=== PATIENT | male | born 1955 | race Caucasian/White ===

== ENCOUNTER 2019-09-03 18:35 | Emergency (ER) | payer MEDICARE, MEDICAID ==
[~2019-09-03] VITALS: Ht 178 cm; Wt 102.0 kg
[2019-09-03 18:35] VITALS: BP 107/61
--- NOTE | 2019-09-03 18:40 | ED General ---
General Stated Complaint: CONFUSION Source of Information: EMS, Longterm Records Exam Limitations: No Limitations History of Present Illness Date Seen by Provider: September 03, 2019 Time Seen by Provider: 18:37 Initial Comments To ER per EMS from [facility] Alzheimer's unit with reports of agitation, scratched one of the nurses. He is now calm. Timing/Duration: 1/2 Hour Severity: Mild Associated Systoms: Denies Symptoms Allergies and Home Medications Allergies Coded Allergies: No Known Drug Allergies (Unverified , 09/03/19) Patient Home Medication List Home Medication List Reviewed: Yes Review of Systems Review of Systems Constitutional: see HPI (Unable to obtain due to dementia) Physical Exam Vital Signs Vital Signs - First Documented 09/03/19 18:35 Temp 36.2 Pulse 84 Resp 18 B/P (MAP) 107/61 (76) Pulse Ox 98 Capillary Refill : Height, Weight, BMI Height: '" Weight: lbs. oz. kg; BMI Method: General Appearance: No Apparent Distress, WD/WN Eyes: Bilateral Eye Normal Inspection, Bilateral Eye PERRL, Bilateral Eye EOMI Neck: Full Range of Motion, Normal Inspection Respiratory: No Accessory Muscle Use, No Respiratory Distress Cardiovascular: Regular Rate, Rhythm, Normal Peripheral Pulses Gastrointestinal: Non Tender, Soft Extremity: Normal Capillary Refill, Normal Inspection Neurologic/Psychiatric: Alert Skin: Normal Color, Warm/Dry Progress/Results/Core Measures Suspected Sepsis SIRS Temperature: Pulse: Respiratory Rate: Laboratory Tests 09/03/19 18:40: White Blood Count 6.3 Blood Pressure / Mean: Laboratory Tests 09/03/19 18:40: Creatinine 1.28, Platelet Count 299 Results/Orders Lab Results Laboratory Tests Test 09/03/19 18:40 09/03/19 18:55 Range/Units White Blood Count 6.3 4.3-11.0 10^3/uL Red Blood Count 4.01 L 4.35-5.85 10^6/uL Hemoglobin 12.9 L 13.3-17.7 G/DL Hematocrit 38 L 40-54 % Mean Corpuscular Volume 95 80-99 FL Mean Corpuscular Hemoglobin 32 25-34 PG Mean Corpuscular Hemoglobin Concent 34 32-36 G/DL Red Cell Distribution Width 14.3 10.0-14.5 % Platelet Count 299 130-400 10^3/uL Mean Platelet Volume 9.4 7.4-10.4 FL Neutrophils (%) (Auto) 75 42-75 % Lymphocytes (%) (Auto) 19 12-44 % Monocytes (%) (Auto) 4 0-12 % Eosinophils (%) (Auto) 1 0-10 % Basophils (%) (Auto) 0 0-10 % Neutrophils # (Auto) 4.7 1.8-7.8 X 10^3 Lymphocytes # (Auto) 1.2 1.0-4.0 X 10^3 Monocytes # (Auto) 0.3 0.0-1.0 X 10^3 Eosinophils # (Auto) 0.1 0.0-0.3 10^3/uL Basophils # (Auto) 0.0 0.0-0.1 10^3/uL Sodium Level 135 135-145 MMOL/L Potassium Level 3.7 3.6-5.0 MMOL/L Chloride Level 104 98-107 MMOL/L Carbon Dioxide Level 17 L 21-32 MMOL/L Anion Gap 14 5-14 MMOL/L Blood Urea Nitrogen 19 H 7-18 MG/DL Creatinine 1.28 0.60-1.30 MG/DL Estimat Glomerular Filtration Rate 56 BUN/Creatinine Ratio 15 Glucose Level 174 H 70-105 MG/DL Calcium Level 9.2 8.5-10.1 MG/DL Urine Color YELLOW Urine Clarity CLEAR Urine pH 5.5 5-9 Urine Specific Dixon 1.020 1.016-1.022 Urine Protein NEGATIVE NEGATIVE Urine Glucose (UA) NEGATIVE NEGATIVE Urine Ketones NEGATIVE NEGATIVE Urine Nitrite NEGATIVE NEGATIVE Urine Bilirubin NEGATIVE NEGATIVE Urine Urobilinogen 0.2 < = 1.0 MG/DL Urine Leukocyte Esterase NEGATIVE NEGATIVE Urine RBC (Auto) NEGATIVE NEGATIVE Urine RBC NONE /HPF Urine WBC NONE /HPF Urine Squamous Epithelial Cells 0-2 /HPF Urine Crystals PRESENT H /LPF Urine Amorphous Sediment RARE GIOVANNI URATES H /LPF Urine Bacteria NEGATIVE /HPF Urine Casts NONE /LPF Urine Mucus NEGATIVE /LPF Urine Culture Indicated NO My Orders Orders - ZEN GARCIA APRN Cbc With Automated Diff (09/03/19 18:36) Basic Metabolic Panel (09/03/19 18:36) Ua Culture If Indicated (09/03/19 18:36) Lidocaine 2% (Urojet) (Xylocaine Urojet) (09/03/19 19:00) Temazepam Capsule (Restoril Capsule) (09/03/19 19:15) Medications Given in ED Current Medications Medications Dose Ordered Sig/Alanna Route Start Time Stop Time Status Last Admin Dose Admin Temazepam 7.5 mg ONCE ONCE PO 09/03/19 19:15 09/03/19 19:16 DC 09/03/19 19:23 7.5 MG Vital Signs/I&O 09/03/19 18:35 Temp 36.2 Pulse 84 Resp 18 B/P (MAP) 107/61 (76) Pulse Ox 98 Capillary Refill : Departure Communication (Admissions) 1925- he's been cooperative during his whole ER stay, I'll order a Restoril to help him relax this evening Impression Primary Impression: Alzheimer's dementia with behavioral disturbance Qualified Codes: G30.9 - Alzheimer's disease, unspecified; F02.81 - Dementia in other diseases classified elsewhere with behavioral disturbance Disposition: 01 HOME, SELF-CARE Condition: Stable Departure-Patient Inst. Decision time for Depature: 19:25 Patient Instructions: Dementia (DC) ZEN GARCIA APRN September 03, 2019 18:40
--- OUTSIDE RECORDS SUMMARY | 2019-09-03 18:43 | XMS REPORT | Continuity of Care Document ---
Author Author [facility] Address [address] [place] [address] Phone Care Team Providers Care Composer Teaching Artist Name Role Phone Homar Clifton PP [phone] Katlin Berger Unavailable Abdullahi PERRY, Tuyet Unavailable Unavailable Ashley Kelsey Unavailable Cathryn LAUGHLINN, Eden Hardwick Unavailable Unavailable David Malcolm Unavailable Unavailable Leela LAUGHLINN, Rubia Unavailable Ofelia MATUTE, Nneka Unavailable Unavailable Unavailable Problems Name Dates Details ACUTE MAXILLARY SINUSITIS (461.0, J01.00 ) Status: Active Acute sinusitis (461.8, J01.90) Status: Active Allergy to Flomax *GENITOURINARY AGENTS - MISCELLANEOUS* (Renamed from Flomax *GENITOURINARY AGENTS - MISCELLANEOUS*) Status: Active Asthma (493.90, J45.909) Status: Active ATRIAL FIBRILLATION (427.31, I48.91) Status: Active B12 DEFICIENCY (266.2, E53.8) Status: Active BENIGN NEOPLASM OF SKIN OF BREAST (216.5 , D23.5) Status: Active Benign prostatic hypertrophy with urinar y retention (600.01, N40.0) Status: Active BENIGN PROSTATIC HYPERTROPHY WITHOUT LOW ER URINARY TRACT SYMPTOMS (LUTS) (600.00, N40.0) Status: Active BILATERAL EDEMA OF LOWER EXTREMITY (782. 3, R60.0) Status: Active CA of prostate (185, C61) Onset:2005 Status: Active Cellulitis and abscess of leg (682.6, L0 2.419) Status: Active Chronic atrial fibrillation (Renamed fro m Atrial fibrillation, chronic) (427.31, I48.2) Status: Active Chronic kidney disease, stage III (moder ate) (585.3, N18.3) Status: Active COMMON COLD VIRUS (460, J00) Status: Active CONJUNCTIVITIS (372.30, H10.9) Status: Active CONSTIPATION, CHRONIC (564.00, K59.09) Status: Active CONTACT DERMATITIS OR ECZEMA (692.9, L25 .9) Status: Active Delusional disorder (297.1, F22) Status: Active DEPRESSION (311, F32.9) Status: Active DTAP/IPV/HBV VACCINATION (V06.8, Z23) Status: Active DYSTHYMIC DISORDER (300.4, F34.1) Status: Active Encounter for long-term (current) use of other medications (V58.69, Z79.899) Status: Active ENCOUNTER FOR SCREENING COLONOSCOPY (V76 .51, Z12.11) Status: Active FLU VACCINE - HIGH DOSE (Renamed from NE ED FOR IMMUNIZATION AGAINST INFLUENZA) (V04.81, Z23) Status: Active FLU VACCINE - HIGH DOSE (Renamed from NE ED FOR IMMUNIZATION AGAINST INFLUENZA) (V04.81, Z23) Status: Active FLU VACCINE - HIGH DOSE (Renamed from NE ED FOR IMMUNIZATION AGAINST INFLUENZA) (V04.81, Z23) Status: Active FLU VACCINE - QUADRAVALENT (Renamed from NEED FOR IMMUNIZATION AGAINST INFLUENZA) (V04.81, Z23) Status: Active GERD (GASTROESOPHAGEAL REFLUX DISEASE) ( 530.81, K21.9) Status: Active Heart failure, right (428.0) Status: Active Hematuria (599.70, R31.9) Status: Active Hypercholesterolemia (272.0, E78.00) Status: Active HYPERLIPIDEMIA (272.4, E78.5) Status: Active HYPERTENSION (401.9, I10) Status: Active Hypokalemia (276.8, E87.6) Status: Active Iron deficiency anemia (280.9, D50.9) Status: Active Magnesium deficiency (275.2, E61.2) Status: Active Malaise and fatigue (780.79, R53.81) Status: Active NEED FOR PNEUMOCOCCAL VACCINE (V03.82, Z 23) Status: Active NEOPLASM OF UNCERTAIN BEHAVIOR OF SKIN O F BREAST (238.2, D48.5) Status: Active Obesity (278.00, E66.9) Status: Active OBESITY, MORBID (278.01, E66.01) Status: Active OBSTRUCTIVE SLEEP APNEA (327.23, G47.33) Status: Active Osteomalacia (268.2, M83.9) Status: Active OTHER LYMPHEDEMA (457.1, I89.0) Status: Active PREVNAR 13 (Renamed from NEED FOR VACCIN ATION WITH 13-POLYVALENT PNEUMOCOCCAL CONJUGATE VACCINE) (V03.82, Z23) Status: Active Primary pulmonary hypertension (416.0, I 27.0) Status: Active Renal failure (ARF), acute on chronic (5 84.9) Status: Active Renal insufficiency (Renamed from Renal function impairment) (593.9, N28.9) Status: Active Right bundle branch block and incomplete left bundle branch block (426.53, I45.2) Status: Active SCHIZOPHRENIA (295.90, F20.9) Status: Active SHINGLES (053.9, B02.9) Onset:1981 Status: Active Shortness of breath (786.05, R06.02) Status: Active Stasis dermatitis (454.1, I83.10) Status: Active TYPE II DIABETES MELLITUS (250.00, E11.9 ) Status: Active Unspecified Diagnosis Status: Active Unspecified Diagnosis Status: Active Urinary incontinence (788.30, R32) Status: Active Urinary incontinence (788.30, R32) Status: Active VITAMIN B12 DEFICIENCY (266.2, E53.8) Status: Active Vitamin D deficiency (268.9, E55.9) Status: Active WEIGHT LOSS (783.21, R63.4) Status: Active Medications Name Dates Details ABILIFY, 15MG (Oral Tablet) 1 Tablet daily for 30 days Quantity: 30 {Tablet} Ordered:25-Apr-2013 Hemanth Meza MD* Start 25-Apr-2013 Active Comments: for delusional disorder AMOXICILLIN, 500MG (Oral Capsule) 1 Capsule three times daily for 10 days * Quantity: 30 {Capsule} Refills: 0 Ordered:11-Aug-2013 Rubia Swenson LPN* Start 08-May-2011 Active ATORVASTATIN CALCIUM, 40MG (Oral Tablet) 1 Tablet at bedtime for 30 days * Quantity: 30 {Tablet} Refills: 12 Ordered:21-Jun-2013 Hemanth Meza MD* Start 21-Jun-2013 Active Comments: for hypercholesterolemia CYANOCOBALAMIN, 1000MCG/ML (Injection Solution) 1 Solution use as directed every day for 7 days for 30 days * Refills: 12 Ordered: Hemanht Meza MD* Start 22-Jun-2012 Active DETROL LA, 4MG (Oral Capsule Extended Release 24 Hour) one Capsule ER 24HR daily for 30 days * Quantity: 30 {Capsule_ER_24HR} Refills: 4 Ordered:11-Aug-2013 Katlin Montero* Start 16-Jan-2010 Active Comments: for urinary incontinence (OK to use generic) Digoxin 250mcg daily Active DILTIAZEM HCL CD, 360MG (Oral Capsule Extended Release 24 Hour) 1 (one) Capsule ER 24HR Capsule ER 24HR daily for 30 days * Quantity: 30 {Capsule} Refills: 5 Ordered:01-Feb-2014 Hemanth Meza MD* Start 24-Aug-2013 Active Comments: 08/09/13 Called to Jay at [facility] Eliquis 5 MG Oral Tablet 1 (one) Tablet two times daily for 30 days * Quantity: 60 {Tablet} Refills: 0 Ordered:09-Feb-2017 Homar Clifton Kali * Start 09-Feb-2017 Active ESCITALOPRAM OXALATE, 20MG (Oral Tablet) 1 Tablet daily for 30 days * Quantity: 30 {Tablet} Refills: 2 Ordered:16-Nov-2013 Homar Clifton Kali * Start 16-Nov-2013 Active Comments: for depression FAMOTIDINE, 20MG (Oral Tablet) 1 Tablet two times daily for 30 days * Quantity: 60 {Tablet} Refills: 5 Ordered:01-Aug-2013 Hemanth Meza MD* Start 01-Aug-2013 Active Comments: for acid FUROSEMIDE, 20MG (Oral Tablet) 1 (one) Tablet two times daily for 30 days * Quantity: 60 {Tablet} Refills: 0 Ordered:01-Feb-2014 Homar Clifton Kali * Start 01-Feb-2014 Active Comments: for edema*40 mg at 7 am20 mg at 1 pm LEXAPRO, 20MG (Oral Tablet) (20 MG) Active METOPROLOL SUCCINATE ER, 25MG (Oral Tablet Extended Release 24 Hour) 1 Tablet ER 24HR two times daily for 30 days * Quantity: 60 {Tablet} Refills: 4 Ordered: Hemanth Meza MD* Start Active Comments: for hypertension MIRTAZAPINE, 15MG (Oral Tablet) 1 Tablet daily for 30 days * Quantity: 30 {Tablet} Refills: 6 Ordered:18-Jul-2013 Hemanth Meza MD* Start 18-Jul-2013 Active NYSTATIN, 075514HMHD/GM (External Powder) 1 (one) application application two times daily until clear for 0 days * Quantity: 1 {Applicator} Refills: 0 Ordered: Homar Clifton Kali * Start 15-Jan-2015 Active Comments: Called to Avinash myers [facility]--she will order from [facility].--01/15/15 Khushi OXYBUTYNIN CHLORIDE, 5MG (Oral Tablet) 1 Tablet three times daily for 30 days * Quantity: 90 {Tablet} Refills: 3 Ordered: Hemanth Meza MD* Start Active POTASSIUM CHLORIDE MICHELLE ER, 20MEQ (Oral Tablet Extended Release) 1 Tablet ER daily for 30 days * Quantity: 30 {Tablet_ER} Refills: 12 Ordered:14-Apr-2012 Radha Handy MA* Start 14-Apr-2012 Active Comments: for hypokalemia Rivaroxaban 20mg daily Active TRIAMCINOLONE ACETONIDE, 0.5% (External Cream) 1 Cream apply sparingly to rash on feet and legs for 30 days * Quantity: 45 {Gram(s)} Refills: 6 Ordered:16-Aug-2013 Rubia Swenson LPN* Start 05-Nov-2011 Active Comments: for stasis dermatitis Acetylcysteine 500mg daily Inactive ASPIRIN EC, 81MG (Oral Tablet Delayed Release) [address] daily for 30 days * Quantity: 30 {Tablet_DR} Refills: 0 Ordered:28-Jun-2011 Hemanth Meza MD* Start 28-May-2011 End 27-Jun-2011 Inactive ASPIRIN, 81MG (Oral Tablet) one daily (81 MG) * Start 20-Dec-2008 Inactive Comments: to prevent strokes and heart attacks Augmentin 875-125 MG Oral Tablet 1 (one) Tablet two times daily for 14 days * Quantity: 28 {Tablet} Refills: 0 Ordered: Homar Clifton Kali * Start 19-May-2016 End 02-Jun-2016 Inactive BUMETANIDE, 2MG (Oral Tablet) 2 (two) Tablet two times daily for 30 days * Quantity: 120 {Tablet} Refills: 0 Ordered:28-Jun-2011 Hemanth Meza MD* Start 28-May-2011 End 27-Jun-2011 Inactive CPAP 15 cm of pressure for sleep Inactive Comments: for obstructive sleep apnea CUBICIN, 500MG (Intravenous Solution Reconstituted) 1 For Solution daily for 5 days * Quantity: 5 {For_Solution} Refills: 0 Ordered:21-Dec-2012 Rubia Swenson LPN* Start 21-Dec-2012 End 26-Dec-2012 Inactive Comments: for cellulitis of the right leg DIGOXIN, 0.125MG (Oral Tablet) 1/2 Tablet every other day for 30 days * Quantity: 15 {Tablet} Refills: 12 Ordered:27-Dec-2012 Rubia Swenson LPN* Start 07-Jun-2012 End 27-Dec-2012 Inactive DILTIAZEM HCL ER, 180MG (Oral Capsule Extended Release 24 Hour) 1 Capsule ER 24HR 380mg daily for 30 days * Quantity: 30 {Capsule} Refills: 6 Ordered:24-Aug-2013 Sara Jennings LPN* Start 09-Aug-2013 End 24-Aug-2013 Inactive Comments: 08/09/13 [facility] ER [facility] DILTIAZEM HCL, 90MG (Oral Tablet) 1 Tablet every eight hours for 30 days * Quantity: 30 {Tablet} Refills: 4 Ordered:01-Aug-2013 Ethel Pierre CMA* Start 15-Jul-2013 End 01-Aug-2013 Inactive Comments: for atrial fib prevention DOXYCYCLINE HYCLATE, 100MG (Oral Capsule) 1 (one) Capsule two times daily on an empty stomach for 14 days * Quantity: 28 {Capsule} Refills: 0 Ordered:05-Nov-2011 Mahnaz Pratt * Start 05-Nov-2011 End 19-Nov-2011 Inactive Comments: for skin infection DUONEB, 0.5-2.5 (3)MG/3ML (Inhalation Solution) 1 Solution every six hours for 30 days * Refills: 0 Ordered:03-Sep-2011 Hemanth Meza MD* Start 22-Jul-2011 End 21-Aug-2011 Inactive Flonase 50 MCG/ACT Nasal Suspension 2 (two) Orange daily for 10 days * Quantity: 1 {Bottle} Refills: 0 Ordered: Ashley Larry* Start End Inactive Flonase Allergy Relief 50 MCG/ACT Nasal Suspension 2 (two) Orange daily for 30 days * Quantity: 1 {Bottle} Refills: 0 Ordered: Homar Clifton Kali * Start 19-May-2016 End 18-Jun-2016 Inactive GUAIFENESIN, 1200MG (Oral Tablet Extended Release 12 Hour) 1 two times daily (1200 MG) Inactive KEFLEX, 500MG (Oral Capsule) 1 (one) Capsule three times daily for 7 days * Quantity: 21 {Capsule} Refills: 0 Ordered:25-Jan-2016 Homar Clifton Kali * Start 25-Jan-2016 End 01-Feb-2016 Inactive LABETALOL HCL, 100MG (Oral Tablet) one Tablet two times daily for 30 days * Quantity: 60 {Tablet} Refills: 2 Ordered:19-Jan-2009 Adenike Gutierrez LPN* Start 19-Jan-2009 End 16-Jan-2010 Inactive Comments: for hypertension LISINOPRIL, 20MG (Oral Tablet) one Tablet daily for 30 days * Quantity: 30 {Tablet} Refills: 2 Ordered:15-Dec-2008 Adenike Gutierrez LPN* Start 15-Dec-2008 End 16-Jan-2010 Inactive Comments: for hypertension METOPROLOL TARTRATE, 50MG (Oral Tablet) 1 Tablet every eight hours for 30 days * Refills: 0 Ordered:28-Jun-2011 Hemanth Meza MD* Start 28-May-2011 End 27-Jun-2011 Inactive MIRALAX (Oral Packet) as needed Inactive Comments: Medication taken as needed. Mucinex 600 MG Oral Tablet Extended Release 12 Hour 2 (two) Tablet two times daily for 14 days * Quantity: 56 {Tablet} Refills: 0 Ordered: Homar Clifton Kali * Start 19-May-2016 End 02-Jun-2016 Inactive POTASSIUM CHLORIDE, 20MEQ (Oral Packet) 2 (two) Tablet(s) every eight hours for 30 days * Refills: 0 Ordered:28-Jun-2011 Hemanth Meza MD* Start 28-May-2011 End 27-Jun-2011 Inactive POTASSIUM CHLORIDE, 40 MEQ/15ML(20%) (Oral Liquid) 1 Liquid two times daily for 30 days * Refills: 0 Ordered: Hemanth Meza MD* Start End Inactive Robitussin Cough+Chest Maicol DM 20-400 MG/20ML Oral Liquid 5 milliliter every six hours prn for 5 days * Quantity: 120 {Milliliter} Refills: 0 Ordered: Ashley Larry* Start End Inactive Comments: to give for 5 days SUDAFED PE MAXIMUM STRENGTH, 10MG (Oral Tablet) 1 every four hours, as needed (10 MG) Inactive Comments: Medication taken as needed. TOBRAMYCIN SULFATE, 0.3% (Ophthalmic Solution) 2 drops in the left eye Solution four times daily, as needed for 5 days * Quantity: 1 {Solution} Refills: 0 Ordered:05-Nov-2011 Hemanth Meza MD* Start 05-Nov-2011 End 10-Nov-2011 Inactive Comments: Medication taken as needed. for infection and mattering VITAMIN D, 50,000unit (Oral Capsule) (Free Text) 1 Capsule weekly for 8 weeks for 60 days * Quantity: 8 {Capsule} Refills: 0 Ordered:31-May-2012 Radha Handy MA* Start 31-May-2012 End 30-Jul-2012 Inactive XARELTO, 20MG (Oral Tablet) one daily (20 MG) Inactive Comments: to prevent strokes with atrial fibrillation Lisinopril 5 MG Oral Tablet 1 Tablet daily for 0 days * Quantity: 30 {Tablet} Refills: 6 Ordered:09-Feb-2017 Rubjohnalevane Horton, Homar Johan Cliftoni * Start 09-Feb-2017 End 09-Feb-2017 Discontinued Xarelto 20 MG Oral Tablet 1 Tablet daily for 30 days * Quantity: 30 {Tablet} Refills: 12 Ordered:09-Feb-2017 Rubjohnalevane Horton, Homar Josh Horton Homar * Start 09-Feb-2017 End 09-Feb-2017 Discontinued Comments: to prevent strokes Allergies and Adverse Reactions Name Dates Details NKDA (Renamed from Aspirin *ANALGESICS - NonNarcotic*) (Vasile rgy) Status: Active No Known Drug Allergies (Allergy) Onset: Status : Active Past Medical History Name Dates Details Edema (782.3, R60.9) Status: Inactive HYPERTENSION, BENIGN ESSENTIAL, AGE 0-18 (401.1, I10) Status: Inactive URINARY FREQUENCY (788.41, R35.0) Status: Inactive Procedures Procedure Dates Details Flu (Influenza) *: flu shot Ordered:09-Jan-2017 IMMUNIZ ADMNIN, 1 VAC, SNGL/COMBO (29912) Completed:09-Jan-2017 INTRAMUSCULAR ADMINISTRATION OF HIGH DOS E SPLIT VIRUS PRESERVATIVE FREE INFLUENZA VACCINE ([id number]) Completed:09-Jan-2017 Follow up if no improvement or if symptoms worsen Ordered:September-2016 MRI BRAIN W/O CONTRAST ([id number]) Ordered:05-Feb-2016 IMMUNIZ ADMN, EA AD VAC SNGL/COMBO ([id number]) Ordered:31-Jan-20 16 PREVNAR 13 (94393) Completed: 6 Flu (Influenza) *: flu shot Ordered:31-Jan-2016 IMMUNIZ ADMNIN, 1 VAC, SNGL/COMBO ([id number]) Completed:31-Jan-2016 INTRAMUSCULAR ADMINISTRATION OF HIGH DOS E SPLIT VIRUS PRESERVATIVE FREE INFLUENZA VACCINE ([id number]) Completed:31-Jan-2016 MRI BRAIN W/O CONTRAST ([id number]) Ordered:10-Jan-2016 Flu (Influenza) *: flu shot Ordered:16-Jan-2015 IMMUNIZ ADMNIN, 1 VAC, SNGL/COMBO ([id number]) Completed:16-Jan-2015 INTRAMUSCULAR ADMINISTRATION OF HIGH DOS E SPLIT VIRUS PRESERVATIVE FREE INFLUENZA VACCINE ([id number]) Completed:16-Jan-2015 Follow up in 2 months Ordered:01-Feb-2014 IMMUNIZATION ADMIN ([id number]) Completed:Jan-2014 PNEUMOCOCCAL VACCINE ([id number]) Completed:2 11-Jan-2014 Flu (Influenza) *: flu shot Ordered:31-Jan-2014 IMMUNIZATION ADMIN ([id number]) Completed:Jan-2014 FLU VACCINE NO PRSV QUADRAVALENT 3 YRS+ ([id number]) Completed:31-Jan-2014 FOLLOW UP BY PCP Ordered:08-May-2011 IMMUNIZ ADMNIN, 1 VAC, SNGL/COMBO ([id number]) Ordered: 9 TDAP VACCINE IM, >7 YEARS ([id number]) Ordered:20-Dec-2008 Gallbladder Surgery - Laparoscopic Surgeries Comments: all 4 wis dom teeth removed in 1983 in [facility]; lap cholecystectomy 197; vasectomy in 1988; open prostatectomy attempt by [facility] in 2005 but due to fear of cutting nerves, they backed off on removing the prostate. Vasectomy Immunization Name Dates Details Influenza (3 years and up) Lot #: [id number] Administered on:13-Jan-2012 Comments: Site: Deltoid ( Left); Given at [facility] by Sherri PERRY Influenza (3 years and up) Lot #: [id number] Administered on:28-Dec-2012 Comments: Site: Deltoid (Right) Influenza, preserv. free, enhanced immun ogncty, IM Lot #: [id number] Administered on:16-Jan-2015 Comments: Site: Deltoid (Right) Influenza, preserv. free, enhanced immun ogncty, IM Lot #: [id number] Administered on:31-Jan-2016 Comments: Site: Deltoid (Left) Influenza, preserv. free, enhanced immun ogncty, IM Lot #: [id number] Administered on:09-Jan-2017 Comments: Site: Deltoid ( Left) Pneumococcal (2 years and up) Lot #: [id number] Administered on:19-Jan-2014 Comments: Site: Deltoid (Right); Admin by Antoinette Sheets RN Pneumococcal conjugate vaccine, 13 floresita t, IM Lot #: [id number] Administered on:31-Jan-2016 Comments: Site: Deltoid (Right) Quadrivalent Influenza Vaccine for 3 yrs & up. Lot #: [id number] Administered on:19-Jan-2014 Comments: Site: Deltoid (Left); Admin by Antoinette Sheets RN Tdap (7 years and up) Lot #: [id number] Administered on:20-Dec-2008 Comments: Site: Deltoid (Left) Family History Name Dates Details Brother 1 Comments: doesn't know Status: Active Daughter 1 Comments: doesn't know her Status: Active Daughter 2 Comments: In good health Status: Active Father Comments: , acute m yocardial condition Status: Active Maternal Grandfather Comments: Status: Active Maternal Grandmother Comments: Status: Active Mother Comments: , pneumon ia (ALS) Status: Active Paternal Grandfather Comments: Status: Active Paternal Grandmother Comments: Status: Active Sister 1 Comments: , ALS? 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 Comments: [facility] Status: Active Vital Signs Date Test Result Details 12:27 Temperature 99 f Comments: Method: T ympanic Pulse 87 /min Comments: Pattern: Regular Respiration Rate 18 /min Comments: Pattern: Unlabored O2 SAT 96 % Comments: Room air BP Systolic 132 mm[Hg] Comments: Patient P osition: Sitting; Cuff Location: Left Arm; Cuff Size: Standard BP Diastolic 80 mm[Hg] Comments: Patient P osition: Sitting; Cuff Location: Left Arm; Cuff Size: Standard Weight 319 lb Height 69 in Body Mass Index Calculated 47.11 kg/m2 Body Surface Area Calculated 2.52 m2 19-May-2016 11:12 Temperature 97.4 f Comments: Method: T ympanic Pulse 90 /min Comments: Pattern: Regular Respiration Rate 18 /min Comments: Pattern: Unlabored O2 SAT 95 % Comments: Room air BP Systolic 118 mm[Hg] Comments: Patient P osition: Sitting; Cuff Location: Left Arm; Cuff Size: Standard BP Diastolic 70 mm[Hg] Comments: Patient P osition: Sitting; Cuff Location: Left Arm; Cuff Size: Standard Weight 274.5 lb Height 69 in Body Mass Index Calculated 40.54 kg/m2 Body Surface Area Calculated 2.36 m2 05-Feb-2016 15:35 Temperature 98.2 f Comments: Method: T ympanic Pulse 94 /min Comments: Pattern: Regular Respiration Rate 20 /min Comments: Pattern: Unlabored O2 SAT 98 % Comments: Room air BP Systolic 108 mm[Hg] Comments: Patient P osition: Sitting; Cuff Location: Right Arm; Cuff Size: Standard BP Diastolic 72 mm[Hg] Comments: Patient P osition: Sitting; Cuff Location: Right Arm; Cuff Size: Standard Weight 344.25 lb Height 69 in Body Mass Index Calculated 50.84 kg/m2 Body Surface Area Calculated 2.6 m2 25-Jan-2016 11:31 Temperature 98.9 f Comments: Method: T ympanic Pulse 102 /min Comments: Pattern: Regular Respiration Rate 18 /min Comments: Pattern: Unlabored O2 SAT 99 % Comments: Room air BP Systolic 116 mm[Hg] Comments: Patient P osition: Sitting; Cuff Location: Left Arm; Cuff Size: Standard BP Diastolic 78 mm[Hg] Comments: Patient P osition: Sitting; Cuff Location: Left Arm; Cuff Size: Standard Weight 342 lb Height 69 in Body Mass Index Calculated 50.5 kg/m2 Body Surface Area Calculated 2.59 m2 17-Jul-2015 17:17 Temperature 98.3 f Pulse 84 /min Comments: Pattern: Regular Respiration Rate 20 /min Comments: Pattern: Unlabored O2 SAT 91 % Comments: Room air BP Systolic 125 mm[Hg] Comments: Patient P osition: Sitting; Cuff Location: Left Arm; Cuff Size: Standard BP Diastolic 75 mm[Hg] Comments: Patient P osition: Sitting; Cuff Location: Left Arm; Cuff Size: Standard Weight 356 lb 01-Feb-2014 10:25 Temperature 97.1 f Comments: Method: T ympanic Pulse 77 /min Comments: Pattern: Regular Respiration Rate 16 /min Comments: Pattern: Unlabored O2 SAT 98 % Comments: Room air BP Systolic 118 mm[Hg] Comments: Patient P osition: Sitting; Cuff Location: Left Arm; Cuff Size: Standard BP Diastolic 70 mm[Hg] Comments: Patient P osition: Sitting; Cuff Location: Left Arm; Cuff Size: Standard Weight 335.5 lb Height 69 in Body Mass Index Calculated 49.54 kg/m2 Body Surface Area Calculated 2.57 m2 11-Aug-2013 12:57 Temperature 98.6 f Comments: Method: T ympanic Pulse 82 /min Comments: Pattern: Regular Respiration Rate 16 /min Comments: Pattern: Unlabored O2 SAT 97 % Comments: Room air BP Systolic 110 mm[Hg] Comments: Patient P osition: Sitting; Cuff Location: Left Arm; Cuff Size: Standard BP Diastolic 70 mm[Hg] Comments: Patient P osition: Sitting; Cuff Location: Left Arm; Cuff Size: Standard Weight 336.5 lb Height 69 in Body Mass Index Calculated 49.69 kg/m2 Body Surface Area Calculated 2.58 m2 22-Feb-2013 15:30 Temperature 96.8 f Comments: Method: T ympanic Pulse 68 /min Comments: Pattern: Regular Respiration Rate 18 /min Comments: Pattern: Unlabored O2 SAT 96 % Comments: Room air BP Systolic 108 mm[Hg] Comments: Patient P osition: Sitting; Cuff Location: Left Arm; Cuff Size: Standard BP Diastolic 60 mm[Hg] Comments: Patient P osition: Sitting; Cuff Location: Left Arm; Cuff Size: Standard Weight 322 lb 25-Jan-2013 15:26 Temperature 96.6 f Comments: Method: T ympanic Pulse 80 /min Comments: Pattern: Regular Respiration Rate 18 /min Comments: Pattern: Unlabored O2 SAT 96 % Comments: Room air BP Systolic 116 mm[Hg] Comments: Patient P osition: Sitting; Cuff Location: Left Arm; Cuff Size: Standard BP Diastolic 68 mm[Hg] Comments: Patient P osition: Sitting; Cuff Location: Left Arm; Cuff Size: Standard Weight 314 lb 12-Jan-2013 15:26 Temperature 96 f Comments: Method: T ympanic Pulse 56 /min Comments: Pattern: Regular Respiration Rate 18 /min Comments: Pattern: Unlabored O2 SAT 96 % Comments: Room air BP Systolic 100 mm[Hg] Comments: Patient P osition: Sitting; Cuff Location: Left Arm; Cuff Size: Standard BP Diastolic 68 mm[Hg] Comments: Patient P osition: Sitting; Cuff Location: Left Arm; Cuff Size: Standard Weight 306 lb 29-Dec-2012 15:31 Temperature 96.6 f Comments: Method: T ympanic Pulse 85 /min Comments: Pattern: Regular Respiration Rate 18 /min Comments: Pattern: Unlabored O2 SAT 94 % Comments: Room air BP Systolic 110 mm[Hg] Comments: Patient P osition: Sitting; Cuff Location: Left Arm; Cuff Size: Standard BP Diastolic 68 mm[Hg] Comments: Patient P osition: Sitting; Cuff Location: Left Arm; Cuff Size: Standard Weight 306 lb 24-Dec-2012 15:45 Temperature 97 f Comments: Method: T ympanic Pulse 70 /min Comments: Pattern: Regular Respiration Rate 18 /min Comments: Pattern: Unlabored O2 SAT 97 % Comments: Room air BP Systolic 108 mm[Hg] Comments: Patient P osition: Sitting; Cuff Location: Left Arm; Cuff Size: Standard BP Diastolic 60 mm[Hg] Comments: Patient P osition: Sitting; Cuff Location: Left Arm; Cuff Size: Standard Weight 310.75 lb 21-Dec-2012 15:40 Temperature 96.7 f Comments: Method: T ympanic Pulse 50 /min Comments: Pattern: Regular Respiration Rate 18 /min Comments: Pattern: Unlabored O2 SAT 91 % Comments: Room air BP Systolic 116 mm[Hg] Comments: Patient P osition: Sitting; Cuff Location: Left Arm; Cuff Size: Standard BP Diastolic 68 mm[Hg] Comments: Patient P osition: Sitting; Cuff Location: Left Arm; Cuff Size: Standard Weight 313 lb 12:19 Temperature 97.6 f Comments: Method: T ympanic Pulse 76 /min Comments: Pattern: Regular O2 SAT 98 % Comments: Room air BP Systolic 102 mm[Hg] Comments: Patient P osition: Sitting; Cuff Location: Left Arm; Cuff Size: Standard BP Diastolic 64 mm[Hg] Comments: Patient P osition: Sitting; Cuff Location: Left Arm; Cuff Size: Standard Weight 322.5 lb 12:38 Temperature 96.4 f Comments: Method: T ympanic Pulse 66 /min Comments: Pattern: Regular Respiration Rate 20 /min Comments: Pattern: Unlabored BP Systolic 92 mm[Hg] Comments: Patient P osition: Sitting; Cuff Location: Right Arm; Cuff Size: Standard BP Diastolic 62 mm[Hg] Comments: Patient P osition: Sitting; Cuff Location: Right Arm; Cuff Size: Standard Weight 329.75 lb Height 69 in Body Mass Index Calculated 48.7 kg/m2 Body Surface Area Calculated 2.55 m2 18-Nov-2011 11:36 Temperature 98.4 f Comments: Method: T ympanic Pulse 54 /min Comments: Pattern: Regular O2 SAT 95 % Comments: Room air BP Systolic 122 mm[Hg] Comments: Patient P osition: Sitting; Cuff Location: Right Arm; Cuff Size: Standard BP Diastolic 60 mm[Hg] Comments: Patient P osition: Sitting; Cuff Location: Right Arm; Cuff Size: Standard Weight 403.25 lb 05-Nov-2011 11:41 Temperature 98.4 f Pulse 54 /min Comments: Pattern: Regular O2 SAT 95 % Comments: Room air BP Systolic 120 mm[Hg] Comments: Patient P osition: Sitting; Cuff Location: Left Arm; Cuff Size: Standard BP Diastolic 78 mm[Hg] Comments: Patient P osition: Sitting; Cuff Location: Left Arm; Cuff Size: Standard Weight 418.25 lb 12:35 Temperature 97.2 f Comments: Method: T ympanic Pulse 60 /min Comments: Pattern: Regular O2 SAT 94 % Comments: Room air BP Systolic 120 mm[Hg] Comments: Patient P osition: Sitting; Cuff Location: Right Arm; Cuff Size: Standard BP Diastolic 62 mm[Hg] Comments: Patient P osition: Sitting; Cuff Location: Right Arm; Cuff Size: Standard Weight 416 lb 12:19 Temperature 97.7 f Comments: Method: T emporal Pulse 84 /min Comments: Pattern: Regular Respiration Rate 20 /min Comments: Pattern: Unlabored BP Systolic 128 mm[Hg] Comments: Patient P osition: Sitting; Cuff Location: Left Arm; Cuff Size: Standard BP Diastolic 84 mm[Hg] Comments: Patient P osition: Sitting; Cuff Location: Left Arm; Cuff Size: Standard Weight 415.25 lb 11:52 Temperature 97.8 f Comments: Method: T ympanic Pulse 81 /min Comments: Pattern: Regular BP Systolic 118 mm[Hg] Comments: Patient P osition: Sitting; Cuff Location: Right Arm; Cuff Size: Standard BP Diastolic 64 mm[Hg] Comments: Patient P osition: Sitting; Cuff Location: Right Arm; Cuff Size: Standard Weight 421.25 lb 12:34 Temperature 98.8 f Comments: Method: T ympanic Pulse 90 /min Comments: Pattern: Regular Respiration Rate 20 /min Comments: Pattern: Unlabored O2 SAT 93 % Comments: Room air BP Systolic 128 mm[Hg] Comments: Patient P osition: Sitting; Cuff Location: Left Arm; Cuff Size: Standard BP Diastolic 72 mm[Hg] Comments: Patient P osition: Sitting; Cuff Location: Left Arm; Cuff Size: Standard Weight 431.75 lb 28-May-2011 13:04 Temperature 98.8 f Comments: Method: T ympanic Pulse 128 /min Comments: Pattern: Regular Respiration Rate 24 /min Comments: Pattern: Unlabored BP Systolic 138 mm[Hg] Comments: Patient P osition: Sitting; Cuff Location: Right Arm; Cuff Size: Standard BP Diastolic 88 mm[Hg] Comments: Patient P osition: Sitting; Cuff Location: Right Arm; Cuff Size: Standard Weight 512.5 lb 16-May-2011 12:42 Temperature 97.5 f Comments: Method: T ympanic Pulse 104 /min Comments: Pattern: Regular O2 SAT 93 % Comments: Room air BP Systolic 146 mm[Hg] Comments: Patient P osition: Sitting; Cuff Location: Right Arm; Cuff Size: Standard BP Diastolic 98 mm[Hg] Comments: Patient P osition: Sitting; Cuff Location: Right Arm; Cuff Size: Standard Weight 547.25 lb 08-May-2011 10:38 Temperature 97.3 f Comments: Method: T ympanic Pulse 124 /min Comments: Pattern: Regular Respiration Rate 20 /min Comments: Pattern: Unlabored O2 SAT 97 % Comments: Room air BP Systolic 142 mm[Hg] Comments: Patient P osition: Sitting; Cuff Location: Left Arm; Cuff Size: Standard BP Diastolic 74 mm[Hg] Comments: Patient P osition: Sitting; Cuff Location: Left Arm; Cuff Size: Standard Weight 539.25 lb 16-Jan-2010 16:29 Temperature 98.7 f Comments: Method: T ympanic Pulse 104 /min Comments: Pattern: Regular Respiration Rate 24 /min Comments: Pattern: Unlabored BP Systolic 180 mm[Hg] Comments: Patient P osition: Sitting; Cuff Location: Right Arm; Cuff Size: Large BP Diastolic 70 mm[Hg] Comments: Patient P osition: Sitting; Cuff Location: Right Arm; Cuff Size: Large Weight 507.5 lb 19-Jan-2009 11:56 Temperature 98.3 f Comments: Method: T ympanic Pulse 116 /min Comments: Pattern: Regular Respiration Rate 24 /min Comments: Pattern: Unlabored BP Systolic 182 mm[Hg] Comments: Patient P osition: Sitting; Cuff Location: Left Arm; Cuff Size: Standard BP Diastolic 92 mm[Hg] Comments: Patient P osition: Sitting; Cuff Location: Left Arm; Cuff Size: Standard Weight 522.25 lb 20-Dec-2008 15:48 Temperature 99 f Comments: Method: T ympanic Pulse 104 /min Comments: Pattern: Regular Respiration Rate 28 /min Comments: Pattern: Unlabored BP Systolic 144 mm[Hg] Comments: Patient P osition: Sitting; Cuff Location: Left Arm; Cuff Size: Standard BP Diastolic 66 mm[Hg] Comments: Patient P osition: Sitting; Cuff Location: Left Arm; Cuff Size: Standard Weight 525.75 lb 15-Dec-2008 12:50 Temperature 98.9 f Comments: Method: T ympanic Pulse 104 /min Comments: Pattern: Regular Respiration Rate 16 /min Comments: Pattern: Unlabored BP Systolic 154 mm[Hg] Comments: Patient P osition: Sitting; Cuff Location: Left Arm; Cuff Size: Standard BP Diastolic 96 mm[Hg] Comments: Patient P osition: Sitting; Cuff Location: Left Arm; Cuff Size: Standard Weight 532.75 lb Results Date Description Value Details 16-May-2011 14:19 CULTURE, BLOOD Comments: ANT IBIOTIC RX: YES AMOXACILLIN PRELIM MICROBIOLOGY RESULTS (Normal) Comments: SITERT ARMDAY 1 RESULT[2011 08:45 BS] NO GROWTH @ DAY 1 14:18 CULTURE, BLOOD Comments: ANTIB IOTIC RX: YES PRELIM MICROBIOLOGY RESULTS (Normal) Comments: SITERT ARMDAY 1 RESULT[2011 08:44 BS] NO GROWTH @ DAY 1 Treatment Plan * BASIC METABOLIC PANEL (99407); Ordered: 07/17/2015 * PSA (Medicare) (G0103); Ordered: 07/17/2015 * THEODORE CULTURE-URINE (31190); Ordered: 07/04/2013 * Chem 8 BMP (95258); Ordered: 12/24/2012; Note: STANDING ORDER * CBC (31853); Ordered: 12/21/2012 * Chem 8 BMP (81325); Ordered: 12/21/2012 * VITAMIN D 25 (CALCIFEROL)(73829); Ordered: 05/31/2012 * CBC (84617); Ordered: 01/09/2012 * URINALYSIS, (52950); Ordered: 01/09/2012 * THEODORE CULTURE-URINE (67656); Ordered: 01/09/2012 * BASIC METABOLIC PANEL,BMP (59201); Ordered: 10/31/2011; Note: STANDING ORDER * PHOSPHORUS (01905); Ordered: 10/31/2011 * MAGNESIUM (10677); Ordered: 10/31/2011 * VANCOMYCIN, TROUGH (21989); Ordered: 10/27/2011; Note: STANDING ORDER-Do as directed by the pharmacist. * Chem 8 BMP (60134); Ordered: 10/27/2011; Note: STANDING ORDER * Chem 8 BMP (29267); Ordered: 09/23/2011 * IRON PROFILE*; Ordered: 05/29/2011 * HGB A1C (87740); Ordered: 05/29/2011 * LIPID PANEL (51493); Ordered: 05/28/2011 * PSA (PROSTATE SPECIFIC ANTIGEN) (97221); Ordered: 05/28/2011 * METABOLIC PANEL, BASIC (89871); Ordered: 05/28/2011 * LIVER FUNCTION PANEL* (95364); Ordered: 05/28/2011 * VITAMIN B-12 (CYANOCOBALAMIN) (79886); Ordered: 05/28/2011 * TSH (THYROID STIMULATING HORMONE) (90232); Ordered: 05/28/2011 * VITAMIN D 25 (CALCIFEROL)(51938); Ordered: 05/28/2011 * MAGNESIUM (35855); Ordered: 05/28/2011 * EKG (53507); Ordered: 05/28/2011 * CBC & PLATELETS (AUTO) (86213); Ordered: 05/28/2011 * LIVER FUNCTION PANEL* (89867); Ordered: 01/16/2010 * CBC (44587); Ordered: 01/16/2010 * LIPID PANEL (89772); Ordered: 01/16/2010 * BASIC METABOLIC PANEL,BMP (76159); Ordered: 01/16/2010 * BASIC METABOLIC PANEL,BMP (45493); Ordered: 01/19/2009 * BASIC METABOLIC PANEL,BMP (75558); Ordered: 12/20/2008 * TSH (THYROID STIMULATING HORMONE) (39902); Ordered: 12/15/2008 * VITAMIN D, 25 (CALCIFEROL) (05760); Ordered: 12/15/2008 * CBC (62154); Ordered: 12/15/2008 * BASIC METABOLIC PANEL,BMP (81257); Ordered: 12/15/2008 * LIVER FUNCTION PANEL* (67130); Ordered: 12/15/2008 * LIPID PANEL (81988); Ordered: 12/15/2008 Advance Directives * Consent of Care Agreement - Effective on 01/25/2016. Expiration date unspecified. Scanned Document is available upon request. Effective: 25-Jan-2016 Encounters Medication Note - Chronic atrial fibrill ation (Renamed from Atrial fibrillation, chronic) (427.31 | I48.2) [facility] On 09-Feb-2017 16:52 to 16:56 Nurse visit (Non-Billable) - FLU VACCINE - HIGH DOSE (Renamed from NEED FOR IMMUNIZATION AGAINST INFLUENZA) (V04.81 | Z23) [facility] On 09-Jan-2017 17:53 to 17:54 Office Visit - COMMON COLD VIRUS (460 | J00) Encounter Reason: Sinusitis - Symptoms include nasal congestion, postnasal drainage, forehead pressure and cough. Onset was sudden 1 day(s) ago. The symptoms occur constantly. The patient describes this as moderate in severity and worsening. Associated symptoms include chills and sore throat.[facility] to Office Visit - ACUTE MAXILLARY SINUSITIS (461.0 | J01.00) Encounter Reason: Sinus Congestion - Symptoms include clear rhinorrhea, cheek pain, cheek pressure and cough, while symptoms do not include ear pain or headache. Onset was 4 day(s) ago. Note for "Sinusitis": pt having sinus pain and c/o eye pressure. [facility]May[facility]2016 Office Visit - BENIGN NEOPLASM OF SKIN O F BREAST (216.5 | D23.5), WEIGHT LOSS (783.21 | R63.4), BILATERAL EDEMA OF LOWER EXTREMITY (782.3 | R60.0), SCHIZOPHRENIA (295.90 | F20.9) Encounter Reason: General Exam, Follow Up - Last seen less than 1 month ago. General health: feels well with minor complaints and is sleeping well. The patient's appetite is normal. Nutrition: normal/adequate. Normal bowel and bladder habits. There are no current medical problems. There are no current emotional problems. Note for "Follow up general exam": Patient reports that he is here for routine follow up on wound on left breast. He denies any drainage or pain. 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 pt has had since last Thursday. states it is getting better. bloody today. has had bandage over it. no sore. pt does say that is is half the size it was last Thursday. there was scab on it. after taking bath, scab fell off. [facility] On 25-Jan-2016 11:30 to 13:42 Annotation/Addendum - SCHIZOPHRENIA (295 .90 | F20.9) [facility] On 10-Jan-2016 15:30 to 15:38 Office Visit - TYPE II DIABETES MELLITUS (250.00 | E11.9), CA of prostate (185) (185 | C61), BILATERAL EDEMA OF LOWER EXTREMITY (782.3 | R60.0), DYSTHYMIC DISORDER (300.4 | F34.1), ATRIAL FIBRILLATION (427.31 | I48.91), OBSTRUCTIVE SLEEP APNEA (327.23 | G47.33), OBESITY, MORBID (278.01 | E66.01), GERD (GASTROESOPHAGEAL REFLUX DISEASE) (530.81 | K21.9), HYPERLIPIDEMIA (272.4 | E78.5), B12 DEFICIENCY (266.2 | E53.8), CONSTIPATION, CHRONIC (564.00 | K59.09), Hypokalemia (276.8) (276.8 | E87.6) [facility] 17-Jul-2015 to 01-Aug-2015 Nurse Visit - FLU VACCINE - HIGH DOSE (R enamed from NEED FOR IMMUNIZATION AGAINST INFLUENZA) (V04.81 | Z23) [facility] On 16-Jan-2015 17:35 to 17:37 Medication Note - OBESITY, MORBID (278.0 1 | E66.01) [facility] On 15-Jan-2015 14:58 to 16:31 Office Visit - Edema (782.3) (782.3 | R6 0.9), URINARY FREQUENCY (788.41 | R35.0) Encounter Reason: General Exam, Follow Up - Note for "Follow up general exam": Pt here from [facility] for 60 day check up. no concerns.[facility] 01-Feb-2014 to 03-Feb-2014 Nurse visit (Non-Billable) - Pneumococca l vaccination (V03.82) 5 years + [facility] On 31-Jan-2014 17:21 to 17:23 Nurse visit (Non-Billable) - FLU VACCINE - QUADRAVALENT (Renamed from NEED FOR IMMUNIZATION AGAINST INFLUENZA) (V04.81 | Z23) [facility] On 31-Jan-2014 16:06 to 16:27 Medication Note - HYPERTENSION (401.9 | I10) [facility] On 24-Aug-2013 12:17 to 15:01 Office Visit - Chronic atrial fibrillati on (Renamed from Atrial fibrillation, chronic) (427.31 | I48.2), HYPERTENSION (401.9 | I10), HYPERLIPIDEMIA (272.4 | E78.5), OBESITY, MORBID (278.01 | E66.01), DEPRESSION (311 | F32.9), ENCOUNTER FOR SCREENING COLONOSCOPY (V76.51 | Z12.11) Encounter Reason: General - Male - The patient feels well with no complaints. Nutrition: balanced diet. Patient does not exercise. Patient sleeps 8 hours per night. Note for "General - Male": Pt lives at [facility]. No chest pain or shortness of air. Pt has hx of prostate cancer. Is currently in treatment. Never had screening colonoscopy. No family history of colon cancer. No blood in stools.[facility] 11-Aug-2013 to 18-Aug-2013 Annotation/Addendum - Unspecified Diagno sis [facility] On 04-Jul-2013 11:55 to 11:58 Office Visit - Obstructive sleep apnea ( 327.23), Chronic atrial fibrillation (Renamed from Atrial fibrillation, chronic) (427.31 | I48.2), Hypertension, benign (401.1), Edema (782.3) (782.3 | R60.9) Encounter Reason: [facility] On 22-Feb-2013 15:29 to 15:54 Office Visit - Edema (782.3), Obstructiv e sleep apnea (327.23), Hypertension, benign (401.1), Chronic atrial fibrillation (427.31) Encounter Reason[facility] 25-Jan-2013 to 03-Feb-2013 Office Visit - Edema (782.3), Obstructiv e sleep apnea (327.23), Hypertension, benign (401.1), Renal insufficiency (593.9) Encounter Reason: [facility] 12-Jan-2013 to 18-Jan-2013 Office Visit - Edema (782.3), Heart fail ure, right (428.0), Obstructive sleep apnea (327.23) Encounter Reason: [facility] 29-Dec-2012 to 04-Jan-2013 Office Visit - Cellulitis and abscess of leg (682.6), Heart failure, right (428.0), Edema (782.3) Encounter Reason: [facility] On 24-Dec-2012 15:42 to 16:19 Office Visit - Cellulitis and abscess of leg (682.6), Heart failure, right (428.0), Edema (782.3) Encounter Reason: Cellulitis - The last clinic visit was 1 week(s) ago. Symptoms include swelling, tenderness and drainage. Symptoms are located on the right leg. The symptoms occur constantly. The patient describes this as worsening. [facility] 21-Dec-2012 to 22-Dec-2012 Medication Note - ANXIETY AND DEPRESSION (300.4) [facility] On 07-Dec-2012 13:57 to 14:02 Medication Note - Delusional disorder (2 97.1) [facility] On 25-Nov-2012 15:07 to 16:36 Office Visit - Chronic atrial fibrillati on (427.31), Obstructive sleep apnea (327.23), Delusional disorder (297.1) [facility] to Office Visit - Hypertension, benign (401 .1), Chronic atrial fibrillation (427.31), Obstructive sleep apnea (327.23), Delusional disorder (297.1) Encounter Reason: Medication Review/Refill - Note for "Medication Review/Refill": [facility] - Hypertension, benign ( 401.1) [facility] On 29-Jun-2012 15:53 to 15:54 Annotation/Addendum - Vitamin B 12 defic iency (266.2) [facility] 22-Jun-2012 to 23-Jun-2012 Annotation/Addendum - Heart failure, rig ht (428.0) [facility] On 07-Jun-2012 13:12 to 22:44 Annotation/Addendum - Vitamin D deficien cy (268.9) [facility] 31-May-2012 to 01-Jun-2012 Annotation/Addendum - Hypokalemia (276.8 ) [facility] On 16-Mar-2012 10:49 to 10:50 Medication Note - Chronic atrial fibrill ation (427.31) [facility] On 30-Jan-2012 11:29 to 11:31 Annotation/Addendum [facility] On 19-Jan-2012 12:00 to 12:03 Annotation/Addendum - Hematuria (599.70) [facility] On 09-Jan-2012 15:02 to 15:42 Annotation/Addendum - Edema (782.3) [facility] On 25-Nov-2011 12:08 to 12:09 Office Visit - Fibrillation, atrial (427 .31), Edema (782.3), Obstructive sleep apnea (327.23), Hypertension, benign (401.1), Type II diabetes mellitus (250.00) [facility] 18-Nov-2011 to 19-Nov-2011 Office Visit - Edema (782.3), Cellulitis and abscess of leg (682.6), Obstructive sleep apnea (327.23), Fibrillation, atrial (427.31), Stasis dermatitis (454.1), Conjunctivitis NOS (372.30) [facility] 05-Nov-2011 to 06-Nov-2011 Office Visit - Cellulitis and abscess of leg (682.6), Chronic kidney disease, stage III (moderate) (585.3), Edema (782.3), Obstructive sleep apnea (327.23), Hypertension, benign (401.1), Fibrillation, atrial (427.31), Encounter for long- term (current) use of other medications (V58.69) [facility] to Office Visit - Edema (782.3), Cellulitis and abscess of leg (682.6), Stasis dermatitis (454.1), Chronic kidney disease, stage III (moderate) (585.3), Encounter for long-term (current) use of other medications (V58.69), 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) Encounter Reason: Ankle Swelling - Patient has had swelling in bilateral feet and ankles with rednessand abdomen has some redness to it [facility] to Annotation/Addendum - Chronic kidney dis ease, stage III (moderate) (585.3) [facility] On 11:38 to 11:41 Annotation/Addendum - Renal failure (ARF ), acute on chronic (584.9) [facility] On 12:57 to 12:58 Office Visit - Fibrillation, atrial (427 .31), Type II diabetes mellitus (250.00), Obstructive sleep apnea (327.23), Hypertension, benign (401.1) [facility] to Annotation/Addendum [facility] On 12:43 to 12:54 Office Visit - Type II diabetes mellitus (250.00), Fibrillation, atrial (427.31), Hypertension, benign (401.1), Obstructive sleep apnea (327.23) [facility] to Medication Note - Unspecified Diagnosis [facility] On 22-Jul-2011 10:19 to 10:27 Annotation/Addendum - Type II diabetes m ellitus (250.00), Iron deficiency anemia (280.9) [facility] On 29-May-2011 13:55 to 13:58 Office Visit - Fibrillation, atrial (427 .31) [facility] On 28-May-2011 13:17 to 13:41 Office Visit - Hypertension, benign (401 .1), Primary pulmonary hypertension (416.0), Obstructive sleep apnea (327.23), Edema (782.3), Fibrillation, atrial (427.31), Encounter for long-term (current) use of other medications (V58.69), Magnesium deficiency (275.2), Osteomalacia (268.2), Malaise and fatigue (780.79), Benign prostatic hypertrophy with urinary retention (600.01), CA of prostate (185), Hypercholesterolemia (272.0) [facility] 28-May-2011 to 29-May-2011 Annotation/Addendum [facility] On 20-May-2011 11:13 to 11:14 Office Visit-Pre Admission - Edema (782. 3), Hypertension, benign (401.1), Shortness of breath (786.05), Primary pulmonary hypertension (416.0), Obstructive sleep apnea (327.23), Heart failure, right (428.0) Encounter Reason: Shortness of Breath - Symptoms include exercise intolerance, fatigue and cough (in the am some times). Onset was sudden 3 week(s) ago. The patient describes this as mild. Associated symptoms include leg pain and edema. [facility] On 16-May-2011 12:42 to 13:20 Office Visit - Acute sinusitis (461.8), Obesity, morbid (278.01), Contact dermatitis and eczema, due to cause (692.9), Urinary incontinence (788.30) Encounter Reason: Shortness of Breath - Symptoms include fatigue (not as bad as he was 3 weeks ago.), palpitations, weakness and cough. Onset was gradual (started before paul as sinuses, get up and coughing in the mornings when getting up. Started sleeping in the chair and did help a little.) 2 month(s) ago. The symptoms occur constantly. The patient describes this as moderate in severity and worsening. Symptoms are exacerbated by walking, climbing stairs, exercise, lying down, coughing and talking. Symptoms are relieved by sitting up.[facility] 08-May-2011 to 09-May-2011 Office Visit - Hypertension, benign (401 .1), Hypercholesterolemia (272.0), Encounter for long-term (current) use of other medications (V58.69), Urinary incontinence (788.30), Obstructive sleep apnea (327.23), Primary pulmonary hypertension (416.0) Encounter Reason: Urinary incontinence - The onset of the urinary incontinence has been sudden and has been occurring in an intermittent pattern for 4 days. The course has been constant. The urinary incontinence occurs both day and night. The symptoms coughing ,sneezing ,straining and lifting heavy objects. The urge to urinate is present but patient cannot control the flow of urine. [facility] On 16-Jan-2010 16:29 to 16:44 Office Visit - Edema (782.3), Hypertensi on, benign (401.1), Obstructive sleep apnea (327.23), Primary pulmonary hypertension (416.0), Asthma (493.90) [facility] On 19-Jan-2009 11:37 to 12:11 Office Visit - Need for prophylactic vac cination and inoculation against combinations of disease (V06.8), Edema (782.3), Hypertension, benign (401.1), Obstructive sleep apnea (327.23), Primary pulmonary hypertension (416.0), Asthma (493.90) [facility] On 20-Dec-2008 15:48 to 16:19 Office Visit - Obstructive sleep apnea ( 327.23), Primary pulmonary hypertension (416.0), Edema (782.3), Malaise and fatigue (780.79), Hypertension, benign (401.1), Hypercholesterolemia (272.0), Encounter for long-term (current) use of other medications (V58.69), Urinary incontinence (788.30) [facility] On 15-Dec-2008 12:50 to 13:16 Insurance * Valente Trujillo ; a guarantor * MedicareA115 * [employer] [facility] [place] * MedicareB146 * [employer] Pt B * [facility] * [employer]erred [employer] * [facility] [employer]erred [employer] * [address] * [facility] * [address] [place] [address] * NORAH MED-D PDP ANAIS
--- OUTSIDE RECORDS SUMMARY | 2019-09-03 18:44 | XMS REPORT | Continuity of Care Document ---
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 Name Role Phone Homar Clifton PP Leela LAUGHLINN, Rubia Unavailable Mau Pereira Unavailable Unavailable Winston RMAKatlin Unavailable Errol AERIAL PHOTOGRAMMETRIST, Nneka Unavailable Unavailable Unavailable Problems Name Dates Details Acute sinusitis (461.8, J01.90) Status: Active Allergy to Flomax *GENITOURINARY AGENTS - MISCELLANEOUS* (Renamed from Flomax *GENITOURINARY AGENTS - MISCELLANEOUS*) Status: Active Asthma (493.90, J45.909) Status: Active ATRIAL FIBRILLATION (427.31, I48.91) Status: Active B12 DEFICIENCY (266.2, E53.8) Status: Active Benign prostatic hypertrophy with urinar [...] III (moder ate) (585.3, N18.3) Status: Active CONJUNCTIVITIS (372.30, H10.9) Status: Active [...] Hematuria (599.70, R31.9) Status: Active Hypercholesterolemia (272.0, E78.0) Status: Active HYPERLIPIDEMIA (272.4, E78.5) Status: Active HYPERTENSION (401.9, I10) Status: Active Hypokalemia (276.8, E87.6) Status: Active Iron deficiency anemia (280.9, D50.9) Status: Active Magnesium deficiency (275.2, E61.2) Status: Active Malaise and fatigue (780.79, R53.81) Status: Active NEED FOR PNEUMOCOCCAL VACCINE (V03.82, Z 23) Status: Active Obesity (278.00, E66.9) Status: Active OBESITY, MORBID (278.01, E66.01) Status: Active OBSTRUCTIVE SLEEP APNEA (327.23, G47.33) Status: Active Osteomalacia (268.2, M83.9) Status: Active OTHER LYMPHEDEMA (457.1, I89.0) Status: Active Primary pulmonary hypertension (416.0, I 27.0) Status: Active Renal failure (ARF), acute on chronic (5 84.9) Status: Active Renal insufficiency (Renamed from Renal function impairment) (593.9, N28.9) Status: Active Right bundle branch block and incomplete left bundle branch block (426.53, I45.2) Status: Active SHINGLES (053.9, B02.9) Onset:1981 Status: Active Shortness of breath (786.05, R06.02) Status: Active Stasis dermatitis (454.1, I83.10) Status: Active Surgeries Comments: all 4 wisdom teet h removed in 1983 in [facility]; lap cholecystectomy 197; vasectomy in 1988; open prostatectomy attempt by [facility] in 2005 but due to fear of cutting nerves, they backed off on removing the prostate. Status: Active TYPE II DIABETES MELLITUS (250.00, E11.9 ) Status: Active Unspecified Diagnosis Status: Active Unspecified Diagnosis Status: Active Urinary incontinence (788.30, R32) Status: Active Urinary incontinence (788.30, R32) Status: Active VITAMIN B12 DEFICIENCY (266.2, E53.8) Status: Active Vitamin D deficiency (268.9, E55.9) Status: Active Medications Name Dates Details ABILIFY, 15MG (Oral Tablet) 1 Tablet daily for 30 days Quantity: 30 Ordered :25-Apr-2013 Hemanth Meza MD* Started 25-Apr-2013 Active Comments: for delusional disorder AMOXICILLIN, 500MG (Oral Capsule) 1 Capsule three times daily for 10 days * Quantity: 30 Refills: 0 Ordered :11-Aug-2013 Rubia Swenson LPN* Started 08-May-2011 ActiveATORVASTATIN CALCIUM, 40MG (Oral Tablet) 1 Tablet at bedtime for 30 days * Quantity: 30 Refills: 12 Ordered :21-Jun-2013 Hemanth Meza MD* Started 21-Jun-2013 Active Comments: for hypercholesterolemia CYANOCOBALAMIN, 1000MCG/ML (Injection Solution) 1 Solution use as directed every day for 7 days for 30 days * Quantity: 0 Refills: 12 Ordered : Hemanth Meza MD* Started 22-Jun-2012 ActiveDETROL LA, 4MG (Oral Capsule Extended Release 24 Hour) one Capsule ER 24HR daily for 30 days * Quantity: 30 Refills: 4 Ordered :11-Aug-2013 Rubia Swenson LPN* Started 16-Jan-2010 Active Comments: for urinary incontinence (OK to use generic) Digoxin - Historical Medication 250mcg daily ActiveDILTIAZEM HCL CD, 360MG (Oral Capsule Extended Release 24 Hour) 1 (one) Capsule ER 24HR Capsule ER 24HR daily for 30 days * Quantity: 30 Refills: 5 Ordered :01-Feb-2014 Hemanth Meza MD* Started 24-Aug-2013 Active Comments: 08/09/13 Called to Jay at [facility] ESCITALOPRAM OXALATE, 20MG (Oral Tablet) 1 Tablet daily for 30 days * Quantity: 30 Refills: 2 Ordered :16-Nov-2013 Homar Clifton Kali * Started 16-Nov-2013 Active Comments: for depression FAMOTIDINE, 20MG (Oral Tablet) 1 Tablet two times daily for 30 days * Quantity: 60 Refills: 5 Ordered :01-Aug-2013 Hemanth Meza MD* Started 01-Aug-2013 Active Comments: for acid FUROSEMIDE, 20MG (Oral Tablet) 1 (one) Tablet two times daily for 30 days * Quantity: 60 Refills: 0 Ordered :01-Feb-2014 Homar Clifton Kali * Started 01-Feb-2014 Active Comments: for edema*40 mg at 7 am20 mg at 1 pm LEXAPRO, 20MG (Oral Tablet) - Historical Medication (20 MG) ActiveLISINOPRIL, 5MG (Oral Tablet) 1 Tablet daily for 0 days * Quantity: 30 Refills: 6 Ordered :20-Jul-2013 Hemanth Meza MD* Started 20-Jul-2013 ActiveMETOPROLOL SUCCINATE ER, 25MG (Oral Tablet Extended Release 24 Hour) 1 Tablet ER 24HR two times daily for 30 days * Quantity: 60 Refills: 4 Ordered : Hemanth Meza MD* Started Active Comments: for hypertension MIRTAZAPINE, 15MG (Oral Tablet) 1 Tablet daily for 30 days * Quantity: 30 Refills: 6 Ordered :18-Jul-2013 Hemanth Meza MD* Started 18-Jul-2013 ActiveNYSTATIN, 989679TYIH/GM (External Powder) 1 (one) application two times daily until clear for 0 days * Quantity: 1 Refills: 0 Ordered :15-Jan-2015 Homar Clifton Kali * Started 15-Jan-2015 Active Comments: Called to Avinash Holloway Adilson--[facility]01/15/15 Khushi OXYBUTYNIN CHLORIDE, 5MG (Oral Tablet) 1 Tablet three times daily for 30 days * Quantity: 90 Refills: 3 Ordered : Hemanth Meza MD* Started ActivePOTASSIUM CHLORIDE MICHELLE ER, 20MEQ (Oral Tablet Extended Release) 1 Tablet ER daily for 30 days * Quantity: 30 Refills: 12 Ordered :14-Apr-2012 Radha Handy MA* Started 14-Apr-2012 Active Comments: for hypokalemia Rivaroxaban - Historical Medication 20mg daily ActiveTRIAMCINOLONE ACETONIDE, 0.5% (External Cream) 1 Cream apply sparingly to rash on feet and legs for 30 days * Quantity: 45 Refills: 6 Ordered :16-Aug-2013 Rubia Swenson LPN* Started 05-Nov-2011 Active Comments: for stasis dermatitis XARELTO, 20MG (Oral Tablet) 1 Tablet daily for 30 days * Quantity: 30 Refills: 12 Ordered :01-Aug-2013 Hemanth Meza MD* Started 01-Aug-2013 Active Comments: to prevent strokes Acetylcysteine - Historical Medication 500mg daily InactiveASPIRIN EC, 81MG (Oral Tablet Delayed Release) [address] daily for 30 days * Quantity: 30 Refills: 0 Ordered :28-Jun-2011 Hemanth Meza MD* Started 28-May-2011 Ended 27-Jun-2011 InactiveASPIRIN, 81MG (Oral Tablet) - Historical Medication one daily (81 MG) * Started 20-Dec-2008 Inactive Comments: to prevent strokes and heart attacks BUMETANIDE, 2MG (Oral Tablet) 2 (two) Tablet two times daily for 30 days * Quantity: 120 Refills: 0 Ordered :28-Jun-2011 Hemanth Meza MD* Started 28-May-2011 Ended 27-Jun-2011 InactiveCPAP - Historical Medication 15 cm of pressure for sleep Inactive Comments: for obstructive sleep apnea CUBICIN, 500MG (Intravenous Solution Reconstituted) 1 For Solution daily for 5 days * Quantity: 5 Refills: 0 Ordered :21-Dec-2012 Rubia Swenson LPN* Started 21-Dec-2012 Ended 26-Dec-2012 Inactive Comments: for cellulitis of the right leg DIGOXIN, 0.125MG (Oral Tablet) 1/2 Tablet every other day for 30 days * Quantity: 15 Refills: 12 Ordered :27-Dec-2012 Rubia Swenson LPN* Started 07-Jun-2012 Ended 27-Dec-2012 InactiveDILTIAZEM HCL ER, 180MG (Oral Capsule Extended Release 24 Hour) 1 Capsule ER 24HR 380mg daily for 30 days * Quantity: 30 Refills: 6 Ordered :24-Aug-2013 Sara Jennings LPN* Started 09-Aug-2013 Ended 24-Aug-2013 Inactive Comments: 08/09/13 [facility] 360mg ER daily[facility] DILTIAZEM HCL, 90MG (Oral Tablet) 1 Tablet every eight hours for 30 days * Quantity: 30 Refills: 4 Ordered :01-Aug-2013 Ethel Pierre CMA* Started 15-Jul-2013 Ended 01-Aug-2013 Inactive Comments: for atrial fib prevention DOXYCYCLINE HYCLATE, 100MG (Oral Capsule) 1 (one) Capsule two times daily on an empty stomach for 14 days * Quantity: 28 Refills: 0 Ordered :05-Nov-2011 Mahnaz Pratt * Started 05-Nov-2011 Ended 19-Nov-2011 Inactive Comments: for skin infection DUONEB, 0.5-2.5 (3)MG/3ML (Inhalation Solution) 1 Solution every six hours for 30 days * Quantity: 0 Refills: 0 Ordered :03-Sep-2011 Hemanth Meza MD* Started 22-Jul-2011 Ended 21-Aug-2011 InactiveGUAIFENESIN, 1200MG (Oral Tablet Extended Release 12 Hour) - Historical Medication 1 two times daily (1200 MG) InactiveLABETALOL HCL, 100MG (Oral Tablet) one Tablet two times daily for 30 days * Quantity: 60 Refills: 2 Ordered :19-Jan-2009 Adenike Gutierrez LPN* Started 19-Jan-2009 Ended 16-Jan-2010 Inactive Comments: for hypertension LISINOPRIL, 20MG (Oral Tablet) one Tablet daily for 30 days * Quantity: 30 Refills: 2 Ordered :15-Dec-2008 Adenike Gutierrez LPN* Started 15-Dec-2008 Ended 16-Jan-2010 Inactive Comments: for hypertension METOPROLOL TARTRATE, 50MG (Oral Tablet) 1 Tablet every eight hours for 30 days * Quantity: 0 Refills: 0 Ordered :28-Jun-2011 Hemanth Meza MD* Started 28-May-2011 Ended 27-Jun-2011 InactiveMIRALAX (Oral Packet) - Historical Medication as needed Inactive Comments: Medication taken as needed. POTASSIUM CHLORIDE, 20MEQ (Oral Packet) 2 (two) Tablet(s) every eight hours for 30 days * Quantity: 0 Refills: 0 Ordered :28-Jun-2011 Hemanth Meza MD* Started 28-May-2011 Ended 27-Jun-2011 InactivePOTASSIUM CHLORIDE, 40 MEQ/15ML(20%) (Oral Liquid) 1 Liquid two times daily for 30 days * Quantity: 0 Refills: 0 Ordered : Hemanth Meza MD* Started Ended InactiveSUDAFED PE MAXIMUM STRENGTH, 10MG (Oral Tablet) - Historical Medication 1 every four hours, as needed (10 MG) Inactive Comments: Medication taken as needed. TOBRAMYCIN SULFATE, 0.3% (Ophthalmic Solution) 2 drops in the left eye Solution four times daily, as needed for 5 days * Quantity: 1 Refills: 0 Ordered :05-Nov-2011 Hemanth Meza MD* Started 05-Nov-2011 Ended 10-Nov-2011 Inactive Comments: Medication taken as needed. for infection and mattering VITAMIN D, 50,000unit (Oral Capsule) (Free Text) 1 Capsule weekly for 8 weeks for 60 days * Quantity: 8 Refills: 0 Ordered :31-May-2012 Radha Handy MA* Started 31-May-2012 Ended 30-Jul-2012 InactiveXARELTO, 20MG (Oral Tablet) - Historical Medication one daily (20 MG) Inactive Comments: to prevent strokes with atrial fibrillation Allergies and Adverse Reactions Name Dates Details NKDA (Renamed from Aspirin *ANALGESICS - NonNarcotic*) Status: Active Past Medical History Name Dates Details Edema (782.3, R60.9) Status: Inactive HYPERTENSION, BENIGN ESSENTIAL, AGE 0-18 (401.1, I10) Status: Inactive URINARY FREQUENCY (788.41, R35.0) Status: Inactive Procedures Procedure Dates Details Flu (Influenza) *: flu shot Ordered:16-Jan-2015 IMMUNIZ ADMNIN, 1 VAC, SNGL/COMBO (80796) Completed:16-Jan-2015 INTRAMUSCULAR ADMINISTRATION OF HIGH DOS E SPLIT VIRUS PRESERVATIVE FREE INFLUENZA VACCINE (25637) Completed:16-Jan-2015 Follow up in 2 months Ordered:01-Feb-2014 IMMUNIZATION ADMIN ([id number]) Completed:Jan-2014 PNEUMOCOCCAL VACCINE (77022) Completed:2 11-Jan-2014 Flu (Influenza) *: flu shot Ordered:31-Jan-2014 IMMUNIZATION ADMIN ([id number]) Completed:Jan-2014 FLU VACCINE NO PRSV QUADRAVALENT 3 YRS+ (38263) Completed:31-Jan-2014 FOLLOW UP BY PCP Ordered:08-May-2011 IMMUNIZ ADMNIN, 1 VAC, SNGL/COMBO (78201) Ordered: 9 TDAP VACCINE IM, >7 YEARS (70188) Ordered:20-Dec-2008 Gallbladder Surgery - Laparoscopic Vasectomy Immunization Name Dates Details Influenza (3 years and up) Lot #: [id number] Administered on:13-Jan-2012 Comments: Site: Deltoid (L eft); Given at [facility] by Sherri PERRY Influenza (3 years and up) Lot #: [id number] Administered on:28-Dec-2012 Comments: Site: Deltoid ( Right) Influenza, preserv. free, enhanced immun ogncty, IM Lot #: [id number] Administered on:16-Jan-2015 Comments: Site: Deltoid ( Right) Pneumococcal (2 years and up) Lot #: [id number] Administered on:19-Jan-2014 Comments: Site: Deltoid ( Right); Admin by Antoinette Sheets RN Quadrivalent Influenza Vaccine for 3 yrs & up. 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 @ [employer] No Drug Use Non Smoker/No Tobacco Use Vital Signs Date Test Result Details 17-Jul-2015 15:17 Temperature 98.3 f Pulse 84 /min Comments: Pattern: Regular Respiration Rate 20 /min Comments: Pattern: Unlabored O2 SAT 91 % Comments: Room air BP Systolic 125 mm[Hg] Comments: Patient P osition: Sitting; Cuff Location: Left Arm; Cuff Size: Standard BP Diastolic 75 mm[Hg] Comments: Patient P osition: Sitting; Cuff Location: Left Arm; Cuff Size: Standard Weight 356 lb 01-Feb-2014 08:25 Temperature 97.1 f Comments: Method: T ympanic [...] Body Surface Area Calculated 2.57 m2 11-Aug-2013 10:57 Temperature 98.6 f Comments: Method: T ympanic [...] Body Surface Area Calculated 2.58 m2 22-Feb-2013 13:30 Temperature 96.8 f Comments: Method: T ympanic Pulse 68 /min Comments: Pattern: Regular Respiration Rate 18 /min Comments: Pattern: Unlabored O2 SAT 96 % Comments: Room air BP Systolic 108 mm[Hg] Comments: Patient P osition: Sitting; Cuff Location: Left Arm; Cuff Size: Standard BP Diastolic 60 mm[Hg] Comments: Patient P osition: Sitting; Cuff Location: Left Arm; Cuff Size: Standard Weight 322 lb 25-Jan-2013 13:26 Temperature 96.6 f Comments: Method: T ympanic Pulse 80 /min Comments: Pattern: Regular Respiration Rate 18 /min Comments: Pattern: Unlabored O2 SAT 96 % Comments: Room air BP Systolic 116 mm[Hg] Comments: Patient P osition: Sitting; Cuff Location: Left Arm; Cuff Size: Standard BP Diastolic 68 mm[Hg] Comments: Patient P osition: Sitting; Cuff Location: Left Arm; Cuff Size: Standard Weight 314 lb 12-Jan-2013 13:26 Temperature 96 f Comments: Method: T ympanic Pulse 56 /min Comments: Pattern: Regular Respiration Rate 18 /min Comments: Pattern: Unlabored O2 SAT 96 % Comments: Room air BP Systolic 100 mm[Hg] Comments: Patient P osition: Sitting; Cuff Location: Left Arm; Cuff Size: Standard BP Diastolic 68 mm[Hg] Comments: Patient P osition: Sitting; Cuff Location: Left Arm; Cuff Size: Standard Weight 306 lb 29-Dec-2012 13:31 Temperature 96.6 f Comments: Method: T ympanic Pulse 85 /min Comments: Pattern: Regular Respiration Rate 18 /min Comments: Pattern: Unlabored O2 SAT 94 % Comments: Room air BP Systolic 110 mm[Hg] Comments: Patient P osition: Sitting; Cuff Location: Left Arm; Cuff Size: Standard BP Diastolic 68 mm[Hg] Comments: Patient P osition: Sitting; Cuff Location: Left Arm; Cuff Size: Standard Weight 306 lb 24-Dec-2012 13:45 Temperature 97 f Comments: Method: T ympanic Pulse 70 /min Comments: Pattern: Regular Respiration Rate 18 /min Comments: Pattern: Unlabored O2 SAT 97 % Comments: Room air BP Systolic 108 mm[Hg] Comments: Patient P osition: Sitting; Cuff Location: Left Arm; Cuff Size: Standard BP Diastolic 60 mm[Hg] Comments: Patient P osition: Sitting; Cuff Location: Left Arm; Cuff Size: Standard Weight 310.75 lb 21-Dec-2012 13:40 Temperature 96.7 f Comments: Method: T ympanic Pulse 50 /min Comments: Pattern: Regular Respiration Rate 18 /min Comments: Pattern: Unlabored O2 SAT 91 % Comments: Room air BP Systolic 116 mm[Hg] Comments: Patient P osition: Sitting; Cuff Location: Left Arm; Cuff Size: Standard BP Diastolic 68 mm[Hg] Comments: Patient P osition: Sitting; Cuff Location: Left Arm; Cuff Size: Standard Weight 313 lb 10:19 Temperature 97.6 f Comments: Method: T ympanic Pulse 76 /min Comments: Pattern: Regular O2 SAT 98 % Comments: Room air BP Systolic 102 mm[Hg] Comments: Patient P osition: Sitting; Cuff Location: Left Arm; Cuff Size: Standard BP Diastolic 64 mm[Hg] Comments: Patient P osition: Sitting; Cuff Location: Left Arm; Cuff Size: Standard Weight 322.5 lb 10:38 Temperature 96.4 f Comments: Method: T ympanic [...] Body Surface Area Calculated 2.55 m2 18-Nov-2011 09:36 Temperature 98.4 f Comments: Method: T ympanic Pulse 54 /min Comments: Pattern: Regular O2 SAT 95 % Comments: Room air BP Systolic 122 mm[Hg] Comments: Patient P osition: Sitting; Cuff Location: Right Arm; Cuff Size: Standard BP Diastolic 60 mm[Hg] Comments: Patient P osition: Sitting; Cuff Location: Right Arm; Cuff Size: Standard Weight 403.25 lb 05-Nov-2011 09:41 Temperature 98.4 f Pulse 54 /min Comments: Pattern: Regular O2 SAT 95 % Comments: Room air BP Systolic 120 mm[Hg] Comments: Patient P osition: Sitting; Cuff Location: Left Arm; Cuff Size: Standard BP Diastolic 78 mm[Hg] Comments: Patient P osition: Sitting; Cuff Location: Left Arm; Cuff Size: Standard Weight 418.25 lb 10:35 Temperature 97.2 f Comments: Method: T ympanic Pulse 60 /min Comments: Pattern: Regular O2 SAT 94 % Comments: Room air BP Systolic 120 mm[Hg] Comments: Patient P osition: Sitting; Cuff Location: Right Arm; Cuff Size: Standard BP Diastolic 62 mm[Hg] Comments: Patient P osition: Sitting; Cuff Location: Right Arm; Cuff Size: Standard Weight 416 lb 10:19 Temperature 97.7 f Comments: Method: T emporal Pulse 84 /min Comments: Pattern: Regular Respiration Rate 20 /min Comments: Pattern: Unlabored BP Systolic 128 mm[Hg] Comments: Patient P osition: Sitting; Cuff Location: Left Arm; Cuff Size: Standard BP Diastolic 84 mm[Hg] Comments: Patient P osition: Sitting; Cuff Location: Left Arm; Cuff Size: Standard Weight 415.25 lb 09:52 Temperature 97.8 f Comments: Method: T ympanic Pulse 81 /min Comments: Pattern: Regular BP Systolic 118 mm[Hg] Comments: Patient P osition: Sitting; Cuff Location: Right Arm; Cuff Size: Standard BP Diastolic 64 mm[Hg] Comments: Patient P osition: Sitting; Cuff Location: Right Arm; Cuff Size: Standard Weight 421.25 lb 10:34 Temperature 98.8 f Comments: Method: T ympanic Pulse 90 /min Comments: Pattern: Regular Respiration Rate 20 /min Comments: Pattern: Unlabored O2 SAT 93 % Comments: Room air BP Systolic 128 mm[Hg] Comments: Patient P osition: Sitting; Cuff Location: Left Arm; Cuff Size: Standard BP Diastolic 72 mm[Hg] Comments: Patient P osition: Sitting; Cuff Location: Left Arm; Cuff Size: Standard Weight 431.75 lb 28-May-2011 11:04 Temperature 98.8 f Comments: Method: T ympanic Pulse 128 /min Comments: Pattern: Regular Respiration Rate 24 /min Comments: Pattern: Unlabored BP Systolic 138 mm[Hg] Comments: Patient P osition: Sitting; Cuff Location: Right Arm; Cuff Size: Standard BP Diastolic 88 mm[Hg] Comments: Patient P osition: Sitting; Cuff Location: Right Arm; Cuff Size: Standard Weight 512.5 lb 16-May-2011 10:42 Temperature 97.5 f Comments: Method: T ympanic Pulse 104 /min Comments: Pattern: Regular O2 SAT 93 % Comments: Room air BP Systolic 146 mm[Hg] Comments: Patient P osition: Sitting; Cuff Location: Right Arm; Cuff Size: Standard BP Diastolic 98 mm[Hg] Comments: Patient P osition: Sitting; Cuff Location: Right Arm; Cuff Size: Standard Weight 547.25 lb 08-May-2011 08:38 Temperature 97.3 f Comments: Method: T ympanic Pulse 124 /min Comments: Pattern: Regular Respiration Rate 20 /min Comments: Pattern: Unlabored O2 SAT 97 % Comments: Room air BP Systolic 142 mm[Hg] Comments: Patient P osition: Sitting; Cuff Location: Left Arm; Cuff Size: Standard BP Diastolic 74 mm[Hg] Comments: Patient P osition: Sitting; Cuff Location: Left Arm; Cuff Size: Standard Weight 539.25 lb 16-Jan-2010 14:29 Temperature 98.7 f Comments: Method: T ympanic Pulse 104 /min Comments: Pattern: Regular Respiration Rate 24 /min Comments: Pattern: Unlabored BP Systolic 180 mm[Hg] Comments: Patient P osition: Sitting; Cuff Location: Right Arm; Cuff Size: Large BP Diastolic 70 mm[Hg] Comments: Patient P osition: Sitting; Cuff Location: Right Arm; Cuff Size: Large Weight 507.5 lb 19-Jan-2009 09:56 Temperature 98.3 f Comments: Method: T ympanic Pulse 116 /min Comments: Pattern: Regular Respiration Rate 24 /min Comments: Pattern: Unlabored BP Systolic 182 mm[Hg] Comments: Patient P osition: Sitting; Cuff Location: Left Arm; Cuff Size: Standard BP Diastolic 92 mm[Hg] Comments: Patient P osition: Sitting; Cuff Location: Left Arm; Cuff Size: Standard Weight 522.25 lb 20-Dec-2008 13:48 Temperature 99 f Comments: Method: T ympanic Pulse 104 /min Comments: Pattern: Regular Respiration Rate 28 /min Comments: Pattern: Unlabored BP Systolic 144 mm[Hg] Comments: Patient P osition: Sitting; Cuff Location: Left Arm; Cuff Size: Standard BP Diastolic 66 mm[Hg] Comments: Patient P osition: Sitting; Cuff Location: Left Arm; Cuff Size: Standard Weight 525.75 lb 15-Dec-2008 10:50 Temperature 98.9 f Comments: Method: T ympanic Pulse 104 /min Comments: Pattern: Regular Respiration Rate 16 /min Comments: Pattern: Unlabored BP Systolic 154 mm[Hg] Comments: Patient P osition: Sitting; Cuff Location: Left Arm; Cuff Size: Standard BP Diastolic 96 mm[Hg] Comments: Patient P osition: Sitting; Cuff Location: Left Arm; Cuff Size: Standard Weight 532.75 lb Results Date Description Value Details 16-May-2011 12:19 CULTURE, BLOOD Comments: ANT IBIOTIC RX: YES AMOXACILLIN PRELIM MICROBIOLOGY RESULTS (Normal) Comments: SITERT ARMDAY 1 RESULT[2011 08:45 BS] NO GROWTH @ DAY 1 12:18 CULTURE, BLOOD Comments: ANTIB IOTIC RX: YES PRELIM MICROBIOLOGY RESULTS (Normal) Comments: SITERT ARMDAY 1 RESULT[2011 08:44 BS] NO GROWTH @ DAY 1 Treatment Plan * BASIC METABOLIC PANEL (18850); Ordered: 07/17/2015 * PSA (Medicare) (G0103); Ordered: 07/17/2015 * THEODORE CULTURE-URINE (87654); Ordered: 07/04/2013 * Chem 8 BMP (09171); Ordered: 12/24/2012; Note: STANDING ORDER * CBC (68063); Ordered: 12/21/2012 * Chem 8 BMP (78805); Ordered: 12/21/2012 * VITAMIN D 25 (CALCIFEROL)(18471); Ordered: 05/31/2012 * CBC (20822); Ordered: 01/09/2012 * URINALYSIS, (37638); Ordered: 01/09/2012 * THEODORE CULTURE-URINE (79042); Ordered: 01/09/2012 * BASIC METABOLIC PANEL,BMP (00777); Ordered: 10/31/2011; Note: STANDING ORDER * PHOSPHORUS (27806); Ordered: 10/31/2011 * MAGNESIUM (85881); Ordered: 10/31/2011 * VANCOMYCIN, TROUGH (72977); Ordered: 10/27/2011; Note: STANDING ORDER-Do as directed by the pharmacist. * Chem 8 BMP (03316); Ordered: 10/27/2011; Note: STANDING ORDER * Chem 8 BMP (36831); Ordered: 09/23/2011 * IRON PROFILE*; Ordered: 05/29/2011 * HGB A1C (55303); Ordered: 05/29/2011 * LIPID PANEL (54568); Ordered: 05/28/2011 * PSA (PROSTATE SPECIFIC ANTIGEN) (42226); Ordered: 05/28/2011 * METABOLIC PANEL, BASIC (54238); Ordered: 05/28/2011 * LIVER FUNCTION PANEL* (09922); Ordered: 05/28/2011 * VITAMIN B-12 (CYANOCOBALAMIN) (10460); Ordered: 05/28/2011 * TSH (THYROID STIMULATING HORMONE) (72991); Ordered: 05/28/2011 * VITAMIN D 25 (CALCIFEROL)(35170); Ordered: 05/28/2011 * MAGNESIUM (85072); Ordered: 05/28/2011 * EKG (75249); Ordered: 05/28/2011 * CBC & PLATELETS (AUTO) (84143); Ordered: 05/28/2011 * LIVER FUNCTION PANEL* (68537); Ordered: 01/16/2010 * CBC (40408); Ordered: 01/16/2010 * LIPID PANEL (71196); Ordered: 01/16/2010 * BASIC METABOLIC PANEL,BMP (80143); Ordered: 01/16/2010 * BASIC METABOLIC PANEL,BMP (87745); Ordered: 01/19/2009 * BASIC METABOLIC PANEL,BMP (01737); Ordered: 12/20/2008 * TSH (THYROID STIMULATING HORMONE) (37259); Ordered: 12/15/2008 * VITAMIN D, 25 (CALCIFEROL) (70359); Ordered: 12/15/2008 * CBC (18138); Ordered: 12/15/2008 * BASIC METABOLIC PANEL,BMP (14603); Ordered: 12/15/2008 * LIVER FUNCTION PANEL* (07282); Ordered: 12/15/2008 * LIPID PANEL (13102); Ordered: 12/15/2008 Advance Directives No Advance Directives available. Encounters Review - TYPE II DIABETES MELLITUS (250. 00 | E11.9), CA of prostate (185) (185 [...] | K59.09), Hypokalemia (276.8) (276.8 | E87.6) [facility] On 17-Jul-2015 15:17 Nurse Visit - FLU VACCINE - HIGH DOSE (R enamed from NEED FOR IMMUNIZATION AGAINST INFLUENZA) (V04.81 | Z23) [facility] On 16-Jan-2015 15:35 Medication Note - OBESITY, MORBID (278.0 1 | E66.01) [facility] On 15-Jan-2015 12:58 Office Visit - Edema (782.3) (782.3 | R6 0.9), URINARY FREQUENCY (788.41 | R35.0) Encounter Reason: General Exam, Follow Up - Note for "Follow up general exam": Pt here from [facility] for 60 day check up. no concerns.[facility] On 01-Feb-2014 08:24 Nurse visit (Non-Billable) - Pneumococca l vaccination (V03.82) 5 years + [facility] On 31-Jan-2014 15:21 Nurse visit (Non-Billable) - FLU VACCINE - QUADRAVALENT (Renamed from NEED FOR IMMUNIZATION AGAINST INFLUENZA) (V04.81 | Z23) [facility] On 31-Jan-2014 14:06 Medication Note - HYPERTENSION (401.9 | I10) [facility] On 24-Aug-2013 10:17 Office Visit - Chronic atrial fibrillati on [...] "General - Male": Pt lives at [facility]. No chest pain or shortness of air. Pt has hx of prostate cancer. Is currently in treatment. Never had screening colonoscopy. No family history of colon cancer. No blood in stools.[facility] On 11-Aug-2013 10:54 Annotation/Addendum - Unspecified Diagno sis [facility] On 04-Jul-2013 09:55 Office Visit - Obstructive sleep apnea ( 327.23), Chronic atrial fibrillation (Renamed from Atrial fibrillation, chronic) (427.31 | I48.2), Hypertension, benign (401.1), Edema (782.3) (782.3 | R60.9) Encounter Reason[facility] 22-Feb-2013 13:29 Office Visit - Edema (782.3), Obstructiv e sleep apnea (327.23), Hypertension, benign (401.1), Chronic atrial fibrillation (427.31) Encounter Reason: Review [facility] results[facility] On 25-Jan-2013 13:25 Office Visit - Edema (782.3), Obstructiv e sleep apnea (327.23), Hypertension, benign (401.1), Renal insufficiency (593.9) Encounter Reason: [facility]itis[facility] On 12-Jan-2013 13:24 Office Visit - Edema (782.3), Heart fail ure, right (428.0), Obstructive sleep apnea (327.23) Encounter Reason: [facility]itis[facility] On 29-Dec-2012 13:26 Office Visit - Cellulitis and abscess of leg (682.6), Heart failure, right (428.0), Edema (782.3) Encounter Reason: [facility]itis[facility] On 24-Dec-2012 13:42 Office Visit - Cellulitis and abscess of leg (682.6), Heart failure, right (428.0), Edema (782.3) Encounter Reason: Cellulitis - The last clinic visit was 1 week(s) ago. Symptoms include swelling, tenderness and drainage. Symptoms are located on the right leg. The symptoms occur constantly. The patient describes this as worsening. [facility] On 21-Dec-2012 13:38 Medication Note - ANXIETY AND DEPRESSION (300.4) [facility] On 07-Dec-2012 11:57 Medication Note - Delusional disorder (2 97.1) [facility] On 25-Nov-2012 13:07 Office Visit - Chronic atrial fibrillati on (427.31), Obstructive sleep apnea (327.23), Delusional disorder (297.1) [facility] On 10:19 Office Visit - Hypertension, benign (401 .1), Chronic atrial fibrillation (427.31), Obstructive sleep apnea (327.23), Delusional disorder (297.1) Encounter Reason: Medication Review/Refill - Note for "Medication Review/Refill": [facility] dose [facility] On 10:37 Medication Note - Hypertension, benign ( 401.1) [facility] On 29-Jun-2012 13:53 Annotation/Addendum - Vitamin B 12 defic iency (266.2) [facility] On 22-Jun-2012 17:11 Annotation/Addendum - Heart failure, rig ht (428.0) [facility] On 07-Jun-2012 11:12 Annotation/Addendum - Vitamin D deficien cy (268.9) [facility] On 31-May-2012 16:31 Annotation/Addendum - Hypokalemia (276.8 ) [facility] On 16-Mar-2012 08:49 Medication Note - Chronic atrial fibrill ation (427.31) [facility] On 30-Jan-2012 09:29 Annotation/Addendum [facility] On 19-Jan-2012 10:00 Annotation/Addendum - Hematuria (599.70) [facility] On 09-Jan-2012 13:02 Annotation/Addendum - Edema (782.3) [facility] On 25-Nov-2011 10:08 Office Visit - Fibrillation, atrial (427 .31), Edema (782.3), Obstructive sleep apnea (327.23), Hypertension, benign (401.1), Type II diabetes mellitus (250.00) [facility] On 18-Nov-2011 09:35 Office Visit - Edema (782.3), Cellulitis and abscess of leg (682.6), Obstructive sleep apnea (327.23), Fibrillation, atrial (427.31), Stasis dermatitis (454.1), Conjunctivitis NOS (372.30) [facility] On 05-Nov-2011 09:41 Office Visit - Cellulitis and abscess of leg (682.6), Chronic kidney disease, stage III (moderate) (585.3), Edema (782.3), Obstructive sleep apnea (327.23), Hypertension, benign (401.1), Fibrillation, atrial (427.31), Encounter for long- term (current) use of other medications (V58.69) [facility] On 10:35 Office Visit - Edema (782.3), Cellulitis and abscess of leg (682.6), Stasis dermatitis (454.1), Chronic kidney disease, stage III (moderate) (585.3), Encounter for long-term (current) use of other medications (V58.69), 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) Encounter Reason: Ankle Swelling - Patient has had swelling in bilateral feet and ankles with rednessand abdomen has some redness to it also[facility] 10:18 Annotation/Addendum - Chronic kidney dis ease, stage III (moderate) (585.3) [facility] On 09:38 Annotation/Addendum - Renal failure (ARF ), acute on chronic (584.9) [facility] On 10:57 Office Visit - Fibrillation, atrial (427 .31), Type II diabetes mellitus (250.00), Obstructive sleep apnea (327.23), Hypertension, benign (401.1) [facility] On 09:52 Annotation/Addendum [facility] On 10:43 Office Visit - Type II diabetes mellitus (250.00), Fibrillation, atrial (427.31), Hypertension, benign (401.1), Obstructive sleep apnea (327.23) [facility] On 10:34 Medication Note - Unspecified Diagnosis [facility] On 22-Jul-2011 08:19 Annotation/Addendum - Type II diabetes m rahulitus (250.00), Iron deficiency anemia (280.9) [facility] On 29-May-2011 11:55 Office Visit - Fibrillation, atrial (427 .31) [facility] On 28-May-2011 11:17 Office Visit - Hypertension, benign (401 .1), Primary pulmonary hypertension (416.0), Obstructive sleep apnea (327.23), Edema (782.3), Fibrillation, atrial (427.31), Encounter for long-term (current) use of other medications (V58.69), Magnesium deficiency (275.2), Osteomalacia (268.2), Malaise and fatigue (780.79), Benign prostatic hypertrophy with urinary retention (600.01), CA of prostate (185), Hypercholesterolemia (272.0) [facility] On 28-May-2011 11:01 Annotation/Addendum [facility] On 20-May-2011 09:13 Office Visit-Pre Admission - Edema (782. 3), Hypertension, benign (401.1), Shortness of breath (786.05), Primary pulmonary hypertension (416.0), Obstructive sleep apnea (327.23), Heart failure, right (428.0) Encounter Reason: Shortness of Breath - Symptoms include exercise intolerance, fatigue and cough (in the am some times). Onset was sudden 3 week(s) ago. The patient describes this as mild. Associated symptoms include leg pain and edema. [facility] On 16-May-2011 10:42 Office Visit - Acute sinusitis (461.8), Obesity, [...] and talking. Symptoms are relieved by sitting up.[facility] On 08-May-2011 08:38 Office Visit - Hypertension, benign (401 .1), [...] patient cannot control the flow of urine. [facility] On 16-Jan-2010 14:29 Office Visit - Edema (782.3), Hypertensi on, benign (401.1), Obstructive sleep apnea (327.23), Primary pulmonary hypertension (416.0), Asthma (493.90) [facility] On 19-Jan-2009 09:37 Office Visit - Need for prophylactic vac cination and inoculation against combinations of disease (V06.8), Edema (782.3), Hypertension, benign (401.1), Obstructive sleep apnea (327.23), Primary pulmonary hypertension (416.0), Asthma (493.90) [facility] On 20-Dec-2008 13:48 Office Visit - Obstructive sleep apnea ( 327.23), Primary pulmonary hypertension (416.0), Edema (782.3), Malaise and fatigue (780.79), Hypertension, benign (401.1), Hypercholesterolemia (272.0), Encounter for long-term (current) use of other medications (V58.69), Urinary incontinence (788.30) [facility] On 15-Dec-2008 10:50 Insurance * Valente Trujillo ; a guarantor * MedicareA115 * [employer] * MedicareB146 * [employer] Pt [employer] * [employer] * [employer] Primary Preferred Three Tier * [employer] Primary Preferred Three Tier * [facility] * [facility] * 2014 [place] * [place] MED-D PDP LOW
--- OUTSIDE RECORDS SUMMARY | 2019-09-03 18:44 | XMS REPORT | Continuity of Care Document ---
Author Author [facility] Address [address] [place] [address] Phone Care Team Providers Care Manager Decision Support Name Role Phone Younger Hemanth SEGOVIA PP Rubia Swenson LPN Unavailable Unavailable Ethel Orozco CMA Unavailable Unavailable Unavailable History of Present Illness No History Of Present Illness Information Available Problems Name Dates Details Acute sinusitis (461.8, J01.90) Status: Active ANXIETY AND DEPRESSION (300.4) Status: Active Asthma (493.90, J45.909) Status: Active Chronic atrial fibrillation (Renamed fro m Atrial fibrillation, chronic) (427.31, I48.2) Status: Active Benign prostatic hypertrophy with urinar y retention (600.01, N40.0) Status: Active Benign prostatic hypertrophy without low er urinary tract symptoms (600.00) (600.00) Status: Active CA of prostate (185) Onset:2005 Status: Active Cellulitis and abscess of leg (682.6, L0 3.119) Status: Active Chronic kidney disease, stage III (585. 3) (585.3, N18.3) Status: Active Conjunctivitis NOS (372.30) Status: Active Contact dermatitis and eczema, due to ca use (692.9) Status: Active Delusional disorder (297.1, F22) Status: Active Edema (782.3, R60.9) Status: Active Encounter for long-term use of other me dications (V58.69) (V58.69, Z79.899) Status: Active Fibrillation, atrial (427.31) Status: Active Allergy to Flomax *GENITOURINARY AGENTS - MISCELLANEOUS* (Renamed from Flomax *GENITOURINARY AGENTS - MISCELLANEOUS*) Status: Active Heart failure, right (428.0) Status: Active Hematuria (599.70, R31.9) Status: Active Hypercholesterolemia (272.0, E78.0) Status: Active Hypertension, benign (401.1) Status: Active Hypokalemia (276.8, E87.6) Status: Active Iron deficiency anemia (280.9, D50.9) Status: Active Magnesium deficiency (275.2, E61.2) Status: Active Malaise and fatigue (780.79, R53.81) Status: Active Need for prophylactic vaccination and in oculation against combinations of disease (V06.8) Status: Active 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 Obesity (278.00, E66.9) Status: Active Obesity, morbid (278.01) Status: Active Obstructive sleep apnea (327.23) Status: Active Osteomalacia (268.2, M83.9) Status: Active Primary pulmonary hypertension (416.0, I 27.0) Status: Active Renal failure , acute on chronic (584.9) (584.9) Status: Active Renal insufficiency (Renamed from Renal function impairment) (593.9, N28.9) Status: Active Right bundle branch block and incomplete left bundle branch block (426.53, I45.2) Status: Active Shingles (053.9) Onset:1981 Status: Active Shortness of breath (786.05, R06.02) Status: Active Stasis dermatitis (454.1, I83.10) Status: Active Type II diabetes mellitus (250.00) Status: Active Unspecified Diagnosis Status: Active Unspecified Diagnosis Status: Active Urinary incontinence (788.30, R32) Status: Active Urinary incontinence (788.30, R32) Status: Active Vitamin B 12 deficiency (266.2) Status: Active Vitamin D deficiency (268.9, E55.9) Status: Active Medications Name Dates Details ABILIFY, 15MG (Oral Tablet) 1 Tablet daily for 30 days Quantity: 30 Ordered :25-Apr-2013 Hemanth Murray MD, David MD* Started 25-Apr-2013 Active Comments: for delusional disorder Acetylcysteine - Historical Medication 500mg daily ActiveAMOXICILLIN, 500MG (Oral Capsule) 1 Capsule three times daily for 10 days * Quantity: 30 Refills: 0 Ordered :08-May-2011 Rubia Swenson LPN* Started 08-May-2011 ActiveASPIRIN, 81MG (Oral Tablet) - Historical Medication one daily * Started 20-Dec-2008 Active Comments: to prevent strokes and heart attacks ATORVASTATIN CALCIUM, 40MG (Oral Tablet) 1 Tablet at bedtime for 30 days * Quantity: 30 Refills: 12 Ordered :21-Jun-2013 Hemanth Murray MD, David MD* Started 21-Jun-2013 Active Comments: for hypercholesterolemia CPAP - Historical Medication 15 cm of pressure for sleep Active Comments: for obstructive sleep apnea CYANOCOBALAMIN, 1000MCG/ML (Injection Solution) 1 Solution use as directed every day for 7 days for 30 days * Quantity: 0 Refills: 12 Ordered : Hemanth Murray MD, David MD* Started 22-Jun-2012 ActiveDETROL LA, 4MG (Oral Capsule Extended Release 24 Hour) one Capsule ER 24HR daily for 30 days * Quantity: 30 Refills: 4 Ordered :16-Jan-2010 Rubia Swenson LPN* Started 16-Jan-2010 Active Comments: for urinary incontinence (OK to use generic) Digoxin - Historical Medication 250mcg daily ActiveDILTIAZEM HCL CR, 180MG (Oral Capsule Extended Release 24 Hour) 1 Capsule ER 24HR two times daily for 30 days * Quantity: 0 Refills: 12 Ordered :23-Jun-2012 Hemanth Murray MD, David MD* Started 23-Jun-2012 ActiveDILTIAZEM HCL, 90MG (Oral Tablet) 1 Tablet every eight hours for 30 days * Quantity: 30 Refills: 4 Ordered :15-Jul-2013 Hemanth Murray MD, David MD* Started 15-Jul-2013 Ended 27-Jun-2011 Active Comments: for atrial fib prevention ESCITALOPRAM OXALATE, 20MG (Oral Tablet) 1 Tablet daily for 30 days * Quantity: 30 Refills: 5 Ordered :15-Jul-2013 Hemanth Murray MD, David MD* Started 15-Jul-2013 Active Comments: for depression FAMOTIDINE, 20MG (Oral Tablet) 1 Tablet two times daily for 30 days * Quantity: 60 Refills: 5 Ordered :01-Aug-2013 Hemanth Murray MD, David MD* Started 01-Aug-2013 Active Comments: for acid FUROSEMIDE, 80MG (Oral Tablet) one Tablet two times daily for 30 days * Quantity: 60 Refills: 12 Ordered :09-Feb-2013 Hemanth Murray MD, David MD* Started 09-Feb-2013 Active Comments: for edema LISINOPRIL, 5MG (Oral Tablet) 1 Tablet daily for 0 days * Quantity: 30 Refills: 6 Ordered :20-Jul-2013 Hemanth Murray MD, David MD* Started 20-Jul-2013 ActiveMETOPROLOL SUCCINATE ER, 25MG (Oral Tablet Extended Release 24 Hour) 1 Tablet ER 24HR two times daily for 30 days * Quantity: 0 Refills: 12 Ordered :24-Dec-2012 Hemanth Murray MD, David MD* Started 24-Dec-2012 ActiveMIRALAX (Oral Packet) - Historical Medication as needed Active Comments: Medication taken as needed. MIRTAZAPINE, 15MG (Oral Tablet) 1 Tablet daily for 30 days * Quantity: 30 Refills: 6 Ordered :18-Jul-2013 Hemanth Murray MD, Hemanth SEGOVIA* Started 18-Jul-2013 ActiveOXYBUTYNIN CHLORIDE, 5MG (Oral Tablet) 1 Tablet two times daily for 30 days * Quantity: 60 Refills: 5 Ordered :18-Feb-2013 Hemanth Murray MD, David MD* Started 18-Feb-2013 ActivePOTASSIUM CHLORIDE MICHELLE ER, 20MEQ (Oral Tablet Extended Release) 1 Tablet ER daily for 30 days * Quantity: 30 Refills: 12 Ordered :14-Apr-2012 Radha Handy MA* Started 14-Apr-2012 Active Comments: for hypokalemia Rivaroxaban - Historical Medication 20mg daily ActiveSUDAFED PE MAXIMUM STRENGTH, 10MG (Oral Tablet) - Historical Medication 1 every four hours, as needed Active Comments: Medication taken as needed. TRIAMCINOLONE ACETONIDE, 0.5% (External Cream) 1 Cream apply sparingly to rash on feet and legs for 30 days * Quantity: 45 Refills: 6 Ordered :05-Nov-2011 Rubia Swenson LPN* Started 05-Nov-2011 Active Comments: for stasis dermatitis XARELTO, 20MG (Oral Tablet) 1 Tablet daily for 30 days * Quantity: 30 Refills: 12 Ordered :01-Aug-2013 Hemanth Murray MD, Hemanth SEGOVIA* Started 01-Aug-2013 Active Comments: to prevent strokes XARELTO, 20MG (Oral Tablet) - Historical Medication one daily Active Comments: to prevent strokes with atrial fibrillation ASPIRIN EC, 81MG (Oral Tablet Delayed Release) [address] daily for 30 days * Quantity: 30 Refills: 0 Ordered :28-Jun-2011 Hemanth Murray MD, David MD* Started 28-May-2011 Ended 27-Jun-2011 InactiveBUMETANIDE, 2MG (Oral Tablet) 2 (two) Tablet two times daily for 30 days * Quantity: 120 Refills: 0 Ordered :28-Jun-2011 Hemanth Murray MD, David MD* Started 28-May-2011 Ended 27-Jun-2011 InactiveCUBICIN, 500MG (Intravenous Solution Reconstituted) 1 For Solution daily for 5 days * Quantity: 5 Refills: 0 Ordered :21-Dec-2012 Rubia Swenson LPN* Started 21-Dec-2012 Ended 26-Dec-2012 Inactive Comments: for cellulitis of the right leg DIGOXIN, 0.125MG (Oral Tablet) 1/2 Tablet every other day for 30 days * Quantity: 15 Refills: 12 Ordered :27-Dec-2012 Rubia Swenson LPN* Started 07-Jun-2012 Ended 27-Dec-2012 InactiveDOXYCYCLINE HYCLATE, 100MG (Oral Capsule) 1 (one) Capsule two times daily on an empty stomach for 14 days * Quantity: 28 Refills: 0 Ordered :05-Nov-2011 Mahnaz Pratt * Started 05-Nov-2011 Ended 19-Nov-2011 Inactive Comments: for skin infection DUONEB, 0.5-2.5 (3)MG/3ML (Inhalation Solution) 1 Solution every six hours for 30 days * Quantity: 0 Refills: 0 Ordered :03-Sep-2011 Hemanth Murray MD, David MD* Started 22-Jul-2011 Ended 21-Aug-2011 InactiveGUAIFENESIN, 1200MG (Oral Tablet Extended Release 12 Hour) - Historical Medication 1 two times daily InactiveLABETALOL HCL, 100MG (Oral Tablet) one Tablet two times daily for 30 days * Quantity: 60 Refills: 2 Ordered :19-Jan-2009 Adenike Gutierrez LPN* Started 19-Jan-2009 Ended 16-Jan-2010 Inactive Comments: for hypertension LISINOPRIL, 20MG (Oral Tablet) one Tablet daily for 30 days * Quantity: 30 Refills: 2 Ordered :15-Dec-2008 MattAdenike carpenter MANDA* Started 15-Dec-2008 Ended 16-Jan-2010 Inactive Comments: for hypertension METOPROLOL TARTRATE, 50MG (Oral Tablet) 1 Tablet every eight hours for 30 days * Quantity: 0 Refills: 0 Ordered :28-Jun-2011 Hemanth Murray MD, David MD* Started 28-May-2011 Ended 27-Jun-2011 InactivePOTASSIUM CHLORIDE, 20MEQ (Oral Packet) 2 (two) Tablet(s) every eight hours for 30 days * Quantity: 0 Refills: 0 Ordered :28-Jun-2011 Hemanth Murray MD, David MD* Started 28-May-2011 Ended 27-Jun-2011 InactivePOTASSIUM CHLORIDE, 40 MEQ/15ML(20%) (Oral Liquid) 1 Liquid two times daily for 30 days * Quantity: 0 Refills: 0 Ordered : Hemanth Murray MD, David MD* Started Ended InactiveTOBRAMYCIN SULFATE, 0.3% (Ophthalmic Solution) 2 drops in the left eye Solution four times daily, as needed for 5 days * Quantity: 1 Refills: 0 Ordered :05-Nov-2011 Hemanth Murray MD, David MD* Started 05-Nov-2011 Ended 10-Nov-2011 Inactive Comments: Medication taken as needed. for infection and mattering VITAMIN D, 50,000unit (Oral Capsule) (Free Text) 1 Capsule weekly for 8 weeks for 60 days * Quantity: 8 Refills: 0 Ordered :31-May-2012 Radha Handy MA* Started 31-May-2012 Ended 30-Jul-2012 Inactive Allergies and Adverse Reactions Name Dates Details NKDA (Renamed from Aspirin *ANALGESICS - NonNarcotic*) Status: Active Past Medical History Name Dates Details Surgeries Comments: all 4 wisdom teet h removed in 1983 in [facility]; lap cholecystectomy 197; vasectomy in 1988; open prostatectomy attempt by [facility] in 2005 but due to fear of cutting nerves, they backed off on removing the prostate. Status: Active Procedures Procedure Dates Details FOLLOW UP BY PCP Ordered:08-May-2011 IMMUNIZ ADMNIN, 1 VAC, SNGL/COMBO (87991) Ordered: 9 TDAP VACCINE IM, >7 YEARS ([id number]) Ordered:20-Dec-2008 Immunization Name Dates Details Influenza (3 years and up) Lot #: [id number] Administered on:13-Jan-2012 Comments: Site: Deltoid (L eft); Given at [facility] by Sherri PERRY Influenza (3 years and up) Lot #: [id number] Administered on:28-Dec-2012 Comments: Site: Deltoid ( Right) Tdap (7 years and up) Lot #: [id number] Administered on:20-Dec-2008 Comments: Site: Deltoid ( Left) [...] status Comments: 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 @ [employer] No Drug Use Non Smoker/No Tobacco Use Vital Signs Date Test Result Details 22-Feb-2013 13:30 Temperature 96.8 f Comments: Method: [...] 48.7 kg/m2 Body Surface Area Calculated 2.55 18-Nov-2011 09:36 Temperature 98.4 f Comments: Method: [...] IBIOTIC RX: YES AMOXACILLIN PRELIM MICROBIOLOGY RESULTS Normal Comments: SITERT ARMDAY 1 RESULT[2011 08:45 BS] NO GROWTH @ DAY 1 PRELIM MICROBIOLOGY RESULTS Normal Comments: SITERT ARMDAY 1 RESULT[2011 08:45 BS] NO GROWTH @ DAY 1 PRELIM MICROBIOLOGY RESULTS Normal Comments: SITERT ARMDAY 1 RESULT[2011 08:45 BS] NO GROWTH @ DAY 1 PRELIM MICROBIOLOGY RESULTS Normal Comments: SITERT ARMDAY 1 RESULT[2011 08:45 BS] NO GROWTH @ DAY 1 PRELIM MICROBIOLOGY RESULTS Normal Comments: SITERT ARMDAY 1 RESULT[2011 08:45 BS] NO GROWTH @ DAY 1 PRELIM MICROBIOLOGY RESULTS Normal Comments: SITERT ARMDAY 1 RESULT[2011 08:45 BS] NO GROWTH @ DAY 1 PRELIM MICROBIOLOGY RESULTS Normal Comments: SITERT ARMDAY 1 RESULT[2011 08:45 BS] NO GROWTH @ DAY 1 PRELIM MICROBIOLOGY RESULTS Normal Comments: SITERT ARMDAY 1 RESULT[2011 08:45 BS] NO GROWTH @ DAY 1 PRELIM MICROBIOLOGY RESULTS Normal Comments: SITERT ARMDAY 1 RESULT[2011 08:45 BS] NO GROWTH @ DAY 1 PRELIM MICROBIOLOGY RESULTS Normal Comments: SITERT ARMDAY 1 RESULT[2011 08:45 BS] NO GROWTH @ DAY 1 PRELIM MICROBIOLOGY RESULTS Normal Comments: SITERT ARMDAY 1 RESULT[2011 08:45 BS] NO GROWTH @ DAY 1 PRELIM MICROBIOLOGY RESULTS Normal Comments: SITERT ARMDAY 1 RESULT[2011 08:45 BS] NO GROWTH @ DAY 1 PRELIM MICROBIOLOGY RESULTS Normal Comments: SITERT ARMDAY 1 RESULT[2011 08:45 BS] NO GROWTH @ DAY 1 12:18 CULTURE, BLOOD Comments: ANTIB IOTIC RX: YES PRELIM MICROBIOLOGY RESULTS Normal Comments: SITERT ARMDAY 1 RESULT[2011 08:44 BS] NO GROWTH @ DAY 1 PRELIM MICROBIOLOGY RESULTS Normal Comments: SITERT ARMDAY 1 RESULT[2011 08:44 BS] NO GROWTH @ DAY 1 PRELIM MICROBIOLOGY RESULTS Normal Comments: SITERT ARMDAY 1 RESULT[2011 08:44 BS] NO GROWTH @ DAY 1 PRELIM MICROBIOLOGY RESULTS Normal Comments: SITERT ARMDAY 1 RESULT[2011 08:44 BS] NO GROWTH @ DAY 1 PRELIM MICROBIOLOGY RESULTS Normal Comments: SITERT ARMDAY 1 RESULT[2011 08:44 BS] NO GROWTH @ DAY 1 PRELIM MICROBIOLOGY RESULTS Normal Comments: SITERT ARMDAY 1 RESULT[2011 08:44 BS] NO GROWTH @ DAY 1 PRELIM MICROBIOLOGY RESULTS Normal Comments: SITERT ARMDAY 1 RESULT[2011 08:44 BS] NO GROWTH @ DAY 1 PRELIM MICROBIOLOGY RESULTS Normal Comments: SITERT ARMDAY 1 RESULT[2011 08:44 BS] NO GROWTH @ DAY 1 PRELIM MICROBIOLOGY RESULTS Normal Comments: SITERT ARMDAY 1 RESULT[2011 08:44 BS] NO GROWTH @ DAY 1 PRELIM MICROBIOLOGY RESULTS Normal Comments: SITERT ARMDAY 1 RESULT[2011 08:44 BS] NO GROWTH @ DAY 1 PRELIM MICROBIOLOGY RESULTS Normal Comments: SITERT ARMDAY 1 RESULT[2011 08:44 BS] NO GROWTH @ DAY 1 PRELIM MICROBIOLOGY RESULTS Normal Comments: SITERT ARMDAY 1 RESULT[2011 08:44 BS] NO GROWTH @ DAY 1 PRELIM MICROBIOLOGY RESULTS Normal Comments: SITERT ARMDAY 1 RESULT[2011 08:44 BS] NO GROWTH @ DAY 1 Treatment Plan * THEODORE CULTURE-URINE (66565); Ordered: 07/04/2013 * Chem 8 BMP (35112); Ordered: 12/24/2012; Note: STANDING ORDER * CBC (83491); Ordered: 12/21/2012 * Chem 8 BMP (44410); Ordered: 12/21/2012 * VITAMIN D 25 (CALCIFEROL)(97319); Ordered: 05/31/2012 * CBC (50498); Ordered: 01/09/2012 * URINALYSIS, (36429); Ordered: 01/09/2012 * THEODORE CULTURE-URINE (04729); Ordered: 01/09/2012 * BASIC METABOLIC PANEL,BMP (01776); Ordered: 10/31/2011; Note: STANDING ORDER * PHOSPHORUS (67023); Ordered: 10/31/2011 * MAGNESIUM (20794); Ordered: 10/31/2011 * VANCOMYCIN, TROUGH (78001); Ordered: 10/27/2011; Note: STANDING ORDER-Do as directed by the pharmacist. * Chem 8 BMP (47561); Ordered: 10/27/2011; Note: STANDING ORDER * Chem 8 BMP (29597); Ordered: 09/23/2011 * IRON PROFILE*; Ordered: 05/29/2011 * HGB A1C (01056); Ordered: 05/29/2011 * LIPID PANEL (15504); Ordered: 05/28/2011 * PSA (PROSTATE SPECIFIC ANTIGEN) (60574); Ordered: 05/28/2011 * METABOLIC PANEL, BASIC (71303); Ordered: 05/28/2011 * LIVER FUNCTION PANEL* (05128); Ordered: 05/28/2011 * VITAMIN B-12 (CYANOCOBALAMIN) (10238); Ordered: 05/28/2011 * TSH (THYROID STIMULATING HORMONE) (24302); Ordered: 05/28/2011 * VITAMIN D 25 (CALCIFEROL)(97487); Ordered: 05/28/2011 * MAGNESIUM (12812); Ordered: 05/28/2011 * EKG (57536); Ordered: 05/28/2011 * CBC & PLATELETS (AUTO) (03195); Ordered: 05/28/2011 * LIVER FUNCTION PANEL* (24022); Ordered: 01/16/2010 * CBC (67414); Ordered: 01/16/2010 * LIPID PANEL (05327); Ordered: 01/16/2010 * BASIC METABOLIC PANEL,BMP (95235); Ordered: 01/16/2010 * BASIC METABOLIC PANEL,BMP (02812); Ordered: 01/19/2009 * BASIC METABOLIC PANEL,BMP (25898); Ordered: 12/20/2008 * TSH (THYROID STIMULATING HORMONE) (76343); Ordered: 12/15/2008 * VITAMIN D, 25 (CALCIFEROL) (13726); Ordered: 12/15/2008 * CBC (29692); Ordered: 12/15/2008 * BASIC METABOLIC PANEL,BMP (76414); Ordered: 12/15/2008 * LIVER FUNCTION PANEL* (54266); Ordered: 12/15/2008 * LIPID PANEL (06746); Ordered: 12/15/2008 Advance Directives No Advance Directives available. Encounters Annotation/Addendum - Unspecified Diagno [facility] On 04-Jul-2013 09:55 Office Visit - Obstructive sleep apnea, Chronic atrial fibrillation (Renamed from Atrial fibrillation, chronic) (427.31 | I48.2), Hypertension, benign, Edema (782.3 | R60.9) Encounter Reason: [facility] On 22-Feb-2013 13:29 Office Visit - Edema, Obstructive sleep apnea, Hypertension, benign, Chronic atrial fibrillation [facility]25 Office Visit - Edema, Obstructive sleep apnea, Hypertension, benign, Renal insufficiency [facility] 12[facility] 13:24 Office Visit - Edema, Heart failure, rig ht, Obstructive sleep apnea [facility] 29-Dec-2012 13:26 Office Visit - Cellulitis and abscess of leg, Heart failure, right, Edema [facility] 24[facility]2012 13:42 Office Visit - Cellulitis and abscess of leg, Heart failure, right, Edema Encounter Reason: Cellulitis - The last clinic visit was 1 week(s) ago. Symptoms include swelling, tenderness and drainage. Symptoms are located on the right leg. The symptoms occur constantly. The patient describes this as worsening. [facility] On 21-Dec-2012 13:38 Medication Note - ANXIETY AND DEPRESSION [facility] On 07-Dec-2012 11:57 Medication Note - Delusional disorder [facility] On 25-Nov-2012 13:07 Office Visit - Chronic atrial fibrillati on, Obstructive sleep apnea, Delusional disorder [facility] On 10:19 Office Visit - Hypertension, benign, Chr onic atrial fibrillation, Obstructive sleep apnea, Delusional disorder Encounter Reason: Medication Review/Refill - Note for "Medication Review/Refill": [facility] 10:37 Medication Note - Hypertension, benign [facility] On 29-Jun-2012 13:53 Annotation/Addendum - Vitamin B 12 defic iency [facility] On 22-Jun-2012 17:11 Annotation/Addendum - Heart failure, rig ht [facility] On 07-Jun-2012 11:12 Annotation/Addendum - Vitamin D deficien cy [facility] On 31-May-2012 16:31 Annotation/Addendum - Hypokalemia [facility] On 16-Mar-2012 08:49 Medication Note - Chronic atrial fibrill ation [facility] On 30-Jan-2012 09:29 Annotation/Addendum [facility] On 19-Jan-2012 10:00 Annotation/Addendum - Hematuria [facility] On 09-Jan-2012 13:02 Annotation/Addendum - Edema [facility] On 25-Nov-2011 10:08 Office Visit - Fibrillation, atrial, Troy ma, Obstructive sleep apnea, Hypertension, benign, Type II diabetes mellitus [facility] On 18-Nov-2011 09:35 Office Visit - Edema, Cellulitis and abs cess of leg, Obstructive sleep apnea, Fibrillation, atrial, Stasis dermatitis, Conjunctivitis NOS [facility] On 05-Nov-2011 09:41 Office Visit - Cellulitis and abscess of leg, Chronic kidney disease, stage III (585.3), Edema, Obstructive sleep apnea, Hypertension, benign, Fibrillation, atrial, Encounter for long-term use of other medications (V58.69) [facility] On 10:35 Office Visit - Edema, Cellulitis and abs cess of leg, Stasis dermatitis, Chronic kidney disease, stage III (585.3), Encounter for long-term use of other medications (V58.69), Noninfectious lymphedema Encounter Reason: Ankle Swelling - Patient has had swelling in bilateral feet and ankles with rednessand abdomen has some [facility] 10[facility]18 Annotation/Addendum - Chronic kidney dis ease, stage III (585.3) [facility] On 09:38 Annotation/Addendum - Renal failure , ac cheesh-na on chronic (584.9) [facility] On 10:57 Office Visit - Fibrillation, atrial, Typ e II diabetes mellitus, Obstructive sleep apnea, Hypertension, benign [facility] On 09:52 Annotation/Addendum [facility] On 10:43 Office Visit - Type II diabetes mellitus , Fibrillation, atrial, Hypertension, benign, Obstructive sleep apnea [facility] On 10:34 Medication Note - Unspecified Diagnosis [facility] On 22-Jul-2011 08:19 Annotation/Addendum - Type II diabetes m janell, Iron deficiency anemia [facility] On 29-May-2011 11:55 Office Visit - Fibrillation, atrial [facility] On 28-May-2011 11:17 Office Visit - Hypertension, benign, Danelle maliha pulmonary hypertension, Obstructive sleep apnea, Edema, Fibrillation, atrial, Encounter for long-term use of other medications (V58.69), Magnesium deficiency, Osteomalacia, Malaise and fatigue, Benign prostatic hypertrophy with urinary retention, CA of prostate, Hypercholesterolemia [facility] On 28-May-2011 11:01 Annotation/Addendum [facility] On 20-May-2011 09:13 Office Visit-Pre Admission - Edema, Hype rtension, benign, Shortness of breath, Primary pulmonary hypertension, Obstructive sleep apnea, Heart failure, right Encounter Reason: Shortness of Breath - Symptoms include exercise intolerance, fatigue and cough (in the am some times). Onset was sudden 3 week(s) ago. The patient describes this as mild. Associated symptoms include leg pain and edema. [facility] On 16-May-2011 10:42 Office Visit - Acute sinusitis, Obesity, morbid, Contact dermatitis and eczema, due to cause, Urinary incontinence Encounter Reason: Shortness of Breath - Symptoms [...] and talking. Symptoms are relieved by [facility] 08-May-2011 08:38 Office Visit - Hypertension, benign, Hyp ercholesterolemia, Encounter for long- term use of other medications (V58.69), Urinary incontinence, Obstructive sleep apnea, Primary pulmonary hypertension Encounter Reason: Urinary incontinence - The onset of the urinary incontinence has been sudden and has been occurring in an intermittent pattern for 4 days. The course has been constant. The urinary incontinence occurs both day and night. The symptoms coughing ,sneezing ,straining and lifting heavy objects. The urge to urinate is present but patient cannot control the flow of urine. [facility] On 16-Jan-2010 14:29 Office Visit - Edema, Hypertension, sandoval gn, Obstructive sleep apnea, Primary pulmonary hypertension, Asthma [facility] On 19-Jan-2009 09:37 Office Visit - Need for prophylactic vac cination and inoculation against combinations of disease, Edema, Hypertension, benign, Obstructive sleep apnea, Primary pulmonary hypertension, Asthma [facility] On 20-Dec-2008 13:48 Office Visit - Obstructive sleep apnea, Primary pulmonary hypertension, Edema, Malaise and fatigue, Hypertension, benign, Hypercholesterolemia, Encounter for long-term use of other medications (V58.69), Urinary incontinence [facility] On 15-Dec-2008 10:50
--- OUTSIDE RECORDS SUMMARY | 2019-09-03 18:44 | XMS REPORT | Continuity of Care Document ---
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 Name Role Phone Younger Hemanth SEGOVIA PP [...] Refills: 12 Ordered :21-Jun-2013 Hemanth Murray MD, Hemanth SEGOVIA* Started 21-Jun-2013 Active Comments: for hypercholesterolemia CPAP [...] - Historical Medication 250mcg daily ActiveDILTIAZEM HCL ER, 180MG (Oral Capsule Extended Release 24 Hour) 1 Capsule ER 24HR 380mg daily for 30 days * Quantity: 30 Refills: 6 Ordered :09-Aug-2013 Hemanth Murray MD, Hemanth SEGOVIA* Started 09-Aug-2013 Active Comments: 08/09/13 Change to 360mg ER daily-[facility] ESCITALOPRAM OXALATE, 20MG (Oral Tablet) 1 Tablet [...] Refills: 12 Ordered :09-Feb-2013 Hemanth Murray MD, Hemanth SEGOVIA* Started 09-Feb-2013 Active Comments: for edema LISINOPRIL, 5MG (Oral Tablet) 1 Tablet daily for 0 days * Quantity: 30 Refills: 6 Ordered :20-Jul-2013 Hemanth Murray MD, David MD* Started 20-Jul-2013 ActiveMETOPROLOL SUCCINATE ER, 25MG (Oral Tablet Extended Release 24 Hour) 1 Tablet ER 24HR two times daily for 30 days * Quantity: 0 Refills: 12 Ordered :24-Dec-2012 Hemanth Murary MD, David MD* Started 24-Dec-2012 ActiveMIRALAX (Oral Packet) - Historical Medication as needed Active Comments: Medication taken as needed. MIRTAZAPINE, 15MG (Oral Tablet) 1 Tablet daily for 30 days * Quantity: 30 Refills: 6 Ordered :18-Jul-2013 Hemanth Murray MD, David MD* Started 18-Jul-2013 ActiveOXYBUTYNIN CHLORIDE, 5MG (Oral Tablet) [...] Refills: 12 Ordered :01-Aug-2013 Hemanth Murray MD, David MD* Started 01-Aug-2013 Active Comments: to prevent [...] Swenson LPN* Started 07-Jun-2012 Ended 27-Dec-2012 InactiveDILTIAZEM HCL, 90MG (Oral Tablet) 1 Tablet every eight hours for 30 days * Quantity: 30 Refills: 4 Ordered :01-Aug-2013 Ethel Orozco CMA* Started 15-Jul-2013 Ended 01-Aug-2013 Inactive Comments: [...] wisdom teet h removed in 1983 in [facility]; lap cholecystectomy 197; vasectomy in 1988; open prostatectomy attempt by [facility] in 2005 but due to fear of cutting nerves, they backed off on removing the prostate. 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 @ [employer] No Drug Use Non Smoker/No Tobacco [...] DAY 1 PRELIM MICROBIOLOGY RESULTS Normal Comments: SITE 1 RESULT[2011 08:45 BS] NO GROWTH @ DAY 1 PRELIM MICROBIOLOGY RESULTS Normal Comments: ARM 1 RESULT[2011 08:45 BS] NO GROWTH @ DAY 1 PRELIM MICROBIOLOGY RESULTS Normal Comments: 1 RESULT[2011 08:45 BS] NO GROWTH @ DAY 1 PRELIM MICROBIOLOGY RESULTS Normal Comments: SITE ARMDAY 1 RESULT[2011 08:45 BS] NO GROWTH @ DAY 1 PRELIM MICROBIOLOGY RESULTS Normal Comments: SITE ARMDAY 1 RESULT[2011 08:45 BS] NO GROWTH @ DAY 1 PRELIM MICROBIOLOGY RESULTS Normal Comments: SITE ARM 1 RESULT[2011 08:45 BS] NO GROWTH @ DAY 1 PRELIM MICROBIOLOGY RESULTS Normal Comments: SITE ARMDAY 1 RESULT[2011 08:45 BS] NO GROWTH [...] DAY 1 Treatment Plan * THEODORE CULTURE-URINE (28796); Ordered: 07/04/2013 * Chem 8 BMP (06949); Ordered: 12/24/2012; Note: STANDING ORDER * CBC (88934); Ordered: 12/21/2012 * Chem 8 BMP (04569); Ordered: 12/21/2012 * VITAMIN D 25 (CALCIFEROL)(22576); Ordered: 05/31/2012 * CBC (71710); Ordered: 01/09/2012 * URINALYSIS, (60105); Ordered: 01/09/2012 * THEODORE CULTURE-URINE (13509); Ordered: 01/09/2012 * BASIC METABOLIC PANEL,BMP (94198); Ordered: 10/31/2011; Note: STANDING ORDER * PHOSPHORUS (89231); Ordered: 10/31/2011 * MAGNESIUM (10359); Ordered: 10/31/2011 * VANCOMYCIN, TROUGH (42958); Ordered: 10/27/2011; Note: STANDING ORDER-Do as directed by the pharmacist. * Chem 8 BMP (43140); Ordered: 10/27/2011; Note: STANDING ORDER * Chem 8 BMP (62309); Ordered: 09/23/2011 * IRON PROFILE*; Ordered: 05/29/2011 * HGB A1C (39970); Ordered: 05/29/2011 * LIPID PANEL (46972); Ordered: 05/28/2011 * PSA (PROSTATE SPECIFIC ANTIGEN) (71234); Ordered: 05/28/2011 * METABOLIC PANEL, BASIC (22313); Ordered: 05/28/2011 * LIVER FUNCTION PANEL* (27858); Ordered: 05/28/2011 * VITAMIN B-12 (CYANOCOBALAMIN) (61326); Ordered: 05/28/2011 * TSH (THYROID STIMULATING HORMONE) (83069); Ordered: 05/28/2011 * VITAMIN D 25 (CALCIFEROL)(85751); Ordered: 05/28/2011 * MAGNESIUM (14162); Ordered: 05/28/2011 * EKG (28551); Ordered: 05/28/2011 * CBC & PLATELETS (AUTO) (90455); Ordered: 05/28/2011 * LIVER FUNCTION PANEL* (18143); Ordered: 01/16/2010 * CBC (52000); Ordered: 01/16/2010 * LIPID PANEL (11603); Ordered: 01/16/2010 * BASIC METABOLIC PANEL,BMP (09633); Ordered: 01/16/2010 * BASIC METABOLIC PANEL,BMP (84403); Ordered: 01/19/2009 * BASIC METABOLIC PANEL,BMP (52211); Ordered: 12/20/2008 * TSH (THYROID STIMULATING HORMONE) (28921); Ordered: 12/15/2008 * VITAMIN D, 25 (CALCIFEROL) (31364); Ordered: 12/15/2008 * CBC (17225); Ordered: 12/15/2008 * BASIC METABOLIC PANEL,BMP (15925); Ordered: 12/15/2008 * LIVER FUNCTION PANEL* (15856); Ordered: 12/15/2008 * LIPID PANEL (74674); Ordered: 12/15/2008 Advance Directives No Advance Directives available. Encounters Review [facility] On 09-Aug-2013 11:54 Annotation/Addendum - Unspecified Diagno sis [facility] On 04-Jul-2013 09:55 Office Visit - Obstructive sleep apnea, Chronic atrial fibrillation (Renamed from Atrial fibrillation, chronic) (427.31 | I48.2), Hypertension, benign, Edema (782.3 | R60.9) [facility] 22-Feb[facility]2013 13:29 Office Visit - Edema, Obstructive sleep apnea, Hypertension, benign, Chronic atrial fibrillation Encounter Reason: [facility] results[facility] 25-Jan-2013 13:25 Office Visit - Edema, Obstructive sleep apnea, Hypertension, benign, Renal insufficiency Encounter Reason: [facility] 12-Jan-2013 13:24 Office Visit - Edema, Heart failure, rig ht, Obstructive sleep apnea Encounter Reason: [facility] 29-Dec-2012 13:26 Office Visit - Cellulitis and abscess of leg, Heart failure, right, Edema Encounter Reason: [facility] 24-Dec-2012 13:42 Office Visit - Cellulitis and abscess of leg, Heart failure, right, Edema Encounter Reason: Cellulitis - The last clinic visit was 1 week(s) ago. Symptoms include swelling, tenderness and drainage. Symptoms are located on the right leg. The symptoms occur constantly. The patient describes this as worsening. [facility] On 21-Dec-2012 13:38 Medication Note - ANXIETY AND DEPRESSION [facility] On 07-Dec-2012 11:57 Medication Note - Delusional disorder [facility] On 25-Nov-2012 13:07 Office Visit - Chronic atrial fibrillati on, Obstructive sleep apnea, Delusional disorder [facility] On 10:19 Office Visit - Hypertension, benign, Chr onic atrial fibrillation, Obstructive sleep apnea, Delusional disorder Encounter Reason: Medication Review/Refill - Note for "Medication Review/Refill": Suzan dose reductionVidant Pungo [facility] On 10:37 Medication Note - Hypertension, benign [facility] On 29-Jun-2012 13:53 Annotation/Addendum - Vitamin B 12 defic iency [facility] On 22-Jun-2012 17:11 Annotation/Addendum - Heart failure, rig ht [facility] On 07-Jun-2012 11:12 Annotation/Addendum - Vitamin D deficien cy [facility] On 31-May-2012 16:31 Annotation/Addendum - Hypokalemia [facility] On 16-Mar-2012 08:49 Medication Note - Chronic atrial fibrill ation [facility] On 30-Jan-2012 09:29 Annotation/Addendum [facility] On 19-Jan-2012 10:00 Annotation/Addendum - Hematuria [facility] On 09-Jan-2012 13:02 Annotation/Addendum - Edema [facility] On 25-Nov-2011 10:08 Office Visit - Fibrillation, atrial, Troy ma, Obstructive sleep apnea, Hypertension, benign, Type II diabetes mellitus [facility] On 18-Nov-2011 09:35 Office Visit - Edema, Cellulitis and abs cess of leg, Obstructive sleep apnea, Fibrillation, atrial, Stasis dermatitis, Conjunctivitis NOS [facility] On 05-Nov-2011 09:41 Office Visit - Cellulitis and abscess of leg, Chronic kidney disease, stage III (585.3), Edema, Obstructive sleep apnea, Hypertension, benign, Fibrillation, atrial, Encounter for long-term use of other medications (V58.69) [facility] On 10:35 Office Visit - Edema, Cellulitis and abs cess of leg, Stasis dermatitis, Chronic kidney disease, stage III (585.3), Encounter for long-term use of other medications (V58.69), Noninfectious lymphedema Encounter Reason: Ankle Swelling - Patient has had swelling in bilateral feet and ankles with rednessand abdomen has some redness to it [facility]18 Annotation/Addendum - Chronic kidney dis ease, stage III (585.3) [facility] On 09:38 Annotation/Addendum - Renal failure , ac [place] on chronic (584.9) [facility] On 10:57 Office Visit - Fibrillation, atrial, Typ e II diabetes mellitus, Obstructive sleep apnea, Hypertension, benign [facility] On 09:52 Annotation/Addendum [facility] On 10:43 Office Visit - Type II diabetes mellitus , Fibrillation, atrial, Hypertension, benign, Obstructive sleep apnea [facility] On 10:34 Medication Note - Unspecified Diagnosis [facility] On 22-Jul-2011 08:19 Annotation/Addendum - Type II diabetes keri maciel, Iron deficiency anemia [facility] On 29-May-2011 11:55 Office Visit - Fibrillation, atrial [facility] On 28-May-2011 11:17 Office Visit - Hypertension, benign, Danelle maliha pulmonary hypertension, Obstructive sleep apnea, Edema, Fibrillation, atrial, Encounter for long-term use of other medications (V58.69), Magnesium deficiency, Osteomalacia, Malaise and fatigue, Benign prostatic hypertrophy with urinary retention, CA of prostate, Hypercholesterolemia [facility] On 28-May-2011 11:01 Annotation/Addendum [facility] On 20-May-2011 09:13 Office Visit-Pre Admission - Edema, Hype rtension, benign, Shortness of breath, Primary pulmonary hypertension, Obstructive sleep apnea, Heart failure, right Encounter Reason: Shortness of Breath - Symptoms include exercise intolerance, fatigue and cough (in the am some times). Onset was sudden 3 week(s) ago. The patient describes this as mild. Associated symptoms include leg pain and edema. [facility] On 16-May-2011 10:42 Office Visit - [...] and talking. Symptoms are relieved by sitting up.[facility] On 08-May-2011 08:38 Office Visit - [...] patient cannot control the flow of urine. [facility] On 16-Jan-2010 14:29 Office Visit - Edema, Hypertension, sandoval gn, Obstructive sleep apnea, Primary pulmonary hypertension, Asthma [facility] On 19-Jan-2009 09:37 Office Visit - Need for prophylactic vac cination and inoculation against combinations of disease, Edema, Hypertension, benign, Obstructive sleep apnea, Primary pulmonary hypertension, Asthma [facility] On 20-Dec-2008 13:48 Office Visit - Obstructive sleep apnea, Primary pulmonary hypertension, Edema, Malaise and fatigue, Hypertension, benign, Hypercholesterolemia, Encounter for long-term use of other medications (V58.69), Urinary incontinence [facility] On 15-Dec-2008 10:50
--- OUTSIDE RECORDS SUMMARY | 2019-09-03 18:45 | XMS REPORT | Continuity of Care Document ---
Author Author 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 Name Role Phone Younger Hemanth SEGOVIA [...] Hemanth Murray MD, David MD* Started 22-Jun-2012 ActiveDigoxin - Historical Medication 250mcg daily ActiveDILTIAZEM HCL ER, 180MG (Oral Capsule Extended Release 24 Hour) 1 Capsule ER 24HR 380mg daily for 30 days * Quantity: 30 Refills: 6 Ordered :09-Aug-2013 Hemanth Murray MD, Hemanth SEGOVIA* Started 09-Aug-2013 Active Comments: 08/09/13 Change to 360mg ER daily-[facility] ESCITALOPRAM OXALATE, 20MG (Oral Tablet) 1 Tablet [...] MD* Started 09-Feb-2013 Active Comments: for edema LEXAPRO, 20MG (Oral Tablet) - Historical Medication ActiveLISINOPRIL, 5MG (Oral Tablet) 1 Tablet daily [...] Comments: for cellulitis of the right leg DETROL LA, 4MG (Oral Capsule Extended Release 24 Hour) one Capsule ER 24HR daily for 30 days * Quantity: 30 Refills: 4 Ordered :11-Aug-2013 Rubia Swenson LPN* Started 16-Jan-2010 Ended 11-Aug-2013 Inactive Comments: for urinary incontinence (OK to use generic) DIGOXIN, 0.125MG (Oral Tablet) 1/2 Tablet every [...] wisdom teet h removed in 1983 in [facility]; lap cholecystectomy 197; vasectomy in 1988; open prostatectomy attempt by [place] in 2005 but due to fear of cutting nerves, they backed off on removing the prostate. Status: Active Procedures Procedure Dates Details FOLLOW UP BY PCP Ordered:08-May-2011 IMMUNIZ ADMNIN, 1 VAC, SNGL/COMBO (01462) Ordered: 9 TDAP VACCINE IM, >7 YEARS (36315) Ordered:20-Dec-2008 Immunization Name Dates Details Influenza (3 years and up) Lot #: [id number] Administered on:13-Jan-2012 Comments: Site: Deltoid (L eft); Given at [facility] by Sherri PERRY Influenza (3 years and up) Lot #: [id number] Administered on:28-Dec-2012 Comments: Site: Deltoid ( Right) Tdap (7 years and up) Lot #: [id number] Administered on:20-Dec-2008 Comments: Site: Deltoid ( Left) [...] status Comments: 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 @ [employer] No Drug Use Non Smoker/No Tobacco Use Vital Signs Date Test Result Details 11-Aug-2013 10:57 Temperature 98.6 f Comments: Method: [...] 49.69 kg/m2 Body Surface Area Calculated 2.58 22-Feb-2013 13:30 Temperature 96.8 f Comments: Method: [...] DAY 1 Treatment Plan * THEODORE CULTURE-URINE (53324); Ordered: 07/04/2013 * Chem 8 BMP (47512); Ordered: 12/24/2012; Note: STANDING ORDER * CBC (63896); Ordered: 12/21/2012 * Chem 8 BMP (56290); Ordered: 12/21/2012 * VITAMIN D 25 (CALCIFEROL)(51174); Ordered: 05/31/2012 * CBC (50857); Ordered: 01/09/2012 * URINALYSIS, (24519); Ordered: 01/09/2012 * THEODORE CULTURE-URINE (92750); Ordered: 01/09/2012 * BASIC METABOLIC PANEL,BMP (16030); Ordered: 10/31/2011; Note: STANDING ORDER * PHOSPHORUS (60971); Ordered: 10/31/2011 * MAGNESIUM (90337); Ordered: 10/31/2011 * VANCOMYCIN, TROUGH (69066); Ordered: 10/27/2011; Note: STANDING ORDER-Do as directed by the pharmacist. * Chem 8 BMP (69864); Ordered: 10/27/2011; Note: STANDING ORDER * Chem 8 BMP (39359); Ordered: 09/23/2011 * IRON PROFILE*; Ordered: 05/29/2011 * HGB A1C (07462); Ordered: 05/29/2011 * LIPID PANEL (98578); Ordered: 05/28/2011 * PSA (PROSTATE SPECIFIC ANTIGEN) (45920); Ordered: 05/28/2011 * METABOLIC PANEL, BASIC (02313); Ordered: 05/28/2011 * LIVER FUNCTION PANEL* (25024); Ordered: 05/28/2011 * VITAMIN B-12 (CYANOCOBALAMIN) (77830); Ordered: 05/28/2011 * TSH (THYROID STIMULATING HORMONE) (27981); Ordered: 05/28/2011 * VITAMIN D 25 (CALCIFEROL)(16814); Ordered: 05/28/2011 * MAGNESIUM (96281); Ordered: 05/28/2011 * EKG (72224); Ordered: 05/28/2011 * CBC & PLATELETS (AUTO) (81057); Ordered: 05/28/2011 * LIVER FUNCTION PANEL* (29970); Ordered: 01/16/2010 * CBC (26294); Ordered: 01/16/2010 * LIPID PANEL (13524); Ordered: 01/16/2010 * BASIC METABOLIC PANEL,BMP (79444); Ordered: 01/16/2010 * BASIC METABOLIC PANEL,BMP (78981); Ordered: 01/19/2009 * BASIC METABOLIC PANEL,BMP (43737); Ordered: 12/20/2008 * TSH (THYROID STIMULATING HORMONE) (92371); Ordered: 12/15/2008 * VITAMIN D, 25 (CALCIFEROL) (66044); Ordered: 12/15/2008 * CBC (72665); Ordered: 12/15/2008 * BASIC METABOLIC PANEL,BMP (96311); Ordered: 12/15/2008 * LIVER FUNCTION PANEL* (18887); Ordered: 12/15/2008 * LIPID PANEL (85084); Ordered: 12/15/2008 Advance Directives No Advance Directives available. Encounters Review Encounter Reason: General - Male - The patient feels well with no complaints. Nutrition: balanced diet. Patient does not exercise. Patient sleeps 8 hours per night. Note for "General - Male": Pt lives at [facility] On 11-Aug-2013 10:[address] [facility] On 11-Aug-2013 09:20 Annotation/Addendum - Unspecified Diagno sis [facility] On 04-Jul-2013 09:55 Office Visit - Obstructive sleep apnea, Chronic atrial fibrillation (Renamed from Atrial fibrillation, chronic) (427.31 | I48.2), Hypertension, benign, Edema (782.3 | R60.9) [facility] 22-Feb-2013 13:29 Office Visit - Edema, Obstructive sleep apnea, Hypertension, benign, Chronic atrial fibrillation Encounter Reason: [facility] 25-Jan-2013 13:25 Office Visit - Edema, Obstructive sleep apnea, Hypertension, benign, Renal insufficiency Encounter Reason[facility] 12-Jan-2013 13:24 Office Visit - Edema, Heart failure, rig ht, Obstructive sleep apnea Encounter Reason[facility] 29-Dec-2012 13:26 Office Visit - Cellulitis and abscess of leg, Heart failure, right, Edema Encounter Reason[facility] 24-Dec-2012 13:42 Office Visit - Cellulitis and abscess of leg, Heart failure, right, Edema Encounter Reason: Cellulitis - The last clinic visit was 1 week(s) ago. Symptoms include swelling, tenderness and drainage. Symptoms are located on the right leg. The symptoms occur constantly. The patient describes this as worsening. [facility] On 21-Dec-2012 13:38 Medication Note - ANXIETY AND DEPRESSION [facility] On 07-Dec-2012 11:57 Medication Note - Delusional disorder [facility] On 25-Nov-2012 13:07 Office Visit - Chronic atrial fibrillati on, Obstructive sleep apnea, Delusional disorder [facility] On 10:19 Office Visit - Hypertension, benign, Chr onic atrial fibrillation, Obstructive sleep apnea, Delusional disorder Encounter Reason: Medication Review/Refill - Note for "Medication Review/Refill": Suzan dose [facility]Go[facility] 10:37 Medication Note - Hypertension, benign [facility] On 29-Jun-2012 13:53 Annotation/Addendum - Vitamin B [address] [facility] On 22-Jun-2012 17:11 Annotation/Addendum - Heart failure, rig ht [facility] On 07-Jun-2012 11:12 Annotation/Addendum - Vitamin D deficien cy [facility] On 31-May-2012 16:31 Annotation/Addendum - Hypokalemia [facility] On 16-Mar-2012 08:49 Medication Note - Chronic atrial fibrill ation [facility] On 30-Jan-2012 09:29 Annotation/Addendum [facility] On 19-Jan-2012 10:00 Annotation/Addendum - Hematuria [facility] On 09-Jan-2012 13:02 Annotation/Addendum - Edema [facility] On 25-Nov-2011 10:08 Office Visit - Fibrillation, atrial, [place] ma, Obstructive sleep apnea, Hypertension, benign, Type II diabetes mellitus [facility] On 18-Nov-2011 09:35 Office Visit - Edema, Cellulitis and abs cess of leg, Obstructive sleep apnea, Fibrillation, atrial, Stasis dermatitis, Conjunctivitis NOS [facility] On 05-Nov-2011 09:41 Office Visit - Cellulitis and abscess of leg, Chronic kidney disease, stage III (585.3), Edema, Obstructive sleep apnea, Hypertension, benign, Fibrillation, atrial, Encounter for long-term use of other medications (V58.69) [facility] On 10:35 Office Visit - Edema, Cellulitis and abs cess of leg, Stasis dermatitis, Chronic kidney disease, stage III (585.3), Encounter for long-term use of other medications (V58.69), Noninfectious lymphedema Encounter Reason: Ankle Swelling - Patient has had swelling in bilateral feet and ankles with rednessand abdomen has some redness to it [facility]Go[facility] On 10:18 Annotation/Addendum - Chronic kidney dis ease, stage III (585.3) [facility] On 09:38 Annotation/Addendum - Renal failure , ac [place] on chronic (584.9) [facility] On 10:57 Office Visit - Fibrillation, atrial, Typ e II diabetes mellitus, Obstructive sleep apnea, Hypertension, benign [facility] On 09:52 Annotation/Addendum [facility] On 10:43 Office Visit - Type II diabetes mellitus , Fibrillation, atrial, Hypertension, benign, Obstructive sleep apnea [facility] On 10:34 Medication Note - Unspecified Diagnosis [facility] On 22-Jul-2011 08:19 Annotation/Addendum - Type II diabetes m ellitus, Iron deficiency anemia [facility] On 29-May-2011 11:55 Office Visit - Fibrillation, atrial [facility] On 28-May-2011 11:17 Office Visit - Hypertension, benign, Danelle maliha pulmonary hypertension, Obstructive sleep apnea, Edema, Fibrillation, atrial, Encounter for long-term use of other medications (V58.69), Magnesium deficiency, Osteomalacia, Malaise and fatigue, Benign prostatic hypertrophy with urinary retention, CA of prostate, Hypercholesterolemia [facility] On 28-May-2011 11:01 Annotation/Addendum [facility] On 20-May-2011 09:13 Office Visit-Pre Admission - Edema, Hype rtension, benign, Shortness of breath, Primary pulmonary hypertension, Obstructive sleep apnea, Heart failure, right Encounter Reason: Shortness of Breath - Symptoms include exercise intolerance, fatigue and cough (in the am some times). Onset was sudden 3 week(s) ago. The patient describes this as mild. Associated symptoms include leg pain and edema. [facility] On 16-May-2011 10:42 Office Visit - [...] and talking. Symptoms are relieved by sitting up.[facility] On 08-May-2011 08:38 Office Visit - [...] patient cannot control the flow of urine. [facility] On 16-Jan-2010 14:29 Office Visit - Edema, Hypertension, sandoval gn, Obstructive sleep apnea, Primary pulmonary hypertension, Asthma [facility] On 19-Jan-2009 09:37 Office Visit - Need for prophylactic vac cination and inoculation against combinations of disease, Edema, Hypertension, benign, Obstructive sleep apnea, Primary pulmonary hypertension, Asthma [facility] On 20-Dec-2008 13:48 Office Visit - Obstructive sleep apnea, Primary pulmonary hypertension, Edema, Malaise and fatigue, Hypertension, benign, Hypercholesterolemia, Encounter for long-term use of other medications (V58.69), Urinary incontinence [facility] On 15-Dec-2008 10:50
--- OUTSIDE RECORDS SUMMARY | 2019-09-03 18:45 | XMS REPORT | Continuity of Care Document ---
Author Author [facility] Address [address] [place] [address] Phone Care Team Providers [employer] Technical Director Name Role Phone Homar Clifton PP Katlin Berger Unavailable Abdullahi PERRY, Tuyet Unavailable Unavailable Ashley Kelsey Unavailable David Malcolm Unavailable Unavailable Rubia Swenson LPN Unavailable Errol MATUTE, Nneka Unavailable Unavailable Unavailable Problems Name [...] for 30 days * Refills: 12 Ordered: Hemanth Meza MD* Start 22-Jun-2012 Active DETROL LA, [...] Active Comments: 08/09/13 Called to Jay at [facility] ESCITALOPRAM OXALATE, 20MG (Oral Tablet) 1 [...] LEXAPRO, 20MG (Oral Tablet) (20 MG) Active LISINOPRIL, 5MG (Oral Tablet) 1 Tablet daily for 0 days * Quantity: 30 {Tablet} Refills: 6 Ordered:20-Jul-2013 Hemanth Meza MD* Start 20-Jul-2013 Active METOPROLOL SUCCINATE ER, 25MG (Oral Tablet Extended Release 24 Hour) 1 Tablet ER 24HR two times daily for 30 days * Quantity: 60 {Tablet} Refills: 4 Ordered: Hemanth Meza MD* Start Active Comments: for hypertension MIRTAZAPINE, 15MG (Oral Tablet) 1 Tablet daily for 30 days * Quantity: 30 {Tablet} Refills: 6 Ordered:18-Jul-2013 Hemanth Meza MD* Start 18-Jul-2013 Active NYSTATIN, 067680TDQF/GM (External Powder) 1 (one) application application two times daily until clear for 0 days * Quantity: 1 {Applicator} Refills: 0 Ordered: Homar Clifton Kali * Start 15-Jan-2015 Active Comments: Called to Avinash myers [facility]--she will order from [facility].--01/15/15 Khushi OXYBUTYNIN CHLORIDE, 5MG (Oral Tablet) 1 [...] Start 05-Nov-2011 Active Comments: for stasis dermatitis XARELTO, 20MG (Oral Tablet) 1 Tablet daily for 30 days * Quantity: 30 {Tablet} Refills: 12 Ordered:01-Aug-2013 Hemanth Meza MD* Start 01-Aug-2013 Active Comments: to prevent strokes Acetylcysteine 500mg daily Inactive ASPIRIN EC, 81MG [...] Change to 360mg ER daily[facility] DILTIAZEM HCL, 90MG (Oral Tablet) 1 [...] Flonase 50 MCG/ACT Nasal Suspension 2 (two) [place] daily for 10 days * Quantity: 1 {Bottle} Refills: 0 Ordered: Ashley Larry* Start End Inactive Flonase Allergy Relief 50 MCG/ACT Nasal Suspension 2 (two) [place] daily for 30 days * Quantity: 1 [...] R35.0) Status: Inactive Procedures Procedure Dates Details Follow up if no improvement or if symptoms worsen Ordered:September-2016 MRI BRAIN W/O CONTRAST (53318) Ordered:05-Feb-2016 IMMUNIZ ADMN, EA AD VAC SNGL/COMBO (27590) Ordered:31-Jan-20 16 PREVNAR 13 (96049) Completed: 6 Flu (Influenza) *: flu shot Ordered:31-Jan-2016 IMMUNIZ ADMNIN, 1 VAC, SNGL/COMBO (02905) Completed:31-Jan-2016 INTRAMUSCULAR ADMINISTRATION OF HIGH DOS E SPLIT VIRUS PRESERVATIVE FREE INFLUENZA VACCINE (11015) Completed:31-Jan-2016 MRI BRAIN W/O CONTRAST (36651) Ordered:10-Jan-2016 Flu (Influenza) *: flu shot Ordered:16-Jan-2015 IMMUNIZ ADMNIN, 1 VAC, SNGL/COMBO (65452) Completed:16-Jan-2015 INTRAMUSCULAR ADMINISTRATION OF HIGH DOS E SPLIT VIRUS PRESERVATIVE FREE INFLUENZA VACCINE (79306) Completed:16-Jan-2015 Follow up in 2 months Ordered:01-Feb-2014 IMMUNIZATION ADMIN (12086) Completed:Jan-2014 PNEUMOCOCCAL VACCINE (30830) Completed:2 11-Jan-2014 Flu (Influenza) *: flu shot Ordered:31-Jan-2014 IMMUNIZATION ADMIN (30756) Completed:Jan-2014 FLU VACCINE NO PRSV QUADRAVALENT 3 YRS+ (68280) Completed:31-Jan-2014 FOLLOW UP BY PCP Ordered:2-Feb-2012 IMMUNIZ ADMNIN, 1 VAC, SNGL/COMBO (92784) Ordered: 9 TDAP VACCINE IM, >7 YEARS (97775) Ordered:20-Dec-2008 Gallbladder Surgery - Laparoscopic Surgeries Comments: all 4 wis dom teeth removed in 1983 in [facility]; lap cholecystectomy 197; vasectomy in 1988; open prostatectomy attempt by [facility] in 2005 but due to fear of cutting nerves, they backed off on removing the prostate. Vasectomy Immunization Name Dates Details Influenza (3 years and up) Lot #: [id number] Administered on:13-Jan-2012 Comments: Site: Deltoid ( Left); Given at [facility] by Sherri PERRY Influenza (3 years and up) Lot #: [id number] Administered on:28-Dec-2012 Comments: Site: Deltoid (Right) Influenza, preserv. free, enhanced immun ogncty, IM Lot #: [id number] Administered on:16-Jan-2015 Comments: Site: Deltoid (Right) Influenza, preserv. free, enhanced immun ogncty, IM Lot #: [id number] Administered on:31-Jan-2016 Comments: Site: Deltoid (Left) Pneumococcal (2 years and up) Lot #: [id number] Administered on:19-Jan-2014 Comments: Site: Deltoid (Right); Admin by Antoinette Sheets RN Pneumococcal conjugate vaccine, 13 floresita t, IM Lot #: [id number] Administered on:31-Jan-2016 Comments: Site: Deltoid (Right) Quadrivalent Influenza Vaccine for 3 yrs & up. Lot #: [id number] Administered on:19-Jan-2014 Comments: Site: Deltoid (Left); Admin by Antoinette Sheets RN Tdap (7 years and up) Lot #: [id number] Administered on:20-Dec-2008 Comments: Site: Deltoid (Left) Family [...] Comments: Status: Active Most Recent Primary Occupation: [employer]. 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 Comments: [facility] Status: Active Vital Signs Date Test Result [...] 1 Treatment Plan * BASIC METABOLIC PANEL (46845); Ordered: 07/17/2015 * PSA (Medicare) (G0103); Ordered: 07/17/2015 * THEODORE CULTURE-URINE (64321); Ordered: 07/04/2013 * Chem 8 BMP (36026); Ordered: 12/24/2012; Note: STANDING ORDER * CBC (57629); Ordered: 12/21/2012 * Chem 8 BMP (63569); Ordered: 12/21/2012 * VITAMIN D 25 (CALCIFEROL)(60363); Ordered: 05/31/2012 * CBC (58285); Ordered: 01/09/2012 * URINALYSIS, (05166); Ordered: 01/09/2012 * THEODORE CULTURE-URINE (35199); Ordered: 01/09/2012 * BASIC METABOLIC PANEL,BMP (29204); Ordered: 10/31/2011; Note: STANDING ORDER * PHOSPHORUS (88081); Ordered: 10/31/2011 * MAGNESIUM (48120); Ordered: 10/31/2011 * VANCOMYCIN, TROUGH (33245); Ordered: 10/27/2011; Note: STANDING ORDER-Do as directed by the pharmacist. * Chem 8 BMP (67273); Ordered: 10/27/2011; Note: STANDING ORDER * Chem 8 BMP (15591); Ordered: 09/23/2011 * IRON PROFILE*; Ordered: 05/29/2011 * HGB A1C (32672); Ordered: 05/29/2011 * LIPID PANEL (31820); Ordered: 05/28/2011 * PSA (PROSTATE SPECIFIC ANTIGEN) (42048); Ordered: 05/28/2011 * METABOLIC PANEL, BASIC (46469); Ordered: 05/28/2011 * LIVER FUNCTION PANEL* (61376); Ordered: 05/28/2011 * VITAMIN B-12 (CYANOCOBALAMIN) (88113); Ordered: 05/28/2011 * TSH (THYROID STIMULATING HORMONE) (96386); Ordered: 05/28/2011 * VITAMIN D 25 (CALCIFEROL)(92783); Ordered: 05/28/2011 * MAGNESIUM (69253); Ordered: 05/28/2011 * EKG (06026); Ordered: 05/28/2011 * CBC & PLATELETS (AUTO) (21179); Ordered: 05/28/2011 * LIVER FUNCTION PANEL* (85183); Ordered: 01/16/2010 * CBC (25471); Ordered: 01/16/2010 * LIPID PANEL (04614); Ordered: 01/16/2010 * BASIC METABOLIC PANEL,BMP (13435); Ordered: 01/16/2010 * BASIC METABOLIC PANEL,BMP (02200); Ordered: 01/19/2009 * BASIC METABOLIC PANEL,BMP (88015); Ordered: 12/20/2008 * TSH (THYROID STIMULATING HORMONE) (62533); Ordered: 12/15/2008 * VITAMIN D, 25 (CALCIFEROL) (04817); Ordered: 12/15/2008 * CBC (13372); Ordered: 12/15/2008 * BASIC METABOLIC PANEL,BMP (10439); Ordered: 12/15/2008 * LIVER FUNCTION PANEL* (58039); Ordered: 12/15/2008 * LIPID PANEL (76462); Ordered: 12/15/2008 Advance Directives * Consent of Care Agreement - Effective on 01/25/2016. Expiration date unspecified. Scanned Document is available upon request. Effective: 25-Jan-2016 Encounters Office Visit - COMMON COLD VIRUS (460 | J00) Encounter Reason: Sinusitis - Symptoms include nasal congestion, postnasal drainage, forehead pressure and cough. Onset was sudden 1 day(s) ago. The symptoms occur constantly. The patient describes this as moderate in severity and worsening. Associated symptoms include chills and sore throat.[facility] to Office Visit - ACUTE MAXILLARY SINUSITIS (461.0 | J01.00) Encounter Reason: Sinus Congestion - Symptoms include clear rhinorrhea, cheek pain, cheek pressure and cough, while symptoms do not include ear pain or headache. Onset was 4 day(s) ago. Note for "Sinusitis": pt having sinus pain and c/o eye pressure. [facility] to 20-May[facility]2016 Office Visit - BENIGN [...] has had this dressing on for one week.[facility] 05-Feb-2016 to 08-Feb-2016 Nurse Visit - FLU VACCINE - HIGH DOSE (R enamed from NEED FOR IMMUNIZATION AGAINST INFLUENZA) (V04.81 | Z23), PREVNAR 13 (Renamed from NEED FOR VACCINATION WITH 13-POLYVALENT PNEUMOCOCCAL CONJUGATE VACCINE) (V03.82 | Z23) [facility] On 31-Jan-2016 18:14 to 18:16 Office Visit [...] it. after taking bath, scab fell off. [facility] On 25-Jan-2016 11:30 to 13:42 Annotation/Addendum - SCHIZOPHRENIA (295 .90 | F20.9) [facility] On 10-Jan-2016 15:30 to 15:38 Office Visit [...] | K59.09), Hypokalemia (276.8) (276.8 | E87.6) [facility] 17-Jul-2015 to 01-Aug-2015 Nurse Visit - FLU VACCINE - HIGH DOSE (R enamed from NEED FOR IMMUNIZATION AGAINST INFLUENZA) (V04.81 | Z23) [facility] On 16-Jan-2015 17:35 to 17:37 Medication Note - OBESITY, MORBID (278.0 1 | E66.01) [facility] On 15-Jan-2015 14:58 to 16:31 Office Visit - Edema (782.3) (782.3 | R6 0.9), URINARY FREQUENCY (788.41 | R35.0) Encounter Reason: General Exam, Follow Up - Note for "Follow up general exam": Pt here from [facility] for 60 day check up. no concerns.[facility] 01-Feb-2014 to 03-Feb-2014 Nurse visit (Non-Billable) - Pneumococca l vaccination (V03.82) 5 years + [facility] On 31-Jan-2014 17:21 to 17:23 Nurse visit (Non-Billable) - FLU VACCINE - QUADRAVALENT (Renamed from NEED FOR IMMUNIZATION AGAINST INFLUENZA) (V04.81 | Z23) [facility] On 31-Jan-2014 16:06 to 16:27 Medication Note - HYPERTENSION (401.9 | I10) [facility] On 24-Aug-2013 12:17 to 15:01 Office Visit [...] history of colon cancer. No blood in stools.[facility] 11-Aug-2013 to 18-Aug-2013 Annotation/Addendum - Unspecified Diagno sis [facility] On 04-Jul-2013 11:55 to 11:58 Office Visit - Obstructive sleep apnea ( 327.23), Chronic atrial fibrillation (Renamed from Atrial fibrillation, chronic) (427.31 | I48.2), Hypertension, benign (401.1), Edema (782.3) (782.3 | R60.9) Encounter Reason[facility] 22-Feb-2013 15:29 to 15:54 Office Visit - Edema (782.3), Obstructiv e sleep apnea (327.23), Hypertension, benign (401.1), Chronic atrial fibrillation (427.31) Encounter Reason: Review [facility] results[facility] 25-Jan-2013 to 03-Feb-2013 Office Visit - Edema (782.3), Obstructiv e sleep apnea (327.23), Hypertension, benign (401.1), Renal insufficiency (593.9) Encounter Reason: [facility]itis[facility] 12-Jan-2013 to 18-Jan-2013 Office Visit - Edema (782.3), Heart fail ure, right (428.0), Obstructive sleep apnea (327.23) Encounter Reason: [facility]itis[facility] 29-Dec-2012 to 04-Jan-2013 Office Visit - Cellulitis and abscess of leg (682.6), Heart failure, right (428.0), Edema (782.3) Encounter Reason: [facility]itis[facility] On 24-Dec-2012 15:42 to 16:19 Office Visit - Cellulitis and abscess of leg (682.6), Heart failure, right (428.0), Edema (782.3) Encounter Reason: Cellulitis - The last clinic visit was 1 week(s) ago. Symptoms include swelling, tenderness and drainage. Symptoms are located on the right leg. The symptoms occur constantly. The patient describes this as worsening. [facility] 21-Dec-2012 to 22-Dec-2012 Medication Note - ANXIETY AND DEPRESSION (300.4) [facility] On 07-Dec-2012 13:57 to 14:02 Medication Note - Delusional disorder (2 97.1) [facility] On 25-Nov-2012 15:07 to 16:36 Office Visit - Chronic atrial fibrillati on (427.31), Obstructive sleep apnea (327.23), Delusional disorder (297.1) [facility] to Office Visit - Hypertension, benign (401 .1), Chronic atrial fibrillation (427.31), Obstructive sleep apnea (327.23), Delusional disorder (297.1) Encounter Reason: Medication Review/Refill - Note for "Medication Review/Refill": [facility]ar[facility] Medication Note - Hypertension, benign ( 401.1) [facility] On 29-Jun-2012 15:53 to 15:54 Annotation/Addendum - Vitamin B 12 defic iency (266.2) [facility] 22-Jun-2012 to 23-Jun-2012 Annotation/Addendum - Heart failure, rig ht (428.0) [facility] On 07-Jun-2012 13:12 to 22:44 Annotation/Addendum - Vitamin D deficien cy (268.9) [facility] 31-May-2012 to 01-Jun-2012 Annotation/Addendum - Hypokalemia (276.8 ) [facility] On 16-Mar-2012 10:49 to 10:50 Medication Note - Chronic atrial fibrill ation (427.31) [facility] On 30-Jan-2012 11:29 to 11:31 Annotation/Addendum [facility] On 19-Jan-2012 12:00 to 12:03 Annotation/Addendum - Hematuria (599.70) [facility] On 09-Jan-2012 15:02 to 15:42 Annotation/Addendum - Edema (782.3) [facility] On 25-Nov-2011 12:08 to 12:09 Office Visit - Fibrillation, atrial (427 .31), Edema (782.3), Obstructive sleep apnea (327.23), Hypertension, benign (401.1), Type II diabetes mellitus (250.00) [facility] 18-Nov-2011 to 19-Nov-2011 Office Visit - Edema (782.3), Cellulitis and abscess of leg (682.6), Obstructive sleep apnea (327.23), Fibrillation, atrial (427.31), Stasis dermatitis (454.1), Conjunctivitis NOS (372.30) [facility] 05-Nov-2011 to 06-Nov-2011 Office Visit - Cellulitis and abscess of leg (682.6), Chronic kidney disease, stage III (moderate) (585.3), Edema (782.3), Obstructive sleep apnea (327.23), Hypertension, benign (401.1), Fibrillation, atrial (427.31), Encounter for long- term (current) use of other medications (V58.69) [facility] to Office Visit - Edema (782.3), Cellulitis and abscess of leg (682.6), Stasis dermatitis (454.1), Chronic kidney disease, stage III (moderate) (585.3), Encounter for long-term (current) use of other medications (V58.69), 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) Encounter Reason: Ankle Swelling - Patient has had swelling in bilateral feet and ankles with rednessand abdomen has some redness to it [facility] Annotation/Addendum - Chronic kidney dis ease, stage III (moderate) (585.3) [facility] On 11:38 to 11:41 Annotation/Addendum - Renal failure (ARF ), acute on chronic (584.9) [facility] On 12:57 to 12:58 Office Visit - Fibrillation, atrial (427 .31), Type II diabetes mellitus (250.00), Obstructive sleep apnea (327.23), Hypertension, benign (401.1) [facility] to Annotation/Addendum [facility] On 12:43 to 12:54 Office Visit - Type II diabetes mellitus (250.00), Fibrillation, atrial (427.31), Hypertension, benign (401.1), Obstructive sleep apnea (327.23) [facility] to Medication Note - Unspecified Diagnosis [facility] On 22-Jul-2011 10:19 to 10:27 Annotation/Addendum - Type II diabetes m ellitus (250.00), Iron deficiency anemia (280.9) [facility] On 29-May-2011 13:55 to 13:58 Office Visit - Fibrillation, atrial (427 .31) [facility] On 28-May-2011 13:17 to 13:41 Office Visit - Hypertension, benign (401 .1), Primary pulmonary hypertension (416.0), Obstructive sleep apnea (327.23), Edema (782.3), Fibrillation, atrial (427.31), Encounter for long-term (current) use of other medications (V58.69), Magnesium deficiency (275.2), Osteomalacia (268.2), Malaise and fatigue (780.79), Benign prostatic hypertrophy with urinary retention (600.01), CA of prostate (185), Hypercholesterolemia (272.0) [facility] 28-May-2011 to 29-May-2011 Annotation/Addendum [facility] On 20-May-2011 11:13 to 11:14 Office Visit-Pre [...] Associated symptoms include leg pain and edema. [facility] On 16-May-2011 12:42 to 13:20 Office Visit [...] and talking. Symptoms are relieved by sitting up.[facility] 08-May-2011 to 09-May-2011 Office Visit - Hypertension, [...] patient cannot control the flow of urine. [facility] On 16-Jan-2010 16:29 to 16:44 Office Visit - Edema (782.3), Hypertensi on, benign (401.1), Obstructive sleep apnea (327.23), Primary pulmonary hypertension (416.0), Asthma (493.90) [facility] On 19-Jan-2009 11:37 to 12:11 Office Visit - Need for prophylactic vac cination and inoculation against combinations of disease (V06.8), Edema (782.3), Hypertension, benign (401.1), Obstructive sleep apnea (327.23), Primary pulmonary hypertension (416.0), Asthma (493.90) [facility] On 20-Dec-2008 15:48 to 16:19 Office Visit - Obstructive sleep apnea ( 327.23), Primary pulmonary hypertension (416.0), Edema (782.3), Malaise and fatigue (780.79), Hypertension, benign (401.1), Hypercholesterolemia (272.0), Encounter for long-term (current) use of other medications (V58.69), Urinary incontinence (788.30) [facility] On 15-Dec-2008 12:50 to 13:16 Insurance * Valente Trujillo ; a guarantor * MedicareA115 * [employer] * MedicareB146 * Blue Cross Pt [employer] * [employer] * [employer] Primary Preferred Three Tier * [employer] Primary Preferred Three Tier * [facility] * [facility] [facility] * 2014ZE * [employer] MED-D PDP LOW
--- OUTSIDE RECORDS SUMMARY | 2019-09-03 18:46 | XMS REPORT | Continuity of Care Document ---
Author Author [facility] Address [address] [place] [address] Phone Care Team Providers Care Manager Client Support Name Role Phone Homar Clifton PP Errol FACULTY DEAN, Nneka Unavailable Unavailable Katlin Berger Unavailable Leela HAND RIGGER, Rubia Unavailable Unavailable Problems Name Dates Details Acute [...] wisdom teet h removed in [address] [facility]; lap cholecystectomy 197; vasectomy in 1988; open prostatectomy attempt by [facility] in 2005 but due to fear of [...] * Quantity: 30 Refills: 0 Ordered :11-Aug-2013 Homar Clifton Kali * Started 08-May-2011 ActiveATORVASTATIN CALCIUM, 40MG (Oral Tablet) [...] * Quantity: 30 Refills: 4 Ordered :11-Aug-2013 RubHomar Hubbard Kali * Started 16-Jan-2010 Active Comments: for urinary incontinence (OK to use generic) Digoxin - Historical Medication 250mcg daily ActiveDILTIAZEM HCL CD, 360MG (Oral Capsule Extended Release 24 Hour) 1 (one) Capsule ER 24HR Capsule ER 24HR daily for 30 days * Quantity: 30 Refills: 5 Ordered :01-Feb-2014 Hemanth Meza MD* Started 24-Aug-2013 Active Comments: 08/09/13 Called to Jay at [facility] ESCITALOPRAM OXALATE, 20MG (Oral Tablet) 1 Tablet [...] :18-Jul-2013 Hemanth Meza MD* Started 18-Jul-2013 ActiveNYSTATIN, [id number]/GM (External Powder) 1 (one) application application two times daily until clear for 0 days * Quantity: 1 Refills: 0 Ordered :17-Jul-2015 Homar Clifton Kali * Started 15-Jan-2015 Active Comments: Called to Avinash louis [facility]--she will order from [facility].--01/15/15 Khushi OXYBUTYNIN CHLORIDE, 5MG (Oral Tablet) 1 [...] * Quantity: 45 Refills: 6 Ordered :16-Aug-2013 Homar Clifton Kali * Started 05-Nov-2011 Active Comments: for stasis dermatitis [...] Change to 360mg ER daily-[facility] DILTIAZEM HCL, 90MG (Oral Tablet) 1 Tablet [...] R35.0) Status: Inactive Procedures Procedure Dates Details MRI BRAIN W/O CONTRAST (09972) Ordered:10-Jan-2016 Flu (Influenza) *: flu shot Ordered:16-Jan-2015 IMMUNIZ ADMNIN, 1 VAC, SNGL/COMBO (27314) Completed:16-Jan-2015 INTRAMUSCULAR ADMINISTRATION OF HIGH DOS E SPLIT VIRUS PRESERVATIVE FREE INFLUENZA VACCINE (13076) Completed:16-Jan-2015 Follow up in 2 months Ordered:01-Feb-2014 IMMUNIZATION ADMIN (09828) Completed:Jan-2014 PNEUMOCOCCAL VACCINE (59462) Completed:2 11-Jan-2014 Flu (Influenza) *: flu shot Ordered:31-Jan-2014 IMMUNIZATION ADMIN (37899) Completed:Jan-2014 FLU VACCINE NO PRSV QUADRAVALENT 3 YRS+ (38935) Completed:31-Jan-2014 FOLLOW UP BY PCP Ordered:08-May-2011 IMMUNIZ ADMNIN, 1 VAC, SNGL/COMBO (65499) Ordered: 9 TDAP VACCINE IM, >7 YEARS (44574) Ordered:20-Dec-2008 Gallbladder Surgery - Laparoscopic Vasectomy Immunization Name Dates Details Influenza (3 years and up) Lot #: [id number] Administered on:13-Jan-2012 Comments: Site: Deltoid (L eft); Given at [facility] by Sherri PERRY Influenza (3 years and up) Lot #: [id number] Administered on:28-Dec-2012 Comments: Site: Deltoid ( Right) Influenza, preserv. free, enhanced immun ogncty, IM Lot #: [id number] Administered on:16-Jan-2015 Comments: Site: Deltoid ( Right) Pneumococcal (2 years and up) Lot #: [id number] Administered on:19-Jan-2014 Comments: Site: Deltoid ( Right); Admin by Antoinette Sheets RN Quadrivalent Influenza Vaccine for 3 yrs & up. 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 @ [employer] No Drug Use Non Smoker/No Tobacco Use [...] 1 Treatment Plan * BASIC METABOLIC PANEL (51533); Ordered: 07/17/2015 * PSA (Medicare) (G0103); Ordered: 07/17/2015 * THEODORE CULTURE-URINE (86876); Ordered: 07/04/2013 * Chem 8 BMP (92180); Ordered: 12/24/2012; Note: STANDING ORDER * CBC (09119); Ordered: 12/21/2012 * Chem 8 BMP (64407); Ordered: 12/21/2012 * VITAMIN D 25 (CALCIFEROL)(11686); Ordered: 05/31/2012 * CBC (06611); Ordered: 01/09/2012 * URINALYSIS, (72552); Ordered: 01/09/2012 * THEODORE CULTURE-URINE (75823); Ordered: 01/09/2012 * BASIC METABOLIC PANEL,BMP (17419); Ordered: 10/31/2011; Note: STANDING ORDER * PHOSPHORUS (10365); Ordered: 10/31/2011 * MAGNESIUM (58734); Ordered: 10/31/2011 * VANCOMYCIN, TROUGH (02278); Ordered: 10/27/2011; Note: STANDING ORDER-Do as directed by the pharmacist. * Chem 8 BMP (07698); Ordered: 10/27/2011; Note: STANDING ORDER * Chem 8 BMP (38418); Ordered: 09/23/2011 * IRON PROFILE*; Ordered: 05/29/2011 * HGB A1C (53547); Ordered: 05/29/2011 * LIPID PANEL (41830); Ordered: 05/28/2011 * PSA (PROSTATE SPECIFIC ANTIGEN) (18033); Ordered: 05/28/2011 * METABOLIC PANEL, BASIC (27662); Ordered: 05/28/2011 * LIVER FUNCTION PANEL* (85880); Ordered: 05/28/2011 * VITAMIN B-12 (CYANOCOBALAMIN) (86782); Ordered: 05/28/2011 * TSH (THYROID STIMULATING HORMONE) (74888); Ordered: 05/28/2011 * VITAMIN D 25 (CALCIFEROL)(68404); Ordered: 05/28/2011 * MAGNESIUM (03593); Ordered: 05/28/2011 * EKG (87051); Ordered: 05/28/2011 * CBC & PLATELETS (AUTO) (12799); Ordered: 05/28/2011 * LIVER FUNCTION PANEL* (54932); Ordered: 01/16/2010 * CBC (41035); Ordered: 01/16/2010 * LIPID PANEL (61496); Ordered: 01/16/2010 * BASIC METABOLIC PANEL,BMP (83915); Ordered: 01/16/2010 * BASIC METABOLIC PANEL,BMP (74966); Ordered: 01/19/2009 * BASIC METABOLIC PANEL,BMP (61632); Ordered: 12/20/2008 * TSH (THYROID STIMULATING HORMONE) (43023); Ordered: 12/15/2008 * VITAMIN D, 25 (CALCIFEROL) (18763); Ordered: 12/15/2008 * CBC (14598); Ordered: 12/15/2008 * BASIC METABOLIC PANEL,BMP (17990); Ordered: 12/15/2008 * LIVER FUNCTION PANEL* (35700); Ordered: 12/15/2008 * LIPID PANEL (90302); Ordered: 12/15/2008 Advance Directives No Advance Directives available. Encounters Annotation/Addendum - SCHIZOPHRENIA (295 .90 | F20.9) [facility] On 10-Jan-2016 13:30 Office Visit - TYPE II DIABETES MELLITUS [...] | K59.09), Hypokalemia (276.8) (276.8 | E87.6) [facility] On 17-Jul-2015 15:17 Nurse Visit - FLU VACCINE - HIGH DOSE (R enamed from NEED FOR IMMUNIZATION AGAINST INFLUENZA) (V04.81 | Z23) [facility] On 16-Jan-2015 15:35 Medication Note - OBESITY, MORBID (278.0 1 | E66.01) [facility] On 15-Jan-2015 12:58 Office Visit - Edema (782.3) (782.3 | R6 0.9), URINARY FREQUENCY (788.41 | R35.0) Encounter Reason: General Exam, Follow Up - Note for "Follow up general exam": Pt here from [facility] for 60 day check up. no concerns.[facility] On 01-Feb-2014 08:24 Nurse visit (Non-Billable) - Pneumococca l vaccination (V03.82) 5 years + [facility] On 31-Jan-2014 15:21 Nurse visit (Non-Billable) - FLU VACCINE - QUADRAVALENT (Renamed from NEED FOR IMMUNIZATION AGAINST INFLUENZA) (V04.81 | Z23) [facility] On 31-Jan-2014 14:06 Medication Note - HYPERTENSION (401.9 | I10) [facility] On 24-Aug-2013 10:17 Office Visit - Chronic [...] history of colon cancer. No blood in stools.[facility] On 11-Aug-2013 10:54 Annotation/Addendum - Unspecified Diagno sis [facility] On 04-Jul-2013 09:55 Office Visit - Obstructive sleep apnea ( 327.23), Chronic atrial fibrillation (Renamed from Atrial fibrillation, chronic) (427.31 | I48.2), Hypertension, benign (401.1), Edema (782.3) (782.3 | R60.9) [facility] 13[facility]29 Office Visit - Edema (782.3), Obstructiv e sleep apnea (327.23), Hypertension, benign (401.1), Chronic atrial fibrillation (427.31) Encounter Reason: [facility] 25[facility]Jan-2013 13:25 Office Visit - Edema (782.3), Obstructiv e sleep apnea (327.23), Hypertension, benign (401.1), Renal insufficiency (593.9) [facility]: [facility]24 Office Visit - Edema (782.3), Heart fail ure, right (428.0), Obstructive sleep apnea (327.23) [facility]: [facility]26 Office Visit - Cellulitis and abscess of leg (682.6), Heart failure, right (428.0), Edema (782.3) [facility]: [facility]2012 13:42 Office Visit - Cellulitis and abscess of leg (682.6), Heart failure, right (428.0), Edema (782.3) Encounter Reason: Cellulitis - The last clinic visit was 1 week(s) ago. Symptoms include swelling, tenderness and drainage. Symptoms are located on the right leg. The symptoms occur constantly. The patient describes this as worsening. [facility] On 21-Dec-2012 13:38 Medication Note - ANXIETY AND DEPRESSION (300.4) [facility] On 07-Dec-2012 11:57 Medication Note - Delusional disorder (2 97.1) [facility] On 25-Nov-2012 13:07 Office Visit - Chronic atrial fibrillati on (427.31), Obstructive sleep apnea (327.23), Delusional disorder (297.1) [facility] On 10:19 Office Visit - Hypertension, benign (401 .1), Chronic atrial fibrillation (427.31), Obstructive sleep apnea (327.23), Delusional disorder (297.1) Encounter Reason: Medication Review/Refill - Note for "Medication Review/Refill": [facility] 10:37 Medication Note - Hypertension, benign ( 401.1) [facility] On 29-Jun-2012 13:53 Annotation/Addendum - Vitamin B 12 defic iency (266.2) [facility] On 22-Jun-2012 17:11 Annotation/Addendum - Heart failure, rig ht (428.0) [facility] On 07-Jun-2012 11:12 Annotation/Addendum - Vitamin D deficien cy (268.9) [facility] On 31-May-2012 16:31 Annotation/Addendum - Hypokalemia (276.8 ) [facility] On 16-Mar-2012 08:49 Medication Note - Chronic atrial fibrill ation (427.31) [facility] On 30-Jan-2012 09:29 Annotation/Addendum [facility] On 19-Jan-2012 10:00 Annotation/Addendum - Hematuria (599.70) [facility] On 09-Jan-2012 13:02 Annotation/Addendum - Edema (782.3) [facility] On 25-Nov-2011 10:08 Office Visit - Fibrillation, atrial (427 .31), Edema (782.3), Obstructive sleep apnea (327.23), Hypertension, benign (401.1), Type II diabetes mellitus (250.00) [facility] On 18-Nov-2011 09:35 Office Visit - Edema (782.3), Cellulitis and abscess of leg (682.6), Obstructive sleep apnea (327.23), Fibrillation, atrial (427.31), Stasis dermatitis (454.1), Conjunctivitis NOS (372.30) [facility] On 05-Nov-2011 09:41 Office Visit - Cellulitis and abscess of leg (682.6), Chronic kidney disease, stage III (moderate) (585.3), Edema (782.3), Obstructive sleep apnea (327.23), Hypertension, benign (401.1), Fibrillation, atrial (427.31), Encounter for long- term (current) use of other medications (V58.69) [facility] On 10:35 Office Visit - Edema (782.3), Cellulitis and abscess of leg (682.6), Stasis dermatitis (454.1), Chronic kidney disease, stage III (moderate) (585.3), Encounter for long-term (current) use of other medications (V58.69), 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) Encounter Reason: Ankle Swelling - Patient has had swelling in bilateral feet and ankles with rednessand abdomen has some redness to it alsoGoLife[facility] 10:18 Annotation/Addendum - Chronic kidney dis ease, stage III (moderate) (585.3) [facility] On 09:38 Annotation/Addendum - Renal failure (ARF ), acute on chronic (584.9) [facility] On 10:57 Office Visit - Fibrillation, atrial (427 .31), Type II diabetes mellitus (250.00), Obstructive sleep apnea (327.23), Hypertension, benign (401.1) [facility] On 09:52 Annotation/Addendum [facility] On 10:43 Office Visit - Type II diabetes mellitus (250.00), Fibrillation, atrial (427.31), Hypertension, benign (401.1), Obstructive sleep apnea (327.23) [facility] On 10:34 Medication Note - Unspecified Diagnosis [facility] On 22-Jul-2011 08:19 Annotation/Addendum - Type II diabetes m ellitus (250.00), Iron deficiency anemia (280.9) [facility] On 29-May-2011 11:55 Office Visit - Fibrillation, atrial (427 .31) [facility] On 28-May-2011 11:17 Office Visit - Hypertension, benign (401 .1), Primary pulmonary hypertension (416.0), Obstructive sleep apnea (327.23), Edema (782.3), Fibrillation, atrial (427.31), Encounter for long-term (current) use of other medications (V58.69), Magnesium deficiency (275.2), Osteomalacia (268.2), Malaise and fatigue (780.79), Benign prostatic hypertrophy with urinary retention (600.01), CA of prostate (185), Hypercholesterolemia (272.0) [facility] On 28-May-2011 11:01 Annotation/Addendum [facility] On 20-May-2011 09:13 Office Visit-Pre Admission [...] Associated symptoms include leg pain and edema. [facility] On 16-May-2011 10:42 Office Visit - [...] and talking. Symptoms are relieved by sitting up.[facility] On 08-May-2011 08:38 Office Visit - [...] patient cannot control the flow of urine. [facility] On 16-Jan-2010 14:29 Office Visit - Edema (782.3), Hypertensi on, benign (401.1), Obstructive sleep apnea (327.23), Primary pulmonary hypertension (416.0), Asthma (493.90) [facility] On 19-Jan-2009 09:37 Office Visit - Need for prophylactic vac cination and inoculation against combinations of disease (V06.8), Edema (782.3), Hypertension, benign (401.1), Obstructive sleep apnea (327.23), Primary pulmonary hypertension (416.0), Asthma (493.90) [facility] On 20-Dec-2008 13:48 Office Visit - Obstructive sleep apnea ( 327.23), Primary pulmonary hypertension (416.0), Edema (782.3), Malaise and fatigue (780.79), Hypertension, benign (401.1), Hypercholesterolemia (272.0), Encounter for long-term (current) use of other medications (V58.69), Urinary incontinence (788.30) [facility] On 15-Dec-2008 10:50 Insurance * Valente Trujillo ; a guarantor * MedicareA115 * [facility] * MedicareB146 * [employer] * [facility] * [employer] Primary Preferred Three Tier * [employer] Primary Preferred Three Tier * [facility] * [facility] * 2014 [employer] * [employer] MED-D PDP LOW
--- OUTSIDE RECORDS SUMMARY | 2019-09-03 18:46 | XMS REPORT | Continuity of Care Document ---
Author Author [facility] Address [address] [place] [address] Phone Care Team Providers Care Cold Press Loader Name Role Phone Josh Horton Homar Felix PP [phone] Errol ECOMMER[employer] MARKETING SPECIALIST, Nneka Unavailable Unavailable Winston RMA, Katlin Unavailable Lorna POST CLOSING SPECIALIST, Mau Ramos Unavailable Unavailable Leela ASSEMBLER CRIMPER, Rubia Unavailable Unavailable Problems Name Dates Details [...] wisdom teet h removed in 1983 in [facility]; lap cholecystectomy 197; vasectomy in 1988; open prostatectomy attempt by [facility] in 2005 but due to fear [...] * Quantity: 30 Refills: 4 Ordered :11-Aug-2013 Homar Clifton Kali * Started 16-Jan-2010 Active Comments: for urinary incontinence (OK to use generic) Digoxin - Historical Medication 250mcg daily ActiveDILTIAZEM HCL CD, 360MG (Oral Capsule Extended Release 24 Hour) 1 (one) Capsule ER 24HR Capsule ER 24HR daily for 30 days * Quantity: 30 Refills: 5 Ordered :01-Feb-2014 Hemanth Meza MD* Started 24-Aug-2013 Active Comments: 08/09/13 Called to Jay at [facility] ESCITALOPRAM OXALATE, 20MG (Oral Tablet) 1 [...] at 7 am20 mg at 1 pm KEFLEX, 500MG (Oral Capsule) 1 (one) Capsule three times daily for 7 days * Quantity: 21 Refills: 0 Ordered :25-Jan-2016 Homar Clifton Kali * Started 25-Jan-2016 ActiveLEXAPRO, 20MG (Oral Tablet) - Historical Medication (20 [...] :18-Jul-2013 Hemanth Meza MD* Started 18-Jul-2013 ActiveNYSTATIN, 565647PTIU/GM (External Powder) 1 (one) application application two times daily until clear for 0 days * Quantity: 1 Refills: 0 Ordered :17-Jul-2015 Homar Clifton Kali * Started 15-Jan-2015 Active Comments: Called to Avinash myers [facility]--she will order from [facility].--01/15/15 Khushi OXYBUTYNIN CHLORIDE, 5MG (Oral Tablet) 1 [...] Change to 360mg ER daily[facility] DILTIAZEM HCL, 90MG (Oral Tablet) 1 [...] Procedure Dates Details MRI BRAIN W/O CONTRAST (61757) Ordered:10-Jan-2016 Flu (Influenza) *: flu shot Ordered:16-Jan-2015 IMMUNIZ ADMNIN, 1 VAC, SNGL/COMBO (95511) Completed:16-Jan-2015 INTRAMUSCULAR ADMINISTRATION OF HIGH DOS E SPLIT VIRUS PRESERVATIVE FREE INFLUENZA VACCINE (99908) Completed:16-Jan-2015 Follow up in 2 months Ordered:01-Feb-2014 IMMUNIZATION ADMIN (10952) Completed:Jan-2014 PNEUMOCOCCAL VACCINE (25083) Completed:2 11-Jan-2014 Flu (Influenza) *: flu shot Ordered:31-Jan-2014 IMMUNIZATION ADMIN (30312) Completed:Jan-2014 FLU VACCINE NO PRSV QUADRAVALENT 3 YRS+ (02537) Completed:31-Jan-2014 FOLLOW UP BY PCP Ordered:08-May-2011 IMMUNIZ ADMNIN, 1 VAC, SNGL/COMBO (45228) Ordered: 9 TDAP VACCINE IM, >7 YEARS (59248) Ordered:20-Dec-2008 Gallbladder Surgery - Laparoscopic Vasectomy Immunization Name Dates Details Influenza (3 years and up) Lot #: [id number] Administered on:13-Jan-2012 Comments: Site: Deltoid (L eft); Given at [facility] by Sherri PERRY Influenza (3 years and up) Lot #: [id number] Administered on:28-Dec-2012 Comments: Site: Deltoid ( Right) Influenza, preserv. free, enhanced immun ogncty, IM Lot #: [id number] Administered on:16-Jan-2015 Comments: Site: Deltoid ( Right) Pneumococcal (2 years and up) Lot #: [id number] Administered on:19-Jan-2014 Comments: Site: Deltoid ( Right); Admin by Antoinette Sheets RN Quadrivalent Influenza Vaccine for 3 yrs & up. 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 @ [employer] No Drug Use Non Smoker/No Tobacco Use Vital Signs Date Test Result Details 25-Jan-2016 09:31 Temperature 98.9 f Comments: Method: T ympanic [...] Body Surface Area Calculated 2.59 m2 17-Jul-2015 15:17 Temperature 98.3 f Pulse 84 [...] 1 Treatment Plan * BASIC METABOLIC PANEL (12897); Ordered: 07/17/2015 * PSA (Medicare) (G0103); Ordered: 07/17/2015 * THEODORE CULTURE-URINE (82750); Ordered: 07/04/2013 * Chem 8 BMP (61249); Ordered: 12/24/2012; Note: STANDING ORDER * CBC (85863); Ordered: 12/21/2012 * Chem 8 BMP (28412); Ordered: 12/21/2012 * VITAMIN D 25 (CALCIFEROL)(40877); Ordered: 05/31/2012 * CBC (56003); Ordered: 01/09/2012 * URINALYSIS, (68367); Ordered: 01/09/2012 * THEODORE CULTURE-URINE (99199); Ordered: 01/09/2012 * BASIC METABOLIC PANEL,BMP (65370); Ordered: 10/31/2011; Note: STANDING ORDER * PHOSPHORUS (65363); Ordered: 10/31/2011 * MAGNESIUM (46525); Ordered: 10/31/2011 * VANCOMYCIN, TROUGH (48089); Ordered: 10/27/2011; Note: STANDING ORDER-Do as directed by the pharmacist. * Chem 8 BMP (23776); Ordered: 10/27/2011; Note: STANDING ORDER * Chem 8 BMP (28100); Ordered: 09/23/2011 * IRON PROFILE*; Ordered: 05/29/2011 * HGB A1C (15492); Ordered: 05/29/2011 * LIPID PANEL (02645); Ordered: 05/28/2011 * PSA (PROSTATE SPECIFIC ANTIGEN) (16447); Ordered: 05/28/2011 * METABOLIC PANEL, BASIC (47096); Ordered: 05/28/2011 * LIVER FUNCTION PANEL* (30304); Ordered: 05/28/2011 * VITAMIN B-12 (CYANOCOBALAMIN) (21363); Ordered: 05/28/2011 * TSH (THYROID STIMULATING HORMONE) (51620); Ordered: 05/28/2011 * VITAMIN D 25 (CALCIFEROL)(65910); Ordered: 05/28/2011 * MAGNESIUM (37802); Ordered: 05/28/2011 * EKG (68212); Ordered: 05/28/2011 * CBC & PLATELETS (AUTO) (65137); Ordered: 05/28/2011 * LIVER FUNCTION PANEL* (68130); Ordered: 01/16/2010 * CBC (17731); Ordered: 01/16/2010 * LIPID PANEL (95372); Ordered: 01/16/2010 * BASIC METABOLIC PANEL,BMP (28329); Ordered: 01/16/2010 * BASIC METABOLIC PANEL,BMP (14745); Ordered: 01/19/2009 * BASIC METABOLIC PANEL,BMP (07608); Ordered: 12/20/2008 * TSH (THYROID STIMULATING HORMONE) (80487); Ordered: 12/15/2008 * VITAMIN D, 25 (CALCIFEROL) (05440); Ordered: 12/15/2008 * CBC (27031); Ordered: 12/15/2008 * BASIC METABOLIC PANEL,BMP (32775); Ordered: 12/15/2008 * LIVER FUNCTION PANEL* (14576); Ordered: 12/15/2008 * LIPID PANEL (65723); Ordered: 12/15/2008 Advance Directives No Advance Directives available. Encounters Office Visit - NEOPLASM OF UNCERTAIN BEH [...] taking bath, scab fell off. [facility] On 25-Jan-2016 09:30 Annotation/Addendum - SCHIZOPHRENIA (295 .90 | F20.9) [facility] On 10-Jan-2016 13:30 Office Visit - TYPE [...] Hypokalemia (276.8) (276.8 | E87.6) [facility] On 17-Jul-2015 15:17 Nurse Visit - FLU VACCINE - HIGH DOSE (R enamed from NEED FOR IMMUNIZATION AGAINST INFLUENZA) (V04.81 | Z23) [facility] On 16-Jan-2015 15:35 Medication Note - OBESITY, MORBID (278.0 1 | E66.01) [facility] On 15-Jan-2015 12:58 Office Visit - Edema (782.3) (782.3 | R6 0.9), URINARY FREQUENCY (788.41 | R35.0) Encounter Reason: General Exam, Follow Up - Note for "Follow up general exam": Pt here from [facility] for 60 day check up. no concerns.[facility] On 01-Feb-2014 08:24 Nurse visit (Non-Billable) - Pneumococca l vaccination (V03.82) 5 years + [facility] On 31-Jan-2014 15:21 Nurse visit (Non-Billable) - FLU VACCINE - QUADRAVALENT (Renamed from NEED FOR IMMUNIZATION AGAINST INFLUENZA) (V04.81 | Z23) [facility] On 31-Jan-2014 14:06 Medication Note - HYPERTENSION (401.9 | I10) [facility] On 24-Aug-2013 10:17 Office Visit - Chronic [...] for "General - Male": Pt lives at [facility]. No chest pain or shortness of air. Pt has hx of prostate cancer. Is currently in treatment. Never had screening colonoscopy. No family history of colon cancer. No blood in stools.[facility] On 11-Aug-2013 10:54 Annotation/Addendum - Unspecified Diagno sis [facility] On 04-Jul-2013 09:55 Office Visit - Obstructive sleep apnea ( 327.23), Chronic atrial fibrillation (Renamed from Atrial fibrillation, chronic) (427.31 | I48.2), Hypertension, benign (401.1), Edema (782.3) (782.3 | R60.9) [facility] Reason[facility]-Feb-2013 13:29 Office Visit - Edema (782.3), Obstructiv e sleep apnea (327.23), Hypertension, benign (401.1), Chronic atrial fibrillation (427.31) Encounter Reason: Review [facility] results[facility] 25-Jan-2013 13:25 Office Visit - Edema (782.3), Obstructiv e sleep apnea (327.23), Hypertension, benign (401.1), Renal insufficiency (593.9) [facility]24 Office Visit - Edema (782.3), Heart fail ure, right (428.0), Obstructive sleep apnea (327.23) [facility] Reason[facility] 29-Dec-2012 13:26 Office Visit - Cellulitis and abscess of leg (682.6), Heart failure, right (428.0), Edema (782.3) [facility] Reason[facility] 24-Dec-2012 13:42 Office Visit - Cellulitis and abscess of leg (682.6), Heart failure, right (428.0), Edema (782.3) Encounter Reason: Cellulitis - The last clinic visit was 1 week(s) ago. Symptoms include swelling, tenderness and drainage. Symptoms are located on the right leg. The symptoms occur constantly. The patient describes this as worsening. [facility] On 21-Dec-2012 13:38 Medication Note - ANXIETY AND DEPRESSION (300.4) [facility] On 07-Dec-2012 11:57 Medication Note - Delusional disorder (2 97.1) [facility] On 25-Nov-2012 13:07 Office Visit - Chronic atrial fibrillati on (427.31), Obstructive sleep apnea (327.23), Delusional disorder (297.1) [facility] On 10:19 Office Visit - Hypertension, benign (401 .1), Chronic atrial fibrillation (427.31), Obstructive sleep apnea (327.23), Delusional disorder (297.1) Encounter Reason: Medication Review/Refill - Note for "Medication Review/Refill": [facility]an [facility] On 10:37 Medication Note - Hypertension, benign ( 401.1) [facility] On 29-Jun-2012 13:53 Annotation/Addendum - Vitamin B 12 defic iency (266.2) [facility] On 22-Jun-2012 17:11 Annotation/Addendum - Heart failure, rig ht (428.0) [facility] On 07-Jun-2012 11:12 Annotation/Addendum - Vitamin D deficien cy (268.9) [facility] On 31-May-2012 16:31 Annotation/Addendum - Hypokalemia (276.8 ) [facility] On 16-Mar-2012 08:49 Medication Note - Chronic atrial fibrill ation (427.31) [facility] On 30-Jan-2012 09:29 Annotation/Addendum [facility] On 19-Jan-2012 10:00 Annotation/Addendum - Hematuria (599.70) [facility] On 09-Jan-2012 13:02 Annotation/Addendum - Edema (782.3) [facility] On 25-Nov-2011 10:08 Office Visit - Fibrillation, atrial (427 .31), Edema (782.3), Obstructive sleep apnea (327.23), Hypertension, benign (401.1), Type II diabetes mellitus (250.00) [facility] On 18-Nov-2011 09:35 Office Visit - Edema (782.3), Cellulitis and abscess of leg (682.6), Obstructive sleep apnea (327.23), Fibrillation, atrial (427.31), Stasis dermatitis (454.1), Conjunctivitis NOS (372.30) [facility] On 05-Nov-2011 09:41 Office Visit - Cellulitis and abscess of leg (682.6), Chronic kidney disease, stage III (moderate) (585.3), Edema (782.3), Obstructive sleep apnea (327.23), Hypertension, benign (401.1), Fibrillation, atrial (427.31), Encounter for long- term (current) use of other medications (V58.69) [facility] On 10:35 Office Visit - Edema (782.3), Cellulitis and abscess of leg (682.6), Stasis dermatitis (454.1), Chronic kidney disease, stage III (moderate) (585.3), Encounter for long-term (current) use of other medications (V58.69), 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) Encounter Reason: Ankle Swelling - Patient has had swelling in bilateral feet and ankles with rednessand abdomen has some redness to it [facility] On 10:18 Annotation/Addendum - Chronic kidney dis ease, stage III (moderate) (585.3) [facility] On 09:38 Annotation/Addendum - Renal failure (ARF ), acute on chronic (584.9) [facility] On 10:57 Office Visit - Fibrillation, atrial (427 .31), Type II diabetes mellitus (250.00), Obstructive sleep apnea (327.23), Hypertension, benign (401.1) [facility] On 09:52 Annotation/Addendum [facility] On 10:43 Office Visit - Type II diabetes mellitus (250.00), Fibrillation, atrial (427.31), Hypertension, benign (401.1), Obstructive sleep apnea (327.23) [facility] On 10:34 Medication Note - Unspecified Diagnosis [facility] On 22-Jul-2011 08:19 Annotation/Addendum - Type II diabetes m ellitus (250.00), Iron deficiency anemia (280.9) [facility] On 29-May-2011 11:55 Office Visit - Fibrillation, atrial (427 .31) [facility] On 28-May-2011 11:17 Office Visit - Hypertension, benign (401 .1), Primary pulmonary hypertension (416.0), Obstructive sleep apnea (327.23), Edema (782.3), Fibrillation, atrial (427.31), Encounter for long-term (current) use of other medications (V58.69), Magnesium deficiency (275.2), Osteomalacia (268.2), Malaise and fatigue (780.79), Benign prostatic hypertrophy with urinary retention (600.01), CA of prostate (185), Hypercholesterolemia (272.0) [facility] On 28-May-2011 11:01 Annotation/Addendum [facility] On 20-May-2011 09:13 Office Visit-Pre Admission - [...] include leg pain and edema. [facility] On 16-May-2011 10:42 Office Visit - Acute [...] Symptoms are relieved by sitting up.[facility] On 08-May-2011 08:38 Office Visit - Hypertension, [...] control the flow of urine. [facility] On 16-Jan-2010 14:29 Office Visit - Edema (782.3), Hypertensi on, benign (401.1), Obstructive sleep apnea (327.23), Primary pulmonary hypertension (416.0), Asthma (493.90) [facility] On 19-Jan-2009 09:37 Office Visit - Need for prophylactic vac cination and inoculation against combinations of disease (V06.8), Edema (782.3), Hypertension, benign (401.1), Obstructive sleep apnea (327.23), Primary pulmonary hypertension (416.0), Asthma (493.90) [facility] On 20-Dec-2008 13:48 Office Visit - Obstructive sleep apnea ( 327.23), Primary pulmonary hypertension (416.0), Edema (782.3), Malaise and fatigue (780.79), Hypertension, benign (401.1), Hypercholesterolemia (272.0), Encounter for long-term (current) use of other medications (V58.69), Urinary incontinence (788.30) [facility] On 15-Dec-2008 10:50 Insurance * Valente Trujillo ; a guarantor * MedicareA115 * [employer] * MedicareB146 * [employer] Pt [employer] * [employer] * [employer] Primary Preferred Three Tier * [employer] Primary Preferred Three Tier * [facility] * [employer] [place] [employer] * 2014 * [employer] MED-D PDP LOW
--- OUTSIDE RECORDS SUMMARY | 2019-09-03 18:47 | XMS REPORT | Continuity of Care Document ---
Author Author [facility] Address [address] [place] [address] Phone Care Team Providers Care Product Safety Expert Name Role Phone Homar Clifton PP Katlin Berger Unavailable Abdullahi PERRY, Tuyet Unavailable Unavailable Ashley Kelsey Unavailable David Malcolm Unavailable Unavailable Leela LAUGHLINNRubia Unavailable Ofelia MATUTE, Nneka Unavailable Unavailable Unavailable [...] Hemanth Meza MD* Start 18-Jul-2013 Active [place], [id number]/GM (External Powder) 1 (one) application application two times daily until clear for 0 days * Quantity: 1 {Applicator} Refills: 0 Ordered: Homar Clifton Kali * Start 15-Jan-2015 Active Comments: Called to Avinash myers [facility]--she will order from [employer].--01/15/15 Khushi OXYBUTYNIN CHLORIDE, 5MG (Oral Tablet) 1 [...] 08/09/13 Change to 360mg ER daily-[facility] HOLMAN DILTIAZEM HCL, 90MG (Oral [...] Flonase 50 MCG/ACT Nasal Suspension 2 (two) [place] daily for 10 days * Quantity: 1 {Bottle} Refills: 0 Ordered: Ashley Larry* Start End Inactive Flonase Allergy Relief 50 MCG/ACT Nasal Suspension 2 (two) [place] daily for 30 days * Quantity: 1 [...] shot Ordered:09-Jan-2017 IMMUNIZ ADMNIN, 1 VAC, SNGL/COMBO (60045) Completed:09-Jan-2017 INTRAMUSCULAR ADMINISTRATION OF HIGH DOS E SPLIT VIRUS PRESERVATIVE FREE INFLUENZA VACCINE (27242) Completed:09-Jan-2017 Follow up if no improvement or if symptoms worsen Ordered:September-2016 MRI BRAIN W/O CONTRAST (06135) Ordered:05-Feb-2016 IMMUNIZ ADMN, EA AD VAC SNGL/COMBO (36957) Ordered:31-Jan-20 16 PREVNAR 13 (36943) Completed: 6 Flu (Influenza) *: flu shot Ordered:31-Jan-2016 IMMUNIZ ADMNIN, 1 VAC, SNGL/COMBO (17046) Completed:31-Jan-2016 INTRAMUSCULAR ADMINISTRATION OF HIGH DOS E SPLIT VIRUS PRESERVATIVE FREE INFLUENZA VACCINE (30493) Completed:31-Jan-2016 MRI BRAIN W/O CONTRAST (37099) Ordered:10-Jan-2016 Flu (Influenza) *: flu shot Ordered:16-Jan-2015 IMMUNIZ ADMNIN, 1 VAC, SNGL/COMBO (41541) Completed:16-Jan-2015 INTRAMUSCULAR ADMINISTRATION OF HIGH DOS E SPLIT VIRUS PRESERVATIVE FREE INFLUENZA VACCINE (74947) Completed:16-Jan-2015 Follow up in 2 months Ordered:01-Feb-2014 IMMUNIZATION ADMIN (23278) Completed:Jan-2014 PNEUMOCOCCAL VACCINE (08668) Completed:2 11-Jan-2014 Flu (Influenza) *: flu shot Ordered:31-Jan-2014 IMMUNIZATION ADMIN (92893) Completed:Jan-2014 FLU VACCINE NO PRSV QUADRAVALENT 3 YRS+ (14592) Completed:31-Jan-2014 FOLLOW UP BY PCP Ordered:08-May-2011 IMMUNIZ ADMNIN, 1 VAC, SNGL/COMBO (11237) Ordered: 9 TDAP VACCINE IM, >7 YEARS (90914) Ordered:20-Dec-2008 Gallbladder Surgery - Laparoscopic Surgeries Comments: all 4 wis dom teeth removed in 1983 in [facility]; lap cholecystectomy ; vasectomy in 1988; open prostatectomy attempt by [facility] in 2005 but due to fear of cutting nerves, they backed off on removing the prostate. Vasectomy Immunization Name Dates Details Influenza (3 years and up) Lot #: [id number] Administered on:13-Jan-2012 Comments: Site: Deltoid ( Left); Given at [facility] by Sherri PERRY Influenza (3 years and up) Lot #: [id number] Administered on:28-Dec-2012 Comments: Site: Deltoid (Right) Influenza, preserv. free, enhanced immun ogncty, IM Lot #: [id number] Administered on:16-Jan-2015 Comments: Site: Deltoid (Right) Influenza, preserv. free, enhanced immun ogncty, IM Lot #: [id number] Administered on:31-Jan-2016 Comments: Site: Deltoid (Left) Influenza, preserv. free, enhanced immun ogncty, IM Lot #: [id number] Administered on:09-Jan-2017 Comments: Site: Deltoid ( Left) Pneumococcal (2 years and up) Lot #: [id number] Administered on:19-Jan-2014 Comments: Site: Deltoid (Right); Admin by Antoinette Sheets RN Pneumococcal conjugate vaccine, 13 floresita t, IM Lot #: [id number] Administered on:31-Jan-2016 Comments: Site: Deltoid (Right) Quadrivalent Influenza Vaccine for 3 yrs & up. Lot #: [id number] Administered on:19-Jan-2014 Comments: Site: Deltoid (Left); Admin by Antoinette Messer (7 years and up) Lot #: [id number] Administered on:20-Dec-2008 Comments: Site: Deltoid (Left) Family [...] Disabili ty. 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 Comments: [facility] Status: Active Vital Signs Date Test Result [...] 1 Treatment Plan * BASIC METABOLIC PANEL (52495); Ordered: 07/17/2015 * PSA (Medicare) (G0103); Ordered: 07/17/2015 * THEODORE CULTURE-URINE (12638); Ordered: 07/04/2013 * Chem 8 BMP (57770); Ordered: 12/24/2012; Note: STANDING ORDER * CBC (18031); Ordered: 12/21/2012 * Chem 8 BMP (73482); Ordered: 12/21/2012 * VITAMIN D 25 (CALCIFEROL)(66709); Ordered: 05/31/2012 * CBC (86224); Ordered: 01/09/2012 * URINALYSIS, (67182); Ordered: 01/09/2012 * THEODORE CULTURE-URINE (58176); Ordered: 01/09/2012 * BASIC METABOLIC PANEL,BMP (88430); Ordered: 10/31/2011; Note: STANDING ORDER * PHOSPHORUS (68985); Ordered: 10/31/2011 * MAGNESIUM (88243); Ordered: 10/31/2011 * VANCOMYCIN, TROUGH (95280); Ordered: 10/27/2011; Note: STANDING ORDER-Do as directed by the pharmacist. * Chem 8 BMP (57531); Ordered: 10/27/2011; Note: STANDING ORDER * Chem 8 BMP (46661); Ordered: 09/23/2011 * IRON PROFILE*; Ordered: 05/29/2011 * HGB A1C (15041); Ordered: 05/29/2011 * LIPID PANEL (81037); Ordered: 05/28/2011 * PSA (PROSTATE SPECIFIC ANTIGEN) (93870); Ordered: 05/28/2011 * METABOLIC PANEL, BASIC (29422); Ordered: 05/28/2011 * LIVER FUNCTION PANEL* (43259); Ordered: 05/28/2011 * VITAMIN B-12 (CYANOCOBALAMIN) (95108); Ordered: 05/28/2011 * TSH (THYROID STIMULATING HORMONE) (80911); Ordered: 05/28/2011 * VITAMIN D 25 (CALCIFEROL)(68162); Ordered: 05/28/2011 * MAGNESIUM (90681); Ordered: 05/28/2011 * EKG (60793); Ordered: 05/28/2011 * CBC & PLATELETS (AUTO) (56143); Ordered: 05/28/2011 * LIVER FUNCTION PANEL* (12429); Ordered: 01/16/2010 * CBC (11786); Ordered: 01/16/2010 * LIPID PANEL (60825); Ordered: 01/16/2010 * BASIC METABOLIC PANEL,BMP (69718); Ordered: 01/16/2010 * BASIC METABOLIC PANEL,BMP (70033); Ordered: 01/19/2009 * BASIC METABOLIC PANEL,BMP (69448); Ordered: 12/20/2008 * TSH (THYROID STIMULATING HORMONE) (85473); Ordered: 12/15/2008 * VITAMIN D, 25 (CALCIFEROL) (02096); Ordered: 12/15/2008 * CBC (86661); Ordered: 12/15/2008 * BASIC METABOLIC PANEL,BMP (22801); Ordered: 12/15/2008 * LIVER FUNCTION PANEL* (86169); Ordered: 12/15/2008 * LIPID PANEL (58397); Ordered: 12/15/2008 Advance Directives * Consent of Care Agreement - Effective on 01/25/2016. Expiration date unspecified. Scanned Document is available upon request. Effective: 25-Jan-2016 Encounters Nurse visit (Non-Billable) - FLU VACCINE - HIGH DOSE (Renamed from NEED FOR IMMUNIZATION AGAINST INFLUENZA) (V04.81 | Z23) [facility] On 09-Jan-2017 17:53 to 17:54 Office Visit - COMMON COLD VIRUS (460 | J00) Encounter Reason: Sinusitis - Symptoms include nasal congestion, postnasal drainage, forehead pressure and cough. Onset was sudden 1 day(s) ago. The symptoms occur constantly. The patient describes this as moderate in severity and worsening. Associated symptoms include chills and sore throat.[facility] to Office Visit - ACUTE MAXILLARY SINUSITIS (461.0 | J01.00) Encounter Reason: Sinus Congestion - Symptoms include clear rhinorrhea, cheek pain, cheek pressure and cough, while symptoms do not include ear pain or headache. Onset was 4 day(s) ago. Note for "Sinusitis": pt having sinus pain and c/o eye pressure. [facility]-May-2016 to 20-May-2016 Office Visit - BENIGN [...] has had this dressing on for one week.[facility] 05-Feb-2016 to 08-Feb-2016 Nurse Visit - FLU VACCINE - HIGH DOSE (R enamed from NEED FOR IMMUNIZATION AGAINST INFLUENZA) (V04.81 | Z23), PREVNAR 13 (Renamed from NEED FOR VACCINATION WITH 13-POLYVALENT PNEUMOCOCCAL CONJUGATE VACCINE) (V03.82 | Z23) [facility] On 31-Jan-2016 18:14 to 18:16 [...] it. after taking bath, scab fell off. [facility] On 25-Jan-2016 11:30 to 13:42 Annotation/Addendum - SCHIZOPHRENIA (295 .90 | F20.9) [facility] On 10-Jan-2016 15:30 to 15:38 [...] | K59.09), Hypokalemia (276.8) (276.8 | E87.6) [facility] 17-Jul-2015 to 01-Aug-2015 Nurse Visit - FLU VACCINE - HIGH DOSE (R enamed from NEED FOR IMMUNIZATION AGAINST INFLUENZA) (V04.81 | Z23) [facility] On 16-Jan-2015 17:35 to 17:37 Medication Note - OBESITY, MORBID (278.0 1 | E66.01) [facility] On 15-Jan-2015 14:58 to 16:31 Office Visit - Edema (782.3) (782.3 | R6 0.9), URINARY FREQUENCY (788.41 | R35.0) Encounter Reason: General Exam, Follow Up - Note for "Follow up general exam": Pt here from [facility] for 60 day check up. no concerns.[facility] 01-Feb-2014 to 03-Feb-2014 Nurse visit (Non-Billable) - Pneumococca l vaccination (V03.82) 5 years + [facility] On 31-Jan-2014 17:21 to 17:23 Nurse visit (Non-Billable) - FLU VACCINE - QUADRAVALENT (Renamed from NEED FOR IMMUNIZATION AGAINST INFLUENZA) (V04.81 | Z23) [facility] On 31-Jan-2014 16:06 to 16:27 Medication Note - HYPERTENSION (401.9 | I10) [facility] On 24-Aug-2013 12:17 to 15:01 [...] for "General - Male": Pt lives at [facility]. No chest pain or shortness of air. Pt has hx of prostate cancer. Is currently in treatment. Never had screening colonoscopy. No family history of colon cancer. No blood in stools.[facility] 11-Aug-2013 to 18-Aug-2013 Annotation/Addendum - Unspecified Diagno sis [facility] On 04-Jul-2013 11:55 to 11:58 Office Visit - Obstructive sleep apnea ( 327.23), Chronic atrial fibrillation (Renamed from Atrial fibrillation, chronic) (427.31 | I48.2), Hypertension, benign (401.1), Edema (782.3) (782.3 | R60.9) Encounter Reason[facility] 22-Feb-2013 15:29 to 15:54 Office Visit - Edema (782.3), Obstructiv e sleep apnea (327.23), Hypertension, benign (401.1), Chronic atrial fibrillation (427.31) Encounter Reason: [facility] 25-Jan-2013 to 03-Feb-2013 Office Visit - Edema (782.3), Obstructiv e sleep apnea (327.23), Hypertension, benign (401.1), Renal insufficiency (593.9) Encounter Reason: [facility]itis[facility] 12-Jan-2013 to 18-Jan-2013 Office Visit - Edema (782.3), Heart fail ure, right (428.0), Obstructive sleep apnea (327.23) Encounter Reason: [facility] 29-Dec-2012 to 04-Jan-2013 Office Visit - Cellulitis and abscess of leg (682.6), Heart failure, right (428.0), Edema (782.3) Encounter Reason: [facility] 24-Dec-2012 15:42 to 16:19 Office Visit - Cellulitis and abscess of leg (682.6), Heart failure, right (428.0), Edema (782.3) Encounter Reason: Cellulitis - The last clinic visit was 1 week(s) ago. Symptoms include swelling, tenderness and drainage. Symptoms are located on the right leg. The symptoms occur constantly. The patient describes this as worsening. [facility] 21-Dec-2012 to 22-Dec-2012 Medication Note - ANXIETY AND DEPRESSION (300.4) [facility] On 07-Dec-2012 13:57 to 14:02 Medication Note - Delusional disorder (2 97.1) [facility] On 25-Nov-2012 15:07 to 16:36 Office Visit - Chronic atrial fibrillati on (427.31), Obstructive sleep apnea (327.23), Delusional disorder (297.1) [facility] to Office Visit - Hypertension, benign (401 .1), Chronic atrial fibrillation (427.31), Obstructive sleep apnea (327.23), Delusional disorder (297.1) Encounter Reason: Medication Review/Refill - Note for "Medication Review/Refill": [facility] Med[facility] Note - Hypertension, benign ( 401.1) [facility] On 29-Jun-2012 15:53 to 15:54 Annotation/Addendum - Vitamin B 12 defic iency (266.2) [facility] 22-Jun-2012 to 23-Jun-2012 Annotation/Addendum - Heart failure, rig ht (428.0) [facility] On 07-Jun-2012 13:12 to 22:44 Annotation/Addendum - Vitamin D deficien cy (268.9) [facility] 31-May-2012 to 01-Jun-2012 Annotation/Addendum - Hypokalemia (276.8 ) [facility] On 16-Mar-2012 10:49 to 10:50 Medication Note - Chronic atrial fibrill ation (427.31) [facility] On 30-Jan-2012 11:29 to 11:31 Annotation/Addendum [facility] On 19-Jan-2012 12:00 to 12:03 Annotation/Addendum - Hematuria (599.70) [facility] On 09-Jan-2012 15:02 to 15:42 Annotation/Addendum - Edema (782.3) [facility] On 25-Nov-2011 12:08 to 12:09 Office Visit - Fibrillation, atrial (427 .31), Edema (782.3), Obstructive sleep apnea (327.23), Hypertension, benign (401.1), Type II diabetes mellitus (250.00) [facility] 18-Nov-2011 to 19-Nov-2011 Office Visit - Edema (782.3), Cellulitis and abscess of leg (682.6), Obstructive sleep apnea (327.23), Fibrillation, atrial (427.31), Stasis dermatitis (454.1), Conjunctivitis NOS (372.30) [facility] 05-Nov-2011 to 06-Nov-2011 Office Visit - Cellulitis and abscess of leg (682.6), Chronic kidney disease, stage III (moderate) (585.3), Edema (782.3), Obstructive sleep apnea (327.23), Hypertension, benign (401.1), Fibrillation, atrial (427.31), Encounter for long- term (current) use of other medications (V58.69) [facility] to Office Visit - Edema (782.3), Cellulitis and abscess of leg (682.6), Stasis dermatitis (454.1), Chronic kidney disease, stage III (moderate) (585.3), Encounter for long-term (current) use of other medications (V58.69), 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) Encounter Reason: Ankle Swelling - Patient has had swelling in bilateral feet and ankles with rednessand abdomen has some redness to it alsoGoAt[facility] to Annotation/Addendum - Chronic kidney dis ease, stage III (moderate) (585.3) [facility] On 11:38 to 11:41 Annotation/Addendum - Renal failure (ARF ), acute on chronic (584.9) [facility] On 12:57 to 12:58 Office Visit - Fibrillation, atrial (427 .31), Type II diabetes mellitus (250.00), Obstructive sleep apnea (327.23), Hypertension, benign (401.1) [facility] to Annotation/Addendum [facility] On 12:43 to 12:54 Office Visit - Type II diabetes mellitus (250.00), Fibrillation, atrial (427.31), Hypertension, benign (401.1), Obstructive sleep apnea (327.23) [facility] to Medication Note - Unspecified Diagnosis [facility] On 22-Jul-2011 10:19 to 10:27 Annotation/Addendum - Type II diabetes m janell (250.00), Iron deficiency anemia (280.9) [facility] On 29-May-2011 13:55 to 13:58 Office Visit - Fibrillation, atrial (427 .31) [facility] On 28-May-2011 13:17 to 13:41 Office Visit - Hypertension, benign (401 .1), Primary pulmonary hypertension (416.0), Obstructive sleep apnea (327.23), Edema (782.3), Fibrillation, atrial (427.31), Encounter for long-term (current) use of other medications (V58.69), Magnesium deficiency (275.2), Osteomalacia (268.2), Malaise and fatigue (780.79), Benign prostatic hypertrophy with urinary retention (600.01), CA of prostate (185), Hypercholesterolemia (272.0) [facility] 28-May-2011 to 29-May-2011 Annotation/Addendum [facility] On 20-May-2011 11:13 to 11:14 [...] Associated symptoms include leg pain and edema. [facility] On 16-May-2011 12:42 to 13:20 [...] and talking. Symptoms are relieved by sitting up.[facility] 08-May-2011 to 09-May-2011 Office Visit [...] patient cannot control the flow of urine. [facility] On 16-Jan-2010 16:29 to 16:44 Office Visit - Edema (782.3), Hypertensi on, benign (401.1), Obstructive sleep apnea (327.23), Primary pulmonary hypertension (416.0), Asthma (493.90) [facility] On 19-Jan-2009 11:37 to 12:11 Office Visit - Need for prophylactic vac cination and inoculation against combinations of disease (V06.8), Edema (782.3), Hypertension, benign (401.1), Obstructive sleep apnea (327.23), Primary pulmonary hypertension (416.0), Asthma (493.90) [facility] On 20-Dec-2008 15:48 to 16:19 Office Visit - Obstructive sleep apnea ( 327.23), Primary pulmonary hypertension (416.0), Edema (782.3), Malaise and fatigue (780.79), Hypertension, benign (401.1), Hypercholesterolemia (272.0), Encounter for long-term (current) use of other medications (V58.69), Urinary incontinence (788.30) [facility] On 15-Dec-2008 12:50 to 13:16 Insurance * Valente Trujillo ; johanne guarantor * MedicareA115 * [employer] * MedicareB146 * Blue Cross [place] [employer] * [employer] * [employer] Primary Preferred Three Tier * [employer] Primary Preferred Three Tier * [address] * [facility] * 2014 EMANUEL * NORAH MED-D PDP LOW
--- OUTSIDE RECORDS SUMMARY | 2019-09-03 18:48 | XMS REPORT | Continuity of Care Document ---
Author Author [facility] Address [address] [place] [address] Phone Care Team Providers Care Mechanical System Technician Name Role Phone Younger Hemanth SEGOVIA PP Rubia Swenson LPN Unavailable Josh Horton DOHomar Unavailable [phone] Mau Pereira Unavailable Unavailable Ethel Orozco CMA Unavailable Unavailable History of Present Illness No [...] Status: Active DEPRESSION (311, F32.9) Status: Active Edema (782.3, R60.9) Status: Active Encounter for long-term use of other me dications (V58.69) (V58.69, Z79.899) Status: Active ENCOUNTER FOR SCREENING COLONOSCOPY (V76 .51, Z12.11) Status: Active Fibrillation, atrial (427.31) Status: Active Allergy to Flomax *GENITOURINARY AGENTS - MISCELLANEOUS* (Renamed from Flomax *GENITOURINARY AGENTS - MISCELLANEOUS*) Status: Active Heart failure, right (428.0) Status: Active Hematuria (599.70, R31.9) Status: Active Hypercholesterolemia (272.0, E78.0) Status: Active HYPERLIPIDEMIA (272.4, E78.5) Status: Active HYPERTENSION (401.9, I10) Status: Active Hypertension, benign (401.1) Status: Active Hypokalemia (276.8, E87.6) Status: Active Iron deficiency anemia (280.9, D50.9) Status: Active Magnesium deficiency (275.2, E61.2) Status: Active Malaise and fatigue (780.79, R53.81) Status: Active Need for prophylactic vaccination and in oculation against combinations of disease (V06.8) Status: Active 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 Obesity (278.00, E66.9) Status: Active OBESITY, MORBID (278.01, E66.01) Status: Active Obstructive sleep apnea (327.23) Status: [...] Quantity: 30 Ordered :25-Apr-2013 Hemanth Murray MD, Hemanth SEGOVIA* Started 25-Apr-2013 Active Comments: for delusional disorder AMOXICILLIN, 500MG (Oral Capsule) 1 Capsule three times daily for 10 days * Quantity: 30 Refills: 0 Ordered :11-Aug-2013 Rubia Swenson LPN* Started 08-May-2011 ActiveATORVASTATIN CALCIUM, 40MG (Oral Tablet) 1 Tablet at bedtime for 30 days * Quantity: 30 Refills: 12 Ordered :21-Jun-2013 Hemanth Murray MD, Hemanth SEGOVIA* Started 21-Jun-2013 Active Comments: for hypercholesterolemia CYANOCOBALAMIN, 1000MCG/ML (Injection Solution) 1 Solution use as directed every day for 7 days for 30 days * Quantity: 0 Refills: 12 Ordered : Hemanth Murray MD, Hemanth SEGOVIA* Started 22-Jun-2012 ActiveDETROL LA, 4MG (Oral Capsule [...] Change to 360mg ER daily[facility] ESCITALOPRAM OXALATE, 20MG (Oral Tablet) 1 [...] days * Quantity: 60 Refills: 4 Ordered :19-Aug-2013 Hemanth Murray MD, David MD* Started 19-Aug-2013 Active Comments: for hypertension MIRTAZAPINE, 15MG (Oral [...] MD, David MD* Started 28-May-2011 Ended 27-Jun-2011 InactiveASPIRIN, 81MG (Oral Tablet) - Historical Medication one daily * Started 20-Dec-2008 Inactive Comments: to prevent strokes and heart attacks BUMETANIDE, 2MG (Oral Tablet) 2 (two) Tablet two times daily for 30 days * Quantity: 120 Refills: 0 Ordered :28-Jun-2011 Hemanth Murray MD, Hemanth SEGOVIA* Started 28-May-2011 Ended 27-Jun-2011 InactiveCPAP - Historical [...] MD, David MD* Started 28-May-2011 Ended 27-Jun-2011 InactiveMIRALAX (Oral [...] Hemanth Murray MD, David MD* Started Ended InactiveSUDAFED PE MAXIMUM STRENGTH, 10MG (Oral Tablet) - Historical Medication 1 every four hours, as needed Inactive Comments: Medication taken as needed. TOBRAMYCIN [...] (Oral Tablet) - Historical Medication one daily Inactive Comments: to prevent strokes with atrial fibrillation Allergies and Adverse Reactions Name Dates Details NKDA (Renamed from Aspirin *ANALGESICS - NonNarcotic*) Status: Active Past Medical History Name Dates Details Surgeries Comments: all 4 wisdom teet h removed in 1983 in [facility]; lap cholecystectomy 197; vasectomy in 1988; open prostatectomy attempt by [facility] in 2005 but due to fear of cutting nerves, they backed off on removing the prostate. Status: Active Procedures Procedure Dates Details FOLLOW UP BY PCP Ordered:08-May-2011 IMMUNIZ ADMNIN, 1 VAC, SNGL/COMBO (02961) Ordered: 9 TDAP VACCINE IM, >7 YEARS (48867) Ordered:20-Dec-2008 Immunization Name Dates Details Influenza (3 years and up) Lot #: [id number] Administered on:13-Jan-2012 Comments: Site: Deltoid (L eft); Given at [facility] by Sherri PERRY Influenza (3 years and up) Lot #: [id number] Administered on:28-Dec-2012 Comments: Site: Deltoid ( Right) Tdap (7 years and up) Lot #: [id number] Administered on:20-Dec-2008 Comments: Site: Deltoid ( Left) [...] status Comments: Most Recent 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 @ [employer] No Drug Use Non Smoker/No Tobacco [...] DAY 1 Treatment Plan * THEODORE CULTURE-URINE (60135); Ordered: 07/04/2013 * Chem 8 BMP (08608); Ordered: 12/24/2012; Note: STANDING ORDER * CBC (17402); Ordered: 12/21/2012 * Chem 8 BMP (73080); Ordered: 12/21/2012 * VITAMIN D 25 (CALCIFEROL)(23904); Ordered: 05/31/2012 * CBC (35322); Ordered: 01/09/2012 * URINALYSIS, (78509); Ordered: 01/09/2012 * THEODORE CULTURE-URINE (02046); Ordered: 01/09/2012 * BASIC METABOLIC PANEL,BMP (01842); Ordered: 10/31/2011; Note: STANDING ORDER * PHOSPHORUS (09924); Ordered: 10/31/2011 * MAGNESIUM (99284); Ordered: 10/31/2011 * VANCOMYCIN, TROUGH (73268); Ordered: 10/27/2011; Note: STANDING ORDER-Do as directed by the pharmacist. * Chem 8 BMP (83540); Ordered: 10/27/2011; Note: STANDING ORDER * Chem 8 BMP (99477); Ordered: 09/23/2011 * IRON PROFILE*; Ordered: 05/29/2011 * HGB A1C (18673); Ordered: 05/29/2011 * LIPID PANEL (56796); Ordered: 05/28/2011 * PSA (PROSTATE SPECIFIC ANTIGEN) (67436); Ordered: 05/28/2011 * METABOLIC PANEL, BASIC (64065); Ordered: 05/28/2011 * LIVER FUNCTION PANEL* (51353); Ordered: 05/28/2011 * VITAMIN B-12 (CYANOCOBALAMIN) (01230); Ordered: 05/28/2011 * TSH (THYROID STIMULATING HORMONE) (41707); Ordered: 05/28/2011 * VITAMIN D 25 (CALCIFEROL)(62010); Ordered: 05/28/2011 * MAGNESIUM (37156); Ordered: 05/28/2011 * EKG (38502); Ordered: 05/28/2011 * CBC & PLATELETS (AUTO) (05443); Ordered: 05/28/2011 * LIVER FUNCTION PANEL* (33451); Ordered: 01/16/2010 * CBC (48192); Ordered: 01/16/2010 * LIPID PANEL (58626); Ordered: 01/16/2010 * BASIC METABOLIC PANEL,BMP (86440); Ordered: 01/16/2010 * BASIC METABOLIC PANEL,BMP (04252); Ordered: 01/19/2009 * BASIC METABOLIC PANEL,BMP (91973); Ordered: 12/20/2008 * TSH (THYROID STIMULATING HORMONE) (01586); Ordered: 12/15/2008 * VITAMIN D, 25 (CALCIFEROL) (91760); Ordered: 12/15/2008 * CBC (51201); Ordered: 12/15/2008 * BASIC METABOLIC PANEL,BMP (76285); Ordered: 12/15/2008 * LIVER FUNCTION PANEL* (86414); Ordered: 12/15/2008 * LIPID PANEL (05069); Ordered: 12/15/2008 Advance Directives No Advance Directives available. Encounters Office Visit - Chronic atrial fibrillati on [...] history of colon cancer. No blood in stools.[facility] On 11-Aug-2013 10:54 Annotation/Addendum - Unspecified Diagno sis [facility] On 04-Jul-2013 09:55 Office Visit - Obstructive sleep apnea, Chronic atrial fibrillation (Renamed from Atrial fibrillation, chronic) (427.31 | I48.2), Hypertension, benign, Edema (782.3 | R60.9) Encounter Reason[facility] 22-Feb-2013 13:29 Office Visit - Edema, Obstructive sleep apnea, Hypertension, benign, Chronic atrial fibrillation Encounter Reason: Review [facility]Former[facility] 25-Jan-2013 13:25 Office Visit - Edema, Obstructive sleep apnea, Hypertension, benign, Renal insufficiency Encounter Reason: Cellul[facility] 12-Jan-2013 13:24 Office Visit - Edema, Heart failure, rig ht, Obstructive sleep apnea Encounter Reason: [facility] On 29-Dec-2012 13:26 Office Visit - Cellulitis and abscess of leg, Heart failure, right, Edema Encounter Reason: [facility] On 24-Dec-2012 13:42 Office Visit - Cellulitis and abscess of leg, Heart failure, right, Edema Encounter Reason: Cellulitis - The last clinic visit was 1 week(s) ago. Symptoms include swelling, tenderness and drainage. Symptoms are located on the right leg. The symptoms occur constantly. The patient describes this as worsening. [facility] On 21-Dec-2012 13:38 Medication Note - ANXIETY AND DEPRESSION [facility] On 07-Dec-2012 11:57 Medication Note - Delusional disorder [facility] On 25-Nov-2012 13:07 Office Visit - Chronic atrial fibrillati on, Obstructive sleep apnea, Delusional disorder [facility] On 10:19 Office Visit - Hypertension, benign, Chr onic atrial fibrillation, Obstructive sleep apnea, Delusional disorder Encounter Reason: Medication Review/Refill - Note for "Medication Review/Refill": Suzan dose reductionFormerly [facility] On 10:37 Medication Note - Hypertension, benign [facility] On 29-Jun-2012 13:53 Annotation/Addendum - Vitamin B 12 defic iency [facility] On 22-Jun-2012 17:11 Annotation/Addendum - Heart failure, rig ht [facility] On 07-Jun-2012 11:12 Annotation/Addendum - Vitamin D deficien cy [facility] On 31-May-2012 16:31 Annotation/Addendum - Hypokalemia [facility] On 16-Mar-2012 08:49 Medication Note - Chronic atrial fibrill ation [facility] On 30-Jan-2012 09:29 Annotation/Addendum [facility] On 19-Jan-2012 10:00 Annotation/Addendum - Hematuria [facility] On 09-Jan-2012 13:02 Annotation/Addendum - Edema [facility] On 25-Nov-2011 10:08 Office Visit - Fibrillation, atrial, Troy aguilar, Obstructive sleep apnea, Hypertension, benign, Type II diabetes mellitus [facility] On 18-Nov-2011 09:35 Office Visit - Edema, Cellulitis and abs cess of leg, Obstructive sleep apnea, Fibrillation, atrial, Stasis dermatitis, Conjunctivitis NOS [facility] On 05-Nov-2011 09:41 Office Visit - Cellulitis and abscess of leg, Chronic kidney disease, stage III (585.3), Edema, Obstructive sleep apnea, Hypertension, benign, Fibrillation, atrial, Encounter for long-term use of other medications (V58.69) [facility] On 10:35 Office Visit - Edema, Cellulitis and abs cess of leg, Stasis dermatitis, Chronic kidney disease, stage III (585.3), Encounter for long-term use of other medications (V58.69), Noninfectious lymphedema Encounter Reason: Ankle Swelling - Patient has had swelling in bilateral feet and ankles with rednessand abdomen has some [facility] to [facility] 10:18 Annotation/Addendum - Chronic kidney dis ease, stage III (585.3) [facility] On 09:38 Annotation/Addendum - Renal failure , ac arthur on chronic (584.9) [facility] On 10:57 Office Visit - Fibrillation, atrial, Typ e II diabetes mellitus, Obstructive sleep apnea, Hypertension, benign [facility] On 09:52 Annotation/Addendum [facility] On 10:43 Office Visit - Type II diabetes mellitus , Fibrillation, atrial, Hypertension, benign, Obstructive sleep apnea [facility] On 10:34 Medication Note - Unspecified Diagnosis [facility] On 22-Jul-2011 08:19 Annotation/Addendum - Type II diabetes m janell, Iron deficiency anemia [facility] On 29-May-2011 11:55 Office Visit - Fibrillation, atrial [facility] On 28-May-2011 11:17 Office Visit - Hypertension, benign, Danelle maliha pulmonary hypertension, Obstructive sleep apnea, Edema, Fibrillation, atrial, Encounter for long-term use of other medications (V58.69), Magnesium deficiency, Osteomalacia, Malaise and fatigue, Benign prostatic hypertrophy with urinary retention, CA of prostate, Hypercholesterolemia [facility] On 28-May-2011 11:01 Annotation/Addendum [facility] On 20-May-2011 09:13 Office Visit-Pre Admission - Edema, Hype rtension, benign, Shortness of breath, Primary pulmonary hypertension, Obstructive sleep apnea, Heart failure, right Encounter Reason: Shortness of Breath - Symptoms include exercise intolerance, fatigue and cough (in the am some times). Onset was sudden 3 week(s) ago. The patient describes this as mild. Associated symptoms include leg pain and edema. [facility] On 16-May-2011 10:42 Office Visit - Acute [...] and talking. Symptoms are relieved by sitting up.[facility] On 08-May-2011 08:38 Office Visit - Hypertension, [...] patient cannot control the flow of urine. [facility] On 16-Jan-2010 14:29 Office Visit - Edema, Hypertension, sandoval gn, Obstructive sleep apnea, Primary pulmonary hypertension, Asthma [facility] On 19-Jan-2009 09:37 Office Visit - Need for prophylactic vac cination and inoculation against combinations of disease, Edema, Hypertension, benign, Obstructive sleep apnea, Primary pulmonary hypertension, Asthma [facility] On 20-Dec-2008 13:48 Office Visit - Obstructive sleep apnea, Primary pulmonary hypertension, Edema, Malaise and fatigue, Hypertension, benign, Hypercholesterolemia, Encounter for long-term use of other medications (V58.69), Urinary incontinence [facility] On 15-Dec-2008 10:50
--- OUTSIDE RECORDS SUMMARY | 2019-09-03 18:48 | XMS REPORT | Continuity of Care Document ---
Author Author [facility] Address [address] [place] [address] Phone Care Team Providers Care Mottler Machine Feeder Name Role Phone Homar Clifton PP [phone] Katlin Berger Unavailable Abdullahi PERRY, Tuyet Unavailable Unavailable Ashley Kelsey Unavailable Cathryn LAUGHLINNEden Unavailable Unavailable David Malcolm Unavailable Unavailable Rubia Hebert LPN Unavailable Ofelia MATUTE, Nneka Unavailable Unavailable Unavailable [...] SCREENING COLONOSCOPY (V76 .51, Z12.11) Status: Active FEVER (780.60, R50.9) Status: Active FLU VACCINE - HIGH DOSE [...] bundle branch block (426.53, I45.2) Status: Active RIGHT LOWER LOBE PNEUMONIA (486, J18.1) Status: Active SCHIZOPHRENIA (295.90, F20.9) Status: Active SHINGLES (053.9, B02.9) Onset:1981 Status: Active Shortness of breath (786.05, R06.02) Status: Active SINUS PRESSURE (478.19, J34.89) Status: Active Stasis dermatitis (454.1, I83.10) Status: [...] Quantity: 30 {Capsule} Refills: 0 Ordered:11-Aug-2013 Rubia Hebert LPN* Start 08-May-2011 Active ATORVASTATIN CALCIUM, 40MG [...] * Quantity: 30 {Capsule_ER_24HR} Refills: 4 Ordered:11-Aug-2013 Rubia Hebert LPN* Start 16-Jan-2010 Active Comments: for urinary incontinence (OK to use generic) Digoxin 250mcg daily Active DILTIAZEM HCL CD, 360MG (Oral Capsule Extended Release 24 Hour) 1 (one) Capsule ER 24HR Capsule ER 24HR daily for 30 days * Quantity: 30 {Capsule} Refills: 5 Ordered:01-Feb-2014 Hemanth Meza MD* Start 24-Aug-2013 Active Comments: 08/09/13 Called to Jay at [facility] ESCITALOPRAM OXALATE, 20MG (Oral Tablet) 1 [...] Quantity: 60 {Tablet} Refills: 0 Ordered:01-Feb-2014 Homar Cliftonkhardt, Homar * Start 01-Feb-2014 Active Comments: for edema*40 mg at 7 am20 mg at 1 pm Levaquin 750 MG Oral Tablet 1 (one) tablet every other day for 8 days * Quantity: 4 {Tablet} Refills: 0 Ordered:23-Mar-2017 Homar Clifton Kali * Start 23-Mar-2017 Active LEXAPRO, 20MG (Oral Tablet) (20 MG) Active [...] Hemanth Meza MD* Start 18-Jul-2013 Active NYSTATIN, 594029OBER/GM (External Powder) 1 (one) application application two times daily until clear for 0 days * Quantity: 1 {Applicator} Refills: 0 Ordered:23-Mar-2017 Homar Clifton Kali * Start 15-Jan-2015 Active Comments: Called to Avinash myers [facility]--she will order from [facility].--01/15/15 [facility] OXYBUTYNIN CHLORIDE, 5MG (Oral Tablet) 1 Tablet [...] Quantity: 45 {Gram(s)} Refills: 6 Ordered:16-Aug-2013 Rubia Hebert LPN* Start 05-Nov-2011 Active Comments: for stasis [...] Quantity: 5 {For_Solution} Refills: 0 Ordered:21-Dec-2012 Rubia Hebert LPN* Start 21-Dec-2012 End 26-Dec-2012 Inactive Comments: for cellulitis of the right leg DIGOXIN, 0.125MG (Oral Tablet) 1/2 Tablet every other day for 30 days * Quantity: 15 {Tablet} Refills: 12 Ordered:27-Dec-2012 Rubia Hebert LPN* Start 07-Jun-2012 End 27-Dec-2012 Inactive DILTIAZEM HCL ER, 180MG (Oral Capsule Extended Release 24 Hour) 1 Capsule ER 24HR 380mg daily for 30 days * Quantity: 30 {Capsule} Refills: 6 Ordered:24-Aug-2013 Sara Jennings LPN* Start 09-Aug-2013 End 24-Aug-2013 Inactive Comments: 08/09/13 Change to 360mg ER daily-Notified Jay at [facility] DILTIAZEM HCL, 90MG (Oral Tablet) 1 Tablet [...] Meza MD* Start 22-Jul-2011 End 21-Aug-2011 Inactive Eliquis 5 MG Oral Tablet 1 (one) Tablet two times daily for 30 days * Quantity: 60 {Tablet} Refills: 0 Ordered:23-Mar-2017 Homar Clifton Kali * Start 09-Feb-2017 End 11-Mar-2017 Inactive Flonase 50 MCG/ACT Nasal Suspension 2 (two) Wesson daily for 10 days * Quantity: 1 {Bottle} Refills: 0 Ordered: Ashley Larry* Start End Inactive Flonase Allergy Relief 50 MCG/ACT Nasal Suspension 2 (two) Wesson daily for 30 days * Quantity: 1 [...] * Quantity: 8 {Capsule} Refills: 0 Ordered:31-May-2012 Rahda Handy MA* Start 31-May-2012 End 30-Jul-2012 Inactive XARELTO, 20MG (Oral Tablet) one daily (20 MG) Inactive Comments: to prevent strokes with atrial fibrillation Lisinopril 5 MG Oral Tablet 1 Tablet daily for 0 days * Quantity: 30 {Tablet} Refills: 6 Ordered:09-Feb-2017 Homar Clifton Kali * Start 09-Feb-2017 End 09-Feb-2017 Discontinued Xarelto 20 MG Oral Tablet 1 Tablet daily for 30 days * Quantity: 30 {Tablet} Refills: 12 Ordered:09-Feb-2017 Homar Clifton Kali * Start 09-Feb-2017 End 09-Feb-2017 Discontinued Comments: [...] R35.0) Status: Inactive Procedures Procedure Dates Details XR PARANASAL SINUSES, HWANG VIEW (74557) Ordered: 7 CHEST X-RAY, PA AND LATERAL (44673) Ordered:23-Mar-2017 Flu (Influenza) *: flu shot Ordered:09-Jan-2017 IMMUNIZ ADMNIN, 1 VAC, SNGL/COMBO (77328) Completed:09-Jan-2017 INTRAMUSCULAR ADMINISTRATION OF HIGH DOS E SPLIT VIRUS PRESERVATIVE FREE INFLUENZA VACCINE (68419) Completed:09-Jan-2017 Follow up if no improvement or if symptoms worsen Ordered:September-2016 MRI BRAIN W/O CONTRAST (39237) Ordered:05-Feb-2016 IMMUNIZ ADMN, EA AD VAC SNGL/COMBO (87297) Ordered:31-Jan-20 16 PREVNAR 13 (62478) Completed: 6 Flu (Influenza) *: flu shot Ordered:31-Jan-2016 IMMUNIZ ADMNIN, 1 VAC, SNGL/COMBO (26251) Completed:31-Jan-2016 INTRAMUSCULAR ADMINISTRATION OF HIGH DOS E SPLIT VIRUS PRESERVATIVE FREE INFLUENZA VACCINE (13348) Completed:31-Jan-2016 MRI BRAIN W/O CONTRAST (59137) Ordered:10-Jan-2016 Flu (Influenza) *: flu shot Ordered:16-Jan-2015 IMMUNIZ ADMNIN, 1 VAC, SNGL/COMBO (82412) Completed:16-Jan-2015 INTRAMUSCULAR ADMINISTRATION OF HIGH DOS E SPLIT VIRUS PRESERVATIVE FREE INFLUENZA VACCINE (71488) Completed:16-Jan-2015 Follow up in 2 months Ordered:01-Feb-2014 IMMUNIZATION ADMIN (18340) Completed:Jan-2014 PNEUMOCOCCAL VACCINE (60035) Completed:2 11-Jan-2014 Flu (Influenza) *: flu shot Ordered:31-Jan-2014 IMMUNIZATION ADMIN (62528) Completed:Jan-2014 FLU VACCINE NO PRSV QUADRAVALENT 3 YRS+ (64194) Completed:31-Jan-2014 FOLLOW UP BY PCP Ordered:08-May-2011 IMMUNIZ ADMNIN, 1 VAC, SNGL/COMBO (17919) Ordered: 9 TDAP VACCINE IM, >7 YEARS (63467) Ordered:20-Dec-2008 Gallbladder Surgery - Laparoscopic Surgeries Comments: all 4 wis dom teeth removed in 1983 in [facility]; lap cholecystectomy 197; vasectomy in 1988; open prostatectomy attempt by [facility] in 2005 but due to fear of cutting nerves, they backed off on removing the prostate. Vasectomy Immunization Name Dates Details Influenza (3 years and up) Lot #: [id number] Administered on:13-Jan-2012 Comments: Site: Deltoid ( Left); Given at [facility] by Sherri PERRY Influenza (3 years and up) Lot #: [id number] Administered on:28-Dec-2012 Comments: Site: Deltoid (Right) Influenza, preserv. free, enhanced immun ogncty, IM Lot #: [id number] Administered on:16-Jan-2015 Comments: Site: Deltoid (Right) Influenza, preserv. free, enhanced immun ogncty, IM Lot #: [id number] Administered on:31-Jan-2016 Comments: Site: Deltoid (Left) Influenza, preserv. free, enhanced immun ogncty, IM Lot #: [id number] Administered on:09-Jan-2017 Comments: Site: Deltoid ( Left) Pneumococcal (2 years and up) Lot #: [id number] Administered on:19-Jan-2014 Comments: Site: Deltoid (Right); Admin by Antoinette Sheets RN Pneumococcal conjugate vaccine, 13 floresita t, IM Lot #: [id number] Administered on:31-Jan-2016 Comments: Site: Deltoid (Right) Quadrivalent Influenza Vaccine for 3 yrs & up. 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 Comments: [facility] Status: Active Vital Signs Date Test Result Details 23-Mar-2017 16:15 Temperature 100.5 f Comments: Method: T ympanic Pulse 112 /min Comments: Pattern: Regular Respiration Rate 22 /min Comments: Pattern: Unlabored O2 SAT 98 % Comments: Room air BP Systolic 140 mm[Hg] Comments: Patient P osition: Sitting; Cuff Location: Left Arm; Cuff Size: Standard BP Diastolic 84 mm[Hg] Comments: Patient P osition: Sitting; Cuff Location: Left Arm; Cuff Size: Standard Weight 348.75 lb Height 69 in Body Mass Index Calculated 51.5 kg/m2 Body Surface Area Calculated 2.62 m2 12:27 Temperature 99 f Comments: Method: T [...] GROWTH @ DAY 1 Treatment Plan * Influenza A Ag (04663); Ordered: 03/23/2017; Note: A&B * BASIC METABOLIC PANEL (92031); Ordered: 07/17/2015 * PSA (Medicare) (G0103); Ordered: 07/17/2015 * THEODORE CULTURE-URINE (51398); Ordered: 07/04/2013 * Chem 8 BMP (06377); Ordered: 12/24/2012; Note: STANDING ORDER * CBC (66130); Ordered: 12/21/2012 * Chem 8 BMP (72766); Ordered: 12/21/2012 * VITAMIN D 25 (CALCIFEROL)(67406); Ordered: 05/31/2012 * CBC (66120); Ordered: 01/09/2012 * URINALYSIS, (70701); Ordered: 01/09/2012 * THEODORE CULTURE-URINE (15622); Ordered: 01/09/2012 * BASIC METABOLIC PANEL,BMP (51860); Ordered: 10/31/2011; Note: STANDING ORDER * PHOSPHORUS (12511); Ordered: 10/31/2011 * MAGNESIUM (73064); Ordered: 10/31/2011 * VANCOMYCIN, TROUGH (65978); Ordered: 10/27/2011; Note: STANDING ORDER-Do as directed by the pharmacist. * Chem 8 BMP (26816); Ordered: 10/27/2011; Note: STANDING ORDER * Chem 8 BMP (12735); Ordered: 09/23/2011 * IRON PROFILE*; Ordered: 05/29/2011 * HGB A1C (36473); Ordered: 05/29/2011 * LIPID PANEL (84019); Ordered: 05/28/2011 * PSA (PROSTATE SPECIFIC ANTIGEN) (39305); Ordered: 05/28/2011 * METABOLIC PANEL, BASIC (34511); Ordered: 05/28/2011 * LIVER FUNCTION PANEL* (47020); Ordered: 05/28/2011 * VITAMIN B-12 (CYANOCOBALAMIN) (91161); Ordered: 05/28/2011 * TSH (THYROID STIMULATING HORMONE) (69598); Ordered: 05/28/2011 * VITAMIN D 25 (CALCIFEROL)(00337); Ordered: 05/28/2011 * MAGNESIUM (26324); Ordered: 05/28/2011 * EKG (53300); Ordered: 05/28/2011 * CBC & PLATELETS (AUTO) (16937); Ordered: 05/28/2011 * LIVER FUNCTION PANEL* (09599); Ordered: 01/16/2010 * CBC (60170); Ordered: 01/16/2010 * LIPID PANEL (77686); Ordered: 01/16/2010 * BASIC METABOLIC PANEL,BMP (44291); Ordered: 01/16/2010 * BASIC METABOLIC PANEL,BMP (91735); Ordered: 01/19/2009 * BASIC METABOLIC PANEL,BMP (86869); Ordered: 12/20/2008 * TSH (THYROID STIMULATING HORMONE) (10317); Ordered: 12/15/2008 * VITAMIN D, 25 (CALCIFEROL) (13603); Ordered: 12/15/2008 * CBC (76728); Ordered: 12/15/2008 * BASIC METABOLIC PANEL,BMP (44829); Ordered: 12/15/2008 * LIVER FUNCTION PANEL* (15075); Ordered: 12/15/2008 * LIPID PANEL (40121); Ordered: 12/15/2008 Advance Directives * Consent of Care Agreement - Effective on 03/23/2017. Expiration date unspecified. Scanned Document is available upon request. Effective: 23-Mar-2017 Encounters Office Visit - FEVER (780.60 | R50.9), S INUS PRESSURE (478.19 | J34.89), RIGHT LOWER LOBE PNEUMONIA (486 | J18.1) Encounter Reason: Cold Symptoms - Symptoms include nasal congestion, runny nose and productive cough, while symptoms do not include sore throat. Onset was 3 day(s) ago. The patient describes this as mild and worsening. fever present. worse [facility] the last 3 [facility]Go[facility] 23-Mar-2017 to 24-Mar-2017 Medication Note - Chronic atrial fibrill ation [...] c/o eye pressure. [facility] 20[facility] Office Visit - [...] "Follow up general exam": Pt here from [facility] for 60 day check up. no concerns.[place] [...] for "General - Male": Pt lives at [facility]. No chest pain or shortness of air. [...] Edema (782.3) (782.3 | R60.9) Encounter Reason: [facility] On 22-Feb-2013 15:29 to 15:54 Office Visit - Edema (782.3), Obstructiv e sleep apnea (327.23), Hypertension, benign (401.1), Chronic atrial fibrillation (427.31) [facility] 03-Feb[facility]2013 Office Visit - Edema (782.3), Obstructiv e sleep apnea (327.23), Hypertension, benign (401.1), Renal insufficiency (593.9) Encounter Reason: [facility] 12-Jan-2013 to 18-Jan-2013 Office Visit - Edema (782.3), Heart fail ure, right (428.0), Obstructive sleep apnea (327.23) Encounter Reason: [facility] 29-Dec-2012 to 04-Jan-2013 Office Visit - Cellulitis and abscess of leg (682.6), Heart failure, right (428.0), Edema (782.3) Encounter Reason: [facility] On 24-Dec-2012 15:42 to 16:19 Office Visit [...] - Note for "Medication Review/Refill": Suzan dose reductionGoUNC [facility] to Medication Note - Hypertension, benign ( [...] has some redness to it alsoGoUNC Health [facility] to Annotation/Addendum - Chronic kidney dis ease, [...] [place] ; johanne guarantor * MedicareA115 * [facility] * MedicareB146 * [facility] * [facility]
--- OUTSIDE RECORDS SUMMARY | 2019-09-03 18:48 | XMS REPORT | Continuity of Care Document ---
Author Author [facility] Nadanu [facility] Address [address] [place] [address] Phone Care Team Providers Care Kitchenhand Name Role Phone Younger Hemanth SEGOVIA PP [...] disorder Acetylcysteine - Historical Medication 500mg daily ActiveASPIRIN, 81MG (Oral Tablet) - Historical Medication one daily * Started 16-Sep-2009 Active Comments: to prevent strokes and heart [...] Refills: 6 Ordered :09-Aug-2013 Hemanth Murray MD, David MD* Started 09-Aug-2013 Active Comments: 08/09/13 [facility] OXAL[facility], 20MG (Oral Tablet) 1 Tablet daily for 30 days * Quantity: 30 Refills: 5 Ordered :15-Jul-2013 Hemanth Murray MD, David MD* Started 15-Jul-2013 Active Comments: for depression FAMOTIDINE, 20MG (Oral Tablet) 1 Tablet two times daily for 30 days * Quantity: 60 Refills: 5 Ordered :01-Aug-2013 Hemanth Murray MD, Hemanth SEGOVIA* Started 01-Aug-2013 Active Comments: for acid FUROSEMIDE, [...] Refills: 12 Ordered :24-Dec-2012 Hemanth Murray MD, Hemanth SEGOVIA* Started 24-Dec-2012 ActiveMIRALAX (Oral Packet) - Historical [...] Comments: to prevent strokes with atrial fibrillation AMOXICILLIN, 500MG (Oral Capsule) 1 Capsule three times daily for 10 days * Quantity: 30 Refills: 0 Ordered :11-Aug-2013 Homar Clifton * Started 08-May-2011 Ended 11-Aug-2013 InactiveASPIRIN EC, 81MG (Oral Tablet Delayed Release) [address] daily for 30 days * Quantity: 30 Refills: 0 Ordered :28-Jun-2011 Hemanth Murray MD, David MD* Started 28-May-2011 Ended 27-Jun-2011 InactiveBUMETANIDE, 2MG (Oral Tablet) 2 (two) Tablet two times daily for 30 days * Quantity: 120 Refills: 0 Ordered :28-Jun-2011 Hemanth Murray MD, David MD* Started 28-May-2011 Ended 27-Jun-2011 InactiveCPAP - [...] wisdom teet h removed in 1983 in [facility]; lap cholecystectomy 197; vasectomy in 1988; open prostatectomy attempt by [facility] in 2005 but due to fear of cutting nerves, they backed off on removing the prostate. Status: Active Procedures Procedure Dates Details FOLLOW UP BY PCP Ordered:08-May-2011 IMMUNIZ ADMNIN, 1 VAC, SNGL/COMBO (03123) Ordered: 9 TDAP VACCINE IM, >7 YEARS (75303) Ordered:20-Dec-2008 Immunization Name Dates Details Influenza (3 years and up) Lot #: [id number] Administered on:13-Jan-2012 Comments: Site: Deltoid (L eft); Given at [facility] by Sherri PERRY Influenza (3 years and up) Lot #: [id number] Administered on:28-Dec-2012 Comments: Site: Deltoid ( Right) Tdap (7 years and up) Lot #: [id number] Administered on:20-Dec-2008 Comments: Site: Deltoid ( Left) [...] Comments: 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 @ [employer] No Drug Use Non Smoker/No [...] DAY 1 Treatment Plan * THEODORE CULTURE-URINE (68492); Ordered: 07/04/2013 * Chem 8 BMP (93154); Ordered: 12/24/2012; Note: STANDING ORDER * CBC (90659); Ordered: 12/21/2012 * Chem 8 BMP (79326); Ordered: 12/21/2012 * VITAMIN D 25 (CALCIFEROL)(58980); Ordered: 05/31/2012 * CBC (92003); Ordered: 01/09/2012 * URINALYSIS, (86965); Ordered: 01/09/2012 * THEODORE CULTURE-URINE (69240); Ordered: 01/09/2012 * BASIC METABOLIC PANEL,BMP (23238); Ordered: 10/31/2011; Note: STANDING ORDER * PHOSPHORUS (60926); Ordered: 10/31/2011 * MAGNESIUM (43851); Ordered: 10/31/2011 * VANCOMYCIN, TROUGH (65739); Ordered: 10/27/2011; Note: STANDING ORDER-Do as directed by the pharmacist. * Chem 8 BMP (60232); Ordered: 10/27/2011; Note: STANDING ORDER * Chem 8 BMP (21467); Ordered: 09/23/2011 * IRON PROFILE*; Ordered: 05/29/2011 * HGB A1C (67602); Ordered: 05/29/2011 * LIPID PANEL (26165); Ordered: 05/28/2011 * PSA (PROSTATE SPECIFIC ANTIGEN) (15898); Ordered: 05/28/2011 * METABOLIC PANEL, BASIC (79496); Ordered: 05/28/2011 * LIVER FUNCTION PANEL* (88834); Ordered: 05/28/2011 * VITAMIN B-12 (CYANOCOBALAMIN) (99887); Ordered: 05/28/2011 * TSH (THYROID STIMULATING HORMONE) (52178); Ordered: 05/28/2011 * VITAMIN D 25 (CALCIFEROL)(00110); Ordered: 05/28/2011 * MAGNESIUM (08220); Ordered: 05/28/2011 * EKG (73375); Ordered: 05/28/2011 * CBC & PLATELETS (AUTO) (17033); Ordered: 05/28/2011 * LIVER FUNCTION PANEL* (47272); Ordered: 01/16/2010 * CBC (01182); Ordered: 01/16/2010 * LIPID PANEL (57410); Ordered: 01/16/2010 * BASIC METABOLIC PANEL,BMP (49472); Ordered: 01/16/2010 * BASIC METABOLIC PANEL,BMP (35269); Ordered: 01/19/2009 * BASIC METABOLIC PANEL,BMP (42067); Ordered: 12/20/2008 * TSH (THYROID STIMULATING HORMONE) (12345); Ordered: 12/15/2008 * VITAMIN D, 25 (CALCIFEROL) (11440); Ordered: 12/15/2008 * CBC (98633); Ordered: 12/15/2008 * BASIC METABOLIC PANEL,BMP (95618); Ordered: 12/15/2008 * LIVER FUNCTION PANEL* (97886); Ordered: 12/15/2008 * LIPID PANEL (00277); Ordered: 12/15/2008 Advance Directives No Advance Directives available. Encounters Review Encounter Reason: General - Male - The patient feels well with no complaints. Nutrition: balanced diet. Patient does not exercise. Patient sleeps 8 hours per night. Note for "General - Male": Pt lives at [facility] On 11-Aug-2013 10:54 Review [facility] On 11-Aug-2013 09:20 Annotation/Addendum - Unspecified Diagno sis [facility] On 04-Jul-2013 09:55 Office Visit - Obstructive sleep apnea, Chronic atrial fibrillation (Renamed from Atrial fibrillation, chronic) (427.31 | I48.2), Hypertension, benign, Edema (782.3 | R60.9) [facility] 22-[facility]2013 13:29 Office Visit - Edema, Obstructive sleep apnea, Hypertension, benign, Chronic atrial fibrillation Encounter Reason: [facility] resultsC[facility] On 25-Jan-2013 13:25 Office Visit - Edema, Obstructive sleep apnea, Hypertension, benign, Renal insufficiency Encounter Reason: [facility] On 12-Jan-2013 13:24 Office Visit - Edema, Heart failure, rig ht, Obstructive sleep apnea Encounter Reason: [facility] On 29-Dec-2012 13:26 Office Visit - Cellulitis and abscess of leg, Heart failure, right, Edema Encounter Reason: [facility] On 24-Dec-2012 13:42 Office Visit - Cellulitis and abscess of leg, Heart failure, right, Edema Encounter Reason: Cellulitis - The last clinic visit was 1 week(s) ago. Symptoms include swelling, tenderness and drainage. Symptoms are located on the right leg. The symptoms occur constantly. The patient describes this as worsening. [facility] On 21-Dec-2012 13:38 Medication Note - ANXIETY AND DEPRESSION [facility] On 07-Dec-2012 11:57 Medication Note - Delusional disorder [facility] On 25-Nov-2012 13:07 Office Visit - Chronic atrial fibrillati on, Obstructive sleep apnea, Delusional disorder [facility] On 10:19 Office Visit - Hypertension, benign, Chr onic atrial fibrillation, Obstructive sleep apnea, Delusional disorder Encounter Reason: Medication Review/Refill - Note for "Medication Review/Refill": Suzan dose reductionGoNov[facility] On 10:37 Medication Note - Hypertension, benign [facility] On 29-Jun-2012 13:53 Annotation/Addendum - Vitamin B 12 defic iency [facility] On 22-Jun-2012 17:11 Annotation/Addendum - Heart failure, rig ht [facility] On 07-Jun-2012 11:12 Annotation/Addendum - Vitamin D deficien cy [facility] On 31-May-2012 16:31 Annotation/Addendum - Hypokalemia [facility] On 16-Mar-2012 08:49 Medication Note - Chronic atrial fibrill ation [facility] On 30-Jan-2012 09:29 Annotation/Addendum [facility] On 19-Jan-2012 10:00 Annotation/Addendum - Hematuria [facility] On 09-Jan-2012 13:02 Annotation/Addendum - Edema [facility] On 25-Nov-2011 10:08 Office Visit - Fibrillation, atrial, Troy ma, Obstructive sleep apnea, Hypertension, benign, Type II diabetes mellitus [facility] On 18-Nov-2011 09:35 Office Visit - Edema, Cellulitis and abs cess of leg, Obstructive sleep apnea, Fibrillation, atrial, Stasis dermatitis, Conjunctivitis NOS [facility] On 05-Nov-2011 09:41 Office Visit - Cellulitis and abscess of leg, Chronic kidney disease, stage III (585.3), Edema, Obstructive sleep apnea, Hypertension, benign, Fibrillation, atrial, Encounter for long-term use of other medications (V58.69) [facility] On 10:35 Office Visit - Edema, Cellulitis and abs cess of leg, Stasis dermatitis, Chronic kidney disease, stage III (585.3), Encounter for long-term use of other medications (V58.69), Noninfectious lymphedema Encounter Reason: Ankle Swelling - Patient has had swelling in bilateral feet and ankles with rednessand abdomen has some redness to it alsoGoNovant Health [facility] On 10:18 Annotation/Addendum - Chronic kidney dis ease, stage III (585.3) [facility] On 09:38 Annotation/Addendum - Renal failure , ac arthur on chronic (584.9) [facility] On 10:57 Office Visit - Fibrillation, atrial, Typ e II diabetes mellitus, Obstructive sleep apnea, Hypertension, benign [facility] On 09:52 Annotation/Addendum [facility] On 10:43 Office Visit - Type II diabetes mellitus , Fibrillation, atrial, Hypertension, benign, Obstructive sleep apnea [facility] On 10:34 Medication Note - Unspecified Diagnosis [facility] On 22-Jul-2011 08:19 Annotation/Addendum - Type II diabetes m ellitus, Iron deficiency anemia [facility] On 29-May-2011 11:55 Office Visit - Fibrillation, atrial [facility] On 28-May-2011 11:17 Office Visit - Hypertension, benign, Danelle maliha pulmonary hypertension, Obstructive sleep apnea, Edema, Fibrillation, atrial, Encounter for long-term use of other medications (V58.69), Magnesium deficiency, Osteomalacia, Malaise and fatigue, Benign prostatic hypertrophy with urinary retention, CA of prostate, Hypercholesterolemia [facility] On 28-May-2011 11:01 Annotation/Addendum [facility] On 20-May-2011 09:13 Office Visit-Pre Admission - Edema, Hype rtension, benign, Shortness of breath, Primary pulmonary hypertension, Obstructive sleep apnea, Heart failure, right Encounter Reason: Shortness of Breath - Symptoms include exercise intolerance, fatigue and cough (in the am some times). Onset was sudden 3 week(s) ago. The patient describes this as mild. Associated symptoms include leg pain and edema. [facility] On 16-May-2011 10:42 Office Visit - Acute [...] and talking. Symptoms are relieved by sitting up.[facility] On 08-May-2011 08:38 Office Visit - Hypertension, [...] patient cannot control the flow of urine. [facility] On 16-Jan-2010 14:29 Office Visit - Edema, Hypertension, sandoval gn, Obstructive sleep apnea, Primary pulmonary hypertension, Asthma [facility] On 19-Jan-2009 09:37 Office Visit - Need for prophylactic vac cination and inoculation against combinations of disease, Edema, Hypertension, benign, Obstructive sleep apnea, Primary pulmonary hypertension, Asthma [facility] On 20-Dec-2008 13:48 Office Visit - Obstructive sleep apnea, Primary pulmonary hypertension, Edema, Malaise and fatigue, Hypertension, benign, Hypercholesterolemia, Encounter for long-term use of other medications (V58.69), Urinary incontinence [facility] On 15-Dec-2008 10:50
--- OUTSIDE RECORDS SUMMARY | 2019-09-03 18:49 | XMS REPORT | Continuity of Care Document ---
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 Name Role Phone Homar Clifton PP Katlin [...] Active Comments: 08/09/13 Called to Jay at [facility] ESCITALOPRAM OXALATE, 20MG (Oral Tablet) 1 Tablet [...] Hemanth Meza MD* Start 18-Jul-2013 Active [place]STATIN, 306805DPYN/GM (External Powder) 1 (one) application application two times daily until clear for 0 days * Quantity: 1 {Applicator} Refills: 0 Ordered: Homar Clifton Kali * Start 15-Jan-2015 Active Comments: Called to Avinash myers [facility]--she will order from [facility].--01/15/15 Khushi OXYBUTYNIN CHLORIDE, 5MG (Oral Tablet) 1 [...] Quantity: 120 {Tablet} Refills: 0 Ordered:28-Jun-2011 Hemanth Meaz MD* Start 28-May-2011 End 27-Jun-2011 Inactive CPAP [...] Change to 360mg ER daily[facility] HOLMAN DILTIAZEM HCL, 90MG (Oral Tablet) [...] Flonase 50 MCG/ACT Nasal Suspension 2 (two) Hickman daily for 10 days * Quantity: 1 {Bottle} Refills: 0 Ordered: Ashley Larry* Start End Inactive Flonase Allergy Relief 50 MCG/ACT Nasal Suspension 2 (two) Hickman daily for 30 days * Quantity: 1 [...] symptoms worsen Ordered:September-2016 MRI BRAIN W/O CONTRAST (92253) Ordered:05-Feb-2016 IMMUNIZ ADMN, EA AD VAC SNGL/COMBO (29621) Ordered:31-Jan-20 16 PREVNAR 13 (03944) Completed: 6 Flu (Influenza) *: flu shot Ordered:31-Jan-2016 IMMUNIZ ADMNIN, 1 VAC, SNGL/COMBO (93795) Completed:31-Jan-2016 INTRAMUSCULAR ADMINISTRATION OF HIGH DOS E SPLIT VIRUS PRESERVATIVE FREE INFLUENZA VACCINE (74694) Completed:31-Jan-2016 MRI BRAIN W/O CONTRAST (58100) Ordered:10-Jan-2016 Flu (Influenza) *: flu shot Ordered:16-Jan-2015 IMMUNIZ ADMNIN, 1 VAC, SNGL/COMBO (03224) Completed:16-Jan-2015 INTRAMUSCULAR ADMINISTRATION OF HIGH DOS E SPLIT VIRUS PRESERVATIVE FREE INFLUENZA VACCINE (74061) Completed:16-Jan-2015 Follow up in 2 months Ordered:01-Feb-2014 IMMUNIZATION ADMIN (43741) Completed:Jan-2014 PNEUMOCOCCAL VACCINE (38944) Completed:2 11-Jan-2014 Flu (Influenza) *: flu shot Ordered:31-Jan-2014 IMMUNIZATION ADMIN (55931) Completed:Jan-2014 FLU VACCINE NO PRSV QUADRAVALENT 3 YRS+ (91227) Completed:31-Jan-2014 FOLLOW UP BY PCP Ordered:2-Feb-2012 IMMUNIZ ADMNIN, 1 VAC, SNGL/COMBO (65950) Ordered: 9 TDAP VACCINE IM, >7 YEARS (21925) Ordered:20-Dec-2008 Gallbladder Surgery - Laparoscopic Surgeries Comments: all 4 wis dom teeth [facility] [place] [address] [facility]; lap cholecystectomy 197; vasectomy in 1988; open prostatectomy attempt by [facility] in 2005 but due to fear of cutting nerves, they backed off on removing the prostate. Vasectomy Immunization Name Dates Details Influenza (3 years and up) Lot #: [id number] Administered on:13-Jan-2012 Comments: Site: Deltoid ( Left); Given at [facility] by Sherri PERRY Influenza (3 years and up) Lot #: [id number] Administered on:28-Dec-2012 Comments: Site: Deltoid (Right) Influenza, preserv. free, enhanced immun ogncty, IM Lot #: [id number] Administered on:16-Jan-2015 Comments: Site: Deltoid (Right) Influenza, preserv. free, enhanced immun ogncty, IM Lot #: [id number] Administered on:31-Jan-2016 Comments: Site: Deltoid (Left) Pneumococcal (2 years and up) Lot #: [id number] Administered on:19-Jan-2014 Comments: Site: Deltoid (Right); Admin by Antoinette Sheets RN Pneumococcal conjugate vaccine, 13 floresita t, IM Lot #: [id number] Administered on:31-Jan-2016 Comments: Site: Deltoid (Right) Quadrivalent Influenza Vaccine for 3 yrs & up. Lot #: [id number] Administered on:19-Jan-2014 Comments: Site: Deltoid (Left); Admin by Antoinette Sheets RN Tdap (7 years and up) Lot #: [id number] Administered on:20-Dec-2008 Comments: Site: Deltoid (Left) Family [...] Comments: Status: Active Most Recent Primary Occupation: [email or web address]. 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 Comments: [facility] Status: Active Vital Signs Date Test Result [...] 1 Treatment Plan * BASIC METABOLIC PANEL (24878); Ordered: 07/17/2015 * PSA (Medicare) (G0103); Ordered: 07/17/2015 * THEODORE CULTURE-URINE (77042); Ordered: 07/04/2013 * Chem 8 BMP (09367); Ordered: 12/24/2012; Note: STANDING ORDER * CBC (32310); Ordered: 12/21/2012 * Chem 8 BMP (52331); Ordered: 12/21/2012 * VITAMIN D 25 (CALCIFEROL)(15104); Ordered: 05/31/2012 * CBC (26009); Ordered: 01/09/2012 * URINALYSIS, (59672); Ordered: 01/09/2012 * THEODORE CULTURE-URINE (78486); Ordered: 01/09/2012 * BASIC METABOLIC PANEL,BMP (44621); Ordered: 10/31/2011; Note: STANDING ORDER * PHOSPHORUS (97548); Ordered: 10/31/2011 * MAGNESIUM (67750); Ordered: 10/31/2011 * VANCOMYCIN, TROUGH (25017); Ordered: 10/27/2011; Note: STANDING ORDER-Do as directed by the pharmacist. * Chem 8 BMP (47483); Ordered: 10/27/2011; Note: STANDING ORDER * Chem 8 BMP (75773); Ordered: 09/23/2011 * IRON PROFILE*; Ordered: 05/29/2011 * HGB A1C (28900); Ordered: 05/29/2011 * LIPID PANEL (79423); Ordered: 05/28/2011 * PSA (PROSTATE SPECIFIC ANTIGEN) (32310); Ordered: 05/28/2011 * METABOLIC PANEL, BASIC (90613); Ordered: 05/28/2011 * LIVER FUNCTION PANEL* (22639); Ordered: 05/28/2011 * VITAMIN B-12 (CYANOCOBALAMIN) (13815); Ordered: 05/28/2011 * TSH (THYROID STIMULATING HORMONE) (46042); Ordered: 05/28/2011 * VITAMIN D 25 (CALCIFEROL)(42159); Ordered: 05/28/2011 * MAGNESIUM (87410); Ordered: 05/28/2011 * EKG (92215); Ordered: 05/28/2011 * CBC & PLATELETS (AUTO) (58134); Ordered: 05/28/2011 * LIVER FUNCTION PANEL* (21317); Ordered: 01/16/2010 * CBC (76816); Ordered: 01/16/2010 * LIPID PANEL (10055); Ordered: 01/16/2010 * BASIC METABOLIC PANEL,BMP (88478); Ordered: 01/16/2010 * BASIC METABOLIC PANEL,BMP (45934); Ordered: 01/19/2009 * BASIC METABOLIC PANEL,BMP (64266); Ordered: 12/20/2008 * TSH (THYROID STIMULATING HORMONE) (58329); Ordered: 12/15/2008 * VITAMIN D, 25 (CALCIFEROL) (09205); Ordered: 12/15/2008 * CBC (74086); Ordered: 12/15/2008 * BASIC METABOLIC PANEL,BMP (18334); Ordered: 12/15/2008 * LIVER FUNCTION PANEL* (75349); Ordered: 12/15/2008 * LIPID PANEL (03498); Ordered: 12/15/2008 Advance Directives * Consent of [...] worsening. Associated symptoms include chills and sore throat.[facility] to Office Visit - ACUTE MAXILLARY SINUSITIS (461.0 | J01.00) Encounter Reason: Sinus Congestion - Symptoms include clear rhinorrhea, cheek pain, cheek pressure and cough, while symptoms do not include ear pain or headache. Onset was 4 day(s) ago. Note for "Sinusitis": pt having sinus pain and c/o eye pressure. [facility] 20[facility]May[facility]2016 Office Visit - BENIGN [...] has had this dressing on for one week.[facility] 05-Feb-2016 to 08-Feb-2016 Nurse Visit - FLU VACCINE - HIGH DOSE (R enamed from NEED FOR IMMUNIZATION AGAINST INFLUENZA) (V04.81 | Z23), PREVNAR 13 (Renamed from NEED FOR VACCINATION WITH 13-POLYVALENT PNEUMOCOCCAL CONJUGATE VACCINE) (V03.82 | Z23) [facility] On 31-Jan-2016 18:14 to 18:16 Office Visit [...] it. after taking bath, scab fell off. [facility] On 25-Jan-2016 11:30 to 13:42 Annotation/Addendum - SCHIZOPHRENIA (295 .90 | F20.9) [facility] On 10-Jan-2016 15:30 to 15:38 Office Visit [...] | K59.09), Hypokalemia (276.8) (276.8 | E87.6) [facility] 17-Jul-2015 to 01-Aug-2015 Nurse Visit - FLU VACCINE - HIGH DOSE (R enamed from NEED FOR IMMUNIZATION AGAINST INFLUENZA) (V04.81 | Z23) [facility] On 16-Jan-2015 17:35 to 17:37 Medication Note - OBESITY, MORBID (278.0 1 | E66.01) [facility] On 15-Jan-2015 14:58 to 16:31 Office Visit - Edema (782.3) (782.3 | R6 0.9), URINARY FREQUENCY (788.41 | R35.0) Encounter Reason: General Exam, Follow Up - Note for "Follow up general exam": Pt here from [facility] for 60 day check up. no concerns.[facility] 01-Feb-2014 to 03-Feb-2014 Nurse visit (Non-Billable) - Pneumococca l vaccination (V03.82) 5 years + [facility] On 31-Jan-2014 17:21 to 17:23 Nurse visit (Non-Billable) - FLU VACCINE - QUADRAVALENT (Renamed from NEED FOR IMMUNIZATION AGAINST INFLUENZA) (V04.81 | Z23) [facility] On 31-Jan-2014 16:06 to 16:27 Medication Note - HYPERTENSION (401.9 | I10) [facility] On 24-Aug-2013 12:17 to 15:01 Office Visit [...] history of colon cancer. No blood in stools.[facility] 11-Aug-2013 to 18-Aug-2013 Annotation/Addendum - Unspecified Diagno sis [facility] On 04-Jul-2013 11:55 to 11:58 Office Visit - Obstructive sleep apnea ( 327.23), Chronic atrial fibrillation (Renamed from Atrial fibrillation, chronic) (427.31 | I48.2), Hypertension, benign (401.1), Edema (782.3) (782.3 | R60.9) En[facility] 22[facility]Feb[facility] 15:29 to 15:54 Office Visit - Edema (782.3), Obstructiv e sleep apnea (327.23), Hypertension, benign (401.1), Chronic atrial fibrillation (427.31) Encounter Reason: [facility] 25-Jan-2013 to 03-Feb-2013 Office Visit - Edema (782.3), Obstructiv e sleep apnea (327.23), Hypertension, benign (401.1), Renal insufficiency (593.9) Encounter Reason: [facility] 12-Jan-2013 to 18-Jan-2013 Office Visit - Edema (782.3), Heart fail ure, right (428.0), Obstructive sleep apnea (327.23) Encounter Reason: [facility] 29-Dec-2012 to 04-Jan-2013 Office Visit - Cellulitis and abscess of leg (682.6), Heart failure, right (428.0), Edema (782.3) Encounter Reason: [facility]-Dec-2012 15:42 to 16:19 Office Visit - Cellulitis and abscess of leg (682.6), Heart failure, right (428.0), Edema (782.3) Encounter Reason: Cellulitis - The last clinic visit was 1 week(s) ago. Symptoms include swelling, tenderness and drainage. Symptoms are located on the right leg. The symptoms occur constantly. The patient describes this as worsening. [facility] 21-Dec-2012 to 22-Dec-2012 Medication Note - ANXIETY AND DEPRESSION (300.4) [facility] On 07-Dec-2012 13:57 to 14:02 Medication Note - Delusional disorder (2 97.1) [facility] On 25-Nov-2012 15:07 to 16:36 Office Visit - Chronic atrial fibrillati on (427.31), Obstructive sleep apnea (327.23), Delusional disorder (297.1) [facility] to Office Visit - Hypertension, benign (401 .1), Chronic atrial fibrillation (427.31), Obstructive sleep apnea (327.23), Delusional disorder (297.1) Encounter Reason: Medication Review/Refill - Note for "Medication Review/Refill": [facility]uiarSelect [facility] Medication Note - Hypertension, benign ( 401.1) [facility] On 29-Jun-2012 15:53 to 15:54 Annotation/Addendum - Vitamin B 12 defic iency (266.2) [facility] 22-Jun-2012 to 23-Jun-2012 Annotation/Addendum - Heart failure, rig ht (428.0) [facility] On 07-Jun-2012 13:12 to 22:44 Annotation/Addendum - Vitamin D deficien cy (268.9) [facility] 31-May-2012 to 01-Jun-2012 Annotation/Addendum - Hypokalemia (276.8 ) [facility] On 16-Mar-2012 10:49 to 10:50 Medication Note - Chronic atrial fibrill ation (427.31) [facility] On 30-Jan-2012 11:29 to 11:31 Annotation/Addendum [facility] On 19-Jan-2012 12:00 to 12:03 Annotation/Addendum - Hematuria (599.70) [facility] On 09-Jan-2012 15:02 to 15:42 Annotation/Addendum - Edema (782.3) [facility] On 25-Nov-2011 12:08 to 12:09 Office Visit - Fibrillation, atrial (427 .31), Edema (782.3), Obstructive sleep apnea (327.23), Hypertension, benign (401.1), Type II diabetes mellitus (250.00) [facility] 18-Nov-2011 to 19-Nov-2011 Office Visit - Edema (782.3), Cellulitis and abscess of leg (682.6), Obstructive sleep apnea (327.23), Fibrillation, atrial (427.31), Stasis dermatitis (454.1), Conjunctivitis NOS (372.30) [facility] 05-Nov-2011 to 06-Nov-2011 Office Visit - Cellulitis and abscess of leg (682.6), Chronic kidney disease, stage III (moderate) (585.3), Edema (782.3), Obstructive sleep apnea (327.23), Hypertension, benign (401.1), Fibrillation, atrial (427.31), Encounter for long- term (current) use of other medications (V58.69) [facility] to Office Visit - Edema (782.3), Cellulitis and abscess of leg (682.6), Stasis dermatitis (454.1), Chronic kidney disease, stage III (moderate) (585.3), Encounter for long-term (current) use of other medications (V58.69), 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) Encounter Reason: Ankle Swelling - Patient has had swelling in bilateral feet and ankles with rednessand abdomen has some redness to it [facility] Annotation/Addendum - Chronic kidney dis ease, stage III (moderate) (585.3) [facility] On 11:38 to 11:41 Annotation/Addendum - Renal failure (ARF ), acute on chronic (584.9) [facility] On 12:57 to 12:58 Office Visit - Fibrillation, atrial (427 .31), Type II diabetes mellitus (250.00), Obstructive sleep apnea (327.23), Hypertension, benign (401.1) [facility] to Annotation/Addendum [facility] On 12:43 to 12:54 Office Visit - Type II diabetes mellitus (250.00), Fibrillation, atrial (427.31), Hypertension, benign (401.1), Obstructive sleep apnea (327.23) [facility] to Medication Note - Unspecified Diagnosis [facility] On 22-Jul-2011 10:19 to 10:27 Annotation/Addendum - Type II diabetes m ellitus (250.00), Iron deficiency anemia (280.9) [facility] On 29-May-2011 13:55 to 13:58 Office Visit - Fibrillation, atrial (427 .31) [facility] On 28-May-2011 13:17 to 13:41 Office Visit - Hypertension, benign (401 .1), Primary pulmonary hypertension (416.0), Obstructive sleep apnea (327.23), Edema (782.3), Fibrillation, atrial (427.31), Encounter for long-term (current) use of other medications (V58.69), Magnesium deficiency (275.2), Osteomalacia (268.2), Malaise and fatigue (780.79), Benign prostatic hypertrophy with urinary retention (600.01), CA of prostate (185), Hypercholesterolemia (272.0) [facility] 28-May-2011 to 29-May-2011 Annotation/Addendum [facility] On 20-May-2011 11:13 to 11:14 Office Visit-Pre [...] Associated symptoms include leg pain and edema. [facility] On 16-May-2011 12:42 to 13:20 Office Visit [...] and talking. Symptoms are relieved by sitting up.[facility] 08-May-2011 to 09-May-2011 Office Visit - Hypertension, [...] patient cannot control the flow of urine. [facility] On 16-Jan-2010 16:29 to 16:44 Office Visit - Edema (782.3), Hypertensi on, benign (401.1), Obstructive sleep apnea (327.23), Primary pulmonary hypertension (416.0), Asthma (493.90) [facility] On 19-Jan-2009 11:37 to 12:11 Office Visit - Need for prophylactic vac cination and inoculation against combinations of disease (V06.8), Edema (782.3), Hypertension, benign (401.1), Obstructive sleep apnea (327.23), Primary pulmonary hypertension (416.0), Asthma (493.90) [facility] On 20-Dec-2008 15:48 to 16:19 Office Visit - Obstructive sleep apnea ( 327.23), Primary pulmonary hypertension (416.0), Edema (782.3), Malaise and fatigue (780.79), Hypertension, benign (401.1), Hypercholesterolemia (272.0), Encounter for long-term (current) use of other medications (V58.69), Urinary incontinence (788.30) [facility] On 15-Dec-2008 12:50 to 13:16 Insurance * Valente Trujillo ; a guarantor * MedicareA115 * [employer] * MedicareB146 * Blue Cross Pt B * [employer] * [employer] Primary Preferred Three Tier * [employer] Primary Preferred Three Tier * [facility] * [facility] [place] [facility] * [id number] * [employer] MED-D PDP LOW
--- OUTSIDE RECORDS SUMMARY | 2019-09-03 18:50 | XMS REPORT | Continuity of Care Document ---
Author Author [facility] Address [address] [place] [address] Phone Care Team Providers Care Topographical Surveyor Name Role Phone Younger Hemanth SEGOVIA PP Leela LAUGHLINN, Rubia Unavailable Josh Horton DOHomar Unavailable Dick WATCH ADJUSTER, Sara Unavailable Lorna MCDONOUGH, Mau Ramos Unavailable Unavailable Ethel Orozco CMA Unavailable Unavailable [...] 24 Hour) 1 (one) Capsule ER 24HR daily for 30 days * Quantity: 30 Refills: 5 Ordered :24-Aug-2013 Hemanth Murray MD, Hemanth SEGOVIA* Started 24-Aug-2013 Active Comments: 08/09/13 Called to Jay at [facility] ESCITALOPRAM OXALATE, 20MG (Oral Tablet) 1 Tablet daily for 30 days * Quantity: 30 Refills: 5 Ordered :15-Jul-2013 Hemanth Murray MD, Hemanth SEGOVIA* Started 15-Jul-2013 Active Comments: for depression FAMOTIDINE, [...] Quantity: 60 Refills: 4 Ordered : Hemanth Murray MD, David MD* Started Active Comments: for hypertension MIRTAZAPINE, 15MG (Oral Tablet) 1 Tablet daily for 30 days * Quantity: 30 Refills: 6 Ordered :18-Jul-2013 Hemanth Murray MD, David MD* Started 18-Jul-2013 ActiveOXYBUTYNIN CHLORIDE, 5MG (Oral Tablet) 1 Tablet three times daily for 30 days * Quantity: 90 Refills: 3 Ordered : Hemanth Murray MD, David MD* Started ActivePOTASSIUM CHLORIDE MICHELLE ER, 20MEQ [...] Change to 360mg ER daily[facility] DILTIAZEM HCL, 90MG (Oral Tablet) 1 [...] * Quantity: 8 Refills: 0 Ordered :31-May-2012 Ole Radha MA* Started 31-May-2012 Ended 30-Jul-2012 InactiveXARELTO, 20MG (Oral Tablet) - Historical Medication one daily Inactive Comments: to prevent strokes with atrial fibrillation Allergies and Adverse Reactions Name Dates Details NKDA (Renamed from Aspirin *ANALGESICS - NonNarcotic*) Status: Active Past Medical History Name Dates Details Surgeries Comments: all 4 wisdom teet h removed in 1983 in [facility]; lap cholecystectomy 197; vasectomy in 1988; open prostatectomy attempt by [facility] in 2005 but due to fear of cutting nerves, they backed off on removing the prostate. Status: Active Procedures Procedure Dates Details FOLLOW UP BY PCP Ordered:08-May-2011 IMMUNIZ ADMNIN, 1 VAC, SNGL/COMBO (62098) Ordered: 9 TDAP VACCINE IM, >7 YEARS (91132) Ordered:20-Dec-2008 Immunization Name Dates Details Influenza (3 years and up) Lot #: [id number] Administered on:13-Jan-2012 Comments: Site: Deltoid (L eft); Given at [facility] by Sherri PERRY Influenza (3 years and up) Lot #: [id number] Administered on:28-Dec-2012 Comments: Site: Deltoid ( Right) Tdap (7 years and up) Lot #: [id number] Administered on:20-Dec-2008 Comments: Site: Deltoid ( Left) [...] Comments: 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 @ [employer] No Drug Use Non Smoker/No Tobacco [...] DAY 1 Treatment Plan * THEODORE CULTURE-URINE (01384); Ordered: 07/04/2013 * Chem 8 BMP (20804); Ordered: 12/24/2012; Note: STANDING ORDER * CBC (96897); Ordered: 12/21/2012 * Chem 8 BMP (40774); Ordered: 12/21/2012 * VITAMIN D 25 (CALCIFEROL)(44086); Ordered: 05/31/2012 * CBC (12108); Ordered: 01/09/2012 * URINALYSIS, (26966); Ordered: 01/09/2012 * THEODORE CULTURE-URINE (40839); Ordered: 01/09/2012 * BASIC METABOLIC PANEL,BMP (22096); Ordered: 10/31/2011; Note: STANDING ORDER * PHOSPHORUS (50760); Ordered: 10/31/2011 * MAGNESIUM (91642); Ordered: 10/31/2011 * VANCOMYCIN, TROUGH (56138); Ordered: 10/27/2011; Note: STANDING ORDER-Do as directed by the pharmacist. * Chem 8 BMP (04503); Ordered: 10/27/2011; Note: STANDING ORDER * Chem 8 BMP (32983); Ordered: 09/23/2011 * IRON PROFILE*; Ordered: 05/29/2011 * HGB A1C (73675); Ordered: 05/29/2011 * LIPID PANEL (67938); Ordered: 05/28/2011 * PSA (PROSTATE SPECIFIC ANTIGEN) (26810); Ordered: 05/28/2011 * METABOLIC PANEL, BASIC (66439); Ordered: 05/28/2011 * LIVER FUNCTION PANEL* (29870); Ordered: 05/28/2011 * VITAMIN B-12 (CYANOCOBALAMIN) (66743); Ordered: 05/28/2011 * TSH (THYROID STIMULATING HORMONE) (03946); Ordered: 05/28/2011 * VITAMIN D 25 (CALCIFEROL)(66682); Ordered: 05/28/2011 * MAGNESIUM (92353); Ordered: 05/28/2011 * EKG (94980); Ordered: 05/28/2011 * CBC & PLATELETS (AUTO) (34064); Ordered: 05/28/2011 * LIVER FUNCTION PANEL* (19290); Ordered: 01/16/2010 * CBC (39527); Ordered: 01/16/2010 * LIPID PANEL (21859); Ordered: 01/16/2010 * BASIC METABOLIC PANEL,BMP (91974); Ordered: 01/16/2010 * BASIC METABOLIC PANEL,BMP (19904); Ordered: 01/19/2009 * BASIC METABOLIC PANEL,BMP (48702); Ordered: 12/20/2008 * TSH (THYROID STIMULATING HORMONE) (32147); Ordered: 12/15/2008 * VITAMIN D, 25 (CALCIFEROL) (87126); Ordered: 12/15/2008 * CBC (75487); Ordered: 12/15/2008 * BASIC METABOLIC PANEL,BMP (13775); Ordered: 12/15/2008 * LIVER FUNCTION PANEL* (93187); Ordered: 12/15/2008 * LIPID PANEL (68569); Ordered: 12/15/2008 Advance Directives No Advance Directives available. Encounters Medication Note - HYPERTENSION (401.9 | I10) [facility] On 24-Aug-2013 10:17 Office Visit [...] colon cancer. No blood in stools.[facility] On 11-Aug-2013 10:54 Annotation/Addendum - Unspecified Diagno sis [facility] On 04-Jul-2013 09:55 Office Visit - Obstructive sleep apnea, Chronic atrial fibrillation (Renamed from Atrial fibrillation, chronic) (427.31 | I48.2), Hypertension, benign, Edema (782.3 | R60.9) [facility]counter Reason[facility] 22-Feb-2013 13:29 Office Visit - Edema, Obstructive sleep apnea, Hypertension, benign, Chronic atrial fibrillation Encounter Reason: Review lab results[facility] 25-Jan-2013 13:25 Office Visit - Edema, Obstructive sleep apnea, Hypertension, benign, Renal insufficiency Encounter Reason: [facility]ulitis[facility] On 12-Jan-2013 13:24 Office Visit - Edema, Heart failure, rig ht, Obstructive sleep apnea Encounter Reason: [facility]itis[facility] 29-Dec-2012 13:26 Office Visit - Cellulitis and abscess of leg, Heart failure, right, Edema Encounter Reason: [facility]itis[facility] 24-Dec-2012 13:42 Office Visit - Cellulitis and abscess of leg, Heart failure, right, Edema Encounter Reason: Cellulitis - The last clinic visit was 1 week(s) ago. Symptoms include swelling, tenderness and drainage. Symptoms are located on the right leg. The symptoms occur constantly. The patient describes this as worsening. [facility] On 21-Dec-2012 13:38 Medication Note - ANXIETY AND DEPRESSION [facility] On 07-Dec-2012 11:57 Medication Note - Delusional disorder [facility] On 25-Nov-2012 13:07 Office Visit - Chronic atrial fibrillati on, Obstructive sleep apnea, Delusional disorder [facility] On 10:19 Office Visit - Hypertension, benign, Chr onic atrial fibrillation, Obstructive sleep apnea, Delusional disorder Encounter Reason: Medication Review/Refill - Note for "Medication Review/Refill": Suzan dose reductionNov[facility] Health [facility] On 10:37 Medication Note - Hypertension, benign [facility] On 29-Jun-2012 13:53 Annotation/Addendum - Vitamin B 12 defic iency [facility] On 22-Jun-2012 17:11 Annotation/Addendum - Heart failure, rig ht [facility] On 07-Jun-2012 11:12 Annotation/Addendum - Vitamin D deficien cy [facility] On 31-May-2012 16:31 Annotation/Addendum - Hypokalemia [facility] On 16-Mar-2012 08:49 Medication Note - Chronic atrial fibrill ation [facility] On 30-Jan-2012 09:29 Annotation/Addendum [facility] On 19-Jan-2012 10:00 Annotation/Addendum - Hematuria [facility] On 09-Jan-2012 13:02 Annotation/Addendum - Edema [facility] On 25-Nov-2011 10:08 Office Visit - Fibrillation, atrial, Troy ma, Obstructive sleep apnea, Hypertension, benign, Type II diabetes mellitus [facility] On 18-Nov-2011 09:35 Office Visit - Edema, Cellulitis and abs cess of leg, Obstructive sleep apnea, Fibrillation, atrial, Stasis dermatitis, Conjunctivitis NOS [facility] On 05-Nov-2011 09:41 Office Visit - Cellulitis and abscess of leg, Chronic kidney disease, stage III (585.3), Edema, Obstructive sleep apnea, Hypertension, benign, Fibrillation, atrial, Encounter for long-term use of other medications (V58.69) [facility] On 10:35 Office Visit - Edema, Cellulitis and abs cess of leg, Stasis dermatitis, Chronic kidney disease, stage III (585.3), Encounter for long-term use of other medications (V58.69), Noninfectious lymphedema Encounter Reason: Ankle Swelling - Patient has had swelling in bilateral feet and ankles with rednessand abdomen has some [facility]ness to it [facility] 10:18 Annotation/Addendum - Chronic kidney dis ease, stage III (585.3) [facility] On 09:38 Annotation/Addendum - Renal failure , ac arthur on chronic (584.9) [facility] On 10:57 Office Visit - Fibrillation, atrial, Typ e II diabetes mellitus, Obstructive sleep apnea, Hypertension, benign [facility] On 09:52 Annotation/Addendum [facility] On 10:43 Office Visit - Type II diabetes mellitus , Fibrillation, atrial, Hypertension, benign, Obstructive sleep apnea [facility] On 10:34 Medication Note - Unspecified Diagnosis [facility] On 22-Jul-2011 08:19 Annotation/Addendum - Type II diabetes m janell, Iron deficiency anemia [facility] On 29-May-2011 11:55 Office Visit - Fibrillation, atrial [facility] On 28-May-2011 11:17 Office Visit - Hypertension, benign, Danelle maliha pulmonary hypertension, Obstructive sleep apnea, Edema, Fibrillation, atrial, Encounter for long-term use of other medications (V58.69), Magnesium deficiency, Osteomalacia, Malaise and fatigue, Benign prostatic hypertrophy with urinary retention, CA of prostate, Hypercholesterolemia [facility] On 28-May-2011 11:01 Annotation/Addendum [facility] On 20-May-2011 09:13 Office Visit-Pre [...] include leg pain and edema. [facility] On 16-May-2011 10:42 Office Visit [...] Symptoms are relieved by sitting up.[facility] On 08-May-2011 08:38 Office Visit [...] control the flow of urine. [facility] On 16-Jan-2010 14:29 Office Visit - Edema, Hypertension, sandoval gn, Obstructive sleep apnea, Primary pulmonary hypertension, Asthma [facility] On 19-Jan-2009 09:37 Office Visit - Need for prophylactic vac cination and inoculation against combinations of disease, Edema, Hypertension, benign, Obstructive sleep apnea, Primary pulmonary hypertension, Asthma [facility] On 20-Dec-2008 13:48 Office Visit - Obstructive sleep apnea, Primary pulmonary hypertension, Edema, Malaise and fatigue, Hypertension, benign, Hypercholesterolemia, Encounter for long-term use of other medications (V58.69), Urinary incontinence [facility] On 15-Dec-2008 10:50
--- OUTSIDE RECORDS SUMMARY | 2019-09-03 18:50 | XMS REPORT | Continuity of Care Document ---
Author Author [facility] Address [address] [place] [address] Phone Care Team Providers Care Work Over Rig Operator Name Role Phone Homar Clifton PP Errol UTILIZATION SUPERVISOR, Nneka Unavailable Unavailable Katlin Berger Unavailable Leela MEDIC TECHNICIAN, Rubia Unavailable Unavailable Problems Name Dates Details [...] wisdom teet h removed in 1983 in [facility]; lap cholecystectomy 197; vasectomy in 1988; open prostatectomy attempt by [facility] in 2005 but due to fear [...] Comments: 08/09/13 Called to Jay at [facility] ESCITALOPRAM OXALATE, 20MG (Oral Tablet) 1 [...] :18-Jul-2013 Hemanth Meza MD* Started 18-Jul-2013 ActiveNYSTATIN, [id number]/GM (External Powder) 1 (one) application application two times daily until clear for 0 days * Quantity: 1 Refills: 0 Ordered :17-Jul-2015 Homar Clifton Kali * Started 15-Jan-2015 Active Comments: Called to Avinash [facility]--she will order from [facility].--01/15/15 [facility] OXYBUTYNIN CHLORIDE, 5MG (Oral Tablet) 1 Tablet [...] Change to 360mg ER daily-[facility] DILTIAZEM HCL, 90MG (Oral Tablet) 1 [...] shot Ordered:16-Jan-2015 IMMUNIZ ADMNIN, 1 VAC, SNGL/COMBO (57972) Completed:16-Jan-2015 INTRAMUSCULAR ADMINISTRATION OF HIGH DOS E SPLIT VIRUS PRESERVATIVE FREE INFLUENZA VACCINE (80668) Completed:16-Jan-2015 Follow up in 2 months Ordered:01-Feb-2014 IMMUNIZATION ADMIN (57989) Completed:Jan-2014 PNEUMOCOCCAL VACCINE (66966) Completed:2 11-Jan-2014 Flu (Influenza) *: flu shot Ordered:31-Jan-2014 IMMUNIZATION ADMIN (38675) Completed:Jan-2014 FLU VACCINE NO PRSV QUADRAVALENT 3 YRS+ (36088) Completed:31-Jan-2014 FOLLOW UP BY PCP Ordered:08-May-2011 IMMUNIZ ADMNIN, 1 VAC, SNGL/COMBO (93680) Ordered: 9 TDAP VACCINE IM, >7 YEARS (97800) Ordered:20-Dec-2008 Gallbladder Surgery - Laparoscopic Vasectomy Immunization Name Dates Details Influenza (3 years and up) Lot #: [id number] Administered on:13-Jan-2012 Comments: Site: Deltoid (L eft); Given at [facility] by Sherri PERRY Influenza (3 years and up) Lot #: [id number] Administered on:28-Dec-2012 Comments: Site: Deltoid ( Right) Influenza, preserv. free, enhanced immun ogncty, IM Lot #: [id number] Administered on:16-Jan-2015 Comments: Site: Deltoid ( Right) Pneumococcal (2 years and up) Lot #: [id number] Administered on:19-Jan-2014 Comments: Site: Deltoid ( Right); Admin by Antoinette Sheets RN Quadrivalent Influenza Vaccine for 3 yrs & up. 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 @ [employer] No Drug Use Non Smoker/No Tobacco [...] 1 Treatment Plan * BASIC METABOLIC PANEL (27655); Ordered: 07/17/2015 * PSA (Medicare) (G0103); Ordered: 07/17/2015 * THEODORE CULTURE-URINE (22354); Ordered: 07/04/2013 * Chem 8 BMP (98764); Ordered: 12/24/2012; Note: STANDING ORDER * CBC (46781); Ordered: 12/21/2012 * Chem 8 BMP (69702); Ordered: 12/21/2012 * VITAMIN D 25 (CALCIFEROL)(17968); Ordered: 05/31/2012 * CBC (03498); Ordered: 01/09/2012 * URINALYSIS, (08755); Ordered: 01/09/2012 * THEODORE CULTURE-URINE (06516); Ordered: 01/09/2012 * BASIC METABOLIC PANEL,BMP (08319); Ordered: 10/31/2011; Note: STANDING ORDER * PHOSPHORUS (52522); Ordered: 10/31/2011 * MAGNESIUM (84190); Ordered: 10/31/2011 * VANCOMYCIN, TROUGH (34874); Ordered: 10/27/2011; Note: STANDING ORDER-Do as directed by the pharmacist. * Chem 8 BMP (75579); Ordered: 10/27/2011; Note: STANDING ORDER * Chem 8 BMP (44140); Ordered: 09/23/2011 * IRON PROFILE*; Ordered: 05/29/2011 * HGB A1C (87752); Ordered: 05/29/2011 * LIPID PANEL (56182); Ordered: 05/28/2011 * PSA (PROSTATE SPECIFIC ANTIGEN) (82118); Ordered: 05/28/2011 * METABOLIC PANEL, BASIC (83484); Ordered: 05/28/2011 * LIVER FUNCTION PANEL* (89380); Ordered: 05/28/2011 * VITAMIN B-12 (CYANOCOBALAMIN) (49039); Ordered: 05/28/2011 * TSH (THYROID STIMULATING HORMONE) (59536); Ordered: 05/28/2011 * VITAMIN D 25 (CALCIFEROL)(35009); Ordered: 05/28/2011 * MAGNESIUM (99830); Ordered: 05/28/2011 * EKG (63756); Ordered: 05/28/2011 * CBC & PLATELETS (AUTO) (72851); Ordered: 05/28/2011 * LIVER FUNCTION PANEL* (74388); Ordered: 01/16/2010 * CBC (34706); Ordered: 01/16/2010 * LIPID PANEL (83648); Ordered: 01/16/2010 * BASIC METABOLIC PANEL,BMP (54078); Ordered: 01/16/2010 * BASIC METABOLIC PANEL,BMP (96817); Ordered: 01/19/2009 * BASIC METABOLIC PANEL,BMP (82525); Ordered: 12/20/2008 * TSH (THYROID STIMULATING HORMONE) (19616); Ordered: 12/15/2008 * VITAMIN D, 25 (CALCIFEROL) (16552); Ordered: 12/15/2008 * CBC (74975); Ordered: 12/15/2008 * BASIC METABOLIC PANEL,BMP (53528); Ordered: 12/15/2008 * LIVER FUNCTION PANEL* (88021); Ordered: 12/15/2008 * LIPID PANEL (71440); Ordered: 12/15/2008 Advance Directives No Advance Directives available. Encounters Office Visit - TYPE II DIABETES MELLITUS [...] | K59.09), Hypokalemia (276.8) (276.8 | E87.6) [facility] On 17-Jul-2015 15:17 Nurse Visit - FLU VACCINE - HIGH DOSE (R enamed from NEED FOR IMMUNIZATION AGAINST INFLUENZA) (V04.81 | Z23) [facility] On 16-Jan-2015 15:35 Medication Note - OBESITY, MORBID (278.0 1 | E66.01) [facility] On 15-Jan-2015 12:58 Office Visit - Edema (782.3) (782.3 | R6 0.9), URINARY FREQUENCY (788.41 | R35.0) Encounter Reason: General Exam, Follow Up - Note for "Follow up general exam": Pt here from [facility] for 60 day check up. no concerns.[facility] On 01-Feb-2014 08:24 Nurse visit (Non-Billable) - Pneumococca l vaccination (V03.82) 5 years + [facility] On 31-Jan-2014 15:21 Nurse visit (Non-Billable) - FLU VACCINE - QUADRAVALENT (Renamed from NEED FOR IMMUNIZATION AGAINST INFLUENZA) (V04.81 | Z23) [facility] On 31-Jan-2014 14:06 Medication Note - HYPERTENSION (401.9 | I10) [facility] On 24-Aug-2013 10:17 Office Visit - Chronic [...] history of colon cancer. No blood in stools.[facility] On 11-Aug-2013 10:54 Annotation/Addendum - Unspecified Diagno sis [facility] On 04-Jul-2013 09:55 Office Visit - Obstructive sleep apnea ( 327.23), Chronic atrial fibrillation (Renamed from Atrial fibrillation, chronic) (427.31 | I48.2), Hypertension, benign (401.1), Edema (782.3) (782.3 | R60.9) [facility] 13[facility]29 Office Visit - Edema (782.3), Obstructiv e sleep apnea (327.23), Hypertension, benign (401.1), Chronic atrial fibrillation (427.31) Encounter Reason: Review [facility] results[facility] On 25-Jan-2013 13:25 Office Visit - Edema (782.3), Obstructiv e sleep apnea (327.23), Hypertension, benign (401.1), Renal insufficiency (593.9) Encounter Reason: [facility] On 12-Jan-2013 13:24 Office Visit - Edema (782.3), Heart fail ure, right (428.0), Obstructive sleep apnea (327.23) [facility]: [facility] 29-Dec-2012 13:26 Office Visit - Cellulitis and abscess of leg (682.6), Heart failure, right (428.0), Edema (782.3) Encounter Reason: [facility] 24-Dec-2012 13:42 Office Visit - Cellulitis and abscess of leg (682.6), Heart failure, right (428.0), Edema (782.3) Encounter Reason: Cellulitis - The last clinic visit was 1 week(s) ago. Symptoms include swelling, tenderness and drainage. Symptoms are located on the right leg. The symptoms occur constantly. The patient describes this as worsening. [facility] On 21-Dec-2012 13:38 Medication Note - ANXIETY AND DEPRESSION (300.4) [facility] On 07-Dec-2012 11:57 Medication Note - Delusional disorder (2 97.1) [facility] On 25-Nov-2012 13:07 Office Visit - Chronic atrial fibrillati on (427.31), Obstructive sleep apnea (327.23), Delusional disorder (297.1) [facility] On 10:19 Office Visit - Hypertension, benign (401 .1), Chronic atrial fibrillation (427.31), Obstructive sleep apnea (327.23), Delusional disorder (297.1) Encounter Reason: Medication Review/Refill - Note for "Medication Review/Refill": [facility]an dose reductionSc[facility] On 10:37 Medication Note - Hypertension, benign ( 401.1) [facility] On 29-Jun-2012 13:53 Annotation/Addendum - Vitamin B 12 defic iency (266.2) [facility] On 22-Jun-2012 17:11 Annotation/Addendum - Heart failure, rig ht (428.0) [facility] On 07-Jun-2012 11:12 Annotation/Addendum - Vitamin D deficien cy (268.9) [facility] On 31-May-2012 16:31 Annotation/Addendum - Hypokalemia (276.8 ) [facility] On 16-Mar-2012 08:49 Medication Note - Chronic atrial fibrill ation (427.31) [facility] On 30-Jan-2012 09:29 Annotation/Addendum [facility] On 19-Jan-2012 10:00 Annotation/Addendum - Hematuria (599.70) [facility] On 09-Jan-2012 13:02 Annotation/Addendum - Edema (782.3) [facility] On 25-Nov-2011 10:08 Office Visit - Fibrillation, atrial (427 .31), Edema (782.3), Obstructive sleep apnea (327.23), Hypertension, benign (401.1), Type II diabetes mellitus (250.00) [facility] On 18-Nov-2011 09:35 Office Visit - Edema (782.3), Cellulitis and abscess of leg (682.6), Obstructive sleep apnea (327.23), Fibrillation, atrial (427.31), Stasis dermatitis (454.1), Conjunctivitis NOS (372.30) [facility] On 05-Nov-2011 09:41 Office Visit - Cellulitis and abscess of leg (682.6), Chronic kidney disease, stage III (moderate) (585.3), Edema (782.3), Obstructive sleep apnea (327.23), Hypertension, benign (401.1), Fibrillation, atrial (427.31), Encounter for long- term (current) use of other medications (V58.69) [facility] On 10:35 Office Visit - Edema (782.3), Cellulitis and abscess of leg (682.6), Stasis dermatitis (454.1), Chronic kidney disease, stage III (moderate) (585.3), Encounter for long-term (current) use of other medications (V58.69), 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) Encounter Reason: Ankle Swelling - Patient has had swelling in bilateral feet and ankles with rednessand abdomen has some [facility]ness to [facility] 10:18 Annotation/Addendum - Chronic kidney dis ease, stage III (moderate) (585.3) [facility] On 09:38 Annotation/Addendum - Renal failure (ARF ), acute on chronic (584.9) [facility] On 10:57 Office Visit - Fibrillation, atrial (427 .31), Type II diabetes mellitus (250.00), Obstructive sleep apnea (327.23), Hypertension, benign (401.1) [facility] On 09:52 Annotation/Addendum [facility] On 10:43 Office Visit - Type II diabetes mellitus (250.00), Fibrillation, atrial (427.31), Hypertension, benign (401.1), Obstructive sleep apnea (327.23) [facility] On 10:34 Medication Note - Unspecified Diagnosis [facility] On 22-Jul-2011 08:19 Annotation/Addendum - Type II diabetes m ellitus (250.00), Iron deficiency anemia (280.9) [facility] On 29-May-2011 11:55 Office Visit - Fibrillation, atrial (427 .31) [facility] On 28-May-2011 11:17 Office Visit - Hypertension, benign (401 .1), Primary pulmonary hypertension (416.0), Obstructive sleep apnea (327.23), Edema (782.3), Fibrillation, atrial (427.31), Encounter for long-term (current) use of other medications (V58.69), Magnesium deficiency (275.2), Osteomalacia (268.2), Malaise and fatigue (780.79), Benign prostatic hypertrophy with urinary retention (600.01), CA of prostate (185), Hypercholesterolemia (272.0) [facility] On 28-May-2011 11:01 Annotation/Addendum [facility] On 20-May-2011 09:13 Office Visit-Pre Admission - [...] Associated symptoms include leg pain and edema. [facility] On 16-May-2011 10:42 Office Visit - Acute [...] and talking. Symptoms are relieved by sitting up.[facility] On 08-May-2011 08:38 Office Visit - Hypertension, [...] patient cannot control the flow of urine. [facility] On 16-Jan-2010 14:29 Office Visit - Edema (782.3), Hypertensi on, benign (401.1), Obstructive sleep apnea (327.23), Primary pulmonary hypertension (416.0), Asthma (493.90) [facility] On 19-Jan-2009 09:37 Office Visit - Need for prophylactic vac cination and inoculation against combinations of disease (V06.8), Edema (782.3), Hypertension, benign (401.1), Obstructive sleep apnea (327.23), Primary pulmonary hypertension (416.0), Asthma (493.90) [facility] On 20-Dec-2008 13:48 Office Visit - Obstructive sleep apnea ( 327.23), Primary pulmonary hypertension (416.0), Edema (782.3), Malaise and fatigue (780.79), Hypertension, benign (401.1), Hypercholesterolemia (272.0), Encounter for long-term (current) use of other medications (V58.69), Urinary incontinence (788.30) [facility] On 15-Dec-2008 10:50 Insurance * Valente Trujillo ; a guarantor * MedicareA115 * [employer] * MedicareB146 * Blue [employer] Pt [employer] * [facility] * [employer] Primary Preferred Three Tier * [employer] Primary Preferred Three Tier * [address] * [facility] * 2014 [place] * [place] PDP LOW
--- OUTSIDE RECORDS SUMMARY | 2019-09-03 18:51 | XMS REPORT | Continuity of Care Document ---
Author Author [facility] Address [address] [place] [address] Phone Care Team Providers Care Radiochemical Technician Name Role Phone Homar Clifton PP [phone] Katlin Beregr Unavailable Abdullahi PERRY, Tuyet Unavailable Unavailable Arabella Sauceda Unavailable Unavailable Ashley Kelsey Unavailable Cathryn LAUGHLINN, Eden Hardwick Unavailable Unavailable Anup LAUGHLINN, Rubia Unavailable Ofelia MATUTE, Nneka Unavailable Unavailable Unavailable Problems Name Dates Details ACUTE MAXILLARY SINUSITIS (461.0, J01.00 ) Status: Active ACUTE MAXILLARY SINUSITIS (461.0, J01.00 ) Status: [...] OR ECZEMA (692.9, L25 .9) Status: Active COUGH (786.2, R05) Status: Active Delusional disorder (297.1, F22) Status: [...] Active Comments: 08/09/13 Called to Jay at [facility] ESCITALOPRAM OXALATE, 20MG (Oral Tablet) 1 [...] Hemanth Meza MD* Start 18-Jul-2013 Active NYSTATIN, [id number]/GM (External Powder) 1 (one) application application two times daily until clear for 0 days * Quantity: 1 {Applicator} Refills: 0 Ordered:23-Mar-2017 Homar Clifton Kali * Start 15-Jan-2015 Active Comments: Called to Avinash myers [facility]--she will order from [employer].--01/15/15 Khushi OXYBUTYNIN CHLORIDE, 5MG (Oral Tablet) 1 [...] Change to 360mg ER daily-[facility] DILTIAZEM HCL, 90MG (Oral Tablet) [...] Flonase 50 MCG/ACT Nasal Suspension 2 (two) [place] daily for 10 days * Quantity: 1 {Bottle} Refills: 0 Ordered: Ashley Larry* Start End Inactive Flonase Allergy Relief 50 MCG/ACT Nasal Suspension 2 (two) [place] daily for 30 days * Quantity: 1 [...] 19-Jan-2009 End 16-Jan-2010 Inactive Comments: for hypertension Levaquin 750 MG Oral Tablet 1 (one) tablet every other day for 10 days * Quantity: 5 {Tablet} Refills: 0 Ordered:27-Mar-2017 Homar Clifton Kali * Start 27-Mar-2017 End 06-Apr-2017 Inactive LISINOPRIL, 20MG (Oral Tablet) one Tablet daily [...] Ordered: Hemanth Meza MD* Start End Inactive PredniSONE 20 MG Oral Tablet 3 (three) Tablet daily for 5 days * Quantity: 15 {Tablet} Refills: 0 Ordered:01-Apr-2017 Homar Clifton Kali * Start 27-Mar-2017 End 01-Apr-2017 Inactive Robitussin Cough+Chest Maicol DM 20-400 MG/20ML [...] Dates Details XR PARANASAL SINUSES, HWANG VIEW (10773) Ordered: 7 CHEST X-RAY, PA AND LATERAL (35300) Ordered:23-Mar-2017 Flu (Influenza) *: flu shot Ordered:09-Jan-2017 IMMUNIZ ADMNIN, 1 VAC, SNGL/COMBO (53501) Completed:09-Jan-2017 INTRAMUSCULAR ADMINISTRATION OF HIGH DOS E SPLIT VIRUS PRESERVATIVE FREE INFLUENZA VACCINE (36328) Completed:09-Jan-2017 Follow up if no improvement or if symptoms worsen Ordered:September-2016 MRI BRAIN W/O CONTRAST (42962) Ordered:05-Feb-2016 IMMUNIZ ADMN, EA AD VAC SNGL/COMBO (26991) Ordered:31-Jan-20 16 PREVNAR 13 (61566) Completed: 6 Flu (Influenza) *: flu shot Ordered:31-Jan-2016 IMMUNIZ ADMNIN, 1 VAC, SNGL/COMBO (98008) Completed:31-Jan-2016 INTRAMUSCULAR ADMINISTRATION OF HIGH DOS E SPLIT VIRUS PRESERVATIVE FREE INFLUENZA VACCINE (22644) Completed:31-Jan-2016 MRI BRAIN W/O CONTRAST (41946) Ordered:10-Jan-2016 Flu (Influenza) *: flu shot Ordered:16-Jan-2015 IMMUNIZ ADMNIN, 1 VAC, SNGL/COMBO (89604) Completed:16-Jan-2015 INTRAMUSCULAR ADMINISTRATION OF HIGH DOS E SPLIT VIRUS PRESERVATIVE FREE INFLUENZA VACCINE (66649) Completed:16-Jan-2015 Follow up in 2 months Ordered:01-Feb-2014 IMMUNIZATION ADMIN (36649) Completed:Jan-2014 PNEUMOCOCCAL VACCINE (10330) Completed:2 11-Jan-2014 Flu (Influenza) *: flu shot Ordered:31-Jan-2014 IMMUNIZATION ADMIN (97189) Completed:Jan-2014 FLU VACCINE NO PRSV QUADRAVALENT 3 YRS+ (08285) Completed:31-Jan-2014 FOLLOW UP BY PCP Ordered:08-May-2011 IMMUNIZ ADMNIN, 1 VAC, SNGL/COMBO (44624) Ordered: 9 TDAP VACCINE IM, >7 YEARS (63980) Ordered:20-Dec-2008 Gallbladder Surgery - Laparoscopic Surgeries Comments: all 4 wis dom [address] [facility] [place] [address] [facility]; lap cholecystectomy 197; vasectomy in 1988; open prostatectomy attempt by [facility] in 2005 but due to fear of cutting nerves, they backed off on removing the prostate. Vasectomy Immunization Name Dates Details Influenza (3 years and up) Lot #: [id number] Administered on:13-Jan-2012 Comments: Site: Deltoid ( Left); Given at [facility] by Sherri PERRY Influenza (3 years and up) Lot #: [id number] Administered on:28-Dec-2012 Comments: Site: Deltoid (Right) Influenza, preserv. free, enhanced immun ogncty, IM Lot #: [id number] Administered on:16-Jan-2015 Comments: Site: Deltoid (Right) Influenza, preserv. free, enhanced immun ogncty, IM Lot #: [id number] Administered on:31-Jan-2016 Comments: Site: Deltoid (Left) Influenza, preserv. free, enhanced immun ogncty, IM Lot #: [id number] Administered on:09-Jan-2017 Comments: Site: Deltoid ( Left) Pneumococcal (2 years and up) Lot #: [id number] Administered on:19-Jan-2014 Comments: Site: Deltoid (Right); Admin by Antoinette Sheets RN Pneumococcal conjugate vaccine, 13 floresita t, IM Lot #: [id number] Administered on:31-Jan-2016 Comments: Site: Deltoid (Right) Quadrivalent Influenza Vaccine for 3 yrs & up. Lot #: [id number] Administered on:19-Jan-2014 Comments: Site: Deltoid (Left); Admin by Antoinette Sheets RN Tdap (7 years and up) Lot #: [id number] Administered on:20-Dec-2008 Comments: Site: Deltoid (Left) Family [...] Comments: Status: Active Most Recent Primary Occupation: [employer]. 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 Comments: [facility] Status: Active Vital Signs Date Test Result Details 01-Apr-2017 11:19 Temperature 96.9 f Comments: Method: T emporal Pulse 77 /min Comments: Pattern: Regular Respiration Rate 20 /min Comments: Pattern: Unlabored O2 SAT 95 % Comments: Room air BP Systolic 110 mm[Hg] Comments: Patient P osition: Sitting; Cuff Location: Left Arm; Cuff Size: Standard BP Diastolic 84 mm[Hg] Comments: Patient P osition: Sitting; Cuff Location: Left Arm; Cuff Size: Standard Weight 342 lb Height 69 in Body Mass Index Calculated 50.5 kg/m2 Body Surface Area Calculated 2.59 m2 27-Mar-2017 15:29 Temperature 97 f Comments: Method: T ympanic Pulse 110 /min Comments: Pattern: Regular Respiration Rate 20 /min Comments: Pattern: Unlabored O2 SAT 97 % Comments: Room air BP Systolic 132 mm[Hg] Comments: Patient P osition: Sitting; Cuff Location: Left Arm; Cuff Size: Standard BP Diastolic 86 mm[Hg] Comments: Patient P osition: Sitting; Cuff Location: Left Arm; Cuff Size: Standard Weight 351 lb Height 69 in Body Mass Index Calculated 51.83 kg/m2 Body Surface Area Calculated 2.62 m2 23-Mar-2017 16:15 Temperature 100.5 f Comments: Method: [...] 1 Treatment Plan * Influenza A Ag (96357); Ordered: 03/23/2017; Note: A&B * BASIC METABOLIC PANEL (26787); Ordered: 07/17/2015 * PSA (Medicare) (G0103); Ordered: 07/17/2015 * THEODORE CULTURE-URINE (78534); Ordered: 07/04/2013 * Chem 8 BMP (04508); Ordered: 12/24/2012; Note: STANDING ORDER * CBC (63311); Ordered: 12/21/2012 * Chem 8 BMP (40288); Ordered: 12/21/2012 * VITAMIN D 25 (CALCIFEROL)(75740); Ordered: 05/31/2012 * CBC (17189); Ordered: 01/09/2012 * URINALYSIS, (62834); Ordered: 01/09/2012 * THEODORE CULTURE-URINE (85642); Ordered: 01/09/2012 * BASIC METABOLIC PANEL,BMP (84806); Ordered: 10/31/2011; Note: STANDING ORDER * PHOSPHORUS (87331); Ordered: 10/31/2011 * MAGNESIUM (48700); Ordered: 10/31/2011 * VANCOMYCIN, TROUGH (91371); Ordered: 10/27/2011; Note: STANDING ORDER-Do as directed by the pharmacist. * Chem 8 BMP (01830); Ordered: 10/27/2011; Note: STANDING ORDER * Chem 8 BMP (76306); Ordered: 09/23/2011 * IRON PROFILE*; Ordered: 05/29/2011 * HGB A1C (53521); Ordered: 05/29/2011 * LIPID PANEL (51048); Ordered: 05/28/2011 * PSA (PROSTATE SPECIFIC ANTIGEN) (24864); Ordered: 05/28/2011 * METABOLIC PANEL, BASIC (03491); Ordered: 05/28/2011 * LIVER FUNCTION PANEL* (88547); Ordered: 05/28/2011 * VITAMIN B-12 (CYANOCOBALAMIN) (67243); Ordered: 05/28/2011 * TSH (THYROID STIMULATING HORMONE) (93900); Ordered: 05/28/2011 * VITAMIN D 25 (CALCIFEROL)(68910); Ordered: 05/28/2011 * MAGNESIUM (92188); Ordered: 05/28/2011 * EKG (61769); Ordered: 05/28/2011 * CBC & PLATELETS (AUTO) (03698); Ordered: 05/28/2011 * LIVER FUNCTION PANEL* (38490); Ordered: 01/16/2010 * CBC (06912); Ordered: 01/16/2010 * LIPID PANEL (70706); Ordered: 01/16/2010 * BASIC METABOLIC PANEL,BMP (91018); Ordered: 01/16/2010 * BASIC METABOLIC PANEL,BMP (27116); Ordered: 01/19/2009 * BASIC METABOLIC PANEL,BMP (94731); Ordered: 12/20/2008 * TSH (THYROID STIMULATING HORMONE) (11060); Ordered: 12/15/2008 * VITAMIN D, 25 (CALCIFEROL) (48730); Ordered: 12/15/2008 * CBC (63213); Ordered: 12/15/2008 * BASIC METABOLIC PANEL,BMP (65721); Ordered: 12/15/2008 * LIVER FUNCTION PANEL* (66949); Ordered: 12/15/2008 * LIPID PANEL (35498); Ordered: 12/15/2008 Advance Directives * Consent of Care Agreement - Effective on 03/23/2017. Expiration date unspecified. Scanned Document is available upon request. Effective: 23-Mar-2017 Encounters Office Visit - ACUTE MAXILLARY SINUSITIS (461.0 | J01.00), RIGHT LOWER LOBE PNEUMONIA (486 | J18.1), COUGH (786.2 | R05), FEVER (780.60 | R50.9) Encounter Reason: General Adult Exam - Last seen less than 1 month ago. General health: feels well with minor complaints. The patient's appetite is normal. Nutrition: normal/adequate. Exercises 0 days per week. Note for "General adult exam": Kurtis here for routine visit for Jewel Taylor. He reports "I am just not feeling the best"[facility] 01-Apr-2017 to 07-Apr-2017 Office Visit - RIGHT LOWER LOBE PNEUMONI A (486 | J18.1), FEVER (780.60 | R50.9), ACUTE MAXILLARY SINUSITIS (461.0 | J01.00), COUGH (786.2 | R05) Encounter Reason: Pneumonia, Bacterial - Note for "Bacterial pneumonia": pt here for pneumonia f/u. feeling better. still coughing. fever resolved.[facility] On 27-Mar-2017 15:24 to 15:44 Office Visit - FEVER (780.60 | R50.9), S INUS PRESSURE (478.19 | J34.89), RIGHT LOWER LOBE PNEUMONIA (486 | J18.1) Encounter Reason: Cold Symptoms - Symptoms include nasal congestion, runny nose and productive cough, while symptoms do not include sore throat. Onset was 3 day(s) ago. The patient describes this as mild and worsening. fever present. worse [facility] the [facility] 23-Mar-2017 to 24-Mar-2017 Medication Note - Chronic atrial fibrill ation (Renamed from Atrial fibrillation, chronic) (427.31 | I48.2) [facility] On 09-Feb-2017 16:52 to 16:56 Nurse visit (Non-Billable) - FLU VACCINE - HIGH DOSE (Renamed from NEED FOR IMMUNIZATION AGAINST INFLUENZA) (V04.81 | Z23) [facility] On 09-Jan-2017 17:53 to 17:54 Office Visit - COMMON COLD VIRUS (460 | J00) Encounter Reason: Sinusitis - Symptoms include nasal congestion, postnasal drainage, forehead pressure and cough. Onset was sudden 1 day(s) ago. The symptoms occur constantly. The patient describes this as moderate in severity and worsening. Associated symptoms include chills and sore throat.[facility] to Office Visit - ACUTE MAXILLARY SINUSITIS (461.0 | J01.00) Encounter Reason: Sinus Congestion - Symptoms include clear rhinorrhea, cheek pain, cheek pressure and cough, while symptoms do not include ear pain or headache. Onset was 4 day(s) ago. Note for "Sinusitis": pt having sinus pain and c/o eye pressure. [facility] 19-May-2016 to 20-May-2016 Office Visit - [...] has had this dressing on for one week.[facility] 05-Feb-2016 to 08-Feb-2016 Nurse Visit - FLU VACCINE - HIGH DOSE (R enamed from NEED FOR IMMUNIZATION AGAINST INFLUENZA) (V04.81 | Z23), PREVNAR 13 (Renamed from NEED FOR VACCINATION WITH 13-POLYVALENT PNEUMOCOCCAL CONJUGATE VACCINE) (V03.82 | Z23) [facility] On 31-Jan-2016 18:14 to 18:16 Office Visit [...] it. after taking bath, scab fell off. [facility] On 25-Jan-2016 11:30 to 13:42 Annotation/Addendum - SCHIZOPHRENIA (295 .90 | F20.9) [facility] On 10-Jan-2016 15:30 to 15:38 Office Visit [...] | K59.09), Hypokalemia (276.8) (276.8 | E87.6) [facility] 17-Jul-2015 to 01-Aug-2015 Nurse Visit - FLU VACCINE - HIGH DOSE (R enamed from NEED FOR IMMUNIZATION AGAINST INFLUENZA) (V04.81 | Z23) [facility] On 16-Jan-2015 17:35 to 17:37 Medication Note - OBESITY, MORBID (278.0 1 | E66.01) [facility] On 15-Jan-2015 14:58 to 16:31 Office Visit - Edema (782.3) (782.3 | R6 0.9), URINARY FREQUENCY (788.41 | R35.0) Encounter Reason: General Exam, Follow Up - Note for "Follow up general exam": Pt [facility] from [facility] for [facility] day check up. no concerns.[facility] 01-Feb-2014 to 03-Feb-2014 Nurse visit (Non-Billable) - Pneumococca l vaccination (V03.82) 5 years + [facility] On 31-Jan-2014 17:21 to 17:23 Nurse visit (Non-Billable) - FLU VACCINE - QUADRAVALENT (Renamed from NEED FOR IMMUNIZATION AGAINST INFLUENZA) (V04.81 | Z23) [facility] On 31-Jan-2014 16:06 to 16:27 Medication Note - HYPERTENSION (401.9 | I10) [facility] On 24-Aug-2013 12:17 to 15:01 Office Visit [...] history of colon cancer. No blood in stools.[facility] 11-Aug-2013 to 18-Aug-2013 Annotation/Addendum - Unspecified Diagno sis [facility] On 04-Jul-2013 11:55 to 11:58 Office Visit - Obstructive sleep apnea ( 327.23), Chronic atrial fibrillation (Renamed from Atrial fibrillation, chronic) (427.31 | I48.2), Hypertension, benign (401.1), Edema (782.3) (782.3 | R60.9) Encounter Reason: [facility] On 22-Feb-2013 15:29 to 15:54 Office Visit - Edema (782.3), Obstructiv e sleep apnea (327.23), Hypertension, benign (401.1), Chronic atrial fibrillation (427.31) Encounter Reason: [facility] 25-Jan-2013 to 03-Feb-2013 Office Visit - Edema (782.3), Obstructiv e sleep apnea (327.23), Hypertension, benign (401.1), Renal insufficiency (593.9) [facility] Office Visit - Edema (782.3), Heart fail ure, right (428.0), Obstructive sleep apnea (327.23) Encounter Reason: [facility] 29-Dec-2012 to 04-Jan-2013 Office Visit - Cellulitis and abscess of leg (682.6), Heart failure, right (428.0), Edema (782.3) Encounter Reason: [facility] On 24-Dec-2012 15:42 to 16:19 Office Visit - Cellulitis and abscess of leg (682.6), Heart failure, right (428.0), Edema (782.3) Encounter Reason: Cellulitis - The last clinic visit was 1 week(s) ago. Symptoms include swelling, tenderness and drainage. Symptoms are located on the right leg. The symptoms occur constantly. The patient describes this as worsening. [facility] 21-Dec-2012 to 22-Dec-2012 Medication Note - ANXIETY AND DEPRESSION (300.4) [facility] On 07-Dec-2012 13:57 to 14:02 Medication Note - Delusional disorder (2 97.1) [facility] On 25-Nov-2012 15:07 to 16:36 Office Visit - Chronic atrial fibrillati on (427.31), Obstructive sleep apnea (327.23), Delusional disorder (297.1) [facility] to Office Visit - Hypertension, benign (401 .1), Chronic atrial fibrillation (427.31), Obstructive sleep apnea (327.23), Delusional disorder (297.1) Encounter Reason: Medication Review/Refill - Note for "Medication Review/Refill": Suzan dose [facility] hospital to Medication Note - Hypertension, benign ( 401.1) [facility] On 29-Jun-2012 15:53 to 15:54 Annotation/Addendum - Vitamin B 12 defic iency (266.2) [facility] 22-Jun-2012 to 23-Jun-2012 Annotation/Addendum - Heart failure, rig ht (428.0) [facility] On 07-Jun-2012 13:12 to 22:44 Annotation/Addendum - Vitamin D deficien cy (268.9) [facility] 31-May-2012 to 01-Jun-2012 Annotation/Addendum - Hypokalemia (276.8 ) [facility] On 16-Mar-2012 10:49 to 10:50 Medication Note - Chronic atrial fibrill ation (427.31) [facility] On 30-Jan-2012 11:29 to 11:31 Annotation/Addendum [facility] On 19-Jan-2012 12:00 to 12:03 Annotation/Addendum - Hematuria (599.70) [facility] On 09-Jan-2012 15:02 to 15:42 Annotation/Addendum - Edema (782.3) [facility] On 25-Nov-2011 12:08 to 12:09 Office Visit - Fibrillation, atrial (427 .31), Edema (782.3), Obstructive sleep apnea (327.23), Hypertension, benign (401.1), Type II diabetes mellitus (250.00) [facility] 18-Nov-2011 to 19-Nov-2011 Office Visit - Edema (782.3), Cellulitis and abscess of leg (682.6), Obstructive sleep apnea (327.23), Fibrillation, atrial (427.31), Stasis dermatitis (454.1), Conjunctivitis NOS (372.30) [facility] 05-Nov-2011 to 06-Nov-2011 Office Visit - Cellulitis and abscess of leg (682.6), Chronic kidney disease, stage III (moderate) (585.3), Edema (782.3), Obstructive sleep apnea (327.23), Hypertension, benign (401.1), Fibrillation, atrial (427.31), Encounter for long- term (current) use of other medications (V58.69) [facility] to Office Visit - Edema (782.3), Cellulitis and abscess of leg (682.6), Stasis dermatitis (454.1), Chronic kidney disease, stage III (moderate) (585.3), Encounter for long-term (current) use of other medications (V58.69), 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) Encounter Reason: Ankle Swelling - Patient has had swelling in bilateral feet and ankles with rednessand abdomen has some redness to it alsoGoCritical access hospital to Annotation/Addendum - Chronic kidney dis ease, stage III (moderate) (585.3) [facility] On 11:38 to 11:41 Annotation/Addendum - Renal failure (ARF ), acute on chronic (584.9) [facility] On 12:57 to 12:58 Office Visit - Fibrillation, atrial (427 .31), Type II diabetes mellitus (250.00), Obstructive sleep apnea (327.23), Hypertension, benign (401.1) [facility] to Annotation/Addendum [facility] On 12:43 to 12:54 Office Visit - Type II diabetes mellitus (250.00), Fibrillation, atrial (427.31), Hypertension, benign (401.1), Obstructive sleep apnea (327.23) [facility] to Medication Note - Unspecified Diagnosis [facility] On 22-Jul-2011 10:19 to 10:27 Annotation/Addendum - Type II diabetes m ellitus (250.00), Iron deficiency anemia (280.9) [facility] On 29-May-2011 13:55 to 13:58 Office Visit - Fibrillation, atrial (427 .31) [facility] On 28-May-2011 13:17 to 13:41 Office Visit - Hypertension, benign (401 .1), Primary pulmonary hypertension (416.0), Obstructive sleep apnea (327.23), Edema (782.3), Fibrillation, atrial (427.31), Encounter for long-term (current) use of other medications (V58.69), Magnesium deficiency (275.2), Osteomalacia (268.2), Malaise and fatigue (780.79), Benign prostatic hypertrophy with urinary retention (600.01), CA of prostate (185), Hypercholesterolemia (272.0) [facility] 28-May-2011 to 29-May-2011 Annotation/Addendum [facility] On 20-May-2011 11:13 to 11:14 Office Visit-Pre [...] Associated symptoms include leg pain and edema. [facility] On 16-May-2011 12:42 to 13:20 Office Visit [...] and talking. Symptoms are relieved by sitting up.[facility] 08-May-2011 to 09-May-2011 Office Visit - Hypertension, [...] patient cannot control the flow of urine. [facility] On 16-Jan-2010 16:29 to 16:44 Office Visit - Edema (782.3), Hypertensi on, benign (401.1), Obstructive sleep apnea (327.23), Primary pulmonary hypertension (416.0), Asthma (493.90) [facility] On 19-Jan-2009 11:37 to 12:11 Office Visit - Need for prophylactic vac cination and inoculation against combinations of disease (V06.8), Edema (782.3), Hypertension, benign (401.1), Obstructive sleep apnea (327.23), Primary pulmonary hypertension (416.0), Asthma (493.90) [facility] On 20-Dec-2008 15:48 to 16:19 Office Visit - Obstructive sleep apnea ( 327.23), Primary pulmonary hypertension (416.0), Edema (782.3), Malaise and fatigue (780.79), Hypertension, benign (401.1), Hypercholesterolemia (272.0), Encounter for long-term (current) use of other medications (V58.69), Urinary incontinence (788.30) [facility] On 15-Dec-2008 12:50 to 13:16 Insurance * Valente Trujillo ; johanne guarantor * [id number] * [employer] * MedicareB146 * [place] [employer] [facility] * [employer]
--- OUTSIDE RECORDS SUMMARY | 2019-09-03 18:51 | XMS REPORT | Continuity of Care Document ---
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 [employer] Name Role Phone Homar Clifton PP [phone] Katlin Berger Unavailable Abdullahi PERRY, Tuyet Unavailable Unavailable Mau Pereira Unavailable Unavailable Arabella Sauceda Unavailable Unavailable Ashley Kelsey Unavailable Cathryn LAUGHLINN, Eden Hardwick Unavailable Unavailable Anup LAUGHLINN, Rubia Unavailable Ofelia MATUTE, Nneka Unavailable Unavailable Unavailable Problems Name Dates Details ACUTE MAXILLARY SINUSITIS (461.0, J01.00 ) Status: Active ACUTE MAXILLARY SINUSITIS (461.0, J01.00 ) Status: Active Acute sinusitis (461.8, J01.90) Status: Active AGE (ACUTE GASTROENTERITIS) (558.9, K52. 9) Status: Active Allergy to Flomax *GENITOURINARY AGENTS - MISCELLANEOUS* (Renamed from Flomax *GENITOURINARY AGENTS - MISCELLANEOUS*) Status: Active Asthma (493.90, J45.909) Status: Active ATRIAL FIBRILLATION (427.31, I48.91) Status: Active ATRIAL FIBRILLATION WITH RVR (427.31, I4 8.91) Status: Active B12 DEFICIENCY (266.2, E53.8) Status: [...] Atrial fibrillation, chronic) (427.31, I48.2) Status: Active CHRONIC HYPERTENSION (401.9, I10) Status: Active Chronic kidney disease, stage III [...] Status: Active HYPERLIPIDEMIA (272.4, E78.5) Status: Active Hypokalemia (276.8, E87.6) Status: Active [...] (295.90, F20.9) Status: Active SHINGLES (053.9, B02.9) Onset:1982 Status: Active Shortness of breath (786.05, R06.02) [...] for urinary incontinence (OK to use generic) Digox 250 MCG Oral Tablet 1 daily (250 MCG) Active Digoxin 250mcg daily Active Digoxin 250 MCG Oral Tablet 1 (one) Tablet daily for 30 days * Quantity: 30 {Tablet} Refills: 11 Ordered:04-May-2017 Homar Clifton Kali * Start 04-May-2017 Active DILTIAZEM HCL CD, 360MG (Oral Capsule Extended Release 24 Hour) 1 (one) Capsule ER 24HR Capsule ER 24HR daily for 30 days * Quantity: 30 {Capsule} Refills: 5 Ordered:01-Feb-2014 Hemanth Meza MD* Start 24-Aug-2013 Active Comments: 08[facility]09[facility] O[facility]AL[facility], 20MG (Oral Tablet) 1 Tablet daily for 30 days * Quantity: 30 {Tablet} Refills: 2 Ordered:16-Nov-2013 Homra Clifton Kali * Start 16-Nov-2013 Active Comments: [...] Hemanth Meza MD* Start 18-Jul-2013 Active NYSTATIN, 375241XRKL/GM (External Powder) 1 (one) application application two times daily until clear for 0 days * Quantity: 1 {Applicator} Refills: 0 Ordered:04-May-2017 Homar Clifton Kali * Start 15-Jan-2015 Active Comments: Called to Avinash myers [facility]--she will order from [facility].--01/15/15 Khushi OXYBUTYNIN CHLORIDE, 5MG (Oral Tablet) 1 Tablet three times daily for 30 days * Quantity: 90 {Tablet} Refills: 3 Ordered: Hemanth Meza MD* Start Active POTASSIUM CHLORIDE MICHELLE ER, 20MEQ (Oral Tablet Extended Release) 1 Tablet ER daily for 30 days * Quantity: 30 {Tablet_ER} Refills: 12 Ordered:14-Apr-2012 Radha Handy JAEL* Start 14-Apr-2012 Active Comments: for hypokalemia Rivaroxaban [...] Change to 360mg ER daily[facility] DILTIAZEM HCL, 90MG (Oral Tablet) 1 [...] Flonase 50 MCG/ACT Nasal Suspension 2 (two) [place] daily for 10 days * Quantity: 1 {Bottle} Refills: 0 Ordered: Ashley Larry* Start End Inactive Flonase Allergy Relief 50 MCG/ACT Nasal Suspension 2 (two) [place] daily for 30 days * Quantity: 1 [...] Dates Details Edema (782.3, R60.9) Status: Inactive HYPERTENSION (401.9, I10) Status: Inactive HYPERTENSION, BENIGN ESSENTIAL, AGE 0-18 (401.1, I10) Status: Inactive URINARY FREQUENCY (788.41, R35.0) Status: Inactive Procedures Procedure Dates Details XR PARANASAL SINUSES, HWANG VIEW (01889) Ordered: 7 CHEST X-RAY, PA AND LATERAL (92917) Ordered:23-Mar-2017 Flu (Influenza) *: flu shot Ordered:09-Jan-2017 IMMUNIZ ADMNIN, 1 VAC, SNGL/COMBO (67308) Completed:09-Jan-2017 INTRAMUSCULAR ADMINISTRATION OF HIGH DOS E SPLIT VIRUS PRESERVATIVE FREE INFLUENZA VACCINE (42809) Completed:09-Jan-2017 Follow up if no improvement or if symptoms worsen Ordered:September-2016 MRI BRAIN W/O CONTRAST (42703) Ordered:05-Feb-2016 IMMUNIZ ADMN, EA AD VAC SNGL/COMBO (43447) Ordered:31-Jan-20 16 PREVNAR 13 (73124) Completed: 6 Flu (Influenza) *: flu shot Ordered:31-Jan-2016 IMMUNIZ ADMNIN, 1 VAC, SNGL/COMBO (54302) Completed:31-Jan-2016 INTRAMUSCULAR ADMINISTRATION OF HIGH DOS E SPLIT VIRUS PRESERVATIVE FREE INFLUENZA VACCINE (48354) Completed:31-Jan-2016 MRI BRAIN W/O CONTRAST (86314) Ordered:10-Jan-2016 Flu (Influenza) *: flu shot Ordered:16-Jan-2015 IMMUNIZ ADMNIN, 1 VAC, SNGL/COMBO (37964) Completed:16-Jan-2015 INTRAMUSCULAR ADMINISTRATION OF HIGH DOS E SPLIT VIRUS PRESERVATIVE FREE INFLUENZA VACCINE (42101) Completed:16-Jan-2015 Follow up in 2 months Ordered:01-Feb-2014 IMMUNIZATION ADMIN (69903) Completed:Jan-2014 PNEUMOCOCCAL VACCINE (71454) Completed:2 11-Jan-2014 Flu (Influenza) *: flu shot Ordered:31-Jan-2014 IMMUNIZATION ADMIN (84442) Completed:Jan-2014 FLU VACCINE NO PRSV QUADRAVALENT 3 YRS+ (35857) Completed:31-Jan-2014 FOLLOW UP BY PCP Ordered:08-May-2011 IMMUNIZ ADMNIN, 1 VAC, SNGL/COMBO (94839) Ordered: 9 TDAP VACCINE IM, >7 YEARS (85709) Ordered:20-Dec-2008 Gallbladder Surgery - Laparoscopic Surgeries Comments: all 4 wis dom teeth removed in 1983 in [facility]; lap cholecystectomy 197; vasectomy in 1988; open prostatectomy attempt by [facility] in 2005 but due to fear of cutting nerves, they backed off on removing the prostate. Vasectomy Immunization Name Dates Details Influenza (3 years and up) Lot #: [id number] Administered on:13-Jan-2012 Comments: Site: Deltoid ( Left); Given at [facility] by Sherri PERRY Influenza (3 years and up) Lot #: [id number] Administered on:28-Dec-2012 Comments: Site: Deltoid (Right) Influenza, preserv. free, enhanced immun ogncty, IM Lot #: [id number] Administered on:16-Jan-2015 Comments: Site: Deltoid (Right) Influenza, preserv. free, enhanced immun ogncty, IM Lot #: [id number] Administered on:31-Jan-2016 Comments: Site: Deltoid (Left) Influenza, preserv. free, enhanced immun ogncty, IM Lot #: [id number] Administered on:09-Jan-2017 Comments: Site: Deltoid ( Left) Pneumococcal (2 years and up) Lot #: [id number] Administered on:19-Jan-2014 Comments: Site: Deltoid (Right); Admin by Antoinette Sheets RN Pneumococcal conjugate vaccine, 13 floresita t, IM Lot #: [id number] Administered on:31-Jan-2016 Comments: Site: Deltoid (Right) Quadrivalent Influenza Vaccine for 3 yrs & up. Lot #: [id number] Administered on:19-Jan-2014 Comments: Site: Deltoid (Left); Admin by Antoinette Sheets RN Tdap (7 years and up) Lot #: [id number] Administered on:20-Dec-2008 Comments: Site: Deltoid (Left) Family [...] ty. 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 Comments: [facility] Status: Active Vital Signs Date Test Result Details 04-May-2017 12:18 Temperature 98.1 f Comments: Method: T ympanic Pulse 122 /min Comments: Pattern: Regular Respiration Rate 20 /min Comments: Pattern: Unlabored O2 SAT 98 % Comments: Room air BP Systolic 128 mm[Hg] Comments: Patient P osition: Sitting; Cuff Location: Left Arm; Cuff Size: Standard BP Diastolic 82 mm[Hg] Comments: Patient P osition: Sitting; Cuff Location: Left Arm; Cuff Size: Standard Weight 345 lb Height 69 in Body Mass Index Calculated 50.95 kg/m2 Body Surface Area Calculated 2.6 m2 01-Apr-2017 11:19 Temperature 96.9 f Comments: Method: [...] 1 Treatment Plan * Influenza A Ag (19911); Ordered: 03/23/2017; Note: A&B * BASIC METABOLIC PANEL (22867); Ordered: 07/17/2015 * PSA (Medicare) (G0103); Ordered: 07/17/2015 * THEODORE CULTURE-URINE (02314); Ordered: 07/04/2013 * Chem 8 BMP (79090); Ordered: 12/24/2012; Note: STANDING ORDER * CBC (32186); Ordered: 12/21/2012 * Chem 8 BMP (91495); Ordered: 12/21/2012 * VITAMIN D 25 (CALCIFEROL)(28360); Ordered: 05/31/2012 * CBC (55820); Ordered: 01/09/2012 * URINALYSIS, (55502); Ordered: 01/09/2012 * THEODORE CULTURE-URINE (45175); Ordered: 01/09/2012 * BASIC METABOLIC PANEL,BMP (94924); Ordered: 10/31/2011; Note: STANDING ORDER * PHOSPHORUS (63569); Ordered: 10/31/2011 * MAGNESIUM (62005); Ordered: 10/31/2011 * VANCOMYCIN, TROUGH (52878); Ordered: 10/27/2011; Note: STANDING ORDER-Do as directed by the pharmacist. * Chem 8 BMP (08779); Ordered: 10/27/2011; Note: STANDING ORDER * Chem 8 BMP (71447); Ordered: 09/23/2011 * IRON PROFILE*; Ordered: 05/29/2011 * HGB A1C (84481); Ordered: 05/29/2011 * LIPID PANEL (82979); Ordered: 05/28/2011 * PSA (PROSTATE SPECIFIC ANTIGEN) (52310); Ordered: 05/28/2011 * METABOLIC PANEL, BASIC (44763); Ordered: 05/28/2011 * LIVER FUNCTION PANEL* (48948); Ordered: 05/28/2011 * VITAMIN B-12 (CYANOCOBALAMIN) (64001); Ordered: 05/28/2011 * TSH (THYROID STIMULATING HORMONE) (64049); Ordered: 05/28/2011 * VITAMIN D 25 (CALCIFEROL)(32430); Ordered: 05/28/2011 * MAGNESIUM (31710); Ordered: 05/28/2011 * EKG (88569); Ordered: 05/28/2011 * CBC & PLATELETS (AUTO) (35568); Ordered: 05/28/2011 * LIVER FUNCTION PANEL* (52538); Ordered: 01/16/2010 * CBC (26315); Ordered: 01/16/2010 * LIPID PANEL (95365); Ordered: 01/16/2010 * BASIC METABOLIC PANEL,BMP (61235); Ordered: 01/16/2010 * BASIC METABOLIC PANEL,BMP (43907); Ordered: 01/19/2009 * BASIC METABOLIC PANEL,BMP (96481); Ordered: 12/20/2008 * TSH (THYROID STIMULATING HORMONE) (99086); Ordered: 12/15/2008 * VITAMIN D, 25 (CALCIFEROL) (24116); Ordered: 12/15/2008 * CBC (56150); Ordered: 12/15/2008 * BASIC METABOLIC PANEL,BMP (64029); Ordered: 12/15/2008 * LIVER FUNCTION PANEL* (72603); Ordered: 12/15/2008 * LIPID PANEL (03255); Ordered: 12/15/2008 Advance Directives * Consent of Care Agreement - Effective on 03/23/2017. Expiration date unspecified. Scanned Document is available upon request. Effective: 23-Mar-2017 Encounters Transition of Care - ATRIAL FIBRILLATION WITH RVR (427.31 | I48.91), AGE (ACUTE GASTROENTERITIS) (558.9 | K52.9), CHRONIC HYPERTENSION (401.9 | I10), SCHIZOPHRENIA (295.90 | F20.9), BILATERAL EDEMA OF LOWER EXTREMITY (782.3 | R60.0) Encounter Reason: Transition into [facility] 04-May-2017 to 08-May-2017 Office Visit - ACUTE MAXILLARY SINUSITIS (461.0 | J01.00), RIGHT LOWER LOBE PNEUMONIA (486 | J18.1), COUGH (786.2 | R05), FEVER (780.60 | R50.9) Encounter Reason: General Adult Exam - Last seen less than 1 month ago. General health: feels well with minor complaints. The patient's appetite is normal. Nutrition: normal/adequate. Exercises 0 days per week. Note for "General adult exam": Paient here for routine visit for [facility]. He reports "I am just not feeling the best"[facility] 01-Apr-2017 to 07-Apr-2017 Office Visit - RIGHT LOWER LOBE PNEUMONI A (486 | J18.1), FEVER (780.60 | R50.9), ACUTE MAXILLARY SINUSITIS (461.0 | J01.00), COUGH (786.2 | R05) Encounter Reason: Pneumonia, Bacterial - Note for "Bacterial pneumonia": pt here for pneumonia f/u. feeling better. still coughing. fever resolved.[facility] On 27-Mar-2017 15:24 to 15:44 Office Visit [...] fever present. [facility]-2017 to 24-Mar-2017 Medication Note - Chronic atrial fibrill ation (Renamed from Atrial fibrillation, chronic) (427.31 | I48.2) [facility] On 09-Feb-2017 16:52 to 16:56 Nurse visit (Non-Billable) - FLU VACCINE - HIGH DOSE (Renamed from NEED FOR IMMUNIZATION AGAINST INFLUENZA) (V04.81 | Z23) [facility] On 09-Jan-2017 17:53 to 17:54 Office Visit - COMMON COLD VIRUS (460 | J00) Encounter Reason: Sinusitis - Symptoms include nasal congestion, postnasal drainage, forehead pressure and cough. Onset was sudden 1 day(s) ago. The symptoms occur constantly. The patient describes this as moderate in severity and worsening. Associated symptoms include chills and sore throat.[facility] to Office Visit - ACUTE MAXILLARY SINUSITIS (461.0 | J01.00) Encounter Reason: Sinus Congestion - Symptoms include clear rhinorrhea, cheek pain, cheek pressure and cough, while symptoms do not include ear pain or headache. Onset was 4 day(s) ago. Note for "Sinusitis": pt having sinus pain and c/o eye pressure. [facility] 20-May[facility]2016 Office Visit - BENIGN [...] has had this dressing on for one week.[facility] 05-Feb-2016 to 08-Feb-2016 Nurse Visit - FLU VACCINE - HIGH DOSE (R enamed from NEED FOR IMMUNIZATION AGAINST INFLUENZA) (V04.81 | Z23), PREVNAR 13 (Renamed from NEED FOR VACCINATION WITH 13-POLYVALENT PNEUMOCOCCAL CONJUGATE VACCINE) (V03.82 | Z23) [facility] On 31-Jan-2016 18:14 to 18:16 Office Visit [...] it. after taking bath, scab fell off. [facility] On 25-Jan-2016 11:30 to 13:42 Annotation/Addendum - SCHIZOPHRENIA (295 .90 | F20.9) [facility] On 10-Jan-2016 15:30 to 15:38 Office Visit [...] | K59.09), Hypokalemia (276.8) (276.8 | E87.6) [facility] 17-Jul-2015 to 01-Aug-2015 Nurse Visit - FLU VACCINE - HIGH DOSE (R enamed from NEED FOR IMMUNIZATION AGAINST INFLUENZA) (V04.81 | Z23) [facility] On 16-Jan-2015 17:35 to 17:37 Medication Note - OBESITY, MORBID (278.0 1 | E66.01) [facility] On 15-Jan-2015 14:58 to 16:31 Office Visit - Edema (782.3) (782.3 | R6 0.9), URINARY FREQUENCY (788.41 | R35.0) Encounter Reason: General Exam, Follow Up - Note for "Follow up general exam": Pt here from [facility] [place] for 60 day check up. no concerns.[facility] 01-Feb-2014 to 03-Feb-2014 Nurse visit (Non-Billable) - Pneumococca l vaccination (V03.82) 5 years + [facility] On 31-Jan-2014 17:21 to 17:23 Nurse visit (Non-Billable) - FLU VACCINE - QUADRAVALENT (Renamed from NEED FOR IMMUNIZATION AGAINST INFLUENZA) (V04.81 | Z23) [facility] On 31-Jan-2014 16:06 to 16:27 Medication Note - HYPERTENSION (401.9 | I10) [facility] On 24-Aug-2013 12:17 to 15:01 Office Visit [...] for "General - Male": Pt lives at [facility]. No chest pain or shortness of air. Pt has hx of prostate cancer. Is currently in treatment. Never had screening colonoscopy. No family history of colon cancer. No blood in stools.[facility] 11-Aug-2013 to 18-Aug-2013 Annotation/Addendum - Unspecified Diagno sis [facility] On 04-Jul-2013 11:55 to 11:58 Office Visit - Obstructive sleep apnea ( 327.23), Chronic atrial fibrillation (Renamed from Atrial fibrillation, chronic) (427.31 | I48.2), Hypertension, benign (401.1), Edema (782.3) (782.3 | R60.9) [facility] 15:29 to 15:54 Office Visit - Edema (782.3), Obstructiv e sleep apnea (327.23), Hypertension, benign (401.1), Chronic atrial fibrillation (427.31) Encounter Reason: [facility]-Jan-2013 to 03-Feb-2013 Office Visit - Edema (782.3), Obstructiv e sleep apnea (327.23), Hypertension, benign (401.1), Renal insufficiency (593.9) Encounter Reason: [facility]itis[facility] 12-Jan-2013 to 18-Jan-2013 Office Visit - Edema (782.3), Heart fail ure, right (428.0), Obstructive sleep apnea (327.23) Encounter Reason: [facility] 29-Dec-2012 to 04-Jan-2013 Office Visit - Cellulitis and abscess of leg (682.6), Heart failure, right (428.0), Edema (782.3) Encounter Reason: [facility] 24-Dec-2012 15:42 to 16:19 Office Visit - Cellulitis and abscess of leg (682.6), Heart failure, right (428.0), Edema (782.3) Encounter Reason: Cellulitis - The last clinic visit was 1 week(s) ago. Symptoms include swelling, tenderness and drainage. Symptoms are located on the right leg. The symptoms occur constantly. The patient describes this as worsening. [facility] 21-Dec-2012 to 22-Dec-2012 Medication Note - ANXIETY AND DEPRESSION (300.4) [facility] On 07-Dec-2012 13:57 to 14:02 Medication Note - Delusional disorder (2 97.1) [facility] On 25-Nov-2012 15:07 to 16:36 Office Visit - Chronic atrial fibrillati on (427.31), Obstructive sleep apnea (327.23), Delusional disorder (297.1) [facility] to Office Visit - Hypertension, benign (401 .1), Chronic atrial fibrillation (427.31), Obstructive sleep apnea (327.23), Delusional disorder (297.1) Encounter Reason: Medication Review/Refill - Note for "Medication Review/Refill": [facility] Medication Note - Hypertension, benign ( 401.1) [facility] On 29-Jun-2012 15:53 to 15:54 Annotation/Addendum - Vitamin B 12 defic iency (266.2) [facility] 22-Jun-2012 to 23-Jun-2012 Annotation/Addendum - Heart failure, rig ht (428.0) [facility] On 07-Jun-2012 13:12 to 22:44 Annotation/Addendum - Vitamin D deficien cy (268.9) [facility] 31-May-2012 to 01-Jun-2012 Annotation/Addendum - Hypokalemia (276.8 ) [facility] On 16-Mar-2012 10:49 to 10:50 Medication Note - Chronic atrial fibrill ation (427.31) [facility] On 30-Jan-2012 11:29 to 11:31 Annotation/Addendum [facility] On 19-Jan-2012 12:00 to 12:03 Annotation/Addendum - Hematuria (599.70) [facility] On 09-Jan-2012 15:02 to 15:42 Annotation/Addendum - Edema (782.3) [facility] On 25-Nov-2011 12:08 to 12:09 Office Visit - Fibrillation, atrial (427 .31), Edema (782.3), Obstructive sleep apnea (327.23), Hypertension, benign (401.1), Type II diabetes mellitus (250.00) [facility] 18-Nov-2011 to 19-Nov-2011 Office Visit - Edema (782.3), Cellulitis and abscess of leg (682.6), Obstructive sleep apnea (327.23), Fibrillation, atrial (427.31), Stasis dermatitis (454.1), Conjunctivitis NOS (372.30) [facility] 05-Nov-2011 to 06-Nov-2011 Office Visit - Cellulitis and abscess of leg (682.6), Chronic kidney disease, stage III (moderate) (585.3), Edema (782.3), Obstructive sleep apnea (327.23), Hypertension, benign (401.1), Fibrillation, atrial (427.31), Encounter for long- term (current) use of other medications (V58.69) [facility] to Office Visit - Edema (782.3), Cellulitis and abscess of leg (682.6), Stasis dermatitis (454.1), Chronic kidney disease, stage III (moderate) (585.3), Encounter for long-term (current) use of other medications (V58.69), 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) Encounter Reason: Ankle Swelling - Patient has had swelling in bilateral feet and ankles with rednessand abdomen has some redness to it [facility] to Annotation/Addendum - Chronic kidney dis ease, stage III (moderate) (585.3) [facility] On 11:38 to 11:41 Annotation/Addendum - Renal failure (ARF ), acute on chronic (584.9) [facility] On 12:57 to 12:58 Office Visit - Fibrillation, atrial (427 .31), Type II diabetes mellitus (250.00), Obstructive sleep apnea (327.23), Hypertension, benign (401.1) [facility] to Annotation/Addendum [facility] On 12:43 to 12:54 Office Visit - Type II diabetes mellitus (250.00), Fibrillation, atrial (427.31), Hypertension, benign (401.1), Obstructive sleep apnea (327.23) [facility] to Medication Note - Unspecified Diagnosis [facility] On 22-Jul-2011 10:19 to 10:27 Annotation/Addendum - Type II diabetes m rahulitus (250.00), Iron deficiency anemia (280.9) [facility] On 29-May-2011 13:55 to 13:58 Office Visit - Fibrillation, atrial (427 .31) [facility] On 28-May-2011 13:17 to 13:41 Office Visit - Hypertension, benign (401 .1), Primary pulmonary hypertension (416.0), Obstructive sleep apnea (327.23), Edema (782.3), Fibrillation, atrial (427.31), Encounter for long-term (current) use of other medications (V58.69), Magnesium deficiency (275.2), Osteomalacia (268.2), Malaise and fatigue (780.79), Benign prostatic hypertrophy with urinary retention (600.01), CA of prostate (185), Hypercholesterolemia (272.0) [facility] 28-May-2011 to 29-May-2011 Annotation/Addendum [facility] On 20-May-2011 11:13 to 11:14 Office Visit-Pre [...] Associated symptoms include leg pain and edema. [facility] On 16-May-2011 12:42 to 13:20 Office Visit [...] and talking. Symptoms are relieved by sitting up.[facility] 08-May-2011 to 09-May-2011 Office Visit - Hypertension, [...] patient cannot control the flow of urine. [facility] On 16-Jan-2010 16:29 to 16:44 Office Visit - Edema (782.3), Hypertensi on, benign (401.1), Obstructive sleep apnea (327.23), Primary pulmonary hypertension (416.0), Asthma (493.90) [facility] On 19-Jan-2009 11:37 to 12:11 Office Visit - Need for prophylactic vac cination and inoculation against combinations of disease (V06.8), Edema (782.3), Hypertension, benign (401.1), Obstructive sleep apnea (327.23), Primary pulmonary hypertension (416.0), Asthma (493.90) [facility] On 20-Dec-2008 15:48 to 16:19 Office Visit - Obstructive sleep apnea ( 327.23), Primary pulmonary hypertension (416.0), Edema (782.3), Malaise and fatigue (780.79), Hypertension, benign (401.1), Hypercholesterolemia (272.0), Encounter for long-term (current) use of other medications (V58.69), Urinary incontinence (788.30) [facility] On 15-Dec-2008 12:50 to 13:16 Insurance * Valente Trujillo ; johanne guarantor * [id number] * [employer] * MedicareB146 * [employer] Pt B * [facility]
--- OUTSIDE RECORDS SUMMARY | 2019-09-03 18:52 | XMS REPORT | Continuity of Care Document ---
Author Author [facility] Address [address] [place] [address] Phone Care Team Providers Care Licensed Insurance Sales Agent Name Role Phone Homar Clifton PP [phone] Katlin Berger Unavailable Abdullahi PERRY, Tuyet Unavailable [...] Hemanth Meza MD* Start 18-Jul-2013 Active [employer], [id number] (External Powder) 1 (one) application application two times daily until clear for 0 days * Quantity: 1 {Applicator} Refills: 0 Ordered: Homar Clifton Kali * Start 15-Jan-2015 Active Comments: Called to Avinash myers [facility]--she will order from [employer]--01/15/15 Khushi OXYBUTYNIN CHLORIDE, 5MG (Oral Tablet) 1 [...] * Quantity: 30 {Capsule} Refills: 6 Ordered:24-Aug-2013 aSra Jennings LPN* Start 09-Aug-2013 End 24-Aug-2013 Inactive Comments: 08/09/13 Change to 360mg ER daily[facility]MAN DILTIAZEM HCL, 90MG (Oral [...] Flonase 50 MCG/ACT Nasal Suspension 2 (two) [employer] daily for 10 days * Quantity: 1 {Bottle} Refills: 0 Ordered: Ashley Larry* Start End Inactive Flonase Allergy Relief 50 MCG/ACT Nasal Suspension 2 (two) [employer] daily for 30 days * Quantity: 1 [...] symptoms worsen Ordered:September-2016 MRI BRAIN W/O CONTRAST (37764) Ordered:05-Feb-2016 IMMUNIZ ADMN, EA AD VAC SNGL/COMBO (35727) Ordered:31-Jan-20 16 PREVNAR 13 (25996) Completed: 6 Flu (Influenza) *: flu shot Ordered:31-Jan-2016 IMMUNIZ ADMNIN, 1 VAC, SNGL/COMBO (12985) Completed:31-Jan-2016 INTRAMUSCULAR ADMINISTRATION OF HIGH DOS E SPLIT VIRUS PRESERVATIVE FREE INFLUENZA VACCINE (49302) Completed:31-Jan-2016 MRI BRAIN W/O CONTRAST (67043) Ordered:10-Jan-2016 Flu (Influenza) *: flu shot Ordered:16-Jan-2015 IMMUNIZ ADMNIN, 1 VAC, SNGL/COMBO (46925) Completed:16-Jan-2015 INTRAMUSCULAR ADMINISTRATION OF HIGH DOS E SPLIT VIRUS PRESERVATIVE FREE INFLUENZA VACCINE (33458) Completed:16-Jan-2015 Follow up in 2 months Ordered:01-Feb-2014 IMMUNIZATION ADMIN (58440) Completed:Jan-2014 PNEUMOCOCCAL VACCINE (29307) Completed:2 11-Jan-2014 Flu (Influenza) *: flu shot Ordered:31-Jan-2014 IMMUNIZATION ADMIN (06998) Completed:Jan-2014 FLU VACCINE NO PRSV QUADRAVALENT 3 YRS+ (60854) Completed:31-Jan-2014 FOLLOW UP BY PCP Ordered:2-Feb-2012 IMMUNIZ ADMNIN, 1 VAC, SNGL/COMBO (47706) Ordered: 9 TDAP VACCINE IM, >7 YEARS (82372) Ordered:20-Dec-2008 Gallbladder Surgery - Laparoscopic Surgeries Comments: all 4 wis dom teeth removed in 1983 in [facility]; lap cholecystectomy 197; vasectomy in 1988; open prostatectomy attempt by [facility] in 2005 but due to fear of cutting nerves, they backed off on removing the prostate. Vasectomy Immunization Name Dates Details Influenza (3 years and up) Lot #: [id number] Administered on:13-Jan-2012 Comments: Site: Deltoid ( Left); Given at [facility] by Sherri PERRY Influenza (3 years and up) Lot #: [id number] Administered on:28-Dec-2012 Comments: Site: Deltoid (Right) Influenza, preserv. free, enhanced immun ogncty, IM Lot #: [id number] Administered on:16-Jan-2015 Comments: Site: Deltoid (Right) Influenza, preserv. free, enhanced immun ogncty, IM Lot #: [id number] Administered on:31-Jan-2016 Comments: Site: Deltoid (Left) Pneumococcal (2 years and up) Lot #: [id number] Administered on:19-Jan-2014 Comments: Site: Deltoid (Right); Admin by Antoinette Sheets RN Pneumococcal conjugate vaccine, 13 floresita t, IM Lot #: [id number] Administered on:31-Jan-2016 Comments: Site: Deltoid (Right) Quadrivalent Influenza Vaccine for 3 yrs & up. Lot #: [id number] Administered on:19-Jan-2014 Comments: Site: Deltoid (Left); Admin by Antoinette Sheets RN Tdap (7 years and up) Lot #: [id number] Administered on:20-Dec-2008 Comments: Site: Deltoid (Left) Family [...] Comments: Status: Active Most Recent Primary Occupation: [employer]. 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 Comments: [facility] Status: Active Vital Signs Date Test Result [...] 1 Treatment Plan * BASIC METABOLIC PANEL (82859); Ordered: 07/17/2015 * PSA (Medicare) (G0103); Ordered: 07/17/2015 * THEODORE CULTURE-URINE (38439); Ordered: 07/04/2013 * Chem 8 BMP (36833); Ordered: 12/24/2012; Note: STANDING ORDER * CBC (78436); Ordered: 12/21/2012 * Chem 8 BMP (17071); Ordered: 12/21/2012 * VITAMIN D 25 (CALCIFEROL)(49127); Ordered: 05/31/2012 * CBC (61502); Ordered: 01/09/2012 * URINALYSIS, (55798); Ordered: 01/09/2012 * THEODORE CULTURE-URINE (29036); Ordered: 01/09/2012 * BASIC METABOLIC PANEL,BMP (64061); Ordered: 10/31/2011; Note: STANDING ORDER * PHOSPHORUS (38154); Ordered: 10/31/2011 * MAGNESIUM (27738); Ordered: 10/31/2011 * VANCOMYCIN, TROUGH (13034); Ordered: 10/27/2011; Note: STANDING ORDER-Do as directed by the pharmacist. * Chem 8 BMP (18963); Ordered: 10/27/2011; Note: STANDING ORDER * Chem 8 BMP (62659); Ordered: 09/23/2011 * IRON PROFILE*; Ordered: 05/29/2011 * HGB A1C (12782); Ordered: 05/29/2011 * LIPID PANEL (84559); Ordered: 05/28/2011 * PSA (PROSTATE SPECIFIC ANTIGEN) (97844); Ordered: 05/28/2011 * METABOLIC PANEL, BASIC (14016); Ordered: 05/28/2011 * LIVER FUNCTION PANEL* (46005); Ordered: 05/28/2011 * VITAMIN B-12 (CYANOCOBALAMIN) (31528); Ordered: 05/28/2011 * TSH (THYROID STIMULATING HORMONE) (07660); Ordered: 05/28/2011 * VITAMIN D 25 (CALCIFEROL)(35510); Ordered: 05/28/2011 * MAGNESIUM (85121); Ordered: 05/28/2011 * EKG (07915); Ordered: 05/28/2011 * CBC & PLATELETS (AUTO) (22740); Ordered: 05/28/2011 * LIVER FUNCTION PANEL* (19979); Ordered: 01/16/2010 * CBC (48458); Ordered: 01/16/2010 * LIPID PANEL (49156); Ordered: 01/16/2010 * BASIC METABOLIC PANEL,BMP (32402); Ordered: 01/16/2010 * BASIC METABOLIC PANEL,BMP (97050); Ordered: 01/19/2009 * BASIC METABOLIC PANEL,BMP (16469); Ordered: 12/20/2008 * TSH (THYROID STIMULATING HORMONE) (27231); Ordered: 12/15/2008 * VITAMIN D, 25 (CALCIFEROL) (03417); Ordered: 12/15/2008 * CBC (05322); Ordered: 12/15/2008 * BASIC METABOLIC PANEL,BMP (39479); Ordered: 12/15/2008 * LIVER FUNCTION PANEL* (02916); Ordered: 12/15/2008 * LIPID PANEL (55994); Ordered: 12/15/2008 Advance Directives * Consent of [...] worsening. Associated symptoms include chills and sore throat.[facility] to Office Visit - ACUTE MAXILLARY SINUSITIS (461.0 | J01.00) Encounter Reason: Sinus Congestion - Symptoms include clear rhinorrhea, cheek pain, cheek pressure and cough, while symptoms do not include ear pain or headache. Onset was 4 day(s) ago. Note for "Sinusitis": pt having sinus pain and c/o eye pressure. [facility] 20-May-2016 Office Visit [...] has had this dressing on for one week.[facility] 05-Feb-2016 to 08-Feb-2016 Nurse Visit - FLU VACCINE - HIGH DOSE (R enamed from NEED FOR IMMUNIZATION AGAINST INFLUENZA) (V04.81 | Z23), PREVNAR 13 (Renamed from NEED FOR VACCINATION WITH 13-POLYVALENT PNEUMOCOCCAL CONJUGATE VACCINE) (V03.82 | Z23) [facility] On 31-Jan-2016 18:14 to 18:16 [...] it. after taking bath, scab fell off. [facility] On 25-Jan-2016 11:30 to 13:42 Annotation/Addendum - SCHIZOPHRENIA (295 .90 | F20.9) [facility] On 10-Jan-2016 15:30 to 15:38 [...] Hypokalemia (276.8) (276.8 | E87.6) [facility] 17-Jul-2015 to 01-Aug-2015 Nurse Visit - FLU VACCINE - HIGH DOSE (R enamed from NEED FOR IMMUNIZATION AGAINST INFLUENZA) (V04.81 | Z23) [facility] On 16-Jan-2015 17:35 to 17:37 Medication Note - OBESITY, MORBID (278.0 1 | E66.01) [facility] On 15-Jan-2015 14:58 to 16:31 Office Visit - Edema (782.3) (782.3 | R6 0.9), URINARY FREQUENCY (788.41 | R35.0) Encounter Reason: General Exam, Follow Up - Note for "Follow up general exam": Pt here [facility] for 60 day check up. no concerns.[facility] 01-Feb-2014 to 03-Feb-2014 Nurse visit (Non-Billable) - Pneumococca l vaccination (V03.82) 5 years + [facility] On 31-Jan-2014 17:21 to 17:23 Nurse visit (Non-Billable) - FLU VACCINE - QUADRAVALENT (Renamed from NEED FOR IMMUNIZATION AGAINST INFLUENZA) (V04.81 | Z23) [facility] On 31-Jan-2014 16:06 to 16:27 Medication Note - HYPERTENSION (401.9 | I10) [facility] On 24-Aug-2013 12:17 to 15:01 [...] colon cancer. No blood in stools.[facility] 11-Aug-2013 to 18-Aug-2013 Annotation/Addendum - Unspecified Diagno sis [facility] On 04-Jul-2013 11:55 to 11:58 Office Visit - Obstructive sleep apnea ( 327.23), Chronic atrial fibrillation (Renamed from Atrial fibrillation, chronic) (427.31 | I48.2), Hypertension, benign (401.1), Edema (782.3) (782.3 | R60.9) Encounter Reason[facility] On 22-Feb-2013 15:29 to 15:54 Office Visit - Edema (782.3), Obstructiv e sleep apnea (327.23), Hypertension, benign (401.1), Chronic atrial fibrillation (427.31) Encounter Reason: Review [facility] resultsNov[facility] 25-Jan-2013 to 03-Feb-2013 Office Visit - Edema (782.3), Obstructiv e sleep apnea (327.23), Hypertension, benign (401.1), Renal insufficiency (593.9) Encounter Reason: Cell[facility]itisNov[facility] 12-Jan-2013 to 18-Jan-2013 Office Visit - Edema (782.3), Heart fail ure, right (428.0), Obstructive sleep apnea (327.23) Encounter Reason: [facility]itisNov[facility] 29-Dec-2012 to 04-Jan-2013 Office Visit - Cellulitis and abscess of leg (682.6), Heart failure, right (428.0), Edema (782.3) Encounter Reason: [facility]itisNov[facility] On 24-Dec-2012 15:42 to 16:19 Office Visit - Cellulitis and abscess of leg (682.6), Heart failure, right (428.0), Edema (782.3) Encounter Reason: Cellulitis - The last clinic visit was 1 week(s) ago. Symptoms include swelling, tenderness and drainage. Symptoms are located on the right leg. The symptoms occur constantly. The patient describes this as worsening. [facility] 21-Dec-2012 to 22-Dec-2012 Medication Note - ANXIETY AND DEPRESSION (300.4) [facility] On 07-Dec-2012 13:57 to 14:02 Medication Note - Delusional disorder (2 97.1) [facility] On 25-Nov-2012 15:07 to 16:36 Office Visit - Chronic atrial fibrillati on (427.31), Obstructive sleep apnea (327.23), Delusional disorder (297.1) [facility] to Office Visit - Hypertension, benign (401 .1), Chronic atrial fibrillation (427.31), Obstructive sleep apnea (327.23), Delusional disorder (297.1) Encounter Reason: Medication Review/Refill - Note for "Medication Review/Refill": [facility]uiarNov[facility] to Medication Note - Hypertension, benign ( 401.1) [facility] On 29-Jun-2012 15:53 to 15:54 Annotation/Addendum - Vitamin B 12 defic iency (266.2) [facility] 22-Jun-2012 to 23-Jun-2012 Annotation/Addendum - Heart failure, rig ht (428.0) [facility] On 07-Jun-2012 13:12 to 22:44 Annotation/Addendum - Vitamin D deficien cy (268.9) [facility] 31-May-2012 to 01-Jun-2012 Annotation/Addendum - Hypokalemia (276.8 ) [facility] On 16-Mar-2012 10:49 to 10:50 Medication Note - Chronic atrial fibrill ation (427.31) [facility] On 30-Jan-2012 11:29 to 11:31 Annotation/Addendum [facility] On 19-Jan-2012 12:00 to 12:03 Annotation/Addendum - Hematuria (599.70) [facility] On 09-Jan-2012 15:02 to 15:42 Annotation/Addendum - Edema (782.3) [facility] On 25-Nov-2011 12:08 to 12:09 Office Visit - Fibrillation, atrial (427 .31), Edema (782.3), Obstructive sleep apnea (327.23), Hypertension, benign (401.1), Type II diabetes mellitus (250.00) [facility] 18-Nov-2011 to 19-Nov-2011 Office Visit - Edema (782.3), Cellulitis and abscess of leg (682.6), Obstructive sleep apnea (327.23), Fibrillation, atrial (427.31), Stasis dermatitis (454.1), Conjunctivitis NOS (372.30) [facility] 05-Nov-2011 to 06-Nov-2011 Office Visit - Cellulitis and abscess of leg (682.6), Chronic kidney disease, stage III (moderate) (585.3), Edema (782.3), Obstructive sleep apnea (327.23), Hypertension, benign (401.1), Fibrillation, atrial (427.31), Encounter for long- term (current) use of other medications (V58.69) [facility] to Office Visit - Edema (782.3), Cellulitis and abscess of leg (682.6), Stasis dermatitis (454.1), Chronic kidney disease, stage III (moderate) (585.3), Encounter for long-term (current) use of other medications (V58.69), 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) Encounter Reason: Ankle Swelling - Patient has had swelling in bilateral feet and ankles with rednessand abdomen has some redness to it [facility] Annotation/Addendum - Chronic kidney dis ease, stage III (moderate) (585.3) [facility] On 11:38 to 11:41 Annotation/Addendum - Renal failure (ARF ), acute on chronic (584.9) [facility] On 12:57 to 12:58 Office Visit - Fibrillation, atrial (427 .31), Type II diabetes mellitus (250.00), Obstructive sleep apnea (327.23), Hypertension, benign (401.1) [facility] to Annotation/Addendum [facility] On 12:43 to 12:54 Office Visit - Type II diabetes mellitus (250.00), Fibrillation, atrial (427.31), Hypertension, benign (401.1), Obstructive sleep apnea (327.23) [facility] to Medication Note - Unspecified Diagnosis [facility] On 22-Jul-2011 10:19 to 10:27 Annotation/Addendum - Type II diabetes m ellitus (250.00), Iron deficiency anemia (280.9) [facility] On 29-May-2011 13:55 to 13:58 Office Visit - Fibrillation, atrial (427 .31) [facility] On 28-May-2011 13:17 to 13:41 Office Visit - Hypertension, benign (401 .1), Primary pulmonary hypertension (416.0), Obstructive sleep apnea (327.23), Edema (782.3), Fibrillation, atrial (427.31), Encounter for long-term (current) use of other medications (V58.69), Magnesium deficiency (275.2), Osteomalacia (268.2), Malaise and fatigue (780.79), Benign prostatic hypertrophy with urinary retention (600.01), CA of prostate (185), Hypercholesterolemia (272.0) [facility] 28-May-2011 to 29-May-2011 Annotation/Addendum [facility] On 20-May-2011 11:13 to 11:14 [...] include leg pain and edema. [facility] On 16-May-2011 12:42 to 13:20 [...] Symptoms are relieved by sitting up.[facility] 08-May-2011 to 09-May-2011 Office Visit [...] control the flow of urine. [facility] On 16-Jan-2010 16:29 to 16:44 Office Visit - Edema (782.3), Hypertensi on, benign (401.1), Obstructive sleep apnea (327.23), Primary pulmonary hypertension (416.0), Asthma (493.90) [facility] On 19-Jan-2009 11:37 to 12:11 Office Visit - Need for prophylactic vac cination and inoculation against combinations of disease (V06.8), Edema (782.3), Hypertension, benign (401.1), Obstructive sleep apnea (327.23), Primary pulmonary hypertension (416.0), Asthma (493.90) [facility] On 20-Dec-2008 15:48 to 16:19 Office Visit - Obstructive sleep apnea ( 327.23), Primary pulmonary hypertension (416.0), Edema (782.3), Malaise and fatigue (780.79), Hypertension, benign (401.1), Hypercholesterolemia (272.0), Encounter for long-term (current) use of other medications (V58.69), Urinary incontinence (788.30) [facility] On 15-Dec-2008 12:50 to 13:16 Insurance * Valente Trujillo ; a guarantor * MedicareA115 * [employer] * MedicareB146 * Blue Cross Pt [employer] * [employer] * [employer] Primary Preferred Three Tier * [employer] Primary Preferred Three Tier * [facility] * [facility] [place] [facility] * 2014ZE * [employer] MED-D PDP LOW
--- OUTSIDE RECORDS SUMMARY | 2019-09-03 18:53 | XMS REPORT | Continuity of Care Document ---
Author Organization Unknown Address [address] [place] [id number] Phone Unavailable Care Team Providers Care Maint Mechanic Name Role Phone MARSHA SRIDHAR PCP Insurance Providers Guarantor Valente Limon Jr Address [address] [place] [id number] Payer Medicare Policy Number [id number] Subscriber's Name Valente Limon Jr Relationship Self / Same As Patient Effective Date 13 Payer [facility] Policy Number [id number] Subscriber's Name Valente Limon Jr Relationship Self / Same As Patient Advance Directives Directive Response Recorded Date/Time Resuscitation Status Full Code 09/07/17 9:13am Problems Medical Problem Onset Date Status Acute renal failure Unknown Anemia Unknown Atrial fibrillation 01/17/2012 Acute Atrial fibrillation with RVR Unknown Acute Bradycardia 01/17/2012 Acute Contusion of leg, right Unknown Acute Dyslipidemia Unknown GERD (gastroesophageal reflux disease) Unknown Gastroenteritis Unknown Acute Hypertension Unknown Hypokalemia Unknown Acute Hyponatremia Unknown Hypotension due to drugs Unknown Knee contusion Unknown Acute Schizophrenia Unknown 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 Medications Current Home Medications Medication Dose Units Route Directions Days Qty Instructio ns Start Date Aripiprazole (Abilify) 10 Mg Tablet 10 Mg Oral Aspirin 81 Mg Tablet 81 Mg Oral Daily Atorvastatin Calcium 40 Mg Tablet 40 Mg Oral Bedtime Digoxin 250 Mcg Tablet 250 Mcg Oral Daily Diltiazem Hcl (Diltiazem 24HR Cd) 180 Mg Cap.er.24h 180 Mg Oral Twice Daily Docusate Sodium (Colace) 100 Mg Capsule 100 Mg Oral Daily Famotidine (Pepcid Ac) 20 Mg Tab.chew 20 Mg Oral Daily Furosemide (Lasix) 80 Mg Tablet 80 Mg Oral Twice Daily Ipratropium/Albuterol Sulfate (Duoneb 0.5 Mg-3 Mg/3 Ml Soln) 3 Ml Ampul.neb 3 Ml Inhalation Bid Metoprolol Tartrate 50 Mg Tablet 50 Mg Oral Bid Oxybutynin Chloride 5 Mg Tablet 5 Mg Oral Three Times Irene y Rivaroxaban (Xarelto) 20 Mg Tablet 20 Mg Oral Daily Social History Social History Problem Response Recorded Date/Time Onset Date Status Hx Psychiatric Problems Y - behavior issues; depress ion; schizoaffective disorder 09/06/2017 2:00pm Not Applicable Not Applicable Hx Eating Disorder No 09/06/2017 2:00pm Not Applicable No t Applicable Hx Substance Use Disorder No 09/06/2017 2:00pm Not Applic able Not Applicable Hx Bipolar Disorder No 09/06/2017 2:00pm Not Applicable N ot Applicable Hx Depression Yes 09/06/2017 2:00pm Not Applicable Not Efrain licable Hx Anxiety Yes 09/06/2017 2:00pm Not Applicable Not Appl icable Hx Behavior Problems Yes 09/06/2017 2:00pm Not Applicable Not Applicable Hx Psychiatric Treatment No 09/06/2017 2:00pm Not Applica ble Not Applicable Hx Substance Use Treatment No 09/06/2017 2:00pm Not Appli cable Not Applicable Hx Community Resource Use Y - lives at [facility] 06/2017 2:00pm Not Applicable Not Applicable Hx Alcohol Use No 09/06/2017 2:00pm Not Applicable Not Ap plicable Hx Substance Use No 09/06/2017 2:00pm Not Applicable Not Applicable Hx Physical Abuse No 09/06/2017 2:00pm Not Applicable Not Applicable Hx Suicide Attempt No 09/06/2017 2:00pm Not Applicable No t Applicable Hx Sleep Difficulties No 09/06/2017 2:00pm Not Applicable Not Applicable Hospital Discharge Instructions No hospital discharge instruction information available. Plan of Care Discharge Date 01/04/18 11:59pm Prescriptions See Medication Section Functional Status No functional status information available. Allergies, Adverse Reactions, Alerts No known allergies. Immunizations Query Response on File Recorded Date/Time Hx Influenza Vaccination Y - fall 2017 09/06/17 2:00pm Hx Pneumococcal Vaccination Y - x2 09/06/17 2:0 0pm Hx Tetanus, Diphtheria Vaccination No 09/06 2:00pm Hx Diphtheria, Pertussis, Tetanus Vaccination Up To Date 09/06/17 2:00pm Hx Measles, Mumps, Rubella Vaccination Up To Date 0 09/06/17 2:00pm Hx Varicella Vaccination Up To Date 09/06/17 2:00pm Hx Hepatitis A Vaccination No 09/06/17 2:00 pm Hx Hepatitis B Vaccination Up To Date 09/06/17 2:00 pm Hx Meningococcal Vaccination No 09/06/17 2: 00pm Hx Rabies Vaccination No 09/06/17 2:00pm Vital Signs No vital sign information available. Results Laboratory Results Test Name Result Units Flags Reference Collection Date/Time Result Date/Time Comments Urine Protein Confirmation 3+ NEGATIVE 09/08/2017 7 :34pm 09/08/2017 9:35pm Urine RBC >100 /HPF A 0-3 09/08/2017 7:34pm 09/08/2017 9 :47pm Urine WBC 0-3 /HPF 0-3 09/08/2017 7:34pm 09/08/2017 9 :47pm Urine Epithelial Cells NONE SEEN /LPF NEGATIVE 018 7:34pm 09/08/2017 9:47pm Urine Amorphous Sediment NONE 09/08/2017 7:34 pm 09/08/2017 9:47pm Urine Bacteria RARE /HPF A NEGATIVE 09/08/2017 7:34pm 2017 9:47pm Urine Mucus NONE /HPF NEGATIVE 09/08/2017 7:34pm 8 9:47pm Urine Yeast NONE NEGATIVE 09/08/2017 7:34pm 8 9:47pm Phosphorus Level 2.80 mg/dL 2.5-4.9 09/06/2017 6:06pm 09/06 6:36pm Estimated Creatinine Clearance Calc 98.96 09/10/2017 6:27am 09/10/2017 7:45am Cholesterol Level 99 mg/dL <200 09/07/2017 5:58am 07/2017 6:56am Triglycerides Level 105 mg/dL <150 09/07/2017 5:58am 6:56am HDL Cholesterol 49 mg/dL 40-60 09/07/2017 5:58am 2017 6:56am LDL Cholesterol, Calculated 29.0 mg/dL 0-130 5:58am 09/07/2017 6:56am VLDL Cholesterol 21.0 mg/dL 0-40 09/07/2017 5:58am 09/07 6:56am Cholesterol/HDL Ratio 2.0 RATIO 09/07/2017 5:58am 09/07/2017 6:56am Cholesterol Ratio (LDL/HDL) 0.59 RATIO A 0.70-3.55 5:58am 09/07/2017 6:56am Clostridium Difficile Toxin A & B NEGATIVE NEGATI VE 09/09/2017 8:19am 09/09/2017 9:17am Stool Culture (LAB) CNCTY RESULT RECEIVE 09/09/2017 8:19am 09/12/2017 12:11pm PLEASE REFER TO HARD COPY FOR RESULTS. Specimen sent for testing to: [address] [address] Ova and Parasites (LAB) KDHE RESULT RECEIVED 09/09/2017 8:19am 09/17/2017 9:29am PLEASE REFER TO HARD COPY FOR RESULTS. Specimen sent for testing to: [facility] [id number] [place] [address] Urine Color YELLOW YELLOW 10/02/2017 UNK 10/02/2017 2: 26pm Urine Appearance Clear CLEAR 10/02/2017 UNK 10/03/19 18 2:26pm Urine Specific [place] 1.015 1.005-1.025 10/02/2017 UN K 10/02/2017 2:26pm Urine pH 7.0 5.0-7.0 10/02/2017 UNK 10/02/2017 2:26p m Urine Glucose Negative NEGATIVE 10/02/2017 UNK 8 2:26pm Urine Bilirubin Negative NEGATIVE 10/02/2017 UNK 018 2:26pm Urine Ketones Negative NEGATIVE 10/02/2017 UNK 8 2:26pm Urine Protein Negative mg/dL NEGATIVE 10/02/2017 K 8 2:26pm Urine RBC (Auto) Negative NEGATIVE 10/02/2017 UNK 2017 2:26pm Urine Urobilinogen 0.2 mg/dL 0.2-1.0 10/02/2017 UNK 2017 2:26pm Urine Nitrate Negative NEGATIVE 10/02/2017 UNK 8 2:26pm Urine Leukocyte Esterase Negative NEGATIVE 10/02/2017 UN K 10/02/2017 2:26pm Prostate Specific Antigen 0.7 ng/mL 0.0-4.0 09/05 1:31pm 10/02/2017 2:26pm Magnesium Level 2.1 mg/dL 1.8-2.4 10/21/2017 1:17pm 2017 1:46pm Digoxin Level < 0.2 ng/mL A 0.90-2.0 10/21/2017 1:17pm 018 2:57pm White Blood Count 9.4 x10^3/uL 4.5-13.5 12/21/2017 11:22am 0 12/21/2017 11:42am Red Blood Count 4.29 x10^6/uL A 4.60-6.20 12/21/2017 11: 11:42am Hemoglobin 14.1 g/dl 13.5-18.0 12/21/2017 11:12/22/19 11:42am Hematocrit 42.4 % 40.0-50.0 12/21/2017 11:12/22/19 18 11:42am Mean Corpuscular Volume 99 fL A 82-96 12/21/2017 11:22 am 12/21/2017 11:42am Mean Corpuscular Hemoglobin 32.9 pg 28.0-33.0 11:12/21/2017 11:42am Mean Corpuscular Hemoglobin Concent 33.3 g/dL 32.0 -36.0 12/21/2017 11:12/21/2017 11:42am RDW Coefficient of Variation 14.9 % A 11.5-14.5 0 12/21/2017 11:12/21/2017 11:42am RDW Standard Deviation 52.1 fL A 35.1-43.9 018 11:12/21/2017 11:42am Platelet Count 288 x10^3/uL 150-400 12/21/2017 11:12/21 11:42am Mean Platelet Volume 9.1 fL 7.0-11.0 12/21/2017 11:12/21/2017 11:42am Neutrophils (%) (Auto) 77.8 % 40.0-79.0 12/21/2017 11:2 2am 12/21/2017 11:42am Lymphocytes (%) (Auto) 15.7 % 10.0-50.0 12/21/2017 11:2 2am 12/21/2017 11:42am Monocytes (%) (Auto) 5.1 % 3.0-13.0 12/21/2017 11:am 12/21/2017 11:42am Eosinophils (%) (Auto) 1.1 % 1.0-3.0 12/21/2017 11:22a m 12/21/2017 11:42am Basophils (%) (Auto) 0.3 % 0.0-2.0 12/21/2017 11:12/21/2017 11:42am Neutrophils # (Auto) 7.3 x10^3 A 1.5-6.6 12/21/2017 11:am 12/21/2017 11:42am Lymphocytes # (Auto) 1.5 x10/uL 1.5-3.5 12/21/2017 11:am 12/21/2017 11:42am Monocytes # (Auto) 0.5 x10^3/uL 0.0-1.0 12/21/2017 11:22am 0 12/21/2017 11:42am Eosinophils # (Auto) 0.1 x10^3/uL 0.0-0.7 8 11:am 12/21/2017 11:42am Basophils # (Auto) 0.0 x10^3/uL 0.0-0.1 12/21/2017 11:22am 0 12/21/2017 11:42am Albumin 3.7 g/dL 3.4-5.0 12/21/2017 11:12/21/2017 12 :11pm Total Protein 7.4 g/dL 6.4-8.2 12/21/2017 11: 018 12:11pm Globulin 3.7 g/dL 2.0-5.0 12/21/2017 11:12/21/2017 1 2:11pm Albumin/Globulin Ratio 1.0 A 1.1-2.5 12/21/2017 11:22a m 12/21/2017 12:11pm Total Bilirubin 0.6 mg/dL 0.2-1.0 12/21/2017 11:12/21 12:11pm Direct Bilirubin 0.2 mg/dL 0.0-0.2 12/21/2017 11:12/05 12:11pm Alkaline Phosphatase 116 U/L 46-116 12/21/2017 11:12/21/2017 12:11pm Alanine Aminotransferase (ALT/SGPT) 30 U/L 12-7 8 12/21/2017 11:12/21/2017 12:11pm Aspartate Amino Transf (AST/SGOT) 41 U/L A 15-37 12/21/2017 11:12/21/2017 12:11pm Total Creatine Kinase 609 U/L A 39-308 12/21/2017 11:12/21/2017 12:11pm Creatine Kinase MB 1.1 ng/mL 0-3.6 12/21/2017 11: 12:11pm Troponin I < 0.02 ng/mL 0.00-0.06 12/21/2017 11:12/22/19 18 12:11pm Glucose Level 99 mg/dL 74-106 01/04/2018 3:19pm 01/05/20 18 3:54pm Blood Urea Nitrogen 19 mg/dL A 7-18 01/04/2018 3:19pm 3:54pm Creatinine 1.3 mg/dL 0.6-1.3 01/04/2018 3:19pm 01/04/2018 3:54pm BUN/Creatinine Ratio 14.3 RATIO 01/04/2018 3:19pm 1 3:54pm Calcium Level 9.0 mg/dL 8.5-10.1 01/04/2018 3:19pm 018 3:54pm Sodium Level 142 mmol/l 136-145 01/04/2018 3:19pm 8 3:54pm Potassium Level 3.9 mmol/L 3.5-5.1 01/04/2018 3:19pm 2017 3:54pm Chloride Level 104 mmol/L 98-107 01/04/2018 3:19pm 018 3:54pm Carbon Dioxide Level 27.9 mmol/L 21.0-32.0 8 3:19pm 01/04/2018 3:54pm Glomerular Filtration Rate Calc 59.07 mL/min >60 01/04/2018 3:19pm 01/04/2018 3:54pm Procedures No procedure information available. Encounters Encounter Location Arrival/Admit Date Discharge/Depart Date Attending Provider Departed [facility]. CTR. 01/04/18 3:00pm 8 11:59pm SRIDHAR LARSON DO Departed Emergency Room [facility]. 12/29/17 1:5 5pm 12/29/17 3:27pm ELO SALMERON APRN Departed Clinic [facility]. 12/24/17 10:58am 11:59pm EVA RADER MD Departed [facility]. CTR. 12/21/17 11:17am 11:59pm ALEXEY FUENTES APRN Departed [facility]. 12/10/17 2:53pm 8 11:59pm RUBYAJAIRA DELGADOI DO Departed Clinic [facility]. 12/01/17 1:37pm 8 11:59pm RUBYAJAIRA DELGADOI DO Departed Clinic [facility]. 11/12/17 2:59pm 8 11:59pm RUBYAJAIRA DELGADOI DO Departed Clinic [facility]. 10/30/17 10:11am 11:59pm RUBYAJAIRA DELGADOI DO Departed [facility]. CTR. 10/23/17 11:03am 11:59pm RUBENTHALER, SRIDHAR DO Departed [facility]. 10/22/17 1:06pm 8 11:59pm RUBENTHALER, SRIDHAR DO Departed [facility]. 10/21/17 1:09pm 8 11:59pm RUBENTHALER, SRIDHAR DO Departed [facility]. 10/06/17 11:03am 11:59pm SADAF DARLING MD Departed [facility]. 10/02/17 1:09pm 8 11:59pm RUBENTHALER, SRIDHAR DO Departed [facility]. 09/28/17 12:44pm 11:59pm RUBENTHALER, SRIDHAR DO Departed [facility]. 09/21/17 1:20pm 8 11:59pm RUBENTHALER, SRIDHAR DO Departed [facility]. 09/18/17 2:21pm 8 11:59pm RUBENTHALER, SRIDHAR DO Departed [facility]. 09/17/17 11:05am 11:59pm RUBENTHALER, SRIDHAR DO Discharged Inpatient [facility]. 09/06/17 1:10pm 09/10/17 5:40pm RUBENTHALER, SRIDHAR DO
--- OUTSIDE RECORDS SUMMARY | 2019-09-03 18:53 | XMS REPORT | Continuity of Care Document ---
Author Author Indian Nanny, Valente Jarvis Organization Unknown Address Unknown Phone Unavailable Care Team Providers Care Power Press Supervisor Name Role Phone Bello Serrato MD PP Bello Serrato MD Unavailable Kalyani Rush CP Problems Name Dates Details No Problem Information Available Status: Medications Name Dates Details No Medication Information Available Allergies and Adverse Reactions Name Dates Details No Known Allergies (Allergy) Onset: 24-Feb-2019 Status: Act braydon Past Medical History No Significant Medical History. Procedures Procedure Dates Details Cholecystectomy Completed Echocardiogram Completed 9 EKG Completed 9 Vasectomy Completed Family History Name Dates Details Father Comments: Acute [place] Status: Active Mother Comments: ALS Status: Active Social History Name Dates Details Marital status: . Status: Active Results No Known Results Advance Directives * No Advance Directive Information Available Encounters Historical Summary [facility] On: 28-Feb-2019 11:34 End: 28-Feb-2019 11:39 Historical Summary [facility] On: 24-Feb-2019 14:50 End: 24-Feb-2019 14:56 Insurance * Valente Trujillo ; johanne guarantor * Medicare WPS * [facility] Medical Assistance Prog
--- OUTSIDE RECORDS SUMMARY | 2019-09-03 18:53 | XMS REPORT | Continuity of Care Document ---
Author Author Patient Relations Director, Valente Jarvis Organization Unknown Address Unknown Phone Unavailable Care Team Providers Care Stretcher And Drier Name Role Phone Bello Serrato MD PP Bello Serrato MD Unavailable Kalyani Rush CP Problems Name Dates Details No Problem Information Available Status: Medications Name Dates Details No Medication Information Available Allergies and Adverse Reactions Name Dates Details No Known Allergies (Allergy) Onset: 24-Feb-2019 Status: Act braydon Past Medical History No Significant Medical History. Procedures Procedure Dates Details Cholecystectomy Completed EKG Completed 9 Vasectomy Completed Family History Name Dates Details Father Comments: Acute [place] Status: Active Mother Comments: ALS Status: Active Results No Known Results Advance Directives * No Advance Directive Information Available Encounters Historical Summary [facility] On: 24-Feb-2019 14:50 End: 24-Feb-2019 14:56 Insurance * Valente Trujillo ; johanne guarantor * Medicare WPS * [facility] Medical Assistance Prog
--- OUTSIDE RECORDS SUMMARY | 2019-09-03 18:53 | XMS REPORT | Continuity of Care Document ---
Author Author Assistant Men'S Soccer Coach, Valente Jarvis Organization Unknown Address Unknown Phone Unavailable Care Team Providers Care Journeyman Machinist Name Role Phone Bello Serrato MD PP [...] Cholecystectomy Completed Echocardiogram Completed 9 EKG Completed 0 Flu Vaccine Completed 09-Feb-2019 Pneumovax Completed 6 Vasectomy Completed Family History Name Dates Details Father Comments: Acute [place] Status: Active Mother Comments: ALS Status: Active Social History Name Dates Details Marital status: . Status: Active Results No Known Results Advance Directives * No Advance Directive Information Available Encounters Historical Summary [facility] On: 15-Jun-2019 15:19 End: 15-Jun-2019 15:25 Historical Summary [facility] On: 28-Feb-2019 11:34 End: 28-Feb-2019 11:39 Historical Summary [facility] On: 24-Feb-2019 14:50 End: 24-Feb-2019 14:56 Insurance * Valente Trujillo ; johanne guarantor * Medicare WPS * [facility] Medical Assistance Prog
--- OUTSIDE RECORDS SUMMARY | 2019-09-03 18:53 | XMS REPORT | Continuity of Care Document ---
Author Author Bog Worker, Valente Jarvis Organization Unknown Address Unknown Phone Unavailable Care Team Providers Care Health Concierge Name Role Phone Bello Serrato MD PP [...] Completed Echocardiogram Completed 9 EKG Completed 0 Vasectomy Completed Family History Name Dates Details Father Comments: Acute [place] Status: Active Mother Comments: ALS Status: Active Social History Name Dates Details Marital status: . Status: Active Results No Known Results Advance Directives * No Advance Directive Information Available Encounters Historical Summary [facility] On: 28-Feb-2019 11:34 End: 28-Feb-2019 11:39 Historical Summary [facility] On: 24-Feb-2019 14:50 End: 24-Feb-2019 14:56 Insurance * Valente Trujillo ; johanne guarantor * Medicare WPS * [facility] Medical Assistance Prog
--- OUTSIDE RECORDS SUMMARY | 2019-09-03 18:53 | XMS REPORT | Continuity of Care Document ---
Author Author Fbi Investigator, Valente Jarvis Organization Unknown Address Unknown Phone Unavailable Care Team Providers Care Wire Bound Box Machine Helper Name Role Phone Bello Serrato MD PP [...] History Name Dates Details Father Comments: Acute [place] Status: Active Mother Comments: ALS Status: Active Results No Known Results Advance Directives * No Advance Directive Information Available Encounters Historical Summary [facility] On: 24-Feb-2019 14:50 End: 24-Feb-2019 14:56 Insurance * Valente Trujillo ; johanne guarantor * Medicare WPS * [facility] Medical Assistance Prog
--- OUTSIDE RECORDS SUMMARY | 2019-09-03 18:53 | XMS REPORT | Continuity of Care Document ---
Author Organization Unknown Address [address] [place] [address] Phone Unavailable Care Team Providers Care Merchandise Planner Name Role Phone SRIDHAR LARSON DO PCP Insurance Providers Guarantor Valente Limon Jr Address [address] [place] [id number] Payer Medicare Policy Number [id number] Subscriber's Name Valente Limon Jr Relationship Self / Same As Patient Effective Date 13 Payer [employer] [facility] Policy Number [id number] Subscriber's Name Valente Limon Jr Relationship Self / Same As Patient Advance Directives Directive Response Recorded Date/Time Resuscitation Status Full Code 09/07/17 9:13am Chief Complaint and Reason for Visit Chief Complaint Lower Extremity Injury/Probl em Reason for Visit Knee contusion [id number] Problems Medical Problem Onset Date Status Acute [...] Community Resource Use Y - lives at [facility] 06/2017 2:00pm Not Applicable Not Applicable Hx Alcohol Use No 09/06/2017 2:00pm Not Applicable Not Ap plicable Hx Substance Use No 09/06/2017 2:00pm Not Applicable Not Applicable Hx Physical Abuse No 09/06/2017 2:00pm Not Applicable Not Applicable Hx Suicide Attempt No 09/06/2017 2:00pm Not Applicable No t Applicable Hx Sleep Difficulties No 09/06/2017 2:00pm Not Applicable Not Applicable Smoking Status Never smoker 12/29/2017 2:30pm Not Applicable Not Ap plicable Smoking Status Start Date Stop Date Never smoker Hospital Discharge Instructions No hospital discharge instruction information available. Plan of Care Discharge Date 12/29/17 3:27pm Disposition 01 HOME, SELF-CARE Condition at Discharge Improved Instructions/Education Provided Contusion in Adults (E D) Forms Provided Patient Portal Information Prescriptions See Medication Section Referrals SRIDHAR LRASON DO Address: [address] [place] [phone] Additional Instructions/Education X-ray reviewed with pt. Rest affected area. Stay off as much as possible. Ibuprofen or Tylenol as needed for pain and inflammation. Keep affected area elevated above level of heart. Apply ice several times throughout the day. On for 30 minutes and off for 30 minutes. Do range of motion to affected area several times throughout day as tolerated. If symptoms worsen or persist, f/u with PCP for further evaluation. Functional Status No functional status information available. [...] Rabies Vaccination No 09/06/17 2:00pm Vital Signs Acute Vital Signs Vital Response Date/Time Height 5 ft 11 in 12/29/2017 2:26pm Weight 311 lb 12/29/2017 2:26pm Body Mass Index 43.4 kg/m^2 12/29/2017 2:26pm Results Laboratory Results Test Name Result Units Flags Reference Collection Date/Time Result Date/Time Comments Urine Random Sodium 83 mmol/L 40-220 09/06/2017 6:28pm 6:36pm Urine Creatinine 22.41 mg/dL 09/06/2017 6:28pm 09/06 6:36pm Urine Protein Confirmation 3+ NEGATIVE 09/08/2017 7 [...] Cholesterol Level 99 mg/dL <200 09/07/2017 5:58am 06/0 07/2017 6:56am Triglycerides Level 105 mg/dL <150 [...] FOR RESULTS. Specimen sent for testing to: [address] [address] [facility] (LAB) KDHE RESULT RECEIVED 09/09/2017 8:19am 09/17/2017 9:29am PLEASE REFER TO HARD COPY FOR RESULTS. Specimen sent for testing to: [facility] [address] [place] [address] Urine Color YELLOW YELLOW 10/02/2017 UNK 10/02/2017 2: 26pm Urine Appearance Clear CLEAR 10/02/2017 UNK 10/03/19 18 2:26pm Urine Specific [place] 1.015 1.005-1.025 10/02/2017 UN K 10/02/2017 2:26pm Urine pH 7.0 5.0-7.0 10/02/2017 UNK 10/02/2017 2:26p m Urine Glucose Negative NEGATIVE 10/02/2017 UNK 8 2:26pm Urine Bilirubin Negative NEGATIVE 10/02/2017 UNK 018 2:26pm Urine Ketones Negative NEGATIVE 10/02/2017 UNK 8 2:26pm Urine Protein Negative mg/dL NEGATIVE 10/02/2017 UNK 8 2:26pm Urine RBC (Auto) Negative NEGATIVE [...] 11:42am Hematocrit 42.4 % 40.0-50.0 12/21/2017 11:12/22/19 11:42am Mean Corpuscular Volume 99 fL A [...] Monocytes (%) (Auto) 5.1 % 3.0-13.0 12/21/2017 11:12/21/2017 11:42am Eosinophils (%) (Auto) 1.1 % 1.0-3.0 12/21/2017 11:22a m 12/21/2017 11:42am Basophils (%) (Auto) 0.3 % 0.0-2.0 12/21/2017 11:12/21/2017 11:42am Neutrophils # (Auto) 7.3 x10^3 A 1.5-6.6 12/21/2017 11:12/21/2017 11:42am Lymphocytes # (Auto) 1.5 x10/uL 1.5-3.5 12/21/2017 11:12/21/2017 11:42am Monocytes # (Auto) 0.5 x10^3/uL 0.0-1.0 12/21/2017 11:22am 0 12/21/2017 11:42am Eosinophils # (Auto) 0.1 x10^3/uL 0.0-0.7 8 11:12/21/2017 11:42am Basophils # (Auto) 0.0 x10^3/uL 0.0-0.1 12/21/2017 11:22am 0 12/21/2017 11:42am Albumin 3.7 g/dL 3.4-5.0 12/21/2017 11:12/21/2017 12 :11pm Total Protein 7.4 g/dL 6.4-8.2 12/21/2017 11: 018 12:11pm Globulin 3.7 g/dL 2.0-5.0 12/21/2017 11:12/21/2017 1 2:11pm Albumin/Globulin Ratio 1.0 A 1.1-2.5 12/21/2017 11:a m 12/21/2017 12:11pm Total Bilirubin 0.6 mg/dL 0.2-1.0 12/21/2017 11:12/21 12:11pm Direct Bilirubin 0.2 mg/dL 0.0-0.2 12/21/2017 11:12/05 12:11pm Alkaline Phosphatase 116 U/L 46-116 12/21/2017 11:22am 12/21/2017 12:11pm Alanine Aminotransferase (ALT/SGPT) 30 U/L 12-7 8 12/21/2017 11:22am 12/21/2017 12:11pm Aspartate Amino Transf (AST/SGOT) 41 U/L A 15-37 12/21/2017 11:22am 12/21/2017 12:11pm Total Creatine Kinase 609 U/L A 39-308 12/21/2017 11:12/21/2017 12:11pm Creatine Kinase MB 1.1 ng/mL 0-3.6 12/21/2017 11: 12:11pm Troponin I < 0.02 ng/mL 0.00-0.06 12/21/2017 11:22am 12/22/19 18 12:11pm Glucose Level 80 mg/dL 74-106 12/24/2017 9:00am 12/25/19 18 11:20am Blood Urea Nitrogen 15 mg/dL 7-18 12/24/2017 9:00am 11:20am Creatinine 1.2 mg/dL 0.6-1.3 12/24/2017 9:00am 12/24/2017 11:20am BUN/Creatinine Ratio 12.7 RATIO 12/24/2017 9:00am 0 12/24/2017 11:20am Calcium Level 9.3 mg/dL 8.5-10.1 12/24/2017 9:00am 018 11:20am Sodium Level 143 mmol/l 136-145 12/24/2017 9:00am 8 11:20am Potassium Level 4.0 mmol/L 3.5-5.1 12/24/2017 9:00am 2017 11:20am Chloride Level 102 mmol/L 98-107 12/24/2017 9:00am 018 11:20am Carbon Dioxide Level 27.7 mmol/L 21.0-32.0 8 9:00am 12/24/2017 11:20am Glomerular Filtration Rate Calc >60 mL/min >60 12/24/2017 9:00am 12/24/2017 11:20am Procedures No procedure information available. Encounters Encounter Location Arrival/Admit Date Discharge/Depart Date Attending Provider Departed Emergency Room [facility] 12/29/17 1:5 5pm 12/29/17 3:27pm ELO SALMERON APRN Departed [facility] 12/24/17 10:58am 11:59pm EVA RADER MD Departed [facility] 12/21/17 11:17am 11:59pm ALEXEY FUENTES APRN Departed [facility] 12/10/17 2:53pm 8 11:59pm RUBENTHALER, SRIDHAR DO Departed [facility] 12/01/17 1:37pm 8 11:59pm RUBENTHALER, SRIDHAR DO Departed [facility] 11/12/17 2:59pm 8 11:59pm RUBENTHALER, SRIDHAR DO Departed [facility] 10/30/17 10:11am 11:59pm RUBENTHALER, SRIDHAR DO Departed [facility] 10/23/17 11:03am 11:59pm RUBENTHALER, SRIDHAR DO Departed [facility] 10/22/17 1:06pm 8 11:59pm RUBENTHALER, SRIDHAR DO Departed [facility] 10/21/17 1:09pm 8 11:59pm RUBENTHALER, SRIDHAR DO Departed [facility] 10/06/17 11:03am 11:59pm SADAF DARLING MD Departed [facility] 10/02/17 1:09pm 8 11:59pm RUBENTHALER, SRIDHAR DO Departed [facility] 09/28/17 12:44pm 11:59pm RUBENTHALER, SRIDHAR DO Departed [facility] 09/21/17 1:20pm 06/18/1 8 11:59pm SRIDHAR LARSON DO Departed Clinic [facility] 09/18/17 2:21pm 8 11:59pm SRIDHAR LARSON DO Departed Clinic [facility] 09/17/17 11:05am 11:59pm SRIDHAR LARSON DO Discharged Inpatient [facility] 09/06/17 1:10pm 09/10/17 5:40pm SRIDHAR LARSON DO Departed Emergency Room [facility] 09/06/17 10: 25am 09/06/17 1:10pm GARCIA MARKHAM MD Recent Diagnosis
--- OUTSIDE RECORDS SUMMARY | 2019-09-03 18:53 | XMS REPORT | Continuity of Care Document ---
Author Author Hand Stripper, Valente Jarvis Organization Unknown Address Unknown Phone Unavailable Care Team Providers Care Retail Sales Advisor Name Role Phone Bello Serrato MD PP [...] History Name Dates Details Father Comments: Acute [place] Status: Active Mother Comments: ALS Status: Active Social History Name Dates Details Marital status: . Status: Active Results No Known Results Advance Directives * No Advance Directive Information Available Encounters Historical Summary [facility] On: 28-Feb-2019 11:34 End: 28-Feb-2019 11:39 Historical Summary [facility] On: 24-Feb-2019 14:50 End: 24-Feb-2019 14:56 Insurance * Valente Trujillo ; johanne guarantor * Medicare WPS * [facility] Medical Assistance Prog
--- OUTSIDE RECORDS SUMMARY | 2019-09-03 18:53 | XMS REPORT | Continuity of Care Document ---
Author Author Publication Director, Valente Jarvis Organization Unknown Address Unknown Phone Unavailable Care Team Providers Care Barrel Brander Name Role Phone Bello Serrato MD PP [...] History Name Dates Details Father Comments: Acute [place] Status: Active Mother Comments: ALS Status: Active Social History Name Dates Details Marital status: . Status: Active Results No Known Results Advance Directives * No Advance Directive Information Available Encounters Historical Summary [facility] On: 28-Feb-2019 11:34 End: 28-Feb-2019 11:39 Historical Summary [facility] On: 24-Feb-2019 14:50 End: 24-Feb-2019 14:56 Insurance * Valente Trujillo ; johanne guarantor * Medicare WPS * [facility] Medical Assistance Prog
--- OUTSIDE RECORDS SUMMARY | 2019-09-03 18:53 | XMS REPORT | Continuity of Care Document ---
Author Author Linter Operator, Valente Jarvis Organization Unknown Address Unknown Phone Unavailable Care Team Providers Care Taker Down Name Role Phone Bello Serrato MD PP Bello Serrato MD Unavailable Kalyani Rush CP Problems Name Dates Details No Problem Information Available Status: Medications Name Dates Details No Medication Information Available Allergies and Adverse Reactions Name Dates Details No Allergy Information Available Status: Past Medical History No Significant Medical History. Results No Known Results Advance Directives * No Advance Directive Information Available Insurance * Valente Trujillo ; johanne guarantor * Medicare WPS * [facility] Medical Assistance Prog
--- OUTSIDE RECORDS SUMMARY | 2019-09-03 18:53 | XMS REPORT | Continuity of Care Document ---
Author Author Adult Care Manager, Valente Jarvis Organization Unknown Address Unknown Phone Unavailable Care Team Providers Care Die Trouble Shooter Name Role Phone Bello Serrato MD PP [...] History Name Dates Details Father Comments: Acute [place] Status: Active Mother Comments: ALS Status: Active Social History Name Dates Details Marital status: . Status: Active Results No Known Results Advance Directives * No Advance Directive Information Available Encounters Historical Summary [facility] On: 28-Feb-2019 11:34 End: 28-Feb-2019 11:39 Historical Summary [facility] On: 24-Feb-2019 14:50 End: 24-Feb-2019 14:56 Insurance * Valente Trujillo ; johanne guarantor * Medicare WPS * [facility] Medical Assistance Prog
--- OUTSIDE RECORDS SUMMARY | 2019-09-03 18:53 | XMS REPORT | Continuity of Care Document ---
Author Author Auto Transmission Technician, Valente Jarvis Organization Unknown Address Unknown Phone Unavailable Care Team Providers Care Internist Name Role Phone Bello Serrato MD PP [...] History Name Dates Details Father Comments: Acute [place] Status: Active Mother Comments: ALS Status: Active Social History Name Dates Details Marital status: . Status: Active Results No Known Results Advance Directives * No Advance Directive Information Available Encounters Historical Summary [facility] On: 15-Jun-2019 15:19 End: 15-Jun-2019 15:25 Historical Summary [facility] On: 28-Feb-2019 11:34 End: 28-Feb-2019 11:39 Historical Summary [facility] On: 24-Feb-2019 14:50 End: 24-Feb-2019 14:56 Insurance * Valente Trujillo ; johanne guarantor * Medicare WPS * [facility] Medical Assistance Prog
--- OUTSIDE RECORDS SUMMARY | 2019-09-03 18:53 | XMS REPORT | Continuity of Care Document ---
Author Author [facility] Address [address] [place] [address] Phone Care Team Providers Care Chyron Operator Name Role Phone Homar Clifton PP [phone] Winston PARRA, Katlin Unavailable Lorna MCDONOUGH, Mau Ramos Unavailable Unavailable Abdullahi RN, Tuyet Unavailable Unavailable Ashley Kelsey Unavailable Cathryn LAUGHLINN, Eden Hardwick Unavailable Unavailable David Malcolm Unavailable Unavailable Anup LAUGHLINN, Rubia Unavailable Ofelia [...] Status: Active CA of prostate (185, C61) Onset:2006 Status: Active Cellulitis and abscess of leg [...] Active Comments: 08/09/13 Called to Jay at [facility] ESCITALOPRAM OXALATE, 20MG (Oral Tablet) 1 [...] * Quantity: 60 {Tablet} Refills: 0 Ordered:01-Feb-2014 ElizabethHomar ChujohnHomar Chu * Start 01-Feb-2014 Active Comments: for edema*40 mg at 7 am20 mg at 1 pm Levaquin 750 MG Oral Tablet 1 (one) tablet every other day for 10 days * Quantity: 5 {Tablet} Refills: 0 Ordered:27-Mar-2017 Homar Clifton Kali * Start 27-Mar-2017 Active LEXAPRO, 20MG (Oral Tablet) (20 MG) [...] Hemanth Meza MD* Start 18-Jul-2013 Active NYSTATIN, [id number]/GM (External Powder) 1 (one) application application two times daily until clear for 0 days * Quantity: 1 {Applicator} Refills: 0 Ordered:23-Mar-2017 Homar Clifton Kali * Start 15-Jan-2015 Active Comments: Called to Avinash myers [facility]--she will order from [facility].--01/15/15 Khushi OXYBUTYNIN CHLORIDE, 5MG (Oral Tablet) 1 Tablet three times daily for 30 days * Quantity: 90 {Tablet} Refills: 3 Ordered: Hemanth Meza MD* Start Active POTASSIUM CHLORIDE MICHELLE ER, 20MEQ (Oral Tablet Extended Release) 1 Tablet ER daily for 30 days * Quantity: 30 {Tablet_ER} Refills: 12 Ordered:14-Apr-2012 Radha Handy MA* Start 14-Apr-2012 Active Comments: for hypokalemia PredniSONE 20 MG Oral Tablet 3 (three) Tablet daily for 5 days * Quantity: 15 {Tablet} Refills: 0 Ordered:27-Mar-2017 Homar Clifton Kali * Start 27-Mar-2017 Active Rivaroxaban 20mg daily Active TRIAMCINOLONE ACETONIDE, 0.5% [...] * Quantity: 30 {Capsule} Refills: 6 Ordered:24-Aug-2013 Dick Sara [employer] REPAIR* Start 09-Aug-2013 End 24-Aug-2013 Inactive Comments: 08/09/13 Change to 360mg ER daily[facility] DILTIAZEM HCL, 90MG (Oral Tablet) 1 Tablet [...] Flonase 50 MCG/ACT Nasal Suspension 2 (two) [place] daily for 10 days * Quantity: 1 {Bottle} Refills: 0 Ordered: Ashley Larry* Start End Inactive Flonase Allergy Relief 50 MCG/ACT Nasal Suspension 2 (two) [place] daily for 30 days * Quantity: 1 [...] Dates Details XR PARANASAL SINUSES, HWANG VIEW (76327) Ordered: 7 CHEST X-RAY, PA AND LATERAL ([id number]) Ordered:23-Mar-2017 Flu (Influenza) *: flu shot Ordered:09-Jan-2017 IMMUNIZ ADMNIN, 1 VAC, SNGL/COMBO ([id number]) Completed:09-Jan-2017 INTRAMUSCULAR ADMINISTRATION OF HIGH DOS E SPLIT VIRUS PRESERVATIVE FREE INFLUENZA VACCINE (32151) Completed:09-Jan-2017 Follow up if no improvement or if symptoms worsen Ordered:September-2016 MRI BRAIN W/O CONTRAST (38596) Ordered:05-Feb-2016 IMMUNIZ ADMN, EA AD VAC SNGL/COMBO (71459) Ordered:31-Jan-20 16 PREVNAR 13 (52109) Completed: 6 Flu (Influenza) *: flu shot Ordered:31-Jan-2016 IMMUNIZ ADMNIN, 1 VAC, SNGL/COMBO (39048) Completed:31-Jan-2016 INTRAMUSCULAR ADMINISTRATION OF HIGH DOS E SPLIT VIRUS PRESERVATIVE FREE INFLUENZA VACCINE (03160) Completed:31-Jan-2016 MRI BRAIN W/O CONTRAST (53964) Ordered:10-Jan-2016 Flu (Influenza) *: flu shot Ordered:16-Jan-2015 IMMUNIZ ADMNIN, 1 VAC, SNGL/COMBO (95920) Completed:16-Jan-2015 INTRAMUSCULAR ADMINISTRATION OF HIGH DOS E SPLIT VIRUS PRESERVATIVE FREE INFLUENZA VACCINE (21759) Completed:16-Jan-2015 Follow up in 2 months Ordered:01-Feb-2014 IMMUNIZATION ADMIN (24917) Completed:Jan-2014 PNEUMOCOCCAL VACCINE (58929) Completed:2 11-Jan-2014 Flu (Influenza) *: flu shot Ordered:31-Jan-2014 IMMUNIZATION ADMIN (14959) Completed:Jan-2014 FLU VACCINE NO PRSV QUADRAVALENT 3 YRS+ (75125) Completed:31-Jan-2014 FOLLOW UP BY PCP Ordered:08-May-2011 IMMUNIZ ADMNIN, 1 VAC, SNGL/COMBO (26186) Ordered:16-Sep-200 9 TDAP VACCINE IM, >7 YEARS (69252) Ordered:20-Dec-2008 Gallbladder Surgery - Laparoscopic Surgeries Comments: all 4 wis dom teeth removed in 1983 in [facility]; lap cholecystectomy 197; vasectomy in 1988; open prostatectomy attempt by [facility] in 2005 but due to fear of cutting nerves, they backed off on removing the prostate. Vasectomy Immunization Name Dates Details Influenza (3 years and up) Lot #: [id number] Administered on:13-Jan-2012 Comments: Site: Deltoid ( Left); Given at [facility] by Sherri PERRY Influenza (3 years and up) Lot #: [id number] Administered on:28-Dec-2012 Comments: Site: Deltoid (Right) Influenza, preserv. free, enhanced immun ogncty, IM Lot #: [id number] Administered on:16-Jan-2015 Comments: Site: Deltoid (Right) Influenza, preserv. free, enhanced immun ogncty, IM Lot #: [id number] Administered on:31-Jan-2016 Comments: Site: Deltoid (Left) Influenza, preserv. free, enhanced immun ogncty, IM Lot #: [id number] Administered on:09-Jan-2017 Comments: Site: Deltoid ( Left) Pneumococcal (2 years and up) Lot #: [id number] Administered on:19-Jan-2014 Comments: Site: Deltoid (Right); Admin by Antoinette Sheets RN Pneumococcal conjugate vaccine, 13 floresita t, IM Lot #: [id number] Administered on:31-Jan-2016 Comments: Site: Deltoid (Right) Quadrivalent Influenza Vaccine for 3 yrs & up. 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 Comments: [employer] Status: Active Vital Signs Date Test Result Details 27-Mar-2017 15:29 Temperature 97 f Comments: Method: [...] 1 Treatment Plan * Influenza A Ag (37965); Ordered: 03/23/2017; Note: A&B * BASIC METABOLIC PANEL (86989); Ordered: 07/17/2015 * PSA (Medicare) (G0103); Ordered: 07/17/2015 * THEODORE CULTURE-URINE (09974); Ordered: 07/04/2013 * Chem 8 BMP (83794); Ordered: 12/24/2012; Note: STANDING ORDER * CBC (02143); Ordered: 12/21/2012 * Chem 8 BMP (94238); Ordered: 12/21/2012 * VITAMIN D 25 (CALCIFEROL)(46173); Ordered: 05/31/2012 * CBC (82909); Ordered: 01/09/2012 * URINALYSIS, (70736); Ordered: 01/09/2012 * THEODORE CULTURE-URINE (30334); Ordered: 01/09/2012 * BASIC METABOLIC PANEL,BMP (09738); Ordered: 10/31/2011; Note: STANDING ORDER * PHOSPHORUS (20937); Ordered: 10/31/2011 * MAGNESIUM (12289); Ordered: 10/31/2011 * VANCOMYCIN, TROUGH (32209); Ordered: 10/27/2011; Note: STANDING ORDER-Do as directed by the pharmacist. * Chem 8 BMP (62267); Ordered: 10/27/2011; Note: STANDING ORDER * Chem 8 BMP (17750); Ordered: 09/23/2011 * IRON PROFILE*; Ordered: 05/29/2011 * HGB A1C (06354); Ordered: 05/29/2011 * LIPID PANEL (35092); Ordered: 05/28/2011 * PSA (PROSTATE SPECIFIC ANTIGEN) (75540); Ordered: 05/28/2011 * METABOLIC PANEL, BASIC (86045); Ordered: 05/28/2011 * LIVER FUNCTION PANEL* (33152); Ordered: 05/28/2011 * VITAMIN B-12 (CYANOCOBALAMIN) (14247); Ordered: 05/28/2011 * TSH (THYROID STIMULATING HORMONE) (44822); Ordered: 05/28/2011 * VITAMIN D 25 (CALCIFEROL)(39634); Ordered: 05/28/2011 * MAGNESIUM (83862); Ordered: 05/28/2011 * EKG (62041); Ordered: 05/28/2011 * CBC & PLATELETS (AUTO) (19815); Ordered: 05/28/2011 * LIVER FUNCTION PANEL* (35361); Ordered: 01/16/2010 * CBC (48770); Ordered: 01/16/2010 * LIPID PANEL (44990); Ordered: 01/16/2010 * BASIC METABOLIC PANEL,BMP (36887); Ordered: 01/16/2010 * BASIC METABOLIC PANEL,BMP (84961); Ordered: 01/19/2009 * BASIC METABOLIC PANEL,BMP (45286); Ordered: 12/20/2008 * TSH (THYROID STIMULATING HORMONE) (33126); Ordered: 12/15/2008 * VITAMIN D, 25 (CALCIFEROL) (28793); Ordered: 12/15/2008 * CBC (59139); Ordered: 12/15/2008 * BASIC METABOLIC PANEL,BMP (24610); Ordered: 12/15/2008 * LIVER FUNCTION PANEL* (73490); Ordered: 12/15/2008 * LIPID PANEL (28097); Ordered: 12/15/2008 Advance Directives * Consent of Care Agreement - Effective on 03/23/2017. Expiration date unspecified. Scanned Document is available upon request. Effective: 23-Mar-2017 Encounters Office Visit - RIGHT LOWER LOBE PNEUMONI A (486 | J18.1), FEVER (780.60 | R50.9), ACUTE MAXILLARY SINUSITIS (461.0 | J01.00), COUGH (786.2 | R05) Encounter Reason: Pneumonia, Bacterial - Note for "Bacterial pneumonia": pt here for pneumonia f/u. feeling better. still coughing. fever resolved.[facility] On 27-Mar-2017 15:24 to 15:44 Office Visit [...] fever present. [facility]-2017 to 24-Mar-2017 Medication Note - Chronic atrial fibrill ation (Renamed from Atrial fibrillation, chronic) (427.31 | I48.2) [facility] On 09-Feb-2017 16:52 to 16:56 Nurse visit (Non-Billable) - FLU VACCINE - HIGH DOSE (Renamed from NEED FOR IMMUNIZATION AGAINST INFLUENZA) (V04.81 | Z23) [facility] On 09-Jan-2017 17:53 to 17:54 Office Visit - COMMON COLD VIRUS (460 | J00) Encounter Reason: Sinusitis - Symptoms include nasal congestion, postnasal drainage, forehead pressure and cough. Onset was sudden 1 day(s) ago. The symptoms occur constantly. The patient describes this as moderate in severity and worsening. Associated symptoms include chills and sore throat.[facility] to Office Visit - ACUTE MAXILLARY SINUSITIS (461.0 | J01.00) Encounter Reason: Sinus Congestion - Symptoms include clear rhinorrhea, cheek pain, cheek pressure and cough, while symptoms do not include ear pain or headache. Onset was 4 day(s) ago. Note for "Sinusitis": pt having sinus pain and c/o eye pressure. [facility] 19-May-2016 to 20-May-2016 Office Visit - BENIGN [...] has had this dressing on for one week.[facility] 05-Feb-2016 to 08-Feb-2016 Nurse Visit - FLU VACCINE - HIGH DOSE (R enamed from NEED FOR IMMUNIZATION AGAINST INFLUENZA) (V04.81 | Z23), PREVNAR 13 (Renamed from NEED FOR VACCINATION WITH 13-POLYVALENT PNEUMOCOCCAL CONJUGATE VACCINE) (V03.82 | Z23) [facility] On 31-Jan-2016 18:14 to 18:16 Office Visit [...] it. after taking bath, scab fell off. [facility] On 25-Jan-2016 11:30 to 13:42 Annotation/Addendum - SCHIZOPHRENIA (295 .90 | F20.9) [facility] On 10-Jan-2016 15:30 to 15:38 Office Visit [...] | K59.09), Hypokalemia (276.8) (276.8 | E87.6) [facility] 17-Jul-2015 to 01-Aug-2015 Nurse Visit - FLU VACCINE - HIGH DOSE (R enamed from NEED FOR IMMUNIZATION AGAINST INFLUENZA) (V04.81 | Z23) [facility] On 16-Jan-2015 17:35 to 17:37 Medication Note - OBESITY, MORBID (278.0 1 | E66.01) [facility] On 15-Jan-2015 14:58 to 16:31 Office Visit - Edema (782.3) (782.3 | R6 0.9), URINARY FREQUENCY (788.41 | R35.0) Encounter Reason: General Exam, Follow Up - Note for "Follow up general exam": Pt here from [facility] for 60 day check up. no concerns.[facility] 01-Feb-2014 to 03-Feb-2014 Nurse visit (Non-Billable) - Pneumococca l vaccination (V03.82) 5 years + [facility] On 31-Jan-2014 17:21 to 17:23 Nurse visit (Non-Billable) - FLU VACCINE - QUADRAVALENT (Renamed from NEED FOR IMMUNIZATION AGAINST INFLUENZA) (V04.81 | Z23) [facility] On 31-Jan-2014 16:06 to 16:27 Medication Note - HYPERTENSION (401.9 | I10) [facility] On 24-Aug-2013 12:17 to 15:01 Office Visit [...] - Male": Pt lives at [facility]. No chest pain or shortness of air. Pt has hx of prostate cancer. Is currently in treatment. Never had screening colonoscopy. No family history of colon cancer. No blood in stools.[facility] 11-Aug-2013 to 18-Aug-2013 Annotation/Addendum - Unspecified Diagno sis [facility] On 04-Jul-2013 11:55 to 11:58 Office Visit - Obstructive sleep apnea ( 327.23), Chronic atrial fibrillation (Renamed from Atrial fibrillation, chronic) (427.31 | I48.2), Hypertension, benign (401.1), Edema (782.3) (782.3 | R60.9) En[facility] 22-Feb-2013 15:29 to 15:54 Office Visit - Edema (782.3), Obstructiv e sleep apnea (327.23), Hypertension, benign (401.1), Chronic atrial fibrillation (427.31) Encounter Reason: Review lab resultsFormerly [facility] 25-Jan-2013 to 03-Feb-2013 Office Visit - Edema (782.3), Obstructiv e sleep apnea (327.23), Hypertension, benign (401.1), Renal insufficiency (593.9) Encounter Reason: CellulitisFormerly [facility] 12-Jan-2013 to 18-Jan-2013 Office Visit - Edema (782.3), Heart fail ure, right (428.0), Obstructive sleep apnea (327.23) Encounter Reason: CellulitisFormerly [facility] 29-Dec-2012 to 04-Jan-2013 Office Visit - Cellulitis and abscess of leg (682.6), Heart failure, right (428.0), Edema (782.3) Encounter Reason: CellulitisFormerly [facility] On 24-Dec-2012 15:42 to 16:19 Office Visit - Cellulitis and abscess of leg (682.6), Heart failure, right (428.0), Edema (782.3) Encounter Reason: Cellulitis - The last clinic visit was 1 week(s) ago. Symptoms include swelling, tenderness and drainage. Symptoms are located on the right leg. The symptoms occur constantly. The patient describes this as worsening. [facility] 21-Dec-2012 to 22-Dec-2012 Medication Note - ANXIETY AND DEPRESSION (300.4) [facility] On 07-Dec-2012 13:57 to 14:02 Medication Note - Delusional disorder (2 97.1) [facility] On 25-Nov-2012 15:07 to 16:36 Office Visit - Chronic atrial fibrillati on (427.31), Obstructive sleep apnea (327.23), Delusional disorder (297.1) [facility] to Office Visit - Hypertension, benign (401 .1), Chronic atrial fibrillation (427.31), Obstructive sleep apnea (327.23), Delusional disorder (297.1) Encounter Reason: Medication Review/Refill - Note for "Medication Review/Refill": [facility] to Medication Note - Hypertension, benign ( 401.1) [facility] On 29-Jun-2012 15:53 to 15:54 Annotation/Addendum - Vitamin B 12 defic iency (266.2) [facility] 22-Jun-2012 to 23-Jun-2012 Annotation/Addendum - Heart failure, rig ht (428.0) [facility] On 07-Jun-2012 13:12 to 22:44 Annotation/Addendum - Vitamin D deficien cy (268.9) [facility] 31-May-2012 to 01-Jun-2012 Annotation/Addendum - Hypokalemia (276.8 ) [facility] On 16-Mar-2012 10:49 to 10:50 Medication Note - Chronic atrial fibrill ation (427.31) [facility] On 30-Jan-2012 11:29 to 11:31 Annotation/Addendum [facility] On 19-Jan-2012 12:00 to 12:03 Annotation/Addendum - Hematuria (599.70) [facility] On 09-Jan-2012 15:02 to 15:42 Annotation/Addendum - Edema (782.3) [facility] On 25-Nov-2011 12:08 to 12:09 Office Visit - Fibrillation, atrial (427 .31), Edema (782.3), Obstructive sleep apnea (327.23), Hypertension, benign (401.1), Type II diabetes mellitus (250.00) [facility] 18-Nov-2011 to 19-Nov-2011 Office Visit - Edema (782.3), Cellulitis and abscess of leg (682.6), Obstructive sleep apnea (327.23), Fibrillation, atrial (427.31), Stasis dermatitis (454.1), Conjunctivitis NOS (372.30) [facility] 05-Nov-2011 to 06-Nov-2011 Office Visit - Cellulitis and abscess of leg (682.6), Chronic kidney disease, stage III (moderate) (585.3), Edema (782.3), Obstructive sleep apnea (327.23), Hypertension, benign (401.1), Fibrillation, atrial (427.31), Encounter for long- term (current) use of other medications (V58.69) [facility] to Office Visit - Edema (782.3), Cellulitis and abscess of leg (682.6), Stasis dermatitis (454.1), Chronic kidney disease, stage III (moderate) (585.3), Encounter for long-term (current) use of other medications (V58.69), 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) Encounter Reason: Ankle Swelling - Patient has had swelling in bilateral feet and ankles with rednessand abdomen has some redness to it [facility] to Annotation/Addendum - Chronic kidney dis ease, stage III (moderate) (585.3) [facility] On 11:38 to 11:41 Annotation/Addendum - Renal failure (ARF ), acute on chronic (584.9) [facility] On 12:57 to 12:58 Office Visit - Fibrillation, atrial (427 .31), Type II diabetes mellitus (250.00), Obstructive sleep apnea (327.23), Hypertension, benign (401.1) [facility] to Annotation/Addendum [facility] On 12:43 to 12:54 Office Visit - Type II diabetes mellitus (250.00), Fibrillation, atrial (427.31), Hypertension, benign (401.1), Obstructive sleep apnea (327.23) [facility] to Medication Note - Unspecified Diagnosis [facility] On 22-Jul-2011 10:19 to 10:27 Annotation/Addendum - Type II diabetes m ellitus (250.00), Iron deficiency anemia (280.9) [facility] On 29-May-2011 13:55 to 13:58 Office Visit - Fibrillation, atrial (427 .31) [facility] On 28-May-2011 13:17 to 13:41 Office Visit - Hypertension, benign (401 .1), Primary pulmonary hypertension (416.0), Obstructive sleep apnea (327.23), Edema (782.3), Fibrillation, atrial (427.31), Encounter for long-term (current) use of other medications (V58.69), Magnesium deficiency (275.2), Osteomalacia (268.2), Malaise and fatigue (780.79), Benign prostatic hypertrophy with urinary retention (600.01), CA of prostate (185), Hypercholesterolemia (272.0) [facility] 28-May-2011 to 29-May-2011 Annotation/Addendum [facility] On 20-May-2011 11:13 to 11:14 Office Visit-Pre [...] symptoms include leg pain and edema. [facility] On 16-May-2011 12:42 to 13:20 Office Visit [...] talking. Symptoms are relieved by sitting up.[facility] 08-May-2011 to 09-May-2011 Office Visit - Hypertension, [...] cannot control the flow of urine. [facility] On 16-Jan-2010 16:29 to 16:44 Office Visit - Edema (782.3), Hypertensi on, benign (401.1), Obstructive sleep apnea (327.23), Primary pulmonary hypertension (416.0), Asthma (493.90) [facility] On 19-Jan-2009 11:37 to 12:11 Office Visit - Need for prophylactic vac cination and inoculation against combinations of disease (V06.8), Edema (782.3), Hypertension, benign (401.1), Obstructive sleep apnea (327.23), Primary pulmonary hypertension (416.0), Asthma (493.90) [facility] On 20-Dec-2008 15:48 to 16:19 Office Visit - Obstructive sleep apnea ( 327.23), Primary pulmonary hypertension (416.0), Edema (782.3), Malaise and fatigue (780.79), Hypertension, benign (401.1), Hypercholesterolemia (272.0), Encounter for long-term (current) use of other medications (V58.69), Urinary incontinence (788.30) [facility] On 15-Dec-2008 12:50 to 13:16 Insurance * Valente Trujillo ; johanne guarantor * MedicareA115 * [facility] * MedicareB146 * [place] * [facility]
--- OUTSIDE RECORDS SUMMARY | 2019-09-03 18:53 | XMS REPORT | Continuity of Care Document ---
Author Organization Unknown Address [address] [place] [id number] Phone Unavailable Care Team Providers Care Wind Operations Supervisor Name Role Phone MARSHA SRIDHAR PCP Insurance Providers Guarantor Valente Limon Jr Address [address] [place] [phone] Payer Medicare Policy Number [id number] Subscriber's Name Valente Limon Jr Relationship Self / Same As Patient Effective Date 13 [facility] Policy Number [id number] Subscriber's Name Valente Limon Jr Relationship Self [...] Community Resource Use Y - lives at [facility] 06/2017 2:00pm Not Applicable Not Applicable [...] information available. Plan of Care Discharge Date 01/28/18 11:59pm Prescriptions See Medication Section Functional Status [...] Reference Collection Date/Time Result Date/Time Comments Urine Color YELLOW YELLOW 10/02/2017 K 10/02/2017 2: 26pm Urine Appearance Clear CLEAR 10/02/2017 K 10/03/19 18 2:26pm Urine Specific [place] 1.015 1.005-1.025 10/02/2017 K 10/02/2017 2:26pm Urine pH 7.0 5.0-7.0 10/02/2017 K 10/02/2017 2:26p m Urine Glucose Negative NEGATIVE 10/02/2017 K 8 2:26pm Urine Bilirubin Negative NEGATIVE 10/02/2017 K 018 2:26pm Urine Ketones Negative NEGATIVE 10/02/2017 K 8 2:26pm Urine Protein Negative mg/dL NEGATIVE 10/02/2017 K 8 2:26pm Urine RBC (Auto) Negative NEGATIVE 10/02/2017 K 2017 2:26pm Urine Urobilinogen 0.2 mg/dL 0.2-1.0 10/02/2017 K 2017 2:26pm Urine Nitrate Negative NEGATIVE 10/02/2017 K 8 2:26pm Urine Leukocyte Esterase Negative NEGATIVE 10/02/2017 UN K 10/02/2017 2:26pm Prostate Specific Antigen 0.7 ng/mL 0.0-4.0 09/05 1:31pm 10/02/2017 2:26pm Magnesium Level 2.1 mg/dL 1.8-2.4 10/21/2017 1:17pm 2017 1:46pm Digoxin Level < 0.2 ng/mL A 0.90-2.0 10/21/2017 1:pm 018 2:57pm White Blood Count 9.4 x10^3/uL [...] Monocytes (%) (Auto) 5.1 % 3.0-13.0 12/21/2017 11:22am 12/21/2017 11:42am Eosinophils (%) (Auto) 1.1 % 1.0-3.0 12/21/2017 11:22a m 12/21/2017 11:42am Basophils (%) (Auto) 0.3 % 0.0-2.0 12/21/2017 11:12/21/2017 11:42am Neutrophils # (Auto) 7.3 x10^3 A 1.5-6.6 12/21/2017 11:22am 12/21/2017 11:42am Lymphocytes # (Auto) 1.5 x10/uL 1.5-3.5 12/21/2017 11:22am 12/21/2017 11:42am Monocytes # (Auto) 0.5 x10^3/uL 0.0-1.0 12/21/2017 11:22am 0 12/21/2017 11:42am Eosinophils # (Auto) 0.1 x10^3/uL 0.0-0.7 8 11:22am 12/21/2017 11:42am Basophils # (Auto) 0.0 x10^3/uL 0.0-0.1 12/21/2017 11:22am 0 12/21/2017 11:42am Albumin 3.7 g/dL 3.4-5.0 12/21/2017 11:12/21/2017 12 :11pm Total Protein 7.4 g/dL 6.4-8.2 12/21/2017 11:am 018 12:11pm Globulin 3.7 g/dL 2.0-5.0 12/21/2017 11:22am 12/21/2017 1 2:11pm Albumin/Globulin Ratio 1.0 A 1.1-2.5 [...] 0.00-0.06 12/21/2017 11:12/22/19 18 12:11pm Glucose Level 106 mg/dL 74-106 01/28/2018 1:26pm 01/29/20 18 1:48pm Blood Urea Nitrogen 23 mg/dL A 7-18 01/28/2018 1:26pm 1:48pm Creatinine 1.4 mg/dL A 0.6-1.3 01/28/2018 1:26pm 01/28/2018 1:48pm BUN/Creatinine Ratio 16.4 RATIO 01/28/2018 1:26pm 1 1:48pm Calcium Level 9.4 mg/dL 8.5-10.1 01/28/2018 1:pm 018 1:48pm Sodium Level 144 mmol/l 136-145 01/28/2018 1:pm 8 1:48pm Potassium Level 4.1 mmol/L 3.5-5.1 01/28/2018 1:26pm 2017 1:48pm Chloride Level 105 mmol/L 98-107 01/28/2018 1:pm 018 1:48pm Carbon Dioxide Level 26.1 mmol/L 21.0-32.0 8 1:26pm 01/28/2018 1:48pm Glomerular Filtration Rate Calc 54.23 mL/min >60 01/28/2018 1:26pm 01/28/2018 1:48pm Procedures No procedure information available. Encounters Encounter Location Arrival/Admit Date Discharge/Depart Date Attending Provider Departed [facility]. 01/28/18 1:21pm 8 11:59pm RUBENTHALERYAJAIRAI DO Departed [facility]. CTR. 01/04/18 3:00pm 8 11:59pm RUBENTHALERYAJAIRAI DO Departed Emergency Room [facility]. 12/29/17 1:5 5pm 12/29/17 3:27pm [facility] 12/24/17 10:58am 11:59pm EVA RADER MD Departed [facility] CTR. 12/21/17 11:17am 11:59pm [facility]ES [facility] 12/10/17 2:53pm 8 11:59pm RUBENTHALERYAJAIRAI DO Departed [facility]. CTR. 12/01/17 1:37pm 8 11:59pm RUBENTHALER, SRIDHAR DO Departed [facility]. CTR. 11/12/17 2:59pm 8 11:59pm RUBENTHALER, SRIDHAR DO Departed [facility]. CTR. 10/30/17 10:11am 11:59pm RUBENTHALER, SRIDHAR DO Departed [facility]. CTR. 10/23/17 11:03am 11:59pm RUBENTHALER, SRIDHAR DO Departed [facility]. CTR. 10/22/17 1:06pm 8 11:59pm RUBENTHALER, SRIDHAR DO Departed [facility]. CTR. 10/21/17 1:09pm 8 11:59pm SRIDHAR LARSON DO Departed [facility]. CTR. 10/06/17 11:03am 11:59pm SADAF DARLING MD Departed [facility]. CTR. 10/02/17 1:09pm 8 11:59pm SRIDHAR LARSON DO
--- OUTSIDE RECORDS SUMMARY | 2019-09-03 18:53 | XMS REPORT | Continuity of Care Document ---
Author Author Ebd Teacher, Valente Jarvis Organization Unknown Address Unknown Phone Unavailable Care Team Providers Care Collections Curator Name Role Phone Bello Serrato MD PP [...] History Name Dates Details Father Comments: Acute [place] Status: Active Mother Comments: ALS Status: Active Social History Name Dates Details Marital status: . Status: Active Results No Known Results Advance Directives * No Advance Directive Information Available Encounters Historical Summary [facility] On: 28-Feb-2019 11:34 End: 28-Feb-2019 11:39 Historical Summary [facility] On: 24-Feb-2019 14:50 End: 24-Feb-2019 14:56 Insurance * Valente Trujillo ; johanne guarantor * Medicare WPS * [facility] Medical Assistance Prog
--- OUTSIDE RECORDS SUMMARY | 2019-09-03 18:53 | XMS REPORT | Continuity of Care Document ---
Author Author Stencil Maker, Valente Jarvis Organization Unknown Address Unknown Phone Unavailable Care Team Providers Care Wood Coater Name Role Phone Bello Serrato MD PP [...] History Name Dates Details Father Comments: Acute [place] Status: Active Mother Comments: ALS Status: Active Social History Name Dates Details Marital status: . Status: Active Results No Known Results Advance Directives * No Advance Directive Information Available Encounters Historical Summary [facility] On: 28-Feb-2019 11:34 End: 28-Feb-2019 11:39 Historical Summary [facility] On: 24-Feb-2019 14:50 End: 24-Feb-2019 14:56 Insurance * Valente Trujillo ; johanne guarantor * Medicare WPS * [facility] Medical Assistance Prog
--- OUTSIDE RECORDS SUMMARY | 2019-09-03 18:54 | XMS REPORT | Continuity of Care Document ---
Author Organization Unknown Address [address] [place] [address] Phone Unavailable Care Team Providers Care Maintenance Shop Clerk Name Role Phone MARSHA SRIDHAR PCP Insurance Providers Guarantor Valente Limon Jr Address [address] [place] [phone] Payer Medicare Policy Number [id number] Subscriber's Name Valente Limon Jr Relationship Self / Same As Patient [facility] Policy Number [id number] Subscriber's Name Valente Limon Jr Relationship Self / Same As Patient Advance Directives Directive Response Recorded Date/Time Resuscitation Status Full Code 09/07/17 9:13am Problems Medical Problem Onset Date Status Acute renal failure Unknown Anemia Unknown Atrial fibrillation 01/17/2012 Acute Atrial fibrillation with RVR Unknown Acute Bradycardia 01/17/2012 Acute Dyslipidemia Unknown GERD (gastroesophageal reflux disease) Unknown Gastroenteritis Unknown Acute Hypertension Unknown Hypokalemia Unknown Acute Hyponatremia Unknown Hypotension due to drugs Unknown Schizophrenia Unknown 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 06/2017 2:00pm Not Applicable Not Applicable [...] information available. Plan of Care Discharge Date 10/23/17 11:59pm Prescriptions See Medication Section Functional Status [...] Flags Reference Collection Date/Time Result Date/Time Comments Vitamin D 25-Hydroxy 36.0 ng/mL 30.0-59.9 08/20/2017 9:00am 08/21/2017 4:42pm Urine Random Sodium 83 mmol/L 40-220 09/06/2017 [...] FOR RESULTS. Specimen sent for testing to: [address] [address] Ova and Parasites (LAB) KDHE RESULT RECEIVED 09/09/2017 8:19am 09/17/2017 9:29am PLEASE REFER TO HARD COPY FOR RESULTS. Specimen sent for testing to: [facility] Field Building [address] [place] [address] Urine Color YELLOW YELLOW 10/02/2017 UNK 10/02/2017 2: 26pm Urine Appearance Clear CLEAR 10/02/2017 UNK 10/03/19 18 2:26pm Urine Specific [place] 1.015 1.005-1.025 10/02/2017 UN K 10/02/2017 2:26pm Urine pH 7.0 5.0-7.0 10/02/2017 UNK 10/02/2017 2:26p m Urine Glucose Negative NEGATIVE 10/02/2017 [facility] 8 2:26pm Urine Bilirubin Negative NEGATIVE 10/02/2017 [facility] 018 2:26pm Urine Ketones Negative NEGATIVE 10/02/2017 K 8 2:26pm Urine Protein Negative mg/dL NEGATIVE 10/02/2017 K 8 2:26pm Urine RBC (Auto) Negative NEGATIVE 10/02/2017 K 2017 2:26pm Urine Urobilinogen 0.2 mg/dL 0.2-1.0 10/02/2017 [facility] 2017 2:26pm Urine Nitrate Negative NEGATIVE 10/02/2017 [facility] 8 2:26pm Urine Leukocyte Esterase Negative NEGATIVE 10/02/2017 [facility] 10/02/2017 2:26pm Prostate Specific Antigen 0.7 ng/mL 0.0-4.0 09/05 1:31pm 10/02/2017 2:26pm White Blood Count 13.2 x10^3/uL 4.5-13.5 10/21/2017 1: 1:32pm Red Blood Count 4.31 x10^6/uL A 4.60-6.20 10/21/2017 1: 1:32pm Hemoglobin 13.9 g/dl 13.5-18.0 10/21/2017 1: 8 1:32pm Hematocrit 41.0 % 40.0-50.0 10/21/2017 1: 8 1:32pm Mean Corpuscular Volume 95 fL 82-96 10/21/2017 1:17p m 10/21/2017 1:32pm Mean Corpuscular Hemoglobin 32.3 pg 28.0-33.0 1:10/21/2017 1:32pm Mean Corpuscular Hemoglobin Concent 33.9 g/dL 32.0 -36.0 10/21/2017 1:10/21/2017 1:32pm RDW Coefficient of Variation 15.4 % A 11.5-14.5 0 10/21/2017 1:10/21/2017 1:32pm RDW Standard Deviation 51.7 fL A 35.1-43.9 10/21/2017 1:17 pm 10/21/2017 1:32pm Platelet Count 381 x10^3/uL 150-400 10/21/2017 1:2017 1:32pm Mean Platelet Volume 8.9 fL 7.0-11.0 10/21/2017 1:10/21/2017 1:32pm Neutrophils (%) (Auto) 80.6 % A 40.0-79.0 10/21/2017 1:17 pm 10/21/2017 1:32pm Lymphocytes (%) (Auto) 13.7 % 10.0-50.0 10/21/2017 1:17 pm 10/21/2017 1:32pm Monocytes (%) (Auto) 4.7 % 3.0-13.0 10/21/2017 1:10/21/2017 1:32pm Eosinophils (%) (Auto) 0.8 % A 1.0-3.0 10/21/2017 1:10/21/2017 1:32pm Basophils (%) (Auto) 0.2 % 0.0-2.0 10/21/2017 1:17pm 0 10/21/2017 1:32pm Neutrophils # (Auto) 10.7 x10^3 A 1.5-6.6 10/21/2017 1:17pm 0 10/21/2017 1:32pm Lymphocytes # (Auto) 1.8 x10/uL 1.5-3.5 10/21/2017 1:17pm 0 10/21/2017 1:32pm Monocytes # (Auto) 0.6 x10^3/uL 0.0-1.0 10/21/2017 1: 1:32pm Eosinophils # (Auto) 0.1 x10^3/uL 0.0-0.7 10/21/2017 1:10/21/2017 1:32pm Basophils # (Auto) 0.0 x10^3/uL 0.0-0.1 10/21/2017 1:17pm 1:32pm Albumin 3.5 g/dL 3.4-5.0 10/21/2017 1:1710/21/2017 1:4 6pm Total Protein 8.0 g/dL 6.4-8.2 10/21/2017 1:17pm 10/22/19 18 1:46pm Globulin 4.5 g/dL 2.0-5.0 10/21/2017 1:1710/21/2017 1: 46pm Albumin/Globulin Ratio 0.8 A 1.1-2.5 10/21/2017 1:1710/21/2017 1:46pm Total Bilirubin 0.4 mg/dL 0.2-1.0 10/21/2017 1:172017 1:46pm Direct Bilirubin 0.1 mg/dL 0.0-0.2 10/21/2017 1:17pm 10/21 1:46pm Alkaline Phosphatase 130 U/L A 46-116 10/21/2017 1:17pm 0 10/21/2017 1:46pm Alanine Aminotransferase (ALT/SGPT) 21 U/L 12-7 8 10/21/2017 1:17pm 10/21/2017 1:46pm Aspartate Amino Transf (AST/SGOT) 18 U/L 15-37 10/21/2017 1:17pm 10/21/2017 1:46pm Magnesium Level 2.1 mg/dL 1.8-2.4 10/21/2017 1:pm 2017 1:46pm Troponin I < 0.02 ng/mL 0.00-0.06 10/21/2017 1: 8 1:46pm Digoxin Level < 0.2 ng/mL A 0.90-2.0 10/21/2017 1:17 018 2:57pm Glucose Level 117 mg/dL A 74-106 10/23/2017 11:08am 018 11:29am Blood Urea Nitrogen 32 mg/dL A 7-18 10/23/2017 11:08am 0 10/23/2017 11:29am Creatinine 1.6 mg/dL A 0.6-1.3 10/23/2017 11:08am 10/23/2017 11:29am BUN/Creatinine Ratio 20.0 RATIO 10/23/2017 11:08am 10/23/2017 11:29am Calcium Level 9.8 mg/dL 8.5-10.1 10/23/2017 11:08am 2017 11:29am Sodium Level 134 mmol/l A 136-145 10/23/2017 11:08am 10/24/19 18 11:29am Potassium Level 3.2 mmol/L A 3.5-5.1 10/23/2017 11:08am 10/23 11:29am Chloride Level 94 mmol/L A 98-107 10/23/2017 11:08am 2017 11:29am Carbon Dioxide Level 30.5 mmol/L 21.0-32.0 8 11:08am 10/23/2017 11:29am Glomerular Filtration Rate Calc 46.48 mL/min >60 10/23/2017 11:08am 10/23/2017 11:29am Procedures No procedure information available. Encounters Encounter Location Arrival/Admit Date [facility] 11:03am 11:59pm RUBENTHALER, SRIDHAR DO Departed [facility]. CTR. 10/22/17 1:06pm 8 11:59pm [facility] 10/21/17 1:09pm 8 11:59pm RUBENTHALER, SRIDHAR DO Departed [facility]. CTR. 10/06/17 11:03am 11:59pm [facility] 10/02/17 1:09pm 8 11:59pm [facility]HALER[facility] 09/28/17 12:44pm 11:59pm [facility]ENTHALER[facility] 09/21/17 1:20pm 8 11:59pm RUBENTHALER, SRIDHAR DO Departed [facility]. CTR. 09/18/17 2:21pm 8 11:59pm RUBENTHALER, SRIDHAR DO Departed Clinic [facility]. CTR. 09/17/17 11:05am 11:59pm RUBENTHALER SRIDHAR DO Discharged Inpatient [facility]. [facility]. 09/06/17 1:10pm 09/10/17 5:40pm RUBENTHALERYAJAIRAI DO Departed Emergency Room [facility]. 09/06/17 10: 25am 09/06/17 1:10pm GARCIA MARKHAM MD Departed Clinic [facility]. 08/28/17 3:04pm 8 11:59pm RUBENTHALERYAJAIRAI DO Departed [facility]. CTR. 08/20/17 8:22am 8 11:59pm RUBENTHALER, SRIDHAR DO Departed [facility]. CTR. 08/03/17 2:18pm 8 11:59pm RUBENTHALERYAJAIRAI DO Departed [facility]. CTR. 07/30/17 2:47pm 8 11:59pm RUBENTHALERYAJAIRAI DO Departed [facility]. CTR. 07/23/17 8:21am 8 11:59pm MARVEL BROWN MD
--- OUTSIDE RECORDS SUMMARY | 2019-09-03 18:54 | XMS REPORT | Continuity of Care Document ---
Author Organization Unknown Address [address] [place] [address] Phone Unavailable Care Team Providers Care Denture Finisher Name Role Phone MARIIADiamante SRIDHAR PCP Insurance Providers Guarantor Valente Limon Jr Address [address] [place] [phone] Payer Medicare Policy Number [id number] Subscriber's Name Valente Limon Jr Relationship Self / Same As Patient [facility] Number [id number] Subscriber's Name Valente Limon Jr Relationship Self [...] Community Resource Use Y - lives at [facility] 06/2017 2:00pm Not Applicable Not Applicable [...] information available. Plan of Care Discharge Date 12/01/17 11:59pm Prescriptions See Medication Section Functional Status [...] FOR RESULTS. Specimen sent for testing to: [address] [address] Ova and Parasites (LAB) KDHE RESULT RECEIVED 09/09/2017 8:19am 09/17/2017 9:29am PLEASE REFER TO HARD COPY FOR RESULTS. Specimen sent for testing to: [facility] Field Building [address] [place] [address] Urine Color YELLOW YELLOW 10/02/2017 UNK 10/02/2017 2: 26pm Urine Appearance Clear CLEAR 10/02/2017 UNK 10/03/19 18 2:26pm Urine Specific [place] 1.015 1.005-1.025 10/02/2017 UN K 10/02/2017 2:26pm [...] 2017 2:26pm Urine Nitrate Negative NEGATIVE 10/02/2017 [facility] 8 2:26pm Urine Leukocyte Esterase Negative NEGATIVE 10/02/2017 [facility] 10/02/2017 2:26pm Prostate Specific Antigen 0.7 ng/mL 0.0-4.0 09/05 1:31pm 10/02/2017 2:26pm White Blood Count 13.2 x10^3/uL 4.5-13.5 10/21/2017 1:17 1:32pm Red Blood Count 4.31 x10^6/uL A 4.60-6.20 10/21/2017 1:pm 1:32pm Hemoglobin 13.9 g/dl 13.5-18.0 10/21/2017 1: [...] Lymphocytes (%) (Auto) 13.7 % 10.0-50.0 10/21/2017 1: pm 10/21/2017 1:32pm Monocytes (%) (Auto) 4.7 [...] Basophils # (Auto) 0.0 x10^3/uL 0.0-0.1 10/21/2017 1: 1:32pm Albumin 3.5 g/dL 3.4-5.0 10/21/2017 1:1710/21/2017 1:4 6pm Total Protein 8.0 g/dL 6.4-8.2 10/21/2017 1:10/22/19 1:46pm Globulin 4.5 g/dL 2.0-5.0 10/21/2017 1:17pm 10/21/2017 1: 46pm Albumin/Globulin Ratio 0.8 A 1.1-2.5 [...] ng/mL A 0.90-2.0 10/21/2017 1:17pm 018 2:57pm Glucose Level 106 mg/dL 74-106 12/01/2017 1:41pm 12/02/19 1:58pm Blood Urea Nitrogen 27 mg/dL A 7-18 12/01/2017 1:41pm 1:58pm Creatinine 1.4 mg/dL A 0.6-1.3 12/01/2017 1:41pm 12/01/2017 1:58pm BUN/Creatinine Ratio 19.4 RATIO 12/01/2017 1:41pm 0 12/01/2017 1:58pm Calcium Level 9.7 mg/dL 8.5-10.1 12/01/2017 1:41pm 018 1:58pm Sodium Level 138 mmol/l 136-145 12/01/2017 1:41pm 8 1:58pm Potassium Level 3.2 mmol/L A 3.5-5.1 12/01/2017 1:41pm 2017 1:58pm Chloride Level 99 mmol/L 98-107 12/01/2017 1:41pm 018 1:58pm Carbon Dioxide Level 29.1 mmol/L 21.0-32.0 8 1:41pm 12/01/2017 1:58pm Glomerular Filtration Rate Calc 54.23 mL/min >60 12/01/2017 1:41pm 12/01/2017 1:58pm Procedures No procedure information available. Encounters Encounter Location Arrival/Admit Date Discharge/Depart Date Attending Provider Departed [facility] CTR. 12/01/17 1:37pm 8 11:59pm RUBENTHALER, SRIDHAR DO Departed [facility]. CTR. 11/12/17 2:59pm 8 11:59pm [facility] 10/30/17 10:11am 11:59pm RUBENTHALER, SRIDHAR DO Departed [facility]. CTR. 10/23/17 11:03am 11:59pm RUBENTHALER, SRIDHAR DO Departed [facility]. CTR. 10/22/17 1:06pm 8 11:59pm RUBENTHALER, SRIDHAR DO Departed [facility]. CTR. 10/21/17 1:09pm 8 11:59pm RUBENTHALER, SRIDHAR DO Departed [facility] CTR. 10/06/17 11:03am 11:59pm [facility] 1:09pm 8 11:59pm RUBENTHALER, SRIDHAR DO Departed Clinic [facility]. 09/28/17 12:44pm 11:59pm RUBENTHALER, SRIDHAR DO Departed Clinic [facility] CTR. 09/21/17 1:20pm 8 11:59pm RUBENTHALER SRIDHAR DO Departed Clinic [facility] CTR. 09/18/17 2:21pm 8 11:59pm RUBENTHALERYAJAIRAI DO Departed Clinic [facility] CTR. 09/17/17 11:05am 11:59pm RUBENTHALERYAJAIRAI DO Discharged Inpatient [facility]. 09/06/17 1:10pm 09/10/17 5:40pm RUBSRIDHAR DELGADO DO Departed Emergency Room [facility] CTR. 09/06/17 10: 25am 09/06/17 1:10pm GARCIA MARKHAM MD Departed [facility]. CTR. 08/28/17 3:04pm 8 11:59pm RUBSRIDHAR DELGADO DO Departed Clinic [facility] CTR. 08/20/17 8:22am 8 11:59pm RUBENTHALERSRIDHAR DO
--- OUTSIDE RECORDS SUMMARY | 2019-09-03 18:54 | XMS REPORT | Continuity of Care Document ---
Author Organization Unknown Address [address] [place] [address] Phone Unavailable Care Team Providers Care Rivet Tapping Machine Operator Name Role Phone EVA RADER MD PCP Insurance Providers Guarantor Valente Limon Jr Address [address] [place] [phone] Payer Medicare Policy Number [id number] Subscriber's Name Valente Limon Jr Relationship Self / Same As Patient Effective Date 13 [facility] Policy Number [id number] Subscriber's Name Valente Limon Jr Relationship Self [...] Community Resource Use Y - lives at [facility] 06/2017 2:00pm Not Applicable Not Applicable [...] information available. Plan of Care Discharge Date 12/24/17 11:59pm Prescriptions See Medication Section Functional Status [...] FOR RESULTS. Specimen sent for testing to: [address] [address] Ova and Parasites (LAB) KDHE RESULT RECEIVED 09/09/2017 8:19am 09/17/2017 9:29am PLEASE REFER TO HARD COPY FOR RESULTS. Specimen sent for testing to: [facility] Field Building [address] [place] [address] Urine Color YELLOW YELLOW 10/02/2017 UNK 10/02/2017 2: 26pm Urine Appearance Clear CLEAR 10/02/2017 UNK 10/03/19 18 2:26pm Urine Specific [place] 1.015 1.005-1.025 10/02/2017 UN K 10/02/2017 2:26pm Urine pH 7.0 5.0-7.0 10/02/2017 UNK 10/02/2017 2:26p m Urine Glucose Negative NEGATIVE 10/02/2017 UNK 8 2:26pm Urine Bilirubin Negative NEGATIVE 10/02/2017 [facility] 018 2:26pm Urine Ketones Negative NEGATIVE 10/02/2017 [facility] 8 2:26pm Urine Protein Negative mg/dL NEGATIVE 10/02/2017 [facility] 8 2:26pm Urine RBC (Auto) Negative NEGATIVE 10/02/2017 [facility] 2017 2:26pm Urine Urobilinogen 0.2 mg/dL 0.2-1.0 10/02/2017 [facility] 2017 2:26pm Urine Nitrate Negative NEGATIVE 10/02/2017 [facility] 8 2:26pm Urine Leukocyte Esterase Negative NEGATIVE 10/02/2017 [facility] 10/02/2017 2:26pm Prostate Specific Antigen 0.7 ng/mL 0.0-4.0 09/05 1:31pm 10/02/2017 2:26pm Magnesium Level 2.1 mg/dL 1.8-2.4 10/21/2017 1:17pm 2017 1:46pm Digoxin Level < 0.2 ng/mL A 0.90-2.0 10/21/2017 1:17pm 018 2:57pm White Blood Count 9.4 x10^3/uL 4.5-13.5 12/21/2017 11:22am 0 12/21/2017 11:42am Red Blood Count 4.29 x10^6/uL A 4.60-6.20 12/21/2017 11:22am 11:42am Hemoglobin 14.1 g/dl 13.5-18.0 12/21/2017 11:22am 12/22/19 11:42am Hematocrit 42.4 % 40.0-50.0 12/21/2017 11:22am 12/22/19 11:42am Mean Corpuscular Volume 99 fL A 82-96 12/21/2017 11:22 am 12/21/2017 11:42am Mean Corpuscular Hemoglobin 32.9 pg 28.0-33.0 11:22am 12/21/2017 11:42am Mean Corpuscular Hemoglobin Concent 33.3 g/dL [...] 0.00-0.06 12/21/2017 11:12/22/19 18 12:11pm Glucose Level 80 mg/dL 74-106 12/24/2017 9:00am 12/25/19 18 11:20am Blood Urea Nitrogen 15 mg/dL 7-18 12/24/2017 9:00 11:20am Creatinine 1.2 mg/dL 0.6-1.3 12/24/2017 9:00am [...] Location Arrival/Admit Date [facility]charge[facility] 10:58am 11:59pm [facility] 12/21/17 11:17am 11:59pm [facility]/10/17 2:53pm 8 11:59pm RUBENTHALER, SRIDHAR DO Departed [facility]. 12/01/17 1:37pm 8 11:59pm RUBENTHALER, SRIDHAR [facility] 11/12/17 2:59pm 8 11:59pm [facility]/30/17 10:11am 11:59pm [facility]HAL[facility] 10/23/17 11:03am 11:59pm RUBENTHALER, SRIDHAR DO Departed [facility]. 10/22/17 1:06pm 8 11:59pm RUBENTHALER, SRIDHAR DO Departed Clinic [facility]. 10/21/17 1:09pm 8 11:59pm RUBENTHALER, SRIDHAR DO Departed [facility]. 10/06/17 11:03am 11:59pm SADAF DARLING MD Departed [facility]. 10/02/17 1:09pm 8 11:59pm RUBENTHALER, SRIDHAR DO Departed [facility]. 09/28/17 12:44pm 11:59pm RUBENTHALER, SRIDHAR DO Departed [facility]. 09/21/17 1:20pm 8 11:59pm RUBENTHALER, SRIDHAR DO Departed [facility]. 09/18/17 2:21pm 8 11:59pm RUBENTHALER, SRIDHAR DO Departed Clinic [facility]. 09/17/17 11:05am 11:59pm RUBENTHALER, SRIDHAR DO Discharged Inpatient [facility]. 09/06/17 1:10pm 09/10/17 5:40pm RUBENTHALER, SRIDHAR DO Departed Emergency Room [facility]. 09/06/17 10: 25am 09/06/17 1:10pm GARCIA MARKHAM MD Departed [facility]. 08/28/17 3:04pm 8 11:59pm RUBENTHALER, SRIDHAR DO
--- OUTSIDE RECORDS SUMMARY | 2019-09-03 18:54 | XMS REPORT | Continuity of Care Document ---
Author Organization Unknown Address [address] [place] [address] Phone Unavailable Care Team Providers Care Folder Inspector Name Role Phone MARIIADiamante SRIDHAR PCP Insurance Providers Guarantor Valente Limon Jr Address [address] [place] [phone] Payer Medicare Policy Number [id number] Subscriber's Name Valente Limon Jr Relationship Self / Same As Patient [facility] Number [id number] Subscriber's Name Valente Limon Jr Relationship Self [...] Use Y - lives at [facility] 06/2017 2:00pm Not Applicable Not Applicable [...] information available. Plan of Care Discharge Date 12/10/17 11:59pm Prescriptions See Medication Section Functional Status [...] FOR RESULTS. Specimen sent for testing to: [address] [address] Ova and Parasites (LAB) KDHE RESULT RECEIVED 09/09/2017 8:19am 09/17/2017 9:29am PLEASE REFER TO HARD COPY FOR RESULTS. Specimen sent for testing to: [facility] Field Building [address] [place] [address] Urine Color YELLOW YELLOW 10/02/2017 UNK 10/02/2017 2: 26pm Urine Appearance Clear CLEAR 10/02/2017 UNK 10/03/19 18 2:26pm Urine Specific [place] 1.015 1.005-1.025 10/02/2017 UN K 10/02/2017 2:26pm [...] 2017 2:26pm Urine Nitrate Negative NEGATIVE 10/02/2017 [facility] 8 2:26pm Urine Leukocyte Esterase Negative NEGATIVE 10/02/2017 [facility] 10/02/2017 2:26pm Prostate Specific Antigen 0.7 [...] 1: 1:32pm Albumin 3.5 g/dL 3.4-5.0 10/21/2017 1:17pm 10/21/2017 1:4 6pm Total Protein 8.0 g/dL 6.4-8.2 10/21/2017 1:pm 10/22/19 1:46pm Globulin 4.5 g/dL 2.0-5.0 10/21/2017 1:17pm 10/21/2017 1: 46pm Albumin/Globulin Ratio 0.8 A 1.1-2.5 10/21/2017 1:1710/21/2017 1:46pm Total Bilirubin 0.4 mg/dL 0.2-1.0 10/21/2017 1:17pm 2017 1:46pm Direct Bilirubin 0.1 mg/dL 0.0-0.2 10/21/2017 [...] 0.90-2.0 10/21/2017 1:17pm 018 2:57pm Glucose Level 111 mg/dL A 74-106 12/10/2017 3:00pm 12/11/19 3:16pm Blood Urea Nitrogen 27 mg/dL A 7-18 12/10/2017 3:00pm 3:16pm Creatinine 1.6 mg/dL A 0.6-1.3 12/10/2017 3:00pm 12/10/2017 3:16pm BUN/Creatinine Ratio 16.5 RATIO 12/10/2017 3:00pm 0 12/10/2017 3:16pm Calcium Level 10.2 mg/dL A 8.5-10.1 12/10/2017 3:00pm 018 3:16pm Sodium Level 139 mmol/l 136-145 12/10/2017 3:00pm 8 3:16pm Potassium Level 3.6 mmol/L 3.5-5.1 12/10/2017 3:00pm 2017 3:16pm Chloride Level 100 mmol/L 98-107 12/10/2017 3:00pm 018 3:16pm Carbon Dioxide Level 25.5 mmol/L 21.0-32.0 8 3:00pm 12/10/2017 3:16pm Glomerular Filtration Rate Calc 46.48 mL/min >60 12/10/2017 3:00pm 12/10/2017 3:16pm Procedures No procedure information available. Encounters Encounter Location Arrival/Admit Date Discharge/Depart Date Attending Provider Departed [facility]. 12/10/17 2:53pm 8 11:59pm RUBENTHALER, SRIDHAR DO Departed [facility]. 12/01/17 1:37pm 8 11:59pm [facility]/12/17 2:59pm 8 11:59pm RUBENTHALER, SRIDHAR DO Departed [facility]. 10/30/17 10:11am 11:59pm RUBENTHALER, SRIDHAR DO Departed [facility]. 10/23/17 11:03am 11:59pm RUBENTHALER, SRIDHAR DO Departed [facility]. 10/22/17 1:06pm 8 11:59pm RUBENTHALER, SRIDHAR DO Departed [facility]. 10/21/17 1:09pm 8 11:59pm RUBENTHALER, SRIDHAR DO Departed [facility]. CTR. 10/06/17 11:03am 11:59pm SADAF DARLING MD Departed [facility]. 10/02/17 1:09pm 8 11:59pm RUBENTHALERSRIDHAR DO Departed Clinic [facility]. 09/28/17 12:44pm 11:59pm RUBENTHALERYAJAIRAI DO Departed [facility]. 09/21/17 1:20pm 8 11:59pm RUBENTHALERYAJAIRAI DO Departed Clinic [facility]. 09/18/17 2:21pm 8 11:59pm RUBENTHALERYAJAIRAI DO Departed Clinic [facility]. 09/17/17 11:05am 11:59pm RUBLOWELLALERSRIDHAR DO Discharged Inpatient [facility]. 09/06/17 1:10pm 09/10/17 5:40pm RUBSRIDHAR DELGADO DO Departed Emergency Room [facility]. 09/06/17 10: 25am 09/06/17 1:10pm GARCIA MARKHAM MD Departed [facility]. 08/28/17 3:04pm 8 11:59pm RUBENTHSRIDHAR PEREZ DO Departed [facility]. 08/20/17 8:22am 8 11:59pm RUBENTHALERSRIDHAR DO
--- OUTSIDE RECORDS SUMMARY | 2019-09-03 18:54 | XMS REPORT | Continuity of Care Document ---
Author Organization Unknown Address [address] [place] [address] Phone Unavailable Care Team Providers Care Copyright Clerk Name Role Phone MARIIADiamante SRIDHAR PCP Insurance Providers Guarantor Valente Limon Jr Address [address] [place] [phone] Payer Medicare Policy Number [id number] Subscriber's Name Valente Limon Jr Relationship Self / Same As Patient [facility] Number [id number] Subscriber's Name Valente Limon Jr Relationship Self [...] Community Resource Use Y - lives at [facility] 06/2017 2:00pm Not Applicable Not Applicable [...] information available. Plan of Care Discharge Date 10/30/17 11:59pm Prescriptions See Medication Section Functional Status [...] FOR RESULTS. Specimen sent for testing to: [address] [address] Ova and Parasites (LAB) KDHE RESULT RECEIVED 09/09/2017 8:19am 09/17/2017 9:29am PLEASE REFER TO HARD COPY FOR RESULTS. Specimen sent for testing to: [facility] Field Building [address] [place] [address] Urine Color YELLOW YELLOW 10/02/2017 UNK 10/02/2017 2: 26pm Urine Appearance Clear CLEAR 10/02/2017 UNK 10/03/19 18 2:26pm Urine Specific [place] 1.015 1.005-1.025 10/02/2017 UN K 10/02/2017 2:26pm [...] 2017 2:26pm Urine Nitrate Negative NEGATIVE 10/02/2017 [facility] 8 2:26pm Urine Leukocyte Esterase Negative NEGATIVE 10/02/2017 [facility] 10/02/2017 2:26pm Prostate Specific Antigen 0.7 ng/mL [...] 18 1:46pm Globulin 4.5 g/dL 2.0-5.0 10/21/2017 1:17pm [...] 0.90-2.0 10/21/2017 1:17pm 018 2:57pm Glucose Level 94 mg/dL 74-106 10/30/2017 10:16am 018 10:37am Blood Urea Nitrogen 16 mg/dL 7-18 10/30/2017 10:16am 0 10/30/2017 10:37am Creatinine 1.4 mg/dL A 0.6-1.3 10/30/2017 10:16am 10/30/2017 10:37am BUN/Creatinine Ratio 11.5 RATIO 10/30/2017 10:16am 10/30/2017 10:37am Calcium Level 9.3 mg/dL 8.5-10.1 10/30/2017 10:16am 2017 10:37am Sodium Level 139 mmol/l 136-145 10/30/2017 10:16am 10/31/19 10:37am Potassium Level 4.6 mmol/L 3.5-5.1 10/30/2017 10:16am 10/30 10:37am Chloride Level 105 mmol/L 98-107 10/30/2017 10:16am 2017 10:37am Carbon Dioxide Level 26.5 mmol/L 21.0-32.0 8 10:16am 10/30/2017 10:37am Glomerular Filtration Rate Calc 54.23 mL/min >60 10/30/2017 10:16am 10/30/2017 10:37am Procedures No procedure information available. Encounters Encounter Location Arrival/Admit Date Discharge[facility]art Date [facility] 10:11am 11:59pm RUBENTHALER, SRIDHAR DO Departed [facility]. 10/23/17 11:03am 11:59pm [facility]ENTHALER, [facility] 10/22/17 1:06pm 8 11:59pm [facility]ENTHALER, [facility]HAR [facility] 10/21/17 1:09pm 8 11:59pm RUBENTHALER, SRIDHAR DO Departed [facility]. 10/06/17 11:03am 11:59pm [facility] 10/02/17 1:09pm 8 11:59pm RUBENTHALER, SRIDHAR DO [facility]. CTR. 09/28/17 12:44pm 11:59pm RUBENTHALER, SRIDHAR DO Departed [facility]. CTR. 09/21/17 1:20pm 8 11:59pm RUBENTHALER, SRIDHAR DO [facility]. CTR. 09/18/17 2:21pm 8 11:59pm RUBENTHALER, SRIDHAR DO Departed Clinic [facility]. 09/17/17 11:05am 11:59pm RUBENTHALER, SRIDHAR DO Discharged Inpatient [facility]. 09/06/17 1:10pm 09/10/17 5:40pm RUBENTHALERYAJAIRAI DO Departed Emergency Room [facility]. 09/06/17 10: 25am 09/06/17 1:10pm GARCIA MARKHAM MD Departed [facility]. 08/28/17 3:04pm 8 11:59pm RUBENTHALER SRIDHAR DO Departed [facility]. 08/20/17 8:22am 8 11:59pm RUBENTHALER SRIDHAR DO Departed [facility]. 08/03/17 2:18pm 8 11:59pm RUBENTHALER, SRIDHAR DO Departed Clinic [facility]. 07/30/17 2:47pm 8 11:59pm RUBENTHALER, SRIDHRA DO Departed [facility]. 07/23/17 8:21am 8 11:59pm MARVEL BROWN MD
--- OUTSIDE RECORDS SUMMARY | 2019-09-03 18:54 | XMS REPORT | Continuity of Care Document ---
Author Organization Unknown Address [address] [place] [address] Phone Unavailable Care Team Providers Care Brick Tosser Name Role Phone MARIIADiamante SRIDHAR PCP Insurance Providers Guarantor Valente Limon Jr Address [address] [place] [phone] Payer Medicare Policy Number [id number] Subscriber's Name Valente Limon Jr Relationship Self / Same As Patient [facility] Policy Number [id number] Subscriber's Name Valente Limon Jr Relationship Self [...] Community Resource Use Y - lives at [facility] 06/2017 2:00pm Not Applicable Not Applicable [...] information available. Plan of Care Discharge Date 11/12/17 11:59pm Prescriptions See Medication Section Functional Status [...] FOR RESULTS. Specimen sent for testing to: [address] [address] Ova and Parasites (LAB) KDHE RESULT RECEIVED 09/09/2017 8:19am 09/17/2017 9:29am PLEASE REFER TO HARD COPY FOR RESULTS. Specimen sent for testing to: [facility] Field Building [address] [place] [address] Urine Color YELLOW YELLOW 10/02/2017 UNK 10/02/2017 2: 26pm Urine Appearance Clear CLEAR 10/02/2017 UNK 10/03/19 18 2:26pm Urine Specific [place] 1.015 1.005-1.025 10/02/2017 UN K 10/02/2017 2:26pm [...] 2017 2:26pm Urine Nitrate Negative NEGATIVE 10/02/2017 [facility] 8 2:26pm Urine Leukocyte Esterase Negative NEGATIVE 10/02/2017 [facility] 10/02/2017 2:26pm Prostate Specific Antigen 0.7 ng/mL [...] 0.90-2.0 10/21/2017 1:17pm 018 2:57pm Glucose Level 98 mg/dL 74-106 11/12/2017 3:07pm 11/13/19 3:30pm Blood Urea Nitrogen 22 mg/dL A 7-18 11/12/2017 3:07pm 3:30pm Creatinine 1.5 mg/dL A 0.6-1.3 11/12/2017 3:07pm 11/12/2017 3:30pm BUN/Creatinine Ratio 14.4 RATIO 11/12/2017 3:07pm 0 11/12/2017 3:30pm Calcium Level 10.3 mg/dL A 8.5-10.1 11/12/2017 3:07pm 018 3:30pm Sodium Level 138 mmol/l 136-145 11/12/2017 3:07pm 8 3:30pm Potassium Level 3.2 mmol/L A 3.5-5.1 11/12/2017 3:07pm 2017 3:30pm Chloride Level 99 mmol/L 98-107 11/12/2017 3:07pm 018 3:30pm Carbon Dioxide Level 31.8 mmol/L 21.0-32.0 8 3:07pm 11/12/2017 3:30pm Glomerular Filtration Rate Calc 50.08 mL/min >60 11/12/2017 3:07pm 11/12/2017 3:30pm Procedures No procedure information available. Encounters Encounter Location Arrival/Admit Date Discharge[facility] 2:59pm 8 11:59pm RUBENTHALER[facility] 10/30/17 10:11am 11:59pm RUBENTHALER, [facility] 10/23/17 11:03am 11:59pm [facility]ENTHALER, [facility] 10/22/17 1:06pm 8 11:59pm RUBENTHALER, SRIDHAR DO Departed [facility]. CTR. 10/21/17 1:09pm 8 11:59pm RUBENTHALER, SRIDHAR DO Departed [facility]. CTR. 10/06/17 11:03am 11:59pm [facility] 10/02/17 1:09pm 8 11:59pm RUBENTHALER, SRIDHAR DO [facility]. CTR. 09/28/17 12:44pm 11:59pm RUBENTHALER, SRIDHAR DO Departed Clinic [facility]. 09/21/17 1:20pm 8 11:59pm RUBENTHALER, SRIDHAR DO Departed Clinic [facility]. 09/18/17 2:21pm 8 11:59pm RUBENTHALER, SRIDHAR DO Departed Clinic [facility]. 09/17/17 11:05am 11:59pm RUBENTHALER, SRIDHAR DO Discharged Inpatient [facility]. 09/06/17 1:10pm 09/10/17 5:40pm RUBENTHALER, SRIDHAR DO Departed Emergency Room [facility]. 09/06/17 10: 25am 09/06/17 1:10pm GARCIA MARKHAM MD Departed [facility]. 08/28/17 3:04pm 8 11:59pm RUBENTHALER, SRIDHAR DO Departed [facility]. 08/20/17 8:22am 8 11:59pm RUBENTHALER, SRIDHAR DO Departed [facility]. 08/03/17 2:18pm 8 11:59pm RUBENTHALER, SRIDHAR DO Departed Clinic [facility]. 07/30/17 2:47pm 8 11:59pm RUBENTHALER, SRIDHAR DO Departed [facility]. 07/23/17 8:21am 8 11:59pm MARVEL BROWN MD
--- OUTSIDE RECORDS SUMMARY | 2019-09-03 18:54 | XMS REPORT | Continuity of Care Document ---
Author Organization Unknown Address [address] [place] [address] Phone Unavailable Care Team Providers Care Emg Technician Name Role Phone MARIIADiamante SRIDHAR PCP Insurance Providers Guarantor Valente Limon Jr Address [address] [place] [phone] Payer Medicare Policy Number [id number] Subscriber's Name Valente Limon Jr Relationship Self / Same As Patient [facility] Policy Number [id number] Subscriber's Name Valente Limon Jr Relationship Self [...] Community Resource Use Y - lives at [facility] 06/2017 2:00pm Not Applicable Not Applicable [...] information available. Plan of Care Discharge Date 12/21/17 11:59pm Prescriptions See Medication Section Functional Status [...] FOR RESULTS. Specimen sent for testing to: [address] [address] Ova and Parasites (LAB) KDHE RESULT RECEIVED 09/09/2017 8:19am 09/17/2017 9:29am PLEASE REFER TO HARD COPY FOR RESULTS. Specimen sent for testing to: [facility] Field Building [address] [place] [address] Urine Color YELLOW YELLOW 10/02/2017 UNK 10/02/2017 2: 26pm Urine Appearance Clear CLEAR 10/02/2017 UNK 10/03/19 18 2:26pm Urine Specific [place] 1.015 1.005-1.025 10/02/2017 UN K 10/02/2017 2:26pm Urine pH 7.0 5.0-7.0 10/02/2017 UNK 10/02/2017 2:26p m Urine Glucose Negative NEGATIVE 10/02/2017 UNK 8 2:26pm Urine Bilirubin Negative NEGATIVE 10/02/2017 [facility] 018 2:26pm Urine Ketones Negative NEGATIVE 10/02/2017 [facility] 8 2:26pm Urine Protein Negative mg/dL NEGATIVE 10/02/2017 [facility] 8 2:26pm Urine RBC (Auto) Negative NEGATIVE 10/02/2017 [facility] 2017 2:26pm Urine Urobilinogen 0.2 mg/dL 0.2-1.0 10/02/2017 K 2017 2:26pm Urine Nitrate Negative NEGATIVE 10/02/2017 [facility] 8 2:26pm Urine Leukocyte Esterase Negative NEGATIVE 10/02/2017 K 10/02/2017 2:26pm Prostate Specific Antigen 0.7 [...] 12/22/19 11:42am Hematocrit 42.4 % 40.0-50.0 12/21/2017 11:2212/22/19 11:42am Mean Corpuscular Volume 99 fL A [...] x10^3/uL 0.0-0.1 12/21/2017 11:22am 0 12/21/2017 11:42am Glucose Level 97 mg/dL 74-106 12/21/2017 11: 018 12:11pm Blood Urea Nitrogen 19 mg/dL A 7-18 12/21/2017 11:22am 0 12/21/2017 12:11pm Creatinine 1.2 mg/dL 0.6-1.3 12/21/2017 11:12/21/2017 12:11pm BUN/Creatinine Ratio 15.7 RATIO 12/21/2017 11:12/21/2017 12:11pm Calcium Level 9.2 mg/dL 8.5-10.1 12/21/2017 11:2017 12:11pm Sodium Level 141 mmol/l 136-145 12/21/2017 11:12/22/19 18 12:11pm Potassium Level 3.1 mmol/L A 3.5-5.1 12/21/2017 11:12/21 12:11pm Chloride Level 103 mmol/L 98-107 12/21/2017 11:2017 12:11pm Carbon Dioxide Level 29.1 mmol/L 21.0-32.0 8 11:12/21/2017 12:11pm Albumin 3.7 g/dL 3.4-5.0 12/21/2017 11:12/21/2017 12 [...] U/L A 15-37 12/21/2017 11:22am 12/21/2017 12:11pm Glomerular Filtration Rate Calc >60 mL/min >60 12/21/2017 11:22am 12/21/2017 12:11pm Total Creatine Kinase 609 U/L A 39-308 12/21/2017 11:22am 12/21/2017 12:11pm Creatine Kinase MB 1.1 ng/mL 0-3.6 12/21/2017 11:22am 12:11pm Troponin I < 0.02 ng/mL 0.00-0.06 12/21/2017 11:22am 12/22/19 18 12:11pm Procedures No procedure information available. Encounters Encounter Location Arrival/Admit Date Discharge/Depart Date Attending Provider Departed [facility]. 12/21/17 11:17am 11:59pm ALEXEY FUENTES APRN Departed [facility]. 12/10/17 2:53pm 8 11:59pm RUBSRIDHAR DELGADO DO Departed [facility]. 12/01/17 1:37pm 8 11:59pm RUBENTHALERYAJAIRAI DO Departed [facility]. 11/12/17 2:59pm 8 11:59pm RUBENTHALER SRIDHAR DO Departed [facility]. 10/30/17 10:11am 11:59pm RUBENTHALER, SRIDHAR DO Departed [facility]. 10/23/17 11:03am 11:59pm RUBENTHALERYAJAIRAI DO Departed [facility]. 10/22/17 1:06pm 8 11:59pm RUBENTHALER, SRIDHAR DO Departed [facility]. 10/21/17 1:09pm 8 11:59pm RUBENTHALERYAJAIRAI DO Departed [facility]. 10/06/17 11:03am 11:59pm SADAF DARLING MD Departed [facility]. 10/02/17 1:09pm 8 11:59pm RUBENTHALERYAJAIRAI DO Departed Clinic [facility]. 09/28/17 12:44pm 11:59pm RUBENTHALER SRIDHAR DO Departed [facility]. 09/21/17 1:20pm 8 11:59pm RUBENTHALERYAJAIRAI DO Departed [facility]. 09/18/17 2:21pm 8 11:59pm RUBENTHALERYAJAIRAI DO Departed Clinic [facility]. 09/17/17 11:05am 11:59pm RUBENTHALERYAJAIRAI DO Discharged Inpatient [facility]. 09/06/17 1:10pm 09/10/17 5:40pm RUBLOWELLALESRIDHAR Bobby DO Departed Emergency Room [facility]. 09/06/17 10: 25am 09/06/17 1:10pm GARCIA MARKHAM MD Departed [facility]. 08/28/17 3:04pm 8 11:59pm RUBENTHALERSRIDHAR DO
[2019-09-03 18:55] LABS: BASOPHILS % (AUTO) 0 % (0-10); EOSINOPHILS # (AUTO) 0.1 10^3/uL (0.0-0.3); EOSINOPHILS % (AUTO) 1 % (0-10); HEMATOCRIT 38 % (40-54); HEMOGLOBIN 12.9 G/DL (13.3-17.7); LYMPHOCYTES # (AUTO) 1.2 X 10^3 (1.0-4.0); LYMPHOCYTES % (AUTO) 19 % (12-44); MEAN CORPUSCULAR HEMOGLOBIN 32 PG (25-34); MEAN CORPUSCULAR HGB CONC 34 G/DL (32-36); MEAN CORPUSCULAR VOLUME 95 FL (80-99); MEAN PLATELET VOLUME 9.4 FL (7.4-10.4); MONOCYTES # (AUTO) 0.3 X 10^3 (0.0-1.0); MONOCYTES % (AUTO) 4 % (0-12); NEUTROPHILS # (AUTO) 4.7 X 10^3 (1.8-7.8); NEUTROPHILS % (AUTO) 75 % (42-75); PLATELET COUNT 299 10^3/uL (130-400); RED CELL DISTRIBUTION WIDTH 14.3 % (10.0-14.5); WHITE BLOOD COUNT 6.3 10^3/uL (4.3-11.0)
--- OUTSIDE RECORDS SUMMARY | 2019-09-03 18:55 | XMS REPORT | Continuity of Care Document ---
Author Organization Unknown Address [address] [place] [address] Phone Unavailable Care Team Providers Care Dealer Accounts Investigator Name Role Phone MARSHA SRIDHAR PCP Insurance Providers Guarantor Valente Limon Jr Address [address] [place] [phone] Payer Medicare Policy Number [id number] Subscriber's Name Valente Limon Jr Relationship Self / Same As Patient [facility]ayer [facility] Policy Number [id number] Subscriber's Name Valente Limon Jr Relationship Self [...] Community Resource Use Y - lives at [facility] 06/2017 2:00pm Not Applicable Not Applicable [...] information available. Plan of Care Discharge Date 10/21/17 11:59pm Prescriptions See Medication Section Functional Status [...] FOR RESULTS. Specimen sent for testing to: [address] [address] Ova and Parasites (LAB) KDHE RESULT RECEIVED 09/09/2017 8:19am 09/17/2017 9:29am PLEASE REFER TO HARD COPY FOR RESULTS. Specimen sent for testing to: [facility] Field Building [address] [place] [address] Urine Color YELLOW YELLOW 10/02/2017 UNK 10/02/2017 2: 26pm Urine Appearance Clear CLEAR 10/02/2017 UNK 10/03/19 18 2:26pm Urine Specific [place] 1.015 1.005-1.025 10/02/2017 UN K 10/02/2017 2:26pm Urine pH 7.0 5.0-7.0 10/02/2017 UNK 10/02/2017 2:26p m Urine Glucose Negative NEGATIVE 10/02/2017 [facility] 8 2:26pm Urine Bilirubin Negative NEGATIVE 10/02/2017 [facility] 018 2:26pm Urine Ketones Negative NEGATIVE 10/02/2017 K 8 2:26pm Urine Protein Negative mg/dL NEGATIVE 10/02/2017 K 8 2:26pm Urine RBC (Auto) Negative NEGATIVE 10/02/2017 K 2017 2:26pm Urine Urobilinogen 0.2 mg/dL 0.2-1.0 10/02/2017 [facility] 2017 2:26pm Urine Nitrate Negative NEGATIVE 10/02/2017 [facility] 8 2:26pm Urine Leukocyte Esterase Negative NEGATIVE 10/02/2017 [facility] 10/02/2017 2:26pm Prostate Specific Antigen [...] Basophils # (Auto) 0.0 x10^3/uL 0.0-0.1 10/21/2017 1:17 1:32pm Glucose Level 126 mg/dL A 74-106 10/21/2017 1:10/22/19 18 1:46pm Blood Urea Nitrogen 40 mg/dL A 7-18 10/21/2017 1:pm 1:46pm Creatinine 1.7 mg/dL A 0.6-1.3 10/21/2017 1:10/21/2017 1:46pm BUN/Creatinine Ratio 24.2 RATIO 10/21/2017 1:17pm 0 10/21/2017 1:46pm Calcium Level 9.4 mg/dL 8.5-10.1 10/21/2017 1: 018 1:46pm Sodium Level 136 mmol/l 136-145 10/21/2017 1: 8 1:46pm Potassium Level 2.7 mmol/L CL 3.5-5.1 10/21/2017 1:2017 1:46pm CRITICAL RESULT VERIFIED BY REPEAT ANALYSIS AND/OR DILUTION CALLED TO AND REPEATED BACK BY: MANDA MURPHY LOCATION: [facility], 10/21/17, 1345, ANIACA Chloride Level 92 mmol/L A 98-107 10/21/2017 1:pm 018 1:46pm Carbon Dioxide Level 30.4 mmol/L 21.0-32.0 8 1:10/21/2017 1:46pm Albumin 3.5 g/dL 3.4-5.0 10/21/2017 1:10/21/2017 1:4 6pm Total Protein 8.0 g/dL 6.4-8.2 10/21/2017 1:10/22/19 18 1:46pm Globulin 4.5 g/dL 2.0-5.0 10/21/2017 1:10/21/2017 1: 46pm Albumin/Globulin Ratio 0.8 A 1.1-2.5 10/21/2017 1:10/21/2017 1:46pm Total Bilirubin 0.4 mg/dL 0.2-1.0 10/21/2017 1:2017 1:46pm Direct Bilirubin 0.1 mg/dL 0.0-0.2 10/21/2017 1:10/21 1:46pm Alkaline Phosphatase 130 U/L A 46-116 10/21/2017 1:17pm 0 10/21/2017 1:46pm Alanine Aminotransferase (ALT/SGPT) 21 U/L 12-7 8 10/21/2017 1:17pm 10/21/2017 1:46pm Aspartate Amino Transf (AST/SGOT) 18 U/L 15-37 10/21/2017 1:17pm 10/21/2017 1:46pm Glomerular Filtration Rate Calc 43.34 mL/min >60 10/21/2017 1:17pm 10/21/2017 1:46pm Magnesium Level 2.1 mg/dL 1.8-2.4 10/21/2017 1:17pm 2017 1:46pm Troponin I < 0.02 ng/mL 0.00-0.06 10/21/2017 1:17pm 8 1:46pm Digoxin Level < 0.2 ng/mL A 0.90-2.0 10/21/2017 1:17pm 018 2:57pm Procedures No procedure information available. Encounters Encounter Location Arrival/Admit Date Discharge/Depart Date Attending Provider Departed [facility] CTR. 10/21/17 1:09pm 8 11:59pm [facility] 11:03am 11:59pm [facility] 10/02/17 1:09pm 8 11:59pm RUBSRIDHAR DELGADO DO Departed [facility] CTR. 09/28/17 12:44pm 11:59pm RUBSRIDHAR DELGADO DO Departed [facility] CTR. 09/21/17 1:20pm 8 11:59pm RUBSRIDHAR DELGADO DO Departed [facility]. CTR. 09/18/17 2:21pm 8 11:59pm RUBSRIDHAR DELGADO DO Departed [facility]. CTR. 09/17/17 11:05am 11:59pm SRIDHAR LARSON DO Discharged Inpatient [facility]. CTR. 09/06/17 1:10pm 09/10/17 5:40pm SRIDHAR LARSON DO Departed Emergency Room [facility] CTR. 09/06/17 10: 25am 09/06/17 1:10pm GARCIA MARKHAM MD Departed Clinic [facility] CTR. 08/28/17 3:04pm 8 11:59pm RUBSRIDHAR DELGADO DO Departed Clinic [facility] CTR. 08/20/17 8:22am 8 11:59pm RUBSRIDHAR DELGADO DO Departed Clinic [facility] CTR. 08/03/17 2:18pm 8 11:59pm RUBSRIDHAR DELGADO DO Departed Clinic [facility] CTR. 07/30/17 2:47pm 8 11:59pm RUBSRIDHAR DELGADO DO Departed Clinic [facility] CTR. 07/23/17 8:21am 8 11:59pm MARVEL BROWN MD
--- OUTSIDE RECORDS SUMMARY | 2019-09-03 18:55 | XMS REPORT | Continuity of Care Document ---
Author Organization Unknown Address [address] [place] [id number] Phone Unavailable Care Team Providers Care Polls Or Surveys Interviewer Name Role Phone MARIIADiamante SRIDHAR PCP Insurance Providers Guarantor Valente Limon Jr Address [address] [place] [phone] Payer Medicare Policy Number [id number] Subscriber's Name Valente Limon Jr [facility] Policy Number [id number] Subscriber's Name Valente Limon Jr Relationship Self [...] Community Resource Use Y - lives at [facility] 06/2017 2:00pm Not Applicable Not [...] information available. Plan of Care Discharge Date 10/22/17 11:59pm Prescriptions See Medication Section Functional Status [...] FOR RESULTS. Specimen sent for testing to: [address] [address] [facility] (LAB) KDHE RESULT RECEIVED 09/09/2017 8:19am 09/17/2017 9:29am PLEASE REFER TO HARD COPY FOR RESULTS. Specimen sent for testing to: [facility] Field Building [address] [place] [address] Urine Color YELLOW YELLOW 10/02/2017 UNK 10/02/2017 2: 26pm Urine Appearance Clear CLEAR 10/02/2017 UNK 10/03/19 18 2:26pm Urine Specific [place] 1.015 1.005-1.025 10/02/2017 UN K 10/02/2017 2:26pm Urine pH 7.0 5.0-7.0 10/02/2017 UNK 10/02/2017 2:26p m Urine Glucose Negative NEGATIVE 10/02/2017 K 8 2:26pm Urine Bilirubin Negative NEGATIVE 10/02/2017 [facility] 018 2:26pm Urine Ketones Negative NEGATIVE 10/02/2017 [facility] 8 2:26pm Urine Protein Negative mg/dL NEGATIVE 10/02/2017 K 8 2:26pm Urine RBC (Auto) Negative NEGATIVE 10/02/2017 K 2017 2:26pm Urine Urobilinogen 0.2 mg/dL 0.2-1.0 10/02/2017 K 2017 2:26pm Urine Nitrate Negative NEGATIVE 10/02/2017 [facility] 8 2:26pm Urine Leukocyte Esterase Negative [...] (Auto) 0.0 x10^3/uL 0.0-0.1 10/21/2017 1: 1:32pm Glucose Level 126 mg/dL A 74-106 10/21/2017 1:17pm 07/18/20 18 1:46pm Blood Urea Nitrogen 40 mg/dL A 7-18 10/21/2017 1: 1:46pm Creatinine 1.7 mg/dL A 0.6-1.3 10/21/2017 1:10/21/2017 1:46pm BUN/Creatinine Ratio 24.2 RATIO 10/21/2017 1:17pm 0 10/21/2017 1:46pm Calcium Level 9.4 mg/dL 8.5-10.1 10/21/2017 1: 018 1:46pm Sodium Level 136 mmol/l 136-145 10/21/2017 1: 8 1:46pm Potassium Level 2.7 mmol/L CL 3.5-5.1 10/21/2017 1:2017 1:46pm CRITICAL RESULT VERIFIED BY REPEAT ANALYSIS AND/OR DILUTION CALLED TO AND REPEATED BACK BY: MANDA MURPHY LOCATION: [facility], 10/21/17, [facility], [facility] Chloride Level 92 mmol/L A 98-107 10/21/2017 1: 018 1:46pm Carbon Dioxide Level 30.4 mmol/L [...] Arrival/Admit Date Discharge/Depart Date Attending Provider Departed [facility]. CTR. 10/22/17 1:06pm 8 11:59pm RUBENTHALERYAJAIRAI DO Departed [facility]. CTR. 10/21/17 1:09pm 8 11:59pm RUBENTHALERYAJAIRAI DO Departed [facility]. CTR. 10/06/17 11:03am 11:59pm [facility] 1:09pm 8 11:59pm RUBENTHALERYAJAIRAI DO Departed [facility]. CTR. 09/28/17 12:44pm 11:59pm RUBENTHALERYAJAIRAI DO Departed [facility]. CTR. 09/21/17 1:20pm 8 11:59pm RUBENTHALER SRIDHAR DO Departed [facility]. CTR. 09/18/17 2:21pm 8 11:59pm RUBENTHALER, SRIDHAR DO Departed Clinic [facility]. 09/17/17 11:05am 11:59pm RUBENTHALER SRIDHAR DO Discharged Inpatient [facility]. 09/06/17 1:10pm 09/10/17 5:40pm RUBENTHALERYAJAIRAI DO Departed Emergency Room [facility] CTR. 09/06/17 10: 25am 09/06/17 1:10pm GARCIA MARKHAM MD Departed Clinic [facility] CTR. 08/28/17 3:04pm 8 11:59pm RUBENTHALERYAJAIRAI DO Departed [facility]. CTR. 08/20/17 8:22am 8 11:59pm RUBENTHALER, SRIDHAR DO Departed [facility] CTR. 08/03/17 2:18pm 8 11:59pm RUBENTHALERYAJAIRAI DO Departed [facility] CTR. 07/30/17 2:47pm 8 11:59pm RUBENTHALERYAJAIRAI DO Departed [facility] CTR. 07/23/17 8:21am 8 11:59pm MARVEL BROWN MD
--- OUTSIDE RECORDS SUMMARY | 2019-09-03 18:55 | XMS REPORT | Continuity of Care Document ---
Author Organization Unknown Address [address] [place] [address] Phone Unavailable Care Team Providers Care Airplane Electrician Name Role Phone SRIDHAR LARSON DO PCP Insurance Providers Guarantor Valente Limon Jr Address [address] [place] [phone] Payer [facility] Policy Number [id number] Subscriber's Name Valente Limon Jr Relationship Self / Same As Patient Effective Date 16 Payer Medicare Policy Number [id number] Subscriber's Name Valente Limon Jr Relationship Self / Same As Patient Effective Date 16 Advance Directives No advance directive information available. 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 Hospital Discharge Instructions No hospital discharge instruction information available. Plan of Care Discharge Date 10/15/16 11:59pm Prescriptions See Medication Section Functional Status No functional status information available. Allergies, Adverse Reactions, Alerts No known allergies. Immunizations No immunization information available. Vital Signs No vital sign information available. Results Laboratory Results Test Name Result Units Flags Reference Collection Date/Time Result Date/Time Comments White Blood Count 7.7 x10^3/uL 4.5-13.5 09/18/2016 9: 10:46am Red Blood Count 4.01 x10^6/uL A 4.60-6.20 09/18/2016 9: 10:46am Hemoglobin 13.0 g/dl A 13.5-18.0 09/18/2016 9: 7 10:46am Hematocrit 39.8 % A 40.0-50.0 09/18/2016 9: 7 10:46am Mean Corpuscular Volume 99 fL A 82-96 09/18/2016 9:13a m 09/18/2016 10:46am Mean Corpuscular Hemoglobin 32.4 pg 28.0-33.0 9:09/18/2016 10:46am Mean Corpuscular Hemoglobin Concent 32.7 g/dL 32.0 -36.0 09/18/2016 9:09/18/2016 10:46am RDW Coefficient of Variation 13.7 % 11.5-14.5 0 09/18/2016 9:09/18/2016 10:46am RDW Standard Deviation 48.3 fL A 35.1-43.9 09/18/2016 9:13 am 09/18/2016 10:46am Platelet Count 244 x10^3/uL 150-400 09/18/2016 9:2016 10:46am Mean Platelet Volume 9.7 fL 7.0-11.0 09/18/2016 9:09/18/2016 10:46am Neutrophils (%) (Auto) 70.8 % 40.0-79.0 09/18/2016 9:09/18/2016 10:46am Lymphocytes (%) (Auto) 20.3 % 10.0-50.0 09/18/2016 9: am 09/18/2016 10:46am Monocytes (%) (Auto) 7.2 % 3.0-13.0 09/18/2016 9:09/18/2016 10:46am Eosinophils (%) (Auto) 1.6 % 1.0-3.0 09/18/2016 9:09/18/2016 10:46am Basophils (%) (Auto) 0.1 % 0.0-2.0 09/18/2016 9:13am 0 09/18/2016 10:46am Neutrophils # (Auto) 5.5 x10^3 1.5-6.6 09/18/2016 9:13am 0 09/18/2016 10:46am Lymphocytes # (Auto) 1.6 x10/uL 1.5-3.5 09/18/2016 9:13am 0 09/18/2016 10:46am Monocytes # (Auto) 0.6 x10^3/uL 0.0-1.0 09/18/2016 9: 10:46am Eosinophils # (Auto) 0.1 x10^3/uL 0.0-0.7 7 9:09/18/2016 10:46am Basophils # (Auto) 0.0 x10^3/uL 0.0-0.1 09/18/2016 9: 10:46am Glucose Level 75 mg/dL 74-106 09/18/2016 9:09/19/19 17 11:33am Blood Urea Nitrogen 18 mg/dL 7-18 09/18/2016 9: 11:33am Creatinine 1.1 mg/dL 0.6-1.3 09/18/2016 9:09/18/2016 11:33am BUN/Creatinine Ratio 17.0 RATIO 09/18/2016 9: 0 09/18/2016 11:33am Calcium Level 9.1 mg/dL 8.5-10.1 09/18/2016 9: 017 11:33am Sodium Level 143 mmol/l 136-145 09/18/2016 9: 7 11:33am Potassium Level 3.8 mmol/L 3.5-5.1 09/18/2016 9:2016 11:33am Chloride Level 106 mmol/L 98-107 09/18/2016 9: 017 11:33am Carbon Dioxide Level 28.0 mmol/L 21.0-32.0 7 9:09/18/2016 11:33am Albumin 3.7 g/dL 3.4-5.0 09/18/2016 9:09/18/2016 11: 33am Total Protein 7.1 g/dL 6.4-8.2 09/18/2016 9:09/19/19 17 11:33am Globulin 3.4 g/dL 2.0-5.0 09/18/2016 9:09/18/2016 11 :33am Albumin/Globulin Ratio 1.1 1.1-2.5 09/18/2016 9:09/18/2016 11:33am Total Bilirubin 0.4 mg/dL 0.2-1.0 09/18/2016 9:2016 11:33am Direct Bilirubin 0.1 mg/dL 0.0-0.2 09/18/2016 9:09/18 11:33am Alkaline Phosphatase 128 U/L A 46-116 09/18/2016 9:13 0 09/18/2016 11:33am Alanine Aminotransferase (ALT/SGPT) 31 U/L 12-7 8 09/18/2016 9:09/18/2016 11:33am Aspartate Amino Transf (AST/SGOT) 20 U/L 15-37 09/18/2016 9:09/18/2016 11:33am Glomerular Filtration Rate Calc >60 mL/min >60 09/18/2016 9:1309/18/2016 11:33am Urine Color YELLOW YELLOW 10/13/2016 9:10/13/2016 9:50am Urine Appearance Clear CLEAR 10/13/2016 9:10/13 9:50am Urine Specific [place] 1.020 1.005-1.025 10/13 9:10/13/2016 9:50am Urine pH 6.0 5.0-7.0 10/13/2016 9:10/13/2016 9: 50am Urine Glucose Negative NEGATIVE 10/13/2016 9:2016 9:50am Urine Bilirubin Negative NEGATIVE 10/13/2016 9:10/04 9:50am Urine Ketones Negative NEGATIVE 10/13/2016 9:2016 9:50am Urine Protein Negative mg/dL NEGATIVE 10/13/2016 9:2016 9:50am Urine RBC (Auto) Negative NEGATIVE 10/13/2016 9:01/2017 9:50am Urine Urobilinogen 0.2 mg/dL 0.2-1.0 10/13/2016 9:01/2017 9:50am Urine Nitrate Negative NEGATIVE 10/13/2016 9:2016 9:50am Urine Leukocyte Esterase Negative NEGATIVE 10/13 9:10/13/2016 9:50am Prostate Specific Antigen 0.8 ng/mL 0.0-4.0 10/04 9:2710/14/2016 3:53pm Procedures No procedure information available. Encounters Encounter Location Arrival/Admit Date Discharge/Depart Date Attending Provider Departed [facility]. [facility]. 10/15/16 7:42am 7 11:59pm [facility] 10/[facility] 9:20am 7 11:59pm SADAF DARLING MD [facility]. [facility]. 09/18/16 9:04am 7 11:59SRIDHAR Luna DO Departed [facility]. CTR. 08/05/16 7:26am 7 11:59pm SADAF DARLING MD Departed [facility]. CTR. 07/31/16 9:14am 7 11:59pm SADAF DARLING MD Departed [facility]. CTR. 07/15/16 10:21am 11:59pm YADI MORRISON MD
--- OUTSIDE RECORDS SUMMARY | 2019-09-03 18:55 | XMS REPORT | Continuity of Care Document ---
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 Medications Current Home Medications Medication Dose Units Route Directions Days/Qty Instructions Star t Date Ipratropium/Albuterol Sulfate 3 Ml 3 Ml Inhalation Bid 12/13/11 Digoxin 250 Mcg 250 Mcg Oral Daily 12/13/11 Aspirin 81 Mg 81 Mg Oral Daily 12/13/11 Metoprolol Tartrate 50 Mg 50 Mg Oral Bid 12/13/11 Rivaroxaban 20 Mg 20 Mg Oral Daily Docusate Sodium 100 Mg 100 Mg Oral Daily 0 12/13/11 Famotidine 20 Mg 20 Mg Oral Daily 2 Oxybutynin Chloride 5 Mg 5 Mg Oral Three Times Daily 12/13/11 Atorvastatin Calcium 40 Mg 40 Mg Oral Bedtime 12/13/11 Furosemide 80 Mg 80 Mg Oral Twice Daily 11/15 Aripiprazole 10 Mg 10 Mg Oral 01/16 Diltiazem Hcl 180 Mg 180 Mg Oral Twice Daily 01/17/12 Social History No social history. Hospital Discharge Instructions No hospital discharge instructions. Plan of Care Discharge Date 09/11/15 11:59pm Prescriptions See Medication Section Functional Status No functional status results. Allergies, Adverse Reactions, Alerts No known allergies. Immunizations No immunization records. Vital Signs No known vital signs results. Results Laboratory Results Test Name Result Units Flags Reference Collection Date/Time Result Date/Time Comments Glucose Level 103 mg/dL 74-106 07/17/2015 3:49pm 07/17/19 16 4:19pm Blood Urea Nitrogen 17 mg/dL 7-18 07/17/2015 3:49pm 4:19pm Creatinine 1.4 mg/dL A 0.7-1.3 07/17/2015 3:49pm 07/17/2015 4:19pm BUN/Creatinine Ratio 12.5 RATIO 07/17/2015 3:49pm 0 07/17/2015 4:19pm Calcium Level 9.2 mg/dL 8.5-10.1 07/17/2015 3:49pm 016 4:19pm Sodium Level 141 mmol/l 136-145 07/17/2015 3:49pm 6 4:19pm Potassium Level 4.0 mmol/L 3.5-5.1 07/17/2015 3:49pm 2015 4:19pm Chloride Level 101 mmol/L 98-107 07/17/2015 3:49pm 016 4:19pm Carbon Dioxide Level 28.6 mmol/L 21.0-32.0 6 3:49pm 07/17/2015 4:19pm Glomerular Filtration Rate Calc 54.58 mL/min >60 07/17/2015 3:49pm 07/17/2015 4:19pm Prostate Specific Antigen 4.6 ng/mL A 0.0-4.0 07/05 3:49pm 07/17/2015 4:38pm Urine Color YELLOW YELLOW 08/02/2015 9:12am 08/02/2015 10:09am Urine Appearance Clear CLEAR 08/02/2015 9:1208/01 10:09am Urine Specific [place] 1.020 1.005-1.025 08/01 9:1208/02/2015 10:09am Urine pH 5.5 5.0-7.0 08/02/2015 9:1208/02/2015 10 :09am Urine Glucose Negative NEGATIVE 08/02/2015 9:12am 2015 10:09am Urine Bilirubin Negative NEGATIVE 08/02/2015 9:12am 07/06 10:09am Urine Ketones Negative NEGATIVE 08/02/2015 9:12am 2015 10:09am Urine Protein Negative mg/dL NEGATIVE 08/02/2015 9:12am 2015 10:09am Urine RBC (Auto) Negative NEGATIVE 08/02/2015 9:12 10:09am Urine Urobilinogen 0.2 mg/dL 0.2-1.0 08/02/2015 9:12am 10:09am Urine Nitrate Negative NEGATIVE 08/02/2015 9:122015 10:09am Urine Leukocyte Esterase Negative NEGATIVE 08/01 9:1208/02/2015 10:09am Glucose Level 98 mg/dL 74-106 08/23/2015 9:43am 08/23/19 16 11:23am Blood Urea Nitrogen 16 mg/dL 7-18 08/23/2015 9:43am 11:23am Creatinine 1.2 mg/dL 0.7-1.3 08/23/2015 9:43am 08/23/2015 11:23am BUN/Creatinine Ratio 13.9 RATIO 08/23/2015 9:43am 0 08/23/2015 11:23am Calcium Level 9.3 mg/dL 8.5-10.1 08/23/2015 9:43am 016 11:23am Sodium Level 140 mmol/l 136-145 08/23/2015 9:43am 6 11:23am Potassium Level 4.0 mmol/L 3.5-5.1 08/23/2015 9:43am 2015 11:23am Chloride Level 104 mmol/L 98-107 08/23/2015 9:43am 016 11:23am Carbon Dioxide Level 24.3 mmol/L 21.0-32.0 6 9:43am 08/23/2015 11:23am Glomerular Filtration Rate Calc >60 mL/min >60 08/23/2015 9:43am 08/23/2015 11:23am Prostate Specific Antigen 3.6 ng/mL 0.0-4.0 10/2015 8:35am 09/11/2015 9:20am Procedures No known history of procedures. Encounters Encounter Location Arrival/Admit Date [facility]charge[facility] 8:26am 6 11:59pm [facility] 08/23/15 9:34am 6 11:59pm [facility] 08/15/15 10:48am 11:59pm [facility] 08/02/15 9:04am 6 11:59pm SRIDHAR LARSON DO [facility]. CTR. 07/17/15 3:46pm 6 11:59pm SRIDHAR LARSON DO
--- OUTSIDE RECORDS SUMMARY | 2019-09-03 18:55 | XMS REPORT | Continuity of Care Document ---
Author Organization Unknown Address [address] [place] [address] Phone Unavailable Care Team Providers Care Electrodynamicist Name Role Phone SRIDHAR LARSON DO PCP Insurance Providers Payer Name Policy Number Subscriber Name Relationship Medicare [id number] Valente Limon Jr Self / Same A s Patient [facility] [id number] Valente Limon Jr Self / Same A [...] discharge instructions. Plan of Care Discharge Date 08/23/15 11:59pm Prescriptions See Medication Section Functional Status [...] Clear CLEAR 08/02/2015 9:1208/01 10:09am Urine Specific [place] 1.020 1.005-1.025 08/01 9:1208/02/2015 10:09am Urine pH 5.5 5.0-7.0 08/02/2015 9:1208/02/2015 10 :09am Urine Glucose Negative NEGATIVE 08/02/2015 9:12am 2015 10:09am Urine Bilirubin Negative NEGATIVE 08/02/2015 9:12am 07/06 10:09am Urine Ketones Negative NEGATIVE 08/02/2015 9:12am 2015 10:09am Urine Protein Negative mg/dL NEGATIVE 08/02/2015 9:12am 2015 10:09am Urine RBC (Auto) Negative NEGATIVE 08/02/2015 9:12am 10:09am Urine Urobilinogen 0.2 mg/dL 0.2-1.0 08/02/2015 9:12am 10:09am Urine Nitrate Negative NEGATIVE 08/02/2015 9:12am 2015 10:09am Urine Leukocyte Esterase Negative NEGATIVE 08/01 9:12am 08/02/2015 10:09am Glucose Level 98 mg/dL 74-106 08/23/2015 [...] >60 mL/min >60 08/23/2015 9:43am 08/23/2015 11:23am Procedures No known history of procedures. Encounters Encounter Location Arrival/Admit Date Discharge/Depart Date Attending Provider Departed [facility]. CTR. 08/23/15 9:34am 6 11:59pm [facility]/15 10:48am 11:59pm [facility] 08/02/15 9:04am 6 11:59pm [facility] 07/17/15 3:46pm 6 11:59pm SRIDHAR LARSON DO
--- OUTSIDE RECORDS SUMMARY | 2019-09-03 18:55 | XMS REPORT | Continuity of Care Document ---
Author Organization Unknown Address [address] [place] [address] Phone Unavailable Care Team Providers Care Pay Clerk Name Role Phone GARCIA MARKHAM MD PCP Insurance Providers Guarantor Valente Limon Jr Address [address] [place] [phone] Payer Medicare Policy Number [id number] Subscriber's Name Valente Limon Jr Relationship Self / Same As [facility] [id number] Subscriber's Name Valente Limon Jr Relationship Self / Same As Patient Advance Directives Directive Response Recorded Date/Time Advance Directives No 09/07/17 9:13am Advance Directive on File No 09/07/17 9:13a m Living Will No 09/07/17 9:13am Health Care Proxy No 09/07/17 9:13am Organ Donor No 09/07/17 9:13am Power of Design Verification Engineer No 09/07/17 9:13am Resuscitation Status Full Code 09/07/17 9:13am Problems [...] Applicable Not Applicable Smoking Status Never smoker 09/06/2017 2:00pm Not Applicable Not Ap plicable Smoking Status Start Date Stop Date Never smoker Hospital Discharge Instructions No hospital discharge instruction information available. Plan of Care Discharge Date 09/10/17 5:40pm Disposition 01 HOME, SELF-CARE Instructions/Education Provided Renal Failure Diet (DC ) Hypokalemia (GEN) Prescriptions See Medication Section Functional Status No [...] Signs Vital Response Date/Time Height 5 ft 10 in 09/06/2017 1:30pm Weight 327 lb 09/10/2017 4:21am Body Mass Index 46.9 kg/m^2 09/10/2017 4:21am Results Laboratory Results Test Name Result Units Flags Reference Collection Date/Time Result Date/Time Comments Thyroid Stimulating Hormone (TSH) 1.54 uIU/mL 0.358- 3.74 05/21/2017 7:46am 05/21/2017 4:35pm Prostate Specific Antigen 0.8 ng/mL 0.0-4.0 07/05 9:00am 07/23/2017 4:44pm Vitamin D 25-Hydroxy 36.0 ng/mL 30.0-59.9 08/20/2017 9:00am 08/21/2017 4:42pm Urine Protein Negative mg/dL NEGATIVE 09/06/2017 6:2017 6:39pm Urine Random Sodium 83 mmol/L 40-220 09/06/2017 6:pm 6:36pm Urine Creatinine 22.41 mg/dL 09/06/2017 6:09/06 6:36pm White Blood Count 8.3 x10^3/uL 4.5-13.5 09/10/2017 6: 7:44am Red Blood Count 4.05 x10^6/uL A 4.60-6.20 09/10/2017 6:10/2017 7:44am Hemoglobin 13.0 g/dl A 13.5-18.0 09/10/2017 6: 8 7:44am Hematocrit 38.1 % A 40.0-50.0 09/10/2017 6: 8 7:44am Mean Corpuscular Volume 94 fL 82-96 09/10/2017 6:27a m 09/10/2017 7:44am Mean Corpuscular Hemoglobin 32.1 pg 28.0-33.0 6:09/10/2017 7:44am Mean Corpuscular Hemoglobin Concent 34.1 g/dL 32.0 -36.0 09/10/2017 6:09/10/2017 7:44am RDW Coefficient of Variation 14.9 % A 11.5-14.5 0 09/10/2017 6:09/10/2017 7:44am RDW Standard Deviation 48.3 fL A 35.1-43.9 09/10/2017 6: am 09/10/2017 7:44am Platelet Count 255 x10^3/uL 150-400 09/10/2017 6:2017 7:44am Mean Platelet Volume 8.2 fL 7.0-11.0 09/10/2017 6:09/10/2017 7:44am Neutrophils (%) (Auto) 69.2 % 40.0-79.0 09/10/2017 6:27 am 09/10/2017 7:44am Lymphocytes (%) (Auto) 21.7 % 10.0-50.0 09/10/2017 6:27 am 09/10/2017 7:44am Monocytes (%) (Auto) 6.6 % 3.0-13.0 09/10/2017 6:27am 09/10/2017 7:44am Eosinophils (%) (Auto) 2.3 % 1.0-3.0 09/10/2017 6:27am 09/10/2017 7:44am Basophils (%) (Auto) 0.2 % 0.0-2.0 09/10/2017 6:27am 0 09/10/2017 7:44am Neutrophils # (Auto) 5.7 x10^3 1.5-6.6 09/10/2017 6:27am 0 09/10/2017 7:44am Lymphocytes # (Auto) 1.8 x10/uL 1.5-3.5 09/10/2017 6:27am 0 09/10/2017 7:44am Monocytes # (Auto) 0.6 x10^3/uL 0.0-1.0 09/10/2017 6:27am 7:44am Eosinophils # (Auto) 0.2 x10^3/uL 0.0-0.7 09/10/2017 6:27am 09/10/2017 7:44am Basophils # (Auto) 0.0 x10^3/uL 0.0-0.1 09/10/2017 6:27am 7:44am Urine Color RED YELLOW 09/08/2017 7:34pm 09/08/2017 9:35pm Urine Appearance Turbid CLEAR 09/08/2017 7:34pm 09/08 9:35pm Urine Specific [place] 1.015 1.005-1.025 09/08 7:34pm 09/08/2017 9:35pm Urine pH 6.5 5.0-7.0 09/08/2017 7:34pm 09/08/2017 9: 35pm Urine Glucose Negative NEGATIVE 09/08/2017 7:34pm 2017 9:35pm Urine Bilirubin Moderate NEGATIVE 09/08/2017 7:34pm 0608/2017 9:35pm Urine Ketones 15 A NEGATIVE 09/08/2017 7:34pm 018 9:35pm Urine Protein Confirmation 3+ NEGATIVE 09/08/2017 7 :34pm 09/08/2017 9:35pm Urine RBC (Auto) Large A NEGATIVE 09/08/2017 7:34pm 06/0 08/2017 9:35pm Urine Urobilinogen 1.0 mg/dL 0.2-1.0 09/08/2017 7:34pm 08/2017 9:35pm Urine Nitrate Positive A NEGATIVE 09/08/2017 7:34pm 2017 9:35pm Urine Leukocyte Esterase Negative NEGATIVE 09/08 7:34pm 09/08/2017 9:35pm Urine RBC >100 /HPF A [...] Yeast NONE NEGATIVE 09/08/2017 7:34pm 8 9:47pm Glucose Level 106 mg/dL 74-106 09/10/2017 6:27am 09/11/19 18 7:45am Blood Urea Nitrogen 16 mg/dL 7-18 09/10/2017 6:27am 7:45am Creatinine 1.1 mg/dL 0.6-1.3 09/10/2017 6:27am 09/10/2017 7:45am BUN/Creatinine Ratio 14.0 RATIO 09/10/2017 6:27am 0 09/10/2017 7:45am Calcium Level 9.6 mg/dL 8.5-10.1 09/10/2017 6:27am 018 7:45am Sodium Level 138 mmol/l 136-145 09/10/2017 6:27am 8 7:45am Potassium Level 3.9 mmol/L 3.5-5.1 09/10/2017 6:272017 7:45am Chloride Level 101 mmol/L 98-107 09/10/2017 6:27 018 7:45am Carbon Dioxide Level 28.5 mmol/L 21.0-32.0 8 6:09/10/2017 7:45am Albumin 3.1 g/dL A 3.4-5.0 09/10/2017 6:09/10/2017 8:0 6am Phosphorus Level 2.80 mg/dL 2.5-4.9 09/06/2017 6:06pm 09/06 6:36pm Total Protein 6.8 g/dL 6.4-8.2 09/10/2017 6:09/11/19 18 8:06am Globulin 3.7 g/dL 2.0-5.0 09/10/2017 6:09/10/2017 8: 06am Albumin/Globulin Ratio 0.8 A 1.1-2.5 09/10/2017 6:09/10/2017 8:06am Total Bilirubin 0.4 mg/dL 0.2-1.0 09/10/2017 6:2017 8:06am Direct Bilirubin 0.2 mg/dL 0.0-0.2 09/10/2017 6:09/10 8:06am Alkaline Phosphatase 117 U/L A 46-116 09/10/2017 6:27am 0 09/10/2017 8:06am Alanine Aminotransferase (ALT/SGPT) 55 U/L 12-7 8 09/10/2017 6:09/10/2017 8:06am Aspartate Amino Transf (AST/SGOT) 52 U/L A 15-37 09/10/2017 6:09/10/2017 8:06am Glomerular Filtration Rate Calc >60 mL/min >60 09/10/2017 6:09/10/2017 7:45am Estimated Creatinine Clearance Calc 98.96 09/10/2017 6:2709/10/2017 7:45am Cholesterol Level 99 mg/dL <200 09/07/2017 5:58am 0607/2017 6:56am Triglycerides Level 105 mg/dL <150 09/07/2017 5:58am 6:56am HDL Cholesterol 49 mg/dL 40-60 09/07/2017 5:58am 2017 6:56am LDL Cholesterol, Calculated 29.0 mg/dL 0-130 5:58am 09/07/2017 6:56am VLDL Cholesterol 21.0 mg/dL 0-40 09/07/2017 5:58am 09/07 6:56am Cholesterol/HDL Ratio 2.0 RATIO 09/07/2017 5:58am 09/07/2017 6:56am Cholesterol Ratio (LDL/HDL) 0.59 RATIO A 0.70-3.55 5:58am 09/07/2017 6:56am Magnesium Level 1.6 mg/dL A 1.8-2.4 09/10/2017 6:27am 2017 8:06am Troponin I 0.07 ng/mL CH 0.00-0.06 09/07/2017 5:58am 8 6:56am CRITICAL RESULT VERIFIED BY REPEAT ANALYSIS AND/OR DILUTION CALLED TO AND REPEATED BACK BY:RENATO DRAKE RN [], LOCATION:[facility] [], 09/07/17, 0652, [facility] Clostridium Difficile Toxin A & B NEGATIVE NEGATI VE 09/09/2017 8:19am 09/09/2017 9:17am Digoxin Level 1.8 ng/mL 0.90-2.0 09/10/2017 6:28am 018 7:56am Procedures No procedure information available. Encounters Encounter Location Arrival/Admit Date Discharge/Depart Date Attending Provider Discharged Inpatient [facility] 09/06/17 1:10pm 09/10/17 5:40pm SRIDHAR LARSON DO Departed Emergency Room [facility] 09/06/17 10: 25am 09/06/17 1:10pm GARCIA MARKHAM MD Departed Clinic [facility]. 08/28/17 3:04pm 8 11:59pm SRIDHAR LARSON DO Departed [facility] 08/20/17 8:22am 8 11:59pm SRIDHAR LARSON DO Departed [facility]. 08/03/17 2:18pm 8 11:59pm SRIDHAR LARSON DO Departed [facility] 07/30/17 2:47pm 8 11:59pm SRIDHAR LARSON DO Departed [facility]. 07/23/17 8:21am 8 11:59pm MARVEL BROWN MD Departed [facility]. 05/21/17 7:41am 8 11:59pm SRIDHAR LARSON DO
--- OUTSIDE RECORDS SUMMARY | 2019-09-03 18:55 | XMS REPORT | Continuity of Care Document ---
Author Organization Unknown Address [address] [place] [address] Phone Unavailable Care Team Providers Care Citrus Fruit Packer Name Role Phone MARSHA SRIDHAR PCP Insurance Providers Guarantor Valente Limon Jr Address [address] [place] [phone] Payer Self Pay Subscriber's Name Valente Limon Jr Advance Directives Directive Response Recorded Date/Time Resuscitation Status Full Code 04/24/17 2:10pm Problems Medical Problem Onset Date Status Atrial fibrillation 01/17/2012 Acute Atrial fibrillation with RVR Unknown Acute Bradycardia 01/17/2012 Acute Gastroenteritis Unknown Acute Hypokalemia Unknown 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 Medications Current Home [...] - behavior issues; depress ion; schizoaffective disorder 04/24/2017 3:16pm Not Applicable Not Applicable Hx Eating Disorder No 04/24/2017 3:16pm Not Applicable No t Applicable Hx Substance Use Disorder No 04/24/2017 3:16pm Not Applic able Not Applicable Hx Bipolar Disorder No 04/24/2017 3:16pm Not Applicable N ot Applicable Hx Depression Yes 04/24/2017 3:16pm Not Applicable Not Efrain licable Hx Anxiety Yes 04/24/2017 3:16pm Not Applicable Not Appl icable Hx Behavior Problems Yes 04/24/2017 3:16pm Not Applicable Not Applicable Hx Psychiatric Treatment No 04/24/2017 3:16pm Not Applica ble Not Applicable Hx Substance Use Treatment No 04/24/2017 3:16pm Not Appli cable Not Applicable Hx Community Resource Use Y - lives at [facility] 3:16pm Not Applicable Not Applicable Hx Alcohol Use No 04/24/2017 3:16pm Not Applicable Not Ap plicable Hx Substance Use No 04/24/2017 3:16pm Not Applicable Not Applicable Hx Physical Abuse No 04/24/2017 3:16pm Not Applicable Not Applicable Hx Suicide Attempt No 04/24/2017 3:16pm Not Applicable No t Applicable Hx Sleep Difficulties No 04/24/2017 3:16pm Not Applicable Not Applicable Hospital Discharge Instructions No hospital discharge instruction information available. Plan of Care Discharge Date 05/21/17 11:59pm Prescriptions See Medication Section Functional Status No functional status information available. Allergies, Adverse Reactions, Alerts No known allergies. Immunizations Query Response on File Recorded Date/Time Hx Influenza Vaccination Y - fall 2017 04/24/17 3:16pm Hx Pneumococcal Vaccination Y - x2 04/24/17 3:1 6pm Hx Tetanus, Diphtheria Vaccination No 04/24 3:16pm Hx Diphtheria, Pertussis, Tetanus Vaccination Up To Date 04/24/17 3:16pm Hx Measles, Mumps, Rubella Vaccination Up To Date 0 04/24/17 3:16pm Hx Varicella Vaccination Up To Date 04/24/17 3:16pm Hx Hepatitis A Vaccination No 04/24/17 3:16 pm Hx Hepatitis B Vaccination Up To Date 04/24/17 3:16 pm Hx Meningococcal Vaccination No 04/24/17 3: 16pm Hx Rabies Vaccination No 04/24/17 3:16pm Vital Signs No vital sign information available. Results Laboratory Results Test Name Result Units Flags Reference Collection Date/Time Result Date/Time Comments Parathyroid Hormone (Intact) 169.00 pg/mL A 15.00-65.00 02/09/2017 7:46am 02/09/2017 4:09pm Influenza Type A Antigen NEGATIVE NEGATIVE 03/23 2:43pm 03/23/2017 3:05pm Influenza Type B Antigen NEGATIVE NEGATIVE 03/23 2:43pm 03/23/2017 3:05pm Magnesium Level 2.1 mg/dL 1.8-2.4 04/24/2017 8:30am 2017 9:01am Lipase 77 U/L 73-393 04/24/2017 8:30am 04/24/2017 9:0 1am Troponin I < 0.02 ng/mL 0.00-0.06 04/24/2017 8:30am 8 9:01am Lactic Acid Level 2.5 mmol/L A 0.4-2.0 04/24/2017 8:31am 04/06 9:01am White Blood Count 7.2 x10^3/uL 4.5-13.5 04/27/2017 6:42am 7:29am Red Blood Count 3.88 x10^6/uL A 4.60-6.20 04/27/2017 6:42am 7:29am Hemoglobin 12.5 g/dl A 13.5-18.0 04/27/2017 6:42am 8 7:29am Hematocrit 38.6 % A 40.0-50.0 04/27/2017 6:42am 8 7:29am Mean Corpuscular Volume 100 fL A 82-96 04/27/2017 6:42a m 04/27/2017 7:29am Mean Corpuscular Hemoglobin 32.2 pg 28.0-33.0 6:42am 04/27/2017 7:29am Mean Corpuscular Hemoglobin Concent 32.4 g/dL 32.0 -36.0 04/27/2017 6:42am 04/27/2017 7:29am RDW Coefficient of Variation 13.7 % 11.5-14.5 0 04/27/2017 6:42am 04/27/2017 7:29am RDW Standard Deviation 48.6 fL A 35.1-43.9 04/27/2017 6:42 am 04/27/2017 7:29am Platelet Count 189 x10^3/uL 150-400 04/27/2017 6:42am 2017 7:29am Mean Platelet Volume 9.0 fL 7.0-11.0 04/27/2017 6:42am 04/27/2017 7:29am Neutrophils (%) (Auto) 69.3 % 40.0-79.0 04/27/2017 6:42 am 04/27/2017 7:29am Lymphocytes (%) (Auto) 18.2 % 10.0-50.0 04/27/2017 6:42 am 04/27/2017 7:29am Monocytes (%) (Auto) 9.4 % 3.0-13.0 04/27/2017 6:42am 04/27/2017 7:29am Eosinophils (%) (Auto) 2.8 % 1.0-3.0 04/27/2017 6:42am 04/27/2017 7:29am Basophils (%) (Auto) 0.3 % 0.0-2.0 04/27/2017 6:42am 0 04/27/2017 7:29am Neutrophils # (Auto) 5.0 x10^3 1.5-6.6 04/27/2017 6:42am 0 04/27/2017 7:29am Lymphocytes # (Auto) 1.3 x10/uL A 1.5-3.5 04/27/2017 6:42am 0 04/27/2017 7:29am Monocytes # (Auto) 0.7 x10^3/uL 0.0-1.0 04/27/2017 6:42am 7:29am Eosinophils # (Auto) 0.2 x10^3/uL 0.0-0.7 04/27/2017 6:42am 04/27/2017 7:29am Basophils # (Auto) 0.0 x10^3/uL 0.0-0.1 04/27/2017 6:42am 7:29am Urine Color YELLOW YELLOW 04/24/2017 11:04am 8 11:11am Urine Appearance Slightly CLEAR 04/24/2017 11:04am 11:11am Urine Specific [place] >= 1.030 A 1.005-1.025 04/24 11:04am 04/24/2017 11:11am Urine pH 5.5 5.0-7.0 04/24/2017 11:04am 04/24/2017 1 1:11am Urine Glucose Negative NEGATIVE 04/24/2017 11:04am 04/24 11:11am Urine Bilirubin Moderate NEGATIVE 04/24/2017 11:04am 11:11am Urine Ketones Trace NEGATIVE 04/24/2017 11:04am 2017 11:11am Urine Protein Confirmation 1+ NEGATIVE 11:04am 04/24/2017 11:11am Urine RBC (Auto) Trace-intact A NEGATIVE 04/24/2017 11:04am 04/24/2017 11:11am Urine Urobilinogen 2.0 mg/dL A 0.2-1.0 04/24/2017 11:04am 11:11am Urine Nitrate Negative NEGATIVE 04/24/2017 11:04am 04/24 11:11am Urine Leukocyte Esterase Negative NEGATIVE 04/24 11:04am 04/24/2017 11:11am Urine RBC 4-5 /HPF A 0-3 04/24/2017 11:04am 04/24/2017 11:40am Urine WBC 4-5 /HPF 0-3 04/24/2017 11:04am 04/24/2017 11:40am Urine Epithelial Cells NONE SEEN /LPF NEGATIVE 018 11:04am 04/24/2017 11:40am Urine Amorphous Sediment 2+ 04/24/2017 11:0 4am 04/24/2017 11:40am Urine Bacteria 2+ /HPF A NEGATIVE 04/24/2017 11:04am 04/24 11:40am Urine Hyaline Casts 0-3 NEGATIVE 04/24/2017 11:04am 04/24/2017 11:40am Urine Mucus MODERATE /HPF A NEGATIVE 04/24/2017 11:04am 018 11:40am Urine Yeast NONE NEGATIVE 04/24/2017 11:04am 04/24/19 18 11:40am Glucose Level 100 mg/dL 74-106 04/27/2017 6:43am 04/27/19 7:36am Blood Urea Nitrogen 11 mg/dL 7-18 04/27/2017 6:43am 7:36am Creatinine 0.9 mg/dL 0.6-1.3 04/27/2017 6:43am 04/27/2017 7:36am BUN/Creatinine Ratio 11.7 RATIO 04/27/2017 6:43am 0 04/27/2017 7:36am Calcium Level 8.3 mg/dL A 8.5-10.1 04/27/2017 6:43am 018 7:36am Sodium Level 142 mmol/l 136-145 04/27/2017 6:43am 8 7:36am Potassium Level 3.9 mmol/L 3.5-5.1 04/27/2017 6:43am 2017 7:36am Chloride Level 104 mmol/L 98-107 04/27/2017 6:43am 018 7:36am Carbon Dioxide Level 28.5 mmol/L 21.0-32.0 8 6:43am 04/27/2017 7:36am Albumin 2.8 g/dL A 3.4-5.0 04/27/2017 6:43am 04/27/2017 7:3 6am Phosphorus Level 3.30 mg/dL 2.5-4.9 04/24/2017 8:30am 04/24 11:24am Total Protein 6.3 g/dL A 6.4-8.2 04/27/2017 6:43am 04/27/19 18 7:36am Globulin 3.5 g/dL 2.0-5.0 04/27/2017 6:43am 04/27/2017 7: 36am Albumin/Globulin Ratio 0.8 A 1.1-2.5 04/27/2017 6:43am 04/27/2017 7:36am Total Bilirubin 0.5 mg/dL 0.2-1.0 04/27/2017 6:43am 2017 7:36am Direct Bilirubin 0.2 mg/dL 0.0-0.2 04/27/2017 6:43am 04/27 7:36am Alkaline Phosphatase 115 U/L 46-116 04/27/2017 6:43am 0 04/27/2017 7:36am Alanine Aminotransferase (ALT/SGPT) 15 U/L 12-7 8 04/27/2017 6:43am 04/27/2017 7:36am Aspartate Amino Transf (AST/SGOT) 16 U/L 15-37 04/27/2017 6:43am 04/27/2017 7:36am Glomerular Filtration Rate Calc >60 mL/min >60 04/27/2017 6:43am 04/27/2017 7:36am Estimated Creatinine Clearance Calc 123.23 04/27/2017 6:43am 04/27/2017 7:36am Hemoglobin A1c 5.9 % 4.5-6.2 04/24/2017 8:30am 018 11:33am Estimated Average Glucose (eAG) 122.63 mg/dL 04/24/2017 8:30am 04/24/2017 11:33am THE eAG IS CALCULATED AND PROVIDED RE COMMENDED BY THE [employer] USING THE FORMULA 28.7 X A1c - 46.7= eAG HD-Ebk-G-Type Natriuretic Peptide 1428 pg/mL A 0-125 04/24/2017 8:30am 04/24/2017 6:36pm Ionized Calcium 1.16 mmol/L A 1.18-1.30 04/24/2017 8:30am 04/07 3:22pm Testing performed at [facility], [id number] [place] [address]. Cholesterol Level 116 mg/dL <200 05/21/2017 7:46am 05/07 9:11am Triglycerides Level 72 mg/dL <150 05/21/2017 7:46am 9:11am HDL Cholesterol 71 mg/dL A 40-60 05/21/2017 7:46am 2017 9:11am LDL Cholesterol, Calculated 30.6 mg/dL 0-130 7:46am 05/21/2017 9:11am VLDL Cholesterol 14.4 mg/dL 0-40 05/21/2017 7:46am 05/21 9:11am Cholesterol/HDL Ratio 1.6 RATIO 05/21/2017 7:46am 05/21/2017 9:11am Cholesterol Ratio (LDL/HDL) 0.43 RATIO A 0.70-3.55 7:46am 05/21/2017 9:11am Thyroid Stimulating Hormone (TSH) 1.54 uIU/mL 0.358- 3.74 05/21/2017 7:46am 05/21/2017 4:35pm Vitamin D 25-Hydroxy 16.8 ng/mL A 30.0-59.9 05/21/2017 7:46am 05/21/2017 6:36pm Procedures No procedure information available. Encounters Encounter Location Arrival/Admit Date Discharge/Depart Date Attending Provider Departed Clinic [facility] 05/21/17 7:41am 8 11:59pm SRIDHAR LARSON DO Discharged Inpatient [facility] 04/24/17 10:35a m 04/27/17 1:40pm SRIDHAR LARSON DO Departed Emergency Room [facility] 04/24/17 7:4 0am 04/24/17 10:30am JOHNNY GANNON Departed Clinic [facility] 03/26/17 8:58am 7 11:59pm SRIDHAR LARSON DO Departed Clinic [facility] 03/23/17 2:29pm 7 11:59pm SRIDHAR LARSON DO Departed Clinic [facility] 02/09/17 7:41am 7 11:59pm SRIDHAR LARSON DO Departed Clinic [facility] 02/03/17 8:11am 7 11:59pm WADE TOVAR MD
--- OUTSIDE RECORDS SUMMARY | 2019-09-03 18:56 | XMS REPORT | Continuity of Care Document ---
Author Organization Unknown Address [address] [place] [address] Phone Unavailable Care Team Providers Care Professor Of Theatre Name Role Phone MARSHA SRIDHAR PCP Insurance Providers Guarantor Valente Limon Jr Address [address] [place] [phone] Payer Medicare Policy Number [id number] Subscriber's Name Valente Limon Jr Relationship Self / Same As Patient [facility]ayer [facility] Policy Number [id number] Subscriber's Name Valente Limon Jr Relationship Self [...] Community Resource Use Y - lives at [facility] 3:16pm Not Applicable Not Applicable Hx Alcohol [...] information available. Plan of Care Discharge Date 08/28/17 11:59pm Prescriptions See Medication Section Functional Status [...] Flags Reference Collection Date/Time Result Date/Time Comments Cholesterol Level 116 mg/dL <200 05/21/2017 7:46am [...] uIU/mL 0.358- 3.74 05/21/2017 7:46am 05/21/2017 4:35pm Glucose Level 85 mg/dL 74-106 07/23/2017 9:00am 07/24/19 18 11:11am Blood Urea Nitrogen 15 mg/dL 7-18 07/23/2017 9:00am 11:11am BUN/Creatinine Ratio 12.9 RATIO 07/23/2017 9:00am 0 07/23/2017 11:11am Calcium Level 9.4 mg/dL 8.5-10.1 07/23/2017 9:00am 018 11:11am Sodium Level 142 mmol/l 136-145 07/23/2017 9:00am 8 11:11am Potassium Level 3.9 mmol/L 3.5-5.1 07/23/2017 9:00am 2017 11:11am Chloride Level 103 mmol/L 98-107 07/23/2017 9:00am 018 11:11am Carbon Dioxide Level 28.6 mmol/L 21.0-32.0 8 9:00am 07/23/2017 11:11am Glomerular Filtration Rate Calc >60 mL/min >60 07/23/2017 9:00am 07/23/2017 11:11am Prostate Specific Antigen 0.8 ng/mL 0.0-4.0 07/05 9:00am 07/23/2017 4:44pm Digoxin Level 1.4 ng/mL 0.90-2.0 07/30/2017 3:00pm 018 3:34pm Creatinine 1.4 mg/dL A 0.6-1.3 08/03/2017 3:17pm 08/03/2017 3:50pm Vitamin D 25-Hydroxy 36.0 ng/mL 30.0-59.9 08/20/2017 9:00am 08/21/2017 4:42pm Urine Color YELLOW YELLOW 08/28/2017 3:42pm 08/28/2017 3:58pm Urine Appearance Clear CLEAR 08/28/2017 3:42pm 08/28 3:58pm Urine Specific [place] 1.015 1.005-1.025 08/28 3:42pm 08/28/2017 3:58pm Urine pH 6.5 5.0-7.0 08/28/2017 3:42pm 08/28/2017 3: 58pm Urine Glucose Negative NEGATIVE 08/28/2017 3:42pm 2017 3:58pm Urine Bilirubin Negative NEGATIVE 08/28/2017 3:42pm 08/05 3:58pm Urine Ketones Negative NEGATIVE 08/28/2017 3:42pm 2017 3:58pm Urine Protein Negative mg/dL NEGATIVE 08/28/2017 3:42pm 2017 3:58pm Urine RBC (Auto) Negative NEGATIVE 08/28/2017 3:42pm 3:58pm Urine Urobilinogen 0.2 mg/dL 0.2-1.0 08/28/2017 3:42pm 3:58pm Urine Nitrate Negative NEGATIVE 08/28/2017 3:42pm 2017 3:58pm Urine Leukocyte Esterase Negative NEGATIVE 08/28 3:42pm 08/28/2017 3:58pm Procedures No procedure information available. Encounters Encounter Location Arrival/Admit Date Discharge/Depart Date Attending Provider Departed [facility] 08/28/17 3:04pm 8 11:59pm [facility] 8:22[facility] 8 11:59[facility] 2:18pm 8 11:59pm SRIDHAR LARSON DO Departed [facility] 07/30/17 2:47pm 8 11:59pm SRIDHAR LARSON DO [facility] 07/23/17 8:21am 8 11:59pm MARVEL BROWN MD [facility] 05/21/17 7:41am 8 11:59pm SRIDHAR LARSON DO
--- OUTSIDE RECORDS SUMMARY | 2019-09-03 18:56 | XMS REPORT | Continuity of Care Document ---
Author Organization Unknown Address [address] [place] [id number] Phone Unavailable Care Team Providers Care Cement Car Dumper Name Role Phone MARSHA SRIDHAR PCP Insurance Providers Guarantor Valente Limon Jr Address [address] [place] [id number] Payer [employer] [facility] Policy Number [id number] Subscriber's Name Valente Limon Jr Relationship Self / Same As Patient Effective Date 16 Payer Medicare Policy Number [id number] Subscriber's Name Valente Limon Jr Relationship Self [...] information available. Plan of Care Discharge Date 03/23/17 11:59pm Prescriptions See Medication Section Functional Status No functional status information available. Allergies, Adverse Reactions, Alerts No known allergies. Immunizations No immunization information available. Vital Signs No vital sign information available. Results Laboratory Results Test Name Result Units Flags Reference Collection Date/Time Result Date/Time Comments Glucose Level 107 mg/dL A 74-106 02/03/2017 8:20am 02/04/20 17 8:42am Blood Urea Nitrogen 19 mg/dL A 7-18 02/03/2017 8:20am 8:42am Creatinine 1.5 mg/dL A 0.6-1.3 02/03/2017 8:20am 02/03/2017 8:42am BUN/Creatinine Ratio 13.1 RATIO 02/03/2017 8:20am 1 8:42am Calcium Level 9.5 mg/dL 8.5-10.1 02/03/2017 8:20am 017 8:42am Sodium Level 144 mmol/l 136-145 02/03/2017 8:20am 7 8:42am Potassium Level 3.6 mmol/L 3.5-5.1 02/03/2017 8:20am 2016 8:42am Chloride Level 104 mmol/L 98-107 02/03/2017 8:20am 017 8:42am Carbon Dioxide Level 28.4 mmol/L 21.0-32.0 7 8:20am 02/03/2017 8:42am Phosphorus Level 3.50 mg/dL 2.5-4.9 02/03/2017 8:20am 02/03 8:42am Glomerular Filtration Rate Calc 50.24 mL/min >60 02/03/2017 8:20am 02/03/2017 8:42am Magnesium Level 2.1 mg/dL 1.8-2.4 02/03/2017 8:20am 2016 8:42am Vitamin D 25-Hydroxy 15.0 ng/mL A 30.0-59.9 02/03/2017 8:20am 02/03/2017 6:14pm Parathyroid Hormone (Intact) 169.00 pg/mL A 15.00-65.00 02/09/2017 7:46am 02/09/2017 4:09pm Influenza Type A Antigen NEGATIVE NEGATIVE 03/23 2:43pm 03/23/2017 3:05pm Influenza Type B Antigen NEGATIVE NEGATIVE 03/23 2:43pm 03/23/2017 3:05pm Procedures No procedure information available. Encounters Encounter Location Arrival/Admit Date Discharge/Depart Date Attending Provider Departed [facility]. CTR. 03/23/17 2:29pm 7 11:59pm SRIDHAR LARSON DO Departed [facility]. 02/09/17 7:41am 7 11:59pm SRIDHAR LARSON DO Departed [facility]. CTR. 02/03/17 8:11am 7 11:59pm WADE TOVAR MD
--- OUTSIDE RECORDS SUMMARY | 2019-09-03 18:56 | XMS REPORT | Continuity of Care Document ---
Author Organization Unknown Address [address] [place] [address] Phone Unavailable Care Team Providers Care Business Analytics Faculty Member Name Role Phone MARSHA SRIDHAR PCP Insurance Providers Guarantor Valente Limon Jr Address [address] [place] [phone] Payer Medicare Policy Number [id number] Subscriber's Name Valente Limon Jr Relationship Self / Same As Patient [facility] Number [id number] Subscriber's Name Valente Limon Jr Relationship Self [...] Community Resource Use Y - lives at [facility] 3:16pm Not Applicable Not Applicable [...] information available. Plan of Care Discharge Date 07/30/17 11:59pm Prescriptions See Medication Section Functional Status [...] Flags Reference Collection Date/Time Result Date/Time Comments Magnesium Level 2.1 mg/dL 1.8-2.4 04/24/2017 8:30am [...] Slightly CLEAR 04/24/2017 11:04am 11:11am Urine Specific [place] >= 1.030 A 1.005-1.025 04/24 11:04am 04/24/2017 [...] NONE NEGATIVE 04/24/2017 11:04am 04/24/19 18 11:40am Albumin 2.8 g/dL A 3.4-5.0 04/27/2017 6:43am 04/27/2017 7:3 6am Phosphorus Level 3.30 mg/dL 2.5-4.9 04/24/2017 8:30am 04/24 11:24am Total Protein 6.3 g/dL A 6.4-8.2 04/27/2017 6:43am 04/27/19 7:36am Globulin 3.5 g/dL 2.0-5.0 04/27/2017 6:43am [...] 16 U/L 15-37 04/27/2017 6:43am 04/27/2017 7:36am Estimated Creatinine Clearance Calc 123.23 04/27/2017 6:43am 04/27/2017 7:36am Hemoglobin A1c 5.9 % 4.5-6.2 04/24/2017 8:30am 018 11:33am Estimated Average Glucose (eAG) 122.63 mg/dL 04/24/2017 8:30am 04/24/2017 11:33am THE eAG IS CALCULATED AND PROVIDED RE COMMENDED BY THE [employer] USING THE FORMULA 28.7 X A1c - 46.7= eAG AL-Hod-S-Type Natriuretic Peptide 1428 pg/mL A 0-125 04/24/2017 8:30am 04/24/2017 6:36pm Ionized Calcium 1.16 mmol/L A 1.18-1.30 04/24/2017 8:30am 04/07 3:22pm Testing performed at [facility], [id number] [facility], [place] [address]. Cholesterol Level 116 mg/dL <200 05/21/2017 7:46am [...] ng/mL A 30.0-59.9 05/21/2017 7:46am 05/21/2017 6:36pm Glucose Level 85 mg/dL 74-106 07/23/2017 9:00am 07/24/19 18 11:11am Blood Urea Nitrogen 15 mg/dL 7-18 07/23/2017 9:00am 11:11am Creatinine 1.2 mg/dL 0.6-1.3 07/23/2017 9:00am 07/23/2017 11:11am BUN/Creatinine Ratio 12.9 RATIO 07/23/2017 9:00am [...] 1.4 ng/mL 0.90-2.0 07/30/2017 3:00pm 018 3:34pm Procedures No procedure information available. Encounters Encounter Location Arrival/Admit Date Discharge/Depart Date Attending Provider Departed Clinic [facility] 07/30/17 2:47pm 8 11:59pm SRIDHAR LARSON DO Departed Clinic [facility] 07/23/17 8:21am 8 11:59pm MARVEL BROWN MD Departed Clinic [facility]. 05/21/17 7:41am 8 11:59pm SRIDHAR LARSON DO Discharged Inpatient [facility]. 04/24/17 10:35a m 04/27/17 1:40pm SRIDHAR LARSON DO Departed Emergency Room [facility]. 04/24/17 7:4 0am 04/24/17 10:30am JOHNNY GANNON
--- OUTSIDE RECORDS SUMMARY | 2019-09-03 18:56 | XMS REPORT | Continuity of Care Document ---
Author Organization Unknown Address [address] [place] [address] Phone Unavailable Care Team Providers Care Property Controller Name Role Phone MARSHA SRIDHAR PCP Insurance Providers Guarantor Valente Limon Jr Address [address] [place] [phone] Payer Medicare Policy Number [id number] Subscriber's Name Valente Limon Jr Relationship Self / Same As Patient [facility]ayer [facility] Policy Number [id number] Subscriber's Name Valente Limon Jr Relationship Self [...] Community Resource Use Y - lives at [facility] 06/2017 2:00pm Not Applicable Not [...] information available. Plan of Care Discharge Date 09/21/17 11:59pm Prescriptions See Medication Section Functional Status [...] Flags Reference Collection Date/Time Result Date/Time Comments Prostate Specific Antigen 0.8 ng/mL 0.0-4.0 07/05 9:00am 07/23/2017 4:44pm Vitamin D 25-Hydroxy 36.0 ng/mL 30.0-59.9 08/20/2017 9:00am 08/21/2017 4:42pm Urine Protein Negative mg/dL NEGATIVE 09/06/2017 6:27pm 2017 6:39pm Urine Random Sodium 83 mmol/L 40-220 09/06/2017 6:28pm 6:36pm Urine Creatinine 22.41 mg/dL 09/06/2017 6:28pm 09/06 6:36pm Urine Color RED YELLOW 09/08/2017 7:34pm 09/08/2017 9:35pm Urine Appearance Turbid CLEAR 09/08/2017 7:34pm 09/08 9:35pm Urine Specific [place] 1.015 1.005-1.025 09/08 7:34pm 09/08/2017 9:35pm Urine pH 6.5 5.0-7.0 09/08/2017 7:34pm 09/08/2017 9: 35pm Urine Glucose Negative NEGATIVE 09/08/2017 7:34pm 2017 9:35pm Urine Bilirubin Moderate NEGATIVE 09/08/2017 7:34pm 08/2017 9:35pm Urine Ketones 15 A NEGATIVE 09/08/2017 7:34pm 018 9:35pm Urine Protein Confirmation 3+ NEGATIVE 09/08/2017 7 :34pm 09/08/2017 9:35pm Urine RBC (Auto) Large A NEGATIVE 09/08/2017 7:34pm 0608/2017 9:35pm Urine Urobilinogen 1.0 mg/dL 0.2-1.0 09/08/2017 [...] 0.59 RATIO A 0.70-3.55 5:58am 09/07/2017 6:56am Troponin I 0.07 ng/mL CH 0.00-0.06 09/07/2017 5:58am 8 6:56am CRITICAL RESULT VERIFIED BY REPEAT ANALYSIS AND/OR DILUTION CALLED TO AND REPEATED BACK BY:RENATO DRAKE RN [], LOCATION:[facility] [], 09/07/17, 06, [facility] Clostridium Difficile Toxin A & B NEGATIVE NEGATI VE 09/09/2017 8:19am 09/09/2017 9:17am Digoxin Level 1.8 ng/mL 0.90-2.0 09/10/2017 6:28am 018 7:56am Stool Culture (LAB) CNCTY RESULT RECEIVE 09/09/2017 8:19am 09/12/2017 12:11pm PLEASE REFER TO HARD COPY FOR RESULTS. Specimen sent for testing to: [address] [address] Ova and Parasites (LAB) KDHE RESULT RECEIVED 09/09/2017 8:19am 09/17/2017 9:29am PLEASE REFER TO HARD COPY FOR RESULTS. Specimen sent for testing to: [facility] Field [address] [place] [address] Magnesium Level 2.0 mg/dL 1.8-2.4 09/18/2017 2:22pm 2017 2:47pm White Blood Count 9.4 x10^3/uL 4.5-13.5 09/21/2017 2:44pm 2:52pm Red Blood Count 4.34 x10^6/uL A 4.60-6.20 09/21/2017 2:44pm 2:52pm Hemoglobin 13.9 g/dl 13.5-18.0 09/21/2017 2:44pm 8 2:52pm Hematocrit 41.4 % 40.0-50.0 09/21/2017 2:44pm 8 2:52pm Mean Corpuscular Volume 95 fL 82-96 09/21/2017 2:44p m 09/21/2017 2:52pm Mean Corpuscular Hemoglobin 32.0 pg 28.0-33.0 2:44pm 09/21/2017 2:52pm Mean Corpuscular Hemoglobin Concent 33.6 g/dL 32.0 -36.0 09/21/2017 2:44pm 09/21/2017 2:52pm RDW Coefficient of Variation 15.1 % A 11.5-14.5 0 09/21/2017 2:44pm 09/21/2017 2:52pm RDW Standard Deviation 50.8 fL A 35.1-43.9 09/21/2017 2:44 pm 09/21/2017 2:52pm Platelet Count 357 x10^3/uL 150-400 09/21/2017 2:44pm 2017 2:52pm Mean Platelet Volume 8.3 fL 7.0-11.0 09/21/2017 2:44pm 09/21/2017 2:52pm Neutrophils (%) (Auto) 73.1 % 40.0-79.0 09/21/2017 2:44 pm 09/21/2017 2:52pm Lymphocytes (%) (Auto) 19.2 % 10.0-50.0 09/21/2017 2:44 pm 09/21/2017 2:52pm Monocytes (%) (Auto) 5.7 % 3.0-13.0 09/21/2017 2:44pm 09/21/2017 2:52pm Eosinophils (%) (Auto) 1.8 % 1.0-3.0 09/21/2017 2:44pm 09/21/2017 2:52pm Basophils (%) (Auto) 0.2 % 0.0-2.0 09/21/2017 2:44pm 0 09/21/2017 2:52pm Neutrophils # (Auto) 6.9 x10^3 A 1.5-6.6 09/21/2017 2:44pm 0 09/21/2017 2:52pm Lymphocytes # (Auto) 1.8 x10/uL 1.5-3.5 09/21/2017 2:44pm 0 09/21/2017 2:52pm Monocytes # (Auto) 0.5 x10^3/uL 0.0-1.0 09/21/2017 2:44pm 2:52pm Eosinophils # (Auto) 0.2 x10^3/uL 0.0-0.7 09/21/2017 2:44pm 09/21/2017 2:52pm Basophils # (Auto) 0.0 x10^3/uL 0.0-0.1 09/21/2017 2:44pm 2:52pm Glucose Level 129 mg/dL A 74-106 09/21/2017 2:44pm 09/22/19 3:17pm Blood Urea Nitrogen 28 mg/dL A 7-18 09/21/2017 2:44pm 3:17pm Creatinine 1.6 mg/dL A 0.6-1.3 09/21/2017 2:44pm 09/21/2017 3:17pm BUN/Creatinine Ratio 17.1 RATIO 09/21/2017 2:44pm 0 09/21/2017 3:17pm Calcium Level 9.6 mg/dL 8.5-10.1 09/21/2017 2:44pm 018 3:17pm Sodium Level 137 mmol/l 136-145 09/21/2017 2:44pm 8 3:17pm Potassium Level 3.5 mmol/L 3.5-5.1 09/21/2017 2:44pm 2017 3:17pm Chloride Level 95 mmol/L A 98-107 09/21/2017 2:44pm 018 3:17pm Carbon Dioxide Level 32.4 mmol/L A 21.0-32.0 8 2:44pm 09/21/2017 3:17pm Albumin 3.6 g/dL 3.4-5.0 09/21/2017 2:44pm 09/21/2017 3:1 7pm Total Protein 8.0 g/dL 6.4-8.2 09/21/2017 2:44pm 09/22/19 3:17pm Globulin 4.4 g/dL 2.0-5.0 09/21/2017 2:44pm 09/21/2017 3: 17pm Albumin/Globulin Ratio 0.8 A 1.1-2.5 09/21/2017 2:44pm 09/21/2017 3:17pm Total Bilirubin 0.4 mg/dL 0.2-1.0 09/21/2017 2:44pm 2017 3:17pm Direct Bilirubin 0.1 mg/dL 0.0-0.2 09/21/2017 2:44pm 09/21 3:17pm Alkaline Phosphatase 163 U/L A 46-116 09/21/2017 2:44pm 0 09/21/2017 3:17pm Alanine Aminotransferase (ALT/SGPT) 27 U/L 12-7 8 09/21/2017 2:44pm 09/21/2017 3:17pm Aspartate Amino Transf (AST/SGOT) 29 U/L 15-37 09/21/2017 2:44pm 09/21/2017 3:17pm Glomerular Filtration Rate Calc 46.48 mL/min >60 09/21/2017 2:44pm 09/21/2017 3:17pm Procedures No procedure information available. Encounters Encounter Location Arrival/Admit Date Discharge/Depart Date Attending Provider Departed Clinic [facility] 09/21/17 1:20pm 8 11:59pm SRIDHAR LARSON DO Departed Clinic [facility] 09/18/17 2:21pm 8 11:59pm SRIDHAR LARSON DO Departed Clinic [facility]. 09/17/17 11:05am 11:59pm SRIDHAR LARSON DO Discharged Inpatient [facility]. 09/06/17 1:10pm 09/10/17 5:40pm SRIDHAR LARSON DO Departed Emergency Room [facility] 09/06/17 10: 25am 09/06/17 1:10pm GARCIA MARKHAM MD Departed Clinic [facility]. 08/28/17 3:04pm 8 11:59pm SRIDHAR LARSON DO Departed Clinic [facility]. 08/20/17 8:22am 8 11:59pm RUBSRIDHAR DELGADO DO Departed [facility]. 08/03/17 2:18pm 8 11:59pm RUBSRIDHAR DELGADO DO Departed [facility]. 07/30/17 2:47pm 8 11:59pm RUBSRIDHAR DELGADO DO Departed [facility]. 07/23/17 8:21am 8 11:59pm MARVEL BROWN MD
--- OUTSIDE RECORDS SUMMARY | 2019-09-03 18:56 | XMS REPORT | Continuity of Care Document ---
Author Organization Unknown Address [address] [place] [address] Phone Unavailable Care Team Providers Care Teachers Aide Name Role Phone MARSHA SRIDHAR DO PCP Insurance Providers Guarantor Valente Limon Jr Address [address] [place] [phone] Payer [facility] Policy Number [id number] Subscriber's Name Valente Limon Jr Relationship Self / Same As Patient Effective Date 16 Payer Medicare Policy Number [id number] Subscriber's Name Valente Limon Jr Relationship Self [...] information available. Plan of Care Discharge Date 09/18/16 11:59pm Prescriptions See Medication Section Functional Status No functional status information available. Allergies, Adverse Reactions, Alerts No known allergies. Immunizations No immunization information available. Vital Signs No vital sign information available. Results Laboratory Results Test Name Result Units Flags Reference Collection Date/Time Result Date/Time Comments Cholesterol Level 111 mg/dL <200 05/22/2016 7:14am 05/07 7:48am Triglycerides Level 62 mg/dL <150 05/22/2016 7:14 7:48am HDL Cholesterol 68 mg/dL A 40-60 05/22/2016 7:14am 2016 7:48am LDL Cholesterol, Calculated 30.6 mg/dL 0-130 7:1405/22/2016 7:48am VLDL Cholesterol 12.4 mg/dL 0-40 05/22/2016 7:14am 05/22 7:48am Cholesterol/HDL Ratio 1.6 RATIO 05/22/2016 7:1405/22/2016 7:48am Cholesterol Ratio (LDL/HDL) 0.45 RATIO A 0.70-3.55 7:1405/22/2016 7:48am Prostate Specific Antigen 0.7 ng/mL 0.0-4.0 07/05 10:48am 07/15/2016 3:38pm Urine Color YELLOW YELLOW 07/31/2016 UNK 07/31/2016 10 :31am Urine Appearance Clear CLEAR 07/31/2016 UNK 08/01/19 17 10:31am Urine Specific [place] 1.020 1.005-1.025 07/31/2016 UN K 07/31/2016 10:31am Urine pH 5.5 5.0-7.0 07/31/2016 [facility] 07/31/2016 10:31 am Urine Glucose Negative NEGATIVE 07/31/2016 [facility] 7 10:31am Urine Bilirubin Negative NEGATIVE 07/31/2016 [facility] 017 10:31am Urine Ketones Negative NEGATIVE 07/31/2016 [facility] 7 10:31am Urine Protein Negative mg/dL NEGATIVE 07/31/2016 [facility] 7 10:31am Urine RBC (Auto) Negative NEGATIVE 07/31/2016 [facility] 2016 10:31am Urine Urobilinogen 0.2 mg/dL 0.2-1.0 07/31/2016 [facility] 2016 10:31am Urine Nitrate Negative NEGATIVE 07/31/2016 [facility] 7 10:31am Urine Leukocyte Esterase Negative NEGATIVE 07/31 [facility] 07/31/2016 10:31am White Blood Count 7.7 x10^3/uL 4.5-13.5 09/18/2016 [...] Neutrophils (%) (Auto) 70.8 % 40.0-79.0 09/18/2016 9: am 09/18/2016 10:46am Lymphocytes (%) (Auto) 20.3 % 10.0-50.0 09/18/2016 9:09/18/2016 10:46am Monocytes (%) (Auto) 7.2 % 3.0-13.0 [...] 9:09/18/2016 11:33am BUN/Creatinine Ratio 17.0 RATIO 09/18/2016 9:13 0 09/18/2016 11:33am Calcium Level 9.1 mg/dL [...] Alkaline Phosphatase 128 U/L A 46-116 09/18/2016 9:13am 0 09/18/2016 11:33am Alanine Aminotransferase (ALT/SGPT) 31 U/L 12-7 8 09/18/2016 9:09/18/2016 11:33am Aspartate Amino Transf (AST/SGOT) 20 U/L 15-37 09/18/2016 9:13am 09/18/2016 11:33am Glomerular Filtration Rate Calc >60 mL/min >60 09/18/2016 9:13am 09/18/2016 11:33am Procedures No procedure information available. Encounters Encounter Location Arrival/Admit Date Discharge/Depart Date Attending Provider Departed [facility]. 09/18/16 9:04am 7 11:59pm SRIDHAR LARSON DO Departed [facility]. 08/05/16 7:26am 7 11:59pm SADAF DARLING MD Departed [facility]. 07/31/16 9:14am 7 11:59pm SADAF DARLING MD Departed [facility]. 07/15/16 10:21am 11:59pm YADI MORRISON MD Departed [facility]. 05/22/16 7:10am 7 11:59pm SRIDHAR LARSON DO
--- OUTSIDE RECORDS SUMMARY | 2019-09-03 18:56 | XMS REPORT | Continuity of Care Document ---
Author Organization Unknown Address [address] [place] [address] Phone Unavailable Care Team Providers Care Marriage And Family Social Worker Name Role Phone SRIDHAR LARSON DO PCP Insurance Providers Payer Name Policy Number Subscriber Name Relationship Medicare [id number] Valente Limon Jr Self / Same A s Patient [facility] [id number] Valente Limon Jr Self / Same A [...] discharge instructions. Plan of Care Discharge Date 08/15/15 11:59pm Prescriptions See Medication Section Functional Status [...] 08/02/2015 10:09am Urine Appearance Clear CLEAR 08/02/2015 9:12am 08/01 10:09am Urine Specific [place] 1.020 1.005-1.025 08/01 9:12am 08/02/2015 10:09am Urine pH 5.5 5.0-7.0 08/02/2015 9:12am 08/02/2015 10 :09am Urine Glucose Negative NEGATIVE 08/02/2015 [...] Esterase Negative NEGATIVE 08/01 9:12am 08/02/2015 10:09am Procedures No known history of procedures. Encounters Encounter Location Arrival/Admit Date [facility] 10:48am 11:59pm SADAF DARLING MD [facility]. 08/02/15 9:04am 6 11:59pm [facility] 07/17/15 3:46pm 6 11:59pm SRIDHAR LARSON DO
--- OUTSIDE RECORDS SUMMARY | 2019-09-03 18:56 | XMS REPORT | Continuity of Care Document ---
Author Organization Unknown Address [address] [place] [address] Phone Unavailable Care Team Providers Care Freight Loading Supervisor Name Role Phone SRIDHAR LARSON DO PCP Insurance Providers Payer Name Policy Number Subscriber Name Relationship Medicare [id number] Valente Limon Jr Self / Same A s Patient [employer] [facility] [id number] Valente Limon Jr Self / Same A [...] discharge instructions. Plan of Care Discharge Date 01/11/16 11:59pm Prescriptions See Medication Section Functional Status No functional status results. Allergies, Adverse Reactions, Alerts No known allergies. Immunizations No immunization records. Vital Signs No known vital signs results. Results Laboratory Results Test Name Result Units Flags Reference Collection Date/Time Result Date/Time Comments Prostate Specific Antigen 3.3 ng/mL 0.0-4.0 10/2015 8:59am 10/11/2015 5:00pm Prostate Specific Antigen 2.2 ng/mL 0.0-4.0 09/2015 11:16am 12/11/2015 12:11pm Procedures No known history of procedures. Encounters Encounter Location Arrival/Admit Date Discharge/Depart Date Attending Provider Departed [facility]. [facility]. 01/11/16 2:34pm 6 11:59pm SRIDHAR LARSON DO Departed [facility]. [facility]. 12/11/15 10:55am 11:59pm YADI MORRISON MD Departed [facility]. 10/11/15 8:51am 6 11:59pm SRIDHAR LARSON DO
--- OUTSIDE RECORDS SUMMARY | 2019-09-03 18:56 | XMS REPORT | Continuity of Care Document ---
Author Organization Unknown Address [address] [place] [address] Phone Unavailable Care Team Providers Care Director Of Veterans Affairs Name Role Phone SRIDHAR LARSON DO PCP Insurance Providers Guarantor Valente Limon Jr Address [address] [place] [phone] Payer [facility] Policy Number [id number] Subscriber's Name Valente Limon Jr Relationship Self / Same As Patient Effective Date 16 Payer Medicare Policy Number [id number] Subscriber's Name Valente Limon Jr Relationship Self [...] information available. Plan of Care Discharge Date 10/13/16 11:59pm Prescriptions See Medication Section Functional Status No functional status information available. Allergies, Adverse Reactions, Alerts No known allergies. Immunizations No immunization information available. Vital Signs No vital sign information available. Results Laboratory Results Test Name Result Units Flags Reference Collection Date/Time Result Date/Time Comments Prostate Specific Antigen 0.7 ng/mL 0.0-4.0 07/05 10:48am 07/15/2016 3:38pm White Blood Count 7.7 x10^3/uL 4.5-13.5 09/18/2016 [...] Standard Deviation 48.3 fL A 35.1-43.9 09/18/2016 9:09/18/2016 10:46am Platelet Count 244 x10^3/uL 150-400 09/18/2016 [...] Filtration Rate Calc >60 mL/min >60 09/18/2016 9:09/18/2016 11:33am Urine Color YELLOW YELLOW 10/13/2016 9:10/13/2016 9:50am Urine Appearance Clear CLEAR 10/13/2016 9:10/13 9:50am Urine Specific [place] 1.020 1.005-1.025 10/13 9:10/13/2016 9:50am Urine pH [...] Leukocyte Esterase Negative NEGATIVE 10/13 9:10/13/2016 9:50am Procedures No procedure information available. Encounters Encounter Location Arrival/Admit Date [facility] 9:20am 7 11:59pm SADAF DARLING MD [facility]. [facility]. 09/18/16 9:04am 7 11:59pm [facility] 08/[facility]/16 7:26am 7 11:59pm SADAF DARLING MD Departed [facility]. [facility]. 07/31/16 9:14am 7 11:59pm SADAF DARLING MD Departed [facility]. [facility]. 07/15/16 10:21am 11:59pm YADI MORRISON MD
--- OUTSIDE RECORDS SUMMARY | 2019-09-03 18:56 | XMS REPORT | Continuity of Care Document ---
Author Organization Unknown Address [address] [place] [address] Phone Unavailable Care Team Providers Care Technical Marketing Consultant Name Role Phone SRIDHAR LARSON DO PCP Insurance Providers Payer Name Policy Number Subscriber Name Relationship Medicare [id number] Valente Limon Jr Self / Same A s Patient [employer] [facility] [id number] Valente Limon Jr Self / Same A [...] discharge instructions. Plan of Care Discharge Date 07/17/15 11:59pm Prescriptions See Medication Section Functional Status [...] ng/mL A 0.0-4.0 07/05 3:49pm 07/17/2015 4:38pm Procedures No known history of procedures. Encounters Encounter Location Arrival/Admit Date Discharge/Depart Date Attending Provider Departed Clinic [facility]. 07/17/15 3:46pm 6 11:59pm SRIDHAR LARSON DO
--- OUTSIDE RECORDS SUMMARY | 2019-09-03 18:56 | XMS REPORT | Continuity of Care Document ---
Author Organization Unknown Address [address] [place] [address] Phone Unavailable Care Team Providers Care Repairer Kiln Car Name Role Phone SRIDHAR LARSON DO PCP Insurance Providers Payer Name Policy Number Subscriber Name Relationship Medicare [id number] Valente Limon Jr Self / Same A s Patient [employer] [facility] [id number] Valente Limon Jr Self / Same A [...] discharge instructions. Plan of Care Discharge Date 03/08/15 11:59pm Prescriptions See Medication Section Functional Status No functional status results. Allergies, Adverse Reactions, Alerts No known allergies. Immunizations No immunization records. Vital Signs No known vital signs results. Results Laboratory Results Test Name Result Units Flags Reference Collection Date/Time Result Date/Time Comments Urine Color YELLOW YELLOW 11/30/2014 11: 5 11:48am Urine Appearance Turbid CLEAR 11/30/2014 11:2111/05 11:48am Urine Specific [place] >= 1.030 A 1.005-1.025 11/30 11:21am 11/30/2014 11:48am Urine pH 6.0 5.0-7.0 11/30/2014 11:21am 11/30/2014 1 1:48am Urine Glucose Negative NEGATIVE 11/30/2014 11:21am 11/30 11:48am Urine Bilirubin Negative NEGATIVE 11/30/2014 11:21am 11:48am Urine Ketones Negative NEGATIVE 11/30/2014 11:21am 11/30 11:48am Urine Protein Negative mg/dL NEGATIVE 11/30/2014 11:21am 11/30 11:48am Urine RBC (Auto) Negative NEGATIVE 11/30/2014 11:21am 11:48am Urine Urobilinogen 0.2 mg/dL 0.2-1.0 11/30/2014 11:21am 11:48am Urine Nitrate Negative NEGATIVE 11/30/2014 11:21am 11/30 11:48am Urine Leukocyte Esterase Negative NEGATIVE 11/30 11:21am 11/30/2014 11:48am Prostate Specific Antigen 7.9 ng/mL A 0.0-4.0 11/05 11:21am 11/30/2014 5:09pm Prostate Specific Antigen 8.2 ng/mL A 0.0-4.0 02/04 11:55am 02/14/2015 12:38pm Procedures No known history of procedures. Encounters Encounter Location Arrival/Admit Date [facility] 1:07pm 5 11:59pm [facility] 02/14/15 11:34am 11:59pm [facility] 11/30/14 11:17am 11:59pm SRIDHAR LARSON DO
--- OUTSIDE RECORDS SUMMARY | 2019-09-03 18:56 | XMS REPORT | Continuity of Care Document ---
Author Organization Unknown Address [address] [place] [id number] Phone Unavailable Care Team Providers Care Shactor Name Role Phone SRIDHAR LARSON DO PCP Insurance Providers Guarantor Valente Limon Jr Address [address] [place] [phone] Payer [facility] Policy Number [id number] Subscriber's Name Valente Limon Jr Relationship Self / Same As Patient Effective Date 16 Payer Medicare Policy Number [id number] Subscriber's Name Valente Limon Jr Relationship Self [...] information available. Plan of Care Discharge Date 02/03/17 11:59pm Prescriptions See Medication Section Functional Status No functional status information available. Allergies, Adverse Reactions, Alerts No known allergies. Immunizations No immunization information available. Vital Signs No vital sign information available. Results Laboratory Results Test Name Result Units Flags Reference Collection Date/Time Result Date/Time Comments Urine Color YELLOW YELLOW 10/13/2016 9:10/13/2016 9:50am Urine Appearance Clear CLEAR 10/13/2016 9:10/13 9:50am Urine Specific [place] 1.020 1.005-1.025 10/13 9:10/13/2016 9:50am Urine pH [...] Prostate Specific Antigen 0.8 ng/mL 0.0-4.0 10/04 9:27am 10/14/2016 3:53pm Glucose Level 107 mg/dL A 74-106 02/03/2017 [...] ng/mL A 30.0-59.9 02/03/2017 8:20am 02/03/2017 6:14pm Procedures No procedure information available. Encounters Encounter Location Arrival/Admit Date Discharge/Depart Date Attending Provider Registered Clinic [facility]. 02/03/17 8:11am WADE TOVAR MD Departed Clinic [facility]. CTR. 10/15/16 7:42am 7 11:59pm [facility] 10/13/16 9:20am 7 11:59pm SADAF DARLING MD
--- OUTSIDE RECORDS SUMMARY | 2019-09-03 18:57 | XMS REPORT | Continuity of Care Document ---
Author Organization Unknown Address [address] [place] [address] Phone Unavailable Care Team Providers Care Biostatistics Director Name Role Phone SRIDHAR LARSON DO PCP Insurance Providers Guarantor Valente Limon Jr Address [address] [place] [phone] Payer [facility] Policy Number [id number] Subscriber's Name Valente Limon Jr Relationship Self / Same As Patient Effective Date 16 Payer Medicare Policy Number [id number] Subscriber's Name Valente Limon Jr Relationship Self [...] social history information available. Hospital Discharge Instructions Current inpatient/outpatient. Discharge instructions are currently unavailable. Plan of Care Current inpatient/outpatient. The plan of care is currently unavailable. Functional Status No functional status information available. Allergies, Adverse Reactions, Alerts No known allergies. Immunizations No immunization information available. Vital Signs No vital sign information available. Results Laboratory Results Test Name Result Units Flags Reference Collection Date/Time Result Date/Time Comments Vitamin D 25-Hydroxy 15.0 ng/mL A 30.0-59.9 02/03/2017 8:20am 02/03/2017 6:14pm Parathyroid Hormone (Intact) 169.00 pg/mL A 15.00-65.00 02/09/2017 7:46am 02/09/2017 4:09pm Influenza Type A Antigen NEGATIVE NEGATIVE 03/23 2:43pm 03/23/2017 3:05pm Influenza Type B Antigen NEGATIVE NEGATIVE 03/23 2:43pm 03/23/2017 3:05pm White Blood Count 11.4 x10^3/uL 4.5-13.5 04/24/2017 8:30am 8:43am Red Blood Count 4.45 x10^6/uL A 4.60-6.20 04/24/2017 8:30am 8:43am Hemoglobin 14.3 g/dl 13.5-18.0 04/24/2017 8:30am 8 8:43am Hematocrit 44.5 % 40.0-50.0 04/24/2017 8:30am 8 8:43am Mean Corpuscular Volume 100 fL A 82-96 04/24/2017 8:30a m 04/24/2017 8:43am Mean Corpuscular Hemoglobin 32.1 pg 28.0-33.0 8:30am 04/24/2017 8:43am Mean Corpuscular Hemoglobin Concent 32.1 g/dL 32.0 -36.0 04/24/2017 8:30am 04/24/2017 8:43am RDW Coefficient of Variation 14.2 % 11.5-14.5 0 04/24/2017 8:30am 04/24/2017 8:43am RDW Standard Deviation 51.1 fL A 35.1-43.9 04/24/2017 8:30 am 04/24/2017 8:43am Platelet Count 229 x10^3/uL 150-400 04/24/2017 8:30am 2017 8:43am Mean Platelet Volume 9.7 fL 7.0-11.0 04/24/2017 8:30am 04/24/2017 8:43am Neutrophils (%) (Auto) 86.2 % A 40.0-79.0 04/24/2017 8:30 am 04/24/2017 8:43am Lymphocytes (%) (Auto) 7.0 % A 10.0-50.0 04/24/2017 8:30 am 04/24/2017 8:43am Monocytes (%) (Auto) 6.6 % 3.0-13.0 04/24/2017 8:30am 04/24/2017 8:43am Eosinophils (%) (Auto) 0.1 % A 1.0-3.0 04/24/2017 8:30am 04/24/2017 8:43am Basophils (%) (Auto) 0.1 % 0.0-2.0 04/24/2017 8:30am 0 04/24/2017 8:43am Neutrophils # (Auto) 9.9 x10^3 A 1.5-6.6 04/24/2017 8:30am 0 04/24/2017 8:43am Lymphocytes # (Auto) 0.8 x10/uL A 1.5-3.5 04/24/2017 8:30am 0 04/24/2017 8:43am Monocytes # (Auto) 0.8 x10^3/uL 0.0-1.0 04/24/2017 8:30am 8:43am Eosinophils # (Auto) 0.0 x10^3/uL 0.0-0.7 04/24/2017 8:30am 04/24/2017 8:43am Basophils # (Auto) 0.0 x10^3/uL 0.0-0.1 04/24/2017 8:30am 8:43am Glucose Level 124 mg/dL A 74-106 04/24/2017 8:30am 04/24/19 9:01am Blood Urea Nitrogen 19 mg/dL A 7-18 04/24/2017 8:30am 9:01am Creatinine 1.6 mg/dL A 0.6-1.3 04/24/2017 8:30am 04/24/2017 9:01am BUN/Creatinine Ratio 11.6 RATIO 04/24/2017 8:30am 0 04/24/2017 9:01am Calcium Level 9.3 mg/dL 8.5-10.1 04/24/2017 8:30am 018 9:01am Sodium Level 144 mmol/l 136-145 04/24/2017 8:30am 8 9:01am Potassium Level 2.6 mmol/L CL 3.5-5.1 04/24/2017 8:30am 2017 9:01am CRITICAL RESULT VERIFIED BY REPEAT ANALYSIS AND/OR DILUTION CALLED TO AND REPEATED BACK BY: RUTH, LOCATION: , 04/24/17, 0900, DJENSEN Chloride Level 102 mmol/L 98-107 04/24/2017 8:30am 018 9:01am Carbon Dioxide Level 32.9 mmol/L A 21.0-32.0 8 8:30am 04/24/2017 9:01am Albumin 3.8 g/dL 3.4-5.0 04/24/2017 8:30am 04/24/2017 9:0 1am Total Protein 7.9 g/dL 6.4-8.2 04/24/2017 8:30am 04/24/19 18 9:01am Globulin 4.1 g/dL 2.0-5.0 04/24/2017 8:30am 04/24/2017 9: 01am Albumin/Globulin Ratio 0.9 A 1.1-2.5 04/24/2017 8:30am 04/24/2017 9:01am Total Bilirubin 0.9 mg/dL 0.2-1.0 04/24/2017 8:30am 2017 9:01am Direct Bilirubin 0.3 mg/dL A 0.0-0.2 04/24/2017 8:30am 04/24 9:01am Alkaline Phosphatase 148 U/L A 46-116 04/24/2017 8:30am 0 04/24/2017 9:01am Alanine Aminotransferase (ALT/SGPT) 20 U/L 12-7 8 04/24/2017 8:30am 04/24/2017 9:01am Aspartate Amino Transf (AST/SGOT) 15 U/L 15-37 04/24/2017 8:30am 04/24/2017 9:01am Glomerular Filtration Rate Calc 46.63 mL/min >60 04/24/2017 8:30am 04/24/2017 9:01am Estimated Creatinine Clearance Calc 69.49 04/24/2017 8:30am 04/24/2017 9:01am Adjusted body weight used for calculatio n. Magnesium Level 2.1 mg/dL 1.8-2.4 04/24/2017 8:30am 2017 9:01am Lipase 77 U/L 73-393 04/24/2017 8:30am 04/24/2017 9:0 1am Troponin I < 0.02 ng/mL 0.00-0.06 04/24/2017 8:30am 8 9:01am Lactic Acid Level 2.5 mmol/L A 0.4-2.0 04/24/2017 8:31am 04/06 9:01am Urine Color YELLOW YELLOW 04/24/2017 11:04 8 11:11am Urine Appearance Slightly CLEAR 04/24/2017 11:04am 11:11am Urine Specific [place] >= 1.030 A 1.005-1.025 04/24 11:04am 04/24/2017 [...] Esterase Negative NEGATIVE 04/24 11:04am 04/24/2017 11:11am Phosphorus Level 3.30 mg/dL 2.5-4.9 04/24/2017 8:30am 04/24 11:24am Procedures No procedure information available. Encounters Encounter Location Arrival/Admit Date Discharge/Depart Date Attending Provider Admitted Inpatient [facility] 04/24/17 10:35am SRIDHAR LARSON DO Departed Emergency Room [facility] 04/24/17 7:4 0am 04/24/17 10:30am JOHNNY GANNON Departed Clinic [facility] 03/26/17 8:58am 7 11:59pm SRIDHAR LARSON DO Departed Clinic [facility] 03/23/17 2:29pm 7 11:59pm SRIDHAR LARSON DO Departed Clinic [facility] 02/09/17 7:41am 7 11:59pm SRIDHAR LARSON DO Departed Clinic [facility] 02/03/17 8:11am 7 11:59pm WADE TOVAR MD
--- OUTSIDE RECORDS SUMMARY | 2019-09-03 18:57 | XMS REPORT | Continuity of Care Document ---
Author Organization Unknown Address [address] [place] [address] Phone Unavailable Care Team Providers Care Gameplay Programmer Name Role Phone MARSHA SRIDHAR PCP Insurance Providers Guarantor Marilyn Limon Jr Address [address] [place] [phone] Payer Self Pay Subscriber's Name Marilyn Limon Jr Advance Directives Directive Response Recorded [...] information available. Plan of Care Discharge Date 09/28/17 11:59pm Prescriptions See Medication Section Functional Status [...] CLEAR 09/08/2017 7:34pm 09/08 9:35pm Urine Specific [place] 1.015 1.005-1.025 09/08 7:34pm 09/08/2017 9:35pm Urine [...] Cholesterol Level 99 mg/dL <200 09/07/2017 5:58am 060 07/2017 6:56am Triglycerides Level 105 mg/dL <150 [...] AND REPEATED BACK BY:RENATO DRAKE RN [], LOCATION:[facility] [], 09/07/17, 0652, MMARRS Clostridium Difficile Toxin A & B NEGATIVE NEGATI VE 09/09/2017 8:19am 09/09/2017 9:17am Digoxin Level 1.8 ng/mL 0.90-2.0 09/10/2017 6:28am 018 7:56am Stool Culture (LAB) CNCTY RESULT RECEIVE 09/09/2017 8:19am 09/12/2017 12:11pm PLEASE REFER TO HARD COPY FOR RESULTS. Specimen sent for testing to: [address] [address] Ova and Parasites (LAB) KDHE RESULT RECEIVED 09/09/2017 8:19am 09/17/2017 9:29am PLEASE REFER TO HARD COPY FOR RESULTS. Specimen sent for testing to: [facility] [address] [place] [address] Magnesium Level 2.0 mg/dL 1.8-2.4 09/18/2017 2:22pm [...] (Auto) 0.0 x10^3/uL 0.0-0.1 09/21/2017 2:44pm 2:52pm Albumin 3.6 g/dL 3.4-5.0 09/21/2017 2:44pm 09/21/2017 [...] 29 U/L 15-37 09/21/2017 2:44pm 09/21/2017 3:17pm Glucose Level 101 mg/dL 74-106 09/28/2017 3:07pm 09/29/19 18 3:38pm Blood Urea Nitrogen 21 mg/dL A 7-18 09/28/2017 3:07pm 3:38pm Creatinine 1.4 mg/dL A 0.6-1.3 09/28/2017 3:07pm 09/28/2017 3:38pm BUN/Creatinine Ratio 15.3 RATIO 09/28/2017 3:07pm 0 09/28/2017 3:38pm Calcium Level 9.3 mg/dL 8.5-10.1 09/28/2017 3:07pm 018 3:38pm Sodium Level 139 mmol/l 136-145 09/28/2017 3:07pm 8 3:38pm Potassium Level 3.6 mmol/L 3.5-5.1 09/28/2017 3:07pm 2017 3:38pm Chloride Level 97 mmol/L A 98-107 09/28/2017 3:07pm 018 3:38pm Carbon Dioxide Level 33.3 mmol/L A 21.0-32.0 8 3:07pm 09/28/2017 3:38pm Glomerular Filtration Rate Calc 54.23 mL/min >60 09/28/2017 3:07pm 09/28/2017 3:38pm Procedures No procedure information available. Encounters Encounter Location Arrival/Admit Date Discharge/Depart Date Attending Provider Departed [facility] 09/28/17 12:44pm 11:59pm RUBSRIDHAR DELGADO DO Departed [facility] 09/21/17 1:20pm 8 11:59pm RUBSRIDHAR DELGADO DO Departed [facility]. 09/18/17 2:21pm 8 11:59pm SRIDHAR LARSON DO Departed Clinic [facility] 09/17/17 11:05am 11:59pm RUBSRIDHAR DELGADO DO Discharged Inpatient [facility] 09/06/17 1:10pm 09/10/17 5:40pm SRIDHAR LARSON DO Departed Emergency Room [facility]. 09/06/17 10: 25am 09/06/17 1:10pm GARCIA MARKHAM MD Departed [facility]. 08/28/17 3:04pm 8 11:59pm SRIDHAR LARSON DO Departed [facility] 08/20/17 8:22am 8 11:59pm SRIDHAR LARSON DO Departed [facility]. 08/03/17 2:18pm 8 11:59pm SRIDHAR LARSON DO Departed [facility]. 07/30/17 2:47pm 8 11:59pm SRIDHAR LARSON DO Departed [facility] 07/23/17 8:21am 8 11:59pm MARVEL BROWN MD
--- OUTSIDE RECORDS SUMMARY | 2019-09-03 18:57 | XMS REPORT | Continuity of Care Document ---
Author Organization Unknown Address [address] [place] [phone] Phone Unavailable Care Team Providers Care Human Intelligence Name Role Phone MARSHA SRIDHAR PCP Insurance Providers Guarantor Valente Limon Jr Address [address] [place] [phone] Payer Medicare Policy Number [id number] Subscriber's Name Valente Limon Jr Relationship Self / Same As Patient [facility]ayer [facility] Policy Number [id number] Subscriber's Name Valente Limon Jr Relationship Self [...] Y - lives at [facility] 3:16pm Not Applicable Not Applicable Hx [...] information available. Plan of Care Discharge Date 08/03/17 11:59pm Prescriptions See Medication Section Functional Status [...] Slightly CLEAR 04/24/2017 11:04am 11:11am Urine Specific [place] >= 1.030 A 1.005-1.025 04/24 11:04am 04/24/2017 [...] CALCULATED AND PROVIDED RE COMMENDED BY THE [employer] USING THE FORMULA 28.7 X A1c - 46.7= eAG QQ-Ahq-K-Type Natriuretic Peptide 1428 pg/mL A 0-125 04/24/2017 8:30am 04/24/2017 6:36pm Ionized Calcium 1.16 mmol/L A 1.18-1.30 04/24/2017 8:3004/07 3:22pm Testing performed at [facility], [address] [facility] [place] [address]. Cholesterol Level 116 mg/dL <200 05/21/2017 7:4605/07 9:11am Triglycerides Level 72 mg/dL <150 05/21/2017 [...] D 25-Hydroxy 16.8 ng/mL A 30.0-59.9 05/21/2017 7:4605/21/2017 6:36pm Glucose Level 85 mg/dL 74-106 07/23/2017 [...] mg/dL A 0.6-1.3 08/03/2017 3:17pm 08/03/2017 3:50pm Procedures No procedure information available. Encounters Encounter Location Arrival/Admit Date Discharge/Depart Date Attending Provider Departed Clinic [facility] 08/03/17 2:18pm 8 11:59pm SRIDHAR LARSON DO Departed Clinic [facility] 07/30/17 2:47pm 8 11:59pm SRIDHAR LARSON DO Departed Clinic [facility] 07/23/17 8:21am 8 11:59pm MARVEL BROWN MD Departed Clinic [facility] 05/21/17 7:41am 8 11:59pm SRIDHAR LARSON DO Discharged Inpatient [facility] 04/24/17 10:35a m 04/27/17 1:40pm SRIDHAR LARSON DO Departed Emergency Room [facility] 04/24/17 7:4 0am 04/24/17 10:30am JOHNNY GANNON
--- OUTSIDE RECORDS SUMMARY | 2019-09-03 18:57 | XMS REPORT | Continuity of Care Document ---
Author Organization Unknown Address [address] [place] [address] Phone Unavailable Care Team Providers Care Budget And Policy Analyst Name Role Phone MARSHA SRIDHAR PCP Insurance Providers Guarantor Valente Limon Jr Address [address] [place] [phone] Payer Medicare Policy Number [id number] Subscriber's Name Valente Limon Jr Relationship Self / Same As Patient Payer [facility] Policy Number [id number] Subscriber's Name Valente Limon Jr Relationship Self [...] Community Resource Use Y - lives at [facility] 06/2017 2:00pm Not Applicable Not Applicable [...] information available. Plan of Care Discharge Date 09/17/17 11:59pm Prescriptions See Medication Section Functional Status [...] Response Date/Time Height 5 ft 10 in 09/17/2017 6:20pm Weight 327 lb 09/17/2017 6:20pm Body Mass Index 46.9 kg/m^2 09/17/2017 6:20pm Results Laboratory Results Test Name Result Units [...] Creatinine 22.41 mg/dL 09/06/2017 6:28pm 09/06 6:36pm White Blood Count 8.3 x10^3/uL 4.5-13.5 09/10/2017 6:27am 7:44am Red Blood Count 4.05 x10^6/uL A [...] Neutrophils (%) (Auto) 69.2 % 40.0-79.0 09/10/2017 6: am 09/10/2017 7:44am Lymphocytes (%) (Auto) 21.7 % 10.0-50.0 09/10/2017 6: am 09/10/2017 7:44am Monocytes (%) (Auto) 6.6 % 3.0-13.0 09/10/2017 6:09/10/2017 7:44am Eosinophils (%) (Auto) 2.3 % 1.0-3.0 09/10/2017 6:09/10/2017 7:44am Basophils (%) (Auto) 0.2 % 0.0-2.0 [...] CLEAR 09/08/2017 7:34pm 09/08 9:35pm Urine Specific [place] 1.015 1.005-1.025 09/08 7:34pm 09/08/2017 9:35pm Urine pH 6.5 5.0-7.0 09/08/2017 7:34pm 09/08/2017 9: 35pm Urine Glucose Negative NEGATIVE 09/08/2017 7:34pm 2017 9:35pm Urine Bilirubin Moderate NEGATIVE 09/08/2017 7:34pm 08/2017 9:35pm Urine Ketones 15 A NEGATIVE 09/08/2017 7:34pm 018 9:35pm Urine Protein Confirmation 3+ NEGATIVE 09/08/2017 7 :34pm 09/08/2017 9:35pm Urine RBC (Auto) Large A NEGATIVE 09/08/2017 7:34pm 0 08/2017 9:35pm Urine Urobilinogen 1.0 mg/dL 0.2-1.0 [...] AND REPEATED BACK BY:RENATO DRAKE RN [], LOCATION:[facility] [], 09/07/17, 0652, MMARRS Clostridium Difficile Toxin A & B NEGATIVE NEGATI VE 09/09/2017 8:19am 09/09/2017 9:17am Digoxin Level 1.8 ng/mL 0.90-2.0 09/10/2017 6:28am 018 7:56am Stool Culture (LAB) CNCTY RESULT RECEIVE 09/09/2017 8:19am 09/12/2017 12:11pm PLEASE REFER TO HARD COPY FOR RESULTS. Specimen sent for testing to: [address] [address] Ova and Parasites (LAB) KDHE RESULT RECEIVED 09/09/2017 8:19am 09/17/2017 9:29am PLEASE REFER TO HARD COPY FOR RESULTS. Specimen sent for testing to: [facility] [address] [place] [address] Glucose Level 104 mg/dL 74-106 09/17/2017 11:15am 018 11:40am Blood Urea Nitrogen 22 mg/dL A 7-18 09/17/2017 11:15am 0 09/17/2017 11:40am Creatinine 1.6 mg/dL A 0.6-1.3 09/17/2017 11:15am 09/17/2017 11:40am BUN/Creatinine Ratio 13.9 RATIO 09/17/2017 11:15am 09/17/2017 11:40am Calcium Level 9.1 mg/dL 8.5-10.1 09/17/2017 11:15am 2017 11:40am Sodium Level 134 mmol/l A 136-145 09/17/2017 11:15am 09/18/19 18 11:40am Potassium Level 2.8 mmol/L A 3.5-5.1 09/17/2017 11:15am 09/17 11:40am CRITICAL RESULT VERIFIED BY REPEAT ANALYSIS AND/OR DILUTION CALLED TO AND REPEATED BACK BY: [], LOCATION: [], 09/17/17, 1139, DJENSEN Chloride Level 95 mmol/L A 98-107 09/17/2017 11:15am 2017 11:40am Carbon Dioxide Level 30.4 mmol/L 21.0-32.0 8 11:15am 09/17/2017 11:40am Albumin 3.6 g/dL 3.4-5.0 09/17/2017 11:15am 09/17/2017 11 :40am Total Protein 7.9 g/dL 6.4-8.2 09/17/2017 11:15am 018 11:40am Globulin 4.3 g/dL 2.0-5.0 09/17/2017 11:15am 09/17/2017 1 1:40am Albumin/Globulin Ratio 0.8 A 1.1-2.5 09/17/2017 11:15a m 09/17/2017 11:40am Total Bilirubin 0.5 mg/dL 0.2-1.0 09/17/2017 11:15am 09/17 11:40am Direct Bilirubin 0.2 mg/dL 0.0-0.2 09/17/2017 11:15am 09/04 11:40am Alkaline Phosphatase 153 U/L A 46-116 09/17/2017 11:15am 09/17/2017 11:40am Alanine Aminotransferase (ALT/SGPT) 27 U/L 12-7 8 09/17/2017 11:15am 09/17/2017 11:40am Aspartate Amino Transf (AST/SGOT) 21 U/L 15-37 09/17/2017 11:15am 09/17/2017 11:40am Glomerular Filtration Rate Calc 46.48 mL/min >60 09/17/2017 11:15am 09/17/2017 11:40am Magnesium Level 1.5 mg/dL A 1.8-2.4 09/17/2017 11:15am 09/17 11:40am Procedures No procedure information available. Encounters Encounter Location Arrival/Admit Date Discharge/Depart Date Attending Provider Departed Clinic [facility] 09/17/17 11:05am 11:59pm SRIDHAR LARSON DO Discharged Inpatient [facility] 09/06/17 1:10pm 09/10/17 5:40pm SRIDHAR LARSON DO Departed Emergency Room [facility]. 09/06/17 10: 25am 09/06/17 1:10pm GARCIA MARKHAM MD Departed [facility] 08/28/17 3:04pm 8 11:59pm RUBSRIDHAR DELGADO DO Departed [facility]. 08/20/17 8:22am 8 11:59pm RUBSRIDHAR DELGADO DO Departed [facility]. 08/03/17 2:18pm 8 11:59pm SRIDHAR LARSON DO Departed [facility]. 07/30/17 2:47pm 8 11:59pm RUBSRIDHAR DELGADO DO Departed [facility]. 07/23/17 8:21am 8 11:59pm MARVEL BROWN MD Departed [facility]. 05/21/17 7:41am 8 11:59pm SRIDHAR LARSON DO
--- OUTSIDE RECORDS SUMMARY | 2019-09-03 18:57 | XMS REPORT | Continuity of Care Document ---
Author Organization Unknown Address [address] [place] [address] Phone Unavailable Care Team Providers Care Instructor Decorating Name Role Phone SRIDHAR LARSON DO PCP Insurance Providers Payer Name Policy Number Subscriber Name Relationship Medicare [id number] Valente Limon Jr Self / Same A s Patient [facility] [id number] Valente Limon Jr Self / Same A [...] discharge instructions. Plan of Care Discharge Date 05/22/16 11:59pm Prescriptions See Medication Section Functional Status No functional status results. Allergies, Adverse Reactions, Alerts No known allergies. Immunizations No immunization records. Vital Signs No known vital signs results. Results Laboratory Results Test Name Result Units Flags Reference Collection Date/Time Result Date/Time Comments Urine Color YELLOW YELLOW 01/30/2016 2:50am 01/30/2016 10:12am Urine Appearance Slightly CLEAR 01/30/2016 2:50am 01/05 10:12am Urine Specific [place] >= 1.030 A 1.005-1.025 01/29 2:50am 01/30/2016 10:12am Urine pH 5.5 5.0-7.0 01/30/2016 2:50am 01/30/2016 10 :12am Urine Glucose Negative NEGATIVE 01/30/2016 2:50am 2015 10:12am Urine Bilirubin Negative NEGATIVE 01/30/2016 2:50am 01/05 10:12am Urine Ketones Negative NEGATIVE 01/30/2016 2:50am 2015 10:12am Urine Protein Negative mg/dL NEGATIVE 01/30/2016 2:50am 2015 10:12am Urine RBC (Auto) Negative NEGATIVE 01/30/2016 2:50am 10:12am Urine Urobilinogen 0.2 mg/dL 0.2-1.0 01/30/2016 2:50am 10:12am Urine Nitrate Negative NEGATIVE 01/30/2016 2:50am 2015 10:12am Urine Leukocyte Esterase Negative NEGATIVE 01/29 2:50am 01/30/2016 10:12am Prostate Specific Antigen 2.0 ng/mL 0.0-4.0 01/05 9:49am 01/30/2016 10:39am White Blood Count 6.9 x10^3/uL 4.5-13.5 03/19/2016 10:00am 1 05/20/2015 12:02pm Red Blood Count 4.34 x10^6/uL A 4.60-6.20 03/19/2016 10:00am 12:02pm Hemoglobin 14.4 g/dl 13.5-18.0 03/19/2016 10:00am 03/19/20 16 12:02pm Hematocrit 43.1 % 40.0-50.0 03/19/2016 10:00am 03/19/20 16 12:02pm Mean Corpuscular Volume 99 fL A 82-96 03/19/2016 10:00 am 03/19/2016 12:02pm Mean Corpuscular Hemoglobin 33.2 pg A 28.0-33.0 10:00am 03/19/2016 12:02pm Mean Corpuscular Hemoglobin Concent 33.4 g/dL 32.0 -36.0 03/19/2016 10:00am 03/19/2016 12:02pm RDW Coefficient of Variation 13.4 % 11.5-14.5 1 05/20/2015 10:00am 03/19/2016 12:02pm RDW Standard Deviation 47.7 fL A 35.1-43.9 016 10:00am 03/19/2016 12:02pm Platelet Count 216 x10^3/uL 150-400 03/19/2016 10:00am 03/19 12:02pm Mean Platelet Volume 9.9 fL 7.0-11.0 03/19/2016 10:00am 03/19/2016 12:02pm Neutrophils (%) (Auto) 70.9 % 40.0-79.0 03/19/2016 10:0 0am 03/19/2016 12:02pm Lymphocytes (%) (Auto) 19.8 % 10.0-50.0 03/19/2016 10:0 0am 03/19/2016 12:02pm Monocytes (%) (Auto) 7.8 % 3.0-13.0 03/19/2016 10:00am 03/19/2016 12:02pm Eosinophils (%) (Auto) 1.4 % 1.0-3.0 03/19/2016 10:00a m 03/19/2016 12:02pm Basophils (%) (Auto) 0.1 % 0.0-2.0 03/19/2016 10:00am 03/19/2016 12:02pm Neutrophils # (Auto) 4.9 x10^3 1.5-6.6 03/19/2016 10:00am 03/19/2016 12:02pm Lymphocytes # (Auto) 1.4 x10/uL A 1.5-3.5 03/19/2016 10:00am 03/19/2016 12:02pm Monocytes # (Auto) 0.5 x10^3/uL 0.0-1.0 03/19/2016 10:00am 1 05/20/2015 12:02pm Eosinophils # (Auto) 0.1 x10^3/uL 0.0-0.7 6 10:00am 03/19/2016 12:02pm Basophils # (Auto) 0.0 x10^3/uL 0.0-0.1 03/19/2016 10:00am 1 05/20/2015 12:02pm Glucose Level 79 mg/dL 74-106 03/19/2016 10:00am 016 12:09pm Blood Urea Nitrogen 23 mg/dL A 7-18 03/19/2016 10:00am 1 05/20/2015 12:09pm Creatinine 1.3 mg/dL 0.7-1.3 03/19/2016 10:00am 03/19/2016 12:09pm BUN/Creatinine Ratio 18.3 RATIO 03/19/2016 10:00am 03/19/2016 12:09pm Calcium Level 9.2 mg/dL 8.5-10.1 03/19/2016 10:00am 2015 12:09pm Sodium Level 143 mmol/l 136-145 03/19/2016 10:00am 03/19/20 16 12:09pm Potassium Level 4.2 mmol/L 3.5-5.1 03/19/2016 10:00am 03/19 12:09pm Chloride Level 103 mmol/L 98-107 03/19/2016 10:00am 2015 12:09pm Carbon Dioxide Level 30.9 mmol/L 21.0-32.0 6 10:00am 03/19/2016 12:09pm Albumin 4.0 g/dL 3.4-5.0 03/19/2016 10:00am 03/19/2016 12 :09pm Total Protein 7.3 g/dL 6.4-8.2 03/19/2016 10:00am 016 12:09pm Globulin 3.3 g/dL 2.0-5.0 03/19/2016 10:00am 03/19/2016 1 2:09pm Albumin/Globulin Ratio 1.2 1.1-2.5 03/19/2016 10:00a m 03/19/2016 12:09pm Total Bilirubin 0.5 mg/dL 0.2-1.0 03/19/2016 10:00am 03/19 12:09pm Direct Bilirubin 0.2 mg/dL 0.0-0.2 03/19/2016 10:00am 03/06 12:09pm Alkaline Phosphatase 139 U/L A 46-116 03/19/2016 10:00am 03/19/2016 12:09pm Alanine Aminotransferase (ALT/SGPT) 21 U/L 12-7 8 03/19/2016 10:00am 03/19/2016 12:09pm Aspartate Amino Transf (AST/SGOT) 13 U/L A 15-37 03/19/2016 10:00am 03/19/2016 12:09pm Glomerular Filtration Rate Calc 59.45 mL/min >60 03/19/2016 10:00am 03/19/2016 12:09pm Cholesterol Level 111 mg/dL <200 05/22/2016 7:14am 05/07 7:48am Triglycerides Level 62 mg/dL <150 05/22/2016 7:14am 7:48am HDL Cholesterol 68 mg/dL A 40-60 05/22/2016 7:14am 2016 7:48am LDL Cholesterol, Calculated 30.6 mg/dL 0-130 7:14am 05/22/2016 7:48am VLDL Cholesterol 12.4 mg/dL 0-40 05/22/2016 7:14am 05/22 7:48am Cholesterol/HDL Ratio 1.6 RATIO 05/22/2016 7:14am 05/22/2016 7:48am Cholesterol Ratio (LDL/HDL) 0.45 RATIO A 0.70-3.55 7:14am 05/22/2016 7:48am Procedures No known history of procedures. Encounters Encounter Location Arrival/Admit Date Discharge/Depart Date Attending Provider Registered Clinic [facility] 05/22/16 7:10am SRIDHAR LARSON DO Departed Clinic [facility]. 03/19/16 10:59am 11:59pm SRIDHAR LARSON DO Departed [facility]. 02/05/16 6:55am 6 11:59pm SADAF DARLING MD Departed [facility]. 01/30/16 9:36am 6 11:59pm SADAF DARLING MD
--- OUTSIDE RECORDS SUMMARY | 2019-09-03 18:57 | XMS REPORT | Continuity of Care Document ---
Author Organization Unknown Address [address] [place] [address] Phone Unavailable Care Team Providers Care Awning Assembler Name Role Phone SRIDHAR LARSON DO PCP Insurance Providers Guarantor Valente Limon Jr Address [address] [place] [phone] Payer Medicare Policy Number [id number] Subscriber's Name Valente Limon Jr Relationship Self / Same As [facility] [id number] Subscriber's Name Valente Limon Jr Relationship Self [...] Community Resource Use Y - lives at [facility] 3:16pm Not Applicable Not Applicable Hx [...] information available. Plan of Care Discharge Date 07/23/17 11:59pm Prescriptions See Medication Section Functional Status [...] Slightly CLEAR 04/24/2017 11:04am 11:11am Urine Specific [place] >= 1.030 A 1.005-1.025 04/24 11:04am 04/24/2017 [...] Epithelial Cells NONE SEEN /LPF NEGATIVE 018 11:0404/24/2017 11:40am Urine Amorphous Sediment 2+ 04/24/2017 11:0 4am 04/24/2017 11:40am Urine Bacteria 2+ /HPF A NEGATIVE 04/24/2017 11:0404/24 11:40am Urine Hyaline Casts 0-3 NEGATIVE 04/24/2017 [...] CALCULATED AND PROVIDED RE COMMENDED BY THE [employer] USING THE FORMULA 28.7 X A1c - 46.7= eAG QZ-Its-N-Type Natriuretic Peptide 1428 pg/mL A 0-125 04/24/2017 8:30am 04/24/2017 6:36pm Ionized Calcium 1.16 mmol/L A 1.18-1.30 04/24/2017 8:30am 04/07 3:22pm Testing performed at [facility], [id number] [facility], [place] [address]. Cholesterol Level 116 mg/dL <200 05/21/2017 7:4605/07 [...] 0.8 ng/mL 0.0-4.0 07/05 9:00am 07/23/2017 4:44pm Procedures No procedure information available. Encounters Encounter Location Arrival/Admit Date Discharge/Depart Date Attending Provider Departed Clinic [facility]. 07/23/17 8:21am 8 11:59pm MARVEL BROWN MD Departed Clinic [facility]. 05/21/17 7:41am 8 11:59pm SRIDHAR LARSON DO Discharged Inpatient [facility]. 04/24/17 10:35a m 04/27/17 1:40pm SRIDHAR LARSON DO Departed Emergency Room [facility]. 04/24/17 7:4 0am 04/24/17 10:30am JOHNNY GANNON Departed Clinic [facility]. 03/26/17 8:58am 7 11:59pm SRIDHAR LARSON DO
--- OUTSIDE RECORDS SUMMARY | 2019-09-03 18:57 | XMS REPORT | Continuity of Care Document ---
Author Organization Unknown Address [address] [place] [address] Phone Unavailable Care Team Providers Care Delivery Director Name Role Phone SRIDHAR LARSON DO PCP Insurance Providers Payer Name Policy Number Subscriber Name Relationship Medicare [id number] Valente Limon Jr Self / Same A s Patient [facility] [id number] Valente Limon Jr Self / Same A [...] discharge instructions. Plan of Care Discharge Date 03/19/16 11:59pm Prescriptions See Medication Section Functional Status No functional status results. Allergies, Adverse Reactions, Alerts No known allergies. Immunizations No immunization records. Vital Signs No known vital signs results. Results Laboratory Results Test Name Result Units Flags Reference Collection Date/Time Result Date/Time Comments Prostate Specific Antigen 2.2 ng/mL 0.0-4.0 09/2015 11:16am 12/11/2015 12:11pm Urine Color YELLOW YELLOW 01/30/2016 2:50am 01/30/2016 10:12am Urine Appearance Slightly CLEAR 01/30/2016 2:50am 01/05 10:12am Urine Specific [place] >= 1.030 A 1.005-1.025 01/29 2:50am 01/30/2016 [...] 59.45 mL/min >60 03/19/2016 10:00am 03/19/2016 12:09pm Procedures No known history of procedures. Encounters Encounter Location Arrival/Admit Date [facility] 10[facility]59[facility] 11:59pm [facility] 6:55am 6 11:59pm [facility] 01/30/16 9:36am 6 11:59pm [facility] 12/11/15 10:55am 11:59pm YADI MORRISON MD
--- OUTSIDE RECORDS SUMMARY | 2019-09-03 18:58 | XMS REPORT | Continuity of Care Document ---
Author Organization Unknown Address [address] [place] [address] Phone Unavailable Care Team Providers Care Accounts Payable Representative Name Role Phone SRIDHAR LARSON DO PCP Insurance Providers Payer Name Policy Number Subscriber Name Relationship Medicare [id number] Valente Limon Jr Self / Same A s Patient [facility] [id number] Valente Limon Jr Self / Same A [...] discharge instructions. Plan of Care Discharge Date 07/31/16 11:59pm Prescriptions See Medication Section Functional Status [...] HDL Cholesterol 68 mg/dL A 40-60 05/22/2016 7:142016 7:48am LDL Cholesterol, Calculated 30.6 mg/dL 0-130 7:1405/22/2016 7:48am VLDL Cholesterol 12.4 mg/dL 0-40 05/22/2016 7:1405/22 7:48am Cholesterol/HDL Ratio 1.6 RATIO 05/22/2016 7:1405/22/2016 7:48am Cholesterol Ratio (LDL/HDL) 0.45 RATIO A 0.70-3.55 7:14am 05/22/2016 7:48am Prostate Specific Antigen 0.7 ng/mL 0.0-4.0 07/05 10:48am 07/15/2016 3:38pm Urine Color YELLOW YELLOW 07/31/2016 K 07/31/2016 10 :31am Urine Appearance Clear CLEAR 07/31/2016 K 08/01/19 17 10:31am Urine Specific [place] 1.020 1.005-1.025 07/31/2016 UN K 07/31/2016 10:31am Urine pH 5.5 5.0-7.0 07/31/2016 K 07/31/2016 10:31 am Urine Glucose Negative NEGATIVE 07/31/2016 K 7 10:31am Urine Bilirubin Negative NEGATIVE 07/31/2016 K 017 10:31am Urine Ketones Negative NEGATIVE 07/31/2016 K 7 10:31am Urine Protein Negative mg/dL NEGATIVE 07/31/2016 K 7 10:31am Urine RBC (Auto) Negative NEGATIVE 07/31/2016 K 2016 10:31am Urine Urobilinogen 0.2 mg/dL 0.2-1.0 07/31/2016 K 2016 10:31am Urine Nitrate Negative NEGATIVE 07/31/2016 K 7 10:31am Urine Leukocyte Esterase Negative NEGATIVE 07/31 K 07/31/2016 10:31am Procedures No known history of procedures. Encounters Encounter Location Arrival/Admit Date Discharge/Depart Date Attending Provider Departed [facility]. [facility]. 07/31/16 9:14am 7 11:59pm SADAF DARLING MD Departed [facility]. [facility]. 07/15/16 10:21am 11:59pm YADI MORRISON MD Departed [facility]. CTR. 05/22/16 7:10am 7 11:59pm SRIDHAR LARSON DO
--- OUTSIDE RECORDS SUMMARY | 2019-09-03 18:58 | XMS REPORT | Continuity of Care Document ---
Author Organization Unknown Address [address] [place] [address] Phone Unavailable Care Team Providers Care Dish Room Worker Name Role Phone SRIDHAR LARSON DO PCP Insurance Providers Payer Name Policy Number Subscriber Name Relationship Medicare [id number] Valente Limon Jr Self / Same A s Patient [facility] [id number] Valente Limon Jr Self / Same A [...] discharge instructions. Plan of Care Discharge Date 02/05/16 11:59pm Prescriptions See Medication Section Functional Status [...] CLEAR 01/30/2016 2:50am 01/05 10:12am Urine Specific [place] >= 1.030 A 1.005-1.025 01/29 2:50am 01/30/2016 [...] 2.0 ng/mL 0.0-4.0 01/05 9:49am 01/30/2016 10:39am Procedures No known history of procedures. Encounters Encounter Location Arrival/Admit Date Discharge/Depart Date Attending Provider Departed [facility]. [facility]. 02/05/16 6:55am 6 11:59pm SADAF DARLING MD Departed [facility]. [facility]. 01/30/16 9:36am 6 11:59pm SADAF DARLING MD Departed [facility]. 12/11/15 10:55am 11:59pm YADI MORRISON MD Departed [facility]. [facility]. 10/11/15 8:51am 6 11:59pm SRIDHAR LARSON DO
--- OUTSIDE RECORDS SUMMARY | 2019-09-03 18:58 | XMS REPORT | Continuity of Care Document ---
Author Organization Unknown Address [address] [place] [address] Phone Unavailable Care Team Providers Care Emt Name Role Phone SRIDHAR LARSON DO PCP Insurance Providers Payer Name Policy Number Subscriber Name Relationship Medicare [id number] Valente Limon Jr Self / Same A s Patient [facility] [id number] Valente Limon Jr Self / Same A [...] discharge instructions. Plan of Care Discharge Date 08/02/15 11:59pm Prescriptions See Medication Section Functional Status [...] Clear CLEAR 08/02/2015 9:1208/01 10:09am Urine Specific [place] 1.020 1.005-1.025 08/01 9:1208/02/2015 10:09am Urine pH 5.5 5.0-7.0 08/02/2015 9:1208/02/2015 10 :09am Urine Glucose Negative NEGATIVE 08/02/2015 9:12am 2015 10:09am Urine Bilirubin Negative NEGATIVE 08/02/2015 9:12am /11/2015 10:09am Urine Ketones Negative NEGATIVE 08/02/2015 9:12am [...] Date Discharge/Depart Date Attending Provider Departed Clinic [facility] 08/02/15 9:04am 6 11:59pm [facility] 07/17/15 3:46pm 6 11:59pm SRIDHAR LARSON DO
--- OUTSIDE RECORDS SUMMARY | 2019-09-03 18:58 | XMS REPORT | Continuity of Care Document ---
Author Organization Unknown Address [address] [place] [address] Phone Unavailable Care Team Providers Care Primer Inserting Machine Operator Name Role Phone SRIDHAR LARSON DO PCP Insurance Providers Payer Name Policy Number Subscriber Name Relationship Medicare [id number] Valente Limon Jr Self / Same A s Patient [facility] [id number] Valente Limon Jr Self / Same A [...] discharge instructions. Plan of Care Discharge Date 01/30/16 11:59pm Prescriptions See Medication Section Functional Status [...] CLEAR 01/30/2016 2:50am 01/05 10:12am Urine Specific [place] >= 1.030 A 1.005-1.025 01/29 2:50am 01/30/2016 [...] Discharge/Depart Date Attending Provider Departed [facility]. 01/30/16 9:36am 6 11:59pm SADAF DARLING MD Departed [facility]. [facility]. 12/11/15 10:55am 11:59pm YADI MORRISON MD Departed [facility]. [facility]. 10/11/15 8:51am 6 11:59pm SRIDHAR LARSON DO
--- OUTSIDE RECORDS SUMMARY | 2019-09-03 18:58 | XMS REPORT | Continuity of Care Document ---
Author Organization Unknown Address [address] [place] [address] Phone Unavailable Care Team Providers Care Flotation Tender Name Role Phone MARSHA SRIDHAR DO PCP Insurance Providers Guarantor Valente Limon Jr Address [address] [place] [phone] [facility]ayer [facility] Policy Number [id number] Subscriber's Name Valente Limon Jr Relationship Self / Same As Patient Effective Date 16 Payer Medicare Policy Number [id number] Subscriber's Name Valente Limon Jr Relationship Self [...] information available. Plan of Care Discharge Date 02/09/17 11:59pm Prescriptions See Medication Section Functional Status No functional status information available. Allergies, Adverse Reactions, Alerts No known allergies. Immunizations No immunization information available. Vital Signs No vital sign information available. Results Laboratory Results Test Name Result Units Flags Reference Collection Date/Time Result Date/Time Comments Urine Color YELLOW YELLOW 10/13/2016 9:10/13/2016 9:50am Urine Appearance Clear CLEAR 10/13/2016 9:10/13 9:50am Urine Specific [place] 1.020 1.005-1.025 10/13 9:10/13/2016 9:50am Urine pH [...] pg/mL A 15.00-65.00 02/09/2017 7:46am 02/09/2017 4:09pm Procedures No procedure information available. Encounters Encounter Location Arrival/Admit Date Discharge/Depart Date Attending Provider Departed Clinic [facility]. 02/09/17 7:41am 7 11:59pm SRIDHAR LARSON DO Departed [facility]. [facility]. 02/03/17 8:11am 7 11:59pm WADE TOVAR MD Departed [facility]. 10/15/16 7:42am 7 11:59pm SADAF DARLING MD Departed [facility]. 10/13/16 9:20am 7 11:59pm SADAF DARLING MD
--- OUTSIDE RECORDS SUMMARY | 2019-09-03 18:58 | XMS REPORT | Continuity of Care Document ---
Author Organization Unknown Address [address] [place] [address] Phone Unavailable Care Team Providers Care Dental Assistant Teacher Name Role Phone SRIDHAR LARSON DO PCP Insurance Providers Payer Name Policy Number Subscriber Name Relationship Medicare [id number] Valente Limon Jr Self / Same A s Patient [facility] [id number] Valente Limon Jr Self / Same A [...] discharge instructions. Plan of Care Discharge Date 12/11/15 11:59pm Prescriptions See Medication Section Functional Status No functional status results. Allergies, Adverse Reactions, Alerts No known allergies. Immunizations No immunization records. Vital Signs No known vital signs results. Results Laboratory Results Test Name Result Units Flags Reference Collection Date/Time Result Date/Time Comments Glucose Level 98 mg/dL 74-106 08/23/2015 9:43am [...] 3.6 ng/mL 0.0-4.0 10/2015 8:35am 09/11/2015 9:20am Prostate Specific Antigen 3.3 ng/mL 0.0-4.0 10/2015 8:59am 10/11/2015 5:00pm Prostate Specific Antigen 2.2 ng/mL 0.0-4.0 09/2015 11:16am 12/11/2015 12:11pm Procedures No known history of procedures. Encounters Encounter Location Arrival/Admit Date Discharge/Depart Date Attending Provider Departed [facility]. [facility]. 12/11/15 10:55am 11:59pm [facility] 10/11/15 8:51am 6 11:59pm [facility] 09/11/15 8:26am 6 11:59pm [facility] 08/23/15 9:34am 6 11:59pm [facility] 08/15/15 10:48am 11:59pm SADAF DARLING MD
--- OUTSIDE RECORDS SUMMARY | 2019-09-03 18:58 | XMS REPORT | Continuity of Care Document ---
Author Organization Unknown Address [address] [place] [address] Phone Unavailable Care Team Providers Care Qa Automation Architect Name Role Phone GARCIA MARKHAM MD PCP Insurance Providers Guarantor Valente Limon Jr Address [address] [place] [phone] Payer Medicare Policy Number [id number] Subscriber's Name Valente Limon Jr Relationship Self / Same As Patient [facility] [id number] Subscriber's Name Valente Limon Jr Relationship Self / Same As Patient Advance Directives Directive Response Recorded Date/Time Resuscitation Status Full Code 04/24/17 2:10pm Problems Medical Problem Onset Date Status Acute [...] discharge instruction information available. Plan of Care Instructions/Education Provided Renal Failure Diet (DC ) [...] 5 ft 10 in 09/06/2017 1:30pm Weight 324 lb 09/07/2017 4:05am Body Mass Index 46.5 kg/m^2 09/07/2017 4:05am Results Laboratory Results Test Name Result Units Flags Reference Collection Date/Time Result Date/Time Comments Thyroid Stimulating Hormone (TSH) 1.54 uIU/mL 0.358- 3.74 05/21/2017 7:46am 05/21/2017 4:35pm Prostate Specific Antigen 0.8 ng/mL 0.0-4.0 07/05 9:00am 07/23/2017 4:44pm Vitamin D 25-Hydroxy 36.0 ng/mL 30.0-59.9 08/20/2017 9:00am 08/21/2017 4:42pm Urine Color YELLOW YELLOW 09/06/2017 6:27pm 09/06/2017 6:39pm Urine Appearance Clear CLEAR 09/06/2017 6:27pm 09/06 6:39pm Urine Specific [place] 1.010 1.005-1.025 09/06 6:27pm 09/06/2017 6:39pm Urine pH 7.0 5.0-7.0 09/06/2017 6:27pm 09/06/2017 6: 39pm Urine Glucose Negative NEGATIVE 09/06/2017 6:27pm 2017 6:39pm Urine Bilirubin Negative NEGATIVE 09/06/2017 6:27pm 06/0 06/2017 6:39pm Urine Ketones Negative NEGATIVE 09/06/2017 6:27pm 2017 6:39pm Urine Protein Negative mg/dL NEGATIVE 09/06/2017 6:27pm 2017 6:39pm Urine RBC (Auto) Negative NEGATIVE 09/06/2017 6:27pm 06/2017 6:39pm Urine Urobilinogen 0.2 mg/dL 0.2-1.0 09/06/2017 6:27pm 06/2017 6:39pm Urine Nitrate Negative NEGATIVE 09/06/2017 6:27pm 2017 6:39pm Urine Leukocyte Esterase Negative NEGATIVE 09/06 6:27pm 09/06/2017 6:39pm Urine Random Sodium 83 mmol/L 40-220 09/06/2017 6:28pm 6:36pm Urine Creatinine 22.41 mg/dL 09/06/2017 6:28pm 09/06 6:36pm Total Protein 7.1 g/dL 6.4-8.2 09/06/2017 11:31am 018 12:09pm Globulin 4.0 g/dL 2.0-5.0 09/06/2017 11:31am 09/06/2017 1 2:09pm Albumin/Globulin Ratio 0.8 A 1.1-2.5 09/06/2017 11:31a m 09/06/2017 12:09pm Total Bilirubin 0.6 mg/dL 0.2-1.0 09/06/2017 11:3109/06 12:09pm Direct Bilirubin 0.2 mg/dL 0.0-0.2 09/06/2017 11:31am 06/0 06/2017 12:09pm Alkaline Phosphatase 125 U/L A 46-116 09/06/2017 11:31am 09/06/2017 12:09pm Alanine Aminotransferase (ALT/SGPT) 44 U/L 12-7 8 09/06/2017 11:31am 09/06/2017 12:09pm Aspartate Amino Transf (AST/SGOT) 46 U/L A 15-37 09/06/2017 11:31am 09/06/2017 12:09pm White Blood Count 7.9 x10^3/uL 4.5-13.5 09/07/2017 5:58am 6:15am Red Blood Count 3.72 x10^6/uL A 4.60-6.20 09/07/2017 5:58am 07/2017 6:15am Hemoglobin 11.8 g/dl A 13.5-18.0 09/07/2017 5:58am 8 6:15am Hematocrit 33.7 % A 40.0-50.0 09/07/2017 5:58am 8 6:15am Mean Corpuscular Volume 91 fL 82-96 09/07/2017 5:58a m 09/07/2017 6:15am Mean Corpuscular Hemoglobin 31.7 pg 28.0-33.0 5:58am 09/07/2017 6:15am Mean Corpuscular Hemoglobin Concent 35.0 g/dL 32.0 -36.0 09/07/2017 5:58am 09/07/2017 6:15am RDW Coefficient of Variation 13.4 % 11.5-14.5 0 09/07/2017 5:58am 09/07/2017 6:15am RDW Standard Deviation 43.0 fL 35.1-43.9 09/07/2017 5:58 am 09/07/2017 6:15am Platelet Count 276 x10^3/uL 150-400 09/07/2017 5:58am 2017 6:15am Mean Platelet Volume 8.2 fL 7.0-11.0 09/07/2017 5:58am 09/07/2017 6:15am Neutrophils (%) (Auto) 70.2 % 40.0-79.0 09/07/2017 5:58 am 09/07/2017 6:15am Lymphocytes (%) (Auto) 17.5 % 10.0-50.0 09/07/2017 5:58 am 09/07/2017 6:15am Monocytes (%) (Auto) 9.9 % 3.0-13.0 09/07/2017 5:58am 09/07/2017 6:15am Eosinophils (%) (Auto) 2.1 % 1.0-3.0 09/07/2017 5:58am 09/07/2017 6:15am Basophils (%) (Auto) 0.3 % 0.0-2.0 09/07/2017 5:58am 0 09/07/2017 6:15am Neutrophils # (Auto) 5.6 x10^3 1.5-6.6 09/07/2017 5:58am 0 09/07/2017 6:15am Lymphocytes # (Auto) 1.4 x10/uL A 1.5-3.5 09/07/2017 5:58am 0 09/07/2017 6:15am Monocytes # (Auto) 0.8 x10^3/uL 0.0-1.0 09/07/2017 5:58am 6:15am Eosinophils # (Auto) 0.2 x10^3/uL 0.0-0.7 09/07/2017 5:58am 09/07/2017 6:15am Basophils # (Auto) 0.0 x10^3/uL 0.0-0.1 09/07/2017 5:58am 6:15am Glucose Level 99 mg/dL 74-106 09/07/2017 5:58am 09/08/19 18 6:56am Blood Urea Nitrogen 33 mg/dL A 7-18 09/07/2017 5:58am 6:56am Creatinine 1.7 mg/dL A 0.6-1.3 09/07/2017 5:58am 09/07/2017 6:56am BUN/Creatinine Ratio 19.8 RATIO 09/07/2017 5:58am 0 09/07/2017 6:56am Calcium Level 7.8 mg/dL A 8.5-10.1 09/07/2017 5:58am 018 6:56am Sodium Level 134 mmol/l A 136-145 09/07/2017 5:58am 8 6:56am Potassium Level 2.3 mmol/L CL 3.5-5.1 09/07/2017 5:5 8am 09/07/2017 6:56am CRITICAL RESULT VERIFIED BY REPEAT ANALYSIS AND/OR DILUTION CALLED TO AND REPEATED BACK BY: RENATO DRAKE RN, LOCATION:[facility] , 09/07/17, 0653, MMARRS Chloride Level 94 mmol/L A 98-107 09/07/2017 5:58am 018 6:56am Carbon Dioxide Level 35.9 mmol/L A 21.0-32.0 8 5:58am 09/07/2017 6:56am Albumin 2.9 g/dL A 3.4-5.0 09/06/2017 6:06pm 09/06/2017 6:3 6pm Phosphorus Level 2.80 mg/dL 2.5-4.9 09/06/2017 6:06pm 09/06 6:36pm Glomerular Filtration Rate Calc 43.34 mL/min >60 09/07/2017 5:58am 09/07/2017 6:56am Estimated Creatinine Clearance Calc 63.70 09/07/2017 5:58am 09/07/2017 6:56am Adjusted body weight used for calculatio n. Cholesterol Level 99 mg/dL <200 09/07/2017 5:58am [...] A 0.70-3.55 5:58am 09/07/2017 6:56am Magnesium Level 1.8 mg/dL 1.8-2.4 09/06/2017 11:17am 09/06 5:23pm Troponin I 0.07 ng/mL CH 0.00-0.06 09/07/2017 5:58am 8 6:56am CRITICAL RESULT VERIFIED BY REPEAT ANALYSIS AND/OR DILUTION CALLED TO AND REPEATED BACK BY:RENATO DRAKE RN [], LOCATION:[facility] [], 09/07/17, 0652, MMARRS Digoxin Level 2.7 ng/mL CH 0.90-2.0 09/07/2017 5:58am 018 6:58am CRITICAL RESULT VERIFIED BY REPEAT ANALYSIS AND/OR DILUTION CALLED TO AND REPEATED BACK BY: RENATO DRAKE RN, LOCATION:[facility], 09/07/17, 0657, MMARRS Procedures No procedure information available. Encounters Encounter Location Arrival/Admit Date Discharge/Depart Date Attending Provider Admitted Inpatient [facility]. [facility]. 09/06/17 1:10pm RUBLOWELLALERYAJAIRAI Departed Emergency Room [facility]. CTR. 09/06/17 10: 25am 09/06/17 1:10pm GARCIA MARKHAM MD Departed [facility]. CTR. 08/28/17 3:04pm 8 11:59pm RUBENTHALERYAJAIRAI DO Departed [facility]. 08/20/17 8:22am 8 11:59pm RUBENTHALERYAJAIRAI DO Departed [facility]. CTR. 08/03/17 2:18pm 8 11:59pm RUBENTHALERYAJAIRAI DO Departed Clinic [facility]. 07/30/17 2:47pm 8 11:59pm RUBENTHALERYAJAIRAI DO Departed [facility]. CTR. 07/23/17 8:21am 8 11:59pm MARVEL BROWN MD Departed [facility]. CTR. 05/21/17 7:41am 8 11:59pm RUBLOWELLALESRIDHAR Bobby DO
--- OUTSIDE RECORDS SUMMARY | 2019-09-03 18:58 | XMS REPORT | Continuity of Care Document ---
Author Organization Unknown Address [address] [place] [address] Phone Unavailable Care Team Providers Care Chemical Sprayer Name Role Phone SRIDHAR LARSON DO PCP Insurance Providers Payer Name Policy Number Subscriber Name Relationship Medicare [id number] Valente Limon Jr Self / Same A s Patient [facility] [facility] [id number] Valente Limon Jr Self / Same A [...] discharge instructions. Plan of Care Discharge Date 07/15/16 11:59pm Prescriptions See Medication Section Functional Status No functional status results. Allergies, Adverse Reactions, Alerts No known allergies. Immunizations No immunization records. Vital Signs No known vital signs results. Results Laboratory Results Test Name Result Units Flags Reference Collection Date/Time Result Date/Time Comments White Blood Count 6.9 x10^3/uL 4.5-13.5 03/19/2016 [...] 0.7 ng/mL 0.0-4.0 07/05 10:48am 07/15/2016 3:38pm Procedures No known history of procedures. Encounters Encounter Location Arrival/Admit Date Discharge/Depart Date Attending Provider Departed [facility]. CTR. 07/15/16 10:21am 11:59pm YADI MORRISON MD Departed [facility]. CTR. 05/22/16 7:10am 7 11:59pm SRIDHAR LAROSN DO Departed [facility]. CTR. 03/19/16 10:59am 11:59pm SRIDHAR LARSON DO
--- OUTSIDE RECORDS SUMMARY | 2019-09-03 18:58 | XMS REPORT | Continuity of Care Document ---
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 Bradycardia 01/17/2012 Active Atrial fibrillation 01/17/2012 Active Medications Medication Dose Route Sig Days/Qty Instructions Order Date Disc ontinued Date Status Ipratropium/Albuterol Sulfate 3 Ml IH bid Active Digoxin 250 Mcg PO daily 12/13/11 Active Aspirin 81 Mg PO daily 12/13/11 Active Metoprolol Tartrate 50 Mg PO bid 12/13/11 Active Rivaroxaban 20 Mg PO daily 12/13/11 Act braydon Docusate Sodium 100 Mg PO daily 12/13/11 Active Famotidine 20 Mg PO daily 12/13/11 Acti ve Oxybutynin Chloride 5 Mg PO THREE TIMES DAILY Active Atorvastatin Calcium 40 Mg PO BEDTIME 12/13/11 Active Furosemide 80 Mg PO TWICE DAILY 12/13/11 Active Aripiprazole 10 Mg PO 01/17/12 Ac tive Diltiazem Hcl 180 Mg PO TWICE DAILY 01/17/12 Active Social History No social history. Hospital Discharge Instructions No hospital discharge instructions. Plan of Care No plan of care. Functional Status No functional status results. Allergies, Adverse Reactions, Alerts Allergen Type Severity Reaction Status Last Updated No Known Allergies ([id number]) Acti ve 08/07/11 Immunizations No immunization records. Vital Signs No known vital signs results. Results Test Source Date Result Interp. Ref. Range Comments Activated Partial Thromboplast Time September 18, 2011 11:15am 40.1 SECONDS H 26.8-28.2 Alanine Aminotransferase (ALT/SGPT) February 24, 2013 10:00a m 29 U/L N 12-78 Albumin February 24, 2013 10:00am 4.0 g/dL N 3.4- 5.0 Albumin/Globulin Ratio February 24, 2013 10:00am 1.0 L 1.1-2.5 Alkaline Phosphatase February 24, 2013 10:00am 128 U/L N 50-136 Aspartate Amino Transf (AST/SGOT) February 24, 2013 10:00am 17 U/L N 15-37 B-Type Natriuretic Peptide August 07, 2011 8:00am 58 pg/mL N 0-100 BUN/Creatinine Ratio September 22, 2013 10:00am 15.5 RATIO Basophils # (Auto) September 22, 2013 10:00am 0.1 K/uL N 0.0-0.1 Basophils (%) (Auto) September 22, 2013 10:00am 1 % N 0-2 Blood Urea Nitrogen September 22, 2013 10:00am 16.0 mg/dL N 7-18 Calcium Level September 22, 2013 10:00am 9.9 mg/dL N 8.5- 10.1 Carbon Dioxide Level September 22, 2013 10:00am 28.6 mmol/L N 21.0-32.0 Chloride Level September 22, 2013 10:00am 103 mmol/L N 98 -107 Cholesterol Level May 25, 2013 10:06am 110 mg/dL N <200 Cholesterol Ratio (LDL/HDL) May 25, 2013 10:06am 1.00 R ATIO N 0.70-3.55 Cholesterol/HDL Ratio May 25, 2013 10:06am 2.0 RATIO Clostridium Difficile Toxin A & B July 29, 2014 2:23pm NEGA TIVE NEGATIVE Creatine Kinase MB September 20, 2012 9:32pm < 0.5 ng/mL 0-3.6 Creatinine September 22, 2013 10:00am 1.0 mg/dL N 0.8-1.3 D-Dimer July 07, 2011 9:49am 1600 ng/mL H 0-600 Digoxin Level November 18, 2012 12:58pm 0.4 ng/mL L 0. 90-2.0 Direct Bilirubin February 24, 2013 10:00am 0.2 mg/dL N 0.0-0.2 Eosinophils # (Auto) September 22, 2013 10:00am 0.1 K/uL N 0-0.7 Eosinophils (%) (Auto) September 22, 2013 10:00am 1.5 % N 1.0-3.0 Estimat Glomerular Filtration Rate July 07, 2011 9:49am > 6 0 mL/min >60 Estimated Average Glucose (eAG) August 18, 2013 9:00am 108.28 m g/dL THE eAG IS CALCULATED AND PROVIDED RECOMMENDED BY [employer] ASSOCIATION USING THE FORMULA 28.7 X A1c - 46.7= eAG Ferritin May 28, 2011 1:57pm Reference test PLEASE REFER TO HARD COPY FOR RESULTS.Specimen sent for testing to: [facility] [address] [place] [address], [address] [place] [address] Globulin February 24, 2013 10:00am 3.9 g/dL N 2.0- 5.0 Glomerular Filtration Rate Calc September 22, 2013 10:00am >60 mL /min >60 Glucose Level September 22, 2013 10:00am 73 mg/dL L 74-1 06 HDL Cholesterol May 25, 2013 10:06am 56 mg/dL N 40-60 Hematocrit September 22, 2013 10:00am 45.0 % N 37.0-47 .0 Hemoglobin September 22, 2013 10:00am 15.3 g/dL N 13.5-18 .0 Hemoglobin A1c August 18, 2013 9:00am 5.4 % N 4.5-6 .2 Iron Level May 28, 2011 1:57pm Reference test Iron Saturation May 28, 2011 1:57pm Reference test LDL Cholesterol, Calculated May 25, 2013 10:06am 43.8 m g/dL N 0-130 Lymphocytes # (Auto) September 22, 2013 10:00am 3.1 K/uL N 1.5-3.5 Lymphocytes (%) (Auto) September 22, 2013 10:00am 32.0 % N 10.0-50.0 Magnesium Level July 02, 2012 12:42pm 2.0 mg/dL N 1 .8-2.4 Mean Corpuscular Hemoglobin September 22, 2013 10:00am 32.2 pg N 25.9-34.2 Mean Corpuscular Hemoglobin Concent September 22, 2013 10:00am 34.0 g/dL N 32.6-35.7 Mean Corpuscular Volume September 22, 2013 10:00am 95 fL N 78-97 Mean Platelet Volume September 22, 2013 10:00am 8.4 fL N 7.0-11.0 Monocytes # (Auto) September 22, 2013 10:00am 0.7 K/uL N 0.0-1.0 Monocytes (%) (Auto) September 22, 2013 10:00am 7 % N 3-13 RG-Chm-L-Type Natriuretic Peptide September 27, 2012 12:35pm 885 pg/mL H 0-125 Neutrophils # (Auto) September 22, 2013 10:00am 5.6 K/uL N 1.5-6.6 Neutrophils (%) (Auto) September 22, 2013 10:00am 58.6 % N 40.0-79.0 Phosphorus Level July 02, 2012 12:42pm 4.10 mg/dL N 2.5-4.5 Platelet Count September 22, 2013 10:00am 279 K/uL N 150 -450 Potassium Level September 22, 2013 10:00am 4.3 mmol/L N 3 .5-5.1 Prostate Specific Antigen February 14, 2015 11:55am 8.2 ng/m L H 0.0-4.0 Reason for Test? BPH Prothromb Time International Ratio September 18, 2011 11:15am 1.4 3 H 0.89-1.13 2.0- 3.0 For prophylaxsis of venous thrombstatis or pulmonary embolism and prevention of systemic embolism from artial fibrilation and/or myocardial infarction. 2.5-3.5 For prophylaxsis or treatment o f arterial thromboembolism,including mechanical heart valves and recurring sustemic embolism. Prothrombin Time September 18, 2011 11:15am 15.6 SECONDS H 10.0-12.6 Red Blood Count September 22, 2013 10:00am 4.75 M/uL N 4. 10-5.90 Red Cell Distribution Width September 22, 2013 10:00am 13.0 % N 11.5-15.5 Sodium Level September 22, 2013 10:00am 141 mmol/l N 136- 145 Thyroid Stimulating Hormone (TSH) May 27, 2012 10:59a m 0.94 uIU/mL N 0.49-4.67 Total Bilirubin February 24, 2013 10:00am 0.5 mg/dL N 0.2-1.0 Total Creatine Kinase September 20, 2012 9:32pm 51 U/L N 39-308 Total Iron Binding Capacity May 28, 2011 1:57pm Referen ce test Total Protein February 24, 2013 10:00am 7.9 g/dL N 6.4-8.2 Triglycerides Level May 25, 2013 10:06am 51 mg/dL N <150 Troponin I September 20, 2012 9:32pm < 0.02 ng/mL 0.00- 0.06 Unsaturated Iron Binding Capacity May 28, 2011 1:57pm R eference test Urine Amorphous Sediment June 30, 2013 12:00am Rare Urine Appearance November 30, 2014 11:21am Turbid CLEAR Urine Bacteria June 30, 2013 12:00am 1+ /HPF H NE GATIVE Urine Bilirubin November 30, 2014 11:21am Negative NEGATIVE Urine Color November 30, 2014 11:21am YELLOW YELL OW Urine Epithelial Cells June 30, 2013 12:00am 4-7 /LPF NEGATIVE Urine Glucose November 30, 2014 11:21am Negative NE GATIVE Urine Hyaline Casts July 07, 2011 10:39am 0-3 NEGATIVE Urine Ictotest July 07, 2011 10:39am Positive NE GATIVE Urine Ketones November 30, 2014 11:21am Negative NE GATIVE Urine Leukocyte Esterase November 30, 2014 11:21am Negative NEGATIVE Urine Mucus June 30, 2013 12:00am Marked /HPF H NEG ATIVE Urine Nitrate November 30, 2014 11:21am Negative NE GATIVE Urine Prot Sulfosalicylic Acid July 07, 2011 10:39am Trace NEGATIVE Urine Protein November 30, 2014 11:21am Negative mg/dL NEGATIVE Urine RBC June 30, 2013 12:00am 0-3 /HPF 0-3 Urine RBC (Auto) November 30, 2014 11:21am Negative NEGATIVE Urine Specific [place] November 30, 2014 11:21am >= 1.030 H 1.005-1.025 Urine Urobilinogen November 30, 2014 11:21am 0.2 mg/dL N 0.2-1.0 Urine WBC June 30, 2013 12:00am 0-3 /HPF 0-3 Urine Yeast June 30, 2013 12:00am None NEGAT BRAYDON Urine pH November 30, 2014 11:21am 6.0 N 5.0-7. 0 VLDL Cholesterol May 25, 2013 10:06am 10.2 mg/dL N 0-40 Vancomycin Level Trough November 04, 2011 8:03am 18.24 H 10.0-15.0 Vitamin B12 Level April 28, 2013 10:20am 990 pg/mL 230-1050 DX: VIT.B12 DEFICIENCY, EDEMATesting Performed at [facility], , [address] [place] [id number]. Vitamin D 25-Hydroxy May 27, 2012 10:59am 11.3 ng/mL L 30.0-100.0 Vitamin D deficiency has been defined by the [place] of[employer] and an Endocrine Society practice guideline as a level of serum 25-OH vitamin D less than 20 ng/mL (1,2). The Endocrine Society went on to further define vitamin D insufficiency as a level between 21 and 29 ng/mL (2). 1. IOM ([place] of Medicine). 2010. Di etary reference intakes for calcium and D. [place]: The National Academies Press. 2. Maricruz MF, aDryn NC, Tobias guevara REYNAGA, et al. Evaluation, treatment, and prevention of vitamin D deficiency: an Endocrine Society clinical practice guideline. JCEM. 2010; 96(7):1911-30. White Blood Count September 22, 2013 10:00am 9.6 K/uL N 4.5-11.5 Urine Culture Void November 30, 2014 11:21am Procedures No known history of procedures. Encounters Encounter Location Date/Time Registered Clinic [facility]. CTR. 02/14/15 11: 34am Registered Clinic [facility]. CTR. 11/30/14 11: 17am
--- OUTSIDE RECORDS SUMMARY | 2019-09-03 18:58 | XMS REPORT | Continuity of Care Document ---
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 [...] sent for testing to: [facility] [address] [place] [address], [address] [place] [address] Globulin February 24, 2013 10:00am 3.9 g/dL [...] 22, 2013 10:00am 7 % N 3-13 UI-Gyq-L-Type Natriuretic Peptide September 27, 2012 12:35pm 885 [...] mmol/L N 3 .5-5.1 Prostate Specific Antigen November 30, 2014 11:21am 7.9 ng/mL H 0.0-4.0 Prothromb Time International Ratio September 18, 2011 [...] 30, 2014 11:21am Negative NEGATIVE Urine Specific [place] November 30, 2014 11:21am >= 1.030 H [...] DEFICIENCY, EDEMATesting Performed at [facility], , [address] [place] [address] [address], [place] [address]. Vitamin D 25-Hydroxy May 27, 2012 10:59am 11.3 ng/mL L 30.0-100.0 Vitamin D deficiency has been defined by the [place] of[employer] and an Endocrine Society practice guideline as a level of serum 25-OH vitamin D less than 20 ng/mL (1,2). The Endocrine Society went on to further define vitamin D insufficiency as a level between 21 and 29 ng/mL (2). 1. IOM ([place] of Medicine). 2010. Di etary reference intakes for calcium and D. [place]: The National Academies Press. 2. Maricruz MF, Daryn SANDOVAL, Tobias guevara REYNAGA, et al. Evaluation, treatment, and prevention of vitamin D deficiency: an Endocrine Society clinical practice guideline. JCEM. 2010; 96(7):1911-30. White Blood Count September 22, 2013 10:00am 9.6 K/uL N 4.5-11.5 Urine Culture Void May 08, 2012 11:28am Procedures No known history of procedures. Encounters Encounter Location Date/Time Registered Clinic [facility]. CTR. 11/30/14 11: 17am
--- OUTSIDE RECORDS SUMMARY | 2019-09-03 18:58 | XMS REPORT | Continuity of Care Document ---
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 Plan of Care Discharge Date 03/26/17 11:59pm Prescriptions See Medication Section Functional Status No functional status information available. Allergies, Adverse Reactions, Alerts No known allergies. Immunizations No immunization information available. Vital Signs No vital sign information available. Results Laboratory Results Test Name Result Units Flags Reference Collection Date/Time Result Date/Time Comments Phosphorus Level 3.50 mg/dL 2.5-4.9 02/03/2017 8:20am 02/03 8:42am Magnesium Level 2.1 mg/dL 1.8-2.4 02/03/2017 8:20am 2016 8:42am Vitamin D 25-Hydroxy 15.0 ng/mL A 30.0-59.9 02/03/2017 8:20am 02/03/2017 6:14pm Parathyroid Hormone (Intact) 169.00 pg/mL A 15.00-65.00 02/09/2017 7:46am 02/09/2017 4:09pm Influenza Type A Antigen NEGATIVE NEGATIVE 03/23 2:43pm 03/23/2017 3:05pm Influenza Type B Antigen NEGATIVE NEGATIVE 03/23 2:43pm 03/23/2017 3:05pm White Blood Count 8.7 x10^3/uL 4.5-13.5 03/26/2017 9:00am 11:19am Red Blood Count 4.03 x10^6/uL A 4.60-6.20 03/26/2017 9:00am 11:19am Hemoglobin 13.1 g/dl A 13.5-18.0 03/26/2017 9:00am 7 11:19am Hematocrit 40.6 % 40.0-50.0 03/26/2017 9:00am 7 11:19am Mean Corpuscular Volume 101 fL A 82-96 03/26/2017 9:00a m 03/26/2017 11:19am Mean Corpuscular Hemoglobin 32.5 pg 28.0-33.0 9:00am 03/26/2017 11:19am Mean Corpuscular Hemoglobin Concent 32.3 g/dL 32.0 -36.0 03/26/2017 9:00am 03/26/2017 11:19am RDW Coefficient of Variation 13.6 % 11.5-14.5 1 05/27/2016 9:00am 03/26/2017 11:19am RDW Standard Deviation 49.4 fL A 35.1-43.9 03/26/2017 9:00 am 03/26/2017 11:19am Platelet Count 303 x10^3/uL 150-400 03/26/2017 9:00am 2016 11:19am Mean Platelet Volume 9.3 fL 7.0-11.0 03/26/2017 9:00am 03/26/2017 11:19am Neutrophils (%) (Auto) 72.1 % 40.0-79.0 03/26/2017 9:00 am 03/26/2017 11:19am Lymphocytes (%) (Auto) 17.7 % 10.0-50.0 03/26/2017 9:00 am 03/26/2017 11:19am Monocytes (%) (Auto) 7.9 % 3.0-13.0 03/26/2017 9:00am 03/26/2017 11:19am Eosinophils (%) (Auto) 2.2 % 1.0-3.0 03/26/2017 9:00am 03/26/2017 11:19am Basophils (%) (Auto) 0.1 % 0.0-2.0 03/26/2017 9:00am 1 05/27/2016 11:19am Neutrophils # (Auto) 6.3 x10^3 1.5-6.6 03/26/2017 9:00am 1 05/27/2016 11:19am Lymphocytes # (Auto) 1.5 x10/uL 1.5-3.5 03/26/2017 9:00am 1 05/27/2016 11:19am Monocytes # (Auto) 0.7 x10^3/uL 0.0-1.0 03/26/2017 9:00am 11:19am Eosinophils # (Auto) 0.2 x10^3/uL 0.0-0.7 7 9:00am 03/26/2017 11:19am Basophils # (Auto) 0.0 x10^3/uL 0.0-0.1 03/26/2017 9:00am 11:19am Glucose Level 81 mg/dL 74-106 03/26/2017 9:00am 03/26/20 17 11:43am Blood Urea Nitrogen 14 mg/dL 7-18 03/26/2017 9:00am 11:43am Creatinine 1.1 mg/dL 0.6-1.3 03/26/2017 9:00am 03/26/2017 11:43am BUN/Creatinine Ratio 12.7 RATIO 03/26/2017 9:00am 1 05/27/2016 11:43am Calcium Level 9.6 mg/dL 8.5-10.1 03/26/2017 9:00am 017 11:43am Sodium Level 142 mmol/l 136-145 03/26/2017 9:00am 7 11:43am Potassium Level 4.0 mmol/L 3.5-5.1 03/26/2017 9:00am 2016 11:43am Chloride Level 104 mmol/L 98-107 03/26/2017 9:00am 017 11:43am Carbon Dioxide Level 29.3 mmol/L 21.0-32.0 7 9:00am 03/26/2017 11:43am Albumin 3.1 g/dL A 3.4-5.0 03/26/2017 9:00am 03/26/2017 11: 43am Total Protein 7.0 g/dL 6.4-8.2 03/26/2017 9:00am 03/26/20 17 11:43am Globulin 3.9 g/dL 2.0-5.0 03/26/2017 9:00am 03/26/2017 11 :43am Albumin/Globulin Ratio 0.8 A 1.1-2.5 03/26/2017 9:00am 03/26/2017 11:43am Total Bilirubin 0.4 mg/dL 0.2-1.0 03/26/2017 9:00am 2016 11:43am Direct Bilirubin 0.2 mg/dL 0.0-0.2 03/26/2017 9:00am 03/26 11:43am Alkaline Phosphatase 124 U/L A 46-116 03/26/2017 9:00am 1 05/27/2016 11:43am Alanine Aminotransferase (ALT/SGPT) 29 U/L 12-7 8 03/26/2017 9:00am 03/26/2017 11:43am Aspartate Amino Transf (AST/SGOT) 21 U/L 15-37 03/26/2017 9:00am 03/26/2017 11:43am Glomerular Filtration Rate Calc >60 mL/min >60 03/26/2017 9:00am 03/26/2017 11:43am Procedures No procedure information available. Encounters Encounter Location Arrival/Admit Date Discharge/Depart Date Attending Provider Departed [facility]. 03/26/17 8:58am 7 11:[facility] 2:29pm 7 11:59pm SRIDHAR LARSON DO Departed [facility]. 02/09/17 7:41am 7 11:59pm SRIDHAR LARSON DO Departed [facility]. [facility]. 02/03/17 8:11am 7 11:59pm WADE TOVAR MD
--- OUTSIDE RECORDS SUMMARY | 2019-09-03 18:59 | XMS REPORT | Continuity of Care Document ---
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 Role Phone SRIDHAR LARSON DO PCP Insurance Providers Guarantor Valente Limon Jr Address [address] [place] [phone] [facility]ayer [facility] Policy Number [id number] Subscriber's Name Valente Limon Jr Relationship Self / Same As Patient Effective Date 16 Payer Medicare Policy Number [id number] Subscriber's Name Valente Limon Jr Relationship Self / Same As Patient Effective Date 16 Advance Directives Directive Response Recorded Date/Time Advance Directives No 04/24/17 2:10pm Resuscitation Status Full Code 04/24/17 2:10pm Problems [...] Community Resource Use Y - lives at [facility] 3:16pm Not Applicable Not Applicable Hx Alcohol Use No 04/24/2017 3:16pm Not Applicable Not Ap plicable Hx Substance Use No 04/24/2017 3:16pm Not Applicable Not Applicable Hx Physical Abuse No 04/24/2017 3:16pm Not Applicable Not Applicable Hx Suicide Attempt No 04/24/2017 3:16pm Not Applicable No t Applicable Hx Sleep Difficulties No 04/24/2017 3:16pm Not Applicable Not Applicable Smoking Status Never smoker 04/24/2017 3:16pm Not Applicable Not Ap plicable Hx Chewing Tobacco Use No 04/24/2017 3:16pm Not Applicabl e Not Applicable Smoking Status Start Date Stop Date Never smoker Hospital Discharge Instructions No hospital discharge instruction information available. Plan of Care Discharge Date 04/27/17 1:40pm Disposition 03 XFER SNF Prescriptions See Medication Section Functional Status No functional status information available. Allergies, Adverse Reactions, Alerts No known allergies. Immunizations Query Response on File Recorded Date/Time Hx Influenza Vaccination Y - fall 201604/24/17 3:16pm Hx Pneumococcal Vaccination Y - x2 [...] Rabies Vaccination No 04/24/17 3:16pm Vital Signs Acute Vital Signs Vital Response Date/Time Height 5 ft 8 in 04/24/2017 12:04pm Weight 345.38 lb 04/27/2017 5:28am Body Mass Index 52.5 kg/m^2 04/27/2017 5:28am Results Laboratory Results Test Name Result Units [...] Slightly CLEAR 04/24/2017 11:04am 11:11am Urine Specific [place] >= 1.030 A 1.005-1.025 04/24 11:0404/24/2017 11:11am Urine pH 5.5 5.0-7.0 04/24/2017 11:04am 04/24/2017 1 1:11am Urine Glucose Negative NEGATIVE 04/24/2017 11:0404/24 11:11am Urine Bilirubin Moderate NEGATIVE 04/24/2017 11:04am [...] CALCULATED AND PROVIDED RE COMMENDED BY THE [employer] USING THE FORMULA 28.7 X A1c - 46.7= eAG IQ-Fcq-M-Type Natriuretic Peptide 1428 pg/mL A 0-125 04/24/2017 8:30am 04/24/2017 6:36pm Thyroid Stimulating Hormone (TSH) 1.71 uIU/mL 0.358- 3.74 04/24/2017 8:30am 04/24/2017 11:33am Ionized Calcium 1.16 mmol/L A 1.18-1.30 04/24/2017 8:30am 04/07 3:22pm Testing performed at [facility], [id number] [place] [address]. Procedures No procedure information available. Encounters Encounter Location Arrival/Admit Date Discharge/Depart Date Attending Provider Discharged Inpatient [facility] 04/24/17 10:35a m 04/27/17 1:40pm SRIDHAR LARSON DO Departed Emergency Room [facility]. 04/24/17 7:4 0am 04/24/17 10:30am JOHNNY GANNON Departed Clinic [facility]. 03/26/17 8:58am 7 11:59pm SRIDHAR LARSON DO Departed Clinic [facility]. 03/23/17 2:29pm 7 11:59pm SRIDHAR LARSON DO Departed Clinic [facility]. 02/09/17 7:41am 7 11:59pm SRIDHAR LARSON DO Departed Clinic [facility]. 02/03/17 8:11am 7 11:59pm WADE TOVAR MD
--- OUTSIDE RECORDS SUMMARY | 2019-09-03 18:59 | XMS REPORT | Continuity of Care Document ---
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 Medications Active Medications Medication Dose Units Route Sig Qty Start Date Status In structions Simethicone [Phazyme] 250 MG PO twice a day 2018 Active Menthol [Cough Drops] 5 MG Mucous Membrane .PRN Fe bru2018 Active Fluticasone Propionate Nasal 1 SPRAY Intranasal twice a day May 13, 2018 Active Ondansetron Hcl [Zofran] 4 MG PO Q6H PRN October 06, 2017 Active Promethazine Hcl 25 MG PO Q6H PRN October 09, 2017 Ac tive Metoclopramide Hcl [Reglan] 10 MG PO Q6H October 09, 2017 Active Diltiazem Hcl [Tiazac] 240 MG PO daily June 08, 2018 Active Guaifenesin [Tussin Mucus-Chest Congestion] 200 MG PO Q4H PRN June 08, 2018 Active Tolnaftate 1 APPLIC Topical three times a day June 08 19 Active Hypromellose/Pf [Retaine Hpmc 0.3% Eye Drops] 1 DRP o phthalmic (eye) daily PRN August 18, 2018 Active Montelukast Sodium [Singulair] 10 MG PO every evening August 18, 2018 Active Magnesium Citrate 240 ML PO daily PRN August 18, 2018 Active Cyanocobalamin (Vitamin B-12) [B-12 Compliance] 1000 MCG IM every month June 08, 2018 Active Tamsulosin Hcl [Flomax] 0.4 MG PO daily June 08, 2018 Active Atorvastatin Calcium [Lipitor] 40 MG PO every day at bedt christian 30 October 17, 2011 Active Aripiprazole [Abilify] 30 MG PO daily 0 June 23, 2012 Active Acetaminophen [Tylenol] 1 - 2 TAB PO every 4-6 hours as needed 0 December 20, 2012 Active Magnesium Hydroxide [Milk Of Magnesia] 30 ML PO d aily as needed 0 December 20, 2012 Active Polyethylene Glycol 3350 17 GM PO daily 0 2014 Active Ranitidine Hcl [Zantac] 150 MG PO twice a day 30 August 15, 2015 Active Mirtazapine [Remeron] 15 MG PO daily 0 December 09, 2016 Active Apixaban [Eliquis] 5 MG PO twice a day 60 March 20, 2017 Active Docusate Sodium [Colace] 100 MG PO twice a day PRN For CONSTIPATION 0 October 09, 2017 Active Escitalopram Oxalate [Lexapro] 20 MG PO daily 30 2018 Active Quetiapine Fumarate 200 MG PO once at bedtime 0 2018 Active Sennosides [Senna] 8.6 MG PO .prn PRN 0 June 08 9 Active Discontinued Medications Medication Dose Units Route Sig Qty Start Date Discontinued Valdez e Status Instructions Metolazone 2.5 MG PO daily August 18, 2017 May 13 19 Discontinued Metolazone 7.5 MG PO daily May 13, 2018 June 08 019 Discontinued Hypromellose/Pf [Retaine Hpmc 0.3% Eye Drops] 1 DRP o phthalmic (eye) daily PRN May 13, 2018 June 08, 2018 Discontinued Tolnaftate 1 APPLIC Topical one time only October 06, 2017 [facility] 2018 Discontinued Diltiazem Hcl [Tiazac] 240 MG PO daily October 09, 018 June 08, 2018 Discontinued Guaifenesin [Tussin Mucus-Chest Congestion] 200 MG PO Q4H PRN October 09, 2017 June 08, 2018 Discontinued Oseltamivir Phosphate [Tamiflu] 75 MG PO daily June 08, 2018 August 18, 2018 Discontinued Magnesium Oxide [Magnesium] 400 MG PO twice a day June 08, 2018 August 18, 2018 Discontinued Peg 400/Hypromellose/Glycerin [Sm Dry Eye Relief Eye Drops] 1 DRP ophthalmic (eye) three times a day PRN June 08, 2018 August 18, 2018 Discontin ued Aspirin (Aspirin 81 Mg) 81 MG PO daily 0 October 17, 2011 June 23, 2012 Discontinued Digoxin 0.125 MCG PO daily 0 October 17, 2011 July 11, 2013 Di scontinued Diltiazem Hcl 180 MG PO twice a day 0 October 17, 2011 March 17, 2013 Discontinued Docusate Sodium [Colace] 100 MG PO twice a day 0 OctDecember 20, 2012 Discontinued Famotidine [Pepcid] 20 MG PO daily 0 October 17, 2011 October 16, 2014 Discontinued Metoprolol Tartrate [Lopressor] 25 MG PO twice a day 0 October 17, 2011 December 12, 2015 Discontinued Rivaroxaban [Xarelto] 20 MG PO daily 0 October 16 012 March 20, 2017 Discontinued Oxybutynin Chloride 5 MG PO three times a day 0 Ju ly 2011October 15, 2016 Discontinued Furosemide [Lasix] 40 MG PO daily 30 December 25, 2011 February 16, 2015 Discontinued Ipratropium/Albuterol Sulfate (Duoneb 0.5 mg-3 mg/3 ml Soln) 3 ML IH twice a day 0 December 25, 2011 June 23, 2012 Discontinued Triamcinolone Acetonide 1 APPL TP three times a day 1 December 25, 2011 June 23, 2012 Discontinued Cyanocobalamin (Vitamin B-12) [Vitamin B-12] 2000 MCG PO daily 30 June 23, 2012 June 08, 2018 Discontinued Potassium Chloride 30 MEQ PO daily 30 June 23, 2012 August 18, 2017 Discontinued Diltiazem Hcl [Diltiazem 24hr Er] 240 MG PO daily 0 December 20, 2012 October 09, 2017 Discontinued Escitalopram Oxalate [Lexapro] 20 MG PO daily 30 S epte2012June 08, 2018 Discontinued Hypromellose (Artificial Tears) 15 ML OP four times daily 0 December 20, 2012 February 16, 2015 Discontinued Lisinopril 5 MG PO every day at bedtime 30 r 2012October 16, 2014 Discontinued Mirtazapine [Remeron] 15 MG PO every day at bedtime 30 December 20, 2012 October 15, 2016 Discontinued Polyethylene Glycol 3350 [Miralax] 17 GM PO twice daily as needed 0 December 20, 2012 February 16, 2015 Discontinued Psyllium Husk/Aspartame [Metamucil Fiber Singles Packet] 3.4 GM PO daily 0 December 20, 2012 August 15, 2015 Discontinued Sennosides [Senna] 8.6 MG PO twice a day 0 December 20, 2012 June 08, 2018 Discontinued Ergocalciferol (Vitamin D2) [Vitamin D2] 83232 UNIT PO DIRECTED July 18, 2013 October 16, 2014 Discontinued One capsule weekly f or four weeks, then One capsule monthly for 8 months Lisinopril 2.5 MG PO daily 90 October 16, 2014 October 15, 2016 Discontinued Docusate Sodium [Colace] 100 MG PO daily PRN For CONSTIPAT ION 0 October 16, 2014 October 09, 2017 Discontinued Quetiapine Fumarate [Seroquel] 25 MG PO daily 0 2014February 16, 2015 Discontinued Famotidine 20 MG PO daily 1 February 14, 2015 August 14, 016 Discontinued Oxybutynin Chloride 5 MG PO three times a day 60 No vember 2014June 11, 2015 Discontinued Tamsulosin Hcl [Flomax] 0.4 MG PO daily 30 February 14, 2015 May 01, 2017 Discontinued Nystatin 1 APPL TP twice a day 1 February 14, 2015August Discontinued Tolnaftate [Tinactin] 1 SPRAY TP twice a day [facility] 2014August 05, 2016 Discontinued Hypromellose (Artificial Tears) 15 ML OP as needed 0 February 16, 2015 May 13, 2018 Discontinued Quetiapine Fumarate 300 MG PO daily 0 February 16, 2015 June 08, 2018 Discontinued Furosemide 80 MG PO daily 0 February 16, 2015 October 09, 2 018 Discontinued Cyanocobalamin (Cyanocobalamin 1000MCG\Ml*) 1000 MCG IJ unsure of dose 0 August 15, 2015 December 12, 2015 Discontinued Loperamide Hcl/Simethicone [Imodium Multi-Symptom Rel Cplt] 1 EACH PO DIRECTED 0 August 15, 2015 October 06, 2017 Discontinued Metoprolol Tartrate 12.5 MG PO twice a day 30 Septemb r 2015October 15, 2016 Discontinued Nystatin 1 APPL TP DIRECTED August 05, 2016 May 13, 2018 Discontinued Promethazine Hcl 25 MG PO DIRECTED 0 August 05, 2016 March 20, 2017 Discontinued Dextromethorphan Hbr [Wal-Tussin] 15 MG PO unsure of dose 0 October 15, 2016 March 20, 2017 Discontinued Fluticasone Propionate (Flonase OTC Allergy Relief (120SPRY)) 1 SPRAY NA twice a day 15.8 October 15, 2016 May 13, 2018 Discontinued Montelukast Sodium [Singulair] 10 MG PO daily 30 S eptember 2016May 13, 2018 Discontinued Ergocalciferol (Vitamin D2) [Vitamin D2] 66899 UNIT PO DIRECTED February 04, 2017 October 06, 2017 Discontinued One capsule weekly f or four weeks, then One capsule monthly for 5 months, for a total of six months of therapy Digoxin 250 MCG PO daily May 01, 2017 October 06, 2017 Discontinued Potassium Chloride 30 MEQ PO daily August 18, 2017October Discontinued Furosemide 40 MG PO twice a day 0 October 09, 2017 June 08, 2018 Discontinued Potassium Chloride 40 MEQ PO twice a day October 09June 08, 2018 Discontinued Furosemide 20 MG PO daily 0 June 08, 2018 August 18, 2018 Discontinued Potassium Chloride 30 MEQ PO three times a day Jun 2018August 18, 2018 Discontinued Problem List Active Problems Medical Problem Onset Date Status Acute renal failure syndrome October 17, 2011 Active CKD (chronic kidney disease) stage 3, GFR 30-59 ml/min Active Permanent atrial fibrillation Active HTN, goal below 140/90 Active S/P cholecystectomy Active Hx of vasectomy Active Hypertension Active Cardiomyopathy Active Ankle edema, bilateral Active Hyperkalemia October 17, 2011 Active Inactive/Resolved Problems Medical Problem Onset Date Status History of acute renal failure Resolved Prostate cancer Inactive Anxiety Inactive A-fib Inactive Schizophrenia Inactive Constipation Inactive Procedures No known history of procedures. Reason for Referral Referral information is unavailable. Relevant Diagnostic Tests and/or Laboratory Data No known relevant diagnostic tests, laboratory data, and/or discharge summary. Chief Complaint and Reason for Visit Encounter Admit Date Chief Complaint Reason for Visit Departed Physician/Provider Office Visit December 07, 2018 9 :39am 6 mo f/u no prior testing Hospital Discharge Instructions No known hospital discharge instructions. Hospital Discharge Medications Medication Dose Units Route Sig Qty Days Order Date Status In structions Metolazone 2.5 MG PO daily August 18, 2017 Discont inued Metolazone 7.5 MG PO daily May 13, 2018 Dis continued Simethicone 250 MG PO twice a day May 13 Active Menthol 5 MG Mucous Membrane .PRN May 13 19 Active Fluticasone Propionate Nasal 1 SPRAY Intranasal twice a day May 13, 2018 Active Hypromellose/Pf 1 DRP ophthalmic (eye) daily PRN May 13, 2018 Discontinued Ondansetron Hcl 4 MG PO Q6H PRN October 06, 2017 A ctive Tolnaftate 1 APPLIC Topical one time only October 06, 2017 Discontinued Diltiazem Hcl 240 MG PO daily October 09, 2017 Disc ontinued Guaifenesin 200 MG PO Q4H PRN October 09, 2017 Disco ntinued Promethazine Hcl 25 MG PO Q6H PRN October 09, 2017 Active Metoclopramide Hcl 10 MG PO Q6H October 09, 2017 Active Diltiazem Hcl 240 MG PO daily June 08, 2018 Act braydon Guaifenesin 200 MG PO Q4H PRN June 08, 2018 Acti ve Tolnaftate 1 APPLIC Topical three times a day June 08, 2018 Active Hypromellose/Pf 1 DRP ophthalmic (eye) daily PRN 2018 Active Montelukast Sodium 10 MG PO every evening August 042018 Active Magnesium Citrate 240 ML PO daily PRN August 18 19 Active Cyanocobalamin (Vitamin B-12) 1000 MCG IM every month June 08, 2018 Active Tamsulosin Hcl 0.4 MG PO daily June 08, 2018 Ac tive Oseltamivir Phosphate 75 MG PO daily June 08, 2018 Discontinued Magnesium Oxide 400 MG PO twice a day June 08 019 Discontinued Peg 400/Hypromellose/Glycerin 1 DRP ophthalmic (eye) three anibal es a day PRN June 08, 2018 Discontinued Aspirin (Aspirin 81 Mg) 81 MG PO daily 0 October Discontinued Digoxin 0.125 MCG PO daily October 17, 2011 Discontin ued Diltiazem Hcl 180 MG PO twice a day October 16 2 Discontinued Docusate Sodium 100 MG PO twice a day 0 October 16 012 Discontinued Famotidine 20 MG PO daily 0 October 17, 2011 Discon tinued Metoprolol Tartrate 25 MG PO twice a day October 042011 Discontinued Rivaroxaban 20 MG PO daily 0 October 17, 2011 Disco ntinued Atorvastatin Calcium 40 MG PO every day at bedtime October 17, 2011 Active Oxybutynin Chloride 5 MG PO three times a day 0 October 17, 2011 Discontinued Furosemide 40 MG PO daily December 25, 2011 D iscontinued Ipratropium/Albuterol Sulfate (Duoneb 0.5 mg-3 mg/3 ml Soln) 3 ML IH twice a day December 25, 2011 Discontinued Triamcinolone Acetonide 1 APPL TP three times a day December 25, 2011 Discontinued Aripiprazole 30 MG PO daily 0 June 23, 2012 Act braydon Cyanocobalamin (Vitamin B-12) 2000 MCG PO daily June 23, 2012 Discontinued Potassium Chloride 30 MEQ PO daily June 23 13 Discontinued Acetaminophen 1 - 2 TAB PO every 4-6 hours as needed 0 December 20, 2012 Active Diltiazem Hcl 240 MG PO daily December 20 3 Discontinued Escitalopram Oxalate 20 MG PO daily December 20, 2012 Discontinued Hypromellose (Artificial Tears) 15 ML OP four times daily 0 December 20, 2012 Discontinued Lisinopril 5 MG PO every day at bedtime 30 hemanth 2012 Discontinued Magnesium Hydroxide 30 ML PO daily as needed 0 ptember 2012 Active Mirtazapine 15 MG PO every day at bedtime 30 mber 2012 Discontinued Polyethylene Glycol 3350 17 GM PO twice daily as needed 0 December 20, 2012 Discontinued Psyllium Husk/Aspartame 3.4 GM PO daily 0 er 2012 Discontinued Sennosides 8.6 MG PO twice a day 0 December 20 013 Discontinued Ergocalciferol (Vitamin D2) 06971 UNIT PO DIRECTED July 18, 2013 Discontinued One capsule weekly for four weeks, then One capsule monthly for 8 months Lisinopril 2.5 MG PO daily October 16, 2014 Discon tinued Docusate Sodium 100 MG PO daily PRN For CONSTIPATION 0 October 16, 2014 Discontinued Quetiapine Fumarate 25 MG PO daily 0 October 16 15 Discontinued Famotidine 20 MG PO daily February 14, 2015 Di scontinued Oxybutynin Chloride 5 MG PO three times a day 60 February 14, 2015 Discontinued Tamsulosin Hcl 0.4 MG PO daily February 14 5 Discontinued Nystatin 1 APPL TP twice a day February 14, 2015 Discontinued Tolnaftate 1 SPRAY TP twice a day February 14 15 Discontinued Hypromellose (Artificial Tears) 15 ML OP as needed February 16, 2015 Discontinued Quetiapine Fumarate 300 MG PO daily February Discontinued Furosemide 80 MG PO daily 0 February 16, 2015 Di scontinued Polyethylene Glycol 3350 17 GM PO daily 0 Novem er 2014 Active Cyanocobalamin (Cyanocobalamin 1000MCG\Ml*) 1000 MCG IJ unsu re of dose 0 August 15, 2015 Discontinued Loperamide Hcl/Simethicone 1 EACH PO DIRECTED 0 August 15, 2015 Discontinued Ranitidine Hcl 150 MG PO twice a day August 14 6 Active Metoprolol Tartrate 12.5 MG PO twice a day 30 2015 Discontinued Nystatin 1 APPL TP DIRECTED August 05, 2016 Disco ntinued Promethazine Hcl 25 MG PO DIRECTED August 05 17 Discontinued Dextromethorphan Hbr 15 MG PO unsure of dose 0 Ju 2016 Discontinued Fluticasone Propionate (Flonase OTC Allergy Relief (120SPRY)) 1 SPRAY NA twice a day 15.8 October 15, 2016 Discontinued Mirtazapine 15 MG PO daily 0 December 09, 2016 A ctive Montelukast Sodium 10 MG PO daily December 09, 2016 Discontinued Ergocalciferol (Vitamin D2) 80344 UNIT PO DIRECTED February 04, 2017 Discontinued One capsule weekly for four weeks, then One capsule monthly for 5 months, for a total of six months of therapy Apixaban 5 MG PO twice a day 60 March 20, 2017 Active Digoxin 250 MCG PO daily May 01, 2017 Discon tinued Potassium Chloride 30 MEQ PO daily August 18, 2017 Discontinued Furosemide 40 MG PO twice a day 0 October 09, 2017 Di scontinued Potassium Chloride 40 MEQ PO twice a day October 09, 2017 Discontinued Docusate Sodium 100 MG PO twice a day PRN For CONSTIPATION 0 October 09, 2017 Active Furosemide 20 MG PO daily 0 June 08, 2018 Discon tinued Escitalopram Oxalate 20 MG PO daily June 08 019 Active Quetiapine Fumarate 200 MG PO once at bedtime 0 [facility] 2018 Active Potassium Chloride 30 MEQ PO three times a day 30 M 2018 Discontinued Sennosides 8.6 MG PO .prn PRN 0 June 08, 2018 Acti ve Encounters Encounter Facility Location Admit/Visit Date Discharge/Departure Date Attending Provider Departed Physician/Provider Office Visit [facility] December 07, 2018 9:39am December 07, 2018 9:45am Abby Escobar Departed Physician/Provider Office Visit [facility] [place] December 07, 2018 6:05am December 07, 2018 1:20pm Manuel Gerardo Departed Physician/Provider Office Visit [facility] August 18, 2018 10:52am August 18, 2018 11:32am Lamar, Bed Registered Inpatient [facility] August 17, 2018 11:59pm Lamar, Bed Registered Inpatient [facility] July 28, 2018 11:59pm Manuel Gerardo Departed Physician/Provider Office Visit [facility] [place] June 08, 2018 6:22am June 08, 2018 2:26pm Manuel Gerardo Departed Physician/Provider Office Visit [facility] May 11, 2018 9:39am May 11, 2018 9:45am Abby Escobar Functional Status No known functional status. Immunizations No known immunizations. Payers Payer Name Policy Type Covered Libertarian Covered Libertarian Id Relationship Sub scriber Subscriber Id [employer] Other Valente Rempe [id number] Self / Same A s Patient Valente Rempe [id number] Medicare Medicare Valente Rempe [id number] Self / Same As Patien t Valente Rempe [id number] Self Pay Other Plan of Care No Known Plan of Care Information Social History No known social history. Vital Signs Vital Reading Result Reference Range Collection Date/ Time Height 5 ft 10 in December 07 9:43am Weight 302 lb December 07 9:43am Temperature n/a Pulse 118 BPM 60-90 December 07 9:43am Respiration 20 RPM 12-24 December 07 1:23pm Pulse Oximetry 97 % 93-100 December 07 9:43am Blood Pressure Systolic 110 100-180 [facility] 2018 9:43am Blood Pressure Diastolic 70 60-90 [facility] 2018 9:43am Body Mass Index 43.3 December 07 9:43am
--- OUTSIDE RECORDS SUMMARY | 2019-09-03 18:59 | XMS REPORT | Continuity of Care Document ---
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 Name Role Phone Homar Kennedy PCP [phone] Abby Escobar Attphys Allergies, Adverse Reactions, Alerts [...] Topical one time only October 06, 2017 [facility] 2018 Discontinued Diltiazem Hcl [Tiazac] 240 MG [...] 18, 2017 Discontinued Diltiazem Hcl [Diltiazem 24hr Er (Cd)] 240 MG PO daily 0 December 20, [...] 2018 Discontinued Ergocalciferol (Vitamin D2) [Vitamin D2] 13773 UNIT PO DIRECTED July 18, 2013 October [...] 1 SPRAY TP twice a day 1 Novemb er 2014August 05, 2016 Discontinued Hypromellose (Artificial Tears) [...] 2018 Discontinued Ergocalciferol (Vitamin D2) [Vitamin D2] 50616 UNIT PO DIRECTED February 04, 2017 October [...] 40 MEQ PO twice a day October 09 018 June 08, 2018 Discontinued Furosemide 20 MG PO [...] MG PO twice a day May 13 19 Active Menthol 5 MG Mucous Membrane .PRN [...] Sodium 100 MG PO twice a day October 16, 012 Discontinued Famotidine 20 MG PO daily 0 October 17, 2011 Discon tinued Metoprolol Tartrate 25 MG PO twice a day October 042011 Discontinued Rivaroxaban 20 MG PO daily October 17, 2011 Disco ntinued Atorvastatin Calcium 40 MG PO every day at bedtime October 17, 2011 Active Oxybutynin Chloride 5 MG PO three times a day October 17, 2011 Discontinued Furosemide 40 MG [...] December 20 013 Discontinued Ergocalciferol (Vitamin D2) 64414 UNIT PO DIRECTED July 18, 2013 Discontinued One capsule weekly for four weeks, then One capsule monthly for 8 months Lisinopril 2.5 MG PO daily October 16, 2014 Discon tinued Docusate Sodium 100 MG PO daily PRN For CONSTIPATION 0 October 16, 2014 Discontinued Quetiapine Fumarate 25 MG PO daily October 16 15 Discontinued Famotidine 20 MG [...] Glycol 3350 17 GM PO daily 0 Novemb er 2014 Active Cyanocobalamin (Cyanocobalamin 1000MCG\Ml*) 1000 MCG IJ unsu re of dose 0 August 15, 2015 Discontinued Loperamide Hcl/Simethicone 1 EACH PO DIRECTED August 15, 2015 Discontinued Ranitidine Hcl 150 MG PO twice a day August 14 6 Active Metoprolol Tartrate 12.5 MG PO twice a day 30 Sept2015 Discontinued Nystatin 1 APPL TP DIRECTED August [...] December 09, 2016 Discontinued Ergocalciferol (Vitamin D2) 32568 UNIT PO DIRECTED February 04, 2017 Discontinued [...] 200 MG PO once at bedtime 0 [facility] 2018 Active Potassium Chloride 30 MEQ PO three times a day 30 M 2018 Discontinued Sennosides 8.6 MG PO .prn PRN 0 June 08, 2018 Acti ve Encounters Encounter Facility Location Admit/Visit Date Discharge/Departure Date Attending Provider Registered Inpatient [facility] December 14, 2018 11:59pm Manuel Gerardo Departed Physician/Provider Office Visit [facility] December 07, 2018 9:39am December 07, 2018 9:45am Abby Escobar Departed Physician/Provider Office Visit [facility] December 07, 2018 6:05am December 07, 2018 1:20pm Manuel Gerardo Departed Physician/Provider Office Visit [facility] August 18, 2018 10:52am August 18, 2018 11:32am Lmaar, Bed Registered Inpatient [facility] August 17, 2018 11:59pm Lamar, Bed Registered Inpatient [facility] July 28, 2018 11:59pm Manuel Gerardo Departed Physician/Provider Office Visit [facility] [place] June 08, 2018 6:22am June 08, 2018 2:26pm Manuel Gerardo Departed Physician/Provider Office Visit [facility] May 11, 2018 9:39am May 11, 2018 9:45am Abby Escobar Functional Status No known functional status. Immunizations No known immunizations. Payers Payer Name Policy Type Covered Republican Covered Republican Id Relationship Sub scriber Subscriber Id [facility] [employer] Other Valente Rempe [id number] Self / Same A s Patient Valente Rempe [id number] Medicare Medicare Valente Rempe [id number] Self / Same As Patien t Valente Rempe [id number] Self Pay Other Plan of Care No Known Plan of Care Information Social History No known social history. Vital Signs Vital Reading Result Reference Range Collection Date/ Time Height 5 ft 10 in December 07 9:43am Weight 302 lb December 07 9:43am Temperature n/a Pulse 118 BPM 60-90 December 07 9:43am Respiration 20 RPM -December 07 1:23pm Pulse Oximetry 97 % 93-100 December 07 9:43am Blood Pressure Systolic 110 100-180 [facility] 2018 9:43am [facility] 70 [facility] 9:[facility] Body Mass Index 43.3 December 07 9:43am
--- OUTSIDE RECORDS SUMMARY | 2019-09-03 18:59 | XMS REPORT | Continuity of Care Document ---
Author Organization Unknown Address [address] [place] [address] Phone Unavailable Care Team Providers Care Senior Government Program Analyst Name Role Phone MARSHA SRIDHAR PCP Insurance Providers Guarantor Valente Limon Jr Address [address] [place] [id number] Payer Medicare Policy Number [id number] Subscriber's Name Valente Limon Jr Relationship Self / Same [facility] [id number] Subscriber's Name Valente Limon Jr Relationship Self [...] Community Resource Use Y - lives at [facility] 3:16pm Not Applicable Not Applicable Hx Alcohol [...] information available. Plan of Care Discharge Date 08/20/17 11:59pm Prescriptions See Medication Section Functional Status [...] Slightly CLEAR 04/24/2017 11:04am 11:11am Urine Specific [place] >= 1.030 A 1.005-1.025 04/24 11:04am 04/24/2017 [...] CALCULATED AND PROVIDED RE COMMENDED BY THE [employer] USING THE FORMULA 28.7 X A1c - 46.7= eAG CT-Ldz-S-Type Natriuretic Peptide 1428 pg/mL A 0-125 04/24/2017 8:30am 04/24/2017 6:36pm Ionized Calcium 1.16 mmol/L A 1.18-1.30 04/24/2017 8:3004/07 3:22pm Testing performed at [facility], [id number] [facility], [place] [address]. Cholesterol Level 116 mg/dL <200 05/21/2017 7:4605/07 [...] Location Arrival/Admit Date [facility]charge[facility]art [facility] 8:22am 8 11:59pm [facility] 08/03/17 2:18pm 8 11:59pm SRIDHAR LARSON DO Departed [facility] 07/30/17 2:47pm 8 11:59pm SRIDHAR LARSON DO Departed [facility] 07/23/17 8:21am 8 11:59pm MARVEL BROWN MD Departed [facility] 05/21/17 7:41am 8 11:59pm SRIDHAR LARSON DO Discharged Inpatient [facility] 04/24/17 10:35a m 04/27/17 1:40SRIDHAR Luna DO Departed Emergency Room [facility] 04/24/17 7:4 0am 04/24/17 10:30am JOHNNY GANNON
--- OUTSIDE RECORDS SUMMARY | 2019-09-03 18:59 | XMS REPORT | Continuity of Care Document ---
Author Organization Unknown Address [address] [place] [id number] Phone Unavailable Care Team Providers Care Rating Clerk Name Role Phone MARSHA SRIDHAR PCP Insurance Providers Guarantor Valente Limon Jr Address [address] [place] [id number] Payer Medicare Policy Number [id number] Subscriber's Name Valente Limon Jr Relationship Self / Same As Patient [facility] Policy Number [id number] Subscriber's Name Valente Limon Jr Relationship Self [...] Community Resource Use Y - lives at [facility] 06/2017 2:00pm Not Applicable Not [...] information available. Plan of Care Discharge Date 09/18/17 11:59pm Prescriptions See Medication Section Functional Status [...] Blood Count 4.05 x10^6/uL A 4.60-6.20 09/10/2017 6:27am 10/2017 7:44am Hemoglobin 13.0 g/dl A 13.5-18.0 09/10/2017 6:27am 8 7:44am Hematocrit 38.1 % A 40.0-50.0 09/10/2017 6:27am 8 7:44am Mean Corpuscular Volume 94 fL 82-96 09/10/2017 6:27a m 09/10/2017 7:44am Mean Corpuscular Hemoglobin 32.1 pg 28.0-33.0 6:am 09/10/2017 7:44am Mean Corpuscular Hemoglobin Concent 34.1 g/dL 32.0 -36.0 09/10/2017 6:am 09/10/2017 7:44am RDW Coefficient of Variation 14.9 % A 11.5-14.5 0 09/10/2017 6:am 09/10/2017 7:44am RDW Standard Deviation 48.3 fL A 35.1-43.9 09/10/2017 6:27 am 09/10/2017 7:44am Platelet Count 255 x10^3/uL 150-400 09/10/2017 6:am 2017 7:44am Mean Platelet Volume 8.2 fL 7.0-11.0 09/10/2017 6:am 09/10/2017 7:44am Neutrophils (%) (Auto) 69.2 % 40.0-79.0 09/10/2017 6:27 am 09/10/2017 7:44am Lymphocytes (%) (Auto) 21.7 % 10.0-50.0 09/10/2017 6:27 am 09/10/2017 7:44am Monocytes (%) (Auto) 6.6 % 3.0-13.0 09/10/2017 6:am 09/10/2017 7:44am Eosinophils (%) (Auto) 2.3 % 1.0-3.0 09/10/2017 6:am 09/10/2017 7:44am Basophils (%) (Auto) 0.2 % [...] CLEAR 09/08/2017 7:34pm 09/08 9:35pm Urine Specific [place] 1.015 1.005-1.025 09/08 7:34pm 09/08/2017 9:35pm Urine pH 6.5 5.0-7.0 09/08/2017 7:34pm 09/08/2017 9: 35pm Urine Glucose Negative NEGATIVE 09/08/2017 7:34pm 2017 9:35pm Urine Bilirubin Moderate NEGATIVE 09/08/2017 7:34pm 08/2017 9:35pm Urine Ketones 15 A NEGATIVE 09/08/2017 7:34pm 018 9:35pm Urine Protein Confirmation 3+ NEGATIVE 09/08/2017 7 :34pm 09/08/2017 9:35pm Urine RBC (Auto) Large A NEGATIVE 09/08/2017 7:34pm 08/2017 9:35pm Urine Urobilinogen 1.0 mg/dL 0.2-1.0 [...] Cholesterol Level 99 mg/dL <200 09/07/2017 5:58am 06/07/2017 6:56am Triglycerides Level 105 mg/dL <150 09/07/2017 [...] AND REPEATED BACK BY:RENATO DRAKE RN [], LOCATION:[facility] [], 09/07/17, 0652, MMARRS Clostridium Difficile Toxin A & B NEGATIVE NEGATI VE 09/09/2017 8:19am 09/09/2017 9:17am Digoxin Level 1.8 ng/mL 0.90-2.0 09/10/2017 6:28am 018 7:56am Stool Culture (LAB) CNCTY RESULT RECEIVE 09/09/2017 8:19am 09/12/2017 12:11pm PLEASE REFER TO HARD COPY FOR RESULTS. Specimen sent for testing to: [address] [address] Ova and Parasites (LAB) KDHE RESULT RECEIVED 09/09/2017 8:19am 09/17/2017 9:29am PLEASE REFER TO HARD COPY FOR RESULTS. Specimen sent for testing to: [facility] [address] [place] [address] Albumin 3.6 g/dL 3.4-5.0 09/17/2017 11:15am 09/17/2017 11 :40am Total Protein 7.9 g/dL 6.4-8.2 09/17/2017 11:15am 018 11:40am Globulin 4.3 g/dL 2.0-5.0 09/17/2017 11:15am 09/17/2017 1 1:40am Albumin/Globulin Ratio 0.8 A 1.1-2.5 09/17/2017 11:15a m 09/17/2017 11:40am Total Bilirubin 0.5 mg/dL 0.2-1.0 09/17/2017 11:15am 09/17 11:40am Direct Bilirubin 0.2 mg/dL 0.0-0.2 09/17/2017 11:15am 0607/2017 11:40am Alkaline Phosphatase 153 U/L A 46-116 09/17/2017 11:15am 09/17/2017 11:40am Alanine Aminotransferase (ALT/SGPT) 27 U/L 12-7 8 09/17/2017 11:15am 09/17/2017 11:40am Aspartate Amino Transf (AST/SGOT) 21 U/L 15-37 09/17/2017 11:15am 09/17/2017 11:40am Glucose Level 121 mg/dL A 74-106 09/18/2017 2:22pm 09/19/19 18 2:47pm Blood Urea Nitrogen 25 mg/dL A 7-18 09/18/2017 2:22pm 2:47pm Creatinine 1.6 mg/dL A 0.6-1.3 09/18/2017 2:22pm 09/18/2017 2:47pm BUN/Creatinine Ratio 15.3 RATIO 09/18/2017 2:22pm 0 09/18/2017 2:47pm Calcium Level 9.5 mg/dL 8.5-10.1 09/18/2017 2:pm 018 2:47pm Sodium Level 137 mmol/l 136-145 09/18/2017 2: 8 2:47pm Potassium Level 2.6 mmol/L CL 3.5-5.1 09/18/2017 2:pm 2017 2:47pm CRITICAL RESULT VERIFIED BY REPEAT ANALYSIS AND/OR DILUTION CALLED TO AND REPEATED BACK BY: MANDA PALMA LOCATION: [facility], 09/18/17, 1447[facility] Chloride Level 97 mmol/L A 98-107 09/18/2017 2:pm 018 2:47pm Carbon Dioxide Level 33.6 mmol/L A 21.0-32.0 8 2:pm 09/18/2017 2:47pm Glomerular Filtration Rate Calc 46.48 mL/min >60 09/18/2017 2:pm 09/18/2017 2:47pm Magnesium Level 2.0 mg/dL 1.8-2.4 09/18/2017 2:pm 2017 2:47pm Procedures No procedure information available. Encounters Encounter Location Arrival/Admit Date Discharge/Depart Date Attending Provider Departed Clinic [facility] 09/18/17 2:21pm 8 11:59pm SRIDHAR LARSON DO Departed Clinic [facility] 09/17/17 11:05am 11:59pm SRIDHAR LARSON DO Discharged Inpatient [facility] 09/06/17 1:10pm 09/10/17 5:40pm SRIDHAR LARSON DO Departed Emergency Room [facility] 09/06/17 10: 25am 09/06/17 1:10pm GARCIA MARKHAM MD Departed Clinic [facility] 08/28/17 3:04pm 8 11:59pm SRIDHAR LARSON DO Departed [facility] 08/20/17 8:22am 8 11:59pm RUBSANDY SRIDHAR Departed [facility] 08/03/17 2:18pm 8 11:59pm RUBENTHALESRIDHAR Bobby Departed [facility] 07/30/17 2:47pm 8 11:59pm [facility] 07/23/17 8:21am 8 11:59pm MARVEL BROWN MD
[2019-09-03] MEDS ORDERED: LIDOCAINE UROJET 2% GEL 10 ML PKG TOP ONE (19:00)
--- OUTSIDE RECORDS SUMMARY | 2019-09-03 19:00 | XMS REPORT | Continuity of Care Document ---
[facility] Address [address] [place] [address] Care Team Providers Care Supervisor Rides Name Role Phone Homar Kennedy PCP [phone] [place], Bed Attphys Homar Kennedy PCP [place], Bed Attphys Allergies, Adverse Reactions, Alerts No known allergies. Medications Active Medications Medication Dose Units Route Sig Qty Start Date Status In structions Simethicone [Phazyme] 250 MG PO twice a day 2018 Active Menthol [Cough Drops] 5 MG Mucous Membrane .PRN 2018 Active Fluticasone Propionate Nasal 1 SPRAY Intranasal [...] Topical three times a day June 08 Active Hypromellose/Pf [Retaine Hpmc 0.3% Eye Drops] [...] Topical one time only October 06, 2017 [facility] 2018 Discontinued Diltiazem Hcl [Tiazac] 240 MG PO daily October 09 018 June 08, 2018 Discontinued Guaifenesin [Tussin [...] [Lexapro] 20 MG PO daily 30 S ep2012June 08, 2018 Discontinued Hypromellose (Artificial Tears) 15 ML OP four times daily 0 December 20, 2012 February 16, 2015 Discontinued Lisinopril 5 MG PO every day at bedtime 30 2012October 16, 2014 Discontinued Mirtazapine [Remeron] 15 [...] 2018 Discontinued Ergocalciferol (Vitamin D2) [Vitamin D2] 86358 UNIT PO DIRECTED July 18, 2013 October [...] 1 SPRAY TP twice a day 1 2014August 05, 2016 Discontinued Hypromellose (Artificial Tears) [...] 12.5 MG PO twice a day 30 2015October 15, 2016 Discontinued Nystatin 1 APPL [...] 2018 Discontinued Ergocalciferol (Vitamin D2) [Vitamin D2] 12234 UNIT PO DIRECTED 9 February 04, 2017 October 06, 2017 Discontinued One capsule weekly f or four weeks, then One capsule monthly for 5 months, for a total of six months of therapy Digoxin 250 MCG PO daily May 01, 2017 October 06, 2017 Discontinued Potassium Chloride 30 MEQ PO daily 30 August 18, 2017October Discontinued Furosemide 40 MG PO twice a day 0 October 09, 2017 June 08, 2018 Discontinued Potassium Chloride 40 MEQ PO twice a day October 09 018 June 08, 2018 Discontinued Furosemide 20 MG PO daily 0 June 08, 2018 August 18, 2018 Discontinued Potassium Chloride 30 MEQ PO three times a day 30 Jun 2018August 18, 2018 Discontinued Problem List [...] unavailable. Relevant Diagnostic Tests and/or Laboratory Data Laboratory Results Test Date/Time Result Interp. Ref. Range Result Comment Bedside Urine Clarity August 18, 2017 11:32am CLEAR (N=CLEAR) Bedside Urine Color (LAB) August 18, 2017 11:32am DARK STRAW (N=CLEAR) Bedside Urine Specific [place] (LAB August 18, 2017 11:32am 1.010(N=1. 000-1.025) Bedside Urine pH (LAB) August 18, 2017 11:32am 6.5 (N=5.0-6.0) Bedside Urine Leukocyte Esterase (L August 18, 2017 11:32am NEGATIVE (N= NEG) Bedside Urine Nitrite (LAB) August 18, 2017 11:32am NEGATIVE (N=NEG) Bedside Urine Protein (LAB) August 18, 2017 11:32am TRACE (N=NEG) Bedside Urine Glucose (UA) August 18, 2017 11:32am NORMAL (N=NORMAL) Bedside Urine Ketones (LAB) August 18, 2017 11:32am NEGATIVE (N=NEG) Bedside Urine Urobilinogen (LAB) August 18, 2017 11:32am NORMAL (N=CIRA L) Bedside Urine Bilirubin (LAB) August 18, 2017 11:32am NEGATIVE (N=NEG) Bedside Urine Occult Blood (LAB) August 18, 2017 11:32am NEGATIVE (N=NEG ) Urine Microalbumin mg/dl August 18, 2017 1:52pm 0.9 mg/dL Urine Creatinine (Albumin) August 18, 2017 1:52pm 186.66 mg/dL Urine Microalbumin/Creatinine Ratio August 18, 2017 1:52pm 5 mg/g The ADA (Diabetes Care 26:S94-S98,2003) defines abnormalities in albumin excretion as follows: CATEGORY (RESULT mg/g CREATININE) Normal <30 Microalbuminuria 30-299 Clinical Albuminuria > or = 300 The ADA recommends that at least two of three specimens collected within a 3-6 month period be abnormal before considering a patient to be within a diagnostic category. Chief Complaint and Reason for Visit Encounter Admit Date Chief Complaint Reason for Visit Departed Physician/Provider Office Visit August 18, 2018 10:52a m Chronic kidney disease Hospital Discharge Instructions No known hospital discharge [...] (Aspirin 81 Mg) 81 MG PO daily October Discontinued Digoxin 0.125 MCG PO daily October 17, 2011 Discontin ued Diltiazem Hcl 180 MG PO twice a day October 16 2 Discontinued Docusate Sodium 100 MG PO twice a day October 16 012 Discontinued Famotidine 20 MG PO daily October 17, 2011 Discon tinued Metoprolol Tartrate [...] 2011 Discontinued Aripiprazole 30 MG PO daily June 23, 2012 Act braydon Cyanocobalamin (Vitamin B-12) 2000 MCG PO daily June 23, 2012 Discontinued Potassium Chloride 30 MEQ PO daily June 23 13 Discontinued Acetaminophen 1 - 2 TAB PO every 4-6 hours as needed 0 December 20, 2012 Active Diltiazem Hcl 240 MG PO daily 0 December 20 3 Discontinued Escitalopram Oxalate 20 [...] 17 GM PO twice daily as needed December 20, 2012 Discontinued Psyllium Husk/Aspartame 3.4 GM PO daily 0 er 2012 Discontinued Sennosides 8.6 MG PO twice a day December 20 013 Discontinued Ergocalciferol (Vitamin D2) 98811 UNIT PO DIRECTED July 18, 2013 Discontinued One capsule weekly for four weeks, then One capsule monthly for 8 months Lisinopril 2.5 MG PO daily October 16, 2014 Discon tinued Docusate Sodium 100 MG PO daily PRN For CONSTIPATION October 16, 2014 Discontinued Quetiapine Fumarate 25 [...] February Discontinued Furosemide 80 MG PO daily February 16, 2015 Di scontinued Polyethylene Glycol 3350 17 GM PO daily 0 2014 Active Cyanocobalamin (Cyanocobalamin 1000MCG\Ml*) 1000 MCG IJ unsu re of dose August 15, 2015 Discontinued Loperamide Hcl/Simethicone 1 [...] 15 MG PO unsure of dose 0 2016 Discontinued Fluticasone Propionate (Flonase OTC Allergy Relief (120SPRY)) 1 SPRAY NA twice a day 15.8 October 15, 2016 Discontinued Mirtazapine 15 MG PO daily 0 December 09, 2016 A ctive Montelukast Sodium 10 MG PO daily December 09, 2016 Discontinued Ergocalciferol (Vitamin D2) 69095 UNIT PO DIRECTED February 04, 2017 Discontinued [...] MG PO once at bedtime 0 [facility] 2018 Active Potassium Chloride 30 MEQ PO three times a day 30 M 2018 Discontinued Sennosides 8.6 MG PO .prn PRN 0 June 08, 2018 Acti ve Encounters Encounter Facility Location Admit/Visit Date Discharge/Departure Date Attending Provider Departed Physician/Provider Office Visit [facility] August 18, 2018 10:52am August 18, 2018 11:32am Lamar, Bed Registered Inpatient [facility] August 17, 2018 11:59pm Lamar, Bed Registered Inpatient [facility] July 28, 2018 11:59pm Manuel Gerardo Departed Physician/Provider Office Visit [facility] Dee June 08, 2018 6:22am June 08, 2018 2:26pm Manuel Gerardo Departed Physician/Provider Office Visit [facility] May 11, 2018 9:39am May 11, 2018 9:45am Abby Escobar Registered Inpatient [facility] October 22, 2017 9:53am Rebeca Dubois Departed Physician/Provider Office Visit [facility] October 06, 2017 2:42pm October 06, 2017 3:00pm Luz, Abby Departed Physician/Provider Office Visit [facility] October 06, 2017 8:50am October 06, 2017 12:50pm Manuel Gerardo Registered Inpatient [facility] [place] [facility] October 02, 2017 11:59pm Luz, Abby Registered Inpatient [facility] August 18, 2017 1:49pm Chhatkuli, Bed Departed Physician/Provider Office Visit [facility] August 18, 2017 11:11am August 18, 2017 11:57am Chhatkuli, Bed Functional Status No known functional status. Immunizations No known immunizations. Payers Payer Name Policy Type Covered Constitution Party Covered Constitution Party Id Relationship Sub scriber Subscriber Id [facility] [employer] Other Valente Rempe [id number] Self / Same A s Patient Valente Rempe [id number] Medicare Medicare Valente Rempe [id number] Self / Same As Patien t Valente Rempe [id number] Self Pay Other Plan of Care No Known Plan of Care Information Social History No known social history. Vital Signs Vital Reading Result Reference Range Collection Date/ Time Height 5 ft 8 in August 18, 2018 11: 11am Weight 313 lb August 18, 2018 11: 11am Temperature n/a Pulse 55 BPM 60-90 August 18, 2018 11: 11am Respiration 20 RPM 12-August 18, 2018 11: 11am Pulse Oximetry 98 % 93-100 August 18, 2018 11: 11am Blood Pressure Systolic 112 100-180 August 18, 2018 11:15am Blood Pressure Diastolic 60 60-90 August 18, 2018 11:15am Body Mass Index 47.5 August 18, 2018 11: 11am
--- OUTSIDE RECORDS SUMMARY | 2019-09-03 19:00 | XMS REPORT | Continuity of Care Document ---
[facility] Address [address] [place] [address] Care Team Providers Care Quarter Folder Name Role Phone Homar Kennedy PCP [place], Bed Attphys Homar Kennedy PCP [phone] [place], Bed Attphys Allergies, Adverse Reactions, Alerts [...] one time only October 06, 2017 [facility] 2018 Discontinued Diltiazem Hcl [Tiazac] 240 MG [...] 2018 Discontinued Ergocalciferol (Vitamin D2) [Vitamin D2] 55674 UNIT PO DIRECTED July 18, 2013 October [...] 2018 Discontinued Ergocalciferol (Vitamin D2) [Vitamin D2] 27530 UNIT PO DIRECTED 9 February 04, 2017 [...] twice a day 0 December 25, 2011 Discontinued Triamcinolone Acetonide 1 [...] MG PO every day at bedtime 30 2012 Discontinued Magnesium Hydroxide 30 ML PO daily as needed 0 2012 Active Mirtazapine 15 MG PO every day at bedtime 30 mber 2012 Discontinued Polyethylene Glycol 3350 17 GM PO twice daily as needed 0 December 20, 2012 Discontinued Psyllium Husk/Aspartame 3.4 GM PO daily 0 2012 Discontinued Sennosides 8.6 MG PO twice a day 0 December 20 013 Discontinued Ergocalciferol (Vitamin D2) 54657 UNIT PO DIRECTED July 18, 2013 Discontinued [...] OP as needed 0 February 16, 2015 Discontinued Quetiapine Fumarate 300 [...] 12.5 MG PO twice a day 30 hemanth 2015 Discontinued Nystatin 1 APPL TP DIRECTED [...] December 09, 2016 Discontinued Ergocalciferol (Vitamin D2) 02361 UNIT PO DIRECTED February 04, 2017 Discontinued [...] MG PO once at bedtime 0 [facility] 2018 Active Potassium Chloride 30 MEQ PO three times a day 30 M 2018 Discontinued Sennosides 8.6 MG PO .prn PRN 0 June 08, 2018 Acti ve Encounters Encounter Facility Location Admit/Visit Date Discharge/Departure Date Attending Provider Departed Physician/Provider Office Visit [facility] August 18, 2018 10:52am August 18, 2018 11:32am Lamar, Nasra Registered Inpatient [facility] August 17, 2018 11:59pm Lamar, Bed Registered Inpatient [facility] July 28, 2018 11:59pm Manuel Gerardo Departed Physician/Provider Office Visit [facility] June 08, 2018 6:22am June 08, 2018 2:26pm Manuel Gerardo [facility]ed [facility] May 11, 2018 9:39am May 11, 2018 9:45am Abby Escobar Registered Inpatient [facility] October 22, 2017 9:53am SilvinoKaleypatsy Departed Physician/Provider Office Visit [facility] Deba [facility] October 06, 2017 2:42pm October 06, 2017 3:00pm Abby Escobar Departed Physician/Provider Office Visit [facility] October 06, 2017 8:50am October 06, 2017 12:50pm Manuel Gerardo Registered Inpatient [facility] October 02, 2017 11:59pm Abby Escobar Functional Status No known functional status. Immunizations No known immunizations. Payers Payer Name Policy Type Covered Alliance Party Covered Alliance Party Id Relationship Sub scriber Subscriber Id [employer] Other Valente Rempe [id number] Self / Same A s Patient Valente Rempe [id number] Medicare Medicare Valente Rempe [id number] Self / Same As Patien t Valente Rempe [id number] Self Pay Other Plan of Care No Known Plan of Care Information Social History No known social history. Vital Signs Vital Reading Result Reference Range Collection Date/ Time Height 5 ft 8 in August 18, 2018 11: 11am Weight 313 lb August 18, 2018 11: 11am Temperature n/a Pulse 55 BPM 60-90 August 18, 2018 11: 11am Respiration 20 RPM 03-29August 18, 2018 11: 11am Pulse Oximetry 98 % 93-100 August 18, 2018 11: 11am Blood Pressure Systolic 112 100-180 August 18, 2018 11:15am Blood Pressure Diastolic 60 60-90 August 18, 2018 11:15am Body Mass Index 47.5 August 18, 2018 11: 11am
--- OUTSIDE RECORDS SUMMARY | 2019-09-03 19:00 | XMS REPORT | Continuity of Care Document ---
Author [facility] Address [address] [place] [address] Care Team Providers Care Button Breaker Operator Name Role Phone Homar Kennedy PCP [phone] Manuel Gerardo Attphys Allergies, Adverse Reactions, Alerts No known [...] Topical one time only October 06, 2017 [facility] 2018 Discontinued Diltiazem Hcl [Tiazac] 240 MG [...] 2018 Discontinued Ergocalciferol (Vitamin D2) [Vitamin D2] 23173 UNIT PO DIRECTED July 18, 2013 October [...] 1 SPRAY TP twice a day 1 [facility] 2014August 05, 2016 Discontinued Hypromellose (Artificial Tears) [...] 2018 Discontinued Ergocalciferol (Vitamin D2) [Vitamin D2] 36313 UNIT PO DIRECTED February 04, 2017 October [...] Departed Physician/Provider Office Visit December 07, 2018 6:05a m [facility] Hospital Discharge Instructions No known hospital discharge [...] 240 ML PO daily PRN August 18 Active Cyanocobalamin (Vitamin B-12) 1000 MCG IM [...] MG PO twice a day 0 October 16, 012 Discontinued Famotidine 20 MG [...] December 20 013 Discontinued Ergocalciferol (Vitamin D2) 01778 UNIT PO DIRECTED July 18, 2013 Discontinued [...] December 09, 2016 Discontinued Ergocalciferol (Vitamin D2) 65508 UNIT PO DIRECTED February 04, 2017 Discontinued [...] MG PO once at bedtime 0 [facility] 2018 Active Potassium Chloride 30 MEQ PO three times a day 30 M 2018 Discontinued Sennosides 8.6 MG PO .prn PRN 0 June 08, 2018 Acti ve Encounters Encounter Facility Location Admit/Visit Date Discharge/Departure Date Attending Provider Registered Physician/Provider [facility] December 07, 2018 9:39am Abby Escobar Departed Physician/Provider Office Visit [facility] December 07, 2018 6:05am December 07, 2018 1:20pm Manuel Gerardo Departed Physician/Provider Office Visit [facility] Nephrology [facility] August 18, 2018 10:52am August 18, 2018 11:32am Arnoldnery, Bed Registered Inpatient [facility] August 17, 2018 11:59pm Lamar, Bed Registered Inpatient [facility] July 28, 2018 11:59pm Manuel Gerardo Departed Physician/Provider Office Visit [facility] Dee June 08, 2018 6:22am June 08, 2018 2:26pm Manuel Gerardo Departed Physician/Provider Office Visit [facility] May 11, 2018 9:39am May 11, 2018 9:45am Abby Escobar Functional Status No known functional status. Immunizations No known immunizations. Payers Payer Name Policy Type Covered Green Party Covered Green Party Id Relationship Sub scriber Subscriber Id [employer] Other Valente Rempe [id number] Self / Same A s Patient Valente Rempe [id number] Medicare Medicare Valente Rempe [id number] Self / Same As Patien t Valente Rempe [id number] Self Pay Other Plan of Care No Known Plan of Care Information Social History No known social history. Vital Signs Vital Reading Result Reference Range Collection Date/ Time Height 5 ft 10 in December 07 9:43am Weight 302 lb December 07 9:43am Temperature n/a Pulse 118 BPM 60-90 December 07 9:43am Respiration 20 RPM -August 18, 2018 11: 11am Pulse Oximetry 97 % 93-100 December 07 9:43am Blood Pressure Systolic 110 100-180 [facility] 2018 9:43am Blood Pressure Diastolic 70 60-90 [facility] 2018 9:43am Body Mass Index 43.3 December 07 9:43am
--- OUTSIDE RECORDS SUMMARY | 2019-09-03 19:01 | XMS REPORT | Continuity of Care Document ---
Author [facility] Address [address] [place] [address] Care Team Providers Care Hot Oiler Name Role Phone Homar Kennedy PCP Manuel Gerardo Attphys Allergies, Adverse Reactions, Alerts No allergy information available. Medications Active Medications Medication Dose Units Route Sig Qty Start Date Status In structions Simethicone [Phazyme] 250 MG PO twice a day 2018 Active Menthol [Cough Drops] 5 MG Mucous Membrane .PRN bru2018 Active Fluticasone Propionate Nasal 1 SPRAY [...] times a day June 08 19 Active Cyanocobalamin (Vitamin B-12) [B-12 Compliance] 1000 MCG IM every month June 08, 2018 Active Tamsulosin Hcl [Flomax] 0.4 MG PO daily June 08, 2018 Active Oseltamivir Phosphate [Tamiflu] 75 MG PO daily June 08, 2018 Active Magnesium Oxide [Magnesium] 400 MG PO twice a day June 08, 2018 Active Peg 400/Hypromellose/Glycerin [Sm Dry Eye Relief Eye Drops] 1 DRP ophthalmic (eye) three times a day PRN June 08, 2018 Active Atorvastatin Calcium [Lipitor] [...] MG PO daily 0 June 08, 2018 Active Escitalopram Oxalate [Lexapro] 20 MG PO daily 30 2018 Active Quetiapine Fumarate 200 MG PO once at bedtime 0 2018 Active Potassium Chloride 30 MEQ PO three times a day 30 Jun 2018 Active Sennosides [Senna] 8.6 MG PO [...] Topical one time only October 06, 2017 [facility] 2018 Discontinued Diltiazem Hcl [Tiazac] 240 MG PO daily October 09, 018 June 08, 2018 Discontinued Guaifenesin [Tussin Mucus-Chest Congestion] 200 MG PO Q4H PRN October 09, 2017 June 08, 2018 Discontinued Aspirin (Aspirin 81 Mg) 81 MG PO daily 0 October 17, 2011 June 23, 2012 Discontinued Digoxin 0.125 MCG PO daily 0 October 17, 2011 July 11, 2013 Di scontinued Diltiazem Hcl 180 MG PO twice a day 0 October 17, 2011 March 17, 2013 Discontinued Docusate Sodium [Colace] 100 MG PO twice a day 0 Oct y 2011December 20, 2012 Discontinued Famotidine [Pepcid] 20 MG [...] 2018 Discontinued Ergocalciferol (Vitamin D2) [Vitamin D2] 07874 UNIT PO DIRECTED July 18, 2013 October [...] Fumarate [Seroquel] 25 MG PO daily 0 J farida 2014February 16, 2015 Discontinued Famotidine 20 MG [...] 12.5 MG PO twice a day 30 Septembe r 2015October 15, 2016 Discontinued Nystatin 1 APPL TP DIRECTED 1 August 05, 2016 May 13, 2018 Discontinued [...] 2018 Discontinued Ergocalciferol (Vitamin D2) [Vitamin D2] 44582 UNIT PO DIRECTED February 04, 2017 October [...] October 09 018 June 08, 2018 Discontinued Problem List Active Problems Medical [...] A-fib Inactive Schizophrenia Inactive Constipation Inactive Procedures Procedure Date Status MRI [id number]-[id number]-F/WO August 04, 2017 completed Reason for Referral Referral information is unavailable. Relevant Diagnostic Tests and/or Laboratory Data Laboratory Results Test Date/Time Result Interp. Ref. Range Result Comment Bedside Urine Clarity August 18, 2017 11:32am CLEAR (N=CLEAR) Bedside Urine Color (LAB) August 18, 2017 11:32am DARK STRAW (N=CLEAR) Bedside Urine Specific [place] (LAB August 18, 2017 11:32am 1.010(N=1. 000-1.025) [...] Reason for Visit Departed Physician/Provider Office Visit June 08, 2018 6:22a m 6mo/prostate cancer follow up Hospital Discharge Instructions No known hospital discharge [...] times a day June 08, 2018 Active Cyanocobalamin (Vitamin B-12) 1000 MCG IM every month June 08, 2018 Active Tamsulosin Hcl 0.4 MG PO daily June 08, 2018 Ac tive Oseltamivir Phosphate 75 MG PO daily June 08, 2018 Active Magnesium Oxide 400 MG PO twice a day June 08 019 Active Peg 400/Hypromellose/Glycerin 1 DRP ophthalmic (eye) three anibal es a day PRN June 08, 2018 Active Aspirin (Aspirin 81 Mg) 81 MG PO [...] December 20 013 Discontinued Ergocalciferol (Vitamin D2) 66199 UNIT PO DIRECTED July 18, 2013 Discontinued One capsule weekly for four weeks, then One capsule monthly for 8 months Lisinopril 2.5 MG PO daily 90 October 16, 2014 Discon tinued Docusate Sodium 100 MG PO daily PRN For CONSTIPATION 0 October 16, 2014 Discontinued Quetiapine Fumarate 25 MG PO daily 0 October 16 15 Discontinued Famotidine 20 MG PO daily February 14, 2015 Di scontinued Oxybutynin Chloride 5 MG PO three times a day 60 February 14, 2015 Discontinued Tamsulosin Hcl 0.4 MG PO daily 30 February 14 5 Discontinued Nystatin 1 APPL TP twice a day February 14, 2015 Discontinued Tolnaftate 1 SPRAY TP twice a day February 14 15 Discontinued Hypromellose (Artificial Tears) 15 ML OP as needed 0 February 16, 2015 Discontinued Quetiapine Fumarate 300 MG PO daily 0 February Discontinued Furosemide 80 MG PO daily [...] December 09, 2016 Discontinued Ergocalciferol (Vitamin D2) 50830 UNIT PO DIRECTED February 04, 2017 Discontinued [...] MG PO daily 0 June 08, 2018 Active Escitalopram Oxalate 20 MG PO daily June 08 019 Active Quetiapine Fumarate 200 MG PO once at bedtime 0 Ma [facility] 2018 Active Potassium Chloride 30 MEQ PO three times a day 30 M 2018 Active Sennosides 8.6 MG PO .prn PRN 0 June 08, 2018 Acti ve Encounters Encounter Facility Location Admit/Visit Date Discharge/Departure Date Attending Provider Departed Physician/Provider Office Visit [facility] June 08, 2018 6:22am June 08, 2018 2:26pm Manuel Gerardo Departed Physician/Provider Office Visit [facility] [place] May 11, 2018 9:39am May 11, 2018 9:45am Abby Escobar Registered Inpatient [facility] [place] October 22, 2017 9:53am Rebeca Dubois Departed Physician/[facility] [place] October 06, 2017 2:42pm October 06, 2017 3:00pm Abby Escobar Departed Physician/Provider Office Visit [facility] October 06, 2017 8:50am October 06, 2017 12:50pm Manuel Gerardo Registered Inpatient [facility] [place] October 02, 2017 11:59pm Abby Escobar Registered Inpatient [facility] [place] August 18, 2017 1:49pm Lamar, Bed Departed Physician/Provider Office Visit [facility] Nephrology [facility] August 18, 2017 11:11am August 18, 2017 11:57am Lamar, Bed Departed Clinical [facility] August 04, 2017 9:49am August 04, 2017 9:50am Homar Kennedy Departed Physician[facility] July 30, 2017 10:04am July 30, 2017 10:00am Abby Escobar Registered Inpatient [facility] July 28, 2017 11:59pm Nasra Newton Registered Inpatient [facility] 2017 11:59pm ReedBlas moy Registered Inpatient [facility] [facility] 2017 11:59pm Abby Escobar Functional Status No known functional status. Immunizations No known immunizations. Payers Payer Name Policy Type Covered Green Party Covered Green Party Id Relationship Sub scriber Subscriber Id [employer] Other Valente Rempe [id number] Self / Same A s Patient Valnete Rempe [id number] Medicare Medicare Valente Rempe [id number] Self / Same As Patien t Valente Rempe [id number] Self Pay Other Plan of Care No Known Plan of Care Information Social History No known social history. Vital Signs Vital Reading Result Reference Range Collection Date/ Time Height 5 ft 8 in May 11, 2018 9:43am Weight n/a Temperature n/a Pulse 81 BPM 60-90 June 08, 2018 2: 12pm Respiration 18 RPM 12-June 08, 2018 2: 12pm Pulse Oximetry 94 % 93-100 June 08, 2018 2: 12pm Blood Pressure Systolic 105 100-180 June 08, 2018 2:12pm Blood Pressure Diastolic 75 60-90 June 2:12pm Body Mass Index 44.5 May 11, 2018 9:43am
--- OUTSIDE RECORDS SUMMARY | 2019-09-03 19:01 | XMS REPORT | Continuity of Care Document ---
[facility] Address [address] [place] [address] Care Team Providers Care Coal Or Ore Controller Name Role Phone Homar Kennedy PCP Manuel Gerardo Attphys Allergies, Adverse Reactions, Alerts No allergy information available. Medications Active Medications Medication Dose Units Route Sig Qty Start Date Status In structions Metolazone 7.5 MG PO daily May 13, 2018 Acti ve Simethicone [Phazyme] 250 MG PO twice a day 2018 Active Menthol [Cough Drops] 5 MG Mucous Membrane .PRN bru2018 Active Fluticasone Propionate Nasal 1 SPRAY Intranasal twice a day May 13, 2018 Active Hypromellose/Pf [Retaine Hpmc 0.3% Eye Drops] 1 DRP o phthalmic (eye) daily PRN May 13, 2018 Active Ondansetron Hcl [Zofran] 4 MG PO Q6H PRN October 06, 2017 Active Tolnaftate 1 APPLIC Topical one time only October 06, 2017 Ac tive Diltiazem Hcl [Tiazac] 240 MG PO daily October 09 018 Active Guaifenesin [Tussin Mucus-Chest Congestion] 200 MG PO Q4H PRN October 09, 2017 Active Promethazine Hcl 25 MG PO Q6H PRN October 09, 2017 Ac tive Metoclopramide Hcl [Reglan] 10 MG PO Q6H October 09, 2017 Active Atorvastatin Calcium [Lipitor] 40 MG PO every day at bedt christian October 17, 2011 Active Aripiprazole [Abilify] 30 MG PO daily 0 June 23, 2012 Active Cyanocobalamin (Vitamin B-12) [Vitamin B-12] 2000 MCG PO daily June 23, 2012 Active Acetaminophen [Tylenol] 1 - 2 TAB PO every 4-6 hours as needed 0 December 20, 2012 Active Escitalopram Oxalate [Lexapro] 20 MG PO daily 30 S ep2012 Active Magnesium Hydroxide [Milk Of Magnesia] 30 ML PO d aily as needed 0 December 20, 2012 Active Sennosides [Senna] 8.6 MG PO twice a day 0 December 20, 2012 Active Quetiapine Fumarate 300 MG PO daily 0 February 16, 2015 Active Polyethylene Glycol 3350 17 GM PO daily 0 2014 Active Ranitidine Hcl [Zantac] 150 MG PO twice a day 30 August 15, 2015 Active Mirtazapine [Remeron] 15 MG PO daily 0 December 09, 2016 Active Apixaban [Eliquis] 5 MG PO twice a day 60 March 20, 2017 Active Furosemide 40 MG PO twice a day 0 October 09, 2017 Acti ve Potassium Chloride 40 MEQ PO twice a day 30 October 09 018 Active Docusate Sodium [Colace] 100 MG PO twice a day PRN For CONSTIPATION 0 October 09, 2017 Active Discontinued Medications Medication Dose Units Route Sig Qty Start Date Discontinued Valdez e Status Instructions Metolazone 2.5 MG PO daily August 18, 2017 May 13 19 Discontinued Aspirin (Aspirin 81 Mg) 81 MG [...] [Xarelto] 20 MG PO daily 0 October 16, 012 March 20, 2017 Discontinued Oxybutynin Chloride [...] December 25, 2011 June 23, 2012 Discontinued Potassium Chloride 30 MEQ PO daily 30 June 23, 2012 August 18, 2017 Discontinued Diltiazem Hcl [Diltiazem 24hr Er] 240 MG PO daily 0 December 20, 2012 October 09, 2017 Discontinued Hypromellose (Artificial Tears) 15 ML OP [...] December 20, 2012 August 15, 2015 Discontinued Ergocalciferol (Vitamin D2) [Vitamin D2] 32118 UNIT PO DIRECTED July 18, 2013 October [...] SPRAY TP twice a day 1 Novemb 2014August 05, 2016 Discontinued Hypromellose (Artificial Tears) 15 ML OP as needed 0 February 16, 2015 May 13, 2018 Discontinued Furosemide 80 MG PO daily 0 February 16, 2015 October 09, 018 Discontinued Cyanocobalamin (Cyanocobalamin 1000MCG\Ml*) 1000 MCG [...] [Singulair] 10 MG PO daily 30 S eptemb2016May 13, 2018 Discontinued Ergocalciferol (Vitamin D2) [Vitamin D2] 14134 UNIT PO DIRECTED 9 February 04, 2017 October 06, 2017 Discontinued One capsule weekly f or four weeks, then One capsule monthly for 5 months, for a total of six months of therapy Digoxin 250 MCG PO daily May 01, 2017 October 06, 2017 Discontinued Potassium Chloride 30 MEQ PO daily August 18, 2017October Discontinued Problem List Active Problems Medical Problem [...] Constipation Inactive Procedures Procedure Date Status MRI [id number]-Z/WO August 04, 2017 completed Reason for Referral Referral information is unavailable. Relevant Diagnostic Tests and/or Laboratory Data Laboratory Results Test Date/Time Result Interp. Ref. Range Result Comment Bedside Urine Clarity August 18, 2017 11:32am CLEAR (N=CLEAR) Bedside Urine Color (LAB) August 18, 2017 11:32am DARK STRAW (N=CLEAR) Bedside Urine Specific [place] (LAB August 18, 2017 11:32am 1.010(N=1. 000-1.025) [...] 7.5 MG PO daily May 13, 2018 Act braydon Simethicone 250 MG PO twice a day May 13 19 Active Menthol 5 MG Mucous Membrane .PRN May 13 19 Active Fluticasone Propionate Nasal 1 SPRAY Intranasal twice a day May 13, 2018 Active Hypromellose/Pf 1 DRP ophthalmic (eye) daily PRN Fe [facility] 2018 Active Ondansetron Hcl 4 MG PO Q6H PRN October 06, 2017 A ctive Tolnaftate 1 APPLIC Topical one time only October 06, 2017 Active Diltiazem Hcl 240 MG PO daily October 09, 2017 Acti ve Guaifenesin 200 MG PO Q4H PRN October 09, 2017 Activ e Promethazine Hcl 25 MG PO Q6H PRN October 09, 2017 Active Metoclopramide Hcl 10 MG PO Q6H October 09, 2017 Active Aspirin (Aspirin 81 Mg) 81 MG PO daily 0 October Discontinued Digoxin 0.125 MCG PO daily 0 October 17, 2011 Discontin ued Diltiazem Hcl 180 MG PO twice a day 0 October 16 2 Discontinued Docusate Sodium 100 MG PO twice a day October 16 012 Discontinued Famotidine 20 MG PO daily 0 October 17, 2011 Discon tinued Metoprolol Tartrate 25 MG PO twice a day 0 October 042011 Discontinued Rivaroxaban 20 MG PO [...] Cyanocobalamin (Vitamin B-12) 2000 MCG PO daily 30 2012 Active Potassium Chloride 30 MEQ PO daily June 23 13 Discontinued Acetaminophen 1 - 2 TAB PO every 4-6 hours as needed 0 December 20, 2012 Active Diltiazem Hcl 240 MG PO daily December 20 3 Discontinued Escitalopram Oxalate 20 MG PO daily December 20, 2012 Active Hypromellose (Artificial Tears) 15 ML OP four times daily 0 December 20, 2012 Discontinued Lisinopril 5 MG PO every day at bedtime 30 2012 Discontinued Magnesium Hydroxide 30 ML PO daily as needed 0 pt2012 Active Mirtazapine 15 MG PO every day at bedtime 30 mb2012 Discontinued Polyethylene Glycol 3350 17 GM PO twice daily as needed 0 December 20, 2012 Discontinued Psyllium Husk/Aspartame 3.4 GM PO daily 0 er 2012 Discontinued Sennosides 8.6 MG PO twice a day 0 December 20 013 Active Ergocalciferol (Vitamin D2) 30868 UNIT PO DIRECTED July 18, 2013 Discontinued [...] Fumarate 300 MG PO daily 0 February Active Furosemide 80 MG PO daily 0 February 16, 2015 Di scontinued Polyethylene Glycol 3350 17 GM PO daily 0 er 2014 Active Cyanocobalamin (Cyanocobalamin 1000MCG\Ml*) 1000 [...] December 09, 2016 Discontinued Ergocalciferol (Vitamin D2) 78986 UNIT PO DIRECTED February 04, 2017 Discontinued [...] twice a day 0 October 09, 2017 Ac tive Potassium Chloride 40 MEQ PO twice a day October 09, 2017 Active Docusate Sodium 100 MG PO twice a day PRN For CONSTIPATION 0 October 09, 2017 Active Encounters Encounter Facility Location Admit/Visit Date Discharge/Departure Date Attending Provider Departed Physician/Provider Office Visit [facility] June 08, 2018 6:22am June 08, 2018 2:26pm Manuel Gerardo [facility]arted Physician[facility] May 11, 2018 9:39am May 11, 2018 9:45am Abby Escobar Registered Inpatient [facility] October 22, 2017 9:53am Rebeca Dubois Departed Physician/[facility] [place] October 06, 2017 2:42pm October 06, 2017 3:00pm Abby Escobar Departed Physician/Provider Office Visit [facility] October 06, 2017 8:50am October 06, 2017 12:50pm Manuel Gerardo Registered Inpatient [facility] October 02, 2017 11:59pm Abby Escobar Registered Inpatient [facility] August 18, 2017 1:49pm Nasra Newton Departed Physician/Provider Office Visit [facility]ph[facility] August 18, 2017 11:11am August 18, 2017 11:57am Lamar, Bed Departed Clinical [facility] August 04, 2017 9:49am August 04, 2017 9:50am Homar Kennedy Departed Physician[facility] [place] July 30, 2017 10:04am July 30, 2017 10:00am Abby Escobar Registered Inpatient [facility] July 28, 2017 11:59pm Lamar Nasra Registered Inpatient [facility] 2017 11:59pm Blas Mcbride Registered Inpatient [facility] 2017 11:59pm DamienemileeAbby Functional Status No known functional status. Immunizations No known immunizations. Payers Payer Name Policy Type Covered Republican Covered Republican Id Relationship Sub scriber Subscriber Id [employer] Other Valente Rempe [id number] Self / Same A s Patient Valente Rempe [id number] Medicare Medicare Valente Rempe [id number] Self / Same As Patien t Valente Rempe [id number] Self Pay Other Plan of Care No [...]
--- OUTSIDE RECORDS SUMMARY | 2019-09-03 19:01 | XMS REPORT | Continuity of Care Document ---
Author [facility] Address [address] [place] [address] Care Team Providers Care Inside Sales Manager Name Role Phone Homar Kennedy PCP Abby Escobar Attphys Allergies, Adverse Reactions, Alerts No allergy [...] Topical one time only October 06, 2017 [facility] 2018 Discontinued Diltiazem Hcl [Tiazac] 240 MG [...] 2018 Discontinued Ergocalciferol (Vitamin D2) [Vitamin D2] 74511 UNIT PO DIRECTED July 18, 2013 October [...] 2018 Discontinued Ergocalciferol (Vitamin D2) [Vitamin D2] 82860 UNIT PO DIRECTED February 04, 2017 October [...] Constipation Inactive Procedures Procedure Date Status MRI [id number]-Qizrraq-D/WO August 04, 2017 completed Reason for Referral Referral information is unavailable. Relevant Diagnostic Tests and/or Laboratory Data Laboratory Results Test Date/Time Result Interp. Ref. Range Result Comment Bedside Urine Clarity August 18, 2017 11:32am CLEAR (N=CLEAR) Bedside Urine Color (LAB) August 18, 2017 11:32am DARK STRAW (N=CLEAR) Bedside Urine Specific [place] (LAB August 18, 2017 11:32am 1.010(N=1. 000-1.025) [...] Reason for Visit Departed Physician/Provider Office Visit May 11, 2018 9: 39am 6 mo f/u no prior testing Hospital [...] 30 ML PO daily as needed 0 ember 2012 Active Mirtazapine 15 MG PO every day at bedtime 30 mber 2012 Discontinued Polyethylene Glycol 3350 17 GM PO twice daily as needed 0 December 20, 2012 Discontinued Psyllium Husk/Aspartame 3.4 GM PO daily 0 er 2012 Discontinued Sennosides 8.6 MG PO twice a day December 20 013 Discontinued Ergocalciferol (Vitamin D2) 66070 UNIT PO DIRECTED July 18, 2013 Discontinued [...] December 09, 2016 Discontinued Ergocalciferol (Vitamin D2) 33230 UNIT PO DIRECTED February 04, 2017 Discontinued [...] MG PO once at bedtime 0 Ma [facility] 2018 Active Potassium Chloride 30 MEQ PO three times a day 30 M 2018 Active Sennosides 8.6 MG PO .prn PRN 0 June 08, 2018 Acti ve Encounters Encounter Facility Location Admit/Visit Date Discharge/Departure Date Attending Provider Departed Physician/Provider Office Visit [facility] June 08, 2018 6:22am June 08, 2018 2:26pm Manuel Gerardo Departed Physician/Provider Office Visit [facility] [place] May 11, 2018 9:39am May 11, 2018 9:45am Abby Escobar Registered Inpatient [facility] October 22, 2017 9:53am Rebeca Dubois Departed Physician[facility] [place] October 06, 2017 2:42pm October 06, 2017 3:00pm Abby Escobar Departed Physician/Provider Office Visit [facility] October 06, 2017 8:50am October 06, 2017 12:50pm Manuel Gerardo Registered Inpatient [facility] October 02, 2017 11:59pm Abby Escobar Registered Inpatient [facility] [place] August 18, 2017 1:49pm Lamar, Bed Departed Physician/Provider Office [facility], 2017 11:11am August 18, 2017 11:57am Lamar, Bed Departed Clinical [facility] Magn Resonance Imag August 04, 2017 9:49am August 04, 2017 9:50am Homar Kennedy Departed Physician[facility] [place] July 30, 2017 10:04am July 30, 2017 10:00am Abby Escobar Registered Inpatient [facility] July 28, 2017 11:59pm Nasra Newton Registered Inpatient [facility] 2017 11:59pm ReedBlas moy Registered Inpatient [facility] 2017 11:59pm Abby Escobar Functional Status No known functional status. Immunizations No known immunizations. Payers Payer Name Policy Type Covered Constitution Party Covered Constitution Party Id Relationship Sub scriber Subscriber Id [employer] Other Valente Rempe [id number] Self / Same A s Patient Valente Rempe [id number] Medicare Medicare Valente Rempe [id number] Self / Same As Patien t Valente Rempe [id number] Self Pay Other Plan of Care No Known Plan of Care Information Social History No known social history. Vital Signs Vital Reading Result Reference Range Collection Date/ Time Height 5 ft 8 in May 11, 2018 9:43am Weight n/a Temperature n/a Pulse 81 BPM 60-90 June 08, 2018 2: 12pm Respiration 18 RPM 12-24 June 08, 2018 2: 12pm Pulse Oximetry 94 % 93-100 June 08, 2018 2: 12pm Blood Pressure Systolic 105 100-180 June 08, 2018 2:12pm Blood Pressure Diastolic 75 60-90 June 2:12pm Body Mass Index 44.5 May 11, 2018 9:43am
--- OUTSIDE RECORDS SUMMARY | 2019-09-03 19:02 | XMS REPORT | Continuity of Care Document ---
[facility] Address [address] [place] [address] Care Team Providers Care Gelatin Powder Mixer Name Role Phone Homar Kennedy PCP [phone] Abby Escobar Attphys Allergies, Adverse Reactions, Alerts [...] 2015 Discontinued Ergocalciferol (Vitamin D2) [Vitamin D2] 03813 UNIT PO DIRECTED July 18, 2013 October [...] 12.5 MG PO twice a day 30 Decemb r 2015October 15, 2016 Discontinued Nystatin 1 [...] 2018 Discontinued Ergocalciferol (Vitamin D2) [Vitamin D2] 46664 UNIT PO DIRECTED 9 February 04, 2017 [...] Constipation Inactive Procedures Procedure Date Status MRI Rykhh-Unlylnh-F/WO August 04, 2017 completed Reason for Referral Referral information is unavailable. Relevant Diagnostic Tests and/or Laboratory Data Laboratory Results Test Date/Time Result Interp. Ref. Range Result Comment Bedside Urine Clarity August 18, 2017 11:32am CLEAR (N=CLEAR) Bedside Urine Color (LAB) August 18, 2017 11:32am DARK STRAW (N=CLEAR) Bedside Urine Specific [place] (LAB August 18, 2017 11:32am 1.010(N=1. 000-1.025) [...] Hypromellose/Pf 1 DRP ophthalmic (eye) daily PRN [facility] 2018 Active Ondansetron Hcl 4 MG PO [...] December 20 013 Active Ergocalciferol (Vitamin D2) 66203 UNIT PO DIRECTED July 18, 2013 Discontinued [...] December 09, 2016 Discontinued Ergocalciferol (Vitamin D2) 63328 UNIT PO DIRECTED February 04, 2017 Discontinued [...] Date Attending Provider [facility]ed [facility] 9[facility]39[facility] May 11, 2018 9:45am Abby Escobar Registered Inpatient [facility] October 22, 2017 9:53am Rebeca Dubois Departed Physician/Provider Office Visit [facility] October 06, 2017 2:42pm October 06, 2017 3:00pm Abby Escobar Departed Physician/Provider Office Visit [facility] [place] October 06, 2017 8:50am October 06, 2017 12:50pm Manuel Gerardo Registered Inpatient [facility] October 02, 2017 11:59pm Abby Escobar Registered Inpatient [facility] August 18, 2017 1:49pm Lamar, Bed Departed Physician/Provider Office Visit [facility] August 18, 2017 11:11am August 18, 2017 11:57am Lamar, Bed Departed Clinical [facility] August 04, 2017 9:49am August 04, 2017 9:50am Homar Kennedy Departed [facility], 2017 10:04am July 30, 2017 10:00am Abby Escobar Registered Inpatient [facility] Neph[facility] C[facility] July 28, 2017 11:59pm Lamar, Bed Registered Inpatient [facility] Apr2017 11:59pm Blas Mcbride Registered Inpatient [facility] 2017 11:59pm Abby Escobar Functional Status No known functional status. Immunizations No known immunizations. Payers Payer Name Policy Type Covered Libertarian Covered Libertarian Id Relationship Sub scriber Subscriber Id [employer] Other Valente Rempe [id number] Self / Same A s Patient Valente Rempe [id number] Medicare Medicare Valente Rempe [id number] Self / Same As Patient He rbert Rempe [id number] Self Pay Other Plan of Care No Known Plan of Care Information Social History No known social history. Vital Signs Vital Reading Result Reference Range Collection Date/ Time Height 5 ft 8 in May 11, 2018 9:43am Weight 293 lb May 11, 2018 9:43am Temperature n/a Pulse 86 BPM 60-90 May 11, 2018 9:43am Respiration 18 RPM 12-24 October 06, 2017 12: 42pm Pulse Oximetry 94 % 93-100 October 06, 2017 12: 42pm Blood Pressure Systolic 114 100-180 May 11, 2018 9:43am Blood Pressure Diastolic 66 60-90 2018 9:43am Body Mass Index 44.5 May 11, 2018 9:43am
--- OUTSIDE RECORDS SUMMARY | 2019-09-03 19:02 | XMS REPORT | Continuity of Care Document ---
[facility] Address [address] [place] [address] Care Team Providers Care Gang Punch Operator Name Role Phone Homar Kennedy PCP [phone] Abby Escobar Attphys Allergies, Adverse Reactions, Alerts No allergy information available. Medications Active Medications Medication Dose Units Route Sig Qty Start Date Status In structions Metolazone 2.5 MG PO daily August 18, 2017 Active Ondansetron Hcl [Zofran] 4 MG PO [...] TAB PO every 4-6 hours as needed December 20, 2012 Active Escitalopram Oxalate [Lexapro] 20 MG PO daily 30 S ep2012 Active Magnesium Hydroxide [Milk Of Magnesia] 30 ML PO d aily as needed 0 December 20, 2012 Active Sennosides [Senna] 8.6 MG PO twice a day December 20, 2012 Active Hypromellose (Artificial Tears) 15 ML OP as needed 0 February 16, 2015 Active Quetiapine Fumarate 300 MG PO daily 0 February 16, 2015 Active Polyethylene Glycol 3350 17 GM PO daily 0 2014 Active Ranitidine Hcl [Zantac] 150 MG PO twice a day 30 August 15, 2015 Active Nystatin 1 APPL TP DIRECTED 1 August 05, 2016 Active Fluticasone Propionate (Flonase OTC Allergy Relief (120SPRY)) 1 SPRAY NA twice a day 15.8 October 15, 2016 Active Mirtazapine [Remeron] 15 MG PO daily 0 December 09, 2016 Active Montelukast Sodium [Singulair] 10 MG PO daily 30 S ep2016 Active Apixaban [Eliquis] 5 MG PO twice [...] Start Date Discontinued Valdez e Status Instructions Aspirin (Aspirin 81 Mg) 81 MG PO [...] 2015 Discontinued Ergocalciferol (Vitamin D2) [Vitamin D2] 15107 UNIT PO DIRECTED July 18, 2013 October [...] [Seroquel] 25 MG PO daily 0 J 2014February 16, 2015 Discontinued Famotidine 20 MG [...] day 1 Novemb 2014August 05, 2016 Discontinued Furosemide 80 MG PO daily 0 February 16, 2015 October 09, 018 Discontinued Cyanocobalamin (Cyanocobalamin 1000MCG\Ml*) 1000 MCG IJ unsure of dose 0 August 15, 2015 December 12, 2015 Discontinued Loperamide Hcl/Simethicone [Imodium Multi-Symptom Rel Cplt] 1 EACH PO DIRECTED 0 August 15, 2015 October 06, 2017 Discontinued Metoprolol Tartrate 12.5 MG PO twice a day 30 2015October 15, 2016 Discontinued Promethazine Hcl 25 MG PO DIRECTED 0 August 05, 2016 March 20, 2017 Discontinued Dextromethorphan Hbr [Wal-Tussin] 15 MG PO unsure of dose 0 October 15, 2016 March 20, 2017 Discontinued Ergocalciferol (Vitamin D2) [Vitamin D2] 64832 UNIT PO DIRECTED February 04, 2017 October [...] Constipation Inactive Procedures Procedure Date Status MRI Lnaea-Kxoscbq-S/WO August 04, 2017 completed Reason for Referral Referral information is unavailable. Relevant Diagnostic Tests and/or Laboratory Data Laboratory Results Test Date/Time Result Interp. Ref. Range Result Comment Bedside Urine Clarity August 18, 2017 11:32am CLEAR (N=CLEAR) Bedside Urine Color (LAB) August 18, 2017 11:32am DARK STRAW (N=CLEAR) Bedside Urine Specific [place] (LAB August 18, 2017 11:32am 1.010(N=1. 000-1.025) [...] patient to be within a diagnostic category. Urine Microalbumin mg/dl December 09, 2016 1:00pm 0.3 mg/dL Urine Creatinine (Albumin) December 09, 2016 1:00pm 58.65 mg/dL Urine Microalbumin/Creatinine Ratio December 09, 2016 1:00pm 5 mg/g The ADA (Diabetes Care 26:S94-S98,2003) [...] Reason for Visit Departed Physician/Provider Office Visit October 06, 2017 2:42pm Afib/HFU - per Dr. [facility] Discharge Instructions No known hospital discharge instructions. Hospital Discharge Medications Medication Dose Units Route Sig Qty Days Order Date Status In structions Metolazone 2.5 MG PO daily August 18, 2017 Active Ondansetron Hcl 4 MG PO Q6H [...] December 20 013 Active Ergocalciferol (Vitamin D2) 55967 UNIT PO DIRECTED July 18, 2013 Discontinued [...] ML OP as needed February 16, 2015 Active Quetiapine Fumarate 300 MG PO daily February Active Furosemide 80 MG PO daily [...] 1 APPL TP DIRECTED August 05, 2016 Activ e Promethazine Hcl 25 MG PO DIRECTED August 05 17 Discontinued Dextromethorphan Hbr 15 MG PO unsure of dose 0 2016 Discontinued Fluticasone Propionate (Flonase OTC Allergy Relief (120SPRY)) 1 SPRAY NA twice a day 15.8 October 15, 2016 Active Mirtazapine 15 MG PO daily 0 December 09, 2016 A ctive Montelukast Sodium 10 MG PO daily December 09, 2016 Active Ergocalciferol (Vitamin D2) 37252 UNIT PO DIRECTED February 04, 2017 Discontinued [...] MEQ PO twice a day 30 October 09, 2017 Active Docusate Sodium 100 MG PO twice a day PRN For CONSTIPATION 0 October 09, 2017 Active Encounters Encounter Facility Location Admit/Visit Date Discharge/Departure Date Attending Provider Departed Physician/Provider Office Visit [facility] October 06, 2017 2:42pm October 06, 2017 3:00pm Abby Escobar Departed Physician/Provider Office Visit [facility] [place] October 06, 2017 8:50am October 06, 2017 12:50pm Manuel Gerardo Registered Inpatient [facility] October 02, 2017 11:59pm Abby Escobar Registered Inpatient [facility] August 18, 2017 1:49pm Lamar, Bed Departed Physician/Provider Office Visit [facility] Nephrology C[facility] August 18, 2017 11:11am August 18, 2017 11:57am Lamar, Bed Departed [facility] August 04, 2017 9:49am August 04, 2017 9:50am Homar Kennedy [facility] July 30, 2017 10:04am July 30, 2017 10:00am Abby Escobar Registered Inpatient [facility]ph[facility] C[facility] July 28, 2017 11:59pm Lamar, Nasra Registered Inpatient [facility] 2017 11:59pm Blas Mcbride Registered Inpatient [facility] 2017 11:59pm Abby Escobar Registered Physician/Provider Office [facility] April 30, 2017 10:00am Blas Guo Registered Physician/Provider Office [facility] March 19, 2017 11:00am Amber Guo Registered Physician/Provider Office [facility] February 03, 2017 11:45am Blas Guo Departed [facility] NEPH Patient Bill Septemb2016 2:47pm December 09, 2016 Chnazia, Bed Registered Physician/Provider Office Visit [place] [facility] December 09, 2016 1:20pm Lamar, Bed Registered Physician/Provider Office Visit [facility] October 15, 2016 7:45am Manuel Gerardo Functional Status No known functional status. Immunizations No known immunizations. Payers Payer Name Policy Type Covered Alliance Party Covered Alliance Party Id Relationship Sub scriber Subscriber Id [employer] Other Valente Rempe [id number] Self / Same A s Patient Valente Rempe [id number] Medicare Medicare Valente Rempe [id number] Self / Same As Patient He rbert Rempe [id number] Self Pay Other Plan of Care No Known Plan of Care Information Social History No known social history. Vital Signs Vital Reading Result Reference Range Collection Date/ Time Height 5 ft 11 in October 06, 2017 2:4 7pm Weight 333 lb October 06, 2017 2:4 7pm Temperature n/a Pulse 93 BPM 60-90 October 06, 2017 2:4 7pm Respiration 18 RPM 12-24 October 06, 2017 12: 42pm Pulse Oximetry 94 % 93-100 October 06, 2017 12: 42pm Blood Pressure Systolic 100 100-180 October 06, 2017 2:47pm Blood Pressure Diastolic 60 60-90 October 06, 2017 2:47pm Body Mass Index 46.4 October 06, 2017 2:4 7pm
--- OUTSIDE RECORDS SUMMARY | 2019-09-03 19:02 | XMS REPORT | Continuity of Care Document ---
[facility] Address [address] [place] [address] Care Team Providers Care Animal Nutrition Consultant Name Role Phone Homar Kennedy PCP [phone] Manuel Gerardo Attphys Allergies, Adverse Reactions, Alerts No allergy information available. Medications Active Medications Medication Dose Units Route Sig Qty Start Date Status In structions Metolazone 2.5 MG PO daily August 18, 2017 Active Atorvastatin Calcium [Lipitor] 40 MG PO every day at bedt christian October 17, 2011 Active Aripiprazole [Abilify] 30 MG PO daily June 23, 2012 Active Cyanocobalamin (Vitamin B-12) [Vitamin B-12] 2000 MCG PO daily June 23, 2012 Active Acetaminophen [Tylenol] 1 - 2 TAB PO every 4-6 hours as needed December 20, 2012 Active Diltiazem Hcl [Diltiazem 24hr Er] 240 MG PO daily December 20, 2012 Active Escitalopram Oxalate [Lexapro] 20 MG PO daily 30 S epte2012 Active Magnesium Hydroxide [Milk Of Magnesia] 30 ML PO d aily as needed December 20, 2012 Active Sennosides [Senna] 8.6 MG PO twice a day December 20, 2012 Active Docusate Sodium [Colace] 100 MG PO daily PRN For CONSTIPAT ION October 16, 2014 Active Hypromellose (Artificial Tears) 15 ML OP as needed February 16, 2015 Active Quetiapine Fumarate 300 MG PO daily February 16, 2015 Active Furosemide 80 MG PO daily February 16, 2015 Act braydon Polyethylene Glycol 3350 17 GM PO daily 0 2014 Active Ranitidine Hcl [Zantac] 150 MG PO twice a day August 15, 2015 Active Nystatin 1 APPL [...] a day 60 March 20, 2017 Active Potassium Chloride 30 MEQ PO daily 30 August 18, 2017 Active Discontinued Medications Medication Dose Units Route Sig Qty Start Date Discontinued Valdez e Status Instructions Ondansetron Hcl [Zofran] 4 MG PO every 8-12 hours PRN October 06, 2017 Unverified Tolnaftate 1 APPLIC Topical one time only October 06, 2017 Unverified Aspirin (Aspirin 81 Mg) 81 MG PO [...] MG PO three times a day 0 2011October 15, 2016 Discontinued Furosemide [Lasix] 40 [...] June 23, 2012 August 18, 2017 Discontinued Hypromellose (Artificial Tears) 15 ML [...] 2015 Discontinued Ergocalciferol (Vitamin D2) [Vitamin D2] 68264 UNIT PO DIRECTED July 18, 2013 October 16, 2014 Discontinued One capsule weekly f or four weeks, then One capsule monthly for 8 months Lisinopril 2.5 MG PO daily 90 October 16, 2014 October 15, 2016 Discontinued Quetiapine Fumarate [Seroquel] 25 MG PO [...] a day 1 2014August 05, 2016 Discontinued Cyanocobalamin (Cyanocobalamin 1000MCG\Ml*) 1000 MCG IJ unsure of dose 0 August 15, 2015 December 12, 2015 Discontinued Loperamide Hcl/Simethicone [Imodium Multi-Symptom Rel Cplt] 1 EACH PO DIRECTED August 15, 2015 October 06, 2017 Discontinued Metoprolol Tartrate 12.5 MG PO twice a day 30 2015October 15, 2016 Discontinued Promethazine Hcl 25 MG PO DIRECTED August 05, 2016 March 20, 2017 Discontinued Dextromethorphan Hbr [Wal-Tussin] 15 MG PO unsure of dose 0 October 15, 2016 March 20, 2017 Discontinued Ergocalciferol (Vitamin D2) [Vitamin D2] 88729 UNIT PO DIRECTED February 04, 2017 October 06, 2017 Discontinued One capsule weekly f or four weeks, then One capsule monthly for 5 months, for a total of six months of therapy Digoxin 250 MCG PO daily May 01, 2017 October 06, 2017 Discontinued Problem List Active Problems Medical Problem [...] Constipation Inactive Procedures Procedure Date Status MRI Mcgog-Kprwioo-Q/WO August 04, 2017 completed Reason for Referral Referral information is unavailable. Relevant Diagnostic Tests and/or Laboratory Data Laboratory Results Test Date/Time Result Interp. Ref. Range Result Comment Bedside Urine Clarity August 18, 2017 11:32am CLEAR (N=CLEAR) Bedside Urine Color (LAB) August 18, 2017 11:32am DARK STRAW (N=CLEAR) Bedside Urine Specific [place] (LAB August 18, 2017 11:32am 1.010(N=1. 000-1.025) [...] 1:52pm 5 mg/g The ADA (Diabetes Care 26:S94-S98,2002) defines abnormalities in albumin excretion as follows: [...] Departed Physician/Provider Office Visit October 06, 2017 8:50am [facility] Hospital Discharge Instructions No known hospital discharge instructions. Hospital Discharge Medications Medication Dose Units Route Sig Qty Days Order Date Status In structions Metolazone 2.5 MG PO daily August 18, 2017 Active Ondansetron Hcl 4 MG PO every 8-12 hours PRN J farida 2017 Unverified Tolnaftate 1 APPLIC Topical one time only October 06, 2017 Unverified Aspirin (Aspirin 81 Mg) 81 MG PO [...] MG PO daily 0 December 20 3 Active Escitalopram Oxalate 20 MG PO daily December [...] December 20 013 Active Ergocalciferol (Vitamin D2) 38601 UNIT PO DIRECTED July 18, 2013 Discontinued One capsule weekly for four weeks, then One capsule monthly for 8 months Lisinopril 2.5 MG PO daily 90 October 16, 2014 Discon tinued Docusate Sodium 100 MG PO daily PRN For CONSTIPATION 0 October 16, 2014 Active Quetiapine Fumarate 25 MG PO daily 0 [...] MG PO daily 0 February 16, 2015 Ac tive Polyethylene Glycol 3350 17 GM PO daily [...] December 09, 2016 Active Ergocalciferol (Vitamin D2) 41664 UNIT PO DIRECTED February 04, 2017 Discontinued One capsule weekly for four weeks, then One capsule monthly for 5 months, for a total of six months of therapy Apixaban 5 MG PO twice a day 60 March 20, 2017 Active Digoxin 250 MCG PO daily May 01, 2017 Discon tinued Potassium Chloride 30 MEQ PO daily August 18, 2017 Active Encounters Encounter Facility Location Admit/Visit Date Discharge/Departure Date Attending Provider Departed Physician/Provider Office Visit [facility] October 06, 2017 8:50am October 06, 2017 12:50pm Manuel Gerardo Registered Inpatient [facility] October 02, 2017 11:59pm Abby Escobar Registered Inpatient [facility] August 18, 2017 1:49pm Nasra Newton Departed Physician/Provider Office Visit [facility] C[facility] August 18, 2017 11:11am August 18, 2017 11:57am Lamar, Nasra Departed Clinical [facility] August 04, 2017 9:49am August 04, 2017 9:50am Homar Kennedy Departed Physician/Provider Office Visit [facility] July 30, 2017 10:04am July 30, 2017 10:00am Janif, Abby Registered Inpatient [facility] Neph[facility] C[facility] July 28, 2017 11:59pm Lamar, Bed Registered Inpatient [facility] 2017 11:59pm Blas Mcbride Registered Inpatient [facility] 2017 11:59pm Brennan Escobarammed Registered Physician/Provider Office Visit [facility] April 30, 2017 10:00am Blas Guo Registered Physician/Provider Office Visit [facility] March 19, 2017 11:00am Amber Guo Registered Physician/Provider Office Visit [facility] February 03, 2017 11:45am Blas Guo Departed Clinical [facility] Patient Bill 2016 2:47pm December 09, 2016 Lamar, Bed Registered Physician/Provider Office [facility] December 09, 2016 1:20pm Lamar, Bed Registered Physician/Provider Office Visit [facility] October 15, 2016 7:45am Manuel Gerardo Functional Status No known functional status. Immunizations No known immunizations. Payers Payer Name Policy Type Covered Libertarian Covered Libertarian Id Relationship Sub scriber Subscriber Id [employer] Other Valente Rempe [id number] Self / Same A s Patient Valente Rempe [id number] Medicare Medicare Valente Rempe [id number] Self / Same As Patient He rbert Rempe [id number] Self Pay Other Plan of Care No Known Plan of Care Information Social History No known social history. Vital Signs Vital Reading Result Reference Range Collection Date/ Time Height 5 ft 7 in August 18, 2017 11: 35am Weight n/a Temperature n/a Pulse 81 BPM 60-90 October 06, 2017 12: 42pm Respiration 18 RPM -October 06, 2017 12: 42pm Pulse Oximetry 94 % 93-100 October 06, 2017 12: 42pm Blood Pressure Systolic 118 100-180 October 06, 2017 12:42pm Blood Pressure Diastolic 77 60-90 October 06, 2017 12:42pm Body Mass Index 54.3 August 18, 2017 11: 35am
--- OUTSIDE RECORDS SUMMARY | 2019-09-03 19:02 | XMS REPORT | Continuity of Care Document ---
Author Author [facility] Organization [facility] Address [address] [place] [address] Phone Unavailable Care Team Providers Care Transmitter Supervisor Name Role Phone Homar Kennedy DO PCP Insurance Providers Payer Name Policy Number Subscriber Name Relationship Medicare [id number] Valente Limon Jr Self / Same A s Patient [employer] [id number] Valente Limon Jr Self / Adilson e As Patient Problems Active Problems Medical Problem Onset Date Status Acute renal failure syndrome 10/17/2011 Hyperkalemia 10/17/2011 CKD (chronic kidney disease) stage 3, GFR 30-59 ml/min Unkno wn Acute Permanent atrial fibrillation Unknown Acute HTN, goal below 140/90 Unknown Acute Cardiomyopathy Unknown Acute Surgical Problem Onset Date Status S/P cholecystectomy Unknown Acute Hx of vasectomy Unknown Acute Past Problems Medical Problem Onset Date Prostate cancer Unknown A-fib Unknown Constipation Unknown Anxiety Unknown Schizophrenia Unknown Medications Current Home Medications Medication Dose Units Route Directions Days/Qty Instructions Star t Date Rivaroxaban 20 Mg 20 Mg Oral Daily Atorvastatin Calcium 40 Mg 40 Mg Oral Bedtime 30 10/17/11 Potassium Chloride 20 Meq 30 Meq Oral Daily 30 06/23/12 Aripiprazole 15 Mg 30 Mg Oral Daily 06/23 Cyanocobalamin 1 000 2,000 Mcg Oral Daily 30 Sennosides 8.6 Mg 8.6 Mg Oral Twice A Day Diltiazem Hcl 180 Mg 240 Mg Oral Daily Escitalopram Oxalate (Lexapro) 20 Mg 20 Mg Oral Daily 30 12/20/12 Magnesium Hydroxide 30 Ml 30 Ml Oral Daily As Needed 12/20/12 Acetaminophen (Tylenol 325 Mg) 325 Mg 1-2 Tab Oral Ev rigo 4-6 Hours As Needed 12/20/12 Docusate Sodium 100 Mg 100 Mg Oral Daily as needed for Const ipation 10/16/14 Tamsulosin Hcl (Flomax 0.4 Mg) 0.4 Mg 0.4 Mg Oral Daily 30 02/14/15 Hypromellose 0.4 % 15 Ml Ophthalmic As Needed 02/16/15 Quetiapine Fumarate 100 Mg 300 Mg Oral Daily 02/16/15 Furosemide (Lasix 40 Mg) 40 Mg 80 Mg Oral Daily 02/16/15 Polyethylene Glycol 3350 17 Gram 17 Gm Oral Daily 02/16/15 Loperamide Hcl/Simethicone 2 Mg-125 Mg 1 Each Oral As Direct ed 08/15/15 Ranitidine Hcl (Zantac 150 Mg) 150 Mg 150 Mg Oral Twice A Da y 30 08/15/15 Nystatin 100,000 Unit/Gram 1 Appl Topical As Directed 1 1 5GM SIZE 08/05/16 Promethazine Hcl 25 Mg 25 Mg Oral As Directed 08/05/16 Fluticasone Propionate 50 Mcg/Actuation 1 [place] Nasal Twice A Day 15.8 10/15/16 Dextromethorphan Hbr 15 Mg/5 Ml 15 Mg Oral Unsure Of Dose 10/15/16 Mirtazapine 15 Mg 15 Mg Oral Daily Montelukast Sodium (Singulair 10 Mg) 10 Mg 10 Mg Oral Daily 30 12/09/16 Past Home Medications Medication Directions Ordered Status Digoxin 250 Mcg Tablet, 0.125 Mcg Oral Daily 10/17/11 Discontinued Diltiazem Hcl 120 Mg Tablet, 180 Mg Oral Twice A Day 2 Discontinued Aspirin 81 Mg Tablet, 81 Mg Oral Daily 10/17/11 Discontinued Metoprolol Tartrate (Lopressor) 50 Mg Tablet, 25 Mg Oral Twice A Day 10/17/11 Discontinued Docusate Sodium 100 Mg Capsule, 100 Mg Oral Twice A Day 10/04 06/15 Discontinued Famotidine 20 Mg Tablet, 20 Mg Oral Daily 10/17/11 Discontinued Oxybutynin Chloride 5 Mg Tablet, 5 Mg Oral Three Times A Day 18/03 Discontinued Furosemide (Lasix) 80 Mg Tablet, 40 Mg Oral Daily 12/06 Discontinued Albuterol/Ipratropium 3 Ml Ampul.neb, 3 Ml Inhalation Twice A Da y 12/25/11 Discontinued Triamcinolone Acetonide 15 Gm Cream.gm., 1 Appl Topical Thre e Times A Day 12/25/11 Discontinued Psyllium Husk/Aspartame 3.4 Gm Powd.pack, 3.4 Gm Oral Daily 12/20/12 Discontinued Lisinopril 10 Mg Tablet, 5 Mg Oral Bedtime 12/20/12 Discontinued Mirtazapine 15 Mg Tablet, 15 Mg Oral Bedtime 12/20/12 Discontinued Polyethylene Glycol 3350 17 Gm Powd.pack, 17 Gm Oral Twice D aily As Needed 12/20/12 Discontinued Hypromellose 15 Ml Drops, 15 Ml Ophthalmic Four Times Daily 12/05 09/16 Discontinued Ergocalciferol 50,000 Unit Capsule, 32162 Unit Oral As Directed 07/18/13 Discontinued Lisinopril 2.5 Mg Tablet, 2.5 Mg Oral Daily 10/16/14 Discontinued Quetiapine Fumarate 25 Mg Tablet, 25 Mg Oral Daily Discontinued Famotidine 20 Mg Tablet, 20 Mg Oral Daily 02/14/15 Discontinued Oxybutynin Chloride 5 Mg Tablet, 5 Mg Oral Three Times A Day 02/18 Discontinued Nystatin 150 Million Unit Powder, 1 Appl Topical Twice A Day 02/14/15 Discontinued Tolnaftate 1 % Powder, 1 [place] Topical Twice A Day 02/14/15 Discontinued Cyanocobalamin (Vitamin B-12 Injection) 1,000 Mcg/Ml V ial, 1000 Mcg Injection Unsure Of Dose 08/15/15 Discontinued Metoprolol Tartrate (Metoprolol Tartrate*) 25 Mg Table t, 12.5 Mg Oral Twice A Day 12/12/15 Discontinued Social History Social History Problem Response Recorded Date/Terry e History of Street Drugs? No 10/15/2016 9:23 am Hx Alcohol Use No 10/15/2016 9:23am Query Response Start Date Stop Date Smoking status: Never smoker Hospital Discharge Instructions Current inpatient/outpatient. Discharge instructions are currently unavailable. Plan of Care Prescriptions Functional Status No functional status results. Allergies, Adverse Reactions, Alerts No known allergies. Immunizations No immunization records. Vital Signs Ambulatory Vital Signs Vital Response Date/Time Height 5 ft 11 in 12/09/2016 1:09pm Weight 346 lbs 12/09/2016 1:09pm Blood Pressure, Sitting, Right Arm 116/74 mm Hg 12/09 1:09pm Pulse Rate 85 bpm 12/09/2016 1:09pm Respiration Rate 20 bpm 12/09/2016 1:09pm Body Surface Area 2.89 m2 12/09/2016 1:09pm Body Mass Index 48.3 kg/m2 12/09/2016 1:09pm Pulse Oximetry Pulse Oximetry 12/09/2016 1:09pm Results Laboratory Results Test Name Result Units Flags Reference Collection Date/Time Result Date/Time Comments Urine Microalbumin mg/dl 0.3 mg/dL 12/09/2016 1:00 pm 12/09/2016 3:08pm Urine Creatinine (Albumin) 58.65 mg/dL 12/09/2016 1: 00pm 12/09/2016 3:08pm Urine Microalbumin/Creatinine Ratio 5 mg/g <30 12/09/2016 1:00pm 12/09/2016 3:08pm The ADA (Diabetes Care 26:S94-S98,2003) defines abnormalities in albumin excretion as follows: CATEGORY (RESULT mg/g CREATININE) Normal <30 Microalbuminuria 30-299 Clinical Albuminuria > or = 300 The ADA recommends that at least two of three specimens collected within a 3-6 month period be abnormal before considering a patient to be within a diagnostic category. Ambulatory Laboratory Results Test Name Result Units Flags Reference Result Date/Time Com ments Bedside Urine Bilirubin (LAB) NEGATIVE(N=NEG) 12/09/2016 1:00pm Bedside Urine Blood NEGATIVE(N=NEG) 08/2016 1:00pm Bedside Urine Clarity CLEAR (N=CLEAR) 1:00pm Bedside Urine Color (LAB) STRAW (N=CLEAR) 12/09/2016 1:00pm Bedside Urine Glucose (UA) NEGATIVE (N=NEG) 12/09/2016 1:00pm Bedside Urine Ketones (LAB) NEGATIVE (N=NEG) 12/09/2016 1:00pm Bedside Urine Leukocyte Esterase (L NEGATIVE (N=NEG) 12/09/2016 1:00pm Bedside Urine Nitrite (LAB) NEGATIVE (N=NEG) 12/09/2016 1:00pm Bedside Urine pH (LAB) 6.5 (N=5-6) 12/09 1:00pm Bedside Urine Protein (LAB) NEGATIVE (N=NEG) 12/09/2016 1:00pm Bedside Urine Specific [place] (LAB 1.015(N=1.000-1.025) 12/09/2016 1:00pm Bedside Urine Urobilinogen (LAB) 1.0 mg/dL (N=<=1.0) 12/09/2016 1:00pm Clinical Summary Created on: 12/09/2016 VALENTE LIMON : 1955 Sex: Male Author Author [facility] Organization [facility] Address Unknown Phone Unavailable Care Team Providers Care Transmitter Supervisor Name Role Phone PCP Unavailable Source Comments Some departments are not documenting in the electronic medical record. If you d o not see the information that you expected, contact Release of Information in the [employer] department at [phone] for further assistance in locating additional records .[facility] Allergies Active Allergy Reactions Severity Noted Date Comments Dust 04/15/2006 Vasile rgy recorded in SMS: Dust~Reactions: SNEEZING Current Medications Not on file Active Problems Not on file Social History Tobacco Use Types Packs/Day Years Used Date Never Assessed Sex Assigned at Date Recorded Not on file Last Filed Vital Signs Not on file Plan of Treatment Health Maintenance Due Date Last Done Comments HEPATITIS C SCREENING 1955 PHYSICAL (COMPREHENSIVE) 1960 EXAM PERTUSSIS VACCINE 1964 TETANUS VACCINE 1970 COLORECTAL CANCER 2003 SCREENING SHINGLES VACCINE 2013 INFLUENZA VACCINE 12/05/2016 Results Not on filefrom Last 3 Months Procedures No known history of procedures. Encounters Encounter Location Arrival/Admit Date Discharge/Depart Date Attending Provider Registered Provider [facility] 12/09/16 2:47pm Nasra Newton MD Office Visit Nephrology [facility] 12/09/16 1:20pm Nasra Newton MD Registered Practice [facility] 12/09/16 1:20pm Nasra Newton MD Office Visit [facility] [place] 10/15/16 7:45am Mike Gerardo M.D. Discharged [facility] 07/17/16 5:14pm 01/13/17 1 1:59pm Kwabena Walker
--- OUTSIDE RECORDS SUMMARY | 2019-09-03 19:03 | XMS REPORT | Continuity of Care Document ---
Author Author [facility] [employer] CorporationCounts [facility] the [facility] Address [address] [place] [address] Phone Care Team Providers Care Rendering Equipment Tender Name Role Phone Kavya SEGOVIA, Hemanth PP Leela LAUGHLINN, Rubia Unavailable Homar Clifton Unavailable [phone] Dick BASKETBALL SCOUT, Sara Unavailable Scott PARRA, Arianna Unavailable Unavailable Mau Pereira Unavailable Unavailable Ethel Orozco CMA [...] leg (682.6, L0 2.419) Status: Active Chronic kidney disease, stage III [...] Malaise and fatigue (780.79, R53.81) Status: Active FLU VACCINE - QUADRAVALENT (Renamed from NEED FOR IMMUNIZATION AGAINST INFLUENZA) (V04.81, Z23) Status: Active Need for prophylactic vaccination and in oculation against combinations of disease (V06.8) Status: Active 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 Obesity (278.00, E66.9) Status: Active OBESITY, MORBID (278.01, E66.01) Status: Active Obstructive sleep apnea (327.23) Status: Active Osteomalacia (268.2, M83.9) Status: Active Pneumococcal vaccination 5 years + (V03 .82) Status: Active Primary pulmonary hypertension (416.0, I [...] 30 days Quantity: 30 Ordered :25-Apr-2013 Hemanth Hoff MD, David MD* Started 25-Apr-2013 Active Comments: for delusional disorder AMOXICILLIN, 500MG (Oral Capsule) 1 Capsule three times daily for 10 days * Quantity: 30 Refills: 0 Ordered :11-Aug-2013 Rubia Swenson LPN* Started 08-May-2011 ActiveATORVASTATIN CALCIUM, 40MG (Oral Tablet) 1 Tablet at bedtime for 30 days * Quantity: 30 Refills: 12 Ordered :21-Jun-2013 Hemanth Hoff MD, David MD* Started 21-Jun-2013 Active Comments: for hypercholesterolemia CYANOCOBALAMIN, 1000MCG/ML (Injection Solution) 1 Solution use as directed every day for 7 days for 30 days * Quantity: 0 Refills: 12 Ordered : Hemanth Hoff MD, David MD* Started 22-Jun-2012 ActiveDETROL LA, [...] Quantity: 30 Refills: 5 Ordered :24-Aug-2013 Hemanth Hoff MD, David MD* Started 24-Aug-2013 Active Comments: 08/09/13 Called to Jay at [facility] ESCITALOPRAM OXALATE, 20MG (Oral Tablet) 1 Tablet daily for 30 days * Quantity: 30 Refills: 2 Ordered :16-Nov-2013 Homar Clifton * Started 16-Nov-2013 Active Comments: for depression FAMOTIDINE, 20MG (Oral Tablet) 1 Tablet two times daily for 30 days * Quantity: 60 Refills: 5 Ordered :01-Aug-2013 Hemanth Hoff MD, David MD* Started 01-Aug-2013 Active Comments: for acid FUROSEMIDE, 80MG (Oral Tablet) one Tablet two times daily for 30 days * Quantity: 60 Refills: 12 Ordered :09-Feb-2013 Hemanth Hoff MD, David MD* Started 09-Feb-2013 Active Comments: for edema LEXAPRO, 20MG (Oral Tablet) - Historical Medication ActiveLISINOPRIL, 5MG (Oral Tablet) 1 Tablet daily for 0 days * Quantity: 30 Refills: 6 Ordered :20-Jul-2013 Hemanth Hoff MD, David MD* Started 20-Jul-2013 ActiveMETOPROLOL SUCCINATE ER, 25MG (Oral Tablet Extended Release 24 Hour) 1 Tablet ER 24HR two times daily for 30 days * Quantity: 60 Refills: 4 Ordered : Hemanth Hoff MD, David MD* Started Active Comments: for hypertension MIRTAZAPINE, 15MG (Oral Tablet) 1 Tablet daily for 30 days * Quantity: 30 Refills: 6 Ordered :18-Jul-2013 Hemanth Hoff MD, David MD* Started 18-Jul-2013 ActiveOXYBUTYNIN CHLORIDE, 5MG (Oral Tablet) 1 Tablet three times daily for 30 days * Quantity: 90 Refills: 3 Ordered : Hemanth Hoff MD, David MD* Started ActivePOTASSIUM CHLORIDE MICHELLE [...] Quantity: 30 Refills: 12 Ordered :01-Aug-2013 Hemanth Hoff MD, David MD* Started 01-Aug-2013 Active Comments: to prevent strokes Acetylcysteine - Historical Medication 500mg daily InactiveASPIRIN EC, 81MG (Oral Tablet Delayed Release) [address] daily for 30 days * Quantity: 30 Refills: 0 Ordered :28-Jun-2011 Hemanth Hoff MD, David MD* Started 28-May-2011 Ended 27-Jun-2011 InactiveASPIRIN, 81MG (Oral Tablet) - Historical Medication one daily * Started 20-Dec-2008 Inactive Comments: to prevent strokes and heart attacks BUMETANIDE, 2MG (Oral Tablet) 2 (two) Tablet two times daily for 30 days * Quantity: 120 Refills: 0 Ordered :28-Jun-2011 Hemanth Hoff MD, David MD* Started 28-May-2011 Ended 27-Jun-2011 [...] Change to 360mg ER daily-Notified Jay at [facility]'Juju HOLMAN DILTIAZEM HCL, 90MG (Oral Tablet) 1 [...] Quantity: 0 Refills: 0 Ordered :03-Sep-2011 Hemanth Hoff MD, David MD* Started 22-Jul-2011 Ended 21-Aug-2011 [...] Quantity: 0 Refills: 0 Ordered :28-Jun-2011 Hemanth Hoff MD, David MD* Started 28-May-2011 Ended 27-Jun-2011 InactiveMIRALAX (Oral Packet) - Historical Medication as needed Inactive Comments: Medication taken as needed. POTASSIUM CHLORIDE, 20MEQ (Oral Packet) 2 (two) Tablet(s) every eight hours for 30 days * Quantity: 0 Refills: 0 Ordered :28-Jun-2011 Hemanth Hoff MD, David MD* Started 28-May-2011 Ended 27-Jun-2011 InactivePOTASSIUM CHLORIDE, 40 MEQ/15ML(20%) (Oral Liquid) 1 Liquid two times daily for 30 days * Quantity: 0 Refills: 0 Ordered : Hemanth Hoff MD, David MD* Started Ended InactiveSUDAFED PE MAXIMUM STRENGTH, 10MG (Oral Tablet) - Historical Medication 1 every four hours, as needed Inactive Comments: Medication taken as needed. TOBRAMYCIN SULFATE, 0.3% (Ophthalmic Solution) 2 drops in the left eye Solution four times daily, as needed for 5 days * Quantity: 1 Refills: 0 Ordered :05-Nov-2011 Hemanth Hoff MD, David MD* Started 05-Nov-2011 Ended 10-Nov-2011 [...] vasectomy in 1988; open prostatectomy attempt by [facility] in 2005 but due to fear of cutting nerves, they backed off on removing the prostate. Status: Active Procedures Procedure Dates Details IMMUNIZATION ADMIN ([id number]) Completed:Jan-2014 PNEUMOCOCCAL VACCINE (06589) Completed:11-Jan-2014 Flu (Influenza) *: flu shot Ordered:31-Jan-2014 IMMUNIZATION ADMIN ([id number]) Completed:Jan-2014 FLU VACCINE NO PRSV QUADRAVALENT 3 YRS+ (76793) Completed:31-Jan-2014 FOLLOW UP BY PCP Ordered:08-May-2011 IMMUNIZ ADMNIN, 1 VAC, SNGL/COMBO (83304) Ordered: 9 TDAP VACCINE IM, >7 YEARS (26098) Ordered:20-Dec-2008 Immunization Name Dates Details Influenza (3 years and up) Lot #: [id number] Administered on:13-Jan-2012 Comments: Site: Deltoid (L eft); Given at [facility] by Sherri PERRY Influenza (3 years and up) Lot #: [id number] Administered on:28-Dec-2012 Comments: Site: Deltoid ( Right) Pneumococcal (2 years and up) Lot #: [id number] Administered on:19-Jan-2014 Comments: Site: Deltoid ( Right); Admin by Antoinette Sheets RN Quadrivalent Influenza Vaccine for 3 yrs & up. 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 @ [employer] No Drug Use Non Smoker/No Tobacco Use [...] DAY 1 Treatment Plan * THEODORE CULTURE-URINE (38313); Ordered: 07/04/2013 * Chem 8 BMP (84732); Ordered: 12/24/2012; Note: STANDING ORDER * CBC (00723); Ordered: 12/21/2012 * Chem 8 BMP (48902); Ordered: 12/21/2012 * VITAMIN D 25 (CALCIFEROL)(30883); Ordered: 05/31/2012 * CBC (93183); Ordered: 01/09/2012 * URINALYSIS, (43377); Ordered: 01/09/2012 * THEODORE CULTURE-URINE (97974); Ordered: 01/09/2012 * BASIC METABOLIC PANEL,BMP (89228); Ordered: 10/31/2011; Note: STANDING ORDER * PHOSPHORUS (55890); Ordered: 10/31/2011 * MAGNESIUM (35000); Ordered: 10/31/2011 * VANCOMYCIN, TROUGH (37035); Ordered: 10/27/2011; Note: STANDING ORDER-Do as directed by the pharmacist. * Chem 8 BMP (87788); Ordered: 10/27/2011; Note: STANDING ORDER * Chem 8 BMP (56364); Ordered: 09/23/2011 * IRON PROFILE*; Ordered: 05/29/2011 * HGB A1C (65814); Ordered: 05/29/2011 * LIPID PANEL (17020); Ordered: 05/28/2011 * PSA (PROSTATE SPECIFIC ANTIGEN) (42960); Ordered: 05/28/2011 * METABOLIC PANEL, BASIC (19776); Ordered: 05/28/2011 * LIVER FUNCTION PANEL* (62085); Ordered: 05/28/2011 * VITAMIN B-12 (CYANOCOBALAMIN) (88613); Ordered: 05/28/2011 * TSH (THYROID STIMULATING HORMONE) (82410); Ordered: 05/28/2011 * VITAMIN D 25 (CALCIFEROL)(72104); Ordered: 05/28/2011 * MAGNESIUM (99222); Ordered: 05/28/2011 * EKG (96699); Ordered: 05/28/2011 * CBC & PLATELETS (AUTO) (54659); Ordered: 05/28/2011 * LIVER FUNCTION PANEL* (96928); Ordered: 01/16/2010 * CBC (74707); Ordered: 01/16/2010 * LIPID PANEL (37715); Ordered: 01/16/2010 * BASIC METABOLIC PANEL,BMP (05639); Ordered: 01/16/2010 * BASIC METABOLIC PANEL,BMP (01328); Ordered: 01/19/2009 * BASIC METABOLIC PANEL,BMP (65975); Ordered: 12/20/2008 * TSH (THYROID STIMULATING HORMONE) (37993); Ordered: 12/15/2008 * VITAMIN D, 25 (CALCIFEROL) (78224); Ordered: 12/15/2008 * CBC (25140); Ordered: 12/15/2008 * BASIC METABOLIC PANEL,BMP (59950); Ordered: 12/15/2008 * LIVER FUNCTION PANEL* (53007); Ordered: 12/15/2008 * LIPID PANEL (79682); Ordered: 12/15/2008 Advance Directives No Advance Directives available. Encounters Nurse visit (Non-Billable) - Pneumococca l vaccination 5 years + [facility] On 31-Jan-2014 15:21 Nurse visit (Non-Billable) - FLU VACCINE - QUADRAVALENT (Renamed from NEED FOR IMMUNIZATION AGAINST INFLUENZA) (V04.81 | Z23) [facility] On 31-Jan-2014 14:06 Medication Note - HYPERTENSION (401.9 | I10) [facility] On 24-Aug-2013 10:17 Office Visit [...] "General - Male": Pt lives at [facility]. No chest pain or shortness of air. Pt has hx of prostate cancer. Is currently in treatment. Never had screening colonoscopy. No family history of colon cancer. No blood in stools.[facility] On 11-Aug-2013 10:54 Annotation/Addendum - Unspecified Diagno sis [facility] On 04-Jul-2013 09:55 Office Visit - Obstructive sleep apnea, Chronic atrial fibrillation (Renamed from Atrial fibrillation, chronic) (427.31 | I48.2), Hypertension, benign, Edema (782.3 | R60.9) [facility]29 Office Visit - Edema, Obstructive sleep apnea, Hypertension, benign, Chronic atrial fibrillation Encounter Reason: [facility] 25-Jan-2013 13:25 Office Visit - Edema, Obstructive sleep apnea, Hypertension, benign, Renal insufficiency Encounter Reason: [facility] 12-Jan-2013 13:24 Office Visit - Edema, Heart failure, rig ht, Obstructive sleep apnea Encounter Reason: [facility] 29-Dec-2012 13:26 Office Visit - Cellulitis and abscess of leg, Heart failure, right, Edema Encounter Reason[facility] 24-Dec-2012 13:42 Office Visit - Cellulitis and abscess of leg, Heart failure, right, Edema Encounter Reason: Cellulitis - The last clinic visit was 1 week(s) ago. Symptoms include swelling, tenderness and drainage. Symptoms are located on the right leg. The symptoms occur constantly. The patient describes this as worsening. [facility] On 21-Dec-2012 13:38 Medication Note - ANXIETY AND DEPRESSION [facility] On 07-Dec-2012 11:57 Medication Note - Delusional disorder [facility] On 25-Nov-2012 13:07 Office Visit - Chronic atrial fibrillati on, Obstructive sleep apnea, Delusional disorder [facility] On 10:19 Office Visit - Hypertension, benign, Chr onic atrial fibrillation, Obstructive sleep apnea, Delusional disorder Encounter Reason: Medication Review/Refill - Note for "Medication Review/Refill": Suzan dose reductionNov[facility] On 10:37 Medication Note - Hypertension, benign [facility] On 29-Jun-2012 13:53 Annotation/Addendum - Vitamin B 12 defic iency [facility] On 22-Jun-2012 17:11 Annotation/Addendum - Heart failure, rig ht [facility] On 07-Jun-2012 11:12 Annotation/Addendum - Vitamin D deficien cy [facility] On 31-May-2012 16:31 Annotation/Addendum - Hypokalemia [facility] On 16-Mar-2012 08:49 Medication Note - Chronic atrial fibrill ation [facility] On 30-Jan-2012 09:29 Annotation/Addendum [facility] On 19-Jan-2012 10:00 Annotation/Addendum - Hematuria [facility] On 09-Jan-2012 13:02 Annotation/Addendum - Edema [facility] On 25-Nov-2011 10:08 Office Visit - Fibrillation, atrial, [place] ma, Obstructive sleep apnea, Hypertension, benign, Type II diabetes mellitus [facility] On 18-Nov-2011 09:35 Office Visit - Edema, Cellulitis and abs cess of leg, Obstructive sleep apnea, Fibrillation, atrial, Stasis dermatitis, Conjunctivitis NOS [facility] On 05-Nov-2011 09:41 Office Visit - Cellulitis and abscess of leg, Chronic kidney disease, stage III (585.3), Edema, Obstructive sleep apnea, Hypertension, benign, Fibrillation, atrial, Encounter for long-term use of other medications (V58.69) [facility] On 10:35 Office Visit - [...] dis ease, stage III (585.3) [facility] On 09:38 Annotation/Addendum - Renal failure , ac [place] chronic (584.9) [facility] On 10:57 Office Visit - Fibrillation, atrial, Typ e II diabetes mellitus, Obstructive sleep apnea, Hypertension, benign [facility] On 09:52 Annotation/Addendum [facility] On 10:43 Office Visit - Type II diabetes mellitus , Fibrillation, atrial, Hypertension, benign, Obstructive sleep apnea [facility] On 10:34 Medication Note - Unspecified Diagnosis [facility] On 22-Jul-2011 08:19 Annotation/Addendum - Type II diabetes m janell, Iron deficiency anemia [facility] On 29-May-2011 11:55 Office Visit - Fibrillation, atrial [facility] On 28-May-2011 11:17 Office Visit - Hypertension, benign, Danelle maliha pulmonary hypertension, Obstructive sleep apnea, Edema, Fibrillation, atrial, Encounter for long-term use of other medications (V58.69), Magnesium deficiency, Osteomalacia, Malaise and fatigue, Benign prostatic hypertrophy with urinary retention, CA of prostate, Hypercholesterolemia [facility] On 28-May-2011 11:01 Annotation/Addendum [facility] On 20-May-2011 09:13 Office Visit-Pre [...] include leg pain and edema. [facility] On 16-May-2011 10:42 Office Visit [...] Symptoms are relieved by sitting up.[facility] On 08-May-2011 08:38 Office Visit [...] control the flow of urine. [facility] On 16-Jan-2010 14:29 Office Visit - Edema, Hypertension, sandoval gn, Obstructive sleep apnea, Primary pulmonary hypertension, Asthma [facility] On 19-Jan-2009 09:37 Office Visit - Need for prophylactic vac cination and inoculation against combinations of disease, Edema, Hypertension, benign, Obstructive sleep apnea, Primary pulmonary hypertension, Asthma [facility] On 20-Dec-2008 13:48 Office Visit - Obstructive sleep apnea, Primary pulmonary hypertension, Edema, Malaise and fatigue, Hypertension, benign, Hypercholesterolemia, Encounter for long-term use of other medications (V58.69), Urinary incontinence [facility] On 15-Dec-2008 10:50
--- OUTSIDE RECORDS SUMMARY | 2019-09-03 19:03 | XMS REPORT | Continuity of Care Document ---
Author Author [facility] [employer] [facility] Address [address] [place] [address] Phone Care Team Providers Care Clinical Informatics Educator Name Role Phone Younger Hemanth SEGOVIA PP Rubia Swenson LPN Unavailable Unavailable Homar Clifton Unavailable [phone] Ethel Orozco CMA Unavailable Unavailable Unavailable History [...] block (426.53, I45.2) Status: Active Shingles (053.9) Onset:1982 Status: Active Shortness of breath (786.05, [...] Started 25-Apr-2013 Active Comments: for delusional disorder ARTIFICIAL TEARS, 0.2-0.2-1% (Ophthalmic Solution) - Historical Medication 1 drop in both eyes prn ActiveATORVASTATIN CALCIUM, 40MG (Oral Tablet) 1 Tablet [...] Change to 360mg ER daily-[facility] ERGOCALCIFEROL, [id number] (Oral Capsule) - Historical Medication 1 weekly ActiveESCITALOPRAM OXALATE, 20MG (Oral Tablet) 1 Tablet daily [...] Hemanth Murray MD, David MD* Started 20-Jul-2013 ActiveMETAMUCIL, 28.3% (Oral Powder) - Historical Medication 1 tsp daily ActiveMETOPROLOL SUCCINATE ER, 25MG (Oral Tablet Extended Release 24 Hour) 1 Tablet ER 24HR two times daily for 30 days * Quantity: 0 Refills: 12 Ordered :24-Dec-2012 Hemanth Murray MD, David MD* Started 24-Dec-2012 ActiveMIRALAX (Oral Packet) - Historical Medication 17 gram by mouth as needed ActiveMIRTAZAPINE, 15MG (Oral Tablet) 1 Tablet daily for [...] Comments: to prevent strokes with atrial fibrillation Acetylcysteine - Historical Medication 500mg daily InactiveAMOXICILLIN, 500MG (Oral Capsule) 1 Capsule three times [...] * Quantity: 28 Refills: 0 Ordered :05-Nov-2011 Damien Prattice * Started 05-Nov-2011 Ended 19-Nov-2011 Inactive Comments: [...] 8 Refills: 0 Ordered :31-May-2012 Radha Handy JAEL* Started 31-May-2012 Ended 30-Jul-2012 Inactive Allergies and Adverse Reactions Name Dates Details NKDA (Renamed from Aspirin *ANALGESICS - NonNarcotic*) Status: Active Past Medical History Name Dates Details Surgeries Comments: all 4 wisdom teet h removed in 1983 in [facility]; lap cholecystectomy 197; vasectomy in 1988; open prostatectomy attempt by [facility] in 2005 but due to fear of cutting nerves, they backed off on removing the prostate. Status: Active Procedures Procedure Dates Details FOLLOW UP BY PCP Ordered:08-May-2011 IMMUNIZ ADMNIN, 1 VAC, SNGL/COMBO (59996) Ordered: 9 TDAP VACCINE IM, >7 YEARS (89921) Ordered:20-Dec-2008 Immunization Name Dates Details Influenza (3 years and up) Lot #: [id number] Administered on:13-Jan-2012 Comments: Site: Deltoid (L eft); Given at [facility] by Sherri PERRY Influenza (3 years and up) Lot #: [id number] Administered on:28-Dec-2012 Comments: Site: Deltoid ( Right) Tdap (7 years and up) Lot #: [id number] Administered on:20-Dec-2008 Comments: Site: Deltoid ( Left) [...] Comments: 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 @ [employer] No Drug Use Non Smoker/No Tobacco Use [...] AMOXACILLIN PRELIM MICROBIOLOGY RESULTS Normal Comments: SITERT RESULT[2011 08:45 BS] NO GROWTH @ DAY 1 PRELIM MICROBIOLOGY RESULTS Normal Comments: SITERT ARM 1 RESULT[2011 08:45 BS] NO GROWTH @ DAY 1 PRELIM MICROBIOLOGY RESULTS Normal Comments: SITERT ARMDAY 1 RESULT[2011 08:45 BS] NO GROWTH @ DAY 1 PRELIM MICROBIOLOGY RESULTS Normal Comments: SITERT 1 RESULT[2011 08:45 BS] NO GROWTH @ DAY 1 PRELIM MICROBIOLOGY RESULTS Normal Comments: SITERT ARM RESULT[2011 08:45 BS] NO GROWTH @ DAY 1 PRELIM MICROBIOLOGY RESULTS Normal Comments: SITERT RESULT[2011 08:45 BS] NO GROWTH @ DAY 1 PRELIM MICROBIOLOGY RESULTS Normal Comments: SITERT 1 RESULT[2011 08:45 BS] NO GROWTH @ [...] DAY 1 Treatment Plan * THEODORE CULTURE-URINE (05338); Ordered: 07/04/2013 * Chem 8 BMP (22791); Ordered: 12/24/2012; Note: STANDING ORDER * CBC (19524); Ordered: 12/21/2012 * Chem 8 BMP (77765); Ordered: 12/21/2012 * VITAMIN D 25 (CALCIFEROL)(62856); Ordered: 05/31/2012 * CBC (75173); Ordered: 01/09/2012 * URINALYSIS, (79166); Ordered: 01/09/2012 * THEODORE CULTURE-URINE (65759); Ordered: 01/09/2012 * BASIC METABOLIC PANEL,BMP (79072); Ordered: 10/31/2011; Note: STANDING ORDER * PHOSPHORUS (25281); Ordered: 10/31/2011 * MAGNESIUM (37194); Ordered: 10/31/2011 * VANCOMYCIN, TROUGH (71475); Ordered: 10/27/2011; Note: STANDING ORDER-Do as directed by the pharmacist. * Chem 8 BMP (68687); Ordered: 10/27/2011; Note: STANDING ORDER * Chem 8 BMP (03671); Ordered: 09/23/2011 * IRON PROFILE*; Ordered: 05/29/2011 * HGB A1C (44564); Ordered: 05/29/2011 * LIPID PANEL (64963); Ordered: 05/28/2011 * PSA (PROSTATE SPECIFIC ANTIGEN) (09325); Ordered: 05/28/2011 * METABOLIC PANEL, BASIC (30391); Ordered: 05/28/2011 * LIVER FUNCTION PANEL* (57957); Ordered: 05/28/2011 * VITAMIN B-12 (CYANOCOBALAMIN) (08085); Ordered: 05/28/2011 * TSH (THYROID STIMULATING HORMONE) (95649); Ordered: 05/28/2011 * VITAMIN D 25 (CALCIFEROL)(32300); Ordered: 05/28/2011 * MAGNESIUM (38542); Ordered: 05/28/2011 * EKG (22898); Ordered: 05/28/2011 * CBC & PLATELETS (AUTO) (68611); Ordered: 05/28/2011 * LIVER FUNCTION PANEL* (55906); Ordered: 01/16/2010 * CBC (24182); Ordered: 01/16/2010 * LIPID PANEL (63530); Ordered: 01/16/2010 * BASIC METABOLIC PANEL,BMP (01770); Ordered: 01/16/2010 * BASIC METABOLIC PANEL,BMP (24368); Ordered: 01/19/2009 * BASIC METABOLIC PANEL,BMP (78768); Ordered: 12/20/2008 * TSH (THYROID STIMULATING HORMONE) (59287); Ordered: 12/15/2008 * VITAMIN D, 25 (CALCIFEROL) (79412); Ordered: 12/15/2008 * CBC (97368); Ordered: 12/15/2008 * BASIC METABOLIC PANEL,BMP (11090); Ordered: 12/15/2008 * LIVER FUNCTION PANEL* (04865); Ordered: 12/15/2008 * LIPID PANEL (23538); Ordered: 12/15/2008 Advance Directives No Advance Directives available. Encounters Review [facility] On 16-Aug-2013 15:36 Review - Chronic atrial fibrillation (Re named from Atrial fibrillation, chronic) (427.31 | I48.2), HYPERTENSION (401.9 | I10), HYPERLIPIDEMIA (272.4 | E78.5), Obesity, morbid, DEPRESSION (311 | F32.9), ENCOUNTER FOR SCREENING [...] history of colon cancer. No blood in stools.[facility] On 11-Aug-2013 10:54 Annotation/Addendum - Unspecified Diagno sis [facility] On 04-Jul-2013 09:55 Office Visit - Obstructive sleep apnea, Chronic atrial fibrillation (Renamed from Atrial fibrillation, chronic) (427.31 | I48.2), Hypertension, benign, Edema (782.3 | R60.9) [facility] 13:29 Office Visit - Edema, Obstructive sleep apnea, Hypertension, benign, Chronic atrial fibrillation Encounter Reason: [facility]Jan[facility]2013 13:25 Office Visit - Edema, Obstructive sleep apnea, Hypertension, benign, Renal insufficiency Encounter Reason[facility] 12-Jan-2013 13:24 Office Visit - Edema, Heart failure, rig ht, Obstructive sleep apnea Encounter Reason: [facility] 29[facility]Dec[facility]2012 13:26 Office Visit - Cellulitis and abscess of leg, Heart failure, right, Edema Encounter Reason[facility] 24[facility]2012 13:42 Office Visit - Cellulitis and abscess of leg, Heart failure, right, Edema Encounter Reason: Cellulitis - The last clinic visit was 1 week(s) ago. Symptoms include swelling, tenderness and drainage. Symptoms are located on the right leg. The symptoms occur constantly. The patient describes this as worsening. [facility] On 21-Dec-2012 13:38 Medication Note - ANXIETY AND DEPRESSION [facility] On 07-Dec-2012 11:57 Medication Note - Delusional disorder [facility] On 25-Nov-2012 13:07 Office Visit - Chronic atrial fibrillati on, Obstructive sleep apnea, Delusional disorder [facility] On 10:19 Office Visit - Hypertension, benign, Chr onic atrial fibrillation, Obstructive sleep apnea, Delusional disorder Encounter Reason: Medication Review/Refill - Note for "Medication Review/Refill": Suzan dose reductionAt[facility] On 10:37 Medication Note - Hypertension, benign [facility] On 29-Jun-2012 13:53 Annotation/Addendum - Vitamin B 12 defic iency [facility] On 22-Jun-2012 17:11 Annotation/Addendum - Heart failure, rig ht [facility] On 07-Jun-2012 11:12 Annotation/Addendum - Vitamin D deficien cy [facility] On 31-May-2012 16:31 Annotation/Addendum - Hypokalemia [facility] On 16-Mar-2012 08:49 Medication Note - Chronic atrial fibrill ation [facility] On 30-Jan-2012 09:29 Annotation/Addendum [facility] On 19-Jan-2012 10:00 Annotation/Addendum - Hematuria [facility] On 09-Jan-2012 13:02 Annotation/Addendum - Edema [facility] On 25-Nov-2011 10:08 Office Visit - Fibrillation, atrial, Troy ma, Obstructive sleep apnea, Hypertension, benign, Type II diabetes mellitus [facility] On 18-Nov-2011 09:35 Office Visit - Edema, Cellulitis and abs cess of leg, Obstructive sleep apnea, Fibrillation, atrial, Stasis dermatitis, Conjunctivitis NOS [facility] On 05-Nov-2011 09:41 Office Visit - Cellulitis and abscess of leg, Chronic kidney disease, stage III (585.3), Edema, Obstructive sleep apnea, Hypertension, benign, Fibrillation, atrial, Encounter for long-term use of other medications (V58.69) [facility] On 10:35 Office Visit - Edema, Cellulitis and abs cess of leg, Stasis dermatitis, Chronic kidney disease, stage III (585.3), Encounter for long-term use of other medications (V58.69), Noninfectious lymphedema Encounter Reason: Ankle Swelling - Patient has had swelling in bilateral feet and ankles with rednessand abdomen has some redness to it alsoGoFormerly [facility] 10:18 Annotation/Addendum - Chronic kidney dis ease, stage III (585.3) [facility] On 09:38 Annotation/Addendum - Renal failure , ac arthur on chronic (584.9) [facility] On 10:57 Office Visit - Fibrillation, atrial, Typ e II diabetes mellitus, Obstructive sleep apnea, Hypertension, benign [facility] On 09:52 Annotation/Addendum [facility] On 10:43 Office Visit - Type II diabetes mellitus , Fibrillation, atrial, Hypertension, benign, Obstructive sleep apnea [facility] On 10:34 Medication Note - Unspecified Diagnosis [facility] On 22-Jul-2011 08:19 Annotation/Addendum - Type II diabetes keri maciel, Iron deficiency anemia [facility] On 29-May-2011 11:55 Office Visit - Fibrillation, atrial [facility] On 28-May-2011 11:17 Office Visit - Hypertension, benign, Danelle maliha pulmonary hypertension, Obstructive sleep apnea, Edema, Fibrillation, atrial, Encounter for long-term use of other medications (V58.69), Magnesium deficiency, Osteomalacia, Malaise and fatigue, Benign prostatic hypertrophy with urinary retention, CA of prostate, Hypercholesterolemia [facility] On 28-May-2011 11:01 Annotation/Addendum [facility] On 20-May-2011 09:13 Office Visit-Pre Admission - Edema, Hype rtension, benign, Shortness of breath, Primary pulmonary hypertension, Obstructive sleep apnea, Heart failure, right Encounter Reason: Shortness of Breath - Symptoms include exercise intolerance, fatigue and cough (in the am some times). Onset was sudden 3 week(s) ago. The patient describes this as mild. Associated symptoms include leg pain and edema. [facility] On 16-May-2011 10:42 Office Visit - Acute [...] and talking. Symptoms are relieved by sitting up.[facility] On 08-May-2011 08:38 Office Visit - Hypertension, [...] patient cannot control the flow of urine. [facility] On 16-Jan-2010 14:29 Office Visit - Edema, Hypertension, sandoval gn, Obstructive sleep apnea, Primary pulmonary hypertension, Asthma [facility] On 19-Jan-2009 09:37 Office Visit - Need for prophylactic vac cination and inoculation against combinations of disease, Edema, Hypertension, benign, Obstructive sleep apnea, Primary pulmonary hypertension, Asthma [facility] On 20-Dec-2008 13:48 Office Visit - Obstructive sleep apnea, Primary pulmonary hypertension, Edema, Malaise and fatigue, Hypertension, benign, Hypercholesterolemia, Encounter for long-term use of other medications (V58.69), Urinary incontinence [facility] On 15-Dec-2008 10:50
--- OUTSIDE RECORDS SUMMARY | 2019-09-03 19:04 | XMS REPORT | Continuity of Care Document ---
Author Author [facility] Address [address] [place] [address] Phone Care Team Providers Care Supervisor Cell Operation Name Role Phone Younger Hemanth SEGOVIA PP Rubia Swenson LPN Unavailable Unavailable Homar Clifton Unavailable [phone] Ethel Orozco CMA Unavailable Unavailable Unavailable History [...] Started 25-Apr-2013 Active Comments: for delusional disorder ATORVASTATIN CALCIUM, 40MG (Oral Tablet) 1 Tablet [...] [facility] 360[facility] OXALATE, 20MG (Oral Tablet) 1 [...] SEGOVIA* Started 09-Feb-2013 Active Comments: for edema LEXAPRO, 20MG (Oral Tablet) - Historical Medication ActiveLISINOPRIL, 5MG (Oral Tablet) 1 Tablet daily for 0 days * Quantity: 30 Refills: 6 Ordered :20-Jul-2013 Hemanth Murray MD, Hemanth SEGOVIA* Started 20-Jul-2013 ActiveMETOPROLOL SUCCINATE ER, 25MG (Oral Tablet Extended Release 24 Hour) 1 Tablet ER 24HR two times daily for 30 days * Quantity: 0 Refills: 12 Ordered :24-Dec-2012 Hemanth Murray MD, David MD* Started 24-Dec-2012 ActiveMIRTAZAPINE, 15MG (Oral Tablet) 1 Tablet daily [...] hypokalemia Rivaroxaban - Historical Medication 20mg daily ActiveXARELTO, 20MG (Oral Tablet) 1 Tablet daily for 30 days * Quantity: 30 Refills: 12 Ordered :01-Aug-2013 Hemanth Murray MD, David MD* Started 01-Aug-2013 Active Comments: to prevent strokes Acetylcysteine - Historical Medication 500mg daily InactiveAMOXICILLIN, [...] taken as needed. for infection and mattering TRIAMCINOLONE ACETONIDE, 0.5% (External Cream) 1 Cream apply sparingly to rash on feet and legs for 30 days * Quantity: 45 Refills: 6 Ordered :16-Aug-2013 Rubia Swenson LPN* Started 05-Nov-2011 Ended 16-Aug-2013 Inactive Comments: for stasis dermatitis VITAMIN D, 50,000unit (Oral Capsule) (Free Text) [...] teet h removed in 1983 in [facility]; lap cholecystectomy 197; vasectomy in 1988; open prostatectomy attempt by [facility] in 2005 but due to fear of cutting nerves, they backed off on removing the prostate. 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 Non [...] 1 PRELIM MICROBIOLOGY RESULTS Normal Comments: SITERT DAY 1 RESULT[2011 08:45 BS] NO GROWTH @ [...] DAY 1 Treatment Plan * THEODORE CULTURE-URINE (17329); Ordered: 07/04/2013 * Chem 8 BMP (73091); Ordered: 12/24/2012; Note: STANDING ORDER * CBC (58757); Ordered: 12/21/2012 * Chem 8 BMP (26935); Ordered: 12/21/2012 * VITAMIN D 25 (CALCIFEROL)(83353); Ordered: 05/31/2012 * CBC (76815); Ordered: 01/09/2012 * URINALYSIS, (41384); Ordered: 01/09/2012 * THEODORE CULTURE-URINE (49888); Ordered: 01/09/2012 * BASIC METABOLIC PANEL,BMP (45434); Ordered: 10/31/2011; Note: STANDING ORDER * PHOSPHORUS (19670); Ordered: 10/31/2011 * MAGNESIUM (23483); Ordered: 10/31/2011 * VANCOMYCIN, TROUGH (75016); Ordered: 10/27/2011; Note: STANDING ORDER-Do as directed by the pharmacist. * Chem 8 BMP (29568); Ordered: 10/27/2011; Note: STANDING ORDER * Chem 8 BMP (64292); Ordered: 09/23/2011 * IRON PROFILE*; Ordered: 05/29/2011 * HGB A1C (53490); Ordered: 05/29/2011 * LIPID PANEL (82150); Ordered: 05/28/2011 * PSA (PROSTATE SPECIFIC ANTIGEN) (70007); Ordered: 05/28/2011 * METABOLIC PANEL, BASIC (90189); Ordered: 05/28/2011 * LIVER FUNCTION PANEL* (01922); Ordered: 05/28/2011 * VITAMIN B-12 (CYANOCOBALAMIN) (38137); Ordered: 05/28/2011 * TSH (THYROID STIMULATING HORMONE) (36542); Ordered: 05/28/2011 * VITAMIN D 25 (CALCIFEROL)(01243); Ordered: 05/28/2011 * MAGNESIUM (64387); Ordered: 05/28/2011 * EKG (35242); Ordered: 05/28/2011 * CBC & PLATELETS (AUTO) (17351); Ordered: 05/28/2011 * LIVER FUNCTION PANEL* (62364); Ordered: 01/16/2010 * CBC (06436); Ordered: 01/16/2010 * LIPID PANEL (55708); Ordered: 01/16/2010 * BASIC METABOLIC PANEL,BMP (51077); Ordered: 01/16/2010 * BASIC METABOLIC PANEL,BMP (08187); Ordered: 01/19/2009 * BASIC METABOLIC PANEL,BMP (54785); Ordered: 12/20/2008 * TSH (THYROID STIMULATING HORMONE) (55813); Ordered: 12/15/2008 * VITAMIN D, 25 (CALCIFEROL) (21691); Ordered: 12/15/2008 * CBC (09368); Ordered: 12/15/2008 * BASIC METABOLIC PANEL,BMP (93566); Ordered: 12/15/2008 * LIVER FUNCTION PANEL* (44873); Ordered: 12/15/2008 * LIPID PANEL (25169); Ordered: 12/15/2008 Advance Directives No Advance Directives available. Encounters Review - Chronic atrial fibrillation (Re named [...] colon cancer. No blood in stools.[facility] On 11-Aug-2013 10:54 Annotation/Addendum - Unspecified Diagno sis [facility] On 04-Jul-2013 09:55 Office Visit - Obstructive sleep apnea, Chronic atrial fibrillation (Renamed from Atrial fibrillation, chronic) (427.31 | I48.2), Hypertension, benign, Edema (782.3 | R60.9) Encounter Reason: [facility] 22-Feb-2013 13:29 Office Visit - Edema, Obstructive sleep apnea, Hypertension, benign, Chronic atrial fibrillation Encounter Reason: Review lab resultsAt[facility] On 25-Jan-2013 13:25 Office Visit - Edema, Obstructive sleep apnea, Hypertension, benign, Renal insufficiency Encounter Reason: [facility]itis[facility] On 12-Jan-2013 13:24 Office Visit - Edema, Heart failure, rig ht, Obstructive sleep apnea Encounter Reason: [facility] 29-Dec-2012 13:26 Office Visit - Cellulitis and abscess of leg, Heart failure, right, Edema Encounter Reason: [facility] 24-Dec-2012 13:42 Office Visit - Cellulitis and abscess of leg, Heart failure, right, Edema Encounter Reason: Cellulitis - The last clinic visit was 1 week(s) ago. Symptoms include swelling, tenderness and drainage. Symptoms are located on the right leg. The symptoms occur constantly. The patient describes this as worsening. [facility] On 21-Dec-2012 13:38 Medication Note - ANXIETY AND DEPRESSION [facility] On 07-Dec-2012 11:57 Medication Note - Delusional disorder [facility] On 25-Nov-2012 13:07 Office Visit - Chronic atrial fibrillati on, Obstructive sleep apnea, Delusional disorder [facility] On 10:19 Office Visit - Hypertension, benign, Chr onic atrial fibrillation, Obstructive sleep apnea, Delusional disorder Encounter Reason: Medication Review/Refill - Note for "Medication Review/Refill": Suzan dose reductionAt[facility] Health [facility] On 10:37 Medication Note - Hypertension, benign [facility] On 29-Jun-2012 13:53 Annotation/Addendum - Vitamin B 12 defic iency [facility] On 22-Jun-2012 17:11 Annotation/Addendum - Heart failure, rig ht [facility] On 07-Jun-2012 11:12 Annotation/Addendum - Vitamin D deficien cy [facility] On 31-May-2012 16:31 Annotation/Addendum - Hypokalemia [facility] On 16-Mar-2012 08:49 Medication Note - Chronic atrial fibrill ation [facility] On 30-Jan-2012 09:29 Annotation/Addendum [facility] On 19-Jan-2012 10:00 Annotation/Addendum - Hematuria [facility] On 09-Jan-2012 13:02 Annotation/Addendum - Edema [facility] On 25-Nov-2011 10:08 Office Visit - Fibrillation, atrial, Troy ma, Obstructive sleep apnea, Hypertension, benign, Type II diabetes mellitus [facility] On 18-Nov-2011 09:35 Office Visit - Edema, Cellulitis and abs cess of leg, Obstructive sleep apnea, Fibrillation, atrial, Stasis dermatitis, Conjunctivitis NOS [facility] On 05-Nov-2011 09:41 Office Visit - Cellulitis and abscess of leg, Chronic kidney disease, stage III (585.3), Edema, Obstructive sleep apnea, Hypertension, benign, Fibrillation, atrial, Encounter for long-term use of other medications (V58.69) [facility] On 10:35 Office Visit - Edema, Cellulitis and abs cess of leg, Stasis dermatitis, Chronic kidney disease, stage III (585.3), Encounter for long-term use of other medications (V58.69), Noninfectious lymphedema Encounter Reason: Ankle Swelling - Patient has had swelling in bilateral feet and ankles with rednessand abdomen has some redness to it [facility] 10:18 Annotation/Addendum - Chronic kidney dis ease, stage III (585.3) [facility] On 09:38 Annotation/Addendum - Renal failure , ac arthur on chronic (584.9) [facility] On 10:57 Office Visit - Fibrillation, atrial, Typ e II diabetes mellitus, Obstructive sleep apnea, Hypertension, benign [facility] On 09:52 Annotation/Addendum [facility] On 10:43 Office Visit - Type II diabetes mellitus , Fibrillation, atrial, Hypertension, benign, Obstructive sleep apnea [facility] On 10:34 Medication Note - Unspecified Diagnosis [facility] On 22-Jul-2011 08:19 Annotation/Addendum - Type II diabetes m janell, Iron deficiency anemia [facility] On 29-May-2011 11:55 Office Visit - Fibrillation, atrial [facility] On 28-May-2011 11:17 Office Visit - Hypertension, benign, Danelle maliha pulmonary hypertension, Obstructive sleep apnea, Edema, Fibrillation, atrial, Encounter for long-term use of other medications (V58.69), Magnesium deficiency, Osteomalacia, Malaise and fatigue, Benign prostatic hypertrophy with urinary retention, CA of prostate, Hypercholesterolemia [facility] On 28-May-2011 11:01 Annotation/Addendum [facility] On 20-May-2011 09:13 Office Visit-Pre Admission - Edema, Hype rtension, benign, Shortness of breath, Primary pulmonary hypertension, Obstructive sleep apnea, Heart failure, right Encounter Reason: Shortness of Breath - Symptoms include exercise intolerance, fatigue and cough (in the am some times). Onset was sudden 3 week(s) ago. The patient describes this as mild. Associated symptoms include leg pain and edema. [facility] On 16-May-2011 10:42 Office Visit - [...] Symptoms are relieved by sitting up.[facility] On 08-May-2011 08:38 Office Visit - [...] control the flow of urine. [facility] On 16-Jan-2010 14:29 Office Visit - Edema, Hypertension, sandoval gn, Obstructive sleep apnea, Primary pulmonary hypertension, Asthma [facility] On 19-Jan-2009 09:37 Office Visit - Need for prophylactic vac cination and inoculation against combinations of disease, Edema, Hypertension, benign, Obstructive sleep apnea, Primary pulmonary hypertension, Asthma [facility] On 20-Dec-2008 13:48 Office Visit - Obstructive sleep apnea, Primary pulmonary hypertension, Edema, Malaise and fatigue, Hypertension, benign, Hypercholesterolemia, Encounter for long-term use of other medications (V58.69), Urinary incontinence [facility] On 15-Dec-2008 10:50
--- OUTSIDE RECORDS SUMMARY | 2019-09-03 19:04 | XMS REPORT | Continuity of Care Document ---
Author Author [facility] Address [address] [place] [address] Phone Care Team Providers Care Dual Hose Cementer Name Role Phone Younger Hemanth SEGOVIA PP Leela LAUGHLINN, Rubia Unavailable Josh Horton DOHomar Unavailable Dick CLEANING TEAM MEMBER, Sara Unavailable Lorna MCDONOUGH, Mau Ramos Unavailable [...] Active Comments: 08/09/13 Called to Jay at [facility] ESCITALOPRAM OXALATE, 20MG (Oral Tablet) 1 [...] Change to 360mg ER daily[facility] HOLMAN DILTIAZEM HCL, 90MG (Oral Tablet) [...] wisdom teet h removed in 1983 in [facility]; lap cholecystectomy 197; vasectomy in 1988; open prostatectomy attempt by [facility] in 2005 but due to fear of cutting nerves, they backed off on removing the prostate. 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 @ [employer] No Drug Use Non Smoker/No Tobacco Use [...] DAY 1 Treatment Plan * THEODORE CULTURE-URINE (58619); Ordered: 07/04/2013 * Chem 8 BMP (01434); Ordered: 12/24/2012; Note: STANDING ORDER * CBC (13630); Ordered: 12/21/2012 * Chem 8 BMP (82704); Ordered: 12/21/2012 * VITAMIN D 25 (CALCIFEROL)(06755); Ordered: 05/31/2012 * CBC (90717); Ordered: 01/09/2012 * URINALYSIS, (89164); Ordered: 01/09/2012 * THEODORE CULTURE-URINE (03284); Ordered: 01/09/2012 * BASIC METABOLIC PANEL,BMP (36230); Ordered: 10/31/2011; Note: STANDING ORDER * PHOSPHORUS (42759); Ordered: 10/31/2011 * MAGNESIUM (56513); Ordered: 10/31/2011 * VANCOMYCIN, TROUGH (58244); Ordered: 10/27/2011; Note: STANDING ORDER-Do as directed by the pharmacist. * Chem 8 BMP (73482); Ordered: 10/27/2011; Note: STANDING ORDER * Chem 8 BMP (82022); Ordered: 09/23/2011 * IRON PROFILE*; Ordered: 05/29/2011 * HGB A1C (17853); Ordered: 05/29/2011 * LIPID PANEL (27086); Ordered: 05/28/2011 * PSA (PROSTATE SPECIFIC ANTIGEN) (04649); Ordered: 05/28/2011 * METABOLIC PANEL, BASIC (30788); Ordered: 05/28/2011 * LIVER FUNCTION PANEL* (20143); Ordered: 05/28/2011 * VITAMIN B-12 (CYANOCOBALAMIN) (16002); Ordered: 05/28/2011 * TSH (THYROID STIMULATING HORMONE) (16810); Ordered: 05/28/2011 * VITAMIN D 25 (CALCIFEROL)(00291); Ordered: 05/28/2011 * MAGNESIUM (02857); Ordered: 05/28/2011 * EKG (74261); Ordered: 05/28/2011 * CBC & PLATELETS (AUTO) (20405); Ordered: 05/28/2011 * LIVER FUNCTION PANEL* (50633); Ordered: 01/16/2010 * CBC (92585); Ordered: 01/16/2010 * LIPID PANEL (89627); Ordered: 01/16/2010 * BASIC METABOLIC PANEL,BMP (73113); Ordered: 01/16/2010 * BASIC METABOLIC PANEL,BMP (52974); Ordered: 01/19/2009 * BASIC METABOLIC PANEL,BMP (76320); Ordered: 12/20/2008 * TSH (THYROID STIMULATING HORMONE) (57049); Ordered: 12/15/2008 * VITAMIN D, 25 (CALCIFEROL) (66282); Ordered: 12/15/2008 * CBC (70980); Ordered: 12/15/2008 * BASIC METABOLIC PANEL,BMP (36235); Ordered: 12/15/2008 * LIVER FUNCTION PANEL* (78007); Ordered: 12/15/2008 * LIPID PANEL (47422); Ordered: 12/15/2008 Advance Directives No Advance Directives available. Encounters Medication Note - HYPERTENSION (401.9 | I10) [facility] On 24-Aug[facility]2013 10:17 Office Visit - [...] history of colon cancer. No blood in stools.[facility] On 11-Aug-2013 10:54 Annotation/Addendum - Unspecified Diagno sis [facility] On 04-Jul-2013 09:55 Office Visit - Obstructive sleep apnea, Chronic atrial fibrillation (Renamed from Atrial fibrillation, chronic) (427.31 | I48.2), Hypertension, benign, Edema (782.3 | R60.9) [facility] Reason[facility] 22-[facility]2013 13:29 Office Visit - Edema, Obstructive sleep apnea, Hypertension, benign, Chronic atrial fibrillation Encounter Reason: Review [facility] resultsCritical [facility] On 25-Jan-2013 13:25 Office Visit - Edema, Obstructive sleep apnea, Hypertension, benign, Renal insufficiency Encounter Reason: [facility]itis[facility] On 12-Jan-2013 13:24 Office Visit - Edema, Heart failure, rig ht, Obstructive sleep apnea Encounter Reason: [facility] On 29-Dec-2012 13:26 Office Visit - Cellulitis and abscess of leg, Heart failure, right, Edema Encounter Reason: [facility] 24-Dec-2012 13:42 Office Visit - Cellulitis and abscess of leg, Heart failure, right, Edema Encounter Reason: Cellulitis - The last clinic visit was 1 week(s) ago. Symptoms include swelling, tenderness and drainage. Symptoms are located on the right leg. The symptoms occur constantly. The patient describes this as worsening. [facility] On 21-Dec-2012 13:38 Medication Note - ANXIETY AND DEPRESSION [facility] On 07-Dec-2012 11:57 Medication Note - Delusional disorder [facility] On 25-Nov-2012 13:07 Office Visit - Chronic atrial fibrillati on, Obstructive sleep apnea, Delusional disorder [facility] On 10:19 Office Visit - Hypertension, benign, Chr onic atrial fibrillation, Obstructive sleep apnea, Delusional disorder Encounter Reason: Medication Review/Refill - Note for "Medication Review/Refill": Suzan dose reductionCritical [facility] Hospital On 10:37 Medication Note - Hypertension, benign [facility] On 29-Jun-2012 13:53 Annotation/Addendum - Vitamin B 12 defic iency [facility] On 22-Jun-2012 17:11 Annotation/Addendum - Heart failure, rig ht [facility] On 07-Jun-2012 11:12 Annotation/Addendum - Vitamin D deficien cy [facility] On 31-May-2012 16:31 Annotation/Addendum - Hypokalemia [facility] On 16-Mar-2012 08:49 Medication Note - Chronic atrial fibrill ation [facility] On 30-Jan-2012 09:29 Annotation/Addendum [facility] On 19-Jan-2012 10:00 Annotation/Addendum - Hematuria [facility] On 09-Jan-2012 13:02 Annotation/Addendum - Edema [facility] On 25-Nov-2011 10:08 Office Visit - Fibrillation, atrial, Troy ma, Obstructive sleep apnea, Hypertension, benign, Type II diabetes mellitus [facility] On 18-Nov-2011 09:35 Office Visit - Edema, Cellulitis and abs cess of leg, Obstructive sleep apnea, Fibrillation, atrial, Stasis dermatitis, Conjunctivitis NOS [facility] On 05-Nov-2011 09:41 Office Visit - Cellulitis and abscess of leg, Chronic kidney disease, stage III (585.3), Edema, Obstructive sleep apnea, Hypertension, benign, Fibrillation, atrial, Encounter for long-term use of other medications (V58.69) [facility] On 10:35 Office Visit - Edema, Cellulitis and abs cess of leg, Stasis dermatitis, Chronic kidney disease, stage III (585.3), Encounter for long-term use of other medications (V58.69), Noninfectious lymphedema Encounter Reason: Ankle Swelling - Patient has had swelling in bilateral feet and ankles with rednessand abdomen has some redness to it [facility] 10:18 Annotation/Addendum - Chronic kidney dis ease, stage III (585.3) [facility] On 09:38 Annotation/Addendum - Renal failure , ac arthur on chronic (584.9) [facility] On 10:57 Office Visit - Fibrillation, atrial, Typ e II diabetes mellitus, Obstructive sleep apnea, Hypertension, benign [facility] On 09:52 Annotation/Addendum [facility] On 10:43 Office Visit - Type II diabetes mellitus , Fibrillation, atrial, Hypertension, benign, Obstructive sleep apnea [facility] On 10:34 Medication Note - Unspecified Diagnosis [facility] On 22-Jul-2011 08:19 Annotation/Addendum - Type II diabetes m janell, Iron deficiency anemia [facility] On 29-May-2011 11:55 Office Visit - Fibrillation, atrial [facility] On 28-May-2011 11:17 Office Visit - Hypertension, benign, Danelle maliha pulmonary hypertension, Obstructive sleep apnea, Edema, Fibrillation, atrial, Encounter for long-term use of other medications (V58.69), Magnesium deficiency, Osteomalacia, Malaise and fatigue, Benign prostatic hypertrophy with urinary retention, CA of prostate, Hypercholesterolemia [facility] On 28-May-2011 11:01 Annotation/Addendum [facility] On 20-May-2011 09:13 Office Visit-Pre Admission - Edema, Hype rtension, benign, Shortness of breath, Primary pulmonary hypertension, Obstructive sleep apnea, Heart failure, right Encounter Reason: Shortness of Breath - Symptoms include exercise intolerance, fatigue and cough (in the am some times). Onset was sudden 3 week(s) ago. The patient describes this as mild. Associated symptoms include leg pain and edema. [facility] On 16-May-2011 10:42 Office Visit - [...] and talking. Symptoms are relieved by sitting up.[facility] On 08-May-2011 08:38 Office Visit - [...] patient cannot control the flow of urine. [facility] On 16-Jan-2010 14:29 Office Visit - Edema, Hypertension, sandoval gn, Obstructive sleep apnea, Primary pulmonary hypertension, Asthma [facility] On 19-Jan-2009 09:37 Office Visit - Need for prophylactic vac cination and inoculation against combinations of disease, Edema, Hypertension, benign, Obstructive sleep apnea, Primary pulmonary hypertension, Asthma [facility] On 20-Dec-2008 13:48 Office Visit - Obstructive sleep apnea, Primary pulmonary hypertension, Edema, Malaise and fatigue, Hypertension, benign, Hypercholesterolemia, Encounter for long-term use of other medications (V58.69), Urinary incontinence [facility] On 15-Dec-2008 10:50
[2019-09-03 19:05] LABS: BILIRUBIN,URINE NEGATIVE (NEGATIVE); CLARITY,URINE CLEAR; COLOR,URINE YELLOW; GLUCOSE, URINE (UA) NEGATIVE (NEGATIVE); KETONES,URINE NEGATIVE (NEGATIVE); LEUKOCYTE ESTERASE ,URINE NEGATIVE (NEGATIVE); NITRITE,URINE NEGATIVE (NEGATIVE); PH,URINE 5.5 (5-9); PROTEIN,URINE NEGATIVE (NEGATIVE)
--- OUTSIDE RECORDS SUMMARY | 2019-09-03 19:05 | XMS REPORT | Continuity of Care Document ---
Author [facility] [address] [facility] Address [address] [place] [address] Phone Care Team Providers Care Shipping Packer Name Role Phone Kavya SEGOVIA, Hemanth PP Leela LAUGHLINN, Rubia Unavailable Homar Clifton Unavailable Dick OCCUPATIONAL PSYCHOLOGIST, Sara Unavailable Scott PARRA, Arianna Unavailable Unavailable [...] Active Comments: 08/09/13 Called to Jay at [facility] ESCITALOPRAM OXALATE, 20MG (Oral Tablet) 1 Tablet daily for 30 days * Quantity: 30 Refills: 2 Ordered :16-Nov-2013 Josh Laniekristal Homar * Started 16-Nov-2013 Active Comments: for depression [...] Change to 360mg ER daily-[facility] HOLMAN DILTIAZEM HCL, 90MG (Oral Tablet) [...] teet h removed in [address] [facility]; lap cholecystectomy 197; vasectomy in 1988; open prostatectomy attempt by [facility] in 2005 but due to fear of cutting nerves, they backed off on removing the prostate. Status: Active Procedures Procedure Dates Details Flu (Influenza) *: flu shot Ordered:31-Jan-2014 IMMUNIZATION ADMIN ([id number]) Completed:Jan-2014 FLU VACCINE NO PRSV QUADRAVALENT 3 YRS+ (65889) Completed:31-Jan-2014 FOLLOW UP BY PCP Ordered:08-May-2011 IMMUNIZ ADMNIN, 1 VAC, SNGL/COMBO (34252) Ordered: 9 TDAP VACCINE IM, >7 YEARS (97370) Ordered:20-Dec-2008 Immunization Name Dates Details Influenza (3 years and up) Lot #: [id number] Administered on:13-Jan-2012 Comments: Site: Deltoid (L eft); Given at [facility] by Sherri PERRY Influenza (3 years and up) Lot #: [id number] Administered on:28-Dec-2012 Comments: Site: Deltoid ( Right) Quadrivalent Influenza Vaccine for 3 yrs & up. 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 @ [employer] No Drug Use Non Smoker/No Tobacco [...] DAY 1 Treatment Plan * THEODORE CULTURE-URINE (74155); Ordered: 07/04/2013 * Chem 8 BMP (33986); Ordered: 12/24/2012; Note: STANDING ORDER * CBC (37740); Ordered: 12/21/2012 * Chem 8 BMP (46430); Ordered: 12/21/2012 * VITAMIN D 25 (CALCIFEROL)(07956); Ordered: 05/31/2012 * CBC (87764); Ordered: 01/09/2012 * URINALYSIS, (61036); Ordered: 01/09/2012 * THEODORE CULTURE-URINE (37373); Ordered: 01/09/2012 * BASIC METABOLIC PANEL,BMP (79335); Ordered: 10/31/2011; Note: STANDING ORDER * PHOSPHORUS (60605); Ordered: 10/31/2011 * MAGNESIUM (81385); Ordered: 10/31/2011 * VANCOMYCIN, TROUGH (14566); Ordered: 10/27/2011; Note: STANDING ORDER-Do as directed by the pharmacist. * Chem 8 BMP (91604); Ordered: 10/27/2011; Note: STANDING ORDER * Chem 8 BMP (21448); Ordered: 09/23/2011 * IRON PROFILE*; Ordered: 05/29/2011 * HGB A1C (43886); Ordered: 05/29/2011 * LIPID PANEL (37865); Ordered: 05/28/2011 * PSA (PROSTATE SPECIFIC ANTIGEN) (29189); Ordered: 05/28/2011 * METABOLIC PANEL, BASIC (23670); Ordered: 05/28/2011 * LIVER FUNCTION PANEL* (76755); Ordered: 05/28/2011 * VITAMIN B-12 (CYANOCOBALAMIN) (60630); Ordered: 05/28/2011 * TSH (THYROID STIMULATING HORMONE) (61836); Ordered: 05/28/2011 * VITAMIN D 25 (CALCIFEROL)(22187); Ordered: 05/28/2011 * MAGNESIUM (42761); Ordered: 05/28/2011 * EKG (63257); Ordered: 05/28/2011 * CBC & PLATELETS (AUTO) (67145); Ordered: 05/28/2011 * LIVER FUNCTION PANEL* (44119); Ordered: 01/16/2010 * CBC (88567); Ordered: 01/16/2010 * LIPID PANEL (17537); Ordered: 01/16/2010 * BASIC METABOLIC PANEL,BMP (41592); Ordered: 01/16/2010 * BASIC METABOLIC PANEL,BMP (81421); Ordered: 01/19/2009 * BASIC METABOLIC PANEL,BMP (43458); Ordered: 12/20/2008 * TSH (THYROID STIMULATING HORMONE) (21457); Ordered: 12/15/2008 * VITAMIN D, 25 (CALCIFEROL) (66028); Ordered: 12/15/2008 * CBC (10163); Ordered: 12/15/2008 * BASIC METABOLIC PANEL,BMP (11321); Ordered: 12/15/2008 * LIVER FUNCTION PANEL* (24759); Ordered: 12/15/2008 * LIPID PANEL (56039); Ordered: 12/15/2008 Advance Directives No Advance Directives available. Encounters Nurse visit (Non-Billable) - FLU VACCINE - QUADRAVALENT (Renamed from NEED FOR IMMUNIZATION AGAINST INFLUENZA) (V04.81 | Z23) [facility] On 31-Jan-2014 14:06 Medication Note - HYPERTENSION (401.9 | I10) [facility] On 24-Aug-2013 10:17 Office Visit - Chronic [...] colon cancer. No blood in stools.[facility] On 11-Aug-2013 10:54 Annotation/Addendum - Unspecified Diagno sis [facility] On 04-Jul-2013 09:55 Office Visit - Obstructive sleep apnea, Chronic atrial fibrillation (Renamed from Atrial fibrillation, chronic) (427.31 | I48.2), Hypertension, benign, Edema (782.3 | R60.9) Encounter Reason[facility] 22-Feb[facility]2013 13:29 Office Visit - Edema, Obstructive sleep apnea, Hypertension, benign, Chronic atrial fibrillation Encounter Reason: Review [facility] results[facility] 25-Jan-2013 13:25 Office Visit - Edema, Obstructive sleep apnea, Hypertension, benign, Renal insufficiency Encounter Reason: [facility] 12-Jan-2013 13:24 Office Visit - Edema, Heart failure, rig ht, Obstructive sleep apnea Encounter Reason: [facility] 29-Dec-2012 13:26 Office Visit - Cellulitis and abscess of leg, Heart failure, right, Edema Encounter Reason: [facility] 24-Dec-2012 13:42 Office Visit - Cellulitis and abscess of leg, Heart failure, right, Edema Encounter Reason: Cellulitis - The last clinic visit was 1 week(s) ago. Symptoms include swelling, tenderness and drainage. Symptoms are located on the right leg. The symptoms occur constantly. The patient describes this as worsening. [facility] On 21-Dec-2012 13:38 Medication Note - ANXIETY AND DEPRESSION [facility] On 07-Dec-2012 11:57 Medication Note - Delusional disorder [facility] On 25-Nov-2012 13:07 Office Visit - Chronic atrial fibrillati on, Obstructive sleep apnea, Delusional disorder [facility] On 10:19 Office Visit - Hypertension, benign, Chr onic atrial fibrillation, Obstructive sleep apnea, Delusional disorder Encounter Reason: Medication Review/Refill - Note for "Medication Review/Refill": Suzan dose reductionAt[facility] Health [facility] On 10:37 Medication Note - Hypertension, benign [facility] On 29-Jun-2012 13:53 Annotation/Addendum - Vitamin B 12 defic iency [facility] On 22-Jun-2012 17:11 Annotation/Addendum - Heart failure, rig ht [facility] On 07-Jun-2012 11:12 Annotation/Addendum - Vitamin D deficien cy [facility] On 31-May-2012 16:31 Annotation/Addendum - Hypokalemia [facility] On 16-Mar-2012 08:49 Medication Note - Chronic atrial fibrill ation [facility] On 30-Jan-2012 09:29 Annotation/Addendum [facility] On 19-Jan-2012 10:00 Annotation/Addendum - Hematuria [facility] On 09-Jan-2012 13:02 Annotation/Addendum - Edema [facility] On 25-Nov-2011 10:08 Office Visit - Fibrillation, atrial, Troy ma, Obstructive sleep apnea, Hypertension, benign, Type II diabetes mellitus [facility] On 18-Nov-2011 09:35 Office Visit - Edema, Cellulitis and abs cess of leg, Obstructive sleep apnea, Fibrillation, atrial, Stasis dermatitis, Conjunctivitis NOS [facility] On 05-Nov-2011 09:41 Office Visit - Cellulitis and abscess of leg, Chronic kidney disease, stage III (585.3), Edema, Obstructive sleep apnea, Hypertension, benign, Fibrillation, atrial, Encounter for long-term use of other medications (V58.69) [facility] On 10:35 Office Visit - Edema, Cellulitis and abs cess of leg, Stasis dermatitis, Chronic kidney disease, stage III (585.3), Encounter for long-term use of other medications (V58.69), Noninfectious lymphedema Encounter Reason: Ankle Swelling - Patient has had swelling in bilateral feet and ankles with rednessand abdomen has some redness to it [facility] On 10:18 Annotation/Addendum - Chronic kidney dis ease, stage III (585.3) [facility] On 09:38 Annotation/Addendum - Renal failure , ac arthur on chronic (584.9) [facility] On 10:57 Office Visit - Fibrillation, atrial, Typ e II diabetes mellitus, Obstructive sleep apnea, Hypertension, benign [facility] On 09:52 Annotation/Addendum [facility] On 10:43 Office Visit - Type II diabetes mellitus , Fibrillation, atrial, Hypertension, benign, Obstructive sleep apnea [facility] On 10:34 Medication Note - Unspecified Diagnosis [facility] On 22-Jul-2011 08:19 Annotation/Addendum - Type II diabetes m ellitus, Iron deficiency anemia [facility] On 29-May-2011 11:55 Office Visit - Fibrillation, atrial [facility] On 28-May-2011 11:17 Office Visit - Hypertension, benign, Danelle maliha pulmonary hypertension, Obstructive sleep apnea, Edema, Fibrillation, atrial, Encounter for long-term use of other medications (V58.69), Magnesium deficiency, Osteomalacia, Malaise and fatigue, Benign prostatic hypertrophy with urinary retention, CA of prostate, Hypercholesterolemia [facility] On 28-May-2011 11:01 Annotation/Addendum [facility] On 20-May-2011 09:13 Office Visit-Pre Admission - Edema, Hype rtension, benign, Shortness of breath, Primary pulmonary hypertension, Obstructive sleep apnea, Heart failure, right Encounter Reason: Shortness of Breath - Symptoms include exercise intolerance, fatigue and cough (in the am some times). Onset was sudden 3 week(s) ago. The patient describes this as mild. Associated symptoms include leg pain and edema. [facility] On 16-May-2011 10:42 Office Visit - Acute [...] Symptoms are relieved by sitting up.[facility] On 08-May-2011 08:38 Office Visit - Hypertension, [...] control the flow of urine. [facility] On 16-Jan-2010 14:29 Office Visit - Edema, Hypertension, sandoval gn, Obstructive sleep apnea, Primary pulmonary hypertension, Asthma [facility] On 19-Jan-2009 09:37 Office Visit - Need for prophylactic vac cination and inoculation against combinations of disease, Edema, Hypertension, benign, Obstructive sleep apnea, Primary pulmonary hypertension, Asthma [facility] On 20-Dec-2008 13:48 Office Visit - Obstructive sleep apnea, Primary pulmonary hypertension, Edema, Malaise and fatigue, Hypertension, benign, Hypercholesterolemia, Encounter for long-term use of other medications (V58.69), Urinary incontinence [facility] On 15-Dec-2008 10:50
--- OUTSIDE RECORDS SUMMARY | 2019-09-03 19:05 | XMS REPORT | Continuity of Care Document ---
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OL[facility] DILTIAZEM HCL, 90MG (Oral Tablet) [...] 1988; open prostatectomy attempt by [facility] in 2005 but due to fear of cutting nerves, they backed off on removing the prostate. Status: Active Procedures Procedure Dates Details FOLLOW UP BY PCP Ordered:08-May-2011 IMMUNIZ ADMNIN, 1 VAC, SNGL/COMBO (84477) Ordered: 9 TDAP VACCINE IM, >7 YEARS (92494) Ordered:20-Dec-2008 Immunization Name Dates Details Influenza (3 years and up) Lot #: [id number] Administered on:13-Jan-2012 Comments: Site: Deltoid (L eft); Given at [facility] by Sherri PERRY Influenza (3 years and up) Lot #: [id number] Administered on:28-Dec-2012 Comments: Site: Deltoid ( Right) Tdap (7 years and up) Lot #: [id number] Administered on:20-Dec-2008 Comments: Site: Deltoid ( Left) [...] status Comments: 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 @ [employer] No Drug Use Non Smoker/No Tobacco [...] DAY 1 Treatment Plan * THEODORE CULTURE-URINE (54464); Ordered: 07/04/2013 * Chem 8 BMP (01963); Ordered: 12/24/2012; Note: STANDING ORDER * CBC (43019); Ordered: 12/21/2012 * Chem 8 BMP (64125); Ordered: 12/21/2012 * VITAMIN D 25 (CALCIFEROL)(95477); Ordered: 05/31/2012 * CBC (53086); Ordered: 01/09/2012 * URINALYSIS, (64266); Ordered: 01/09/2012 * THEODORE CULTURE-URINE (00438); Ordered: 01/09/2012 * BASIC METABOLIC PANEL,BMP (87391); Ordered: 10/31/2011; Note: STANDING ORDER * PHOSPHORUS (88338); Ordered: 10/31/2011 * MAGNESIUM (63659); Ordered: 10/31/2011 * VANCOMYCIN, TROUGH (98618); Ordered: 10/27/2011; Note: STANDING ORDER-Do as directed by the pharmacist. * Chem 8 BMP (93921); Ordered: 10/27/2011; Note: STANDING ORDER * Chem 8 BMP (02028); Ordered: 09/23/2011 * IRON PROFILE*; Ordered: 05/29/2011 * HGB A1C (02256); Ordered: 05/29/2011 * LIPID PANEL (09961); Ordered: 05/28/2011 * PSA (PROSTATE SPECIFIC ANTIGEN) (27035); Ordered: 05/28/2011 * METABOLIC PANEL, BASIC (91734); Ordered: 05/28/2011 * LIVER FUNCTION PANEL* (67659); Ordered: 05/28/2011 * VITAMIN B-12 (CYANOCOBALAMIN) (93402); Ordered: 05/28/2011 * TSH (THYROID STIMULATING HORMONE) (59697); Ordered: 05/28/2011 * VITAMIN D 25 (CALCIFEROL)(36223); Ordered: 05/28/2011 * MAGNESIUM (22571); Ordered: 05/28/2011 * EKG (38028); Ordered: 05/28/2011 * CBC & PLATELETS (AUTO) (21206); Ordered: 05/28/2011 * LIVER FUNCTION PANEL* (53250); Ordered: 01/16/2010 * CBC (72993); Ordered: 01/16/2010 * LIPID PANEL (62968); Ordered: 01/16/2010 * BASIC METABOLIC PANEL,BMP (07594); Ordered: 01/16/2010 * BASIC METABOLIC PANEL,BMP (21649); Ordered: 01/19/2009 * BASIC METABOLIC PANEL,BMP (44500); Ordered: 12/20/2008 * TSH (THYROID STIMULATING HORMONE) (46055); Ordered: 12/15/2008 * VITAMIN D, 25 (CALCIFEROL) (17629); Ordered: 12/15/2008 * CBC (57529); Ordered: 12/15/2008 * BASIC METABOLIC PANEL,BMP (76836); Ordered: 12/15/2008 * LIVER FUNCTION PANEL* (09054); Ordered: 12/15/2008 * LIPID PANEL (80223); Ordered: 12/15/2008 Advance Directives No Advance Directives available. Encounters Medication Note - HYPERTENSION (401.9 | I10) [facility] On 24-Aug-2013 10:17 Office Visit [...] colon cancer. No blood in stools.[facility] On 11-Aug-2013 10:54 Annotation/Addendum - Unspecified Diagno sis [facility] On 04-Jul-2013 09:55 Office Visit - Obstructive sleep apnea, Chronic atrial fibrillation (Renamed from Atrial fibrillation, chronic) (427.31 | I48.2), Hypertension, benign, Edema (782.3 | R60.9) Encounter Reason[facility] 22-Feb-2013 13:29 Office Visit - Edema, Obstructive sleep apnea, Hypertension, benign, Chronic atrial fibrillation Encounter Reason: Review lab resultsNov[facility] 25-Jan-2013 13:25 Office Visit - Edema, Obstructive sleep apnea, Hypertension, benign, Renal insufficiency Encounter Reason: CellulitisNov[facility] 12-Jan-2013 13:24 Office Visit - Edema, Heart failure, rig ht, Obstructive sleep apnea Encounter Reason: [facility]itisNov[facility] 29-Dec-2012 13:26 Office Visit - Cellulitis and abscess of leg, Heart failure, right, Edema Encounter Reason: [facility]itisNov[facility] 24-Dec-2012 13:42 Office Visit - Cellulitis and abscess of leg, Heart failure, right, Edema Encounter Reason: Cellulitis - The last clinic visit was 1 week(s) ago. Symptoms include swelling, tenderness and drainage. Symptoms are located on the right leg. The symptoms occur constantly. The patient describes this as worsening. [facility] On 21-Dec-2012 13:38 Medication Note - ANXIETY AND DEPRESSION [facility] On 07-Dec-2012 11:57 Medication Note - Delusional disorder [facility] On 25-Nov-2012 13:07 Office Visit - Chronic atrial fibrillati on, Obstructive sleep apnea, Delusional disorder [facility] On 10:19 Office Visit - Hypertension, benign, Chr onic atrial fibrillation, Obstructive sleep apnea, Delusional disorder Encounter Reason: Medication Review/Refill - Note for "Medication Review/Refill": Suzan dose reductionNovant Health [facility] On 10:37 Medication Note - Hypertension, benign [facility] On 29-Jun-2012 13:53 Annotation/Addendum - Vitamin B 12 defic iency [facility] On 22-Jun-2012 17:11 Annotation/Addendum - Heart failure, rig ht [facility] On 07-Jun-2012 11:12 Annotation/Addendum - Vitamin D deficien cy [facility] On 31-May-2012 16:31 Annotation/Addendum - Hypokalemia [facility] On 16-Mar-2012 08:49 Medication Note - Chronic atrial fibrill ation [facility] On 30-Jan-2012 09:29 Annotation/Addendum [facility] On 19-Jan-2012 10:00 Annotation/Addendum - Hematuria [facility] On 09-Jan-2012 13:02 Annotation/Addendum - Edema [facility] On 25-Nov-2011 10:08 Office Visit - Fibrillation, atrial, Troy ma, Obstructive sleep apnea, Hypertension, benign, Type II diabetes mellitus [facility] On 18-Nov-2011 09:35 Office Visit - Edema, Cellulitis and abs cess of leg, Obstructive sleep apnea, Fibrillation, atrial, Stasis dermatitis, Conjunctivitis NOS [facility] On 05-Nov-2011 09:41 Office Visit - Cellulitis and abscess of leg, Chronic kidney disease, stage III (585.3), Edema, Obstructive sleep apnea, Hypertension, benign, Fibrillation, atrial, Encounter for long-term use of other medications (V58.69) [facility] On 10:35 Office Visit - Edema, Cellulitis and abs cess of leg, Stasis dermatitis, Chronic kidney disease, stage III (585.3), Encounter for long-term use of other medications (V58.69), Noninfectious lymphedema Encounter Reason: Ankle Swelling - Patient has had swelling in bilateral feet and ankles with rednessand abdomen has some redness to it [facility] 10:18 Annotation/Addendum - Chronic kidney dis ease, stage III (585.3) [facility] On 09:38 Annotation/Addendum - Renal failure , ac arthur on chronic (584.9) [facility] On 10:57 Office Visit - Fibrillation, atrial, Typ e II diabetes mellitus, Obstructive sleep apnea, Hypertension, benign [facility] On 09:52 Annotation/Addendum [facility] On 10:43 Office Visit - Type II diabetes mellitus , Fibrillation, atrial, Hypertension, benign, Obstructive sleep apnea [facility] On 10:34 Medication Note - Unspecified Diagnosis [facility] On 22-Jul-2011 08:19 Annotation/Addendum - Type II diabetes m janell, Iron deficiency anemia [facility] On 29-May-2011 11:55 Office Visit - Fibrillation, atrial [facility] On 28-May-2011 11:17 Office Visit - Hypertension, benign, Danelle maliha pulmonary hypertension, Obstructive sleep apnea, Edema, Fibrillation, atrial, Encounter for long-term use of other medications (V58.69), Magnesium deficiency, Osteomalacia, Malaise and fatigue, Benign prostatic hypertrophy with urinary retention, CA of prostate, Hypercholesterolemia [facility] On 28-May-2011 11:01 Annotation/Addendum [facility] On 20-May-2011 09:13 Office Visit-Pre [...] include leg pain and edema. [facility] On 16-May-2011 10:42 Office Visit [...] Symptoms are relieved by sitting up.[facility] On 08-May-2011 08:38 Office Visit [...] control the flow of urine. [facility] On 16-Jan-2010 14:29 Office Visit - Edema, Hypertension, sandoval gn, Obstructive sleep apnea, Primary pulmonary hypertension, Asthma [facility] On 19-Jan-2009 09:37 Office Visit - Need for prophylactic vac cination and inoculation against combinations of disease, Edema, Hypertension, benign, Obstructive sleep apnea, Primary pulmonary hypertension, Asthma [facility] On 20-Dec-2008 13:48 Office Visit - Obstructive sleep apnea, Primary pulmonary hypertension, Edema, Malaise and fatigue, Hypertension, benign, Hypercholesterolemia, Encounter for long-term use of other medications (V58.69), Urinary incontinence [facility] On 15-Dec-2008 10:50
--- OUTSIDE RECORDS SUMMARY | 2019-09-03 19:05 | XMS REPORT | Continuity of Care Document ---
Author Author [facility] [employer] [facility] Address [address] [place] [address] Phone Care Team Providers Care Mobile Tester Name Role Phone Younger Hemanth SEGOVIA PP [...] for 30 days * Quantity: 60 Refills: 6 Ordered :01-Aug-2013 Hemanth Murray MD, David MD* Started 01-Aug-2013 ActiveESCITALOPRAM OXALATE, 20MG (Oral Tablet) 1 Tablet [...] 30 Refills: 0 Ordered :28-Jun-2011 Hemanth Murray MDHemanth MD* Started 28-May-2011 Ended 27-Jun-2011 InactiveBUMETANIDE, 2MG [...] wisdom teet h removed in 1983 in [facility]; lap cholecystectomy 197; vasectomy in 1988; open prostatectomy attempt by [facility] in 2005 but due to fear of cutting nerves, they backed off on removing the prostate. Status: Active Procedures Procedure Dates Details FOLLOW UP BY PCP Ordered:08-May-2011 IMMUNIZ ADMNIN, 1 VAC, SNGL/COMBO (32618) Ordered: 9 TDAP VACCINE IM, >7 YEARS (21018) Ordered:20-Dec-2008 Immunization Name Dates Details Influenza (3 years and up) Lot #: [id number] Administered on:13-Jan-2012 Comments: Site: Deltoid (L eft); Given at [facility] by Sherri PERRY Influenza (3 years and up) Lot #: [id number] Administered on:28-Dec-2012 Comments: Site: Deltoid ( Right) Tdap (7 years and up) Lot #: [id number] Administered on:20-Dec-2008 Comments: Site: Deltoid ( Left) [...] status Comments: 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 @ [employer]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 Drug Use Non Smoker/No [...] DAY 1 Treatment Plan * THEODORE CULTURE-URINE (07964); Ordered: 07/04/2013 * Chem 8 BMP (05762); Ordered: 12/24/2012; Note: STANDING ORDER * CBC (16546); Ordered: 12/21/2012 * Chem 8 BMP (66763); Ordered: 12/21/2012 * VITAMIN D 25 (CALCIFEROL)(92518); Ordered: 05/31/2012 * CBC (94703); Ordered: 01/09/2012 * URINALYSIS, (16582); Ordered: 01/09/2012 * THEODORE CULTURE-URINE (53463); Ordered: 01/09/2012 * BASIC METABOLIC PANEL,BMP (09194); Ordered: 10/31/2011; Note: STANDING ORDER * PHOSPHORUS (38607); Ordered: 10/31/2011 * MAGNESIUM (14129); Ordered: 10/31/2011 * VANCOMYCIN, TROUGH (81770); Ordered: 10/27/2011; Note: STANDING ORDER-Do as directed by the pharmacist. * Chem 8 BMP (76298); Ordered: 10/27/2011; Note: STANDING ORDER * Chem 8 BMP (67208); Ordered: 09/23/2011 * IRON PROFILE*; Ordered: 05/29/2011 * HGB A1C (94617); Ordered: 05/29/2011 * LIPID PANEL (68707); Ordered: 05/28/2011 * PSA (PROSTATE SPECIFIC ANTIGEN) (32003); Ordered: 05/28/2011 * METABOLIC PANEL, BASIC (90752); Ordered: 05/28/2011 * LIVER FUNCTION PANEL* (89526); Ordered: 05/28/2011 * VITAMIN B-12 (CYANOCOBALAMIN) (51801); Ordered: 05/28/2011 * TSH (THYROID STIMULATING HORMONE) (17152); Ordered: 05/28/2011 * VITAMIN D 25 (CALCIFEROL)(45627); Ordered: 05/28/2011 * MAGNESIUM (93911); Ordered: 05/28/2011 * EKG (05510); Ordered: 05/28/2011 * CBC & PLATELETS (AUTO) (70270); Ordered: 05/28/2011 * LIVER FUNCTION PANEL* (67290); Ordered: 01/16/2010 * CBC (96091); Ordered: 01/16/2010 * LIPID PANEL (47479); Ordered: 01/16/2010 * BASIC METABOLIC PANEL,BMP (38594); Ordered: 01/16/2010 * BASIC METABOLIC PANEL,BMP (99993); Ordered: 01/19/2009 * BASIC METABOLIC PANEL,BMP (97277); Ordered: 12/20/2008 * TSH (THYROID STIMULATING HORMONE) (49650); Ordered: 12/15/2008 * VITAMIN D, 25 (CALCIFEROL) (68917); Ordered: 12/15/2008 * CBC (17660); Ordered: 12/15/2008 * BASIC METABOLIC PANEL,BMP (64091); Ordered: 12/15/2008 * LIVER FUNCTION PANEL* (03659); Ordered: 12/15/2008 * LIPID PANEL (77873); Ordered: 12/15/2008 Advance Directives No Advance Directives available. Encounters Annotation/Addendum - Unspecified Diagno Pending sale to [facility] On 04-Jul-2013 09:55 Office Visit - Obstructive sleep apnea, Chronic atrial fibrillation (Renamed from Atrial fibrillation, chronic) (427.31 | I48.2), Hypertension, benign, Edema (782.3 | R60.9) Encounter Reason: [facility] On 22-Feb-2013 13:29 Office Visit - Edema, Obstructive sleep apnea, Hypertension, benign, Chronic atrial fibrillation [facility]:25 Office Visit - Edema, Obstructive sleep apnea, Hypertension, benign, Renal insufficiency [facility] 12-Jan-2013 13:24 Office Visit - Edema, Heart failure, rig ht, Obstructive sleep apnea En[facility] 29-Dec-2012 13:26 Office Visit - Cellulitis and abscess of leg, Heart failure, right, Edema [facility] 24-Dec-2012 13:42 Office Visit - Cellulitis and abscess of leg, Heart failure, right, Edema Encounter Reason: Cellulitis - The last clinic visit was 1 week(s) ago. Symptoms include swelling, tenderness and drainage. Symptoms are located on the right leg. The symptoms occur constantly. The patient describes this as worsening. [facility] On 21-Dec-2012 13:38 Medication Note - ANXIETY AND DEPRESSION [facility] On 07-Dec-2012 11:57 Medication Note - Delusional disorder [facility] On 25-Nov-2012 13:07 Office Visit - Chronic atrial fibrillati on, Obstructive sleep apnea, Delusional disorder [facility] On 10:19 Office Visit - Hypertension, benign, Chr onic atrial fibrillation, Obstructive sleep apnea, Delusional disorder Encounter Reason: Medication Review/Refill - Note for "Medication Review/Refill": [facility] On 10:37 Medication Note - Hypertension, benign [facility] On 29-Jun-2012 13:53 Annotation/Addendum - Vitamin B 12 defic iency [facility] On 22-Jun-2012 17:11 Annotation/Addendum - Heart failure, rig ht [facility] On 07-Jun-2012 11:12 Annotation/Addendum - Vitamin D deficien cy [facility] On 31-May-2012 16:31 Annotation/Addendum - Hypokalemia [facility] On 16-Mar-2012 08:49 Medication Note - Chronic atrial fibrill ation [facility] On 30-Jan-2012 09:29 Annotation/Addendum [facility] On 19-Jan-2012 10:00 Annotation/Addendum - Hematuria [facility] On 09-Jan-2012 13:02 Annotation/Addendum - Edema [facility] On 25-Nov-2011 10:08 Office Visit - Fibrillation, atrial, Rtoy ma, Obstructive sleep apnea, Hypertension, benign, Type II diabetes mellitus [facility] On 18-Nov-2011 09:35 Office Visit - Edema, Cellulitis and abs cess of leg, Obstructive sleep apnea, Fibrillation, atrial, Stasis dermatitis, Conjunctivitis NOS [facility] On 05-Nov-2011 09:41 Office Visit - Cellulitis and abscess of leg, Chronic kidney disease, stage III (585.3), Edema, Obstructive sleep apnea, Hypertension, benign, Fibrillation, atrial, Encounter for long-term use of other medications (V58.69) [facility] On 10:35 Office Visit - Edema, Cellulitis and abs cess of leg, Stasis dermatitis, Chronic kidney disease, stage III (585.3), Encounter for long-term use of other medications (V58.69), Noninfectious lymphedema Encounter Reason: Ankle Swelling - Patient has had swelling in bilateral feet and ankles with rednessand abdomen has some [facility] to [facility] Annotation/Addendum - Chronic kidney dis ease, stage III (585.3) [facility] On 09:38 Annotation/Addendum - Renal failure , ac arthur on chronic (584.9) [facility] On 10:57 Office Visit - Fibrillation, atrial, Typ e II diabetes mellitus, Obstructive sleep apnea, Hypertension, benign [facility] On 09:52 Annotation/Addendum [facility] On 10:43 Office Visit - Type II diabetes mellitus , Fibrillation, atrial, Hypertension, benign, Obstructive sleep apnea [facility] On 10:34 Medication Note - Unspecified Diagnosis [facility] On 22-Jul-2011 08:19 Annotation/Addendum - Type II diabetes m ellitus, Iron deficiency anemia [facility] On 29-May-2011 11:55 Office Visit - Fibrillation, atrial [facility] On 28-May-2011 11:17 Office Visit - Hypertension, benign, Danelle mailha pulmonary hypertension, Obstructive sleep apnea, Edema, Fibrillation, atrial, Encounter for long-term use of other medications (V58.69), Magnesium deficiency, Osteomalacia, Malaise and fatigue, Benign prostatic hypertrophy with urinary retention, CA of prostate, Hypercholesterolemia [facility] On 28-May-2011 11:01 Annotation/Addendum [facility] On 20-May-2011 09:13 Office Visit-Pre Admission - Edema, Hype rtension, benign, Shortness of breath, Primary pulmonary hypertension, Obstructive sleep apnea, Heart failure, right Encounter Reason: Shortness of Breath - Symptoms include exercise intolerance, fatigue and cough (in the am some times). Onset was sudden 3 week(s) ago. The patient describes this as mild. Associated symptoms include leg pain and edema. [facility] On 16-May-2011 10:42 Office Visit - Acute [...] Symptoms are relieved by sitting up.[facility] On 08-May-2011 08:38 Office Visit - Hypertension, [...] control the flow of urine. [facility] On 16-Jan-2010 14:29 Office Visit - Edema, Hypertension, sandoval gn, Obstructive sleep apnea, Primary pulmonary hypertension, Asthma [facility] On 19-Jan-2009 09:37 Office Visit - Need for prophylactic vac cination and inoculation against combinations of disease, Edema, Hypertension, benign, Obstructive sleep apnea, Primary pulmonary hypertension, Asthma [facility] On 20-Dec-2008 13:48 Office Visit - Obstructive sleep apnea, Primary pulmonary hypertension, Edema, Malaise and fatigue, Hypertension, benign, Hypercholesterolemia, Encounter for long-term use of other medications (V58.69), Urinary incontinence [facility] On 15-Dec-2008 10:50
--- OUTSIDE RECORDS SUMMARY | 2019-09-03 19:06 | XMS REPORT | Continuity of Care Document ---
Author Author [facility] Address [address] [place] [address] Phone Care Team Providers Care Jewel Waxer Name Role Phone Josh HortonHomar Felix PP Rubia Swenson LPN Unavailable Unavailable History of Present Illness No [...] Diagnosis Status: Active Unspecified Diagnosis Status: Active URINARY FREQUENCY (788.41, R35.0) Status: Active Urinary incontinence (788.30, R32) Status: Active Urinary incontinence (788.30, R32) Status: Active Vitamin B 12 deficiency (266.2) Status: Active Vitamin D deficiency (268.9, E55.9) Status: Active Medications Name Dates Details ABILIFY, 15MG (Oral Tablet) 1 Tablet daily for 30 days Quantity: 30 Ordered :25-Apr-2013 Hemanth Hoff MD* Started 25-Apr-2013 Active Comments: for delusional disorder AMOXICILLIN, 500MG (Oral Capsule) 1 Capsule three times daily for 10 days * Quantity: 30 Refills: 0 Ordered :11-Aug-2013 Rubia Swenson LPN* Started 08-May-2011 ActiveATORVASTATIN CALCIUM, 40MG (Oral Tablet) 1 Tablet at bedtime for 30 days * Quantity: 30 Refills: 12 Ordered :21-Jun-2013 Hemanth Hoff MD* Started 21-Jun-2013 Active Comments: for hypercholesterolemia CYANOCOBALAMIN, 1000MCG/ML (Injection Solution) 1 Solution use as directed every day for 7 days for 30 days * Quantity: 0 Refills: 12 Ordered : Hemanth Hoff MD* Started 22-Jun-2012 ActiveDETROL LA, 4MG (Oral [...] Quantity: 30 Refills: 5 Ordered :01-Feb-2014 Hemanth Hoff MD* Started 24-Aug-2013 Active Comments: 08/09/13 Called to Jay at [facility] ESCITALOPRAM OXALATE, 20MG (Oral Tablet) 1 Tablet daily for 30 days * Quantity: 30 Refills: 2 Ordered :16-Nov-2013 Homar Clifton Kali * Started 16-Nov-2013 Active Comments: for depression FAMOTIDINE, 20MG (Oral Tablet) 1 Tablet two times daily for 30 days * Quantity: 60 Refills: 5 Ordered :01-Aug-2013 Hemanth Hoff MD* Started 01-Aug-2013 Active Comments: for acid [...] 30 Refills: 6 Ordered :20-Jul-2013 Hemanth Hoff MD* Started 20-Jul-2013 ActiveMETOPROLOL SUCCINATE ER, 25MG (Oral Tablet Extended Release 24 Hour) 1 Tablet ER 24HR two times daily for 30 days * Quantity: 60 Refills: 4 Ordered : Hemanth Hoff MD* Started Active Comments: for hypertension MIRTAZAPINE, 15MG (Oral Tablet) 1 Tablet daily for 30 days * Quantity: 30 Refills: 6 Ordered :18-Jul-2013 Hemanth Hoff MD* Started 18-Jul-2013 ActiveOXYBUTYNIN CHLORIDE, 5MG (Oral Tablet) 1 Tablet three times daily for 30 days * Quantity: 90 Refills: 3 Ordered : Hemanth Hoff MD* Started ActivePOTASSIUM CHLORIDE MICHELLE ER, 20MEQ [...] 30 Refills: 12 Ordered :01-Aug-2013 Hemanth Hoff MD* Started 01-Aug-2013 Active Comments: to prevent strokes Acetylcysteine - Historical Medication 500mg daily InactiveASPIRIN EC, 81MG (Oral Tablet Delayed Release) [address] daily for 30 days * Quantity: 30 Refills: 0 Ordered :28-Jun-2011 Hemanth Hoff MD* Started 28-May-2011 Ended 27-Jun-2011 InactiveASPIRIN, 81MG (Oral Tablet) - Historical Medication one daily * Started 20-Dec-2008 Inactive Comments: to prevent strokes and heart attacks BUMETANIDE, 2MG (Oral Tablet) 2 (two) Tablet two times daily for 30 days * Quantity: 120 Refills: 0 Ordered :28-Jun-2011 Hemanth Hoff MD* Started 28-May-2011 Ended 27-Jun-2011 InactiveCPAP - [...] Quantity: 15 Refills: 12 Ordered :27-Dec-2012 Rubia Swensno LPN* Started 07-Jun-2012 Ended 27-Dec-2012 InactiveDILTIAZEM HCL ER, 180MG (Oral Capsule Extended Release 24 Hour) 1 Capsule ER 24HR 380mg daily for 30 days * Quantity: 30 Refills: 6 Ordered :24-Aug-2013 Sara Jennings LPN* Started 09-Aug-2013 Ended 24-Aug-2013 Inactive Comments: 08/09/13 Change to 360mg ER daily-[facility] DILTIAZEM HCL, 90MG (Oral Tablet) 1 Tablet every eight hours for 30 days * Quantity: 30 Refills: 4 Ordered :01-Aug-2013 Ethel Orozco CMA* Started 15-Jul-2013 Ended 01-Aug-2013 Inactive Comments: for atrial fib prevention DOXYCYCLINE HYCLATE, 100MG (Oral Capsule) 1 (one) Capsule two times daily on an empty stomach for 14 days * Quantity: 28 Refills: 0 Ordered :05-Nov-2011 Terence Mahnaz * Started 05-Nov-2011 Ended 19-Nov-2011 Inactive Comments: for skin infection DUONEB, 0.5-2.5 (3)MG/3ML (Inhalation Solution) 1 Solution every six hours for 30 days * Quantity: 0 Refills: 0 Ordered :03-Sep-2011 Hemanth Hoff MD* Started 22-Jul-2011 Ended 21-Aug-2011 InactiveGUAIFENESIN, 1200MG [...] 0 Refills: 0 Ordered :28-Jun-2011 Hemanth Hoff MD* Started 28-May-2011 Ended 27-Jun-2011 InactiveMIRALAX (Oral Packet) - Historical Medication as needed Inactive Comments: Medication taken as needed. POTASSIUM CHLORIDE, 20MEQ (Oral Packet) 2 (two) Tablet(s) every eight hours for 30 days * Quantity: 0 Refills: 0 Ordered :28-Jun-2011 Hemanth Hoff MD* Started 28-May-2011 Ended 27-Jun-2011 InactivePOTASSIUM CHLORIDE, 40 MEQ/15ML(20%) (Oral Liquid) 1 Liquid two times daily for 30 days * Quantity: 0 Refills: 0 Ordered : Hemanth Hoff MD* Started Ended InactiveSUDAFED PE MAXIMUM STRENGTH, 10MG (Oral Tablet) - Historical Medication 1 every four hours, as needed Inactive Comments: Medication taken as needed. TOBRAMYCIN SULFATE, 0.3% (Ophthalmic Solution) 2 drops in the left eye Solution four times daily, as needed for 5 days * Quantity: 1 Refills: 0 Ordered :05-Nov-2011 Hemanth Hoff MD* Started 05-Nov-2011 Ended 10-Nov-2011 Inactive Comments: [...] wisdom teet h removed in 1983 in [facility]; lap cholecystectomy 197; vasectomy in 1988; open prostatectomy attempt by [facility] in 2005 but due to fear of cutting nerves, they backed off on removing the prostate. Status: Active Procedures Procedure Dates Details Follow up in 2 months Ordered:01-Feb-2014 IMMUNIZATION ADMIN ([id number]) Completed:Jan-2014 PNEUMOCOCCAL VACCINE (35234) Completed:2 11-Jan-2014 Flu (Influenza) *: flu shot Ordered:31-Jan-2014 IMMUNIZATION ADMIN ([id number]) Completed:Jan-2014 FLU VACCINE NO PRSV QUADRAVALENT 3 YRS+ (24447) Completed:31-Jan-2014 FOLLOW UP BY PCP Ordered:08-May-2011 IMMUNIZ ADMNIN, 1 VAC, SNGL/COMBO (65074) Ordered: 9 TDAP VACCINE IM, >7 YEARS (19812) Ordered:20-Dec-2008 Immunization Name Dates Details Influenza (3 years and up) Lot #: [id number] Administered on:13-Jan-2012 Comments: Site: Deltoid (L eft); Given at [facility] by Sherri PERRY Influenza (3 years and up) Lot #: [id number] Administered on:28-Dec-2012 Comments: Site: Deltoid ( Right) Pneumococcal (2 years and up) Lot #: [id number] Administered on:19-Jan-2014 Comments: Site: Deltoid ( Right); Admin by Antoinette Sheets RN Quadrivalent Influenza Vaccine for 3 yrs & up. 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 @ [employer] No Drug Use Non Smoker/No Tobacco Use Vital Signs Date Test Result Details 01-Feb-2014 08:25 Temperature 97.1 f Comments: Method: [...] 49.54 kg/m2 Body Surface Area Calculated 2.57 11-Aug-2013 10:57 Temperature 98.6 f Comments: Method: [...] DAY 1 Treatment Plan * THEODORE CULTURE-URINE (10127); Ordered: 07/04/2013 * Chem 8 BMP (00380); Ordered: 12/24/2012; Note: STANDING ORDER * CBC (49435); Ordered: 12/21/2012 * Chem 8 BMP (80737); Ordered: 12/21/2012 * VITAMIN D 25 (CALCIFEROL)(03703); Ordered: 05/31/2012 * CBC (96155); Ordered: 01/09/2012 * URINALYSIS, (07331); Ordered: 01/09/2012 * THEODORE CULTURE-URINE (54299); Ordered: 01/09/2012 * BASIC METABOLIC PANEL,BMP (34477); Ordered: 10/31/2011; Note: STANDING ORDER * PHOSPHORUS (68553); Ordered: 10/31/2011 * MAGNESIUM (84240); Ordered: 10/31/2011 * VANCOMYCIN, TROUGH (98011); Ordered: 10/27/2011; Note: STANDING ORDER-Do as directed by the pharmacist. * Chem 8 BMP (72534); Ordered: 10/27/2011; Note: STANDING ORDER * Chem 8 BMP (54501); Ordered: 09/23/2011 * IRON PROFILE*; Ordered: 05/29/2011 * HGB A1C (24579); Ordered: 05/29/2011 * LIPID PANEL (68256); Ordered: 05/28/2011 * PSA (PROSTATE SPECIFIC ANTIGEN) (74258); Ordered: 05/28/2011 * METABOLIC PANEL, BASIC (92222); Ordered: 05/28/2011 * LIVER FUNCTION PANEL* (93637); Ordered: 05/28/2011 * VITAMIN B-12 (CYANOCOBALAMIN) (00039); Ordered: 05/28/2011 * TSH (THYROID STIMULATING HORMONE) (90914); Ordered: 05/28/2011 * VITAMIN D 25 (CALCIFEROL)(83966); Ordered: 05/28/2011 * MAGNESIUM (28278); Ordered: 05/28/2011 * EKG (43965); Ordered: 05/28/2011 * CBC & PLATELETS (AUTO) (53290); Ordered: 05/28/2011 * LIVER FUNCTION PANEL* (40563); Ordered: 01/16/2010 * CBC (75773); Ordered: 01/16/2010 * LIPID PANEL (64937); Ordered: 01/16/2010 * BASIC METABOLIC PANEL,BMP (84239); Ordered: 01/16/2010 * BASIC METABOLIC PANEL,BMP (53736); Ordered: 01/19/2009 * BASIC METABOLIC PANEL,BMP (11751); Ordered: 12/20/2008 * TSH (THYROID STIMULATING HORMONE) (88217); Ordered: 12/15/2008 * VITAMIN D, 25 (CALCIFEROL) (88621); Ordered: 12/15/2008 * CBC (01543); Ordered: 12/15/2008 * BASIC METABOLIC PANEL,BMP (31038); Ordered: 12/15/2008 * LIVER FUNCTION PANEL* (84859); Ordered: 12/15/2008 * LIPID PANEL (36492); Ordered: 12/15/2008 Advance Directives No Advance Directives available. Encounters Office Visit - Edema (782.3 | R60.9), UR INARY FREQUENCY (788.41 | R35.0) Encounter Reason: General Exam, Follow Up - Note for "Follow up general exam": Pt here from [facility] for 60 day check up. no concerns.[facility] On 01-Feb-2014 08:24 Nurse visit (Non-Billable) - Pneumococca l vaccination 5 years + [facility] On 31-Jan-2014 15:21 Nurse visit (Non-Billable) - FLU VACCINE - QUADRAVALENT (Renamed from NEED FOR IMMUNIZATION AGAINST INFLUENZA) (V04.81 | Z23) [facility] On 31-Jan-2014 14:06 Medication Note - HYPERTENSION (401.9 | I10) [facility] On 24-Aug-2013 10:17 Office Visit - Chronic [...] for "General - Male": Pt lives at [facility]. No chest pain or shortness of air. Pt has hx of prostate cancer. Is currently in treatment. Never had screening colonoscopy. No family history of colon cancer. No blood in stools.[facility] On 11-Aug-2013 10:54 Annotation/Addendum - Unspecified Diagno sis [facility] On 04-Jul-2013 09:55 Office Visit - Obstructive sleep apnea, Chronic atrial fibrillation (Renamed from Atrial fibrillation, chronic) (427.31 | I48.2), Hypertension, benign, Edema (782.3 | R60.9) En[facility] Reason[facility] 22-Feb-2013 13:29 Office Visit - Edema, Obstructive sleep apnea, Hypertension, benign, Chronic atrial fibrillation Encounter Reason: [facility] 25-Jan-2013 13:25 Office Visit - Edema, Obstructive sleep apnea, Hypertension, benign, Renal insufficiency Encounter Reason[facility] 12-Jan-2013 13:24 Office Visit - Edema, Heart failure, rig ht, Obstructive sleep apnea Encounter Reason: [facility] 29-Dec-2012 13:26 Office Visit - Cellulitis and abscess of leg, Heart failure, right, Edema Encounter Reason[facility] 24-Dec-2012 13:42 Office Visit - Cellulitis and abscess of leg, Heart failure, right, Edema Encounter Reason: Cellulitis - The last clinic visit was 1 week(s) ago. Symptoms include swelling, tenderness and drainage. Symptoms are located on the right leg. The symptoms occur constantly. The patient describes this as worsening. [facility] On 21-Dec-2012 13:38 Medication Note - ANXIETY AND DEPRESSION [facility] On 07-Dec-2012 11:57 Medication Note - Delusional disorder [facility] On 25-Nov-2012 13:07 Office Visit - Chronic atrial fibrillati on, Obstructive sleep apnea, Delusional disorder [facility] On 10:19 Office Visit - Hypertension, benign, Chr onic atrial fibrillation, Obstructive sleep apnea, Delusional disorder Encounter Reason: Medication Review/Refill - Note for "Medication Review/Refill": Suzan dose [facility]Select [facility] 10:37 Medication Note - Hypertension, benign [facility] On 29-Jun-2012 13:53 Annotation/Addendum - Vitamin B 12 defic iency [facility] On 22-Jun-2012 17:11 Annotation/Addendum - Heart failure, rig ht [facility] On 07-Jun-2012 11:12 Annotation/Addendum - Vitamin D deficien cy [facility] On 31-May-2012 16:31 Annotation/Addendum - Hypokalemia [facility] On 16-Mar-2012 08:49 Medication Note - Chronic atrial fibrill ation [facility] On 30-Jan-2012 09:29 Annotation/Addendum [facility] On 19-Jan-2012 10:00 Annotation/Addendum - Hematuria [facility] On 09-Jan-2012 13:02 Annotation/Addendum - Edema [facility] On 25-Nov-2011 10:08 Office Visit - Fibrillation, atrial, Troy ma, Obstructive sleep apnea, Hypertension, benign, Type II diabetes mellitus [facility] On 18-Nov-2011 09:35 Office Visit - Edema, Cellulitis and abs cess of leg, Obstructive sleep apnea, Fibrillation, atrial, Stasis dermatitis, Conjunctivitis NOS [facility] On 05-Nov-2011 09:41 Office Visit - Cellulitis and abscess of leg, Chronic kidney disease, stage III (585.3), Edema, Obstructive sleep apnea, Hypertension, benign, Fibrillation, atrial, Encounter for long-term use of other medications (V58.69) [facility] On 10:35 Office Visit - Edema, Cellulitis and abs cess of leg, Stasis dermatitis, Chronic kidney disease, stage III (585.3), Encounter for long-term use of other medications (V58.69), Noninfectious lymphedema Encounter Reason: Ankle Swelling - Patient has had swelling in bilateral feet and ankles with rednessand abdomen has some [facility] Annotation/Addendum - Chronic kidney dis ease, stage III (585.3) [facility] On 09:38 Annotation/Addendum - Renal failure , ac arthur on chronic (584.9) [facility] On 10:57 Office Visit - Fibrillation, atrial, Typ e II diabetes mellitus, Obstructive sleep apnea, Hypertension, benign [facility] On 09:52 Annotation/Addendum [facility] On 10:43 Office Visit - Type II diabetes mellitus , Fibrillation, atrial, Hypertension, benign, Obstructive sleep apnea [facility] On 10:34 Medication Note - Unspecified Diagnosis [facility] On 22-Jul-2011 08:19 Annotation/Addendum - Type II diabetes m janell, Iron deficiency anemia [facility] On 29-May-2011 11:55 Office Visit - Fibrillation, atrial [facility] On 28-May-2011 11:17 Office Visit - Hypertension, benign, Danelle maliha pulmonary hypertension, Obstructive sleep apnea, Edema, Fibrillation, atrial, Encounter for long-term use of other medications (V58.69), Magnesium deficiency, Osteomalacia, Malaise and fatigue, Benign prostatic hypertrophy with urinary retention, CA of prostate, Hypercholesterolemia [facility] On 28-May-2011 11:01 Annotation/Addendum [facility] On 20-May-2011 09:13 Office Visit-Pre Admission - [...] pain and edema. [facility] On 16-May-2011 10:42 Office Visit - Acute [...] relieved by sitting up.[facility] On 08-May-2011 08:38 Office Visit - Hypertension, [...] flow of urine. [facility] On 16-Jan-2010 14:29 Office Visit - Edema, Hypertension, sandoval gn, Obstructive sleep apnea, Primary pulmonary hypertension, Asthma [facility] On 19-Jan-2009 09:37 Office Visit - Need for prophylactic vac cination and inoculation against combinations of disease, Edema, Hypertension, benign, Obstructive sleep apnea, Primary pulmonary hypertension, Asthma [facility] On 20-Dec-2008 13:48 Office Visit - Obstructive sleep apnea, Primary pulmonary hypertension, Edema, Malaise and fatigue, Hypertension, benign, Hypercholesterolemia, Encounter for long-term use of other medications (V58.69), Urinary incontinence [facility] On 15-Dec-2008 10:50
--- OUTSIDE RECORDS SUMMARY | 2019-09-03 19:06 | XMS REPORT | Continuity of Care Document ---
Author Author [facility] Address [address] [place] [address] Phone Care Team Providers Care Clinical Unit Coordinator Name Role Phone Kavya SEGOVIA, Hemanth PP Leela LAUGHLINN, Rubia Unavailable Homar Clifton Unavailable [phone] Dick LAUGHLINN, Sara Unavailable Lorna MCDONOUGH, Mau Ramos Unavailable [...] 08/09/13 Called to Jay at [facility] ESCITALOPRAM OXALATE, 20MG (Oral Tablet) 1 [...] Change to 360mg ER daily-[facility]MAN DILTIAZEM HCL, 90MG [...] vasectomy in 1988; open prostatectomy attempt by [facility] in 2005 but due to fear of cutting nerves, they backed off on removing the prostate. 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 Non 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/No Tobacco Use [...] DAY 1 Treatment Plan * THEODORE CULTURE-URINE (34819); Ordered: 07/04/2013 * Chem 8 BMP (33410); Ordered: 12/24/2012; Note: STANDING ORDER * CBC (69161); Ordered: 12/21/2012 * Chem 8 BMP (56747); Ordered: 12/21/2012 * VITAMIN D 25 (CALCIFEROL)(70004); Ordered: 05/31/2012 * CBC (09233); Ordered: 01/09/2012 * URINALYSIS, (92408); Ordered: 01/09/2012 * THEODORE CULTURE-URINE (11959); Ordered: 01/09/2012 * BASIC METABOLIC PANEL,BMP (87260); Ordered: 10/31/2011; Note: STANDING ORDER * PHOSPHORUS (93144); Ordered: 10/31/2011 * MAGNESIUM (97050); Ordered: 10/31/2011 * VANCOMYCIN, TROUGH (18250); Ordered: 10/27/2011; Note: STANDING ORDER-Do as directed by the pharmacist. * Chem 8 BMP (60978); Ordered: 10/27/2011; Note: STANDING ORDER * Chem 8 BMP (46315); Ordered: 09/23/2011 * IRON PROFILE*; Ordered: 05/29/2011 * HGB A1C (28271); Ordered: 05/29/2011 * LIPID PANEL (36402); Ordered: 05/28/2011 * PSA (PROSTATE SPECIFIC ANTIGEN) (32720); Ordered: 05/28/2011 * METABOLIC PANEL, BASIC (56088); Ordered: 05/28/2011 * LIVER FUNCTION PANEL* (62257); Ordered: 05/28/2011 * VITAMIN B-12 (CYANOCOBALAMIN) (49924); Ordered: 05/28/2011 * TSH (THYROID STIMULATING HORMONE) (76650); Ordered: 05/28/2011 * VITAMIN D 25 (CALCIFEROL)(85240); Ordered: 05/28/2011 * MAGNESIUM (22900); Ordered: 05/28/2011 * EKG (99493); Ordered: 05/28/2011 * CBC & PLATELETS (AUTO) (17280); Ordered: 05/28/2011 * LIVER FUNCTION PANEL* (48508); Ordered: 01/16/2010 * CBC (71391); Ordered: 01/16/2010 * LIPID PANEL (58726); Ordered: 01/16/2010 * BASIC METABOLIC PANEL,BMP (98823); Ordered: 01/16/2010 * BASIC METABOLIC PANEL,BMP (05234); Ordered: 01/19/2009 * BASIC METABOLIC PANEL,BMP (59301); Ordered: 12/20/2008 * TSH (THYROID STIMULATING HORMONE) (60624); Ordered: 12/15/2008 * VITAMIN D, 25 (CALCIFEROL) (54514); Ordered: 12/15/2008 * CBC (79443); Ordered: 12/15/2008 * BASIC METABOLIC PANEL,BMP (46035); Ordered: 12/15/2008 * LIVER FUNCTION PANEL* (12136); Ordered: 12/15/2008 * LIPID PANEL (80159); Ordered: 12/15/2008 Advance Directives No Advance Directives available. Encounters Medication Note - HYPERTENSION (401.9 | I10) [facility] On 24-Aug-2013 10:17 Office Visit [...] colon cancer. No blood in stools.[facility] On 11-Aug-2013 10:54 Annotation/Addendum - Unspecified Diagno sis [facility] On 04-Jul-2013 09:55 Office Visit - Obstructive sleep apnea, Chronic atrial fibrillation (Renamed from Atrial fibrillation, chronic) (427.31 | I48.2), Hypertension, benign, Edema (782.3 | R60.9) [facility] 22-Feb-2013 13:29 Office Visit - Edema, Obstructive sleep apnea, Hypertension, benign, Chronic atrial fibrillation Encounter Reason: Review lab results[facility] On 25-Jan-2013 13:25 Office Visit - Edema, Obstructive sleep apnea, Hypertension, benign, Renal insufficiency Encounter Reason: [facility] 12-Jan-2013 13:24 Office Visit - Edema, Heart failure, rig ht, Obstructive sleep apnea Encounter Reason: [facility] 29-Dec-2012 13:26 Office Visit - Cellulitis and abscess of leg, Heart failure, right, Edema Encounter Reason: [facility] 24-Dec-2012 13:42 Office Visit - Cellulitis and abscess of leg, Heart failure, right, Edema Encounter Reason: Cellulitis - The last clinic visit was 1 week(s) ago. Symptoms include swelling, tenderness and drainage. Symptoms are located on the right leg. The symptoms occur constantly. The patient describes this as worsening. [facility] On 21-Dec-2012 13:38 Medication Note - ANXIETY AND DEPRESSION [facility] On 07-Dec-2012 11:57 Medication Note - Delusional disorder [facility] On 25-Nov-2012 13:07 Office Visit - Chronic atrial fibrillati on, Obstructive sleep apnea, Delusional disorder [facility] On 10:19 Office Visit - Hypertension, benign, Chr onic atrial fibrillation, Obstructive sleep apnea, Delusional disorder Encounter Reason: Medication Review/Refill - Note for "Medication Review/Refill": Suzan dose reductionNov[facility] Health [facility] Center On 10:37 Medication Note - Hypertension, benign [facility] On 29-Jun-2012 13:53 Annotation/Addendum - Vitamin B 12 defic iency [facility] On 22-Jun-2012 17:11 Annotation/Addendum - Heart failure, rig ht [facility] On 07-Jun-2012 11:12 Annotation/Addendum - Vitamin D deficien cy [facility] On 31-May-2012 16:31 Annotation/Addendum - Hypokalemia [facility] On 16-Mar-2012 08:49 Medication Note - Chronic atrial fibrill ation [facility] On 30-Jan-2012 09:29 Annotation/Addendum [facility] On 19-Jan-2012 10:00 Annotation/Addendum - Hematuria [facility] On 09-Jan-2012 13:02 Annotation/Addendum - Edema [facility] On 25-Nov-2011 10:08 Office Visit - Fibrillation, atrial, [place] ma, Obstructive sleep apnea, Hypertension, benign, Type II diabetes mellitus [facility] On 18-Nov-2011 09:35 Office Visit - Edema, Cellulitis and abs cess of leg, Obstructive sleep apnea, Fibrillation, atrial, Stasis dermatitis, Conjunctivitis NOS [facility] On 05-Nov-2011 09:41 Office Visit - Cellulitis and abscess of leg, Chronic kidney disease, stage III (585.3), Edema, Obstructive sleep apnea, Hypertension, benign, Fibrillation, atrial, Encounter for long-term use of other medications (V58.69) [facility] On 10:35 Office Visit - Edema, Cellulitis and abs cess of leg, Stasis dermatitis, Chronic kidney disease, stage III (585.3), Encounter for long-term use of other medications (V58.69), Noninfectious lymphedema Encounter Reason: Ankle Swelling - Patient has had swelling in bilateral feet and ankles with rednessand abdomen has some redness to it [facility] On 10:18 Annotation/Addendum - Chronic kidney dis ease, stage III (585.3) [facility] On 09:38 Annotation/Addendum - Renal failure , ac arthur on chronic (584.9) [facility] On 10:57 Office Visit - Fibrillation, atrial, Typ e II diabetes mellitus, Obstructive sleep apnea, Hypertension, benign [facility] On 09:52 Annotation/Addendum [facility] On 10:43 Office Visit - Type II diabetes mellitus , Fibrillation, atrial, Hypertension, benign, Obstructive sleep apnea [facility] On 10:34 Medication Note - Unspecified Diagnosis [facility] On 22-Jul-2011 08:19 Annotation/Addendum - Type II diabetes m ellitus, Iron deficiency anemia [facility] On 29-May-2011 11:55 Office Visit - Fibrillation, atrial [facility] On 28-May-2011 11:17 Office Visit - Hypertension, benign, Danelle maliha pulmonary hypertension, Obstructive sleep apnea, Edema, Fibrillation, atrial, Encounter for long-term use of other medications (V58.69), Magnesium deficiency, Osteomalacia, Malaise and fatigue, Benign prostatic hypertrophy with urinary retention, CA of prostate, Hypercholesterolemia [facility] On 28-May-2011 11:01 Annotation/Addendum [facility] On 20-May-2011 09:13 Office Visit-Pre [...] include leg pain and edema. [facility] On 16-May-2011 10:42 Office Visit [...] Symptoms are relieved by sitting up.[facility] On 08-May-2011 08:38 Office Visit [...] control the flow of urine. [facility] On 16-Jan-2010 14:29 Office Visit - Edema, Hypertension, sandoval gn, Obstructive sleep apnea, Primary pulmonary hypertension, Asthma [facility] On 19-Jan-2009 09:37 Office Visit - Need for prophylactic vac cination and inoculation against combinations of disease, Edema, Hypertension, benign, Obstructive sleep apnea, Primary pulmonary hypertension, Asthma [facility] On 20-Dec-2008 13:48 Office Visit - Obstructive sleep apnea, Primary pulmonary hypertension, Edema, Malaise and fatigue, Hypertension, benign, Hypercholesterolemia, Encounter for long-term use of other medications (V58.69), Urinary incontinence [facility] On 15-Dec-2008 10:50
--- OUTSIDE RECORDS SUMMARY | 2019-09-03 19:07 | XMS REPORT | Continuity of Care Document ---
Author Author [facility] Address [address] [place] [address] Phone Care Team Providers Care Professional Nurse Name Role Phone Younger Hemanth SEGOVIA PP Rubia Swenson LPN Unavailable Josh Horton DOHomar Unavailable [phone] Mau Pereira Unavailable Unavailable Ethel Orozco CMA [...] Change to 360mg ER daily-[facility] ESCITALOPRAM OXALATE, 20MG (Oral Tablet) [...] wisdom teet h removed in 1983 in [facility]; lap cholecystectomy 197; vasectomy in 1988; open prostatectomy attempt by [facility] in 2005 but due to fear of cutting nerves, they backed off on removing the prostate. 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 @ [employer] No Drug Use Non Smoker/No Tobacco Use [...] DAY 1 Treatment Plan * THEODORE CULTURE-URINE (22392); Ordered: 07/04/2013 * Chem 8 BMP (26782); Ordered: 12/24/2012; Note: STANDING ORDER * CBC (28767); Ordered: 12/21/2012 * Chem 8 BMP (45367); Ordered: 12/21/2012 * VITAMIN D 25 (CALCIFEROL)(34202); Ordered: 05/31/2012 * CBC (16893); Ordered: 01/09/2012 * URINALYSIS, (36685); Ordered: 01/09/2012 * THEODORE CULTURE-URINE (95047); Ordered: 01/09/2012 * BASIC METABOLIC PANEL,BMP (08588); Ordered: 10/31/2011; Note: STANDING ORDER * PHOSPHORUS (71452); Ordered: 10/31/2011 * MAGNESIUM (84599); Ordered: 10/31/2011 * VANCOMYCIN, TROUGH (09287); Ordered: 10/27/2011; Note: STANDING ORDER-Do as directed by the pharmacist. * Chem 8 BMP (15762); Ordered: 10/27/2011; Note: STANDING ORDER * Chem 8 BMP (16427); Ordered: 09/23/2011 * IRON PROFILE*; Ordered: 05/29/2011 * HGB A1C (70839); Ordered: 05/29/2011 * LIPID PANEL (99713); Ordered: 05/28/2011 * PSA (PROSTATE SPECIFIC ANTIGEN) (40802); Ordered: 05/28/2011 * METABOLIC PANEL, BASIC (62701); Ordered: 05/28/2011 * LIVER FUNCTION PANEL* (48391); Ordered: 05/28/2011 * VITAMIN B-12 (CYANOCOBALAMIN) (84725); Ordered: 05/28/2011 * TSH (THYROID STIMULATING HORMONE) (75322); Ordered: 05/28/2011 * VITAMIN D 25 (CALCIFEROL)(21563); Ordered: 05/28/2011 * MAGNESIUM (93289); Ordered: 05/28/2011 * EKG (79209); Ordered: 05/28/2011 * CBC & PLATELETS (AUTO) (04576); Ordered: 05/28/2011 * LIVER FUNCTION PANEL* (50562); Ordered: 01/16/2010 * CBC (72822); Ordered: 01/16/2010 * LIPID PANEL (85354); Ordered: 01/16/2010 * BASIC METABOLIC PANEL,BMP (34948); Ordered: 01/16/2010 * BASIC METABOLIC PANEL,BMP (22929); Ordered: 01/19/2009 * BASIC METABOLIC PANEL,BMP (37643); Ordered: 12/20/2008 * TSH (THYROID STIMULATING HORMONE) (61773); Ordered: 12/15/2008 * VITAMIN D, 25 (CALCIFEROL) (88092); Ordered: 12/15/2008 * CBC (16276); Ordered: 12/15/2008 * BASIC METABOLIC PANEL,BMP (94463); Ordered: 12/15/2008 * LIVER FUNCTION PANEL* (85294); Ordered: 12/15/2008 * LIPID PANEL (33243); Ordered: 12/15/2008 Advance Directives No Advance Directives [...] (782.3 | R60.9) [facility]: [facility]29 Office Visit [...] rednessand abdomen has some [facility]ness to it [facility] 10:18 Annotation/Addendum - Chronic kidney dis ease, stage III (585.3) [facility] On 09:38 Annotation/Addendum - Renal failure , ac arthur on chronic (584.9) [facility] [...]
--- OUTSIDE RECORDS SUMMARY | 2019-09-03 19:07 | XMS REPORT | Continuity of Care Document ---
Author Author [facility] [employer] [facility] Address [address] [place] [address] Phone Care Team Providers Care Clinical Unit Educator Name Role Phone Younger Hemanth SEGOVIA PP Leela LAUGHLINN, Rubia Unavailable Josh Horton DOHomar Unavailable [phone] Dick HAND HOSE CUTTER, Sara Unavailable Lorna MCDONOUGH, Mau Ramos Unavailable [...] 08/09/13 Called to Jay at [facility] ESCITALOPRAM OXALATE, 20MG (Oral Tablet) 1 [...] Change to 360mg ER daily-[facility]OLMAN DILTIAZEM HCL, 90MG (Oral [...] wisdom teet h removed in 1983 in [facility]; lap cholecystectomy 197; vasectomy in 1988; open prostatectomy attempt by [facility] in 2005 but due to fear of cutting nerves, they backed off on removing the prostate. Status: Active Procedures Procedure Dates Details FOLLOW UP BY PCP Ordered:08-May-2011 IMMUNIZ ADMNIN, 1 VAC, SNGL/COMBO (00108) Ordered: 9 TDAP VACCINE IM, >7 YEARS (56556) Ordered:20-Dec-2008 Immunization Name Dates Details Influenza (3 years and up) Lot #: [id number] Administered on:13-Jan-2012 Comments: Site: Deltoid (L eft); Given at [facility] by Sherri PERRY Influenza (3 years and up) Lot #: [id number] Administered on:28-Dec-2012 Comments: Site: Deltoid ( Right) Tdap (7 years and up) Lot #: [id number] Administered on:20-Dec-2008 Comments: Site: Deltoid ( Left) [...] status Comments: 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 @ [employer] No Drug Use Non Smoker/No Tobacco [...] DAY 1 Treatment Plan * THEODORE CULTURE-URINE (81420); Ordered: 07/04/2013 * Chem 8 BMP (06480); Ordered: 12/24/2012; Note: STANDING ORDER * CBC (87906); Ordered: 12/21/2012 * Chem 8 BMP (48701); Ordered: 12/21/2012 * VITAMIN D 25 (CALCIFEROL)(79989); Ordered: 05/31/2012 * CBC (53451); Ordered: 01/09/2012 * URINALYSIS, (10759); Ordered: 01/09/2012 * THEODORE CULTURE-URINE (18203); Ordered: 01/09/2012 * BASIC METABOLIC PANEL,BMP (30619); Ordered: 10/31/2011; Note: STANDING ORDER * PHOSPHORUS (13852); Ordered: 10/31/2011 * MAGNESIUM (54477); Ordered: 10/31/2011 * VANCOMYCIN, TROUGH (35754); Ordered: 10/27/2011; Note: STANDING ORDER-Do as directed by the pharmacist. * Chem 8 BMP (47027); Ordered: 10/27/2011; Note: STANDING ORDER * Chem 8 BMP (99107); Ordered: 09/23/2011 * IRON PROFILE*; Ordered: 05/29/2011 * HGB A1C (55986); Ordered: 05/29/2011 * LIPID PANEL (00998); Ordered: 05/28/2011 * PSA (PROSTATE SPECIFIC ANTIGEN) (07126); Ordered: 05/28/2011 * METABOLIC PANEL, BASIC (71080); Ordered: 05/28/2011 * LIVER FUNCTION PANEL* (40581); Ordered: 05/28/2011 * VITAMIN B-12 (CYANOCOBALAMIN) (71422); Ordered: 05/28/2011 * TSH (THYROID STIMULATING HORMONE) (88791); Ordered: 05/28/2011 * VITAMIN D 25 (CALCIFEROL)(82376); Ordered: 05/28/2011 * MAGNESIUM (24360); Ordered: 05/28/2011 * EKG (29619); Ordered: 05/28/2011 * CBC & PLATELETS (AUTO) (70707); Ordered: 05/28/2011 * LIVER FUNCTION PANEL* (23022); Ordered: 01/16/2010 * CBC (07639); Ordered: 01/16/2010 * LIPID PANEL (47065); Ordered: 01/16/2010 * BASIC METABOLIC PANEL,BMP (15183); Ordered: 01/16/2010 * BASIC METABOLIC PANEL,BMP (08777); Ordered: 01/19/2009 * BASIC METABOLIC PANEL,BMP (45182); Ordered: 12/20/2008 * TSH (THYROID STIMULATING HORMONE) (43059); Ordered: 12/15/2008 * VITAMIN D, 25 (CALCIFEROL) (53289); Ordered: 12/15/2008 * CBC (57487); Ordered: 12/15/2008 * BASIC METABOLIC PANEL,BMP (86199); Ordered: 12/15/2008 * LIVER FUNCTION PANEL* (89419); Ordered: 12/15/2008 * LIPID PANEL (96315); Ordered: 12/15/2008 Advance Directives No Advance Directives available. Encounters Medication Note - HYPERTENSION (401.9 | I10) [facility] On 24-Aug-2013 10:17 Office Visit [...] No blood in stools.[facility] On 11-Aug-2013 10:54 Annotation/Addendum - Unspecified Diagno sis [facility] On 04-Jul-2013 09:55 Office Visit - Obstructive sleep apnea, Chronic atrial fibrillation (Renamed from Atrial fibrillation, chronic) (427.31 | I48.2), Hypertension, benign, Edema (782.3 | R60.9) [facility]29 Office Visit - Edema, Obstructive sleep apnea, Hypertension, benign, Chronic atrial fibrillation Encounter Reason: [facility] 25[facility]Jan-2013 13:25 Office Visit - Edema, Obstructive sleep apnea, Hypertension, benign, Renal insufficiency Encounter Reason[facility] 12-Jan-2013 13:24 Office Visit - Edema, Heart failure, rig ht, Obstructive sleep apnea Encounter Reason[facility] 29-Dec-2012 13:26 Office Visit - Cellulitis and abscess of leg, Heart failure, right, Edema Encounter Reason[facility]Dec[facility]2012 13:42 Office Visit - Cellulitis and abscess of leg, Heart failure, right, Edema Encounter Reason: Cellulitis - The last clinic visit was 1 week(s) ago. Symptoms include swelling, tenderness and drainage. Symptoms are located on the right leg. The symptoms occur constantly. The patient describes this as worsening. [facility] On 21-Dec-2012 13:38 Medication Note - ANXIETY AND DEPRESSION [facility] On 07-Dec-2012 11:57 Medication Note - Delusional disorder [facility] On 25-Nov-2012 13:07 Office Visit - Chronic atrial fibrillati on, Obstructive sleep apnea, Delusional disorder [facility] On 10:19 Office Visit - Hypertension, benign, Chr onic atrial fibrillation, Obstructive sleep apnea, Delusional disorder Encounter Reason: Medication Review/Refill - Note for "Medication Review/Refill": Suzan dose reductionC[facility] On 10:37 Medication Note - Hypertension, benign [facility] On 29-Jun-2012 13:53 Annotation/Addendum - Vitamin B 12 defic iency [facility] On 22-Jun-2012 17:11 Annotation/Addendum - Heart failure, rig ht [facility] On 07-Jun-2012 11:12 Annotation/Addendum - Vitamin D deficien cy [facility] On 31-May-2012 16:31 Annotation/Addendum - Hypokalemia [facility] On 16-Mar-2012 08:49 Medication Note - Chronic atrial fibrill ation [facility] On 30-Jan-2012 09:29 Annotation/Addendum [facility] On 19-Jan-2012 10:00 Annotation/Addendum - Hematuria [facility] On 09-Jan-2012 13:02 Annotation/Addendum - Edema [facility] On 25-Nov-2011 10:08 Office Visit - Fibrillation, atrial, Troy ma, Obstructive sleep apnea, Hypertension, benign, Type II diabetes mellitus [facility] On 18-Nov-2011 09:35 Office Visit - Edema, Cellulitis and abs cess of leg, Obstructive sleep apnea, Fibrillation, atrial, Stasis dermatitis, Conjunctivitis NOS [facility] On 05-Nov-2011 09:41 Office Visit - Cellulitis and abscess of leg, Chronic kidney disease, stage III (585.3), Edema, Obstructive sleep apnea, Hypertension, benign, Fibrillation, atrial, Encounter for long-term use of other medications (V58.69) [facility] On 10:35 Office Visit - Edema, Cellulitis and abs cess of leg, Stasis dermatitis, Chronic kidney disease, stage III (585.3), Encounter for long-term use of other medications (V58.69), Noninfectious lymphedema Encounter Reason: Ankle Swelling - Patient has had swelling in bilateral feet and ankles with rednessand abdomen has some redness to it [facility] Annotation/Addendum - Chronic kidney dis ease, stage III (585.3) [facility] On 09:38 Annotation/Addendum - Renal failure , ac arthur on chronic (584.9) [facility] On 10:57 Office Visit - Fibrillation, atrial, Typ e II diabetes mellitus, Obstructive sleep apnea, Hypertension, benign [facility] On 09:52 Annotation/Addendum [facility] On 10:43 Office Visit - Type II diabetes mellitus , Fibrillation, atrial, Hypertension, benign, Obstructive sleep apnea [facility] On 10:34 Medication Note - Unspecified Diagnosis [facility] On 22-Jul-2011 08:19 Annotation/Addendum - Type II diabetes m janell, Iron deficiency anemia [facility] On 29-May-2011 11:55 Office Visit - Fibrillation, atrial [facility] On 28-May-2011 11:17 Office Visit - Hypertension, benign, Danelle maliha pulmonary hypertension, Obstructive sleep apnea, Edema, Fibrillation, atrial, Encounter for long-term use of other medications (V58.69), Magnesium deficiency, Osteomalacia, Malaise and fatigue, Benign prostatic hypertrophy with urinary retention, CA of prostate, Hypercholesterolemia [facility] On 28-May-2011 11:01 Annotation/Addendum [facility] On 20-May-2011 09:13 Office Visit-Pre [...] edema. [facility] On 16-May-2011 10:42 Office Visit [...] relieved by sitting up.[facility] On 08-May-2011 08:38 Office Visit [...] urine. [facility] On 16-Jan-2010 14:29 Office Visit - Edema, Hypertension, sandoval gn, Obstructive sleep apnea, Primary pulmonary hypertension, Asthma [facility] On 19-Jan-2009 09:37 Office Visit - Need for prophylactic vac cination and inoculation against combinations of disease, Edema, Hypertension, benign, Obstructive sleep apnea, Primary pulmonary hypertension, Asthma [facility] On 20-Dec-2008 13:48 Office Visit - Obstructive sleep apnea, Primary pulmonary hypertension, Edema, Malaise and fatigue, Hypertension, benign, Hypercholesterolemia, Encounter for long-term use of other medications (V58.69), Urinary incontinence [facility] On 15-Dec-2008 10:50
--- OUTSIDE RECORDS SUMMARY | 2019-09-03 19:08 | XMS REPORT | Continuity of Care Document ---
Author Organization Unknown Address Unknown Phone Unavailable Allergies Active Description Code Type Severity Reaction Onset Reported/Identified Relationship to Patient Clinical Status Yes NKA NKA Drug Allergy N/A N/A Confirmed or Hunter ified Yes No known allergies ##NOMEN##,AL1,ceStruct,allergy,[id number] Drug N/A N/A Yes ASPIRIN 1191 N/A N/A Yes NKDA NKDA N/A N/A Yes No Known Allergies Mis cellaneous Allergy Unknown 05/16/2011 Yes No Known Allergies No Known Allergies Miscellaneous Allergy Unknown N/A 05/16/2011 Yes No Known Allergies No Known Allergies Miscellaneous Allergy Unknown unknown 06/10/2018 Yes No Known Drug Allergies [id number] Drug Allergy Unknown N/A 08/18/2018 Yes No Known Drug Allergy NKDA N/A N/A 01/01/2019 Medications Medication Packaging Start Date St op Date Route Dosage Sig Rivaroxaban 20 MG 10/17/2011 20 MG MARIA D Y METOPROLOL TARTRATE 50 MG 10/17/2011 06/09/2018 PO 25 MG M Oxybutynin Chloride 5 MG 10/17/2011 5 MG TID FAMOTIDINE 20 MG 10/17/2011 06/09/2018 PO 20 MG M DILTIAZEM HCL 120 MG 10/17/2011 06/09/2018 PO 180 MG M Atorvastatin Calcium 40 MG 10/17/2011 40 MG HS FUROSEMIDE 80 MG 12/25/2011 06/09/2018 PO 40 MG M TRIAMCINOLONE ACETONIDE 15 GM 12/25/2011 06/09/2018 TP 1 APPL M Aripiprazole 15 MG 06/23/2012 30 MG MARIA D Y Potassium Chloride 20 MEQ 06/23/2012 30 MEQ KORINA LY CYANOCOBALAMIN (VITAMIN B-12) 1 000 06/23/2012 06/09/2018 PO 2000 MCG M Diltiazem HCl 180 MG 12/20/2012 240 MG KORINA LY PSYLLIUM HUSK/ASPARTAME 3.4 GM 12/20/2012 06/09/2018 PO 3.4 GM M POLYETHYLENE GLYCOL 3350 17 GM 12/20/2012 06/09/2018 PO 17 GM M Diltiazem HCl 180 MG 12/20/2012 240 MG KORINA LY Escitalopram Oxalate 20 MG 12/20/2012 20 MG DAILY Acetaminophen 325 MG 12/20/2012 1-2 TAB Q4 -6PRN Sennosides 8.6 MG 12/20/2012 8.6 MG BID LISINOPRIL 10 MG 12/20/2012 06/09/2018 PO 5 MG M Magnesium Hydroxide 400 MG/5 ML 12/20/2012 30 ML DAILYPRN DILTIAZEM HCL 180 MG 12/20/2012 06/09/2018 PO 240 MG M Mirtazapine 15 MG 12/20/2012 15 MG HS Docusate Sodium 100 MG 10/16/2014 100 MG KORINA LY QUETIAPINE FUMARATE 25 MG 10/16/2014 06/09/2018 PO 25 MG M Lisinopril 2.5 MG 10/16/2014 2.5 MG KORINA LY LISINOPRIL 2.5 MG 10/16/2014 06/09/2018 PO 2.5 MG M OXYBUTYNIN CHLORIDE 5 MG 02/14/2015 06/09/2018 PO 5 MG M Tamsulosin Hcl 0.4 MG 02/14/2015 0.4 MG KORINA LY NYSTATIN 1 EACH 02/14/2015 06/09/2018 TP 1 APPL M FAMOTIDINE 20 MG 02/14/2015 06/09/2018 PO 20 MG M TOLNAFTATE 108 GM 02/14/2015 06/09/2018 TP 1 SPRAY M Hypromellose 0.4 % 02/16/2015 15 ML PRN Polyethylene Glycol 3350 17 GRAM 02/16/2015 17 GM DAILY Furosemide 40 MG 02/16/2015 80 MG MARIA D Y Quetiapine Fumarate 100 MG 02/16/2015 200 MG DAILY XARELTO 04/27/19 16 ORAL [id number] daily TYLENOL 04/27/19 16 ORAL [id number] every 4 hrs TINACTIN 016 External 1%1% daily SEROQUEL 016 ORAL [id number] daily SENNA 04/27/2015 ORAL 8.6MG8.6MG twice d aily REMERON 04/27/19 16 ORAL [id number] daily RANITIDINE HCL 0 04/27/2015 ORAL [id number] daily POTASSIUM CHLORIDE MICHELLE ER 04/27/2015 ORAL [id number] daily POLYETHYLENE GLYCOL 3350 04/27/2015 ORAL maria d y T PRN MILK OF MAGNESIA 04/27/2015 ORAL 1200MG/[id number]/15ML daily METOPROLOL TARTRATE 04/27/2015 ORAL 24PO03DT t wice daily METAMUCIL 2015 ORAL 28.3%28.3% daily LISINOPRIL 04/27 ORAL 2.5MG2.5MG daily LEXAPRO 04/27/19 16 ORAL [id number] daily FUROSEMIDE 04/27 ORAL [id number] daily FLOMAX 6 ORAL 0.4MG0.4MG daily EQL B-12 016 Oral [id number] korina ly DITROPAN XL 04/07 ORAL 5MG5MG three ti mes daily DILTIAZEM HCL ER 04/27/2015 ORAL [id number] daily COLACE 6 ORAL [id number] every 1 2 hrs ATORVASTATIN CALCIUM 04/27/2015 ORAL [id number] d aily ARTIFICIAL TEARS 04/27/2015 Ophthalmic 0.2-0.2-1%0.2-0.2-1% every 8 hrs ABILIFY 04/27/19 16 ORAL [id number] daily SENNA-S 05/04/19 16 ORAL 8.6-50MG8.6-50MG t wice daily POLYETHYLENE GLYCOL 3350 05/04/2015 ORAL twic e daily MIRALAX 05/04/19 16 ORAL Ranitidine Hcl 150 MG 08/15/2015 150 MG BID LOPERAMIDE HCL/SIMETHICONE 1 EACH 08/15/2015 06/09/2018 PO 1 EACH M RANITIDINE HCL 150 MG 08/15/2015 PO 150 MG M Metoprolol Tartrate 25 MG 12/12/2015 12.5 MG BI D Nystatin 201163 UNIT/GRAM 08/05/2016 1 APPL AD NYSTATIN 15 GM 0 08/05/2016 06/09/2018 TP 1 APPL M PROMETHAZINE HCL 25 MG 08/05/2016 06/09/2018 PO 25 MG M DEXTROMETHORPHAN HBR 15 MG/5 ML 10/15/2016 06/09/2018 PO 15 MG M Fluticasone Propionate 50 MCG/ACTUATION 10/15/2016 1 SPRAY BID Montelukast Sodium 10 MG 12/09/2016 10 MG MARIA D Y ERGOCALCIFEROL (VITAMIN D2) 73684 UNIT 02/04/2017 06/09/2018 [place] 09572 UNIT M Apixaban 5 MG 5 MG BID DIGOXIN 250 MCG 05/01/2017 06/09/2018 PO 250 MCG M FUROSEMIDE 40 mg 06/08/2018 PO 20 MG M QUETIAPINE FUMARATE 100 mg 06/08/2018 PO 200 MG M Triamcinolone Acetonide 1 MG/ML Topical Cr eam 06/14/2018 1 24 HR quetiapine 200 MG Exte nded Release Oral Tablet 08/20/2018 1 Q1D Furosemide 40 MG Oral Tablet [Lasix] 08/23/2018 1 Potassium Chloride 20 MEQ Ex tended Release Oral Tablet 08/23/2018 1 BID Furosemide 40 MG Oral Tablet [Lasix] 09/29/2018 1 BID atorvastatin 40 MG Oral Tablet 10/08/2018 10/08/2018 1 Q1D Lorazepam PO 02/202004/16/2019 PO 2 Lorazepam PO 02/202004/16/2019 PO 1 Olanzapine PO 04/16/2019 PO 5 Lorazepam IM 02/202004/16/2019 IM 2 Haloperidol Lactate IM 04/16/2019 04/16/2019 IM 5 Lorazepam PO 02/202004/17/2019 PO 2 Olanzapine PO 04/17/2019 PO 5 Haloperidol PO 0 04/17/2019 04/17/2019 PO 2 Diltiazem PO 03/202004/17/2019 PO 120 Apixaban PO 04/0604/17/2019 PO 5 Tamsulosin PO 04/17/2019 PO 0.4 Haloperidol Lactate IM 04/17/2019 04/17/2019 IM 2.5 Diltiazem PO 24 hr Cap 04/17/2019 04/17/2019 PO 120 Quetiapine PO 04/18/2019 PO 300 haloperidol Vial 04/0805/06/2019 <RXR.1.2>IM</RXR.1.2><RXR.1.2>IM</RXR.1.2> 5 mg q6hr (interval) polyethylene glycol 3350 Pac ket 05/05/2019 05/23/2019 <RXR.1.2>Oral</RXR.1.2><RXR.1.2>Oral</RXR.1.2> 17 gm Daily potassium chloride Tab 05/06/2019 05/23/2019 <RXR.1.2>Oral</RXR.1.2><RXR. 1.2>Oral</RXR.1.2> 20 mEq BID haloperidol Tab 04/0805/10/2019 <RXR.1.2>Oral</RXR.1.2><RXR.1.2>Oral</RXR.1.2> 5 mg BID guaiFENesin Tab-ER 05/06/2019 05/14/2019 <RXR.1.2>Oral</RXR.1.2><RXR.1.2>Oral</R XR.1.2> 600 mg BID famotidine Tab 05/0605/06/2019 <RXR.1.2>Oral</RXR.1.2><RXR.1.2>Oral</RXR.1.2> 20 mg BID apixaban Tab 020 05/23/2019 <RXR.1.2>Oral</RXR.1.2><RXR.1.2>Oral</RXR.1.2> 5 mg BID spironolactone Tab 05/06/2019 05/23/2019 <RXR.1.2>Oral</RXR.1.2><RXR.1.2>Oral</R XR.1.2> 12.5 mg Daily linaclotide Cap 04/0805/23/2019 <RXR.1.2>Oral</RXR.1.2><RXR.1.2>Oral</RXR.1.2> 145 mcg Daily furosemide Tab 05/0605/23/2019 <RXR.1.2>Oral</RXR.1.2><RXR.1.2>Oral</RXR.1.2> 40 mg Daily dilTIAZem Cap 201905/23/2019 <RXR.1.2>Oral</RXR.1.2><RXR.1.2>Oral</RXR.1.2> 240 mg Daily cyanocobalamin Vial 05/06/2019 05/23/2019 <RXR.1.2>IM</RXR.1.2><RXR.1.2>IM</RXR.1 .2> 1000 mcg qMonth (scheduled) tamsulosin Cap 05/0605/19/2019 <RXR.1.2>Oral</RXR.1.2><RXR.1.2>Oral</RXR.1.2> 0.4 mg HS atorvastatin Tab 05/23/2019 <RXR.1.2>Oral</RXR.1.2><RXR.1.2>Oral</RXR.1.2> 20 mg HS haloperidol Tab 07/201905/13/2019 <RXR.1.2>Oral</RXR.1.2><RXR.1.2>Oral</RXR.1.2> 2.5 mg BID haloperidol Tab 10/201905/15/2019 <RXR.1.2>Oral</RXR.1.2><RXR.1.2>Oral</RXR.1.2> 1 mg BID benztropine Tab 10/201905/23/2019 <RXR.1.2>Oral</RXR.1.2><RXR.1.2>Oral</RXR.1.2> 0.5 mg BID haloperidol Tab 12/201905/18/2019 <RXR.1.2>Oral</RXR.1.2><RXR.1.2>Oral</RXR.1.2> 0.5 mg BID risperiDONE Tab 05/0705/20/2019 <RXR.1.2>Oral</RXR.1.2><RXR.1.2>Oral</RXR.1.2> 0.25 mg TID&0800,1400,2100 tamsulosin Cap 05/1905/23/2019 <RXR.1.2>Oral</RXR.1.2><RXR.1.2>Oral</RXR.1.2> 0.4 mg BID risperiDONE Tab 05/0705/23/2019 <RXR.1.2>Oral</RXR.1.2><RXR.1.2>Oral</RXR.1.2> 0.5 mg BID Olanzapine ODT 0 05/29/2019 05/29/2019 PO 10 Olanzapine ODT 0 05/29/2019 05/29/2019 PO 10 polyethylene glycol 3350 Pac ket 05/30/2019 06/13/2019 <RXR.1.2>Oral</RXR.1.2><RXR.1.2>Oral</RXR.1.2> 17 gm Daily tamsulosin Cap 05/3006/13/2019 <RXR.1.2>Oral</RXR.1.2><RXR.1.2>Oral</RXR.1.2> 0.4 mg BID risperiDONE Tab 05/0806/04/2019 <RXR.1.2>Oral</RXR.1.2><RXR.1.2>Oral</RXR.1.2> 0.5 mg BID potassium chloride Tab 05/30/2019 06/13/2019 <RXR.1.2>Oral</RXR.1.2><RXR. 1.2>Oral</RXR.1.2> 20 mEq BID benztropine Tab 05/0806/01/2019 <RXR.1.2>Oral</RXR.1.2><RXR.1.2>Oral</RXR.1.2> 0.5 mg BID apixaban Tab 020 06/13/2019 <RXR.1.2>Oral</RXR.1.2><RXR.1.2>Oral</RXR.1.2> 5 mg BID spironolactone Tab 05/30/2019 06/13/2019 <RXR.1.2>Oral</RXR.1.2><RXR.1.2>Oral</R XR.1.2> 12.5 mg Daily linaclotide Cap 05/0806/03/2019 <RXR.1.2>Oral</RXR.1.2><RXR.1.2>Oral</RXR.1.2> 145 mcg Daily furosemide Tab 05/3006/13/2019 <RXR.1.2>Oral</RXR.1.2><RXR.1.2>Oral</RXR.1.2> 40 mg Daily dilTIAZem Cap 201906/13/2019 <RXR.1.2>Oral</RXR.1.2><RXR.1.2>Oral</RXR.1.2> 240 mg Daily cyanocobalamin Vial 05/30/2019 05/30/2019 <RXR.1.2>IM</RXR.1.2><RXR.1.2>IM</RXR.1 .2> 1000 mcg qMonth (scheduled) atorvastatin Tab 06/13/2019 <RXR.1.2>Oral</RXR.1.2><RXR.1.2>Oral</RXR.1.2> 20 mg HS benztropine Tab 05/0806/13/2019 <RXR.1.2>Oral</RXR.1.2><RXR.1.2>Oral</RXR.1.2> 1 mg BID Template Non-Formulary 06/02/2019 06/02/2019 <RXR.1.2>IM</RXR.1.2><RXR.1. 2>IM</RXR.1.2> 234 mg Once Template Non-Formulary 06/02/2019 06/02/2019 <RXR.1.2>IM</RXR.1.2><RXR.1. 2>IM</RXR.1.2> 234 mg Transitional Care Nurse risperiDONE Tab 05/0806/07/2019 <RXR.1.2>Oral</RXR.1.2><RXR.1.2>Oral</RXR.1.2> 0.25 mg BID clonazePAM Tab 06/0506/06/2019 <RXR.1.2>Oral</RXR.1.2><RXR.1.2>Oral</RXR.1.2> 0.25 mg Once Template Non-Formulary 06/09/2019 06/09/2019 <RXR.1.2>IM</RXR.1.2><RXR.1. 2>IM</RXR.1.2> 156 mg Once Template Non-Formulary 06/09/2019 06/09/2019 <RXR.1.2>IM</RXR.1.2><RXR.1. 2>IM</RXR.1.2> 156 mg Transitional Care Nurse Template Non-Formulary 07/09/2019 06/13/2019 <RXR.1.2>IM</RXR.1.2><RXR.1. 2>IM</RXR.1.2> 39 mg qMonth (schedule d) Problems Date Dx Coded Attending Type Code Diagnosis Diagnosed By 12/20/2012 Lamar SEGOVIA, Bed P Other 584.9 ACUTE RENAL FAILURE, UNSPECIFIED 12/20/2012 Laamr SEGOVIA, Bed P Other 585.3 CHRONIC KIDNEY DISEASE, STAGE III (MODERATE) 12/20/2012 Lamar SEGOVIA, Bed P Other 584.9 ACUTE RENAL FAILURE, UNSPECIFIED 12/20/2012 Lamar SEGOVIA, Bed P Other 585.3 CHRONIC KIDNEY DISEASE, STAGE III (MODERATE) 07/11/2013 Lamar SEGOVIA, Bed P Other 401.9 HYPERTENSION NOS 07/11/2013 Lamar SEGOVIA, Bed P Other 585.3 CHRONIC KIDNEY DISEASE, STAGE III (MODERATE) 01/16/2014 Lamar SEGOVIA, Bed P Other 585.3 CHRONIC KIDNEY DISEASE, STAGE III (MODERATE) 10/16/2014 Lamar SEGOVIA, Bed P Other 584.9 ACUTE RENAL FAILURE, UNSPECIFIED 06/11/2015 Lamar SEGOVIA, Bed P Other N18.3 CHRONIC KIDNEY DISEASE, STAGE 3 (MODERATE) 06/13/2015 Kwabena Oh Other C 61 MALIGNANT NEOPLASM OF PROSTATE 06/13/2015 Kwabena Oh Other Z51.0 ENCOUNTER FOR ANTINEOPLASTIC RADIATION THERAPY 07/03/2015 Kwabena Oh C 61 MALIGNANT NEOPLASM OF PROSTATE 07/03/2015 Kwabena Oh Other Z51.0 ENCOUNTER FOR ANTINEOPLASTIC RADIATION THERAPY 07/10/2015 Kwabena Oh C 61 MALIGNANT NEOPLASM OF PROSTATE 07/10/2015 Kwabena Oh Other Z51.0 ENCOUNTER FOR ANTINEOPLASTIC RADIATION THERAPY 12/12/2015 Lamar SEGOVIA, Bed P Other N18.3 CHRONIC KIDNEY DISEASE, STAGE 3 (MODERATE) 02/14/2016 Robina SEGOVIA, cD Other E66.01 MORBID (SEVERE) OBESITY DUE TO EXCESS CALORIES 02/14/2016 Dc Quarles MD Other E78.5 HYPERLIPIDEMIA UNSPECIFIED 02/14/2016 Dc Quarles MD Other I10 ESSENTIAL (PRIMARY) HYPERTENSION 02/14/2016 Dc Quarles MD Other I48.2 CHRONIC ATRIAL FIBRILLATION 08/05/2016 Humaira Sumner, Manuel Bobby Other C61 MALIGNANT NEOPLASM OF PROSTATE 08/05/2016 Humaira Sumner, Manuel Bobby Other N32.0 BLADDER-NECK OBSTRUCTION 08/05/2016 Humaira Sumner, Manuel R Other R33.8 OTHER RETENTION OF URINE 08/05/2016 Humaira Sumner, Manuel Bobby Other Z92.3 PERSONAL HISTORY OF IRRADIATION 10/15/2016 Humaira Sumner, Manuel Bobby Other C61 MALIGNANT NEOPLASM OF PROSTATE 10/15/2016 Humaira Sumner, Manuel Bobby Other R33.8 OTHER RETENTION OF URINE 12/09/2016 Lamar SEGOVIA, Bed P Other E66.09 OTHER OBESITY DUE TO EXCESS CALORIES 12/09/2016 Lamar SEGOVIA, Bed P Other I12.9 HYPERTENSIVE CHRONIC KIDNEY DISEASE W STG 1-4/UNSP CHR KDNY 12/09/2016 Lamar SEGOVIA, Bed P Other N18.2 CHRONIC KIDNEY DISEASE STAGE 2 (MILD) 12/09/2016 Lamar SEGOVIA, Bed P Other R60.0 LOCALIZED EDEMA 12/09/2016 Lamar SEGOVIA, Bed P Other N18.3 CHRONIC KIDNEY DISEASE, STAGE 3 (MODERATE) 03/19/2017 Kiran GUO, S E6601 Morbid (severe) obesity due to excess calories 03/19/2017 Kiran GUO, S I10 Essential (primary) hypertension 03/19/2017 Kiran GUO, P I482 Chronic atrial fibrillation 03/19/2017 Kiran GUO, S R0609 Other forms of dyspnea 03/19/2017 Kiran GUO, S Z7901 snf (current) use of anticoagulants 03/19/2017 Clarissa Guo MD Other E66.01 MORBID (SEVERE) OBESITY DUE TO EXCESS CALORIES 03/19/2017 Clarissa Guo MD Other I12.9 HYPERTENSIVE CHRONIC KIDNEY DISEASE W STG 1-4/UNSP CHR KDNY 03/19/2017 Clarissa Guo MD Other I48.2 CHRONIC ATRIAL FIBRILLATION 03/19/2017 Clarissa Guo MD Other N18.9 CHRONIC KIDNEY DISEASE UNSPECIFIED 04/30/2017 Kiran GUO, P I10 Essential (primary) hypertension 04/30/2017 Kiran GUO, S I482 Chronic atrial fibrillation 04/30/2017 Kiran GUO, S N189 Chronic kidney disease, unspecified 04/30/2017 Kiran GUO, S Z7901 snf (current) use of anticoagulants 04/30/2017 Clarissa Guo MD Other E66.01 MORBID (SEVERE) OBESITY DUE TO EXCESS CALORIES 04/30/2017 Clarissa Guo MD Other I48.0 PAROXYSMAL ATRIAL FIBRILLATION 07/30/2017 ABBY TOMAS I S I10 Essential (primary) hypertension 07/30/2017 ABBY TOMAS I P I482 Chronic atrial fibrillation 07/30/2017 ABBY TOMAS I S I872 Venous insufficiency (chronic) (peripheral) 07/30/2017 ABBY TOMAS I S Z7901 manager intermediate (current) use of anticoagulants 08/04/2017 Homar Kennedy DO F R47.81 Slurred speech 08/18/2017 F E66.09 Ot er obesity due to excess calories 08/18/2017 F I12.9 Hype rtensive chronic kidney disease with stage 1 through stage 4 chronic kidney disease, or unspecified chronic kidney disease 08/18/2017 F I50.9 Hear t failure, unspecified 08/18/2017 F N18.3 Tape Stringer jer kidney disease, 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) 08/18/2017 F N18.9 Tape Stringer jer kidney disease, unspecified 08/18/2017 F R60.0 Loca lized edema 08/18/2017 F Z68.43 Bod y mass index (BMI) 50-59.9 , adult 08/18/2017 F Z87.448 Pe rsonal history of other diseases of urinary system 08/18/2017 Other N18.9 N 18.9 - Chronic kidney disease, unspecified 09/10/2017 SHAHRZAD SEGOVIA, GARCIA Ramos R19.7 Diarrhea, unspecified 10/06/2017 JANWICHO, JESSICAED I S E876 Hypokalemia 10/06/2017 JANWICHO, MOHAMMED I S I10 Essential (primary) hypertension 10/06/2017 JANWICHO, MOHAMMED I P I482 Chronic atrial fibrillation 10/06/2017 JANIF, MOHAMMED I S I872 Venous insufficiency (chronic) (peripheral) 10/06/2017 JANIF, MOHAMMED I S Z7901 snf (current) use of anticoagulants 05/11/2018 GENOVEVA, MOHAMMED I S I10 Essential (primary) hypertension 05/11/2018 JANWICHO, MOHAMMED I P I482 Chronic atrial fibrillation 05/11/2018 JANWICHO, MOHAMMED I S I872 Venous insufficiency (chronic) (peripheral) 05/11/2018 GENOVEVA, MOHCLEMENTEED I S Z7901 manager intermediate (current) use of anticoagulants 05/11/2018 Abby Tomas MD Other I48.91 I48.91 - Unspecified atrial fibrillation 05/27/2018 F N390 Urina ry tract infection, site not specified 06/08/2018 Humiara Sumner, Manuel Bobby Other C61 C61 - Malignant neoplasm of prostate 06/14/2018 RUBENTHALEDiamante, HOMAR F L20.9 Atopic dermatitis, unspecified 06/14/2018 RUBENTHALER, HOMAR F W01.0 XXA Fall on same level from slipping, tripping and stumbling without subsequent striking against object, initial encounter 06/14/2018 RUBENTHALER, HOMAR F S80.0 1XA Contusion of right knee, initial encounter 06/14/2018 RUBENTHALER, HOMAR F S80.0 2XA Contusion of left knee, initial encounter 06/14/2018 RUBENTHALER, HOMAR F S09.9 3XA Unspecified injury of face, initial encounter 06/14/2018 RUBENTHALER, HOMAR F S01.2 1XA Laceration without foreign body of nose, initial encounter 06/14/2018 RUBENTHALER, HOMAR F S89.9 1XA Unspecified injury of right lower leg, initial encounter 06/14/2018 RUBENTHALER, HOMAR F S89.9 2XA Unspecified injury of left lower leg, initial encounter 08/02/2018 RUBENTHALER, HOMAR F 787.9 1 DIARRHEA 08/02/2018 RUBENTHALER, HOMAR F R19.7 Diarrhea, unspecified 08/02/2018 RUBENTHALER, HOMAR F R32 Unspecified urinary incontinence 08/02/2018 RUBENTHALER, HOMAR F R60.0 Localized edema 08/02/2018 RUBENTHALER, HOMAR F E87.6 Hypokalemia 08/02/2018 RUBENTHALER, HOMAR F E83.4 2 Hypomagnesemia 08/18/2018 Lamar SEGOVIA, Bed P Other I10 I10 - Essential (primary) hypertension 08/18/2018 Lamar SEGOVIA, Bed P Other M25.471 M25.471 - Effusion, right ankle 08/18/2018 Lamar SEGOVIA, Bed P Other M25.472 M25.472 - Effusion, left ankle 08/18/2018 Lamar SEGOVIA, Bed P Other N18.3 N18.3 - Chronic kidney disease, 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) 08/18/2018 Lamar SEGOVIA, Bed P Other N18.9 N18.9 - Chronic kidney disease, unspecified 08/18/2018 Lamar SEGOVIA, Bed P Other Z87.448 Z87.448 - Personal history of other diseases of urinar y system 08/20/2018 RUBENTHALER, HOMAR F F25.9 Schizoaffective disorder, unspecified 08/20/2018 RUBENTHALER, HOMAR F R44.0 Auditory hallucinations 08/20/2018 RUBENTHALER, HOMAR F J30.9 Allergic rhinitis, unspecified 08/20/2018 RUBENTHALER, HOMAR F F51.5 Nightmare disorder 08/20/2018 RUBENTHALER, HOMAR F K59.0 9 Other constipation 08/23/2018 RUBENTHALER, HOMAR F F25.9 Schizoaffective disorder, unspecified 08/23/2018 RUBENTHALER, HOMAR F F51.5 Nightmare disorder 08/23/2018 RUBENTHALER, HOMAR F J30.9 Allergic rhinitis, unspecified 08/23/2018 RUBENTHALER, HOMAR F K59.0 9 Other constipation 08/23/2018 RUBENTHALER, HOMAR F R44.0 Auditory hallucinations 08/23/2018 RUBENTHALER, HOMAR F R60.0 Localized edema 09/09/2018 Kalyani Rush AD 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, Recurrent, Severe With Psychotic Symptoms 09/09/2018 Arianna Arzola AD 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, Recurrent, Severe With Psychotic Symptoms 09/09/2018 Óscar Bermudez 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, Recurrent, Severe With Psychotic Symptoms 09/10/2018 Kalyani Rush 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, Recurrent, Severe With Psychotic Symptoms 09/14/2018 Arianna Arzola 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, Recurrent, Severe With Psychotic Symptoms 09/14/2018 Óscar Bermudez 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, Recurrent, Severe With Psychotic Symptoms 10/06/2018 RUBENTHALER SOL HOMAR F E8342 Hypomagnesemia 10/06/2018 RUBENTHALER RADHAT, HOMAR F I10 Essential (primary) hypertension 10/06/2018 RUBENTHALER SOL HOMAR F [id number] Other care home (current) drug therapy 10/06/2018 RUBENTHALER, HOMAR F R10.8 4 Generalized abdominal pain 11/18/2018 RUBENTHALER, HOMAR F W19.X XXA Unspecified fall, initial encounter 11/18/2018 RUBENTHALER, HOMAR F S59.9 02A Unspecified injury of left elbow, initial encounter 11/18/2018 RUBENTHALER, HOMAR F S89.9 2XA Unspecified injury of left lower leg, initial encounter 11/18/2018 RUBENTHALER, HOMAR F S50.8 12A Abrasion of left forearm, initial encounter 11/18/2018 RUBENTHALER, HOMAR F G24.0 1 Drug induced subacute dyskinesia 12/07/2018 MANUEL DARLING C61 Malignant neoplasm of prostate 12/07/2018 MANUEL DARLING R351 Nocturia 12/07/2018 MANUEL DARLING R3915 Urgency of urination 12/07/2018 ABBY TOMAS I S I10 Essential (primary) hypertension 12/07/2018 ABBY TOMAS I P I482 Chronic atrial fibrillation 12/07/2018 ABBY TOMAS I S I872 Venous insufficiency (chronic) (peripheral) 12/07/2018 ABBY TOMAS I S Z7901 snf (current) use of anticoagulants 01/06/2019 Eva Rader W [id number] feeling agitated 01/06/2019 EVA RADER R60.0 Localized edema 01/06/2019 EVA RADER I48.91 Unspecified atrial fibrillation 01/06/2019 EVA RADER F32.9 Major depressive disorder, single episode, unspecified 02/17/2019 Other I10 I10 - Essential (primary) hypertension 02/17/2019 Other M25.471 M25.471 - Effusion, right ankle 02/17/2019 Other M25.472 M25.472 - Effusion, left ankle 02/17/2019 Other N18.3 N 18.3 - Chronic kidney disease, 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) 02/17/2019 Other N18.9 N 18.9 - Chronic kidney disease, unspecified 02/17/2019 Other Z87.448 Z87.448 - Personal history of other diseases of urinary system 02/28/2019 Kalyani Rush Admitting F25.9 Schizoaffective disorder, unspecified 03/24/2019 Eva Rader Aurelio [id number] left against medical advice 04/27/2019 Tyree Lam [id number] 1 aggressive behavior 04/27/2019 Tyree Lam [id number] delusional perception 06/13/2019 Admitting F25.8 Other schizoaffective disorders Procedures Code Description [place] [id number] 08/04/2017 [id number] 08/04/2017 54677 FECE S CULTURE AEROBIC BACT SHAHRZAD SEGOVIA, GARCIA 09/09/2017 16766 STOO L CULTR AEROBIC BACT EA SHAHRZAD SEGOVIA, GARCIA 09/09/2017 27143 AGEN T NOS ASSAY W/OPTIC SHAHRZAD SEGOVIA, GARCIA 09/09/2017 70667 OFFI CE/OUTPATIENT VISIT, EST LEVEL 4 06/14/2018 18116 OFFI CE/OUTPATIENT VISIT, EST LEVEL 4 08/02/2018 67544 OFFI CE/OUTPATIENT VISIT, EST LEVEL 4 08/20/2018 30465 OFFI CE/OUTPATIENT VISIT, EST LEVEL 4 08/23/2018 39324 [facility] URINALYSIS NONAUTO W/O SCOPE 10/06/2018 88016 OFFI CE/OUTPATIENT VISIT, EST LEVEL 3 10/06/2018 36223 OFFI CE/OUTPATIENT VISIT, EST LEVEL 3 11/18/2018 37329 OFFI CE/OUTPATIENT VISIT, EST LEVEL 3 01/06/2019 Results Test Result Range Basic Metabolic Profile - 12/12/15 15:05 Sodium Level 138 mmol/L 135-146 Potassium Level 4.3 mmol/L 3.5-5.0 Chloride Level 98 mmol/L 98-110 Carbon Dioxide Level 23.2 mmol/L 19.0-30 .0 Anion Gap 17 7-17 Glucose 109 mg/dL 65-99 Blood Urea Nitrogen 18 mg/dL 7-25 Creatinine 1.21 mg/dL 0.70-1.25 eGFR Non-Black 74 >60 BUN/Creatinine Ratio 15 7-25 Calculated Creatine Clearance TNP ml/min >30 Osmolality, Calculated 288 mOSM/kg 280-3 00 Calcium Level 9.7 mg/dL 8.6-10.2 Uric Acid - 12/12/15 15:05 Uric Acid 7.5 mg/dL 4.0-8.0 Phosphorous Level - 12/12/15 15:05 Phosphorous Level 3.9 mg/dL 2.5-4.5 Magnesium Level - 12/12/15 15:05 Magnesium Level 2.1 mg/dL 1.5-2.5 Microalbumin U, Random - 12/09/16 13:00 Albumin, Urine (mg/dL) 0.3 mg/dL Creatinine, U(mg/dL) 58.65 mg/dL Microalb/Creat Ratio, Urine 5 mg/g <3 0 Microalbumin U, Random - 08/18/17 13:52 Albumin, Urine (mg/dL) 0.9 mg/dL NRG Creatinine, U(mg/dL) 186.66 mg/dL NRG Microalb/Creat Ratio, Urine 5 mg/g <3 0 TSH - 03/19/18 14:32 TSH 1.302 uIU/mL 0.358-3.740 FREE T4 - 03/19/18 14:32 FREE T4 0.9 ng/dL 0.8-1.5 COMPLETE BLOOD COUNT - 03/25/18 10:57 HEMATOCRIT 44.4 % 40.0-50.0 HEMOGLOBIN 14.7 g/dL 13.5-18.0 WBC 6.6 x10^3/uL 4.0-11.0 RBC 4.5 x10^6/uL 4.6-6.2 MCV 98.2 fL 82.0-96.0 MCH 32.5 pg 28.0-33.0 MCHC 33.1 g/dL 32.0-36.0 RDW-SD 49.3 fL 35.1-43.9 RDW-CV 14.1 % 11.5-14.5 PLT 246.0 x10^3/uL 150.0-400.0 MPV 10.0 fL 7.0-11.0 NE% 69.3 % 40.0-79.0 LY% 21.8 % 10.0-50.0 MO% 7.3 % 3.0-13.0 EO% 1.4 % 1.0-3.0 BA% 0.2 % 0.0-2.0 NE# 4.6 x10^3/uL 1.5-6.6 LY# 1.4 x10^3/uL 1.5-3.5 MO# 0.5 x10^3/uL 0.0-1.0 EO# 0.1 x10^3/uL 0.0-0.7 BA# 0.0 x10^3/uL 0.0-0.1 COMPREHENSIVE METABOLIC PANEL - 03/25/18 10:57 ALBUMIN 3.6 g/dL 3.4-5.0 ALKALINE PHOSPHATASE 125 U/L 46-116 ALT (SGPT) 39 U/L 12-78 AST (SGOT) 25 U/L 15-37 BUN 21 mg/dL 7-18 CALCIUM 9.7 mg/L 8.5-10.1 CHLORIDE 103 mmol/L 98-107 CO2 28.6 mmol/L 21.0-32.0 CREATININE 1.4 mg/dL 0.6-1.3 BILIRUBIN, DIRECT 0.2 mg/dL 0.0-0.2 GLUCOSE, RANDOM 98 mg/dL 74-106 POTASSIUM 3.7 mmol/L 3.5-5.1 SODIUM 142.0 mmol/L 136.0-145.0 BILIRUBIN, TOTAL 0.5 mg/mL 0.2-1.0 TOTAL PROTEIN 6.8 g/dL 6.4-8.2 BCRATIO 15.0 Ratio NRG AGAP 14.10 mmol/l 5.00-15.00 EGFRNAA 51 mL/min/1.73m2 NRG GLOB 3.2 g/dL 2.0-5.0 AGRATIO 1.1 Ratio 1.1-2.5 OSMO 286.0 mOsm/kg 280.0-300.0 MAGNESIUM - 05/27/18 08:09 MAGNESIUM 1.7 mg/dL 1.8-2.4 BASIC METABOLIC PANEL - 05/27/18 08:09 BUN 19 mg/dL 7-18 CALCIUM 9.3 mg/L 8.5-10.1 CHLORIDE 104 mmol/L 98-107 CO2 26.7 mmol/L 21.0-32.0 CREATININE 1.3 mg/dL 0.6-1.3 GLUCOSE, RANDOM 99 mg/dL 74-106 POTASSIUM 4.0 mmol/L 3.5-5.1 SODIUM 142.0 mmol/L 136.0-145.0 BCRATIO 15.2 Ratio NRG AGAP 15.30 mmol/l 5.00-15.00 EGFRNAA 58 mL/min/1.73m2 NRG VITAMIN D 25-HYDROXY - 05/27/18 08:09 VITAMIN D, 25-HYDROXY 32.5 ng/mL 30.0-59 .9 PROSTATIC SPECIFIC ANTIGEN, TOTAL - 05/08 04/24 08:12 PROSTATIC SPECIFIC ANTIGEN, TOTAL 1.18 ng/dL 0.00-4.00 TSH - 05/27/18 08:12 TSH 1.422 uIU/mL 0.358-3.740 URINALYSIS - 05/27/18 18:57 URINE PROTEIN Negative mg/dL NEGATIVE UCOL Yellow YELLOW UAPP Clear CLEAR UGLU Negative mg/dL NEGATIVE UKET Negative mg/dL NEGATIVE UBIL Negative NEGATIVE USG 1.025 1.005-1.025 UPH 5.5 5.0-7.0 UBLD Negative NEGATIVE UURO 0.2 mg/dL 0.2-1.0 UNIT Negative NEGATIVE ULEU Negative NEGATIVE URINALYSIS - 06/22/18 11:17 URINE PROTEIN Negative mg/dL NEGATIVE UCOL Yellow YELLOW UAPP Clear CLEAR UGLU Negative mg/dL NEGATIVE UKET Negative mg/dL NEGATIVE UBIL Negative NEGATIVE USG 1.025 1.005-1.025 UPH 7.0 5.0-7.0 UBLD Negative NEGATIVE UURO 1.0 mg/dL 0.2-1.0 UNIT Negative NEGATIVE ULEU Negative NEGATIVE PROSTATIC SPECIFIC ANTIGEN, TOTAL - 07/05 11/22 09:00 PROSTATIC SPECIFIC ANTIGEN, TOTAL 1.29 ng/dL 0.00-4.00 BASIC METABOLIC PANEL - 08/02/18 15:20 BUN 16 mg/dL 7-18 CALCIUM 9.2 mg/L 8.5-10.1 CHLORIDE 107 mmol/L 98-107 CO2 25.9 mmol/L 21.0-32.0 CREATININE 1.2 mg/dL 0.6-1.3 GLUCOSE, RANDOM 99 mg/dL 74-106 POTASSIUM 4.2 mmol/L 3.5-5.1 SODIUM 143.0 mmol/L 136.0-145.0 BCRATIO 13.6 Ratio NRG AGAP 14.30 mmol/l 5.00-15.00 EGFRNAA >60 mL/min/1.73m2 NRG MAGNESIUM - 08/02/18 15:20 MAGNESIUM 1.9 mg/dL 1.8-2.4 URINALYSIS - 08/02/18 15:20 URINE PROTEIN Negative mg/dL NEGATIVE UCOL Yellow YELLOW UAPP Clear CLEAR UGLU Negative mg/dL NEGATIVE UKET Negative mg/dL NEGATIVE UBIL Negative NEGATIVE USG >=1.030 1.005-1.025 UPH 5.5 5.0-7.0 UBLD Negative NEGATIVE UURO 1.0 mg/dL 0.2-1.0 UNIT Negative NEGATIVE ULEU Negative NEGATIVE BMP, BLOOD - 08/02/18 15:20 GLU 99 mg/dL 74-106 BUN 16 mg/dL 7-18 CREA 1.2 mg/dL 0.6-1.3 BCRATIO 13.6 Ratio NRG CA 9.2 mg/L 8.5-10.1 NA 143.0 mmol/L 136.0-145.0 K 4.2 mmol/L 3.5-5.1 CL 107 mmol/L 98-107 CO2 25.9 mmol/L 21.0-32.0 AGAP 14.30 mmol/l 5.00-15.00 EGFRNAA >60 mL/min/1.73m2 NRG MAGNESIUM, SERUM OR PLASMA - 08/02/18 15 :20 MG 1.9 mg/dL 1.8-2.4 URINALYSIS, COMPLETE - 08/02/18 15:20 UCOL Yellow Yellow UAPP Clear Clear UGLU Negative mg/dL Negative UKET Negative mg/dL Negative UBIL Negative Negative USG >=1.030 1.005-1.025 UPH 5.5 5.0-7.0 UBLD Negative Negative UPRO Negative mg/dL Negative UURO 1.0 mg/dL 0.2-1.0 UNIT Negative Negative ULEU Negative Negative CULTURE, URINE - 08/02/18 15:20 USOUR Void NRG ANTIBIO No NRG COL NRG MP [employer]. MANOLO, 08/02/2018, 15: 59 NRG STOOL CULTURE - 08/04/18 09:14 STOOL CULTURE Completed NRG CULTURE, STOOL - 08/04/18 09:14 CXSTOOL Completed NRG C Stool - 08/04/18 10:29 Final No Salmonella, Shigella or Yersinia at 4 8 hours. COMPLETE BLOOD COUNT - 09/15/18 14:24 HEMATOCRIT 41.5 % 40.0-50.0 HEMOGLOBIN 13.8 g/dL 13.5-18.0 WBC 7.7 x10^3/uL 4.0-11.0 RBC 4.2 x10^6/uL 4.6-6.2 MCV 99.5 fL 82.0-96.0 MCH 33.1 pg 28.0-33.0 MCHC 33.3 g/dL 32.0-36.0 RDW-SD 48.6 fL 35.1-43.9 RDW-CV 13.6 % 11.5-14.5 PLT 274.0 x10^3/uL 150.0-400.0 MPV 9.4 fL 7.0-11.0 NE% 70.0 % 40.0-79.0 LY% 21.9 % 10.0-50.0 MO% 6.5 % 3.0-13.0 EO% 1.3 % 1.0-3.0 BA% 0.3 % 0.0-2.0 NE# 5.4 x10^3/uL 1.5-6.6 LY# 1.7 x10^3/uL 1.5-3.5 MO# 0.5 x10^3/uL 0.0-1.0 EO# 0.1 x10^3/uL 0.0-0.7 BA# 0.0 x10^3/uL 0.0-0.1 COMPREHENSIVE METABOLIC PANEL - 09/15/18 14:24 ALBUMIN 3.9 g/dL 3.4-5.0 ALKALINE PHOSPHATASE 134 U/L 46-116 ALT (SGPT) 20 U/L 12-78 AST (SGOT) 15 U/L 15-37 BUN 16 mg/dL 7-18 CALCIUM 9.5 mg/L 8.5-10.1 CHLORIDE 102 mmol/L 98-107 CO2 25.9 mmol/L 21.0-32.0 CREATININE 1.3 mg/dL 0.6-1.3 BILIRUBIN, DIRECT 0.1 mg/dL 0.0-0.2 GLUCOSE, RANDOM 80 mg/dL 74-106 POTASSIUM 4.0 mmol/L 3.5-5.1 SODIUM 139.0 mmol/L 136.0-145.0 BILIRUBIN, TOTAL 0.4 mg/mL 0.2-1.0 TOTAL PROTEIN 7.5 g/dL 6.4-8.2 BCRATIO 12.1 Ratio NRG AGAP 15.10 mmol/l 5.00-15.00 EGFRNAA 54 mL/min/1.73m2 NRG GLOB 3.6 g/dL 2.0-5.0 AGRATIO 1.1 Ratio 1.1-2.5 OSMO 278.0 mOsm/kg 280.0-300.0 MAGNESIUM - 09/15/18 14:24 MAGNESIUM 1.9 mg/dL 1.8-2.4 URINALYSIS, DIPSTICK - 10/26/18 13:05 PROSTATIC SPECIFIC ANTIGEN, TOTAL - 06/22 11:40 PROSTATIC SPECIFIC ANTIGEN, TOTAL 1.19 ng/dL 0.00-4.00 URINALYSIS - 12/07/18 11:47 URINE PROTEIN Negative mg/dL NEGATIVE UCOL Yellow YELLOW UAPP Clear CLEAR UGLU Negative mg/dL NEGATIVE UKET Negative mg/dL NEGATIVE UBIL Negative NEGATIVE USG 1.010 1.005-1.025 UPH 6.0 5.0-7.0 UBLD Negative NEGATIVE UURO 1.0 mg/dL 0.2-1.0 UNIT Negative NEGATIVE ULEU Negative NEGATIVE COMPLETE BLOOD COUNT - 02/12/19 10:23 HEMATOCRIT 48.0 % 40.0-50.0 HEMOGLOBIN 16.1 g/dL 13.5-18.0 WBC 6.1 x10^3/uL 4.0-11.0 RBC 5.1 x10^6/uL 4.6-6.2 MCV 93.9 fL 82.0-96.0 MCH 31.5 pg 28.0-33.0 MCHC 33.5 g/dL 32.0-36.0 RDW-SD 49.9 fL 35.1-43.9 RDW-CV 14.9 % 11.5-14.5 PLT 278.0 x10^3/uL 150.0-400.0 MPV 9.5 fL 7.0-11.0 NE% 63.7 % 40.0-79.0 LY% 27.1 % 10.0-50.0 MO% 6.9 % 3.0-13.0 EO% 2.0 % 1.0-3.0 BA% 0.3 % 0.0-2.0 NE# 3.9 x10^3/uL 1.5-6.6 LY# 1.6 x10^3/uL 1.5-3.5 MO# 0.4 x10^3/uL 0.0-1.0 EO# 0.1 x10^3/uL 0.0-0.7 BA# 0.0 x10^3/uL 0.0-0.1 COMPREHENSIVE METABOLIC PANEL - 02/12/19 10:23 ALBUMIN 3.9 g/dL 3.4-5.0 ALKALINE PHOSPHATASE 142 U/L 46-116 ALT (SGPT) 12 U/L 12-78 AST (SGOT) 13 U/L 15-37 BUN 14 mg/dL 7-18 CALCIUM 9.3 mg/L 8.5-10.1 CHLORIDE 104 mmol/L 98-107 CO2 20.9 mmol/L 21.0-32.0 CREATININE 1.1 mg/dL 0.6-1.3 BILIRUBIN, DIRECT 0.2 mg/dL 0.0-0.2 GLUCOSE, RANDOM 102 mg/dL 74-106 POTASSIUM 4.1 mmol/L 3.5-5.1 SODIUM 139.0 mmol/L 136.0-145.0 BILIRUBIN, TOTAL 0.8 mg/mL 0.2-1.0 TOTAL PROTEIN 8.1 g/dL 6.4-8.2 BCRATIO 12.5 Ratio NRG AGAP 18.20 mmol/l 5.00-15.00 EGFRNAA >60 mL/min/1.73m2 NRG GLOB 4.2 g/dL 2.0-5.0 AGRATIO 0.9 Ratio 1.1-2.5 OSMO 278.0 mOsm/kg 280.0-300.0 MAGNESIUM - 02/12/19 10:23 MAGNESIUM 1.7 mg/dL 1.8-2.4 URINE DRUG SCREEN - 02/12/19 10:23 UTCAS Presumptive Positive NEGATIVE UBARBS Negative NEGATIVE UMETH Negative NEGATIVE UBENZO Negative NEGATIVE UTHCS Negative NEGATIVE UOPIS Negative NEGATIVE UAMPS Negative NEGATIVE UCOCS Negative NEGATIVE UPCPS Negative NEGATIVE UPROPO Negative NEGATIVE UMETHS Negative NEGATIVE UOXY Negative NEGATIVE ACETAMINOPHEN - 02/12/19 10:23 ACETAMINOPHEN 0.0 ug/mL 0.0-30.0 ALCOHOL ETHANOL - 02/12/19 10:23 ALCOHOL ETHANOL <0.003 g/dL NRG TSH - 02/12/19 10:23 TSH 1.537 uIU/mL 0.358-3.740 FREE T4 - 02/12/19 10:23 FREE T4 0.8 ng/dL 0.8-1.5 SALICYLATE - 02/12/19 10:23 SALICYLATE 1.10 mg/dL 0.20-20.00 CBC W/ AUTO DIFF - 02/12/19 10:23 WBC 6.1 x10^3/uL 4.0-11.0 RBC 5.1 x10^6/uL 4.6-6.2 HGB 16.1 g/dL 13.5-18.0 HCT 48.0 % 40.0-50.0 MCV 93.9 fL 82.0-96.0 MCH 31.5 pg 28.0-33.0 MCHC 33.5 g/dL 32.0-36.0 RDW-SD 49.9 fL 35.1-43.9 RDW-CV 14.9 % 11.5-14.5 PLT 278.0 x10^3/uL 150.0-400.0 MPV 9.5 fL 7.0-11.0 NE% 63.7 % 40.0-79.0 LY% 27.1 % 10.0-50.0 MO% 6.9 % 3.0-13.0 EO% 2.0 % 1.0-3.0 BA% 0.3 % 0.0-2.0 NE# 3.9 x10^3/uL 1.5-6.6 LY# 1.6 x10^3/uL 1.5-3.5 MO# 0.4 x10^3/uL 0.0-1.0 EO# 0.1 x10^3/uL 0.0-0.7 BA# 0.0 x10^3/uL 0.0-0.1 CMP, SERUM OR PLASMA - 02/12/19 10:23 GLU 102 mg/dL 74-106 BUN 14 mg/dL 7-18 CREA 1.1 mg/dL 0.6-1.3 BCRATIO 12.5 Ratio NRG CA 9.3 mg/L 8.5-10.1 NA 139.0 mmol/L 136.0-145.0 K 4.1 mmol/L 3.5-5.1 CL 104 mmol/L 98-107 CO2 20.9 mmol/L 21.0-32.0 AGAP 18.20 mmol/l 5.00-15.00 EGFRNAA >60 mL/min/1.73m2 NRG ALB 3.9 g/dL 3.4-5.0 TP 8.1 g/dL 6.4-8.2 GLOB 4.2 g/dL 2.0-5.0 AGRATIO 0.9 Ratio 1.1-2.5 TBIL 0.8 mg/mL 0.2-1.0 ALP 142 U/L 46-116 ALT 12 U/L 12-78 AST 13 U/L 15-37 OSMO 278.0 mOsm/kg 280.0-300.0 DBIL 0.2 mg/dL 0.0-0.2 URINALYSIS - 02/12/19 10:56 URINE PROTEIN Negative mg/dL NEGATIVE UCOL Yellow YELLOW UAPP Clear CLEAR UGLU Negative mg/dL NEGATIVE UKET Negative mg/dL NEGATIVE UBIL Negative NEGATIVE USG 1.015 1.005-1.025 UPH 7.0 5.0-7.0 UBLD Negative NEGATIVE UURO 2.0 mg/dL 0.2-1.0 UNIT Negative NEGATIVE ULEU Negative NEGATIVE Comprehensive Metabolic Panel Standard - 02/17/19 16:20 Sodium SerPl-sCnc 137 mmol/L 136-145 Potassium SerPl-sCnc 3.40 mmol/L 3.50-5. 10 Chloride SerPl-sCnc 108 mmol/L 98-107 CO2 SerPl-sCnc 19.0 mmol/L 23.0-31.0 BUN SerPl-mCnc 17.0 mg/dL 5.7-25.7 Creat SerPl-mCnc 1.22 mg/dL 0.72-1.25 Glucose SerPl-mCnc 119 mg/dL 70-110 Calcium SerPl-mCnc 9.6 mg/dL 9.0-10.6 Prot SerPl-mCnc 7.3 g/dL 6.0-8.3 Albumin SerPl-mCnc 4.2 g/dL 3.4-4.8 AST SerPl-cCnc 15 unit/L 5-34 ALT SerPl-cCnc 11 unit/L 0-55 Bilirub SerPl-mCnc 0.5 mg/dL 0.2-1.2 Anion Gap SerPl-sCnc 13.4 10.0-20.0 BUN/Creat SerPl-mRto 13.93 9.00-30.0 0 Globulin Ser Calc-mCnc 3.1 g/dL 2.0-3.5 Breakpoint NRG A/G Ratio 1.4 0.8-2.0 Alk Phos 113 unit/L 40-150 OSMOLALITY:OSMOL:PT:SER/PLAS:QN: 277 mOsm/L 266-301 GLOMERULAR FILTRATION RATE/1.73 SQ M.PRE DICTED.NON BLACK:ARVRAT:PT:SER/PLAS:QN:CREATININE-BASED FORMULA (MDRD) 59.6 mL/min/1.73m2 >=60.0 Auto Diff Standard - 02/17/19 16:20 Neutrophils NFr Bld Auto 77 % 55-75 Lymphocytes NFr Bld Auto 15 % 20-40 Monocytes NFr Bld Auto 7 % 0-7 Eosinophil NFr Bld Auto 1 % 0-7 Basophils NFr Bld Auto 0.40 % 0.00-1. 07 Neutrophils # Bld Auto 7.3 x10 2.5-7.8 Lymphocytes # Bld Auto 1.5 x10 0.9-4.7 Monocytes # Bld Auto 0.6 x10 0.0-0.7 Eosinophil # Bld Auto 0.1 x10 0.0-0.3 Basophils # Bld Auto 0.0 x10 0.0-0.1 Breakpoint NRG CBC w/Diff Standard - 02/17/19 16:20 WBC # Bld Auto 9.5 x10 4.5-10.5 RBC # Bld Auto 4.49 x10 4.60-6.20 Hgb Bld-mCnc 14.3 gm/dL 13.0-19.0 Hct VFr Bld Auto 42.1 % 39.0-55.0 MCV RBC Auto 93.8 fL 80.0-97.0 MCH RBC Qn Auto 31.8 pg 27.0-31.0 MCHC RBC Auto-mCnc 34.0 gm/dL 31.0-36.0 RDW RBC Auto-Rto 15.0 % 10.0-20.0 Platelet # Bld Auto 271 x10 150-450 MPV Bld Auto 9.3 fL 8.0-11.0 Breakpoint NRG ERYTHROCYTE DISTRIBUTION WIDTH:ENTVOL:PT:RBC:QN:AUTOMA YOMI COUNT 50.1 fL 37.0-54.0 PT - 02/17/19 16:20 COAGULATION TISSUE FACTOR INDUCED:TIME:PT:BLD:QN:COAG 11.4 second(s) 9.1-11.9 COAGULATION TISSUE FACTOR INDUCED.INR:RELTIME:PT:BLD:Q N:COAG 1.2 1.0-2.0 Hgb A1c - 02/17/19 16:20 Hgb A1c 5.3 % 0.0-6.0 Lipid Panel 8 - 02/17/19 16:20 Trigl SerPl-mCnc 57.0 mg/dL 35.0-150.0 HDLc SerPl-mCnc 47 mg/dL 29-71 Cholesterol 112 mg/dL 0-200 LIPOPROTEIN.BETA:MCNC:PT:SER/PLAS:QN:CALCULATED 54 mg/dL 1- 129 TSH - 02/17/19 16:20 TSH SerPl DL<=0.05 mIU/L-aCnc 1.01 uIU/mL 0.35-4.94 Vit B12 & Folate - 02/17/19 16:20 Vit B12 Ser-mCnc 646 pg/mL 200-1100 Folate SerPl-mCnc 16.3 ng/mL 7.0-31.4 UA with Culture, If Indicated Standard - 02/18/19 05:35 Color Ur Auto Yellow Yellow Appearance Ur Clear Clear Glucose Ur Ql Strip.auto Negative NRG Bilirub Ur Ql Strip Negative NRG Ketones Ur Ql Strip Negative Negative Sp Gr Ur Strip.auto 1.015 1.005-1.03 0 RBC Ur Ql Auto Negative Negative pH Ur Strip.auto 5.0 NRG Prot Ur Strip-mCnc Negative Negative Urobilinogen Ur Strip.auto-mCnc 0.2 0.2 Nitrite Ur Ql Strip Negative Negative Leukocyte esterase Ur Ql Strip Negative Negative Micro? Yes NRG Breakpoint NRG Urinalysis Microscopic (34) - 02/18/19 0 5:35 WBC #/area UrnS HPF Not Present 0-3 Culture? No NRG URINALYSIS MICROSCOPIC PANEL:-:PT:URINE SED:-: 0-2 /HPF 0-2 URATE CRYSTALS.AMORPHOUS:PRTHR:PT:URINE SED:ORD:MICROS COPY.LIGHT Few NRG EKG (34) - 02/18/19 09:37 EKG (Lab) See Scanned Report NRG BMP Standard - 02/18/19 09:37 Sodium SerPl-sCnc 140 mmol/L 136-145 Potassium SerPl-sCnc 4.00 mmol/L 3.50-5. 10 Chloride SerPl-sCnc 107 mmol/L 98-107 CO2 SerPl-sCnc 21.0 mmol/L 23.0-31.0 BUN SerPl-mCnc 16.0 mg/dL 5.7-25.7 Creat SerPl-mCnc 1.07 mg/dL 0.72-1.25 Glucose SerPl-mCnc 65 mg/dL 70-110 Calcium SerPl-mCnc 10.0 mg/dL 9.0-10.6 Anion Gap SerPl-sCnc 16.0 10.0-20.0 BUN/Creat SerPl-mRto 14.95 9.00-30.0 0 Breakpoint NRG OSMOLALITY:OSMOL:PT:SER/PLAS:QN: 279 mOsm/L 266-301 GLOMERULAR FILTRATION RATE/1.73 SQ M.PRE DICTED.NON BLACK:ARVRAT:PT:SER/PLAS:QN:CREATININE-BASED FORMULA (MDRD) 69.4 mL/min/1.73m2 >=60.0 [facility] Standard - 02/21/19 07:40 Sodium SerPl-sCnc 140 mmol/L 136-145 Potassium SerPl-sCnc 3.90 mmol/L 3.50-5. 10 Chloride SerPl-sCnc 103 mmol/L 98-107 CO2 SerPl-sCnc 27.0 mmol/L 23.0-31.0 BUN SerPl-mCnc 20.0 mg/dL 5.7-25.7 Creat SerPl-mCnc 1.15 mg/dL 0.72-1.25 Glucose SerPl-mCnc 86 mg/dL 70-110 Calcium SerPl-mCnc 9.9 mg/dL 9.0-10.6 Anion Gap SerPl-sCnc 13.9 10.0-20.0 BUN/Creat SerPl-mRto 17.39 9.00-30.0 0 Breakpoint NRG OSMOLALITY:OSMOL:PT:SER/PLAS:QN: 281 mOsm/L 266-301 GLOMERULAR FILTRATION RATE/1.73 SQ M.PRE DICTED.NON BLACK:ARVRAT:PT:SER/PLAS:QN:CREATININE-BASED FORMULA (MDRD) 63.8 mL/min/1.73m2 >=60.0 COMPLETE BLOOD COUNT - 03/24/19 15:07 HEMATOCRIT 45.3 % 40.0-50.0 HEMOGLOBIN 15.1 g/dL 13.5-18.0 WBC 6.9 x10^3/uL 4.0-11.0 RBC 4.7 x10^6/uL 4.6-6.2 MCV 97.2 fL 82.0-96.0 MCH 32.4 pg 28.0-33.0 MCHC 33.3 g/dL 32.0-36.0 RDW-SD 52.4 fL 35.1-43.9 RDW-CV 15.0 % 11.5-14.5 PLT 260.0 x10^3/uL 150.0-400.0 MPV 9.6 fL 7.0-11.0 NE% 65.8 % 40.0-79.0 LY% 25.1 % 10.0-50.0 MO% 7.2 % 3.0-13.0 EO% 1.6 % 1.0-3.0 BA% 0.3 % 0.0-2.0 NE# 4.6 x10^3/uL 1.5-6.6 LY# 1.7 x10^3/uL 1.5-3.5 MO# 0.5 x10^3/uL 0.0-1.0 EO# 0.1 x10^3/uL 0.0-0.7 BA# 0.0 x10^3/uL 0.0-0.1 COMPREHENSIVE METABOLIC PANEL - 03/24/19 15:07 ALBUMIN 3.8 g/dL 3.4-5.0 ALKALINE PHOSPHATASE 125 U/L 46-116 ALT (SGPT) 21 U/L 12-78 AST (SGOT) 14 U/L 15-37 BUN 11 mg/dL 7-18 CALCIUM 9.3 mg/L 8.5-10.1 CHLORIDE 104 mmol/L 98-107 CO2 27.8 mmol/L 21.0-32.0 CREATININE 1.1 mg/dL 0.6-1.3 BILIRUBIN, DIRECT 0.2 mg/dL 0.0-0.2 GLUCOSE, RANDOM 94 mg/dL 74-106 POTASSIUM 4.1 mmol/L 3.5-5.1 SODIUM 140.0 mmol/L 136.0-145.0 BILIRUBIN, TOTAL 0.5 mg/mL 0.2-1.0 TOTAL PROTEIN 6.8 g/dL 6.4-8.2 BCRATIO 10.3 Ratio NRG AGAP 12.30 mmol/l 5.00-15.00 EGFRNAA >60 mL/min/1.73m2 NRG GLOB 3.0 g/dL 2.0-5.0 AGRATIO 1.3 Ratio 1.1-2.5 OSMO 279.0 mOsm/kg 280.0-300.0 CBC W/ AUTO DIFF - 03/24/19 15:07 WBC 6.9 x10^3/uL 4.0-11.0 RBC 4.7 x10^6/uL 4.6-6.2 HGB 15.1 g/dL 13.5-18.0 HCT 45.3 % 40.0-50.0 MCV 97.2 fL 82.0-96.0 MCH 32.4 pg 28.0-33.0 MCHC 33.3 g/dL 32.0-36.0 RDW-SD 52.4 fL 35.1-43.9 RDW-CV 15.0 % 11.5-14.5 PLT 260.0 x10^3/uL 150.0-400.0 MPV 9.6 fL 7.0-11.0 NE% 65.8 % 40.0-79.0 LY% 25.1 % 10.0-50.0 MO% 7.2 % 3.0-13.0 EO% 1.6 % 1.0-3.0 BA% 0.3 % 0.0-2.0 NE# 4.6 x10^3/uL 1.5-6.6 LY# 1.7 x10^3/uL 1.5-3.5 MO# 0.5 x10^3/uL 0.0-1.0 EO# 0.1 x10^3/uL 0.0-0.7 BA# 0.0 x10^3/uL 0.0-0.1 CMP, SERUM OR PLASMA - 03/24/19 15:07 GLU 94 mg/dL 74-106 BUN 11 mg/dL 7-18 CREA 1.1 mg/dL 0.6-1.3 BCRATIO 10.3 Ratio NRG CA 9.3 mg/L 8.5-10.1 NA 140.0 mmol/L 136.0-145.0 K 4.1 mmol/L 3.5-5.1 CL 104 mmol/L 98-107 CO2 27.8 mmol/L 21.0-32.0 AGAP 12.30 mmol/l 5.00-15.00 EGFRNAA >60 mL/min/1.73m2 NRG ALB 3.8 g/dL 3.4-5.0 TP 6.8 g/dL 6.4-8.2 GLOB 3.0 g/dL 2.0-5.0 AGRATIO 1.3 Ratio 1.1-2.5 TBIL 0.5 mg/mL 0.2-1.0 ALP 125 U/L 46-116 ALT 21 U/L 12-78 AST 14 U/L 15-37 OSMO 279.0 mOsm/kg 280.0-300.0 DBIL 0.2 mg/dL 0.0-0.2 URINALYSIS - 04/16/19 12:28 URINE PROTEIN Negative mg/dL NEGATIVE UCOL Yellow YELLOW UAPP Clear CLEAR UGLU Negative mg/dL NEGATIVE UKET 15 mg/dL mg/dL NEGATIVE UBIL Small NEGATIVE USG 1.015 1.005-1.025 UPH 6.5 5.0-7.0 UBLD Negative NEGATIVE UURO 2.0 mg/dL 0.2-1.0 UNIT Negative NEGATIVE ULEU Negative NEGATIVE URINALYSIS, COMPLETE - 04/16/19 12:28 UCOL Yellow Yellow UAPP Clear Clear UGLU Negative mg/dL Negative UKET 15 mg/dL mg/dL Negative UBIL Small Negative USG 1.015 1.005-1.025 UPH 6.5 5.0-7.0 UBLD Negative Negative UPRO Negative mg/dL Negative UURO 2.0 mg/dL 0.2-1.0 UNIT Negative Negative ULEU Negative Negative COMPLETE BLOOD COUNT - 04/16/19 12:40 HEMATOCRIT 39.7 % 40.0-50.0 HEMOGLOBIN 13.7 g/dL 13.5-18.0 WBC 10.2 x10^3/uL 4.0-11.0 RBC 4.3 x10^6/uL 4.6-6.2 MCV 93.2 fL 82.0-96.0 MCH 32.2 pg 28.0-33.0 MCHC 34.5 g/dL 32.0-36.0 RDW-SD 46.0 fL 35.1-43.9 RDW-CV 14.0 % 11.5-14.5 PLT 423.0 x10^3/uL 150.0-400.0 MPV 8.5 fL 7.0-11.0 NE% 74.7 % 40.0-79.0 LY% 17.2 % 10.0-50.0 MO% 5.8 % 3.0-13.0 EO% 2.1 % 1.0-3.0 BA% 0.2 % 0.0-2.0 NE# 7.6 x10^3/uL 1.5-6.6 LY# 1.8 x10^3/uL 1.5-3.5 MO# 0.6 x10^3/uL 0.0-1.0 EO# 0.2 x10^3/uL 0.0-0.7 BA# 0.0 x10^3/uL 0.0-0.1 TSH - 04/16/19 12:40 TSH 1.478 uIU/mL 0.358-3.740 ALCOHOL ETHANOL - 04/16/19 12:40 ALCOHOL ETHANOL <0.003 g/dL NRG COMPREHENSIVE METABOLIC PANEL - 04/16/19 12:40 ALBUMIN 3.0 g/dL 3.4-5.0 ALKALINE PHOSPHATASE 124 U/L 46-116 ALT (SGPT) 11 U/L 12-78 AST (SGOT) 12 U/L 15-37 BUN 11 mg/dL 7-18 CALCIUM 9.0 mg/L 8.5-10.1 CHLORIDE 104 mmol/L 98-107 CO2 20.2 mmol/L 21.0-32.0 CREATININE 1.3 mg/dL 0.6-1.3 BILIRUBIN, DIRECT 0.2 mg/dL 0.0-0.2 GLUCOSE, RANDOM 72 mg/dL 74-106 POTASSIUM 4.1 mmol/L 3.5-5.1 SODIUM 138.0 mmol/L 136.0-145.0 BILIRUBIN, TOTAL 0.6 mg/mL 0.2-1.0 TOTAL PROTEIN 7.0 g/dL 6.4-8.2 BCRATIO 8.5 Ratio NRG AGAP 17.90 mmol/l 5.00-15.00 EGFRNAA 56 mL/min/1.73m2 NRG GLOB 4.0 g/dL 2.0-5.0 AGRATIO 0.8 Ratio 1.1-2.5 OSMO 274.0 mOsm/kg 280.0-300.0 SALICYLATE - 04/16/19 12:40 SALICYLATE 0.50 mg/dL 0.20-20.00 ACETAMINOPHEN - 04/16/19 12:40 ACETAMINOPHEN 0.0 ug/mL 0.0-30.0 URINE DRUG SCREEN - 04/16/19 12:40 UTCAS Presumptive Positive NEGATIVE UBARBS Negative NEGATIVE UMETH Negative NEGATIVE UBENZO Negative NEGATIVE UTHCS Negative NEGATIVE UOPIS Negative NEGATIVE UAMPS Negative NEGATIVE UCOCS Negative NEGATIVE UPCPS Negative NEGATIVE UPROPO Negative NEGATIVE UMETHS Negative NEGATIVE UOXY Negative NEGATIVE BASIC METABOLIC PANEL - 04/27/19 15:01 BUN 9 mg/dL 7-18 CALCIUM 8.6 mg/L 8.5-10.1 CHLORIDE 100 mmol/L 98-107 CO2 21.1 mmol/L 21.0-32.0 CREATININE 1.0 mg/dL 0.6-1.3 GLUCOSE, RANDOM 74 mg/dL 74-106 POTASSIUM 4.1 mmol/L 3.5-5.1 SODIUM 134.0 mmol/L 136.0-145.0 BCRATIO 8.9 Ratio NRG AGAP 17.00 mmol/l 5.00-15.00 EGFRNAA >60 mL/min/1.73m2 NRG BMP, BLOOD - 04/27/19 15:01 GLU 74 mg/dL 74-106 BUN 9 mg/dL 7-18 CREA 1.0 mg/dL 0.6-1.3 BCRATIO 8.9 Ratio NRG CA 8.6 mg/L 8.5-10.1 NA 134.0 mmol/L 136.0-145.0 K 4.1 mmol/L 3.5-5.1 CL 100 mmol/L 98-107 CO2 21.1 mmol/L 21.0-32.0 AGAP 17.00 mmol/l 5.00-15.00 EGFRNAA >60 mL/min/1.73m2 NRG COMPLETE BLOOD COUNT - 05/04/19 15:42 HEMATOCRIT 42.9 % 40.0-50.0 HEMOGLOBIN 14.2 g/dL 13.5-18.0 WBC 6.9 x10^3/uL 4.0-11.0 RBC 4.5 x10^6/uL 4.6-6.2 MCV 94.9 fL 82.0-96.0 MCH 31.4 pg 28.0-33.0 MCHC 33.1 g/dL 32.0-36.0 RDW-SD 48.9 fL 35.1-43.9 RDW-CV 14.5 % 11.5-14.5 PLT 277.0 x10^3/uL 150.0-400.0 MPV 9.6 fL 7.0-11.0 NE% 59.9 % 40.0-79.0 LY% 28.1 % 10.0-50.0 MO% 7.7 % 3.0-13.0 EO% 3.9 % 1.0-3.0 BA% 0.4 % 0.0-2.0 NE# 4.1 x10^3/uL 1.5-6.6 LY# 1.9 x10^3/uL 1.5-3.5 MO# 0.5 x10^3/uL 0.0-1.0 EO# 0.3 x10^3/uL 0.0-0.7 BA# 0.0 x10^3/uL 0.0-0.1 TSH - 05/04/19 15:42 TSH 0.969 uIU/mL 0.358-3.740 COMPREHENSIVE METABOLIC PANEL - 05/04/19 15:42 ALBUMIN 3.2 g/dL 3.4-5.0 ALKALINE PHOSPHATASE 129 U/L 46-116 ALT (SGPT) 14 U/L 12-78 AST (SGOT) 11 U/L 15-37 BUN 7 mg/dL 7-18 CALCIUM 8.6 mg/L 8.5-10.1 CHLORIDE 102 mmol/L 98-107 CO2 22.7 mmol/L 21.0-32.0 CREATININE 1.0 mg/dL 0.6-1.3 BILIRUBIN, DIRECT 0.2 mg/dL 0.0-0.2 GLUCOSE, RANDOM 96 mg/dL 74-106 POTASSIUM 3.4 mmol/L 3.5-5.1 SODIUM 136.0 mmol/L 136.0-145.0 BILIRUBIN, TOTAL 0.5 mg/mL 0.2-1.0 TOTAL PROTEIN 6.9 g/dL 6.4-8.2 BCRATIO 7.2 Ratio NRG AGAP 14.70 mmol/l 5.00-15.00 EGFRNAA >60 mL/min/1.73m2 NRG GLOB 3.7 g/dL 2.0-5.0 AGRATIO 0.9 Ratio 1.1-2.5 UA with Culture, If Indicated Standard - 05/05/19 21:45 Color Ur Auto Dark yellow NRG Appearance Ur Cloudy Clear Glucose Ur Ql Strip.auto Negative NRG Bilirub Ur Ql Strip 2+ NRG Ketones Ur Ql Strip 1+ Negative Sp Gr Ur Strip.auto >=1.030 1.005-1.03 0 RBC Ur Ql Auto Negative Negative pH Ur Strip.auto 5.5 NRG Prot Ur Strip-mCnc 2+ Negative Urobilinogen Ur Strip.auto-mCnc 2.0 0.2 Nitrite Ur Ql Strip Negative Negative Leukocyte esterase Ur Ql Strip Negative Negative Micro? Yes NRG Breakpoint NRG Urinalysis Microscopic (34) - 05/05/19 2 1:45 WBC #/area UrnS HPF 0-3 /HPF 0-3 Mucous Threads UrnS Ql Micro Present N ot Present EPITHELIAL CELLS.SQUAMOUS:ACNC:PT:URINE SED:ORD:MICROS COPY.LIGHT 1+ NRG Culture? No NRG URINALYSIS MICROSCOPIC PANEL:-:PT:URINE SED:-: Not Present 0-2 URATE CRYSTALS.AMORPHOUS:PRTHR:PT:URINE SED:ORD:MICROS COPY.LIGHT Large NRG CALCIUM OXALATE CRYSTALS:PRTHR:PT:URINE SED:ORD:MICROS COPY.LIGHT Moderate NRG PT - 05/06/19 07:23 COAGULATION TISSUE FACTOR INDUCED:TIME:PT:BLD:QN:COAG 10.7 second(s) 9.1-11.9 COAGULATION TISSUE FACTOR INDUCED.INR:RELTIME:PT:BLD:Q N:COAG 1.1 1.0-2.0 Comprehensive Metabolic Panel Standard - 05/06/19 07:23 Sodium SerPl-sCnc 137 mmol/L 136-145 Potassium SerPl-sCnc 3.90 mmol/L 3.50-5. 10 Chloride SerPl-sCnc 110 mmol/L 98-107 CO2 SerPl-sCnc 19.0 mmol/L 23.0-31.0 BUN SerPl-mCnc 8.0 mg/dL 5.7-25.7 Creat SerPl-mCnc 1.05 mg/dL 0.72-1.25 Glucose SerPl-mCnc 87 mg/dL 70-110 Calcium SerPl-mCnc 9.2 mg/dL 9.0-10.6 Prot SerPl-mCnc 7.0 g/dL 6.0-8.3 Albumin SerPl-mCnc 3.7 g/dL 3.4-4.8 AST SerPl-cCnc 16 unit/L 5-34 ALT SerPl-cCnc 9 unit/L 0-55 Bilirub SerPl-mCnc 0.6 mg/dL 0.2-1.2 Anion Gap SerPl-sCnc 11.9 10.0-20.0 BUN/Creat SerPl-mRto 7.62 9.00-30.0 0 Globulin Ser Calc-mCnc 3.3 g/dL 2.0-3.5 Breakpoint NRG A/G Ratio 1.1 0.8-2.0 Alk Phos 128 unit/L 40-150 OSMOLALITY:OSMOL:PT:SER/PLAS:QN: 272 mOsm/L 266-301 GLOMERULAR FILTRATION RATE/1.73 SQ M.PRE DICTED.NON BLACK:ARVRAT:PT:SER/PLAS:QN:CREATININE-BASED FORMULA (MDRD) 70.9 mL/min/1.73m2 >=60.0 Auto Diff Standard - 05/06/19 07:23 Neutrophils NFr Bld Auto 49 % 55-75 Lymphocytes NFr Bld Auto 35 % 20-40 Monocytes NFr Bld Auto 11 % 0-7 Eosinophil NFr Bld Auto 4 % 0-7 Basophils NFr Bld Auto 0.30 % 0.00-1. 07 Neutrophils # Bld Auto 3.4 x10 2.5-7.8 Lymphocytes # Bld Auto 2.4 x10 0.9-4.7 Monocytes # Bld Auto 0.8 x10 0.0-0.7 Eosinophil # Bld Auto 0.3 x10 0.0-0.3 Basophils # Bld Auto 0.0 x10 0.0-0.1 Breakpoint NRG CBC w/Diff Standard - 05/06/19 07:23 WBC # Bld Auto 6.8 x10 4.5-10.5 RBC # Bld Auto 4.52 x10 4.60-6.20 Hgb Bld-mCnc 15.0 gm/dL 13.0-19.0 Hct VFr Bld Auto 42.7 % 39.0-55.0 MCV RBC Auto 94.5 fL 80.0-97.0 MCH RBC Qn Auto 33.2 pg 27.0-31.0 MCHC RBC Auto-mCnc 35.1 gm/dL 31.0-36.0 RDW RBC Auto-Rto 14.9 % 10.0-20.0 Platelet # Bld Auto 286 x10 150-450 MPV Bld Auto 9.7 fL 8.0-11.0 Breakpoint NRG ERYTHROCYTE DISTRIBUTION WIDTH:ENTVOL:PT:RBC:QN:AUTOMA YOMI COUNT 50.2 fL 37.0-54.0 Lipid Panel 8 - 05/06/19 07:23 Trigl SerPl-mCnc 71.0 mg/dL 35.0-150.0 HDLc SerPl-mCnc 40 mg/dL 29-71 Cholesterol 101 mg/dL 0-200 LIPOPROTEIN.BETA:MCNC:PT:SER/PLAS:QN:CALCULATED 46 .80 mg/dL 1-129 TSH - 05/06/19 07:23 TSH SerPl DL<=0.05 mIU/L-aCnc 2.37 uIU/mL 0.35-4.94 Vit B12 & Folate - 05/06/19 07:23 Vit B12 Ser-mCnc 646 pg/mL 200-1100 Folate SerPl-mCnc 4.0 ng/mL 7.0-31.4 Hgb A1c - 05/06/19 07:25 Hgb A1c 5.1 % 0.0-6.0 EKG (34) - 05/06/19 07:35 EKG (Lab) See Scanned Report NRG Auto Diff Standard - 05/15/19 08:01 Neutrophils NFr Bld Auto 65 % 55-75 Lymphocytes NFr Bld Auto 25 % 20-40 Monocytes NFr Bld Auto 7 % 0-7 Eosinophil NFr Bld Auto 2 % 0-7 Basophils NFr Bld Auto 0.30 % 0.00-1. 07 Neutrophils # Bld Auto 4.6 x10 2.5-7.8 Lymphocytes # Bld Auto 1.8 x10 0.9-4.7 Monocytes # Bld Auto 0.5 x10 0.0-0.7 Eosinophil # Bld Auto 0.2 x10 0.0-0.3 Basophils # Bld Auto 0.0 x10 0.0-0.1 Breakpoint NRG CBC w/Diff Standard - 05/15/19 08:01 WBC # Bld Auto 7.1 x10 4.5-10.5 RBC # Bld Auto 4.34 x10 4.60-6.20 Hgb Bld-mCnc 14.1 gm/dL 13.0-19.0 Hct VFr Bld Auto 43.2 % 39.0-55.0 MCV RBC Auto 99.5 fL 80.0-97.0 MCH RBC Qn Auto 32.5 pg 27.0-31.0 MCHC RBC Auto-mCnc 32.6 gm/dL 31.0-36.0 RDW RBC Auto-Rto 14.7 % 10.0-20.0 Platelet # Bld Auto 295 x10 150-450 MPV Bld Auto 9.5 fL 8.0-11.0 Breakpoint NRG ERYTHROCYTE DISTRIBUTION WIDTH:ENTVOL:PT:RBC:QN:AUTOMA YOMI COUNT 52.6 fL 37.0-54.0 Comprehensive Metabolic Panel Standard - 05/15/19 08:01 Sodium SerPl-sCnc 139 mmol/L 136-145 Potassium SerPl-sCnc 3.90 mmol/L 3.50-5. 10 Chloride SerPl-sCnc 101 mmol/L 98-107 CO2 SerPl-sCnc 28.0 mmol/L 23.0-31.0 BUN SerPl-mCnc 15.0 mg/dL 5.7-25.7 Creat SerPl-mCnc 0.96 mg/dL 0.72-1.25 Glucose SerPl-mCnc 106 mg/dL 70-110 Calcium SerPl-mCnc 9.3 mg/dL 9.0-10.6 Prot SerPl-mCnc 6.7 g/dL 6.0-8.3 Albumin SerPl-mCnc 3.6 g/dL 3.4-4.8 AST SerPl-cCnc 17 unit/L 5-34 ALT SerPl-cCnc 18 unit/L 0-55 Bilirub SerPl-mCnc 0.4 mg/dL 0.2-1.2 Anion Gap SerPl-sCnc 13.9 10.0-20.0 BUN/Creat SerPl-mRto 15.62 9.00-30.0 0 Globulin Ser Calc-mCnc 3.1 g/dL 2.0-3.5 Breakpoint NRG A/G Ratio 1.2 0.8-2.0 Alk Phos 95 unit/L 40-150 OSMOLALITY:OSMOL:PT:SER/PLAS:QN: 279 mOsm/L 266-301 GLOMERULAR FILTRATION RATE/1.73 SQ M.PRE DICTED.NON BLACK:ARVRAT:PT:SER/PLAS:QN:CREATININE-BASED FORMULA (MDRD) 78.6 mL/min/1.73m2 >=60.0 COMPLETE BLOOD COUNT - 05/29/19 14:31 HEMATOCRIT 37.9 % 40.0-50.0 HEMOGLOBIN 12.8 g/dL 13.5-18.0 WBC 5.5 x10^3/uL 4.0-11.0 RBC 4.1 x10^6/uL 4.6-6.2 MCV 93.3 fL 82.0-96.0 MCH 31.5 pg 28.0-33.0 MCHC 33.8 g/dL 32.0-36.0 RDW-SD 45.9 fL 35.1-43.9 RDW-CV 13.8 % 11.5-14.5 PLT 259.0 x10^3/uL 150.0-400.0 MPV 8.9 fL 7.0-11.0 NE% 53.9 % 40.0-79.0 LY% 29.2 % 10.0-50.0 MO% 14.3 % 3.0-13.0 EO% 2.4 % 1.0-3.0 BA% 0.2 % 0.0-2.0 NE# 2.9 x10^3/uL 1.5-6.6 LY# 1.6 x10^3/uL 1.5-3.5 MO# 0.8 x10^3/uL 0.0-1.0 EO# 0.1 x10^3/uL 0.0-0.7 BA# 0.0 x10^3/uL 0.0-0.1 MAGNESIUM - 05/29/19 14:31 MAGNESIUM 1.6 mg/dL 1.8-2.4 ALCOHOL ETHANOL - 05/29/19 14:31 ALCOHOL ETHANOL <0.003 g/dL NRG COMPREHENSIVE METABOLIC PANEL - 05/29/19 14:31 ALBUMIN 3.1 g/dL 3.4-5.0 ALKALINE PHOSPHATASE 103 U/L 46-116 ALT (SGPT) 32 U/L 12-78 AST (SGOT) 23 U/L 15-37 BUN 13 mg/dL 7-18 CALCIUM 8.8 mg/L 8.5-10.1 CHLORIDE 101 mmol/L 98-107 CO2 18.6 mmol/L 21.0-32.0 CREATININE 1.1 mg/dL 0.6-1.3 BILIRUBIN, DIRECT 0.2 mg/dL 0.0-0.2 GLUCOSE, RANDOM 98 mg/dL 74-106 POTASSIUM 3.1 mmol/L 3.5-5.1 SODIUM 133.0 mmol/L 136.0-145.0 BILIRUBIN, TOTAL 0.5 mg/mL 0.2-1.0 TOTAL PROTEIN 6.7 g/dL 6.4-8.2 BCRATIO 11.5 Ratio NRG AGAP 16.50 mmol/l 5.00-15.00 EGFRNAA >60 mL/min/1.73m2 NRG GLOB 3.6 g/dL 2.0-5.0 AGRATIO 0.9 Ratio 1.1-2.5 OSMO 266.0 mOsm/kg 280.0-300.0 ACETAMINOPHEN - 05/29/19 14:31 ACETAMINOPHEN 0.0 ug/mL 0.0-30.0 SALICYLATE - 05/29/19 14:31 SALICYLATE 0.20 mg/dL 0.20-20.00 TSH - 05/29/19 14:31 TSH 1.430 uIU/mL 0.358-3.740 FREE T4 - 05/29/19 14:31 FREE T4 1.1 ng/dL 0.8-1.5 URINALYSIS - 05/29/19 16:28 URINE PROTEIN Negative mg/dL NEGATIVE UCOL Yellow YELLOW UAPP Clear CLEAR UGLU Negative mg/dL NEGATIVE UKET Negative mg/dL NEGATIVE UBIL Negative NEGATIVE USG 1.010 1.005-1.025 UPH 5.5 5.0-7.0 UBLD Negative NEGATIVE UURO 1.0 mg/dL 0.2-1.0 UNIT Negative NEGATIVE ULEU Negative NEGATIVE URINE DRUG SCREEN - 05/29/19 16:28 UTCAS Negative NEGATIVE UBARBS Negative NEGATIVE UMETH Negative NEGATIVE UBENZO Negative NEGATIVE UTHCS Negative NEGATIVE UOPIS Negative NEGATIVE UAMPS Negative NEGATIVE UCOCS Negative NEGATIVE UPCPS Negative NEGATIVE UPROPO Negative NEGATIVE UMETHS Negative NEGATIVE UOXY Negative NEGATIVE UA with Culture, If Indicated Standard - 05/30/19 01:50 Color Ur Auto Yellow Yellow Appearance Ur Clear Clear Glucose Ur Ql Strip.auto Negative NRG Bilirub Ur Ql Strip Negative NRG Ketones Ur Ql Strip Negative Negative Sp Gr Ur Strip.auto 1.010 1.005-1.03 0 RBC Ur Ql Auto Negative Negative pH Ur Strip.auto 6.0 NRG Prot Ur Strip-mCnc Negative Negative Urobilinogen Ur Strip.auto-mCnc 0.2 0.2 Nitrite Ur Ql Strip Negative Negative Leukocyte esterase Ur Ql Strip Negative Negative Urine Source Clean Catch NRG Micro? Yes NRG Breakpoint NRG Urinalysis Microscopic (34) - 05/30/19 0 1:50 WBC #/area UrnS HPF 0-3 /HPF 0-3 Bacteria #/area UrnS HPF Trace /HPF Trac e EPITHELIAL CELLS.SQUAMOUS:ACNC:PT:URINE SED:ORD:MICROS COPY.LIGHT Trace NRG Culture? No NRG URINALYSIS MICROSCOPIC PANEL:-:PT:URINE SED:-: Not Present 0-2 URATE CRYSTALS.AMORPHOUS:PRTHR:PT:URINE SED:ORD:MICROS COPY.LIGHT Few NRG Comprehensive Metabolic Panel Standard - 05/30/19 10:05 Sodium SerPl-sCnc 140 mmol/L 136-145 Potassium SerPl-sCnc 3.80 mmol/L 3.50-5. 10 Chloride SerPl-sCnc 109 mmol/L 98-107 CO2 SerPl-sCnc 20.0 mmol/L 23.0-31.0 BUN SerPl-mCnc 11.0 mg/dL 5.7-25.7 Creat SerPl-mCnc 0.99 mg/dL 0.72-1.25 Glucose SerPl-mCnc 84 mg/dL 70-110 Calcium SerPl-mCnc 9.7 mg/dL 9.0-10.6 Prot SerPl-mCnc 7.1 g/dL 6.0-8.3 Albumin SerPl-mCnc 3.8 g/dL 3.4-4.8 AST SerPl-cCnc 22 unit/L 5-34 ALT SerPl-cCnc 18 unit/L 0-55 Bilirub SerPl-mCnc 0.5 mg/dL 0.2-1.2 Anion Gap SerPl-sCnc 14.8 10.0-20.0 BUN/Creat SerPl-mRto 11.11 9.00-30.0 0 Globulin Ser Calc-mCnc 3.3 g/dL 2.0-3.5 Breakpoint NRG A/G Ratio 1.2 0.8-2.0 Alk Phos 101 unit/L 40-150 OSMOLALITY:OSMOL:PT:SER/PLAS:QN: 278 mOsm/L 266-301 GLOMERULAR FILTRATION RATE/1.73 SQ M.PRE DICTED.NON BLACK:ARVRAT:PT:SER/PLAS:QN:CREATININE-BASED FORMULA (MDRD) 75.6 mL/min/1.73m2 >=60.0 Auto Diff Standard - 05/30/19 10:05 Neutrophils NFr Bld Auto 55 % 55-75 Lymphocytes NFr Bld Auto 31 % 20-40 Monocytes NFr Bld Auto 10 % 0-7 Eosinophil NFr Bld Auto 4 % 0-7 Basophils NFr Bld Auto 0.40 % 0.00-1. 07 Neutrophils # Bld Auto 3.0 x10 2.5-7.8 Lymphocytes # Bld Auto 1.7 x10 0.9-4.7 Monocytes # Bld Auto 0.5 x10 0.0-0.7 Eosinophil # Bld Auto 0.2 x10 0.0-0.3 Basophils # Bld Auto 0.0 x10 0.0-0.1 Breakpoint NRG CBC w/Diff Standard - 05/30/19 10:05 WBC # Bld Auto 5.4 x10 4.5-10.5 RBC # Bld Auto 4.38 x10 4.60-6.20 Hgb Bld-mCnc 14.3 gm/dL 13.0-19.0 Hct VFr Bld Auto 41.8 % 39.0-55.0 MCV RBC Auto 95.4 fL 80.0-97.0 MCH RBC Qn Auto 32.6 pg 27.0-31.0 MCHC RBC Auto-mCnc 34.2 gm/dL 31.0-36.0 RDW RBC Auto-Rto 14.2 % 10.0-20.0 Platelet # Bld Auto 278 x10 150-450 MPV Bld Auto 9.4 fL 8.0-11.0 Breakpoint NRG ERYTHROCYTE DISTRIBUTION WIDTH:ENTVOL:PT:RBC:QN:AUTOMA YOMI COUNT 48.2 fL 37.0-54.0 Lipid Panel 8 - 05/30/19 10:05 Trigl SerPl-mCnc 73.0 mg/dL 35.0-150.0 HDLc SerPl-mCnc 42 mg/dL 29-71 Cholesterol 118 mg/dL 0-200 LIPOPROTEIN.BETA:MCNC:PT:SER/PLAS:QN:CALCULATED 61 .40 mg/dL 1-129 TSH - 05/30/19 10:05 TSH SerPl DL<=0.05 mIU/L-aCnc 1.76 uIU/mL 0.35-4.94 Vit B12 & Folate - 05/30/19 10:05 Vit B12 Ser-mCnc 486 pg/mL 200-1100 Folate SerPl-mCnc 9.2 ng/mL 7.0-31.4 EKG (34) - 05/30/19 10:10 EKG (Lab) See Scanned Report NRG Comprehensive Metabolic Panel Standard - 05/31/19 20:20 Sodium SerPl-sCnc 139 mmol/L 136-145 Potassium SerPl-sCnc 3.90 mmol/L 3.50-5. 10 Chloride SerPl-sCnc 107 mmol/L 98-107 CO2 SerPl-sCnc 21.0 mmol/L 23.0-31.0 BUN SerPl-mCnc 14.0 mg/dL 5.7-25.7 Creat SerPl-mCnc 0.94 mg/dL 0.72-1.25 Glucose SerPl-mCnc 102 mg/dL 70-110 Calcium SerPl-mCnc 9.3 mg/dL 9.0-10.6 Prot SerPl-mCnc 7.2 g/dL 6.0-8.3 Albumin SerPl-mCnc 3.9 g/dL 3.4-4.8 AST SerPl-cCnc 15 unit/L 5-34 ALT SerPl-cCnc 12 unit/L 0-55 Bilirub SerPl-mCnc 0.3 mg/dL 0.2-1.2 Anion Gap SerPl-sCnc 14.9 10.0-20.0 BUN/Creat SerPl-mRto 14.89 9.00-30.0 0 Globulin Ser Calc-mCnc 3.3 g/dL 2.0-3.5 Breakpoint NRG A/G Ratio 1.2 0.8-2.0 Alk Phos 100 unit/L 40-150 OSMOLALITY:OSMOL:PT:SER/PLAS:QN: 278 mOsm/L 266-301 GLOMERULAR FILTRATION RATE/1.73 SQ M.PRE DICTED.NON BLACK:ARVRAT:PT:SER/PLAS:QN:CREATININE-BASED FORMULA (MDRD) 80.3 mL/min/1.73m2 >=60.0 Auto Diff Standard - 05/31/19 20:20 Neutrophils NFr Bld Auto 53 % 55-75 Lymphocytes NFr Bld Auto 36 % 20-40 Monocytes NFr Bld Auto 7 % 0-7 Eosinophil NFr Bld Auto 4 % 0-7 Basophils NFr Bld Auto 0.40 % 0.00-1. 07 Neutrophils # Bld Auto 3.8 x10 2.5-7.8 Lymphocytes # Bld Auto 2.6 x10 0.9-4.7 Monocytes # Bld Auto 0.5 x10 0.0-0.7 Eosinophil # Bld Auto 0.3 x10 0.0-0.3 Basophils # Bld Auto 0.0 x10 0.0-0.1 Breakpoint NRG CBC w/Diff Standard - 05/31/19 20:20 WBC # Bld Auto 7.3 x10 4.5-10.5 RBC # Bld Auto 4.16 x10 4.60-6.20 Hgb Bld-mCnc 13.5 gm/dL 13.0-19.0 Hct VFr Bld Auto 40.7 % 39.0-55.0 MCV RBC Auto 97.8 fL 80.0-97.0 MCH RBC Qn Auto 32.5 pg 27.0-31.0 MCHC RBC Auto-mCnc 33.2 gm/dL 31.0-36.0 RDW RBC Auto-Rto 14.6 % 10.0-20.0 Platelet # Bld Auto 301 x10 150-450 MPV Bld Auto 8.9 fL 8.0-11.0 Breakpoint NRG ERYTHROCYTE DISTRIBUTION WIDTH:ENTVOL:PT:RBC:QN:AUTOMA YOMI COUNT 50.5 fL 37.0-54.0 Encounters ACCT No. Visit Date/Time Discharge Status Pt. Type Provider Facility Loc./Unit Complaint [id number] 12/02/2018 09:05:10 12/02/2018 23:59: 59 CLS Outpatient ABBY TOMAS I [id number] 05/11/2018 09:21:00 05/11/2018 09:21: 00 DIS Outpatient ABBY TOMAS I [id number] 10/06/2017 14:29:00 10/06/2017 14:29: 00 DIS Outpatient ABBY TOMAS I [id number] 07/30/2017 09:57:00 07/30/2017 09:57: 00 DIS Outpatient ABBY TOMAS I [id number] 04/30/2017 09:52:00 04/30/2017 23:59: 59 CLS Outpatient Kiran GUO, [id number] 03/19/2017 10:46:00 03/19/2017 23:59: 59 CLS Outpatient Kiran GUO, [id number] 07/21/2019 15:14:48 Document Registration [id number] 06/16/2019 11:30:58 Document Registration [id number] 04/08/2016 15:18:31 04/08/2016 23:59:5 9 CLS Outpatient [id number] 06/13/2019 11:25:00 Document Registration [id number] 05/30/2019 01:37:00 Document Registration [id number] 05/23/2019 08:15:00 Document Registration [id number] 05/05/2019 23:05:19 Document Registration [id number] 03/20/2019 08:56:01 Document Registration [id number] 02/17/2019 14:45:29 ACT Inpatient Kalyani Rush [facility] bree [id number] 09/09/2018 08:00:00 09/09/2018 23:5 9:00 DIS Outpatient Óscar Bermudez [facility] [id number] 08/25/2018 07:00:00 09/09/2018 23:5 9:00 DIS Outpatient Arianna Arzola [facility] pro fee [id number] 08/25/2018 12:40:00 09/09/2018 13:2 0:00 DIS Inpatient Kalyani Rush [facility] BREE resistive with cares, push s tafalexx away, believes some guys are going to shoot him, increase delusions [id number] 05/29/2019 14:14:00 20:40:00 DIS Emergency Tyree Lam 2 [id number] 05/04/2019 15:32:00 23:59:00 DIS Outpatient 24 [id number] 04/27/2019 13:57:00 23:59:00 DIS Outpatient Eva Rader 24 [id number] 04/16/2019 12:06:00 18:07:00 DIS Emergency Eva Rader 2 [id number] 03/24/2019 08:22:00 23:59:00 DIS Outpatient Eva Rader 24 [id number] 02/12/2019 10:12:00 12:40:00 DIS Emergency Eva Rader 2 [id number] 12/07/2018 11:08:00 23:59:00 DIS Outpatient MANUEL DARLING 24 [id number] 12/07/2018 11:07:00 12:21:00 DIS Outpatient MANUEL DARLING 71 [id number] 10/06/2018 16:09:00 23:59:00 DIS Outpatient YAJAIRA RODRIGUES I 24 [id number] 09/23/2018 08:19:00 15:16:22 DIS Outpatient YAJAIRA RODRIGUES I 24 [id number] 09/15/2018 14:06:00 23:59:00 DIS Outpatient YAJAIRA RODRIGUES I 24 [id number] 08/23/2018 15:20:00 019 23:59:00 DIS Outpatient MARSHA GARCIAFany, YAJAIRA I 24 [id number] 08/20/2018 11:31:00 019 23:59:00 DIS Outpatient MARSHA GARCIAFany YAJAIRA I 24 [id number] 08/04/2018 09:08:00 23:59:00 DIS Outpatient MARSHA ELIZABETHRAVINFany, YAJAIRA I 24 [id number] 08/02/2018 14:56:00 23:59:00 DIS Outpatient MARIIAR ELIZABETHRAVINFany, YAJAIRA I 24 [id number] 07/22/2018 08:40:00 23:59:00 DIS Outpatient MARSHA ELIZABETHRAVINFany YAJAIRA I 24 [id number] 06/22/2018 11:03:00 23:59:00 DIS Outpatient MARSHA GARCIAFany YAJAIRA I 24 [id number] 06/08/2018 12:41:00 06/09/19 19 13:28:00 DIS Outpatient MANUEL DARLING 71 [id number] 05/27/2018 18:41:00 05/27/19 19 23:59:00 DIS Outpatient 24 [id number] 05/27/2018 07:49:00 05/27/19 19 23:59:00 DIS Outpatient MARIIADiamante ELLIOTT YAJAIRA I 24 [id number] 04/22/2018 08:56:00 04/22/19 19 23:59:00 DIS Outpatient ALVAREZDONNAR SOL YAJAIRA I 24 [id number] 03/25/2018 08:00:00 03/25/20 18 23:59:00 DIS Outpatient ALVARZELOWELLYAJAIRA GARAY I 24 [id number] 03/19/2018 14:15:00 03/19/20 18 23:59:00 DIS Outpatient 24 [id number] 07/11/2015 06:07:29 07/11/2015 06:0 7:29 DIS Outpatient [id number] 08/18/2018 10:52:00 05/15/2 019 11:32:00 DIS Outpatient Lamar SEGOVIA, Bed P HMG.NEPH CHROKIDDIS [id number] 08/17/2018 23:59:00 23:59:59 CLS Outpatient Lamar SEGOVIA, Bed P HMG.NEPH [id number] 07/28/2018 23:59:00 23:59:59 CLS Outpatient Humaira Sumner, Manuel YOU.URO [id number] 06/08/2018 06:22:00 14:26:00 DIS Outpatient Humaira Sumner, [facility] HMG.URO.GO 6mo/prostate cancer follow u p [id number] 05/11/2018 09:39:00 09:45:00 DIS Outpatient Genoveva SEGOVIA, [facility] HMG.CAR.CO 6 mo f/u no prior testing [id number] 10/22/2017 09:53:00 23:59:59 [facility] Shortness of air [id number] 10/06/2017 14:42:00 15:00:00 DIS Outpatient Genoveva SEGOVIA, [facility] HMG.CAR.CO Afib/HFU - per Dr. Alcides quiros [id number] 10/06/2017 08:50:00 12:50:00 DIS Outpatient Humaira Sumner, [facility] HMG.URO.GO PROSTATECA [id number] 08/18/2017 13:49:00 23:59:59 CLS Outpatient Lamar SEGOVIA, [facility] L.NEPH.P [id number] 08/18/2017 11:11:00 018 11:57:00 DIS Outpatient Lamar SEGOVIA, [facility] HMG.NEPH CHROKIDDIS [id number] 08/04/2017 09:49:00 018 09:50:00 DIS Outpatient Marcia DE LEÓN, [facility] IMG.HO.MRI SLURRED SPEECH, R/O STRO KE [id number] 07/30/2017 10:04:00 018 10:00:00 DIS Outpatient Genoveva SEGOVIA, [facility].CAR.CO AFIB [id number] 04/30/2017 10:00:00 018 23:59:59 CLS Outpatient Sari SEGOVIA, [facility].[place] FOLLOW UP POST ER [id number] 03/19/2017 11:00:00 23:59:59 CLS Outpatient Sari SEGOVIA, [facility] 1 YR F/U NO TESTING PRIOR [id number] 07/17/2016 17:14:00 00:01:00 DIS Outpatient Aaron Ramos [facility] [id number] 12/09/2016 14:47:00 017 23:59:59 CLS Outpatient Lamar SEGOVIA, [facility] L.NEPH.P 1 YR/F/U FOR CKD [id number] 12/09/2016 13:20:00 017 23:59:59 CLS Outpatient Lamar SEGOVIA, [facility] HMG.NEPH 1 YR/F/U FOR CKD [id number] 10/15/2016 07:45:00 017 23:59:59 CLS Outpatient Humaira Sumner, [facility].[place] 2 MTHS/RETENTION [id number] 08/05/2016 07:30:00 017 23:59:59 CLS Outpatient Humaira Sumner, [facility].[place] 6 MTHS/CAP [id number] 12/14/2015 08:26:00 00:01:00 DIS Outpatient Aaron Ramos [facility] [id number] 02/14/2016 11:00:00 23:59:59 CLS Outpatient Robina SEGOVIA, [facility].CO 1 YR F/U ECHO PRIOR [id number] 02/05/2016 07:15:00 23:59:59 CLS Outpatient Humaira Sumner, [facility] HMG.[place] [id number] 12/12/2015 15:17:00 23:59:59 CLS Outpatient Lamar SEGOVIA, [facility] L.NEPH.P 9MO F/U FOR CKD [id number] 12/12/2015 14:00:00 23:59:59 CLS Outpatient Lamar SEGOVIA, [facility] HMG.NEPH [id number] 08/15/2015 11:00:00 23:59:59 CLS Outpatient Humaira Sumner, [facility] HMG.WKU[place] [id number] 06/11/2015 12:13:00 23:59:59 CLS Outpatient Lamar SEGOVIA, [facility] L.NEPH.P [id number] 05/25/2015 12:42:00 016 23:59:00 DIS Outpatient Aaron Ramos [facility] IMG.CT [id number] 05/23/2015 09:59:00 016 23:59:00 DIS Outpatient Aaron Ramos [facility] IMG.CT [id number] 05/02/2015 10:00:00 10:00:00 CAN Preadmit Aaron Ramos [facility] IMG.CT [id number] 03/08/2015 14:33:00 23:59:59 CLS Outpatient Yeyo DE LEÓN [facility] NCBIANCA [id number] 10/16/2014 16:55:00 23:59:59 CLS Outpatient Lamar SEGOVIA, [facility] L.NEPH.P [id number] 01/16/2014 14:59:00 23:59:59 CLS Outpatient Lamar SEGOVIA, [facility] L.NEPH.P [id number] 07/11/2013 15:05:00 23:59:59 CLS Outpatient Lamar SEGOVIA, [facility] L.NEPH.P [id number] 12/20/2012 14:53:00 23:59:59 CLS Outpatient Lamar SEGOVIA, [facility] L.NEPH.P [id number] 06/23/2012 14:46:00 23:59:59 CLS Outpatient Lamar SEGOVIA, [facility] L.NEPH.P [id number] 03/18/2012 14:44:00 23:59:59 CLS Outpatient Thierry [facility]OVIA [id number] 10/17/2011 12:00:00 23:59:59 CLS Outpatient Lamar SEGOVIA, [facility] L.NEPH.P [id number] 02/17/2019 11:00:00 Document Registration [id number] 10/29/2017 13:45:00 Document Registration [id number] 10/02/2017 14:14:00 Document Registration [id number] 08/20/2017 14:58:00 Document Registration [id number] 08/18/2017 11:11:00 Document Registration [id number] 07/28/2017 14:47:00 Document Registration [id number] 07/24/2017 08:31:00 Document Registration [id number] 07/23/2017 15:24:00 Document Registration [id number] 08/06/2018 10:16:00 Document Registration [id number] 09/10/2017 09:57:00 09/10/2017 09:57 :00 DIS Outpatient SHAHRZAD SEGOVIA, [facility] [id number] 01/06/2019 16:15:00 01/06/2019 23:59: 59 CLS Outpatient EVA RADER [facility] [id number] 11/18/2018 15:14:00 11/18/2018 23:59: 59 [facility] [id number]/06/2018 15:36:00 10/06/2018 23:59: 59 [facility] [id number] 08/23/2018 14:46:00 08/23/2018 23:59: 59 [facility] [id number] 08/20/2018 10:53:00 08/20/2018 23:59: 59 CLS [facility] [id number] 08/02/2018 14:35:00 08/02/2018 23:59: 59 CLS Outpatient [facility] [id number] 06/14/2018 10:02:00 06/14/2018 23:59: 59 CLS [facility] [id number] 06/06/2019 20:21:00 Document Registration [id number] 06/04/2019 09:11:00 Document Registration [id number] 04/17/2019 03:22:00 Document Registration [id number] 11/15/2018 17:32:00 Document Registration [id number] 11/08/2018 07:27:00 Document Registration
[2019-09-03] MEDS ORDERED: TEMAZEPAM 7.5 MG CAP (RESTORIL) PO ONE (19:15)
[2019-09-03 19:18] LABS: CALCIUM 9.2 MG/DL (8.5-10.1); CREATININE SERUM 1.28 MG/DL (0.60-1.30); POTASSIUM 3.7 MMOL/L (3.6-5.0)
[2019-09-03 19:23] LABS: AMORPHOUS SEDIMENT,UR RARE AMOR URATES /LPF; BACTERIA,URINE NEGATIVE /HPF; SQUAMOUS EPITHELIAL CELL,UR 0-2 /HPF
--- NOTE | 2019-09-03 19:26 | NUR ---
Isadora at nursing facility notified of patient ready to come back to facility.
== END 2019-09-03 19:56 | disposition home or self-care (01) ==
LOC: ER 18:37
DX: G30.9 Alzheimer's disease, unspecified (principal); F02.81 Dementia in other diseases classified elsewhere, unspecified severity, with behavioral disturbance
CPT/HCPCS: 36415; 80048; 81000; 85025; 99283

== ENCOUNTER 2019-09-18 09:46 | Emergency (ER) | payer MEDICARE, MEDICAID ==
[~2019-09-18] VITALS: Ht 177.8 cm; Wt 107.7 kg
--- NOTE | 2019-09-18 10:19 | Diagnostic Imaging Report ---
PROCEDURE: CT head and CT cervical spine without contrast. TECHNIQUE: Multiple contiguous axial images were obtained through the brain and cervical spine without the use of intravenous contrast. Sagittal and coronal reformations through the cervical spine were then performed. Auto Exposure Controls were utilized during the CT exam to meet ALARA standards for radiation dose reduction. INDICATION: Head injury with hematoma in the back of head. No prior studies are available for comparison. CT HEAD: Ventricles and sulci are within normal limits. There is prominence of the CSF space along the frontal convexities bilaterally consistent with frontal lobe atrophy. There is no midline shift. No acute intra-axial or extra-axial hemorrhage is detected. Cisterns are patent. Visualized paranasal sinuses are clear. IMPRESSION: Chronic changes. No acute intracranial process is detected. CT cervical spine: Curvature and alignment of the cervical spine is normal. There is generalized degenerative disc disease with variable disc space narrowing and marginal spurring. No fractures are identified. Prevertebral tissues are within normal limits. Odontoid is intact. IMPRESSION: Cervical spondylosis. No acute bony abnormality is detected. Dictated by: Dictated on workstation # [id number]
--- OUTSIDE RECORDS SUMMARY | 2019-09-18 10:21 | XMS REPORT | Continuity of Care Document ---
Author Organization Unknown Address Unknown Phone Unavailable Allergies Active Description Code Type Severity Reaction Onset Reported/Identified Relationship to Patient Clinical Status Yes NKA NKA Drug Allergy N/A N/A Confirmed or Hunter ified Yes No known allergies ##NOMEN##,AL1,ceStruct,allergy,[id number],436461 Drug N/A N/A Yes ASPIRIN 1191 N/A N/A Yes NKDA NKDA N/A N/A Yes No Known Allergies Mis cellaneous Allergy Unknown 05/16/2011 Yes No Known Allergies No Known Allergies Miscellaneous Allergy Unknown N/A 05/16/2011 Yes No Known Allergies No Known Allergies Miscellaneous Allergy Unknown unknown 06/10/2018 Yes No Known Drug Allergies [id number] Drug Allergy Unknown N/A 08/18/2018 Yes No Known Drug Allergy NKDA N/A N/A 01/01/2019 Yes No Known Drug Allergies [id number] Drug Allergy Unknown N/A 09/03/2019 Medications Medication Packaging Start Date St op [...] 200 MG DAILY XARELTO 04/27/19 16 ORAL 55QC23RD daily TYLENOL 04/27/19 16 ORAL [id number] every 4 hrs TINACTIN 016 External 1%1% daily SEROQUEL 016 ORAL 081BA208ZL daily SENNA 04/27/2015 ORAL 8.6MG8.6MG twice d aily REMERON 04/27/19 16 ORAL 95IR07CQ daily RANITIDINE HCL 0 04/27/2015 ORAL 156BC799ES daily POTASSIUM CHLORIDE MICHELLE ER 04/27/2015 ORAL 56WQX54POA daily POLYETHYLENE GLYCOL 3350 04/27/2015 ORAL maria d y T PRN MILK OF MAGNESIA 04/27/2015 ORAL 1200MG/36YQ3953JE/15ML daily METOPROLOL TARTRATE 04/27/2015 ORAL 26BG20BZ t wice daily METAMUCIL 2015 ORAL 28.3%28.3% daily LISINOPRIL 04/27 ORAL 2.5MG2.5MG daily LEXAPRO 04/27/19 16 ORAL 46TA42NQ daily FUROSEMIDE 04/27 ORAL 01tk72HP daily FLOMAX 6 ORAL 0.4MG0.4MG daily EQL B-12 016 Oral 1058MUF6268REP korina ly DITROPAN XL 04/07 ORAL 5MG5MG three ti mes daily DILTIAZEM HCL ER 04/27/2015 ORAL 391QA228DZ daily COLACE 6 ORAL 191fj079EH every 1 2 hrs ATORVASTATIN CALCIUM 04/27/2015 ORAL 05LL53HH d aily ARTIFICIAL TEARS 04/27/2015 Ophthalmic 0.2-0.2-1%0.2-0.2-1% every 8 hrs ABILIFY 04/27/19 16 ORAL 94LV90AI daily SENNA-S 05/04/19 16 ORAL 8.6-50MG8.6-50MG t wice daily POLYETHYLENE GLYCOL 3350 05/04/2015 ORAL twic e daily MIRALAX 05/04/19 16 ORAL Ranitidine Hcl 150 MG 08/15/2015 150 MG BID LOPERAMIDE HCL/SIMETHICONE 1 EACH 08/15/2015 06/09/2018 PO 1 EACH M RANITIDINE HCL 150 MG 08/15/2015 PO 150 MG M Metoprolol Tartrate 25 MG 12/12/2015 12.5 MG BI D Nystatin 232152 UNIT/GRAM 08/05/2016 1 APPL AD NYSTATIN 15 GM 0 08/05/2016 06/09/2018 TP 1 APPL M PROMETHAZINE HCL 25 MG 08/05/2016 06/09/2018 PO 25 MG M DEXTROMETHORPHAN HBR 15 MG/5 ML 10/15/2016 06/09/2018 PO 15 MG M Fluticasone Propionate 50 MCG/ACTUATION 10/15/2016 1 SPRAY BID Montelukast Sodium 10 MG 12/09/2016 10 MG MARIA D Y ERGOCALCIFEROL (VITAMIN D2) 39422 UNIT 02/04/2017 06/09/2018 [place] [address] UNIT M Apixaban 5 MG 5 MG [...] Non-Formulary 06/02/2019 06/02/2019 <RXR.1.2>IM</RXR.1.2><RXR.1. 2>IM</RXR.1.2> 234 mg Auto Damage Trainee risperiDONE Tab 05/0806/07/2019 <RXR.1.2>Oral</RXR.1.2><RXR.1.2>Oral</RXR.1.2> 0.25 mg BID clonazePAM Tab 06/0506/06/2019 <RXR.1.2>Oral</RXR.1.2><RXR.1.2>Oral</RXR.1.2> 0.25 mg Once Template Non-Formulary 06/09/2019 06/09/2019 <RXR.1.2>IM</RXR.1.2><RXR.1. 2>IM</RXR.1.2> 156 mg Once Template Non-Formulary 06/09/2019 06/09/2019 <RXR.1.2>IM</RXR.1.2><RXR.1. 2>IM</RXR.1.2> 156 mg Auto Damage Trainee Template Non-Formulary 07/09/2019 06/13/2019 <RXR.1.2>IM</RXR.1.2><RXR.1. 2>IM</RXR.1.2> 39 [...] DISEASE, STAGE 3 (MODERATE) 06/13/2015 Kwabena Oh C 61 MALIGNANT NEOPLASM OF PROSTATE 06/13/2015 Kwabena Oh Other Z51.0 ENCOUNTER FOR ANTINEOPLASTIC RADIATION THERAPY 07/03/2015 Kwaebna Oh C 61 MALIGNANT NEOPLASM OF PROSTATE 07/03/2015 Kwabena Oh Other Z51.0 ENCOUNTER FOR ANTINEOPLASTIC RADIATION THERAPY 07/10/2015 Kwabena Oh C 61 MALIGNANT NEOPLASM OF PROSTATE 07/10/2015 Kwabena Oh Other Z51.0 ENCOUNTER FOR ANTINEOPLASTIC RADIATION THERAPY 12/12/2015 Lamar SEGOVIA, Bed P Other N18.3 CHRONIC KIDNEY DISEASE, STAGE 3 (MODERATE) 02/14/2016 Dc Quarles MD Other E66.01 MORBID (SEVERE) OBESITY DUE TO EXCESS CALORIES 02/14/2016 Dc Quarles MD Other E78.5 HYPERLIPIDEMIA UNSPECIFIED 02/14/2016 Dc Quarles MD Other I10 ESSENTIAL (PRIMARY) HYPERTENSION 02/14/2016 Dc Quarles MD Other I48.2 CHRONIC ATRIAL FIBRILLATION 08/05/2016 Phong Sumner, Manuel Bobby Other C61 MALIGNANT NEOPLASM OF PROSTATE 08/05/2016 Phong Sumner, Manuel Bobby Other N32.0 BLADDER-NECK OBSTRUCTION 08/05/2016 Phong Sumner, Manuel Bobby Other R33.8 OTHER RETENTION OF URINE 08/05/2016 Phong Sumner, Manuel Bobby Other Z92.3 PERSONAL HISTORY OF IRRADIATION 10/15/2016 Phong Sumner, Manuel Man C61 MALIGNANT NEOPLASM OF PROSTATE 10/15/2016 Phong Sumner, Manuel Man R33.8 OTHER RETENTION OF URINE 12/09/2016 Lamar SEGOIVA, Bed P Other E66.09 OTHER OBESITY DUE [...] of dyspnea 03/19/2017 Kiran GUO, S Z7901 terminal gauger (current) use of anticoagulants 03/19/2017 Clarissa Guo [...] disease, unspecified 04/30/2017 Kiran GUO, S Z7901 terminal gauger (current) use of anticoagulants 04/30/2017 Clarissa Guo MD Other E66.01 MORBID (SEVERE) OBESITY DUE TO EXCESS CALORIES 04/30/2017 Clarissa Guo MD Other I48.0 PAROXYSMAL ATRIAL FIBRILLATION 07/30/2017 JANABBY SANDS I S I10 Essential (primary) hypertension 07/30/2017 ABBY TOMAS I P I482 Chronic atrial fibrillation 07/30/2017 ABBY TOMAS I S I872 Venous insufficiency (chronic) (peripheral) 07/30/2017 ABBY TOMAS Z7901 terminal gauger (current) use of anticoagulants 08/04/2017 Homar Kennedy DO F R47.81 Slurred speech 08/18/2017 F E66.09 Ot er obesity due to excess calories 08/18/2017 F I12.9 Hype rtensive chronic kidney disease with stage 1 through stage 4 chronic kidney disease, or unspecified chronic kidney disease 08/18/2017 F I50.9 Hear t failure, unspecified 08/18/2017 F N18.3 Bryologist jer kidney disease, 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) 08/18/2017 F N18.9 Bryologist jer kidney disease, unspecified 08/18/2017 F R60.0 Loca lized edema 08/18/2017 F Z68.43 Bod y mass index (BMI) 50-59.9 , adult 08/18/2017 F Z87.448 Pe rsonal history of other diseases of urinary system 08/18/2017 Other N18.9 N 18.9 - Chronic kidney disease, unspecified 09/10/2017 SHAHRZAD SEGOVIA, GARCIA Ramos R19.7 Diarrhea, unspecified 10/06/2017 JANIF, MOHAMMED I S E876 Hypokalemia 10/06/2017 JANIF, MOHAMMED I S I10 Essential (primary) hypertension 10/06/2017 JANIF, MOHAMMED I P I482 Chronic atrial fibrillation 10/06/2017 JANIF, MOHAMMED I S I872 Venous insufficiency (chronic) (peripheral) 10/06/2017 JANIF, MOHAMMED I S Z7901 terminal gauger (current) use of anticoagulants 05/11/2018 JANIF, MOHAMMED I S I10 Essential (primary) hypertension 05/11/2018 JANIF, MOHAMMED I P I482 Chronic atrial fibrillation 05/11/2018 JANIF, MOHAMMED I S I872 Venous insufficiency (chronic) (peripheral) 05/11/2018 JANIF, MOHAMMED I S Z7901 prison (current) use of anticoagulants 05/11/2018 Luz SEGOVIA, Abby Other I48.91 I48.91 - Unspecified atrial fibrillation 05/27/2018 F N390 Urina ry tract infection, site not specified 06/08/2018 Phong Sumner, Manuel Bobby Other C61 C61 - Malignant neoplasm of prostate 06/14/2018 RUBLOWELLALEDiamante HOMAR F L20.9 Atopic dermatitis, unspecified 06/14/2018 RUBENTHALER, HOMAR F W01.0 XXA Fall on same level from slipping, tripping and stumbling without subsequent striking against object, initial encounter 06/14/2018 RUBENTHALER, HOMAR F S80.0 1XA Contusion of right knee, initial encounter 06/14/2018 RUBENTHALER HOMAR F S80.0 2XA Contusion of left [...] F R60.0 Localized edema 09/09/2018 Kalyani Rush 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, Recurrent, Severe With Psychotic Symptoms 09/09/2018 Arianna Arzola 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, Recurrent, Severe With Psychotic Symptoms 09/09/2018 Óscar Bermudez 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, Recurrent, Severe With Psychotic Symptoms 09/10/2018 Kalyani Rush 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, Recurrent, Severe With Psychotic Symptoms 09/14/2018 Arianna Arzola 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, Recurrent, Severe With Psychotic Symptoms 09/14/2018 Óscar Bermudez 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, Recurrent, Severe With Psychotic Symptoms 10/06/2018 RUBENTHALER YAJAIRA ELLIOTTI F E8342 Hypomagnesemia 10/06/2018 RUBENTHALER EARL HOMAR F I10 Essential (primary) hypertension 10/06/2018 RUBENTHALEDiamante ELLIOTT HOMAR F 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 10/06/2018 RUBENTHALER, HOMAR F [...] (peripheral) 12/07/2018 ABBY TOMAS I S Z7901 prison (current) use of anticoagulants 01/06/2019 Eva Rader W [id number] 5 feeling agitated 01/06/2019 EVA RADER R60.0 [...] Rush Admitting F25.9 Schizoaffective disorder, unspecified 03/24/2019 WilliamEva W [id number] 00 left against medical advice 04/27/2019 Tyree Lam [id number] 1 aggressive behavior 04/27/2019 Tyree Lam [id number] 5 delusional perception 06/13/2019 Admitting F25.8 Other schizoaffective disorders 09/06/2019 ZEN GARCIA APRN Ot F02.81 DEMENTIA IN OTH DISEASES CLASSD ELSWHR W 09/06/2019 ZEN GARCIA APRN Ot G30 .9 ALZHEIMER'S DISEASE, UNSPECIFIED 09/06/2019 ZEN GARCIA APRN Ot R41 .0 DISORIENTATION, UNSPECIFIED Procedures Code Description [place] [address] 08/04/2017 A9577 08/04/2017 80581 FECE S CULTURE AEROBIC BACT SHAHRZAD SEGOVIA, [facility] 09/09/2017 63271 STOO L CULTR AEROBIC BACT EA SHAHRZAD SEGOVIA, [facility] 09/09/2017 56492 AGEN T NOS ASSAY W/OPTIC SHAHRZAD SEGOVIA, [facility] 09/09/2017 83966 OFFI CE/OUTPATIENT VISIT, EST LEVEL 4 06/14/2018 18981 OFFI CE/OUTPATIENT VISIT, EST LEVEL 4 08/02/2018 94745 OFFI CE/OUTPATIENT VISIT, EST LEVEL 4 08/20/2018 95341 OFFI CE/OUTPATIENT VISIT, EST LEVEL 4 08/23/2018 66532 [facility] URINALYSIS NONAUTO W/O SCOPE 10/06/2018 43694 OFFI CE/OUTPATIENT VISIT, EST LEVEL 3 10/06/2018 69155 OFFI CE/OUTPATIENT VISIT, EST LEVEL 3 11/18/2018 80753 OFFI CE/OUTPATIENT VISIT, EST LEVEL 3 01/06/2019 [...] DICTED.NON BLACK:ARVRAT:PT:SER/PLAS:QN:CREATININE-BASED FORMULA (MDRD) 69.4 mL/min/1.73m2 >=60.0 BMP Standard - 02/21/19 07:40 Sodium SerPl-sCnc 140 [...] DISTRIBUTION WIDTH:ENTVOL:PT:RBC:QN:AUTOMA YOMI COUNT 50.5 fL 37.0-54.0 Complete blood count (CBC) with automate d white blood cell (WBC) differential - 09/03/19 18:40 Blood leukocytes automated count (number/volume) 6.3 10*3/uL 4.3-11.0 Blood erythrocytes automated count (number/volume) 4.01 10*6/uL 4.35-5.85 Venous blood hemoglobin measurement (mass/volume) 12.9 g/dL 13.3-17.7 Blood hematocrit (volume fraction) 38 % 40-54 Automated erythrocyte mean corpuscular volume 95 [ foz_us] 80-99 Automated erythrocyte mean corpuscular h emoglobin (mass per erythrocyte) 32 pg 25-34 Automated erythrocyte mean corpuscular h emoglobin concentration measurement (mass/volume) 34 g/dL 32-36 Automated erythrocyte distribution width ratio 14. 3 % 10.0- 14.5 Automated blood platelet count (count/volume) 299 10*3/uL 130-400 Automated blood platelet mean volume measurement 9.4 [foz_us] 7.4-10.4 Automated blood neutrophils/100 leukocytes 75 % 42-75 Automated blood lymphocytes/100 leukocytes 19 % 12-44 Blood monocytes/100 leukocytes 4 % 0-12 Automated blood eosinophils/100 leukocytes 1 % 0-10 Automated blood basophils/100 leukocytes 0 % 0-10 Blood neutrophils automated count (number/volume) 4.7 10*3 1.8-7.8 Blood lymphocytes automated count (number/volume) 1.2 10*3 1.0-4.0 Blood monocytes automated count (number/volume) 0. 3 10*3 0.0-1.0 Automated eosinophil count 0.1 10*3/uL 0 .0-0.3 Automated blood basophil count (count/volume) 0.0 10*3/uL 0.0-0.1 Whole blood basic metabolic panel - 08/06 18:40 Serum or plasma sodium measurement (moles/volume) 135 mmol/L 135-145 Serum or plasma potassium measurement (moles/volume) 3.7 mmol/L 3.6-5.0 Serum or plasma chloride measurement (moles/volume) 104 mmol/L 98-107 Carbon dioxide 17 mmol/L 21-32 Serum or plasma anion gap determination (moles/volume) 14 mmol/L 5-14 Serum or plasma urea nitrogen measurement (mass/volume ) 19 mg/dL 7-18 Serum or plasma creatinine measurement (mass/volume) 1.28 mg/dL 0.60-1.30 Serum or plasma urea nitrogen/creatinine mass ratio 15 NRG Serum or plasma creatinine measurement w ith calculation of estimated glomerular filtration rate 56 NRG Serum or plasma glucose measurement (mass/volume) 174 mg/dL 70-105 Serum or plasma calcium measurement (mass/volume) 9.2 mg/dL 8.5-10.1 Complete urinalysis with reflex to cultu re - 09/03/19 18:55 Urine color determination YELLOW NRG Urine clarity determination CLEAR NR G Urine pH measurement by test strip 5.5 5-9 Specific gravity of urine by test strip 1.020 1.016-1.022 Urine protein assay by test strip, semi-quantitative NEGATIVE NEGATIVE Urine glucose detection by automated test strip NE GATIVE NEGATIVE Erythrocytes detection in urine sediment by light micr oscopy NEGATIVE NEGATIVE Urine ketones detection by automated test strip NE GATIVE NEGATIVE Urine nitrite detection by test strip NEGATIVE NEGATIVE Urine total bilirubin detection by test strip NEGA TIVE NEGATIVE Urine urobilinogen measurement by automated test strip (mass/volume) 0.2 mg/dL < = 1.0 Urine leukocyte esterase detection by dipstick NEG ATIVE NEGATIVE Automated urine sediment erythrocyte cou nt by microscopy (number/high power field) NONE NRG Automated urine sediment leukocyte count by microscopy (number/high power field) NONE NRG Bacteria detection in urine sediment by light microsco py NEGATIVE NRG Squamous epithelial cells detection in u rine sediment by light microscopy 0-2 NRG Crystals detection in urine sediment by light microsco py PRESENT NRG Casts detection in urine sediment by light microscopy NONE NRG Mucus detection in urine sediment by light microscopy NEGATIVE NRG Complete urinalysis with reflex to culture NO NRG Amorphous sediment detection in urine sediment by ligh t microscopy RARE GIOVANNI URATES NRG Encounters ACCT No. Visit Date/Time Discharge Status Pt. Type Provider Facility Loc./Unit Complaint [id number] 12/02/2018 09:05:10 12/02/2018 23:59: 59 CLS Outpatient ABBY TOMAS I [id number] 05/11/2018 09:21:00 05/11/2018 09:21: 00 DIS Outpatient ABBY TOMAS I [id number] 10/06/2017 14:29:00 10/06/2017 14:29: 00 DIS Outpatient ABBY TOMAS I [id number] 07/30/2017 09:57:00 07/30/2017 09:57: 00 DIS Outpatient ABBY TOMAS I [id number] 04/30/2017 09:52:00 04/30/2017 23:59: 59 CLS Outpatient Kiran GUO, [id number] 03/19/2017 10:46:00 03/19/2017 23:59: 59 CLS Outpatient Kiran GUO, [id number] 09/03/2019 18:37:00 020 19:56:00 DIS Outpatient ZEN GARCIA APRN [facility] ER [facility] [id number] 07/21/2019 15:14:48 Document Registration [id number] 06/16/2019 11:30:58 Document Registration [id number] 04/08/2016 15:18:31 04/08/2016 23:59:5 9 CLS Outpatient [id number] 06/13/2019 11:25:00 Document Registration [id number] 05/30/2019 01:37:00 Document Registration [id number] 05/23/2019 08:15:00 Document Registration [id number] 05/05/2019 23:05:19 Document Registration [id number] 03/20/2019 08:56:01 Document Registration [id number] 02/17/2019 14:45:29 [place] [facility] [id number] 09/09/2018 08:00:00 09/09/2018 23:5 9:00 DIS Outpatient Óscar Bermudez [facility] OP OSF [id number] 08/25/2018 07:00:00 09/09/2018 23:5 9:00 DIS Outpatient Arianna Arzola [facility] RHC pro fee [id number] 08/25/2018 12:40:00 09/09/2018 13:2 0:00 DIS Inpatient Kalyani Rush [facility] DANYEL resistive with cares, push s taff away, believes some guys are going to shoot him, increase delusions [id number] 05/29/2019 14:14:00 20:40:00 DIS Emergency Tyree Lam 2 [id number] 05/04/2019 15:32:00 23:59:00 DIS Outpatient 24 [id number] 04/27/2019 13:57:00 23:59:00 DIS Outpatient Eva Rader 24 [id number] 04/16/2019 12:06:00 18:07:00 DIS Emergency Eva Rader 2 [id number] 03/24/2019 08:22:00 23:59:00 DIS Outpatient Eva Rader 24 [id number] 02/12/2019 10:12:00 12:40:00 DIS Emergency Eva Rader 2 [id number] 12/07/2018 11:08:00 23:59:00 DIS Outpatient MANUEL DARLING 24 [id number] 12/07/2018 11:07:00 12:21:00 DIS Outpatient MANUEL DARLING 71 [id number] 10/06/2018 16:09:00 23:59:00 DIS Outpatient YAJAIRA RODRIGUES I 24 [id number] 09/23/2018 08:19:00 15:16:22 DIS Outpatient YAJAIRA RODRIGUES I 24 [id number] 09/15/2018 14:06:00 019 23:59:00 DIS Outpatient MARSHA ELLIOTT, YAJAIRA I 24 [id number] 08/23/2018 15:20:00 019 23:59:00 DIS Outpatient MARSHA ELLIOTT, YAJAIRA I 24 [id number] 08/20/2018 11:31:00 019 23:59:00 DIS Outpatient MARSHA ELIZABETHRAVINFany, YAJAIRA I 24 [id number] 08/04/2018 09:08:00 23:59:00 DIS Outpatient MARIIAR RADHAFany, YAJAIRA I 24 [id number] 08/02/2018 14:56:00 23:59:00 DIS Outpatient MARSHA ELIZABETHRAVINFany, YAJAIRA I 24 [id number] 07/22/2018 08:40:00 23:59:00 DIS Outpatient MARSHA GARCIAFany, YAJAIRA I 24 [id number] 06/22/2018 11:03:00 23:59:00 DIS Outpatient MARIIAR RADHAFany, YAJAIRA I 24 [id number] 06/08/2018 12:41:00 06/09/19 19 13:28:00 DIS Outpatient PHONG MANUEL R 71 [id number] 05/27/2018 18:41:00 05/27/19 19 23:59:00 DIS Outpatient 24 [id number] 05/27/2018 07:49:00 05/27/19 19 23:59:00 DIS Outpatient MARIIAR FARRUKHFRIDAFany, YAJAIRA I 24 [id number] 04/22/2018 08:56:00 04/22/19 19 23:59:00 DIS Outpatient ALVAREZDONNAR EARL YAJAIRA I 24 [id number] 03/25/2018 08:00:00 03/25/20 18 23:59:00 DIS Outpatient ALVAREZDONNADiamante ELLIOTT YAJAIRA I 24 [id number] 03/19/2018 14:15:00 03/19/20 18 23:59:00 DIS Outpatient 24 [id number] 07/11/2015 06:07:29 07/11/2015 06:0 7:29 DIS Outpatient [id number] 08/18/2018 10:52:00 11:32:00 DIS Outpatient Lamar SEGOVIA, Bed P HMG.NEPH CHROKIDDIS [id number] 08/17/2018 23:59:00 23:59:59 CLS Outpatient Lamar SEGOVIA, Bed P HMG.NEPH [id number] 07/28/2018 23:59:00 23:59:59 CLS Outpatient Phong Sumner, Manuel Bobby HMG.URO [id number] 06/08/2018 06:22:00 14:26:00 DIS Outpatient Phong Sumner, [facility] HMG.URO.GO 6mo/prostate cancer follow u p [id number] 05/11/2018 09:39:00 09:45:00 DIS Outpatient Luz SEGOVIA, [facility] HMG.CAR.CO 6 mo f/u no prior testing [id number] 10/22/2017 09:53:00 23:59:59 CLS [facility] [id number] 10/06/2017 14:42:00 15:00:00 DIS Outpatient Luz SEGOVIA, [facility] HMG.CAR.CO Afib/HFU - per Dr. Mcgrath [id number] 10/06/2017 08:50:00 12:50:00 DIS Outpatient Phong Sumner, [facility] HMG.URO.GO PROSTATECA [id number] 08/18/2017 13:49:00 23:59:59 CLS Outpatient Lamar SEGOVIA, Bed P [facility] L.NEPH.P [id number] 08/18/2017 11:11:00 11:57:00 DIS Outpatient Lamar SEGOVIA, [facility] HMG.NEPH CHROKIDDIS [id number] 08/04/2017 09:49:00 018 09:50:00 [facility] SLURRED SPEECH, R/O STRO KE [id number] 07/30/2017 10:04:00 018 10:00:00 DIS Outpatient Luz SEGOVIA, [facility].CAR.CO AFIB [id number] 04/30/2017 10:00:00 018 23:59:59 CLS Outpatient Sari SEGOVIA, [facility].[place] FOLLOW UP POST ER [id number] 03/19/2017 11:00:00 017 23:59:59 CLS Outpatient Sari SEGOVIA, [facility].[place] 1 YR F/U NO TESTING PRIOR [id number] 07/17/2016 17:14:00 017 00:01:00 DIS Outpatient Aaron Ramos, [facility] RADONC [id number] 12/09/2016 14:47:00 017 23:59:59 CLS Outpatient Lamar SEGOVIA, [facility] L.NEPH.P 1 YR/F/U FOR CKD [id number] 12/09/2016 13:20:00 017 23:59:59 CLS Outpatient Lamar SEGOVIA, [facility] HMG.NEPH 1 YR/F/U FOR CKD [id number] 10/15/2016 07:45:00 017 23:59:59 CLS Outpatient Phong Sumner, [facility] HMG.WKUAGO 2 MTHS/RETENTION [id number] 08/05/2016 07:30:00 017 23:59:59 CLS Outpatient Phong Sumner, [facility] HMG.WKUAGO 6 MTHS/CAP [id number] 12/14/2015 08:26:00 00:01:00 DIS Outpatient Aaron Ramos, [facility] [id number] 02/14/2016 11:00:00 23:59:59 CLS Outpatient Robina SEGOVIA, [facility] HMG.C.CO 1 YR F/U ECHO PRIOR [id number] 02/05/2016 07:15:00 23:59:59 CLS Outpatient Phong Sumner, [facility] HMG.WKUAGO [id number] 12/12/2015 15:17:00 23:59:59 CLS Outpatient Lamar SEGOVIA, [facility] L.NEPH.P 9MO F/U FOR CKD [id number] 12/12/2015 14:00:00 23:59:59 CLS Outpatient Lamar SEGOVIA, [facility] HMG.NEPH [id number] 08/15/2015 11:00:00 23:59:59 CLS Outpatient Phong Sumner, [facility] HMG.WKUAGO [id number] 06/11/2015 12:13:00 23:59:59 CLS Outpatient Lamar SEGOVIA, [facility] L.NEPH.P [id number] 05/25/2015 12:42:00 23:59:00 DIS Outpatient Aaron Ramos [facility] IMG.CT [id number] 05/23/2015 09:59:00 23:59:00 DIS Outpatient Aaron Ramos [facility] IMG.CT [id number] 05/02/2015 10:00:00 10:00:00 CAN Preadmit Aaron Ramos [facility] IMG.CT [id number] 03/08/2015 14:33:00 23:59:59 CLS Outpatient Greg Orona [facility] DEBBY [id number] 10/16/2014 16:55:00 015 23:59:59 CLS Outpatient Lamar SEGOVIA, [facility] L.NEPH.P [id number] 01/16/2014 14:59:00 23:59:59 CLS Outpatient Lamar SEGOVIA, [facility] L.NEPH.P [id number] 07/11/2013 15:05:00 014 23:59:59 CLS Outpatient Lamar SEGOVIA, [facility] L.NEPH.P [id number] 12/20/2012 14:53:00 23:59:59 CLS Outpatient Lamar SEGOVIA, [facility] L.NEPH.P [id number] 06/23/2012 14:46:00 23:59:59 CLS Outpatient Lamar SEGOVIA, [facility] L.NEPH.P [id number] 03/18/2012 14:44:00 23:59:59 CLS Outpatient Thierry SEGOVIA [facility], [facility] DEBBY [id number] 10/17/2011 12:00:00 23:59:59 CLS Outpatient Lamar SEGOVIA, [facility] L.NEPH.P [id number] 02/17/2019 11:00:00 Document Registration [id number] 10/29/2017 13:45:00 Document Registration [id number] 10/02/2017 14:14:00 Document Registration [id number] 08/20/2017 14:58:00 Document Registration [id number] 08/18/2017 11:11:00 Document Registration [id number] 07/28/2017 14:47:00 Document Registration [id number] 07/24/2017 08:31:00 Document Registration [id number] 07/23/2017 15:24:00 Document Registration [id number] 08/06/2018 10:16:00 Document Registration [id number] 09/10/2017 09:57:00 09/10/2017 09:57 :00 DIS Outpatient SHAHRZAD SEGOVIA, [id number] 01/06/2019 16:15:00 01/06/2019 23:59: 59 CLS Outpatient EVA RADER [facility] [id number] 11/18/2018 15:14:00 11/18/2018 23:59: 59 [id number] 10/06/2018 15:36:00 10/06/2018 23:59: 59 [facility] [id number] 08/23/2018 14:46:00 08/23/2018 23:59: 59 CLS Outpatient [facility] [id number] 08/20/2018 10:53:00 08/20/2018 23:59: 59 CLS Outpatient [facility] [id number] 08/02/2018 14:35:00 08/02/2018 23:59: 59 CLS Outpatient [facility] [id number] 06/14/2018 10:02:00 06/14/2018 23:59: 59 CLS Outpatient [facility] [id number] 06/06/2019 20:21:00 Document Registration [id number] 06/04/2019 09:11:00 Document Registration [id number] 04/17/2019 03:22:00 Document Registration [id number] 11/15/2018 17:32:00 Document Registration [id number] 11/08/2018 07:27:00 Document Registration
--- NOTE | 2019-09-18 10:37 | ED Fall/Injury ---
General Chief Complaint: Trauma-Non Activation Stated Complaint: FALL Nursing Triage Note: TO ED PER EMS FROM [facility] WAS PUTTING CLOCK ON WALL LOST BALANCE AND HIT HIS HEAD ON WALL NO LOC WAS WITINESSED. HEMATOMA TO BACK OF HEAD. Exam Limitations: no limitations History of Present Illness Date Seen by Provider: Sep 18, 2019 Time Seen by Provider: 10:40 Initial Comments fell at [facility] with c/o fall. arrives in rigid c collar. Occurred: just prior to arrival Severity: moderate Injuries/Pain Location: head Context: unknown Loss of Consciousness: no loss of consciousness Associated Symptoms (Fall): Denies Symptoms Allergies and Home Medications Allergies Coded Allergies: No Known Drug Allergies (Unverified , 09/03/19) Patient Home Medication List Home Medication List Reviewed: Yes Review of Systems Review of Systems Constitutional: see HPI Eyes: No Symptoms Reported Ears, Nose, Mouth, Throat: no symptoms reported Respiratory: no symptoms reported Cardiovascular: no symptoms reported Genitourinary: no symptoms reported Musculoskeletal: see HPI Skin: no symptoms reported Psychiatric/Neurological: No Symptoms Reported Past Kncetpb-Jivchp-Kqbybi Hx Patient Social History Alcohol Use: Denies Use Recreational Drug Use: No Smoking Status: Never a Smoker Recent Foreign Travel: No Contact w/Someone Who Travel: No Recent Infectious Disease Expo: No Past Medical History Surgeries: No Respiratory: No Cardiac: Yes High Cholesterol, Hypertension Neurological: Yes Dementia Genitourinary: No Gastrointestinal: Yes Musculoskeletal: No Endocrine: Yes Diabetes, Non-Insulin dep HEENT: No Cancer: No Psychosocial: Yes Schizophrenia Integumentary: No Physical Exam Vital Signs Vital Signs - First Documented 09/18/19 09:55 Temp 35.7 Pulse 99 Resp 18 B/P (MAP) 120/73 (89) Capillary Refill : Less Than 3 Seconds Height, Weight, BMI Height: '" Weight: lbs. oz. kg; 34.00 BMI Method: General Appearance: WD/WN, no apparent distress HEENT: PERRL/EOMI, normal ENT inspection Neck: non-tender, full range of motion Respiratory: no respiratory distress, no accessory muscle use Extremities: normal range of motion, non-tender Neurologic/Psychiatric: alert, normal mood/affect, oriented x 3 Skin: normal color, warm/dry Lucas Coma Score Best Eye Response: (4) Open Spontaneously Best Verbal Response: (4) Confused Conversation Best Motor Response: (6) Obeys Commands Lucas Total: 14 Progress/Results/Core Measures Results/Orders Vital Signs/I&O 09/18/19 09:55 Temp 35.7 Pulse 99 Resp 18 B/P (MAP) 120/73 (89) Blood Pressure Mean: 89 Departure Impression Primary Impression: Fall at jail Qualified Codes: W19.XXXA - Unspecified fall, initial encounter; Y92.129 - Unspecified place in jail as the place of occurrence of the external cause Disposition: 01 HOME, SELF-CARE Condition: Stable Departure-Patient Inst. Decision time for Depature: 10:37 Referrals: ISRAEL HELMS MD (PCP/Family) Primary Care Physician Patient Instructions: Preventing Falls ZEN GARCIA PHOTOGRAPHIC COLORIST Sep 18, 2019 10:37
--- NOTE | 2019-09-18 10:41 | NUR ---
JAIL CALLED TO COME GET PATIENT.
[2019-09-18 11:14] VITALS: BP 120/73
== END 2019-09-18 11:14 | disposition home or self-care (01) ==
LOC: EDUNIT# 09:46 → ER 09:47
DX: S00.83XA Contusion of other part of head, initial encounter (principal); R40.2142 Coma scale, eyes open, spontaneous, at arrival to emergency department; R40.2242 Coma scale, best verbal response, confused conversation, at arrival to emergency department; R40.2362 Coma scale, best motor response, obeys commands, at arrival to emergency department; W19.XXXA Unspecified fall, initial encounter; W22.8XXA Striking against or struck by other objects, initial encounter; Y92.129 Unspecified place in nursing home as the place of occurrence of the external cause
CPT/HCPCS: 70450; 72125

== ENCOUNTER 2019-11-20 15:09 | Emergency (ER) | payer MEDICARE, MEDICAID ==
[~2019-11-20] VITALS: Ht 184.4 cm; Wt 90.9 kg
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
--- NOTE | 2019-11-20 15:57 | ED GI ---
General Chief Complaint: Abdominal/GI Problems Stated Complaint: AMS, DIARRHEA Source of Information: Patient Exam Limitations: No Limitations History of Present Illness Date Seen by Provider: Nov 20, 2019 Time Seen by Provider: 15:55 Initial Comments To ER with reports of nonbloody watery diarrhea for one month. He is from [facility], extensive psychiatric history. He's been having about 10 episodes of diarrhea per day, he's been started on Bentyl, Imodium, Questran without improvement. In fact over the past 2-3 days she's had nearly 20 episodes per day according nursing staff. Timing/Duration: 2-3 Days Severity/Quality: Moderate Location: Generalized Abdomen Radiation: No Radiation Activities at Onset: None Allergies and Home Medications Allergies Coded Allergies: No Known Drug Allergies (Unverified , 09/03/19) Patient Home Medication List Home Medication List Reviewed: Yes Review of Systems Review of Systems Constitutional: see HPI, other (unable to obtain) Past Ufvwgpk-Yngqdv-Dduqqx Hx Past Medical History Surgeries: No Respiratory: No Cardiac: Yes High Cholesterol, Hypertension Neurological: Yes Dementia Genitourinary: No Gastrointestinal: Yes Musculoskeletal: No Endocrine: Yes Diabetes, Non-Insulin dep HEENT: No Cancer: No Psychosocial: Yes Schizophrenia Integumentary: No Physical Exam Vital Signs Vital Signs - First Documented 11/20/19 15:32 Temp 36.4 Pulse 100 Resp 18 B/P (MAP) 114/72 (86) Pulse Ox 100 Capillary Refill : Height/Weight/BMI Height: '" Weight: lbs. oz. kg; 34.00 BMI Method: General Appearance: WD/WN, no apparent distress, other (alert, eyes open, mumbles incoherently.) Respiratory: no respiratory distress, no accessory muscle use Cardiovascular: regular rate, rhythm, no JVD Gastrointestinal: normal bowel sounds, soft, distended, tenderness (palpable area of firmness along the lateral aspect of the left abdomen, could be stool in the descending colon) Extremities: normal range of motion, non-tender Neurologic/Psychiatric: alert, normal mood/affect, oriented x 3 Skin: normal color, warm/dry Progress/Results/Core Measures Results/Orders Lab Results Laboratory Tests Test 11/20/19 15:50 Range/Units White Blood Count 14.0 H 4.3-11.0 10^3/uL Red Blood Count 4.32 L 4.35-5.85 10^6/uL Hemoglobin 13.7 13.3-17.7 G/DL Hematocrit 39 L 40-54 % Mean Corpuscular Volume 91 80-99 FL Mean Corpuscular Hemoglobin 32 25-34 PG Mean Corpuscular Hemoglobin Concent 35 32-36 G/DL Red Cell Distribution Width 14.4 10.0-14.5 % Platelet Count 467 H 130-400 10^3/uL Mean Platelet Volume 9.1 7.4-10.4 FL Neutrophils (%) (Auto) 84 H 42-75 % Lymphocytes (%) (Auto) 6 L 12-44 % Monocytes (%) (Auto) 10 0-12 % Eosinophils (%) (Auto) 0 0-10 % Basophils (%) (Auto) 0 0-10 % Neutrophils # (Auto) 11.7 H 1.8-7.8 X 10^3 Lymphocytes # (Auto) 0.9 L 1.0-4.0 X 10^3 Monocytes # (Auto) 1.4 H 0.0-1.0 X 10^3 Eosinophils # (Auto) 0.0 0.0-0.3 10^3/uL Basophils # (Auto) 0.0 0.0-0.1 10^3/uL Neutrophils % (Manual) 69 % Lymphocytes % (Manual) 9 % Monocytes % (Manual) 9 % Band Neutrophils 13 % Spherocytes SLIGHT Erythrocyte Sedimentation Rate 2 0-30 MM/HR Sodium Level 132 L 135-145 MMOL/L Potassium Level 4.7 3.6-5.0 MMOL/L Chloride Level 110 H 98-107 MMOL/L Carbon Dioxide Level 11 L 21-32 MMOL/L Anion Gap 11 5-14 MMOL/L Blood Urea Nitrogen 21 H 7-18 MG/DL Creatinine 1.14 0.60-1.30 MG/DL Estimat Glomerular Filtration Rate > 60 BUN/Creatinine Ratio 18 Glucose Level 123 H 70-105 MG/DL Calcium Level 8.7 8.5-10.1 MG/DL Corrected Calcium 9.0 8.5-10.1 MG/DL Total Bilirubin 0.4 0.1-1.0 MG/DL Aspartate Amino Transf (AST/SGOT) 116 H 5-34 U/L Alanine Aminotransferase (ALT/SGPT) 38 0-55 U/L Alkaline Phosphatase 86 40-136 U/L C-Reactive Protein High Sensitivity 3.40 H 0.00-0.50 MG/DL Total Protein 6.5 6.4-8.2 GM/DL Albumin 3.6 3.2-4.5 GM/DL My Orders Orders - ZEN GARCIA TRANSFER MACHINE OPERATOR Cbc With Automated Diff (11/20/19 15:53) Comprehensive Metabolic Panel (11/20/19 15:53) Hs C Reactive Protein (11/20/19 15:53) Erythrocyte Sedimentation Rate (11/20/19 15:53) Ed Iv/Invasive Line Start (11/20/19 15:53) Stool Culture (11/20/19 15:53) C Difficile Ag + Toxin A/B. (11/20/19 15:53) Ct Abdomen/Pelvis W (11/20/19 15:53) Lactated Ringers (Lr 1000 Ml Iv Solution (11/20/19 16:00) Manual Differential (11/20/19 15:50) Iohexol Injection (Omnipaque 350 Mg/Ml 1 (11/20/19 17:30) Received Contrast (Hold Metformin- Contr (11/20/19 17:30) Sodium Chloride Flush (Catheter Flush Sy (11/20/19 17:30) Ns (Ivpb) (Sodium Chloride 0.9% Ivpb Bag (11/20/19 17:30) Diatrizoate Meglum/Sodium 37% (Gastrogra (11/20/19 17:30) Diphenoxylate/Atropine Tablet (Lomotil T (11/20/19 17:30) Magnesium Citrate Oral Soln (Citrate Of (11/20/19 18:15) Medications Given in ED Current Medications Medications Dose Ordered Sig/Alanna Route Start Time Stop Time Status Last Admin Dose Admin Diatrizoate Meglum/ Diatrizoate Sod 120 ml ONCE ONCE PO 11/20/19 17:30 11/20/19 17:31 DC 11/20/19 17:52 50 ML Diphenoxylate HCl/ Atropine 1 ea ONCE PRN PO 11/20/19 17:30 11/20/19 17:57 1 EA Iohexol 100 ml ONCE ONCE IV 11/20/19 17:30 11/20/19 17:31 DC 11/20/19 17:51 100 ML Sodium Chloride 10 ml NEEDED PRN IV 11/20/19 17:30 11/20/19 17:52 10 ML Sodium Chloride 100 ml ONCE ONCE IV 11/20/19 17:30 11/20/19 17:31 DC 11/20/19 17:52 80 ML Vital Signs/I&O 11/20/19 15:32 Temp 36.4 Pulse 100 Resp 18 B/P (MAP) 114/72 (86) Pulse Ox 100 Departure Impression Primary Impression: Constipation Disposition: HOME, SELF-CARE Condition: Stable Departure-Patient Inst. Decision time for Depature: 18:11 Referrals: ISRAEL HELMS MD (PCP/Family) Primary Care Physician Patient Instructions: Constipation, Adult (DC) Add. Discharge Instructions: 1. Return to ER for any concerns 2. Discontinue the dicyclomine (Bentyl) and the Imodium. Use a soapsuds enema twice daily for 2 days. All discharge instructions reviewed with patient and/or family. Voiced understanding. ZEN GARCIA TRANSFER MACHINE OPERATOR Nov 20, 2019 15:57
[2019-11-20] MEDS ORDERED: LACTATED RINGERS 1,000 ML IV SCH (16:00)
[2019-11-20 16:03] LABS: BASOPHILS % (AUTO) 0 % (0-10); EOSINOPHILS % (AUTO) 0 % (0-10); HEMATOCRIT 39 % (40-54); HEMOGLOBIN 13.7 G/DL (13.3-17.7); LYMPHOCYTES # (AUTO) 0.9 X 10^3 (1.0-4.0); LYMPHOCYTES % (AUTO) 6 % (12-44); MEAN CORPUSCULAR HEMOGLOBIN 32 PG (25-34); MEAN CORPUSCULAR HGB CONC 35 G/DL (32-36); MEAN CORPUSCULAR VOLUME 91 FL (80-99); MEAN PLATELET VOLUME 9.1 FL (7.4-10.4); MONOCYTES # (AUTO) 1.4 X 10^3 (0.0-1.0); MONOCYTES % (AUTO) 10 % (0-12); NEUTROPHILS # (AUTO) 11.7 X 10^3 (1.8-7.8); NEUTROPHILS % (AUTO) 84 % (42-75); PLATELET COUNT 467 10^3/uL (130-400); RED CELL DISTRIBUTION WIDTH 14.4 % (10.0-14.5)
[2019-11-20 16:14] LABS: ALBUMIN 3.6 GM/DL (3.2-4.5); CHLORIDE 110 MMOL/L (98-107); POTASSIUM 4.7 MMOL/L (3.6-5.0); SODIUM 132 MMOL/L (135-145)
[2019-11-20 16:15] LABS: CALCIUM 8.7 MG/DL (8.5-10.1)
[2019-11-20 16:16] LABS: GLUCOSE 123 MG/DL (70-105)
[2019-11-20 16:17] LABS: TOTAL PROTEIN 6.5 GM/DL (6.4-8.2)
[2019-11-20 16:18] LABS: BILIRUBIN,TOTAL 0.4 MG/DL (0.1-1.0); CARBON DIOXIDE 11 MMOL/L (21-32)
[2019-11-20 16:20] LABS: ALKALINE PHOSPHATASE 86 U/L (40-136); CREATININE SERUM 1.14 MG/DL (0.60-1.30); GFR ESTIMATED > 60
[2019-11-20 16:21] LABS: BUN/CREATININE RATIO 18
[2019-11-20 16:23] LABS: ALANINE AMINOTRANSFERASE 38 U/L (0-55)
[2019-11-20 16:24] LABS: BAND NEUTROPHILS 13 %; NEUTROPHILS % (MANUAL) 69 %
--- NOTE | 2019-11-20 16:24 | NUR ---
ORAL CONTRAST GIVEN TO DRINK.
[2019-11-20 16:25] LABS: ERYTHROCYTE SEDIMENTATION RATE 2 MM/HR (0-30); LYMPHOCYTES % (MANUAL) 9 %; MONOCYTES % (MANUAL) 9 %; SPHEROCYTES SLIGHT
--- NOTE | 2019-11-20 16:28 | NUR ---
PATIENT DRANK ALL OF CONTRAST CT NOTIFIED
[2019-11-20] MEDS ORDERED: IOHEXOL 350 MG/ML 100 ML (OMNIPAQUE 350) VIAL IV ONE (17:30)
[2019-11-20] MEDS ORDERED: CATHETER FLUSH 10 ML SYR IV PRN (17:30)
[2019-11-20] MEDS ORDERED: NS 100 ML (IVPB) BAG IV ONE (17:30)
[2019-11-20] MEDS ORDERED: DIPHENOXYLATE/ATROPINE 2.5MG/0.025MG (LOMOTIL) TAB PO PRN (17:30)
[2019-11-20] MEDS ORDERED: DIATRIZOATE MEGLUM/SODIUM 37% 120 ML (GASTROGRAFIN) PO ONE (17:30)
[2019-11-20] MEDS ORDERED: HOLD METFORMIN - RECEIVED CONTRAST 20 ML VIAL IV SCH (17:30)
--- NOTE | 2019-11-20 17:34 | NUR ---
TO CT PER CART
--- NOTE | 2019-11-20 18:03 | Diagnostic Imaging Report ---
TECHNIQUE: CT of the abdomen and pelvis. All CT scans use one or more of the following dose optimizing techniques: automated exposure control, MA and/or KvP adjustment based on patient size and exam type or iterative reconstruction. INDICATION: Increased diarrhea, poor appetite, patient is a poor historian. COMPARISON STUDIES: There is no pertinent image. FINDINGS: Increased stool is present in the rectum with dilatation of the colon above this. There is a fairly large amount of stool throughout the colon. Stomach is moderately distended with contrast. Contrast is present in the small bowel without significant distention of the small bowel. Lung bases are clear. Gallbladder is absent. The liver spleen pancreas adrenal glands and kidneys are normal. There is no ascites or free air. Urinary bladder and prostate gland appear normal. Fat-containing inguinal hernias are present, without inflammation. Large lipoma seen in the left gluteal region. Degenerative changes are present in the spine. These are fairly mild. No osseous lesions are present. IMPRESSION: 1. There is fecal impaction with a large amount of stool throughout the colon. 2. Large lipoma is present in the left gluteal region. Dictated by: Dictated on workstation # [id number]
[2019-11-20] MEDS ORDERED: MAGNESIUM CITRATE 300 ML BTL PO ONE (18:15)
--- NOTE | 2019-11-20 18:17 | NUR ---
[facility] CALLED TO COME PICK PATIENT UP
[2019-11-20 18:52] VITALS: BP 108/78
== END 2019-11-20 18:50 | disposition home or self-care (01) ==
LOC: EDUNIT# 15:09 → ER 15:10
DX: K59.00 Constipation, unspecified (principal)
CPT/HCPCS: 36415; 74177; 80053; 85007; 85027; 85652; 86141

== ENCOUNTER 2019-11-22 20:18 | Inpatient (IN) | payer MEDICARE, MEDICAID ==
[~2019-11-22] VITALS: Ht 177.8 cm; Wt 98.5 kg
[2019-11-22] MEDS ORDERED: LACTATED RINGERS 1,000 ML IV ONE (20:38)
[2019-11-22 20:44] LABS: BASOPHILS % (AUTO) 0 % (0-10); EOSINOPHILS % (AUTO) 0 % (0-10); HEMATOCRIT 36 % (40-54); HEMOGLOBIN 12.5 G/DL (13.3-17.7); LYMPHOCYTES % (AUTO) 9 % (12-44); MEAN CORPUSCULAR HEMOGLOBIN 31 PG (25-34); MEAN CORPUSCULAR HGB CONC 35 G/DL (32-36); MEAN CORPUSCULAR VOLUME 90 FL (80-99); MEAN PLATELET VOLUME 8.6 FL (7.4-10.4); MONOCYTES # (AUTO) 1.2 X 10^3 (0.0-1.0); MONOCYTES % (AUTO) 11 % (0-12); NEUTROPHILS # (AUTO) 8.8 X 10^3 (1.8-7.8); NEUTROPHILS % (AUTO) 80 % (42-75); PLATELET COUNT 445 10^3/uL (130-400); RED CELL DISTRIBUTION WIDTH 13.8 % (10.0-14.5); WHITE BLOOD COUNT 11.1 10^3/uL (4.3-11.0)
--- NOTE | 2019-11-22 21:02 | Diagnostic Imaging Report ---
PROCEDURE: CT abdomen and pelvis without contrast. TECHNIQUE: Multiple contiguous axial images were obtained through the abdomen and pelvis without the use of intravenous contrast. Auto Exposure Controls were utilized during the CT exam to meet ALARA standards for radiation dose reduction. INDICATION: Abdominal distention, no recent bowel movement. COMPARISON STUDY: CT scan of the abdomen and pelvis from 2 days ago. FINDINGS: The patient has developed a small right pleural effusion. Calcification of the coronary arteries is again identified. There is some thickening of the distal esophagus. The gallbladder is absent. The liver, spleen, pancreas, adrenal glands, and kidneys appear unremarkable. Urinary bladder is unremarkable. A large amount stool is present in the colon. This has increased from the previous exam. The colon measures up to 9.8 cm. Small bowel loops are slightly prominent and fluid-filled. The stomach is mildly distended. No ascites, free air or loculated fluid collections are present. IMPRESSION: 1. There is marked constipation which has worsened from the previous exam. Small bowel loops are mildly dilated. 2. Interval development of a right pleural effusion and trace left pleural effusion. Tiny pericardial effusion is again identified. 3. There is thickening of the distal esophagus, possible esophagitis. 4. A lipoma is seen in the left gluteal region. Dictated by: Dictated on workstation # [id number]
[2019-11-22 21:04] LABS: ALANINE AMINOTRANSFERASE 39 U/L (0-55); ALBUMIN 3.2 GM/DL (3.2-4.5); ALKALINE PHOSPHATASE 68 U/L (40-136); AMYLASE 14 U/L (25-125); BILIRUBIN,TOTAL 0.6 MG/DL (0.1-1.0); BUN/CREATININE RATIO 22; CALCIUM 8.2 MG/DL (8.5-10.1); CARBON DIOXIDE 17 MMOL/L (21-32); CHLORIDE 104 MMOL/L (98-107); CREATININE SERUM 0.86 MG/DL (0.60-1.30); GFR ESTIMATED > 60; GLUCOSE 97 MG/DL (70-105); LIPASE 4 U/L (8-78); MAGNESIUM 1.8 MG/DL (1.6-2.4); SODIUM 130 MMOL/L (135-145); TOTAL PROTEIN 5.5 GM/DL (6.4-8.2)
[2019-11-22 21:08] LABS: INR 1.4 (0.8-1.4); PROTHROMBIN TIME PATIENT 17.7 SEC (12.2-14.7)
--- NOTE | 2019-11-22 21:09 | ED GI ---
General Chief Complaint: Abdominal/GI Problems Stated Complaint: CONSTIPATION Nursing Triage Note: Pt presents to room #7 via [facility] ems cart from [facility] with c/o abd distension et lethragy. Ems advise pt was seen in this ER on 11/20/19 d/t constipation. Ems advise at approx 1730 on this day facility staff report pt began to experience abd distension. Hypoactive bowel sounds with round, soft abd noted. Pt unable to answer questions or follow simple commands. Alert to self with hx dementia. Sepsis Screen: No Definite Risk Source of Information: [facility] Records, Old Records (ALL PMH IS FROM OLD RECORDS) Exam Limitations: Other (PT UNABLE TO GIVE ANY RELIABLE INFORMATION--HX OF DEMENTIA AND SPEECH IS MOSTLY UNINTELLIGIBLE ) History of Present Illness Date Seen by Provider: Nov 22, 2019 Time Seen by Provider: 20:20 Initial Comments PT ARRIVES VIA EMS [facility] C/O ABDOMINAL DISTENTION AND APPARENT ABDOMINAL PAIN , AND PT WILL NOT SIT UP NO VOMITING NO FEVER PT SEEN HERE 11/20/19--HAD BEEN HAVING "DIARRHEA FOR A MONTH", BUT IN FACT HE WAS FOUND TO BE SEVERELY CONSTIPATED AT THAT TIME PT HAS HAD SOAP SUDS ENEMAS X 3 WITHOUT ANY IMPROVEMENT, AND STAFF NOW NOTE THAT HIS ABDOMEN IS DISTENDED NO OTHER INFORMATION IS OBTAINABLE PT WITH DEMENTIA, AND SPEECH IS MOSTLY UNINTELLIGIBLE, GUTTERAL NOISES AND CANNOT ANSWER ANY QUESTIONS OF ANY KIND OR FOLLOW ANY COMMANDS PT WAS ABLE TO SAY A FEW, CLEAR AND APPROPRIATE WORDS, SUCH "THANK YOU VERY MUCH" WHEN I PUT A MASK ON HIM--THIS IS THE ONLY INTELLIGIBLE WORDS THAT PT IS ABLE TO SAY FOR ENTIRE ER STAY PCP: DR. HELMS Allergies and Home Medications Allergies Coded Allergies: No Known Drug Allergies (Unverified , 09/03/19) Home Medications Acetaminophen 325 Mg Capsule, 650 MG PO Q4H PRN for PAIN-MILD (1-4), (Reported) Apixaban 5 Mg Tablet, 5 MG PO BID, (Reported) Atorvastatin Calcium 20 Mg Tablet, 20 MG PO HS, (Reported) Benztropine Mesylate 1 Mg Tablet, 1 MG PO BID, (Reported) Cholestyramine (with Sugar) 4 Gm Powd.pack, 12 GM PO BID, (Reported) USES 3 SCOOPS BID Diltiazem HCl 120 Mg Tablet, 240 MG PO DAILY, (Reported) TAKES 2 (120MG) TABS NOTIFY PHYSICIAN IF BP FALLS OUT OF THE FOLLOWING PARAMETERS FOR 3 CONSECUTIVE DAYS: SBP <90 OR >200 DBP <50 OR >120 PULSE <50 >120 Eluxadoline 100 Mg Tablet, 100 MG PO BID WITH MEALS, (Reported) Furosemide 40 Mg Tablet, 40 MG PO DAILY, (Reported) Haloperidol Lactate 5 Mg/1 Ml Ampul, 5 MG IJ Q8H PRN for ANXIETY/AGITATION, (Reported) STOP DATE 12-01-2019 Miconazole Nitrate 14 Gm Cream..g., 1 APPLIC TP UD, (Reported) APPLY USING Q-TIP TO GROIN, COCCYN, KARSON-AREA TOPICALLY EVERY SHIFT FOR GAULDING/IRRITATION Polyethylene Glycol 3350 17 Gm Powd.pack, 17 GM PO BID, (Reported) Potassium Chloride 10 Meq Tab.er.prt, 20 MEQ PO BID, (Reported) TAKES 2 (10MEQ) TABS Risperidone 1 Mg Tablet, 1 MG PO BID, (Reported) Spironolactone 25 Mg Tablet, 12.5 MG PO DAILY, (Reported) TAKES OF A 25MG TAB Tamsulosin HCl 0.4 Mg Cap, 0.4 MG PO BID, (Reported) Patient Home Medication List Home Medication List Reviewed: Yes Review of Systems Review of Systems Constitutional: No fever; other (UNABLE TO OBTAIN RELEVANT INFORMATION FROM PT) Gastrointestinal: See HPI Past Wgzsfne-Hdkhut-Valunr Hx Patient Social History Alcohol Use: Denies Use Recreational Drug Use: No Smoking Status: Unknown if Ever Smoked Recent Foreign Travel: No Contact w/Someone Who Travel: No Recent Infectious Disease Expo: No Past Medical History Surgeries: No Respiratory: No Cardiac: Yes High Cholesterol, Hypertension Neurological: Yes Dementia Genitourinary: No Gastrointestinal: Yes Chronic Constipation Musculoskeletal: No Endocrine: Yes Diabetes, Non-Insulin dep HEENT: No Cancer: No Psychosocial: Yes (DEMENTIA) Schizophrenia Integumentary: No Physical Exam Vital Signs Vital Signs - First Documented 11/22/19 20:20 Temp 36.6 Pulse 91 Resp 18 B/P (MAP) 96/70 (79) Pulse Ox 98 O2 Delivery Room Air Capillary Refill : Less Than 3 Seconds Height/Weight/BMI Height: '" Weight: lbs. oz. kg; 31.00 BMI Method: General Appearance: WD/WN, no apparent distress, other (VERY FLAT AFFECT) Respiratory: normal breath sounds, no respiratory distress, no accessory muscle use, decreased breath sounds (IN BASES) Cardiovascular: regular rate, rhythm, no murmur Gastrointestinal: abnormal bowel sounds (RARE, HIGH-PITCHED BOWEL SOUNDS NOTED IN LEFT MID ABDOMEN), distended (BUT NOT HARD/FIRM), other (PT DOES NOT GRIMACE OR WITHDRAW ON PALPATION OF ABDOMEN) Extremities: pedal edema (2+ EDEMA OF LOWER LEGS, WITH EXTENSIVE CHRONIC VENOUS STASIS CHANGES BILATERALLY. ) Neurologic/Psychiatric: no motor/sensory deficits (GROSS MOTOR/SENSORY INTACT--MOVES ALL EXTREMITIES), alert, other (MENTATION/BEHAVIOR ABOVE) Skin: normal color, warm/dry Progress/Results/Core Measures Results/Orders Lab Results Laboratory Tests Test 11/22/19 20:30 Range/Units White Blood Count 11.1 H 4.3-11.0 10^3/uL Red Blood Count 3.98 L 4.35-5.85 10^6/uL Hemoglobin 12.5 L 13.3-17.7 G/DL Hematocrit 36 L 40-54 % Mean Corpuscular Volume 90 80-99 FL Mean Corpuscular Hemoglobin 31 25-34 PG Mean Corpuscular Hemoglobin Concent 35 32-36 G/DL Red Cell Distribution Width 13.8 10.0-14.5 % Platelet Count 445 H 130-400 10^3/uL Mean Platelet Volume 8.6 7.4-10.4 FL Neutrophils (%) (Auto) 80 H 42-75 % Lymphocytes (%) (Auto) 9 L 12-44 % Monocytes (%) (Auto) 11 0-12 % Eosinophils (%) (Auto) 0 0-10 % Basophils (%) (Auto) 0 0-10 % Neutrophils # (Auto) 8.8 H 1.8-7.8 X 10^3 Lymphocytes # (Auto) 1.0 1.0-4.0 X 10^3 Monocytes # (Auto) 1.2 H 0.0-1.0 X 10^3 Eosinophils # (Auto) 0.0 0.0-0.3 10^3/uL Basophils # (Auto) 0.0 0.0-0.1 10^3/uL Prothrombin Time 17.7 H 12.2-14.7 SEC INR Comment 1.4 0.8-1.4 Activated Partial Thromboplast Time 32 24-35 SEC Sodium Level 130 L 135-145 MMOL/L Potassium Level 4.0 3.6-5.0 MMOL/L Chloride Level 104 98-107 MMOL/L Carbon Dioxide Level 17 L 21-32 MMOL/L Anion Gap 9 5-14 MMOL/L Blood Urea Nitrogen 19 H 7-18 MG/DL Creatinine 0.86 0.60-1.30 MG/DL Estimat Glomerular Filtration Rate > 60 BUN/Creatinine Ratio 22 Glucose Level 97 70-105 MG/DL Calcium Level 8.2 L 8.5-10.1 MG/DL Corrected Calcium 8.8 8.5-10.1 MG/DL Magnesium Level 1.8 1.6-2.4 MG/DL Total Bilirubin 0.6 0.1-1.0 MG/DL Aspartate Amino Transf (AST/SGOT) 53 H 5-34 U/L Alanine Aminotransferase (ALT/SGPT) 39 0-55 U/L Alkaline Phosphatase 68 40-136 U/L Total Protein 5.5 L 6.4-8.2 GM/DL Albumin 3.2 3.2-4.5 GM/DL Amylase Level 14 L 25-125 U/L Lipase 4 L 8-78 U/L My Orders Orders - JERALD WAGNER DO Ed Iv/Invasive Line Start (11/22/19 20:28) Monitor-Rhythm Ecg Trace Only (11/22/19 20:28) Amylase (11/22/19 20:28) Cbc With Automated Diff (11/22/19 20:28) Comprehensive Metabolic Panel (11/22/19 20:28) Lipase (11/22/19 20:28) Magnesium (11/22/19 20:28) Protime With Inr (11/22/19 20:28) Partial Thromboplastin Time (11/22/19 20:28) Ua Culture If Indicated (11/22/19 20:28) Chest 1 View, Ap/Pa Only (11/22/19 20:28) Ct Abdomen/Pelvis Wo (11/22/19 20:28) Ed Iv/Invasive Line Start (11/22/19 20:28) Ed Iv/Invasive Line Start (11/22/19 20:38) Lactated Ringers (Lr 1000 Ml Iv Solution (11/22/19 20:38) Ed Iv/Invasive Line Start (11/22/19 21:20) Ns Iv 1000 Ml (Sodium Chloride 0.9%) (11/22/19 21:20) Medications Given in ED Vital Signs/I&O 11/22/19 20:20 Temp 36.6 Pulse 91 Resp 18 B/P (MAP) 96/70 (79) Pulse Ox 98 O2 Delivery Room Air Blood Pressure Mean: [address] ABDOMEN/PELVIS--PER RADIOLOGIST REPORT AT 2108 FINDINGS: The patient has developed a small right pleural effusion. Calcification of the coronary arteries is again identified. There is some thickening of the distal esophagus. The gallbladder is absent. The liver, spleen, pancreas, adrenal glands, and kidneys appear unremarkable. Urinary bladder is unremarkable. A large amount stool is present in the colon. This has increased from the previous exam. The colon measures up to 9.8 cm. Small bowel loops are slightly prominent and fluid-filled. The stomach is mildly distended. No ascites, free air or loculated fluid collections are present. IMPRESSION: 1. There is marked constipation which has worsened from the previous exam. Small bowel loops are mildly dilated. 2. Interval development of a right pleural effusion and trace left pleural effusion. Tiny pericardial effusion is again identified. 3. There is thickening of the distal esophagus, possible esophagitis. 4. A lipoma is seen in the left gluteal region. Reviewed: Reviewed by Me Departure Communication (Admissions) 2109--ATTEMPTING TO CONTACT DR. HERNANDEZ, NO ANSWER AND UNABLE TO LEAVE MESSAGE 2119--SPOKE WITH DR. ROMERO, ADVISES MANUAL DIS-IMPACTION AND ENEMAS 2129--SPOKE WITH DR. HERNANDEZ, ACCEPTS PT FOR ADMIT Impression Primary Impression: Colonic obstruction Additional Impressions: Constipation Dementia Diabetes mellitus Hyponatremia Disposition: ADMITTED INPATIENT Condition: Stable Admissions Decision to Admit Reason: Admit from ER (General) Decision to Admit/Date: Nov 22, 2019 Time/Decision to Admit Time: 21:30 Departure-Patient Inst. Referrals: ISRAEL HELMS MD (PCP/Family) Primary Care Physician JERALD WAGNER DO Nov 22, 2019 21:09
[2019-11-22] MEDS ORDERED: NS IV 1000 ML 1,000 ML IV SCH (21:20)
--- OUTSIDE RECORDS SUMMARY | 2019-11-22 21:34 | XMS REPORT | Continuity of Care Document ---
Author Author [facility] GroupMARILYN JR Organization [employer] Address Unknown Phone Unavailable Allergies Active Description Code Type Severity Reaction Onset Reported/Identified Relationship to Patient Clinical Status Yes NKA NKA Drug Allergy N/A N/A Confirmed or Hunter ified Yes No known allergies ##NOMEN##,AL1,ceStruct,allergy,746323,089143 Drug N/A N/A Yes ASPIRIN 1191 N/A N/A Yes NKDA NKDA N/A N/A Yes No Known Allergies Mis cellaneous Allergy Unknown 05/16/2011 Yes No Known Allergies No Known Allergies Miscellaneous Allergy Unknown N/A 05/16/2011 Yes No Known Allergies No Known Allergies Miscellaneous Allergy Unknown unknown 06/10/2018 Yes No Known Drug Allergies [id number] Drug Allergy Unknown N/A 08/18/2018 Yes No Known Drug Allergy NKDA N/A N/A 01/01/2019 Yes No Known Drug Allergies [id number] Drug Allergy Unknown N/A 09/03/2019 Medications Medication [...] 200 MG DAILY XARELTO 04/27/19 16 ORAL 24JH85XU daily TYLENOL 04/27/19 16 ORAL [id number] every 4 hrs TINACTIN 016 External 1%1% daily SEROQUEL 016 ORAL 152NS017VW daily SENNA 04/27/2015 ORAL 8.6MG8.6MG twice d aily REMERON 04/27/19 16 ORAL 62XF66MM daily RANITIDINE HCL 0 04/27/2015 ORAL 850TY922RU daily POTASSIUM CHLORIDE MICHELLE ER 04/27/2015 ORAL 87ZAI77RGG daily POLYETHYLENE GLYCOL 3350 04/27/2015 ORAL maria d y T PRN MILK OF MAGNESIA 04/27/2015 ORAL 1200MG/40OY0452OJ/15ML daily METOPROLOL TARTRATE 04/27/2015 ORAL 38TU69OU t wice daily METAMUCIL 2015 ORAL 28.3%28.3% daily LISINOPRIL 04/27 ORAL 2.5MG2.5MG daily LEXAPRO 04/27/19 16 ORAL 77GS32PF daily FUROSEMIDE 04/27 ORAL 65nq71KV daily FLOMAX 6 ORAL 0.4MG0.4MG daily EQL B-12 016 Oral 1415INU5810HOV korina ly DITROPAN XL 04/07 ORAL 5MG5MG three ti mes daily DILTIAZEM HCL ER 04/27/2015 ORAL 873JN783WW daily COLACE 6 ORAL 114zg532UI every 1 2 hrs ATORVASTATIN CALCIUM 04/27/2015 ORAL 08CL88CS d aily ARTIFICIAL TEARS 04/27/2015 Ophthalmic 0.2-0.2-1%0.2-0.2-1% every 8 hrs ABILIFY 04/27/19 16 ORAL 73ZB28HR daily SENNA-S 05/04/19 16 ORAL 8.6-50MG8.6-50MG t wice daily POLYETHYLENE GLYCOL 3350 05/04/2015 ORAL twic e daily MIRALAX 05/04/19 16 ORAL Ranitidine Hcl 150 MG 08/15/2015 150 MG BID LOPERAMIDE HCL/SIMETHICONE 1 EACH 08/15/2015 06/09/2018 PO 1 EACH M RANITIDINE HCL 150 MG 08/15/2015 PO 150 MG M Metoprolol Tartrate 25 MG 12/12/2015 12.5 MG BI D Nystatin 067328 UNIT/GRAM 08/05/2016 1 APPL AD NYSTATIN 15 GM 0 08/05/2016 06/09/2018 TP 1 APPL M PROMETHAZINE HCL 25 MG 08/05/2016 06/09/2018 PO 25 MG M DEXTROMETHORPHAN HBR 15 MG/5 ML 10/15/2016 06/09/2018 PO 15 MG M Fluticasone Propionate 50 MCG/ACTUATION 10/15/2016 1 SPRAY BID Montelukast Sodium 10 MG 12/09/2016 10 MG MARIA D Y ERGOCALCIFEROL (VITAMIN D2) 82051 UNIT 02/04/2017 06/09/2018 [place] [address] UNIT M Apixaban 5 MG 5 MG [...] Non-Formulary 06/02/2019 06/02/2019 <RXR.1.2>IM</RXR.1.2><RXR.1. 2>IM</RXR.1.2> 234 mg Flosser risperiDONE Tab 05/0806/07/2019 <RXR.1.2>Oral</RXR.1.2><RXR.1.2>Oral</RXR.1.2> 0.25 mg BID clonazePAM Tab 06/0506/06/2019 <RXR.1.2>Oral</RXR.1.2><RXR.1.2>Oral</RXR.1.2> 0.25 mg Once Template Non-Formulary 06/09/2019 06/09/2019 <RXR.1.2>IM</RXR.1.2><RXR.1. 2>IM</RXR.1.2> 156 mg Once Template Non-Formulary 06/09/2019 06/09/2019 <RXR.1.2>IM</RXR.1.2><RXR.1. 2>IM</RXR.1.2> 156 mg Flosser Template Non-Formulary 07/09/2019 06/13/2019 <RXR.1.2>IM</RXR.1.2><RXR.1. 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 04/30/2017 Clarissa Guo MD Other E66.01 MORBID (SEVERE) OBESITY DUE TO EXCESS CALORIES 04/30/2017 Clarissa Guo MD Other I48.0 PAROXYSMAL ATRIAL FIBRILLATION 07/30/2017 ABBY TOMAS I S I10 Essential (primary) hypertension 07/30/2017 ABBY TOMAS I P I482 Chronic atrial fibrillation 07/30/2017 ABBY TOMAS I S I872 Venous insufficiency (chronic) (peripheral) 07/30/2017 ABBY TOMAS Z7901 [facility] (current) use of anticoagulants 08/04/2017 Homar Kennedy DO F R47.81 Slurred speech 08/18/2017 F E66.09 Ot er obesity due to excess calories 08/18/2017 F I12.9 Hype rtensive chronic kidney disease with stage 1 through stage 4 chronic kidney disease, or unspecified chronic kidney disease 08/18/2017 F I50.9 Hear t failure, unspecified 08/18/2017 F 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, 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) 08/18/2017 F N18.9 Jazz Musician jer kidney disease, unspecified 08/18/2017 F R60.0 [...] (peripheral) 10/06/2017 JANIF, MOHAMMED I S Z7901 [facility] (current) use of anticoagulants 05/11/2018 JANIF, MOHAMMED I S I10 Essential (primary) hypertension 05/11/2018 JANIF, MOHAMMED I P I482 Chronic atrial fibrillation 05/11/2018 JANIF, MOHAMMED I S I872 Venous insufficiency (chronic) (peripheral) 05/11/2018 JANIF, MOHAMMED I S 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 05/11/2018 Genoveva SEGOVIA, [...] Essential (primary) hypertension 10/06/2018 RUBLOWELLALEYAJAIRA SHENI F 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 10/06/2018 MARSHA HOMAR F [...] S I10 Essential (primary) hypertension 12/07/2018 CLINTABBY SANDS I P I482 Chronic atrial fibrillation 12/07/2018 GENOVEVA EMMANUELTRA I S I872 Venous insufficiency (chronic) (peripheral) 12/07/2018 GENOVEVAABBY I S 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 01/06/2019 Eva Rader Drake W [id number] 5 feeling agitated 01/06/2019 PRASANTH EVA F R60.0 Localized edema 01/06/2019 KORINAEAV SNIDER I48.91 Unspecified atrial fibrillation 01/06/2019 EVA RADER [...] F25.9 Schizoaffective disorder, unspecified 03/24/2019 Eva Rader W [id number] 00 left against medical advice 04/27/2019 Tyree Lam [id number] 1 aggressive behavior 04/27/2019 Tyree Lam [id number] 5 delusional perception 06/13/2019 Admitting F25.8 Other [...] Jarvis APRN Ot Y92.[address] [facility] [address] 09/21/2019 GARCIA, ZEN Jarvis APRN Ot [...] Jarvis APRN Ot Y92.[address] [facility] [address] Procedures Code Description [place] [address] 08/04/2017 A9577 08/04/2017 19586 FECE S CULTURE AEROBIC BACT GARCIA MARKHAM MD 09/09/2017 62041 STOO L CULTR AEROBIC BACT EA SHAHRZAD SEGOVIA, [facility] 09/09/2017 57252 AGEN T NOS ASSAY W/OPTIC SHAHRZAD SEGOVIA, [facility] 09/09/2017 25214 OFFI CE/OUTPATIENT VISIT, EST LEVEL 4 06/14/2018 05422 OFFI CE/OUTPATIENT VISIT, EST LEVEL 4 08/02/2018 09606 OFFI CE/OUTPATIENT VISIT, EST LEVEL 4 08/20/2018 17249 OFFI CE/OUTPATIENT VISIT, EST LEVEL 4 08/23/2018 18555 GF URINALYSIS NONAUTO W/O SCOPE 10/06/2018 50750 OFFI CE/OUTPATIENT VISIT, EST LEVEL 3 10/06/2018 90256 OFFI CE/OUTPATIENT VISIT, EST LEVEL 3 11/18/2018 81321 OFFI CE/OUTPATIENT VISIT, EST LEVEL 3 01/06/2019 [...] DICTED.NON BLACK:ARVRAT:PT:SER/PLAS:QN:CREATININE-BASED FORMULA (MDRD) 69.4 mL/min/1.73m2 >=60.0 [place] Standard - 02/21/19 07:40 Sodium SerPl-sCnc 140 [...] Amorphous sediment detection in urine sediment by lig t microscopy RARE GIOVANNI URATES NRG Complete blood count (CBC) with automate d white blood cell (WBC) differential - 11/20/19 15:50 Blood leukocytes automated count (number/volume) 14.0 10*3/uL 4.3-11.0 Blood erythrocytes automated count (number/volume) 4.32 10*6/uL 4.35-5.85 Venous blood hemoglobin measurement (mass/volume) 13.7 g/dL 13.3-17.7 Blood hematocrit (volume fraction) 39 % 40-54 Automated erythrocyte mean corpuscular volume 91 [ foz_us] 80-99 Automated erythrocyte mean corpuscular h emoglobin (mass per erythrocyte) 32 pg 25-34 Automated erythrocyte mean corpuscular h emoglobin concentration measurement (mass/volume) 35 g/dL 32-36 Automated erythrocyte distribution width ratio 14. 4 % 10.0- 14.5 Automated blood platelet count (count/volume) 467 10*3/uL 130-400 Automated blood platelet mean volume measurement 9.1 [foz_us] 7.4-10.4 Automated blood neutrophils/100 leukocytes 84 % 42-75 Automated blood lymphocytes/100 leukocytes 6 % 12-44 Blood monocytes/100 leukocytes 10 % 0-12 Automated blood eosinophils/100 leukocytes 0 % 0-10 Automated blood basophils/100 leukocytes 0 % 0-10 Blood neutrophils automated count (number/volume) 11.7 10*3 1.8-7.8 Blood lymphocytes automated count (number/volume) 0.9 10*3 1.0-4.0 Blood monocytes automated count (number/volume) 1. 4 10*3 0.0-1.0 Automated eosinophil count 0.0 10*3/uL 0 .0-0.3 Automated blood basophil count (count/volume) 0.0 10*3/uL 0.0-0.1 Comprehensive metabolic panel - 11/20/19 15:50 Serum or plasma sodium measurement (moles/volume) 132 mmol/L 135-145 Serum or plasma potassium measurement (moles/volume) 4.7 mmol/L 3.6-5.0 Serum or plasma chloride measurement (moles/volume) 110 mmol/L 98-107 Carbon dioxide 11 mmol/L 21-32 Serum or plasma anion gap determination (moles/volume) 11 mmol/L 5-14 Serum or plasma urea nitrogen measurement (mass/volume ) 21 mg/dL 7-18 Serum or plasma creatinine measurement (mass/volume) 1.14 mg/dL 0.60-1.30 Serum or plasma urea nitrogen/creatinine mass ratio 18 NRG Serum or plasma creatinine measurement w ith calculation of estimated glomerular filtration rate > NRG Serum or plasma glucose measurement (mass/volume) 123 mg/dL 70-105 Serum or plasma calcium measurement (mass/volume) 8.7 mg/dL 8.5-10.1 Serum or plasma total bilirubin measurement (mass/volu me) 0.4 mg/dL 0.1-1.0 Serum or plasma alkaline phosphatase milli surement (enzymatic activity/volume) 86 U/L 40-136 Serum or plasma aspartate aminotransfera se measurement (enzymatic activity/volume) 116 U/L 5-34 Serum or plasma alanine aminotransferase measurement (enzymatic activity/volume) 38 U/L 0-55 Serum or plasma protein measurement (mass/volume) 6.5 g/dL 6.4-8.2 Serum or plasma albumin measurement (mass/volume) 3.6 g/dL 3.2-4.5 CALCIUM CORRECTED 9.0 mg/dL 8.5-10.1 Serum or plasma C reactive protein measu rement (mass/volume) - 11/20/19 15:50 Serum or plasma C reactive protein measurement (mass/v olume) 3.40 mg/dL 0.00-0.50 Manual absolute plasma cell count - 11/04 09/23 15:50 Blood monocytes/100 leukocytes 9 % NRG Manual blood segmented neutrophils/100 leukocytes 69 % NRG Blood band neutrophils/100 leukocytes 13 % NRG Manual blood lymphocytes/100 leukocytes 9 % NRG Blood spherocytes detection by light microscopy SL IGHT NRG Erythrocyte sedimentation rate by jessica gren method - 11/20/19 15:50 Erythrocyte sedimentation rate by westergren method 2 mm 0- 30 Encounters ACCT No. Visit Date/Time Discharge Status Pt. Type Provider Facility Loc./Unit Complaint [id number] 12/02/2018 09:05:10 12/02/2018 23:59: 59 CLS Outpatient ABBY TOMAS I [id number] 05/11/2018 09:21:00 05/11/2018 09:21: 00 DIS Outpatient ABBY TOMAS I [id number] 10/06/2017 14:29:00 10/06/2017 14:29: 00 DIS Outpatient ABBY TOMAS I [id number] 07/30/2017 09:57:00 07/30/2017 09:57: 00 DIS Outpatient ABBY TOMAS I [id number] 04/30/2017 09:52:00 04/30/2017 23:59: 59 CLS Outpatient Kiran GUO, [id number] 03/19/2017 10:46:00 03/19/2017 23:59: 59 CLS Outpatient Kiran GUO, [id number] 11/20/2019 15:10:00 18:50:00 DIS Emergency ZEN GARCIA APRN [facility] ER AMS, DIARRHEA [id number] 09/18/2019 09:47:00 11:14:00 DIS Emergency ZEN GARCIA APRN [facility] ER FALL [id number] 09/03/2019 18:37:00 19:56:00 DIS Emergency ZEN GARCIA APRN [facility] ER CONFUSION [id number] 07/21/2019 15:14:48 Document Registration [id number] 06/16/2019 11:30:58 Document Registration [id number] 11/03/2019 09:00:00 11/03/2019 23:59: 59 CLS Outpatient [facility] [id number] 04/08/2016 15:18:31 04/08/2016 23:59:5 9 CLS Outpatient [id number] 06/13/2019 11:25:00 Document Registration [id number] 05/30/2019 01:37:00 Document Registration [id number] 05/23/2019 08:15:00 Document Registration [id number] 05/05/2019 23:05:19 Document Registration [id number] 03/20/2019 08:56:01 Document Registration [id number] 02/17/2019 14:45:29 ACT Inpatient Kalyani [facility] [id number] 09/09/2018 08:00:00 09/09/2018 23:5 9:00 DIS Outpatient Óscar Bermudez [facility] OP OSF [id number] 08/25/2018 07:00:00 09/09/2018 23:5 9:00 DIS Outpatient Arianna Arzola [facility] RHC pro fee [id number] 08/25/2018 12:40:00 09/09/2018 13:2 0:00 DIS Inpatient Kalyani Rush [facility] DANYEL resistive with cares, push s taff away, believes some guys are going to shoot him, increase delusions [id number] 05/29/2019 14:14:00 20:40:00 DIS Emergency Tyree Lam 2 [id number] 05/04/2019 15:32:00 23:59:00 DIS Outpatient 24 [id number] 04/27/2019 13:57:00 23:59:00 DIS Outpatient Eva Rader 24 [id number] 04/16/2019 12:06:00 18:07:00 DIS Emergency Eva Rader 2 [id number] 03/24/2019 08:22:00 23:59:00 DIS Outpatient Eva Rader 24 [id number] 02/12/2019 10:12:00 12:40:00 DIS Emergency Eva Rader 2 [id number] 12/07/2018 11:08:00 23:59:00 DIS Outpatient MANUEL DARLING 24 [id number] 12/07/2018 11:07:00 12:21:00 DIS Outpatient MANUEL DARLING 71 [id number] 10/06/2018 16:09:00 23:59:00 DIS Outpatient YAJAIRA RODRIGUES I 24 [id number] 09/23/2018 08:19:00 15:16:22 DIS Outpatient YAJAIRA RODRIGUES I 24 [id number] 09/15/2018 14:06:00 23:59:00 DIS Outpatient RUBENTHALER SOL, YAJAIRA I 24 [id number] 08/23/2018 15:20:00 23:59:00 DIS Outpatient RUBENTHALER SOL, YAJAIRA I 24 [id number] 08/20/2018 11:31:00 23:59:00 DIS Outpatient RUBLOWELLALER RADHAFany, YAJAIRA I 24 [id number] 08/04/2018 09:08:00 23:59:00 DIS Outpatient RUBENTHALER RADHAFany, YAJAIRA I 24 [id number] 08/02/2018 14:56:00 23:59:00 DIS Outpatient RUBLOWELLALER SOL, YAJAIRA I 24 [id number] 07/22/2018 08:40:00 23:59:00 DIS Outpatient RUBLOWELLALER RADHAFanyYAJAIRA I 24 [id number] 06/22/2018 11:03:00 23:59:00 DIS Outpatient RUBENTHALER RADHAFanyYAJAIRA I 24 [id number] 06/08/2018 12:41:00 06/09/19 19 13:28:00 DIS Outpatient MANUEL DARLING 71 [id number] 05/27/2018 18:41:00 05/27/19 19 23:59:00 DIS Outpatient 24 [id number] 05/27/2018 07:49:00 05/27/19 19 23:59:00 DIS Outpatient RUBENTHALER ELIZABETHRAVINFany YAJAIRA I 24 [id number] 04/22/2018 08:56:00 04/22/19 19 23:59:00 DIS Outpatient RUBENTHALER SOL YAJAIRA I 24 [id number] 03/25/2018 08:00:00 03/25/20 18 23:59:00 DIS Outpatient RUBENTHALER FARRUKHFRIDAFany YAJAIRA I 24 [id number] 03/19/2018 14:15:00 03/19/20 18 23:59:00 DIS Outpatient 24 [id number] 07/11/2015 06:07:29 07/11/2015 06:0 7:29 DIS Outpatient [id number] 08/18/2018 10:52:00 019 11:32:00 DIS Outpatient Lamar SEGOVIA, Bed P HMG.NEPH CHROKIDDIS [id number] 08/17/2018 23:59:00 019 23:59:59 CLS Outpatient Lamar SEGOVIA, Bed P HMG.NEPH [id number] 07/28/2018 23:59:00 019 23:59:59 CLS Outpatient Humaira Sumner, Manuel YOU.URO [id number] 06/08/2018 06:22:00 14:26:00 DIS Outpatient Humaira Sumner, [facility] HMG.URO.GO 6mo/prostate cancer follow u p [id number] 05/11/2018 09:39:00 09:45:00 DIS Outpatient Genoveva SEGOVIA, [facility] HMG.CAR.CO 6 mo f/u no prior testing [id number] 10/22/2017 09:53:00 018 23:59:59 [facility] [id number] 10/06/2017 14:42:00 018 15:00:00 DIS Outpatient Genoveva SEGOVIA, [facility] HMG.CAR.CO Afib/HFU - per Dr. Alcides quiros [id number] 10/06/2017 08:50:00 018 12:50:00 DIS Outpatient Humaira Sumner, [facility] HMG.URO.GO PROSTATECA [id number] 08/18/2017 13:49:00 018 23:59:59 CLS Outpatient Lamar SEGOVIA, [facility] L.NEPH.P [id number] 08/18/2017 11:11:00 018 11:57:00 DIS Outpatient Lamar SEGOVIA, [facility] HMG.NEPH CHROKIDDIS [id number] 08/04/2017 09:49:00 018 09:50:00 DIS Outpatient Marcia DE LEÓN [facility] IMG.HO.MRI SLURRED SPEECH, R/O STRO KE [id number] 07/30/2017 10:04:00 018 10:00:00 DIS Outpatient Genoveva SEGOVIA, [facility].CAR.CO AFIB [id number] 04/30/2017 10:00:00 018 23:59:59 CLS Outpatient Sari SEGOVIA, [facility].CO FOLLOW UP POST ER [id number] 03/19/2017 11:00:00 017 23:59:59 CLS Outpatient Sari SEGOVIA, [facility].CO 1 YR F/U NO TESTING PRIOR [id number] 07/17/2016 17:14:00 017 00:01:00 DIS Outpatient Aaron Ramos, [facility] RADON [id number] 12/09/2016 14:47:00 017 23:59:59 CLS Outpatient Lamar SEGOVIA, [facility] L.NEPH.P 1 YR/F/U FOR CKD [id number] 12/09/2016 13:20:00 017 23:59:59 CLS Outpatient Lamar SEGOVIA, [facility] HMG.NEPH 1 YR/F/U FOR CKD [id number] 10/15/2016 07:45:00 017 23:59:59 CLS Outpatient Humaira Sumner, [facility] HMG.WKUAGO 2 MTHS/RETENTION [id number] 08/05/2016 07:30:00 017 23:59:59 CLS Outpatient Humaira Sumner, [facility] HMG.WKUAGO 6 MTHS/CAP [id number] 12/14/2015 08:26:00 00:01:00 DIS Outpatient Aaron Ramos, [facility] RADON [id number] 02/14/2016 11:00:00 23:59:59 CLS Outpatient Robina SEGOVIA, [facility].CO 1 YR F/U ECHO PRIOR [id number] 02/05/2016 07:15:00 23:59:59 CLS Outpatient Humaira Sumner, [facility] HMG.WKUAGO [id number] 12/12/2015 15:17:00 23:59:59 CLS Outpatient Lamar SEGOVIA, [facility] L.NEPH.P 9MO F/U FOR CKD [id number] 12/12/2015 14:00:00 23:59:59 CLS Outpatient Lamar SEGOVIA, [facility] HMG.NEPH [id number] 08/15/2015 11:00:00 23:59:59 CLS Outpatient Humaira Sumner, [facility] HMG.WKUAGO [id number] 06/11/2015 12:13:00 23:59:59 CLS Outpatient Lamar SEGOVIA, [facility] L.NEPH.P [id number] 05/25/2015 12:42:00 23:59:00 DIS Outpatient Aaron Ramos [facility] IMG.CT [id number] 05/23/2015 09:59:00 016 23:59:00 DIS Outpatient Aaron Ramos [facility] IMG.CT [id number] 05/02/2015 10:00:00 10:00:00 CAN Preadmit Aaron Ramos [facility] IMG.CT [id number] 03/08/2015 14:33:00 23:59:59 CLS Outpatient Shlomo Orona DO [facility] DEBBY [id number] 10/16/2014 16:55:00 015 23:59:59 CLS Outpatient Lamar SEGOVIA, [facility] L.NEPH.P [id number] 01/16/2014 14:59:00 014 23:59:59 CLS Outpatient Lamar SEGOVIA, [facility] L.NEPH.P [id number] 07/11/2013 15:05:00 014 23:59:59 CLS Outpatient Lamar SEGOVIA, [facility] L.NEPH.P [id number] 12/20/2012 14:53:00 23:59:59 CLS Outpatient Lamar SEGOVIA, [facility] L.NEPH.P [id number] 06/23/2012 14:46:00 23:59:59 CLS Outpatient Lamar SEGOVIA, [facility] L.NEPH.P [id number] 03/18/2012 14:44:00 23:59:59 CLS Outpatient Thierry SEGOVIA [facility], [facility] LEIGHTONLarryPADMINI [id number] 10/17/2011 12:00:00 23:59:59 CLS Outpatient Lamar SEGOVIA, [facility] L.NEPH.P [id number] 02/17/2019 11:00:00 Document Registration [id number] 10/29/2017 13:45:00 Document Registration [id number] 10/02/2017 14:14:00 Document Registration [id number] 08/20/2017 14:58:00 Document Registration [id number] 08/18/2017 11:11:00 Document Registration [id number] 07/28/2017 14:47:00 Document Registration [id number] 07/24/2017 08:31:00 Document Registration [id number] 07/23/2017 15:24:00 Document Registration [id number] 08/06/2018 10:16:00 Document Registration [id number] 09/10/2017 09:57:00 09/10/2017 09:57 :00 DIS Outpatient LICKE MD, [facility] [id number] 01/06/2019 16:15:00 01/06/2019 23:59: 59 CLS Outpatient EVA RADER [facility] [id number] 11/18/2018 15:14:00 11/18/2018 23:59: 59 [id number] 10/06/2018 15:36:00 10/06/2018 23:59: 59 [id number] 08/23/2018 14:46:00 08/23/2018 23:59: 59 [facility] [id number] 08/20/2018 10:53:00 08/20/2018 23:59: 59 CLS Outpatient [facility] [id number] 08/02/2018 14:35:00 08/02/2018 23:59: 59 CLS Outpatient [facility] [id number] 06/14/2018 10:02:00 06/14/2018 23:59: 59 CLS Outpatient [facility] [id number] 06/06/2019 20:21:00 Document Registration [id number] 06/04/2019 09:11:00 Document Registration [id number] 04/17/2019 03:22:00 Document Registration [id number] 11/15/2018 17:32:00 Document Registration [id number] 11/08/2018 07:27:00 Document Registration
--- NOTE | 2019-11-22 21:37 | Diagnostic Imaging Report ---
INDICATION: Abdominal distention FINDINGS: AP view of the chest demonstrates mild cardiomegaly with normal vascularity. There is some tortuosity of the great vessels. The lungs are clear. There are no pleural effusions. IMPRESSION: There is mild cardiomegaly. Dictated by: Dictated on workstation # [id number]
[2019-11-22] MEDS ORDERED: D5 NS W/KCL 20 MEQ/L 1,000 ML IV ONE (23:13)
[2019-11-23] MEDS ORDERED: D5 NS W/KCL 20 MEQ/L 1,000 ML IV ONE (06:12)
[2019-11-23] MEDS ORDERED: PROPOFOL INJECTION 50 ML IV ONE (13:06)
[2019-11-23] MEDS ORDERED: LACTATED RINGERS 1,000 ML IV ONE (13:06)
[2019-11-23] MEDS ORDERED: NS IV 1000 ML 1,000 ML ONE (14:06)
[2019-11-23] MEDS ORDERED: GOLYTELY POWDER 4000 ML BTL PO ONE (14:30)
[2019-11-23] MEDS ORDERED: D5 NS 1000 ML IV SOLUTION 1,000 ML IV ONE (22:01)
[2019-11-23] MEDS ORDERED: APIXABAN 5 MG (ELIQUIS) TABLET ONE (22:01)
[2019-11-23] MEDS ORDERED: risperiDONE 1 MG (RisperDAL) TAB ONE (22:03)
[2019-11-24] MEDS ORDERED: ONDANSETRON 4 MG/2 ML (SDV) Z0FRAN ONE (05:39)
[2019-11-24 06:08] LABS: COLOR,URINE YELLOW
[2019-11-24 06:09] LABS: CLARITY,URINE CLOUDY; GLUCOSE, URINE (UA) NEGATIVE (NEGATIVE); KETONES,URINE TRACE (NEGATIVE); PH,URINE 5.5 (5-9); PROTEIN,URINE NEGATIVE (NEGATIVE)
[2019-11-24 06:10] LABS: BACTERIA,URINE NEGATIVE /HPF; BILIRUBIN,URINE NEGATIVE (NEGATIVE); LEUKOCYTE ESTERASE ,URINE NEGATIVE (NEGATIVE); NITRITE,URINE NEGATIVE (NEGATIVE); SQUAMOUS EPITHELIAL CELL,UR 0-2 /HPF
[2019-11-24 06:11] LABS: HYALINE CASTS, URINE 0-2 /LPF
[2019-11-24 08:00] VITALS: BP 106/74
--- NOTE | 2019-11-24 09:20 | Anesthesia-General Post-Op ---
MAC Patient Condition Mental Status/LOC: Same as Preop Cardiovascular: Satisfactory Nausea/Vomiting: Absent Respiratory: Satisfactory Pain: Controlled Complications: Absent Post Op Complications Complications None Follow Up Care/Instructions Patient Instructions None needed. Anesthesiology Discharge Order Discharge Order Patient is doing well, no complaints, stable vital signs, no apparent adverse anesthesia problems. No complications reported per nursing. KAREN KHAN CRNA Nov 24, 2019 09:20
[2019-11-24] MEDS ORDERED: DILT120T11 PO (09:27)
[2019-11-24] MEDS ORDERED: FURO-124 PO (09:27)
[2019-11-24] MEDS ORDERED: ELUX100T PO (09:27)
[2019-11-24] MEDS ORDERED: HALO5AMP IJ (09:27)
[2019-11-24] MEDS ORDERED: POTA10TA36 PO (09:27)
[2019-11-24] MEDS ORDERED: APIX5TAB PO (09:27)
[2019-11-24] MEDS ORDERED: ATOR20TA49 PO (09:27)
[2019-11-24] MEDS ORDERED: RISP1TAB94 PO (09:27)
[2019-11-24] MEDS ORDERED: TMSL.4C PO (09:27)
[2019-11-24] MEDS ORDERED: BENZ1TAB6 PO (09:27)
[2019-11-24] MEDS ORDERED: POLY17PO6 PO (09:27)
[2019-11-24] MEDS ORDERED: CHOL4PAC16 PO (09:27)
[2019-11-24] MEDS ORDERED: MICO14CR6 TP (09:27)
[2019-11-24] MEDS ORDERED: SPIR25TA PO (09:27)
[2019-11-24] MEDS ORDERED: ACET325C7 PO (09:27)
[2019-11-24 10:15] LABS: BASOPHILS % (AUTO) 0 % (0-10); EOSINOPHILS % (AUTO) 1 % (0-10); HEMATOCRIT 36 % (40-54); HEMOGLOBIN 12.4 G/DL (13.3-17.7); LYMPHOCYTES # (AUTO) 0.8 X 10^3 (1.0-4.0); LYMPHOCYTES % (AUTO) 7 % (12-44); MEAN CORPUSCULAR HEMOGLOBIN 31 PG (25-34); MEAN CORPUSCULAR HGB CONC 35 G/DL (32-36); MEAN CORPUSCULAR VOLUME 91 FL (80-99); MEAN PLATELET VOLUME 8.8 FL (7.4-10.4); MONOCYTES % (AUTO) 8 % (0-12); NEUTROPHILS # (AUTO) 9.8 X 10^3 (1.8-7.8); NEUTROPHILS % (AUTO) 84 % (42-75); PLATELET COUNT 396 10^3/uL (130-400); RED CELL DISTRIBUTION WIDTH 14.3 % (10.0-14.5); WHITE BLOOD COUNT 11.6 10^3/uL (4.3-11.0)
[2019-11-24 10:16] LABS: EOSINOPHILS # (AUTO) 0.1 10^3/uL (0.0-0.3); MONOCYTES # (AUTO) 0.9 X 10^3 (0.0-1.0)
[2019-11-24 10:17] LABS: ALANINE AMINOTRANSFERASE 28 U/L (0-55); ALKALINE PHOSPHATASE 73 U/L (40-136); BILIRUBIN,TOTAL 0.4 MG/DL (0.1-1.0); BUN/CREATININE RATIO 13; CALCIUM 7.6 MG/DL (8.5-10.1); CARBON DIOXIDE 21 MMOL/L (21-32); CHLORIDE 107 MMOL/L (98-107); GFR ESTIMATED > 60; GLUCOSE 85 MG/DL (70-105); POTASSIUM 3.3 MMOL/L (3.6-5.0); SODIUM 136 MMOL/L (135-145)
[2019-11-24 10:18] LABS: ALBUMIN 2.7 GM/DL (3.2-4.5); TOTAL PROTEIN 4.9 GM/DL (6.4-8.2)
[2019-11-24] MEDS: inSUlin ASPART (NovoLOG) 1 UNIT/0.01 ML (CHARGE PER UNIT) SC SCH ×3 (11:30→21:12)
[2019-11-24] MEDS: SPIRONOLACTONE 25 MG (ALDACTONE) TAB PO SCH (11:39)
[2019-11-24] MEDS: BENZTROPINE MESYLATE 1 MG (COGENTIN) TAB PO SCH ×2 (11:40→21:18)
[2019-11-24] MEDS: FUROSEMIDE 40 MG (LASIX) TAB PO SCH (11:40)
[2019-11-24] MEDS: APIXABAN 5 MG (ELIQUIS) TABLET PO SCH ×2 (11:40→21:18)
--- NOTE | 2019-11-24 11:40 | Progress Note ---
NELDAALYSIA MED STUDENT 11/24/19 1140: Subjective Date Seen by a Provider: Nov 24, 2019 Time Seen by a Provider: 08:45 Subjective/Events-last exam Patient states that he does not feel any pain this morning. He states that he feels like he needs to vomit but has not. He states that he had a bowel movement this morning but cannot be sure of the time. Nurse states that he has had multiple bowel movements later in the morning. He states that he has not eaten and that his stomach has a feeling of fullness. He states that he does not have any trouble breathing. Pt appears to be more alert and oriented than yesterday but is still somewhat confused. Focused Exam Sepsis Stage: Ruled Out Reason for ruling out sepsis: No spetic symptoms present Respiratory: Chest Non Tender, Lungs Clear, Normal Breath Sounds, No Accessory Muscle Use, No Respiratory Distress Cardiovascular: Regular Rate, Rhythm; No No Edema (Patient has slightly edematous bilateral lower extremties); No Murmur Peripheral Pulses: 2+ Radial Pulses (R) Skin: normal color, warm/dry Objective Exam Last Set of Vital Signs Vital Signs Date Time Temp Pulse Resp B/P (MAP) Pulse Ox O2 Delivery O2 Flow Rate FiO2 11/24/19 08:00 36.6 80 20 106/74 (85) 99 Room Air Capillary Refill : Less Than 3 Seconds General: Alert, Other (Patient is oritented to person, but not place or time. ) Lungs: Clear to Auscultation Heart: Regular Rate, No Murmurs Abdomen: Soft, Other (Abdomen is somehwat soft but distented. Patient states that there is a feeling of uncomfortable fullness on palpation. ) Extremities: Other (Mild edema on bilateral lower extremities) Skin: No Rashes Results Lab Laboratory Tests 11/24/19 06:00: White Blood Count 11.6H, Red Blood Count 3.94L, Hemoglobin 12.4L, Hematocrit 36L , Mean Corpuscular Volume 91, Mean Corpuscular Hemoglobin 31, Mean Corpuscular Hemoglobin Concent 35, Red Cell Distribution Width 14.3, Platelet Count 396, Mean Platelet Volume 8.8, Neutrophils (%) (Auto) 84H, Lymphocytes (%) (Auto) 7L, Monocytes (%) (Auto) 8, Eosinophils (%) (Auto) 1, Basophils (%) (Auto) 0, Neutrophils # (Auto) 9.8H, Lymphocytes # (Auto) 0.8L, Monocytes # (Auto) 0.9, Eosinophils # (Auto) 0.1, Basophils # (Auto) 0.0, Sodium Level 136, Potassium Level 3.3L, Chloride Level 107, Carbon Dioxide Level 21, Anion Gap 8, Blood Urea Nitrogen 8, Creatinine 0.60, Estimat Glomerular Filtration Rate > 60, BUN/Creatinine Ratio 13, Glucose Level 85, Calcium Level 7.6L, Corrected Calcium 8.6, Total Bilirubin 0.4, Aspartate Amino Transf (AST/SGOT) 26, Alanine Aminotransferase (ALT/SGPT) 28, Alkaline Phosphatase 73, Total Protein 4.9L, Albumin 2.7L Assessment/Plan Assessment/Plan Assess & Plan/Chief Complaint Bowel Obstruction 1. PEG administered to patient, who appears to have had multiple bowel movements since. 2. Colonoscopy was attempted 3. Continue patient on NPO until blockage passes 4. Continue to hydrate Patient IV due to NPO status Hypokalemia 1. Prescribe IV K to help ensure GI motility 2. Continue to monitor patients K with morning labs Dementia 1. Continue patients psych meds 2. Monitor patient for any changes or worsening of his mental status DVT Prophylaxis 1. Continue patient on Apixaban for prophylaxis Final Diagnosis Bowel Obstruction Diagnosis/Problems Diagnosis/Problems (1) Colonic obstruction (2) Dementia (3) DVT prophylaxis (4) Hypokalemia Supervisory-Addendum Brief Verification & Attestation Participated in pt care: history, physical Personally performed: exam, history Care discussed with: other (Attending) Procedures: n/a ARIANA SHARIF MD 11/25/19 1516: Supervisory-Addendum Brief Verification & Attestation Participated in pt care: history, MDM, physical Personally performed: exam, history, MDM Care discussed with: Medical Student Procedures: n/a Verification and Attestation of Medical Student E/M Service A medical student performed and documented this service. I reviewed and verified all information documented by the medical student and made modifications to such information, when appropriate. I personally performed a history, physical exam and medical decision making. Ariana Sharif, Nov 25, 2019,15:16 ALYSIA LUTZ MED STUDENT Nov 24, 2019 11:40 ARIANA SHARIF MD Nov 25, 2019 15:16
[2019-11-24 12:00] VITALS: BP 84/52
[2019-11-24] MEDS: risperiDONE 1 MG (RisperDAL) TAB PO SCH ×2 (12:08→21:18)
[2019-11-24] MEDS: POTASSIUM CL 10MEQ/50ML IVPB 50 ML IV SCH ×4 (12:09→14:42)
[2019-11-24 12:14] LABS: CALCIUM OXALATE CRYSTALS,UR FEW /LPF
[2019-11-24 12:15] LABS: CARBON DIOXIDE 16 MMOL/L (21-32); CHLORIDE 108 MMOL/L (98-107); POTASSIUM 4.2 MMOL/L (3.6-5.0); SODIUM 131 MMOL/L (135-145)
[2019-11-24 12:16] LABS: ALANINE AMINOTRANSFERASE 35 U/L (0-55); ALBUMIN 3.1 GM/DL (3.2-4.5); ALKALINE PHOSPHATASE 70 U/L (40-136); BILIRUBIN,TOTAL 0.5 MG/DL (0.1-1.0); BUN/CREATININE RATIO 19; CREATININE SERUM 0.75 MG/DL (0.60-1.30); GFR ESTIMATED > 60; GLUCOSE 107 MG/DL (70-105); TOTAL PROTEIN 5.4 GM/DL (6.4-8.2)
[2019-11-24] MEDS: NS IV 1000 ML 1,000 ML IV SCH ×2 (12:16→21:23)
[2019-11-24 12:23] LABS: HEMATOCRIT 36 % (40-54); HEMOGLOBIN 12.5 G/DL (13.3-17.7); MEAN CORPUSCULAR HEMOGLOBIN 31 PG (25-34); MEAN CORPUSCULAR HGB CONC 34 G/DL (32-36); MEAN CORPUSCULAR VOLUME 91 FL (80-99); PLATELET COUNT 396 10^3/uL (130-400); RED CELL DISTRIBUTION WIDTH 13.9 % (10.0-14.5); WHITE BLOOD COUNT 10.3 10^3/uL (4.3-11.0)
[2019-11-24 12:24] LABS: BASOPHILS % (AUTO) 0 % (0-10); EOSINOPHILS % (AUTO) 0 % (0-10); LYMPHOCYTES # (AUTO) 1.3 X 10^3 (1.0-4.0); LYMPHOCYTES % (AUTO) 13 % (12-44); MEAN PLATELET VOLUME 8.6 FL (7.4-10.4); MONOCYTES # (AUTO) 1.1 X 10^3 (0.0-1.0); MONOCYTES % (AUTO) 11 % (0-12); NEUTROPHILS # (AUTO) 7.8 X 10^3 (1.8-7.8); NEUTROPHILS % (AUTO) 76 % (42-75)
--- NOTE | 2019-11-24 12:57 | Diagnostic Imaging Report ---
INDICATION: Constipation, colonic distention, followup. TIME OF EXAM: 12:01 PM Correlation is made with CT study from 11/22/2019. There is some gaseous distention of small and large bowel loops throughout the abdomen and pelvis. The degree of distention does appear to be improved when compared with the CT study 2 days earlier. No definite bowel wall thickening or pneumatosis is identified. No free air is detected. IMPRESSION: Moderate small and large bowel distention. This has improved since examination 2 days earlier. Continued progress films are recommended. Dictated by: Dictated on workstation # [id number]
--- NOTE | 2019-11-24 14:27 | Progress Note - Surgery ---
GI MCNAMARA MED STUDENT 11/24/19 1427: Subjective Date Seen by a Provider: Nov 24, 2019 Time Seen by a Provider: 14:00 Subjective/Events-last exam Pt sitting up in bed and much more alert and responsive today. States he is feeling better. Reports nausea this morning. Abdomen still distended but improved from yesterday. Has had multiple BM but still remains constipated. Denies fever, chills, sob, chest pain. Review of Systems General: No Chills, No Night Sweats HEENT: No Head Aches, No Visual Changes Pulmonary: No Dyspnea, No Cough Cardiovascular: No: Chest Pain, Palpitations Gastrointestinal: Nausea; No: Vomiting Genitourinary: No Dysuria, No Frequency Musculoskeletal: No: neck pain, shoulder pain Neurological: No: Weakness, Numbness, Incoordination Objective Exam Vital Signs Date Time Temp Pulse Resp B/P (MAP) Pulse Ox O2 Delivery O2 Flow Rate FiO2 11/24/19 13:20 73 11/24/19 12:00 36.3 68 20 84/52 (63) 97 Room Air 11/24/19 08:00 36.6 80 20 106/74 (85) 99 Room Air 11/24/19 07:50 66 Capillary Refill : Less Than 3 Seconds General Appearance: No Apparent Distress, WD/WN HEENT: PERRL/EOMI, Normal ENT Inspection Neck: Non Tender, Supple Respiratory: Chest Non Tender, Lungs Clear, Normal Breath Sounds, No Accessory Muscle Use, No Respiratory Distress Cardiovascular: Regular Rate, Rhythm; No No Edema (Patient has slightly edematous bilateral lower extremties); No Murmur Peripheral Pulses: 2+ Radial Pulses (R) Gastrointestinal: distended Extremity: Non Tender, No Calf Tenderness Neurologic/Psychiatric: Alert, No Motor/Sensory Deficits, Other (dementia) Skin: Normal Color, Warm/Dry Results Lab Laboratory Tests 11/24/19 06:00: White Blood Count 11.6H, Red Blood Count 3.94L, Hemoglobin 12.4L, Hematocrit 36L , Mean Corpuscular Volume 91, Mean Corpuscular Hemoglobin 31, Mean Corpuscular Hemoglobin Concent 35, Red Cell Distribution Width 14.3, Platelet Count 396, Mean Platelet Volume 8.8, Neutrophils (%) (Auto) 84H, Lymphocytes (%) (Auto) 7L, Monocytes (%) (Auto) 8, Eosinophils (%) (Auto) 1, Basophils (%) (Auto) 0, Neutrophils # (Auto) 9.8H, Lymphocytes # (Auto) 0.8L, Monocytes # (Auto) 0.9, Eosinophils # (Auto) 0.1, Basophils # (Auto) 0.0, Sodium Level 136, Potassium Level 3.3L, Chloride Level 107, Carbon Dioxide Level 21, Anion Gap 8, Blood Urea Nitrogen 8, Creatinine 0.60, Estimat Glomerular Filtration Rate > 60, BUN/Creatinine Ratio 13, Glucose Level 85, Calcium Level 7.6L, Corrected Calcium 8.6, Total Bilirubin 0.4, Aspartate Amino Transf (AST/SGOT) 26, Alanine Aminotransferase (ALT/SGPT) 28, Alkaline Phosphatase 73, Total Protein 4.9L, Albumin 2.7L Assessment/Plan Assessment/Plan Assessment/Plan Bowel obstruction NPO Repeat CT Await bowel function ARLEN ALSTON DO 11/25/19 0817: Subjective Subjective/Events-last exam More alert. Having bowel movements. Still distended, but improved. Not pain. Denies n/v fever sweats chills shortness of breath or chest pain. Objective Exam General Appearance: No Apparent Distress, WD/WN HEENT: PERRL/EOMI, Normal ENT Inspection Neck: Non Tender, Supple Respiratory: Chest Non Tender, No Accessory Muscle Use, No Respiratory Distress Cardiovascular: Regular Rate, Rhythm Gastrointestinal: distended; No tenderness Extremity: Non Tender, No Calf Tenderness Neurologic/Psychiatric: Alert, Oriented x3 Skin: Normal Color, Warm/Dry Lymphatic: No Adenopathy Assessment/Plan Assessment/Plan Assessment/Plan constipation colonic distention abdomen slightly better after decompressive colonoscopy will repeat kub in am may need further decompressive colonoscopy Supervisory-Addendum Brief Verification & Attestation Participated in pt care: history, MDM, physical Personally performed: exam, history, MDM, supervision of care Care discussed with: Medical Student Procedures: n/a Results interpretation: Verified all documentation Verification and Attestation of Medical Student E/M Service A medical student performed and documented this service in my presence. I reviewed and verified all information documented by the medical student and made modifications to such information, when appropriate. I personally performed the physical exam and medical decision making. Arlen Alston, Nov 24, 2019,: 1417 GI MCNAMARA STUDENT Nov 24, 2019 14:27 ARLEN ALSTON DO Nov 25, 2019 08:17
--- NOTE | 2019-11-24 14:46 | Physical Therapy Evaluation ---
PT Evaluation-General Medical Diagnosis Admission Date Nov 22, 2019 at 21:20 Medical Diagnosis: colonic obstruction/constipation Onset Date: Nov 22, 2019 Therapy Diagnosis Therapy Diagnosis: debility Precautions Precautions/Isolations: Fall Prevention, Standard Precautions Weight Bear Status Right Lower Extremity: Right Full Weight Bearing Left Lower Extremity: Left Full Weight Bearing Referral Physician: Alecia Reason for Referral: Evaluation/Treatment Medical History Pertinent Medical History: Dementia Current History abdominal distention Social History Home: Group Home Prior Prior Level of Function SCALE: Activities may be completed with or without assistive devices. 4-Qkicplwtco-qszeyfa completes the activity by him/herself with no assistance from a helper. 5-Set-up or Clean-up Assistance-helper sets up or cleans up; patient completes activity. [place] assists only prior to or following the activity. 4-Supervision or Touching Assistance-helper provides verbal cues and/or touching /steadying and/or contact guard assistance as patient completes activity. Assistance may be provided throughout the activity or intermittently. 3-Partial/Moderate Assistance-helper does LESS THAN HALF the effort. [place] lifts, holds or supports trunk or limbs, but provides less than half the effort. 2-Substantial/Maximal Assistance-helper does MORE THAN HALF the effort. [place] lifts or holds trunk or limbs and provides more than half the effort. 9-Fjonhnnod-jiuqfp does ALL the effort. Patient does none of the effort to complete the activity. Or, the assistance of 2 or more helpers is required for the patient to complete the activity. If activity was not attempted, code reason: 7-Patient Refused. 9-Not Applicable-not attempted and the patient did not perform the activity before the current illness, exacerbation or injury. 10-Not Attempted due to Environmental Limitations-(lack of equipment, weather restraints, etc.). 88-Not Attempted due to Medical Conditions or Safety Concerns. Bed Mobility: 6 Transfers (B,C,W/C): 6 Gait: 6 Indoor Mobility (Ambulation): Independent Prior Devices Use: None (per facility) PT Evaluation-Current Subjective Patient is very resistive for OOB activity. Incontinent BM. Objective Patient Orientation: Confused Attachments: IV ROM/Strength ROM Lower Extremities bilateral LE WFL Strength Lower Extremities 5/5 grossly bilateral LE Integumentary/Posture Integumentary refer to nursing notes Bowel Incontinence: Yes Bladder Incontinence: Yes Neuromuscular (Tone, Coordination, Reflexes) grossly intact Sensory Vision: Wears Glasses Hearing: Functional Transfers Roll Left to Right (QC): 1 Sit to Lying (QC): 1 Lying to Sitting/Side of Bed(Q: 1 Sit to Stand (QC): 1 Toilet Transfer (QC): 1 dependent because he is resistive with all mobility Gait Does the Patient Walk?: No and Walking Goal IS indicated Balance Sitting Static: Normal Sitting Dynamic: Normal Standing Static: Fair Standing Dynamic: Fair Assessment/Needs 64 y.o. male, will be seen short term by skilled PT to address functional mobility. Patient is currently incontinent BM, multiple time, and resistive with all mobility. Rehab Potential: Fair PT Narcotics Agent Goals Narcotics Agent Goals PT Snf Goals Time Frame: Dec 03, 2019 Roll Left & Right (QC): 5 Sit to Lying (QC): 5 Lying-Sitting on Side/Bed(QC): 5 Sit to Stand (QC): 5 Chair/Lzl-hn-Sngoa Xfer(QC): 5 Toilet Transfer (QC): 5 Does the Patient Walk: Yes Walk 10 feet (QC): 5 Walk 50ft with 2 Turns (QC): 5 Walk 150 ft (QC): 5 PT Plan Treatment/Plan Treatment Plan: Continue Plan of Care Treatment Plan: Education, Functional Activity Cristino, Functional Strength, Gait Treatment Duration: Dec 03, 2019 Frequency: 5 times per week Estimated Hrs Per Day: .25 hour per day Patient and/or Family Agrees t: Yes Time/GCodes Time In: 1411 Time Out: 1442 Total Billed Treatment Time: 31 Total Billed Treatment 1 visit EVMod 14 min FA 17 min MAYELIN HARRY PT Nov 24, 2019 14:46
--- NOTE | 2019-11-24 15:00 | NUR ---
Pastoral care visit.
--- NOTE | 2019-11-24 16:06 | Occupational Therapy Eval ---
OT Evaluation-General/PLF Medical Diagnosis Admission Date Nov 22, 2019 at 21:20 Medical Diagnosis: colonic obstruction/constipation Onset Date: Nov 22, 2019 Therapy Diagnosis Therapy Diagnosis: Decreased ADL status Precautions Precautions/Isolations: Fall Prevention, Standard Precautions Referral Physician: Alecia Referral Reason: Activity Tolerance, Self Care, Evaluation/Treatment, Strengthening/ROM Medical History Pertinent Medical History: Dementia Additional Medical History Dementia, HTN, NIDDM Current History bowel obstruction with abdominal distention. Admitted from [facility] to ER 11/19. Reviewed History: Yes Social History Home: [facility] ADL-Prior Level of Function SCALE: Activities may be completed with or without assistive devices. 4-Vydsqmmpfp-simhjwm completes the activity by him/herself with no assistance from a helper. 5-Set-up or Clean-up Assistance-helper sets up or cleans up; patient completes activity. [place] assists only prior to or following the activity. 4-Supervision or Touching Assistance-helper provides verbal cues and/or touching/steadying and/or contact guard assistance as patient completes activity. Assistance may be provided throughout the activity or intermittently. 3-Partial/Moderate Assistance-helper does LESS THAN HALF the effort. [place] lifts, holds or supports trunk or limbs, but provides less than half the effort. 2-Substantial/Maximal Assistance-helper does MORE THAN HALF the effort. [place] lifts or holds trunk or limbs and provides more than half the effort. 4-Lvqjlfvba-xohndg does ALL the effort. Patient does none of the effort to complete the activity. Or, the assistance of 2 or more helpers is required for the patient to complete the activity. If activity was not attempted, code reason: 7-Patient Refused. 9-Not Applicable-not attempted and the patient did not perform the activity before the current illness, exacerbation or injury. 10-Not Attempted due to Environmental Limitations-(lack of equipment, weather restraints, etc.). 88-Not Attempted due to Medical Conditions or Safety Concerns. ADL PLOF Comments Based on clinical judgment and history, pt required assist with ADLs. Per PT who spoke with nursing from [facility], pt ambulated without AD. Self Care: Unknown Functional Cognition: Unknown (based on h/o dementia and inability to follow cues, pt likely dependent with fx cognition. ) Drive Self: No OT Current Status Subjective Pt seen in bed/ asleep. Pt wakes with verbals. Pt oriented to person only. Pt unable to state pain, pt states, "Call don't fall" (pictured above bed), through session. Pt does not initiate nor respond to active communication. Pt responds to few cues/ directions through session. Mental Status/Objective Patient Orientation: Person Attachments: IV Current Glasses/Contacts: Yes Upper Extremity ROM WFL BUE : Pt completes AROM during session, all WFL Upper Extremity Coordination WFL BUE- completes intentional tasks with success. Upper Extremity Sensation Unable to test. Upper Extremity Strength WFL (5/5) bilaterally ADL-Treatment Eating (QC): 88 (NPO at this time. ) Shower/Bathe Self (QC): 1 Upper Body Dressing (QC): 1 Lower Body Dressing (QC): 1 On/Off Footwear (QC): 1 Toileting Hygiene (QC): 1 Other Treatments Pt in bed, awakes. Requires multiple cues to respond to name. Pt does not engage in verbal communication, able to physically demonstrate desires through pressing HOB buttons, pushing back onto bed, and grabbing items. Pt able to sit EOB with max encouragement and max A x2, pushes torso into extension. Pt placed back into bed. Does not appropriately respond to cues. Pt encouraged to stand, completes task with max encouragement and [place] assist. Pt stands with max cues for upright positioning as pt's hips/ knees flexed: physical cues to shoulders and hips for upright positioning. Pt sits on commode with max cues, does not complete BM through ~2 min sit. Pt stands and gets to bed with min A. Pt then has BM in bed once laying on side. Pt requires TD for all ADL tasks for BM clean up. During clean up, pt adamantly resists assist. Pt rolls with TD (max A x2) for bed/ brief change and clean up. Skilled OT not rendered at this time based on pt's decreased problem solving and ability to follow cues/ PLOF cognitively (h/o dementia). Education OT Patient Education: Correct positioning, Purpose of tx/functional activities, Safety issues, Transfer techniques Teaching Recipient: Patient Teaching Methods: Demonstration, Discussion Response to Teaching: Unable to Return Demonstration, Unable to Comprehend, Reinforcement Needed OT Renewable Energy Division Manager Goals Renewable Energy Division Manager Goals 1=Demonstrate adherence to instructed precautions during ADL tasks. 2=Patient will verbalize/demonstrate understanding of assistive devices/modifi cations for ADL. 3=Patient will improve strength/tolerance for activity to enable patient to perform ADL's. OT Education/Plan Problem List/Assessment Assessment: No Skilled OT Needs ID'd Discharge Recommendations Plan/Recommendations: Discharge/Goals Met Therapy Discharge Recommendati: 24 Hour Supervision Treatment Plan/Plan of Care Treatment,Training & Education: Yes Patient would benefit from OT for education, treatment and training to promote independence in ADL's, mobility, safety and/or upper extremity function for ADL's. Plan of Care: OTHER (eval and d/c. ) Treatment Duration: Nov 24, 2019 Frequency: 1 time per week (eval and d/c. ) Rehab Potential: Fair Time/GCodes Start Time: 14:00 Stop Time: 14:35 Total Time Billed (hr/min): 35 Billed Treatment Time 1, EVM, ADL (35) D/c at this time. LEONARDO TILLMAN OTR Nov 24, 2019 16:05
[2019-11-24] MEDS ORDERED: HALOPERIDOL LACTATE 5 MG IM PRN (16:15)
[2019-11-24 16:22] VITALS: BP 117/69
--- NOTE | 2019-11-24 16:30 | NUR ---
Patient increasingly agitated, pulling at tubes, and trying to climb out of bed. Telephone orders to give 5mg IM Haldol q8h PRN received. 5mg Haldol pulled from stocked meds and given at this time. Will continue to monitor.
[2019-11-24] MEDS ORDERED: HALOPERIDOL 5 MG/ML (HALDOL) VIAL ONE ×2 (16:34→23:57)
[2019-11-24] MEDS: TAMSULOSIN 0.4 MG (FLOMAX) CAP PO SCH (18:19)
--- NOTE | 2019-11-24 20:15 | NUR ---
BEDSIDE REPORT RECEIVED FROM Kiran DAIGLE RN. THIS RN WILL ASSUME CARE OF PATIENT AT THIS TIME.
[2019-11-24 20:46] VITALS: BP 112/72
[2019-11-24] MEDS ORDERED: D5 NS 1000 ML IV SOLUTION 1,000 ML IV ONE (21:58)
--- NOTE | 2019-11-24 21:59 | NUR ---
patient's bs 76, pt is npo, NS is current iv fluid. this rn contacted dr. gifford about this patient's bs and npo status-orders received to dc NS & start pt on D5NS at 75ml/hr.
[2019-11-24] MEDS: D5 NS 1000 ML IV SOLUTION 1,000 ML IV SCH (22:04)
[2019-11-24 23:55] VITALS: BP 110/69
[2019-11-25] MEDS: HALOPERIDOL 5 MG/ML (HALDOL) VIAL IM PRN ×2 (00:29→12:14)
--- NOTE | 2019-11-25 02:34 | OPERATIVE REPORT ---
DATE OF SERVICE: 11/23/2019 PREOPERATIVE DIAGNOSIS: Constipation and large bowel obstruction. POSTOPERATIVE DIAGNOSIS: Colonic distention, constipation. PROCEDURE: Decompressive colonoscopy. SURGEON: Arlen Alston DO ANESTHESIA: Per MARKETING DATABASE CONSULTANT. ESTIMATED BLOOD LOSS: None. COMPLICATIONS: None. INDICATIONS: The patient is a 64-year-old male with distention of the colon with constipation. Consent was signed for decompressive colonoscopy. Risks and benefits were understood by family. DESCRIPTION OF PROCEDURE: The patient was taken to the endoscopy suite, placed in left lateral recumbent position. Timeout was performed. Digital rectal exam. There were no palpable polyps, masses or ulcerations. No stool in the rectal vault. The scope was inserted into the rectum and began to advance into the sigmoid, large amount of stool was present and lots of irrigation and suction . The scope was able to be passed by this and the colon was distended all the way up. The scope was continued to be advanced to the right colon where a significant amount of stool was present. Again, lots of irrigation was present and continued to be irrigated breaking it up as scope to be continued to be advanced all the way into the right colon when a large amount of fluid was irrigated into the right colon to assist with flushing of the stool. At this point, the scope was then slowly retracted back suctioning all the air, possible all the way from the right colon, all the way to the rectum where scope was then removed. The patient tolerated procedure well. His abdomen was found to be back to normal size. RECOMMENDATIONS: The patient to be started on GoLYTELY to see if we can get further clearance of the stool and we will follow up with abdominal x-rays. The patient may need further decompression with colonoscopy. Job ID: [id number] DocumentID: [id number] Dictated Date: 11/24/2019 16:40:29 Furrier Designer Date: 11/25/2019 02:33:52 Dictated By: ARLEN ALSTON DO [facility]OSPITALRachel
[2019-11-25 03:50] VITALS: BP 106/68
[2019-11-25] MEDS: TAMSULOSIN 0.4 MG (FLOMAX) CAP PO SCH ×2 (05:57→17:50)
[2019-11-25] MEDS: inSUlin ASPART (NovoLOG) 1 UNIT/0.01 ML (CHARGE PER UNIT) SC SCH ×4 (05:57→21:47)
[2019-11-25] MEDS: FUROSEMIDE 40 MG (LASIX) TAB PO SCH (05:57)
[2019-11-25 06:30] LABS: HEMOGLOBIN 11.7 G/DL (13.3-17.7); MEAN PLATELET VOLUME 8.6 FL (7.4-10.4); RED CELL DISTRIBUTION WIDTH 14.6 % (10.0-14.5); WHITE BLOOD COUNT 6.4 10^3/uL (4.3-11.0)
[2019-11-25 06:51] LABS: BUN/CREATININE RATIO 15; CALCIUM 7.6 MG/DL (8.5-10.1); CARBON DIOXIDE 19 MMOL/L (21-32); CHLORIDE 108 MMOL/L (98-107); CREATININE SERUM 0.68 MG/DL (0.60-1.30); GFR ESTIMATED > 60; GLUCOSE 91 MG/DL (70-105); MAGNESIUM 1.5 MG/DL (1.6-2.4); POTASSIUM 3.3 MMOL/L (3.6-5.0); SODIUM 136 MMOL/L (135-145)
--- NOTE | 2019-11-25 07:30 | Progress Note - Surgery ---
NAIMAGI MED STUDENT 11/25/19 0729: Subjective Date Seen by a Provider: Nov 25, 2019 Time Seen by a Provider: 07:10 Subjective/Events-last exam Pt appeared with improved comfort from yesterday. Abdomen still firm, but decrease in distention was noted. No tenderness to palpation noted. Has had multiple BM yesterday and overnight. Mainly loose stools. Pt unable to give much history due to dementia. Denies nausea, vomiting, fever, chills, sob, chest pain. Review of Systems General: No Chills, No Night Sweats HEENT: No Head Aches, No Visual Changes Pulmonary: No Dyspnea, No Cough Cardiovascular: No: Chest Pain, Palpitations Gastrointestinal: No: Nausea, Vomiting Genitourinary: No Dysuria, No Frequency Musculoskeletal: No: neck pain, shoulder pain Neurological: No: Weakness, Numbness Objective Exam Vital Signs Date Time Temp Pulse Resp B/P (MAP) Pulse Ox O2 Delivery O2 Flow Rate FiO2 11/25/19 03:50 36.3 86 17 106/68 (81) 97 Room Air 11/25/19 01:00 120 11/24/19 23:55 36.4 94 18 110/69 (83) 95 Room Air 11/24/19 21:00 Room Air 11/24/19 20:46 36.7 97 17 112/72 (85) 97 Room Air 11/24/19 19:30 Room Air 11/24/19 19:00 140 11/24/19 16:22 35.6 101 15 117/69 (85) 92 Room Air 11/24/19 13:20 73 11/24/19 12:00 36.3 68 20 84/52 (63) 97 Room Air 11/24/19 09:00 Room Air 11/24/19 08:00 36.6 80 20 106/74 (85) 99 Room Air 11/24/19 07:50 66 I & O 11/25/19 07:00 Intake Total 1250 ml Balance 1250 ml Capillary Refill : Less Than 3 Seconds General Appearance: No Apparent Distress, WD/WN HEENT: PERRL/EOMI, Normal ENT Inspection Neck: Non Tender, Supple Respiratory: Chest Non Tender, Lungs Clear, Normal Breath Sounds, No Accessory Muscle Use, No Respiratory Distress Cardiovascular: Regular Rate, Rhythm; No No Edema (Patient has slightly edematous bilateral lower extremties); No Murmur Peripheral Pulses: 2+ Radial Pulses (R) Gastrointestinal: non tender, distended Extremity: Non Tender, No Calf Tenderness Neurologic/Psychiatric: Alert, No Motor/Sensory Deficits, Other (dementia) Skin: Normal Color, Warm/Dry Results Lab Laboratory Tests 11/25/19 06:14: White Blood Count 6.4, Red Blood Count 3.81L, Hemoglobin 11.7L, Hematocrit 35L, Mean Corpuscular Volume 92, Mean Corpuscular Hemoglobin 31, Mean Corpuscular Hemoglobin Concent 33, Red Cell Distribution Width 14.6H, Platelet Count 374, Mean Platelet Volume 8.6, Sodium Level 136, Potassium Level 3.3L, Chloride Level 108H, Carbon Dioxide Level 19L, Anion Gap 9, Blood Urea Nitrogen 10, Creatinine 0.68, Estimat Glomerular Filtration Rate > 60, BUN/Creatinine Ratio 15, Glucose Level 91, Calcium Level 7.6L, Magnesium Level 1.5L Assessment/Plan Assessment/Plan Assessment/Plan Bowel obstruction Constipation NPO Repeat CT today Await bowel function ARLEN ALSTON DO 11/25/19 0903: Subjective Subjective/Events-last exam Laying down. +bm and flatus. Abdomen still distended. No complaints of pain, resting with sitter. Does not speak much. Objective Exam General Appearance: No Apparent Distress, WD/WN HEENT: PERRL/EOMI, Normal ENT Inspection Neck: Non Tender, Supple Respiratory: Chest Non Tender, No Accessory Muscle Use, No Respiratory Distress Cardiovascular: Regular Rate, Rhythm Gastrointestinal: non tender, distended (less) Extremity: Non Tender, No Calf Tenderness Neurologic/Psychiatric: Alert, No Motor/Sensory Deficits Skin: Normal Color, Warm/Dry Lymphatic: No Adenopathy Assessment/Plan Assessment/Plan Assessment/Plan constipation colonic distention kub this am increase activity likely clears Supervisory-Addendum Brief Verification & Attestation Participated in pt care: history, MDM, physical Personally performed: exam, history, MDM, supervision of care Care discussed with: Medical Student Procedures: n/a Results interpretation: Verified all documentation Verification and Attestation of Medical Student E/M Service A medical student performed and documented this service in my presence. I reviewed and verified all information documented by the medical student and made modifications to such information, when appropriate. I personally performed the physical exam and medical decision making. Arlen Alston, Nov 25, 2019,09:02 GI MCNAMARA MED STUDENT Nov 25, 2019 07:29 ARLEN ALSTON DO Nov 25, 2019 09:03
[2019-11-25 08:00] VITALS: BP 122/78
[2019-11-25] MEDS: SPIRONOLACTONE 25 MG (ALDACTONE) TAB PO SCH (09:00)
[2019-11-25] MEDS: BENZTROPINE MESYLATE 1 MG (COGENTIN) TAB PO SCH ×2 (09:01→21:47)
[2019-11-25] MEDS: APIXABAN 5 MG (ELIQUIS) TABLET PO SCH ×2 (09:02→21:47)
[2019-11-25] MEDS: MAGNESIUM 1 GM/100 ML IVPB 100 ML IV SCH ×2 (09:02→09:25)
[2019-11-25] MEDS: POTASSIUM CL 10MEQ/50ML IVPB 50 ML IV SCH ×3 (09:03→11:42)
[2019-11-25] MEDS: risperiDONE 1 MG (RisperDAL) TAB PO SCH ×2 (09:24→21:47)
--- NOTE | 2019-11-25 10:35 | Physical Therapy Progress Note ---
Therapy Progress Note Patient sedated due to increase agitation and pulling on IV tubing. Patient currently has a sitter. Will attempt later today. MAYELIN HARRY PT Nov 25, 2019 10:35
[2019-11-25] MEDS: D5 NS 1000 ML IV SOLUTION 1,000 ML IV SCH (11:06)
[2019-11-25 12:00] VITALS: BP 114/79
--- NOTE | 2019-11-25 12:01 | Progress Note ---
ALYSIA LUTZ MED STUDENT 11/25/19 1200: Subjective Date Seen by a Provider: Nov 25, 2019 Time Seen by a Provider: 08:40 Subjective/Events-last exam Pt does not appear to be in any distress or pain this morning. He states that he has he does not have any pain. States that he has not had a bowel movement yet today. Pt states that stomach has feeling of fullness. Abdomen is still distended, but appears to be less so than yesterday. Abdomen is still somewhat firm but less so than yesterday. He states that he has not eaten anything. Focused Exam Sepsis Stage: Ruled Out Reason for ruling out sepsis: No septic symptoms noted Respiratory: Chest Non Tender, Lungs Clear, Normal Breath Sounds, No Accessory Muscle Use, No Respiratory Distress Cardiovascular: Regular Rate, Rhythm, No Edema, No Gallop, No JVD, No Murmur, Normal Peripheral Pulses Peripheral Pulses: 2+ Radial Pulses (R) Skin: normal color, warm/dry Objective Exam Last Set of Vital Signs Vital Signs Date Time Temp Pulse Resp B/P (MAP) Pulse Ox O2 Delivery O2 Flow Rate FiO2 11/25/19 09:30 Room Air 11/25/19 08:00 36.4 80 20 122/78 (93) 96 Capillary Refill : Less Than 3 Seconds I&O Intake and Output 11/25/19 00:00 Intake Total 1250 ml Balance 1250 ml Intake Oral 0 ml IV Total 1250 ml # Voids 10 # Bowel Movements 10 General: Alert HEENT: Atraumatic Neck: Supple, No JVD Lungs: Clear to Auscultation Heart: Regular Rate, No Murmurs Abdomen: Normal Bowel Sounds (More bowel sounds noted today than previous days), Other (Abdomen is distended and firm, no pain on palpation) Extremities: No Clubbing, No Cyanosis, No Edema Skin: No Rashes Psych/Mental Status: Other (Dementia) Results Lab Laboratory Tests 11/25/19 06:14: White Blood Count 6.4, Red Blood Count 3.81L, Hemoglobin 11.7L, Hematocrit 35L, Mean Corpuscular Volume 92, Mean Corpuscular Hemoglobin 31, Mean Corpuscular Hemoglobin Concent 33, Red Cell Distribution Width 14.6H, Platelet Count 374, Mean Platelet Volume 8.6, Sodium Level 136, Potassium Level 3.3L, Chloride Level 108H, Carbon Dioxide Level 19L, Anion Gap 9, Blood Urea Nitrogen 10, Creatinine 0.68, Estimat Glomerular Filtration Rate > 60, BUN/Creatinine Ratio 15, Glucose Level 91, Calcium Level 7.6L, Magnesium Level 1.5L Assessment/Plan Assessment/Plan Assess & Plan/Chief Complaint Bowel Obstruction 1. PEG administered to patient, who appears to have had multiple bowel movements since. 2. Colonoscopy was attempted 3. Continue patient on NPO until blockage passes 4. Continue to hydrate Patient IV due to NPO status Hypokalemia 1. Prescribe IV K to help ensure GI motility 2. Continue to monitor patients K with morning labs Dementia 1. Continue patients psych meds 2. Monitor patient for any changes or worsening of his mental status DVT Prophylaxis 1. Continue patient on Apixaban for prophylaxis Final Diagnosis Bowel Obstruction Diagnosis/Problems Diagnosis/Problems (1) Colonic obstruction (2) Dementia (3) DVT prophylaxis (4) Hypokalemia Supervisory-Addendum Brief Verification & Attestation Participated in pt care: history, physical Personally performed: exam, history Care discussed with: other (Attending) Procedures: n/a ARIANA SHARIF MD 11/25/19 1500: Supervisory-Addendum Brief Verification & Attestation Participated in pt care: history, MDM, physical Personally performed: exam, history, MDM Care discussed with: Medical Student Procedures: n/a Verification and Attestation of Medical Student E/M Service A medical student performed and documented this service. I reviewed and verified all information documented by the medical student and made modifications to such information, when appropriate. I personally performed my own history, physical exam and medical decision making. Ariana Sharif, Nov 25, 2019,15:00 ALYSIA LUTZ MED STUDENT Nov 25, 2019 12:00 ARIANA SHARIF MD Nov 25, 2019 15:00
--- NOTE | 2019-11-25 14:39 | Physical Therapy Progress Note ---
Therapy Progress Note Patient received medication for agitation this p.m. Patient is sedated and unable to actively participate with therapy. MAYELIN HARRY PT Nov 25, 2019 14:39
[2019-11-25 15:25] VITALS: BP 101/66
--- NOTE | 2019-11-25 15:52 | Diagnostic Imaging Report ---
EXAMINATION: Supine abdomen at 02:17 p.m. INDICATION: Abdominal distention. FINDINGS: The prior exam of 11/24/2019 noted that both the large and small bowel were distended by gas. In the interval since the prior exam, it appears that an NG line has been inserted. The line however seems to be looped on itself in the region of the distal esophagus. However, in my conversation with patient's nurse there is no NG line in place. There is still considerable distention of both the large and small bowel by gas. When compared to the prior study, there has been no significant change. There is no mass or organomegaly appreciated. There is no obvious pneumoperitoneum. The osseous structures are intact. IMPRESSION: 1. There is persistent distention of large and small bowel by gas. Overall, there has been no significant change since the prior exam. A follow up study would be recommended for continued evaluation. 2. The radiopaque line overlying the distal esophagus is of uncertain etiology. Report was called to patient's nurse at 3:38 p.m., by nikolay (for JERICA). Dictated by: Dictated on workstation # [id number]
[2019-11-25 19:27] VITALS: BP 109/71
[2019-11-26] VITALS (7 sets, daily range): BP systolic 95–132; BP diastolic 65–79
[2019-11-26] MEDS: D5 NS 1000 ML IV SOLUTION 1,000 ML IV SCH ×2 (02:05→15:41)
[2019-11-26] MEDS: FUROSEMIDE 40 MG (LASIX) TAB PO SCH (06:25)
[2019-11-26] MEDS: TAMSULOSIN 0.4 MG (FLOMAX) CAP PO SCH ×2 (06:25→18:37)
[2019-11-26 06:26] LABS: HEMOGLOBIN 11.3 G/DL (13.3-17.7); MEAN PLATELET VOLUME 9.2 FL (7.4-10.4); RED CELL DISTRIBUTION WIDTH 14.2 % (10.0-14.5)
[2019-11-26 06:41] LABS: BUN/CREATININE RATIO 15; CALCIUM 7.4 MG/DL (8.5-10.1); CARBON DIOXIDE 21 MMOL/L (21-32); CHLORIDE 108 MMOL/L (98-107); CREATININE SERUM 0.62 MG/DL (0.60-1.30); GFR ESTIMATED > 60; GLUCOSE 86 MG/DL (70-105); MAGNESIUM 1.6 MG/DL (1.6-2.4); SODIUM 137 MMOL/L (135-145)
[2019-11-26] MEDS: inSUlin ASPART (NovoLOG) 1 UNIT/0.01 ML (CHARGE PER UNIT) SC SCH ×4 (06:48→21:32)
--- NOTE | 2019-11-26 07:48 | Progress Note - Surgery ---
NAIMAGI MED STUDENT 11/26/19 0748: Subjective Date Seen by a Provider: Nov 26, 2019 Time Seen by a Provider: 07:20 Subjective/Events-last exam Pt abdomen is slightly improved from yesterday with a softer feel and improved distention. Reports tenderness to palpation during abdominal exam. Pt has had multiple watery stools overnight. Denies nausea, vomiting, fever, chills, sob, chest pain. Review of Systems General: No Chills, No Night Sweats HEENT: No Head Aches, No Visual Changes Pulmonary: No Dyspnea, No Cough Cardiovascular: No: Chest Pain, Palpitations Gastrointestinal: Abdominal Pain; No: Nausea, Vomiting Genitourinary: No Dysuria, No Frequency Musculoskeletal: No: neck pain, shoulder pain Neurological: No: Weakness, Numbness Objective Exam Vital Signs Date Time Temp Pulse Resp B/P (MAP) Pulse Ox O2 Delivery O2 Flow Rate FiO2 11/26/19 03:59 36.6 84 16 121/68 (85) 94 Room Air 11/26/19 01:00 80 11/26/19 00:00 36.4 82 16 132/73 (92) 95 Room Air 11/25/19 21:40 Room Air 11/25/19 19:27 36.6 88 18 109/71 (84) 96 Room Air 11/25/19 19:00 90 11/25/19 15:25 36.2 85 18 101/66 (78) 95 Room Air 11/25/19 13:03 48 11/25/19 12:00 36.5 91 17 114/79 (91) 94 Room Air 11/25/19 09:30 Room Air 11/25/19 08:00 36.4 80 20 122/78 (93) 96 Room Air Capillary Refill : Less Than 3 Seconds General Appearance: No Apparent Distress, WD/WN HEENT: PERRL/EOMI, Normal ENT Inspection Neck: Non Tender, Supple Respiratory: Chest Non Tender, Lungs Clear, Normal Breath Sounds, No Accessory Muscle Use, No Respiratory Distress Cardiovascular: Regular Rate, Rhythm, No Edema, No Gallop, No JVD, No Murmur, Normal Peripheral Pulses Peripheral Pulses: 2+ Radial Pulses (R) Gastrointestinal: abnormal bowel sounds (RARE, HIGH-PITCHED BOWEL SOUNDS NOTED IN LEFT MID ABDOMEN), distended (BUT NOT HARD/FIRM), tenderness, other (PT DOES NOT GRIMACE OR WITHDRAW ON PALPATION OF ABDOMEN) Extremity: Non Tender, No Calf Tenderness Neurologic/Psychiatric: Alert, No Motor/Sensory Deficits Skin: Normal Color, Warm/Dry Lymphatic: No Adenopathy Results Lab Laboratory Tests 11/25/19 10:50: Glucometer 108 11/25/19 15:30: Glucometer 89 11/26/19 05:15: White Blood Count 4.0L, Red Blood Count 3.60L, Hemoglobin 11.3L, Hematocrit 33L, Mean Corpuscular Volume 92, Mean Corpuscular Hemoglobin 31, Mean Corpuscular Hemoglobin Concent 34, Red Cell Distribution Width 14.2, Platelet Count 343, Mean Platelet Volume 9.2, Sodium Level 137, Potassium Level 3.0L, Chloride Level 108H, Carbon Dioxide Level 21, Anion Gap 8, Blood Urea Nitrogen 9, Creatinine 0.62, Estimat Glomerular Filtration Rate > 60, BUN/Creatinine Ratio 15, Glucose Level 86, Calcium Level 7.4L, Magnesium Level 1.6 Assessment/Plan Assessment/Plan Assessment/Plan constipation colonic distention repeat kub increase activity likely clears ARLEN ALSTON DO 11/26/19 1641: Subjective Subjective/Events-last exam Patient laying in bed. Still having flatus and bowel movements. Slight discomfort at times. Patient limited participation in discussion/exam. Denies nausea vomiting fever sweats chills shortness of breath or chest pain. Abdominal x ray showing diffuse distention of small and large bowel Objective Exam General Appearance: No Apparent Distress, WD/WN HEENT: PERRL/EOMI, Normal ENT Inspection Neck: Non Tender, Supple Respiratory: Chest Non Tender, No Accessory Muscle Use, No Respiratory Distress Cardiovascular: Regular Rate, Rhythm, No Edema Gastrointestinal: distended (about same as yesterday), tenderness, other (does not seem to have pain with palpation) Extremity: Non Tender, No Calf Tenderness Neurologic/Psychiatric: Alert; No Oriented x3; No Motor/Sensory Deficits Skin: Normal Color, Warm/Dry Lymphatic: No Adenopathy Assessment/Plan Assessment/Plan Assessment/Plan constipation colonic distention start clears increase activity PT may need repeat decompressive colonoscopy Supervisory-Addendum Brief Verification & Attestation Participated in pt care: history, MDM, physical Personally performed: exam, history, MDM, supervision of care Care discussed with: Medical Student Procedures: n/a Results interpretation: Verified all documentation Verification and Attestation of Medical Student E/M Service A medical student performed and documented this service in my presence. I reviewed and verified all information documented by the medical student and made modifications to such information, when appropriate. I personally performed the physical exam and medical decision making. Arlen Alston, Nov 26, 2019,16:41 GI MCNAMARA MED STUDENT Nov 26, 2019 07:48 ARLEN ALSTON DO Nov 26, 2019 16:41
[2019-11-26] MEDS: risperiDONE 1 MG (RisperDAL) TAB PO SCH ×2 (09:24→20:24)
[2019-11-26] MEDS: BENZTROPINE MESYLATE 1 MG (COGENTIN) TAB PO SCH ×2 (09:25→20:24)
[2019-11-26] MEDS: APIXABAN 5 MG (ELIQUIS) TABLET PO SCH ×2 (09:25→20:24)
[2019-11-26] MEDS: SPIRONOLACTONE 25 MG (ALDACTONE) TAB PO SCH (09:25)
--- NOTE | 2019-11-26 10:48 | Progress Note - Hospitalist ---
Subjective HPI/CC On Admission Date Seen by Provider: Nov 26, 2019 Time Seen by Provider: 09:00 Subjective/Events-last exam patient appears to be in no acute distress sleeping. Staff report when awake he tries to get out of bed with mild agitation. He apparently has long-standing advanced dementia with inability to communicate. He had a formed bowel movement last night after multiple stools yesterday and remains nothing by mouth status. Staff report no current care problems. Objective Exam Vital Signs Vital Signs Date Time Temp Pulse Resp B/P (MAP) Pulse Ox O2 Delivery O2 Flow Rate FiO2 11/26/19 08:12 Room Air 11/26/19 07:46 36.9 88 20 110/70 (83) 95 Capillary Refill : Less Than 3 Seconds General Appearance: No Apparent Distress, Chronically ill, Obese Respiratory: No Accessory Muscle Use, No Respiratory Distress, Other (sonorous rhonchi noted throughout without wheezes or rales) Cardiovascular: Regular Rate, Rhythm, Other (somewhat distant heart tones noted difficult to hear over noises or respiration.) Gastrointestinal: Normal Bowel Sounds, No Organomegaly, No Pulsatile Mass, Non Tender, Soft Extremity: No Pedal Edema Results/Procedures Lab Laboratory Tests 11/26/19 05:15 Patient resulted labs reviewed. Assessment/Plan Assessment and Plan Assess & Plan/Chief Complaint A/P 1. Fecal impaction resolved and asked staff to discuss advancing diet but only after discussing with surgery. Likely discharge on Thursday. 2. Advanced dementia with agitated behavior continue current medication. ITZEL SOLIS MD Nov 26, 2019 10:48
--- NOTE | 2019-11-26 12:25 | Diagnostic Imaging Report ---
INDICATION: Abdominal distention Abdominal film obtained at 1141 a.m. Diffuse dilatation of large and small bowel loops is seen, which may represent severe ileus or distal obstruction. The findings have not changed compared to yesterday. IMPRESSION: Diffuse distention of large and small bowel loops again noted, without significant change compared to the previous day. The findings may represent severe ileus or distal obstruction. Continued follow-up suggested. Dictated by: Dictated on workstation # [id number]
[2019-11-26] MEDS ORDERED: D5 LR IV SOLUTION 1,000 ML IV SCH (17:30)
[2019-11-26] MEDS ORDERED: oxyCODONE/APAP 10/325MG (PERCOCET 10) TABLET PO PRN (17:30)
[2019-11-26] MEDS ORDERED: MEASLES,MUMPS,RUBELLA 1 EA INJ SC ONE (17:30)
[2019-11-26] MEDS ORDERED: ONDANSETRON 4 MG/2 ML (SDV) Z0FRAN IVP PRN (17:30)
[2019-11-26] MEDS ORDERED: OXYTOCIN PRE-MIX DRIP 500 ML IV SCH (17:30)
[2019-11-26] MEDS ORDERED: KETOROLAC 30 MG/ML VIAL IVP SCH (17:30)
[2019-11-26] MEDS ORDERED: TETANUS,DIPTH,PERTUSS P/F (BOOSTRIX) 0.5 ML VIAL IM ONE (17:30)
[2019-11-26] MEDS ORDERED: IBUPROFEN 800 MG (MOTRIN) TAB PO SCH (18:00)
[2019-11-26] MEDS ORDERED: DOCUSATE SODIUM 100 MG (COLACE) CAP PO SCH ×2 (21:00)
[2019-11-27] VITALS (9 sets, daily range): BP systolic 102–165; BP diastolic 65–106
[2019-11-27] MEDS: D5 NS 1000 ML IV SOLUTION 1,000 ML IV SCH ×2 (04:54→17:54)
[2019-11-27] MEDS: inSUlin ASPART (NovoLOG) 1 UNIT/0.01 ML (CHARGE PER UNIT) SC SCH ×4 (05:43→20:17)
[2019-11-27] MEDS: FUROSEMIDE 40 MG (LASIX) TAB PO SCH (05:53)
[2019-11-27] MEDS: TAMSULOSIN 0.4 MG (FLOMAX) CAP PO SCH ×2 (05:53→17:53)
--- NOTE | 2019-11-27 07:50 | Progress Note - Surgery ---
GI MCNAMARA MED STUDENT 11/27/19 0750: Subjective Date Seen by a Provider: Nov 27, 2019 Time Seen by a Provider: 07:30 Subjective/Events-last exam Pt was alert in NAD sitting up in bed. Reports no abdominal pain. No tenderness to palpation. Abdomen remains distended with little improvement from yesterday. Nurse reports he had 1 BM overnight. Denies n/v, fever, chills, sob, chest pain. Review of Systems General: No Chills, No Night Sweats HEENT: No Head Aches, No Visual Changes Pulmonary: No Dyspnea, No Cough Cardiovascular: No: Chest Pain, Palpitations Gastrointestinal: No: Nausea, Vomiting, Abdominal Pain Genitourinary: No Dysuria, No Frequency Musculoskeletal: No: neck pain, shoulder pain Neurological: No: Weakness, Numbness Objective Exam Vital Signs Date Time Temp Pulse Resp B/P (MAP) Pulse Ox O2 Delivery O2 Flow Rate FiO2 11/27/19 07:00 103 11/27/19 04:28 37.0 88 20 120/72 (88) 96 Room Air 11/27/19 01:00 90 11/26/19 23:50 36.6 104 20 111/76 (88) 97 Room Air 11/26/19 20:40 Room Air 11/26/19 20:00 37.0 100 20 115/79 (91) 96 Room Air 11/26/19 19:00 90 11/26/19 16:00 36.8 82 20 95/65 (75) 96 Room Air 11/26/19 12:46 118 11/26/19 12:07 36.6 92 18 108/69 (82) 94 Room Air 11/26/19 08:12 Room Air I & O 11/27/19 07:00 Intake Total 3800 ml Balance 3800 ml Capillary Refill : Less Than 3 Seconds General Appearance: No Apparent Distress, WD/WN HEENT: PERRL/EOMI, Normal ENT Inspection Neck: Non Tender, Supple Respiratory: Chest Non Tender, No Accessory Muscle Use, No Respiratory Distress Cardiovascular: Regular Rate, Rhythm, No Edema Peripheral Pulses: 2+ Radial Pulses (R) Gastrointestinal: distended (about same as yesterday), other (does not seem to have pain with palpation) Extremity: Non Tender, No Calf Tenderness Neurologic/Psychiatric: Alert; No Oriented x3; No Motor/Sensory Deficits Skin: Normal Color, Warm/Dry Lymphatic: No Adenopathy Assessment/Plan Assessment/Plan Assessment/Plan constipation colonic distention start clears increase activity PT may need repeat decompressive colonoscopy repeat imaging ARLEN ALSTON DO 11/27/19 1013: Subjective Subjective/Events-last exam No real response from patient, blank stare. Does not appear to be in pain. Having bowel function. Distention about the same. No n/v fever sweats chill shortness of breath or chest pain. Objective Exam General Appearance: No Apparent Distress, WD/WN HEENT: PERRL/EOMI, Normal ENT Inspection Neck: Non Tender, Supple Respiratory: Chest Non Tender, No Accessory Muscle Use, No Respiratory Distress Cardiovascular: Regular Rate, Rhythm, No Edema Gastrointestinal: distended (about same ) Extremity: Non Tender, No Calf Tenderness Neurologic/Psychiatric: Alert; No Oriented x3; No Motor/Sensory Deficits Skin: Normal Color, Warm/Dry Lymphatic: No Adenopathy Assessment/Plan Assessment/Plan Assessment/Plan constipation colonic distention hypokalemia hypomagnesemia replace electrolytes clear liquids kub this am Supervisory-Addendum Brief Verification & Attestation Participated in pt care: history, MDM, physical Personally performed: exam, history, MDM, supervision of care Care discussed with: Medical Student Procedures: n/a Results interpretation: Verified all documentation Verification and Attestation of Medical Student E/M Service A medical student performed and documented this service in my presence. I reviewed and verified all information documented by the medical student and made modifications to such information, when appropriate. I personally performed the physical exam and medical decision making. Arlen Alston, Nov 27, 2019,10:13 GI MCNAMARA MED STUDENT Nov 27, 2019 07:50 ARLEN ALSTON DO Nov 27, 2019 10:13
[2019-11-27] MEDS: APIXABAN 5 MG (ELIQUIS) TABLET PO SCH ×2 (09:11→20:17)
[2019-11-27] MEDS: risperiDONE 1 MG (RisperDAL) TAB PO SCH ×2 (09:11→20:17)
[2019-11-27] MEDS: SPIRONOLACTONE 25 MG (ALDACTONE) TAB PO SCH (09:11)
[2019-11-27] MEDS: BENZTROPINE MESYLATE 1 MG (COGENTIN) TAB PO SCH ×2 (09:11→20:17)
[2019-11-27 09:50] LABS: HEMOGLOBIN 12.2 G/DL (13.3-17.7); MEAN PLATELET VOLUME 8.9 FL (7.4-10.4); RED CELL DISTRIBUTION WIDTH 14.2 % (10.0-14.5); WHITE BLOOD COUNT 5.4 10^3/uL (4.3-11.0)
[2019-11-27 10:07] LABS: BUN/CREATININE RATIO 15; CALCIUM 7.4 MG/DL (8.5-10.1); CARBON DIOXIDE 17 MMOL/L (21-32); CHLORIDE 106 MMOL/L (98-107); CREATININE SERUM 0.62 MG/DL (0.60-1.30); GFR ESTIMATED > 60; GLUCOSE 112 MG/DL (70-105); MAGNESIUM 1.4 MG/DL (1.6-2.4); PHOSPHORUS 2.7 MG/DL (2.3-4.7); POTASSIUM 3.1 MMOL/L (3.6-5.0); SODIUM 133 MMOL/L (135-145)
[2019-11-27] MEDS ORDERED: MAGNESIUM 1 GM/100 ML IVPB 100 ML IV ONE (10:15)
--- NOTE | 2019-11-27 11:06 | Progress Note - Hospitalist ---
Subjective HPI/CC On Admission Date Seen by Provider: Nov 27, 2019 Time Seen by Provider: 08:00 Subjective/Events-last exam patient sleeping soundly due to dementia and intermittent agitation requiring one-on-one care. Patient less agitated last night appears to be in no acute distress but did not wake during evaluation. Objective Exam Vital Signs Vital Signs Date Time Temp Pulse Resp B/P (MAP) Pulse Ox O2 Delivery O2 Flow Rate FiO2 11/27/19 08:00 36.8 98 18 116/79 (91) 97 Room Air Capillary Refill : Less Than 3 Seconds General Appearance: No Apparent Distress, Obese Respiratory: No Accessory Muscle Use, No Respiratory Distress, Other (sonorous rhonchi without wheezes or rales noted throughout) Cardiovascular: Regular Rate, Rhythm, No Edema, No Gallop, No JVD, No Murmur, Normal Peripheral Pulses Gastrointestinal: Other (abdomen more distended today still relatively soft bowel sounds not appreciated no reaction to palpation patient continuing to sleep) Results/Procedures Lab Laboratory Tests 11/27/19 09:34 Patient resulted labs reviewed. Assessment/Plan Assessment and Plan Assess & Plan/Chief Complaint A/P 1. Fecal impaction resolved ileus more likely then obstruction but will defer to surgery. Patient appears to be more distended today KUB pending.no ev idence for pain. 2. Advanced dementia with agitated behavior continue current medication. ITZEL SOLIS MD Nov 27, 2019 11:06
[2019-11-27] MEDS: POTASSIUM CL 10MEQ/50ML IVPB 50 ML IV SCH ×4 (12:13→15:35)
--- NOTE | 2019-11-27 12:20 | Diagnostic Imaging Report ---
EXAM: ABDOMEN/KUB 1VIEW INDICATION: Abdominal distention. COMPARISON: Abdominal radiograph 11/26/2019. FINDINGS: Again seen are multiple dilated loops of gaseous filled small bowel and colon throughout the abdomen. Surgical clips RUQ. No pneumatosis or portal venous gas is identified. IMPRESSION: Persistent diffusely gaseously dilated loops of small bowel and colon throughout the abdomen, similar to the prior exam. Dictated by: Dictated on workstation # [id number]
--- NOTE | 2019-11-27 18:30 | NUR ---
patient sitter notified this RN of increased patient agitation. upon assessment patient is yelling mumbled words at this RN and PCT, pulling at his IV and pulling at his IV tubing. when trying to reorientate patient he started to point the IV tubing and his fingers in a gun shape at this RN and PCT staying "boom boom". patient then pulled at [employer] name mila on her shirt. verbal reorientation not working at this time, PRN Haldol administered IM in left deltoid
[2019-11-27] MEDS: HALOPERIDOL 5 MG/ML (HALDOL) VIAL IM PRN (18:37)
[2019-11-27] MEDS ORDERED: LORazepam INJ 2 MG/ML (ATIVAN) VIAL IVP PRN (21:15)
[2019-11-27] MEDS ORDERED: HALOPERIDOL 5 MG/ML (HALDOL) VIAL IM ONE (21:15)
--- NOTE | 2019-11-27 21:24 | NUR ---
pt increasingly agitated while doing bed change, this nurse notified by tele campus monitor that pt pulse in the 140s-150s. blood pressure obtained read at 165/105. 5mg haldol given 2 hours ago by day nurse. dr fragoso notified of the above, ordered to give one time 5mg haldol now, and ordered 2mg IV ativan q6 prn
[2019-11-27] MEDS ORDERED: FUROSEMIDE 40 MG/4 ML INJ (LASIX) ONE (22:26)
[2019-11-27] MEDS ORDERED: FUROSEMIDE 40 MG/4 ML INJ (LASIX) IVP ONE (22:30)
--- NOTE | 2019-11-27 22:30 | NUR ---
2202- TELE SOFTWARE PROJECT MANAGER CALL THIS NURSE TO NOTIFY PT TELE HAS NOISY SIGNALS AND IS ALERTING VFIB. THIS NURSE WENT TO PT'S ROOM. PT RESTING WITH EYES CLOSED, NO LONGER AGITATED. TELE ADJUSTED AND SHOWED HEART RATE AROUND 140S, BUT TELE STARTED SHOWING NOISY SIGNAL AND NOT PICKING UP A HEART RATE. EKG DONE PER PROTOCOL, EKG READ ATRIAL FIBRILLATION V-RATE 116-129. PT MAKING GARGLING NOISES, LUNG SOUNDS WERE COARSE WHEN AUSCULTATED. B/P AROUND 113/60S. HEART RATE PER VITALS CART WAS BETWEEN 100-120S 2222- DR SOLIS CALLED TO EXPRESS CONCERN OVER THE ELEVATED HEART THAT HAS NOT DECREASED SINCE THIS NURSE CALLED HIM AT 2111, WELL CONCERN OVER WHAT THIS NURSE WAS TOLD BY TELE SOFTWARE PROJECT MANAGER, AND WHAT THE EKG READ. DR SOLIS ORDERED TO DC TELE. THIS NURSE THEN EXPRESSED CONCERN REGARDING PT COARSE LUNG SOUNDS, ASKED IF DR WOULD LIKE TO ORDER LASIX. DR SOLIS SAID "WELL HE'S COMFORT CARE', THIS NURSE CLARIFIED THAT THE PT WAS NOT COMFORT CARE, DR SOLIS CONFIRMED WITH THIS NURSE IF IT WAS THE PT WITH ADVANCED DEMENTIA AND COLONIC OBSTRUCTION, THIS NURSE TOLD DR IT IS THAT PT AND HE IS NOT ON COMFORT CARE, DR SOLIS REPLIED "HE SHOULD BE." THIS NURSE TOLD DR THAT PT IS FULL CODE. ORDERED TO GIVE 20MG IV LASIX ONCE. TO DC FLUIDS AND DC TELEMETRY. WHEN GIVING LASIX, PT OPENED EYES, TO REACH FOR TELE ETC, DID NOT ANSWER QUESTIONS ABOUT HOW HE IS FEELING. HEART RATE CONTINUOUS TO BE AT 100-120 PER VITALS CART.BLOOD PRESSURE AROUND 130S/80S. WILL CONTINUE TO MONITOR.
[2019-11-28] VITALS (7 sets, daily range): BP systolic 94–134; BP diastolic 66–90
[2019-11-28 05:00] LABS: HEMOGLOBIN 12.3 G/DL (13.3-17.7); MEAN PLATELET VOLUME 8.5 FL (7.4-10.4); RED CELL DISTRIBUTION WIDTH 13.6 % (10.0-14.5); WHITE BLOOD COUNT 10.2 10^3/uL (4.3-11.0)
[2019-11-28 05:27] LABS: BUN/CREATININE RATIO 15; CALCIUM 7.5 MG/DL (8.5-10.1); CARBON DIOXIDE 18 MMOL/L (21-32); CHLORIDE 104 MMOL/L (98-107); CREATININE SERUM 0.67 MG/DL (0.60-1.30); GFR ESTIMATED > 60; GLUCOSE 109 MG/DL (70-105); MAGNESIUM 1.4 MG/DL (1.6-2.4); PHOSPHORUS 2.8 MG/DL (2.3-4.7); POTASSIUM 3.1 MMOL/L (3.6-5.0); SODIUM 133 MMOL/L (135-145)
[2019-11-28] MEDS: inSUlin ASPART (NovoLOG) 1 UNIT/0.01 ML (CHARGE PER UNIT) SC SCH ×4 (05:29→20:03)
[2019-11-28] MEDS: TAMSULOSIN 0.4 MG (FLOMAX) CAP PO SCH ×2 (06:55→18:54)
[2019-11-28] MEDS: FUROSEMIDE 40 MG (LASIX) TAB PO SCH (06:55)
--- NOTE | 2019-11-28 07:20 | NUR ---
pt right calf red, swollen, hot, a huge change within hours. dr pastor notified, no new orders at this time
--- NOTE | 2019-11-28 07:35 | Progress Note - Surgery ---
GI MCNAMARA MED STUDENT 11/28/19 0735: Subjective Date Seen by a Provider: Nov 28, 2019 Time Seen by a Provider: 07:00 Subjective/Events-last exam Pt sleeping and difficult to arouse this morning. Abdomen remained distended but no tenderness noted with exam. No fever, chills, sob, chest tenderness noted. Objective Exam Vital Signs Date Time Temp Pulse Resp B/P (MAP) Pulse Ox O2 Delivery O2 Flow Rate FiO2 11/28/19 07:23 37.1 91 16 94/68 (77) 96 Room Air 11/28/19 04:00 37.2 98 22 103/69 (80) 93 Room Air 11/28/19 00:00 37.1 100 24 131/90 (104) 97 Room Air 11/27/19 21:17 133 159/84 (109) 11/27/19 21:16 125 165/106 (125) 11/27/19 21:00 158/83 (108) 11/27/19 19:50 Room Air 11/27/19 19:23 37.1 103 18 113/73 (86) 97 Room Air 11/27/19 19:03 110 11/27/19 15:10 36.7 101 20 113/78 (90) 97 Room Air 11/27/19 12:34 91 11/27/19 12:00 36.6 87 20 102/65 (77) 97 Room Air 11/27/19 09:00 Room Air 11/27/19 08:00 36.8 98 18 116/79 (91) 97 Room Air I & O 11/28/19 07:00 Intake Total 3725 ml Balance 3725 ml Capillary Refill : Less Than 3 Seconds General Appearance: No Apparent Distress, Obese HEENT: PERRL/EOMI, Normal ENT Inspection Neck: Non Tender, Supple Respiratory: No Accessory Muscle Use, No Respiratory Distress, Other (sonorous rhonchi without wheezes or rales noted throughout) Cardiovascular: Regular Rate, Rhythm, No Edema, No Gallop, No JVD, No Murmur, Normal Peripheral Pulses Peripheral Pulses: 2+ Radial Pulses (R) Gastrointestinal: distended (about same ); No tenderness Extremity: Non Tender, No Calf Tenderness Neurologic/Psychiatric: Alert; No Oriented x3; No Motor/Sensory Deficits Skin: Normal Color, Warm/Dry Lymphatic: No Adenopathy Results Lab Laboratory Tests 11/27/19 09:34: White Blood Count 5.4, Red Blood Count 3.83L, Hemoglobin 12.2L, Hematocrit 36L, Mean Corpuscular Volume 94, Mean Corpuscular Hemoglobin 32, Mean Corpuscular Hemoglobin Concent 34, Red Cell Distribution Width 14.2, Platelet Count 330, Mean Platelet Volume 8.9, Sodium Level 133L, Potassium Level 3.1L, Chloride Level 106, Carbon Dioxide Level 17L, Anion Gap 10, Blood Urea Nitrogen 9, Creatinine 0.62, Estimat Glomerular Filtration Rate > 60, BUN/Creatinine Ratio 15, Glucose Level 112H, Calcium Level 7.4L, Phosphorus Level 2.7, Magnesium Level 1.4L 11/28/19 04:25: White Blood Count 10.2, Red Blood Count 3.96L, Hemoglobin 12.3L, Hematocrit 36L, Mean Corpuscular Volume 90, Mean Corpuscular Hemoglobin 31, Mean Corpuscular Hemoglobin Concent 34, Red Cell Distribution Width 13.6, Platelet Count 432H, Mean Platelet Volume 8.5, Sodium Level 133L, Potassium Level 3.1L, Chloride Level 104, Carbon Dioxide Level 18L, Anion Gap 11, Blood Urea Nitrogen 10, Creatinine 0.67, Estimat Glomerular Filtration Rate > 60, BUN/Creatinine Ratio 15, Glucose Level 109H, Calcium Level 7.5L, Phosphorus Level 2.8, Magnesium Level 1.4L Assessment/Plan Assessment/Plan Assessment/Plan constipation colonic distention hypokalemia hypomagnesemia replace electrolytes clear liquids repeat kub possible repeat colonoscopy ARLEN ALSTON DO 11/29/19 0749: Subjective Subjective/Events-last exam Sleeping. Awakens but does not talk. Having bowel movements per chart. Tolerating liquids. Objective Exam General Appearance: No Apparent Distress, WD/WN HEENT: PERRL/EOMI, Normal ENT Inspection Neck: Non Tender, Supple Respiratory: Chest Non Tender, No Accessory Muscle Use, No Respiratory Distress Cardiovascular: Regular Rate, Rhythm Gastrointestinal: distended (same) Extremity: Non Tender, No Calf Tenderness Neurologic/Psychiatric: Alert; No Oriented x3 Skin: Normal Color, Warm/Dry Lymphatic: No Adenopathy Assessment/Plan Assessment/Plan Assessment/Plan constipation colonic distention hypokalemia hypomagnesemia replace as electrolytes as needed increase activity if can distention seems to be improving if continues does not need further decompressive colonoscopy Supervisory-Addendum Brief Verification & Attestation Participated in pt care: history, MDM, physical Personally performed: exam, history, MDM, supervision of care Care discussed with: Medical Student Procedures: n/a Results interpretation: Verified all documentation Verification and Attestation of Medical Student E/M Service A medical student performed and documented this service in my presence. I revie wed and verified all information documented by the medical student and made modifications to such information, when appropriate. I personally performed the physical exam and medical decision making. Arlen Alston, Nov 28, 2019,17:49 GI MCNAMARA STUDENT Nov 28, 2019 07:35 ARLEN ALSTON DO Nov 29, 2019 07:49
[2019-11-28] MEDS: APIXABAN 5 MG (ELIQUIS) TABLET PO SCH ×2 (09:16→20:03)
[2019-11-28] MEDS: BENZTROPINE MESYLATE 1 MG (COGENTIN) TAB PO SCH ×2 (09:17→20:03)
[2019-11-28] MEDS: risperiDONE 1 MG (RisperDAL) TAB PO SCH ×2 (09:17→20:03)
[2019-11-28] MEDS: SPIRONOLACTONE 25 MG (ALDACTONE) TAB PO SCH (09:18)
--- NOTE | 2019-11-28 09:46 | Progress Note - Hospitalist ---
ALMA CHAPARRO MED STUDENT 11/28/19 0945: Subjective HPI/CC On Admission Date Seen by Provider: Nov 28, 2019 Time Seen by Provider: 09:45 CC: bowel obstruction Subjective/Events-last exam CC: bowel obstruction HPI: Pt presents with distended abdomen. no tenderness noted. Pt has not had a bm as of this a.m. Pt was not awake or oriented. Pt still under one on one care. Focused Exam Respiratory: Lungs Clear, Normal Breath Sounds, No Accessory Muscle Use, No Respiratory Distress Cardiovascular: Regular Rate, Rhythm, No Edema, No Gallop, No JVD, No Murmur Objective Exam Vital Signs Vital Signs Date Time Temp Pulse Resp B/P (MAP) Pulse Ox O2 Delivery O2 Flow Rate FiO2 11/28/19 07:23 37.1 91 16 94/68 (77) 96 Room Air Capillary Refill : Less Than 3 Seconds General Appearance: No Apparent Distress Neck: Non Tender Respiratory: Lungs Clear, Normal Breath Sounds, No Accessory Muscle Use, No Respiratory Distress Cardiovascular: Regular Rate, Rhythm, No Edema, No Gallop, No JVD, No Murmur Gastrointestinal: Abnormal Bowel Sounds (hypoactive bowel sounds ), Distended Neurologic/Psychiatric: No Alert, No Oriented x3; Disoriented Lymphatic: No Adenopathy Results/Procedures Lab Laboratory Tests 11/28/19 04:25 Patient resulted labs reviewed. Assessment/Plan Assessment and Plan Assess & Plan/Chief Complaint Assessment 11/28/19 bowel obstruction dementia constipation hyponatremia Plan 11/28/19 palliative care consult physical therapy consult occupational therapy consult SHALONDA RED DO 11/28/19 1237: Subjective HPI/CC On Admission Date Seen by Provider: Nov 28, 2019 Time Seen by Provider: 09:00 Subjective/Events-last exam Pt still distended Pt could very well be a hospice candidate Haldol required due to agitation and aggression Has a sitter at the bedside on one on one PT and OT will be ordered Dementia is severe Conferred with Dr. Alecia Cochran is taken and that serves for DVT prophylaxis also because he is not really moving around much Right leg swelling but does not appear to be anything catastrophic Review of Systems General: Fatigue, Malaise Neurological: Weakness, Confusion Objective Exam General Appearance: No Apparent Distress, WD/WN, Chronically ill HEENT: PERRL/EOMI, Normal ENT Inspection, Pharynx Normal, Moist Mucous Membranes Neck: Full Range of Motion, Normal Inspection, Non Tender, Supple, Carotid Bruit Respiratory: Chest Non Tender, Lungs Clear, Normal Breath Sounds, No Accessory Muscle Use, No Respiratory Distress, Decreased Breath Sounds Cardiovascular: Regular Rate, Rhythm, No Edema, No Gallop, No JVD, No Murmur, Normal Peripheral Pulses Gastrointestinal: Normal Bowel Sounds, No Organomegaly, No Pulsatile Mass, Abnormal Bowel Sounds, Distended Back: Normal Inspection, No CVA Tenderness, No Vertebral Tenderness Extremity: Normal Capillary Refill, Normal Inspection, Normal Range of Motion, Non Tender, No Calf Tenderness, No Pedal Edema Neurologic/Psychiatric: Alert, No Motor/Sensory Deficits, Depressed Affect, Disoriented Skin: Normal Color, Warm/Dry Lymphatic: No Adenopathy Assessment/Plan Assessment and Plan Assess & Plan/Chief Complaint Assessment: Colonic obstruction Constipation Hypertension Dementia Plan: PT/OT Palliative care consult Mariela for agitation Conferred with Dr. Alston Supervisory-Addendum Brief Verification & Attestation Participated in pt care: history, MDM, physical Personally performed: exam, history, MDM, supervision of care Care discussed with: Medical Student Procedures: n/a Results interpretation: Verified all documentation Verification and Attestation of Medical Student E/M Service A medical student performed and documented this service in my presence. I reviewed and verified all information documented by the medical student and made modifications to such information, when appropriate. I personally performed the physical exam and medical decision making. Shalonda Red, Nov 28, 2019,20:53 ALMA CHAPARRO MED STUDENT Nov 28, 2019 09:45 SHALONDA RED DO Nov 28, 2019 12:37
--- NOTE | 2019-11-28 11:37 | Physical Therapy Progress Note ---
Therapy Progress Note No treatment. Patient sedated/unresponsive. Nursing to continue with mobility PRN. Patient has severe dementia and has not been responding. MAYELIN HARRY PT Nov 28, 2019 11:37
[2019-11-29 04:35] VITALS: BP 110/75
[2019-11-29 05:51] LABS: BASOPHILS % (AUTO) 0 % (0-10); EOSINOPHILS # (AUTO) 0.1 10^3/uL (0.0-0.3); EOSINOPHILS % (AUTO) 1 % (0-10); HEMATOCRIT 35 % (40-54); HEMOGLOBIN 11.5 G/DL (13.3-17.7); LYMPHOCYTES # (AUTO) 1.3 X 10^3 (1.0-4.0); LYMPHOCYTES % (AUTO) 18 % (12-44); MEAN CORPUSCULAR HEMOGLOBIN 30 PG (25-34); MEAN CORPUSCULAR HGB CONC 33 G/DL (32-36); MEAN CORPUSCULAR VOLUME 92 FL (80-99); MEAN PLATELET VOLUME 8.4 FL (7.4-10.4); MONOCYTES # (AUTO) 0.8 X 10^3 (0.0-1.0); MONOCYTES % (AUTO) 11 % (0-12); NEUTROPHILS % (AUTO) 70 % (42-75); PLATELET COUNT 346 10^3/uL (130-400); RED CELL DISTRIBUTION WIDTH 14.3 % (10.0-14.5); WHITE BLOOD COUNT 7.2 10^3/uL (4.3-11.0)
[2019-11-29 06:02] LABS: ALANINE AMINOTRANSFERASE 12 U/L (0-55); ALBUMIN 2.1 GM/DL (3.2-4.5); ALKALINE PHOSPHATASE 82 U/L (40-136); BILIRUBIN,TOTAL 0.4 MG/DL (0.1-1.0); BUN/CREATININE RATIO 17; CALCIUM 7.4 MG/DL (8.5-10.1); CARBON DIOXIDE 24 MMOL/L (21-32); CHLORIDE 102 MMOL/L (98-107); CREATININE SERUM 0.75 MG/DL (0.60-1.30); GFR ESTIMATED > 60; GLUCOSE 96 MG/DL (70-105); POTASSIUM 3.1 MMOL/L (3.6-5.0); SODIUM 134 MMOL/L (135-145); TOTAL PROTEIN 4.3 GM/DL (6.4-8.2)
[2019-11-29] MEDS: TAMSULOSIN 0.4 MG (FLOMAX) CAP PO SCH ×2 (06:42→17:04)
[2019-11-29] MEDS: FUROSEMIDE 40 MG (LASIX) TAB PO SCH (06:42)
[2019-11-29] MEDS: inSUlin ASPART (NovoLOG) 1 UNIT/0.01 ML (CHARGE PER UNIT) SC SCH ×4 (06:44→21:12)
--- NOTE | 2019-11-29 07:15 | Progress Note - Surgery ---
NAIMAGI MED STUDENT 11/29/19 0715: Subjective Date Seen by a Provider: Nov 29, 2019 Time Seen by a Provider: 07:00 Subjective/Events-last exam Pt still sleeping and unresponsive. Appears comfortable and in NAD. Abdomen feels improved from previous days. Some distention noted but has a softer feeling to palpation. No tenderness due to palpation. Nurse notes he had multiple BM overnight but all were liquid. No n/v, fever, chills, sob, chest pain noted. Review of Systems General: No Chills, No Night Sweats HEENT: No Head Aches, No Ear Pain Pulmonary: No Dyspnea, No Cough Cardiovascular: No: Chest Pain, Palpitations Gastrointestinal: No: Nausea, Vomiting, Abdominal Pain Genitourinary: No Dysuria, No Frequency Musculoskeletal: No: neck pain, shoulder pain Neurological: No: Weakness, Numbness Objective Exam Vital Signs Date Time Temp Pulse Resp B/P (MAP) Pulse Ox O2 Delivery O2 Flow Rate FiO2 11/29/19 04:35 36.1 87 18 110/75 (87) 96 11/28/19 23:24 36.4 90 20 103/72 (82) 95 Room Air 11/28/19 20:10 Room Air 11/28/19 19:23 37.0 60 20 122/79 (93) 97 Room Air 11/28/19 15:08 36.9 102 18 96/66 (76) 99 Room Air 11/28/19 11:50 36.7 90 20 134/77 (96) 97 Room Air 11/28/19 09:00 Room Air 11/28/19 07:23 37.1 91 16 94/68 (77) 96 Room Air I & O 11/29/19 07:00 Intake Total 2320 ml Balance 2320 ml Capillary Refill : Less Than 3 Seconds General Appearance: No Apparent Distress, WD/WN, Chronically ill HEENT: PERRL/EOMI, Normal ENT Inspection, Pharynx Normal, Moist Mucous Membranes Neck: Full Range of Motion, Normal Inspection, Non Tender, Supple, Carotid Bruit Respiratory: Chest Non Tender, Lungs Clear, Normal Breath Sounds, No Accessory Muscle Use, No Respiratory Distress, Decreased Breath Sounds Cardiovascular: Regular Rate, Rhythm, No Edema, No Gallop, No JVD, No Murmur, Normal Peripheral Pulses Peripheral Pulses: 2+ Radial Pulses (R) Gastrointestinal: soft, distended (about same ); No tenderness Extremity: Normal Capillary Refill, Normal Inspection, Normal Range of Motion, Non Tender, No Calf Tenderness, No Pedal Edema Neurologic/Psychiatric: Alert, No Motor/Sensory Deficits, Depressed Affect, Disoriented Skin: Normal Color, Warm/Dry Lymphatic: No Adenopathy Results Lab Laboratory Tests 11/28/19 11:13: Glucometer 96 11/28/19 15:12: Glucometer 151H 11/28/19 20:03: Glucometer 130H 11/29/19 05:25: White Blood Count 7.2, Red Blood Count 3.78L, Hemoglobin 11.5L, Hematocrit 35L, Mean Corpuscular Volume 92, Mean Corpuscular Hemoglobin 30, Mean Corpuscular Hemoglobin Concent 33, Red Cell Distribution Width 14.3, Platelet Count 346, Mean Platelet Volume 8.4, Neutrophils (%) (Auto) 70, Lymphocytes (%) (Auto) 18, Monocytes (%) (Auto) 11, Eosinophils (%) (Auto) 1, Basophils (%) (Auto) 0, Neutrophils # (Auto) 5.0, Lymphocytes # (Auto) 1.3, Monocytes # (Auto) 0.8, Eosinophils # (Auto) 0.1, Basophils # (Auto) 0.0, Sodium Level 134L, Potassium Level 3.1L, Chloride Level 102, Carbon Dioxide Level 24, Anion Gap 8, Blood Urea Nitrogen 13, Creatinine 0.75, Estimat Glomerular Filtration Rate > 60, B UN/Creatinine Ratio 17, Glucose Level 96, Calcium Level 7.4L, Corrected Calcium 8.9, Total Bilirubin 0.4, Aspartate Amino Transf (AST/SGOT) 7, Alanine Aminotransferase (ALT/SGPT) 12, Alkaline Phosphatase 82, Total Protein 4.3L, Albumin 2.1L Assessment/Plan Assessment/Plan Assessment/Plan constipation colonic distention hypokalemia hypomagnesemia replace electrolytes clear liquids repeat kub possible repeat colonoscopy ARLEN ALSTON DO 11/30/19 0832: Subjective Subjective/Events-last exam Patient not providing information. Having stools. No concerns from nursing. Objective Exam General Appearance: No Apparent Distress, WD/WN, Chronically ill HEENT: PERRL/EOMI, Normal ENT Inspection, Pharynx Normal Neck: Full Range of Motion, Non Tender, Supple Respiratory: Chest Non Tender, No Accessory Muscle Use, No Respiratory Distress Cardiovascular: Regular Rate, Rhythm, No Edema Gastrointestinal: soft, distended ( same to maybe less) Extremity: Normal Capillary Refill, Non Tender, No Calf Tenderness Neurologic/Psychiatric: Alert Skin: Normal Color, Warm/Dry Lymphatic: No Adenopathy Assessment/Plan Assessment/Plan Assessment/Plan constipation colonic distention hypokalemia hypomagnesemia will advance diet replace electrolytes as needed no surgical intervention Supervisory-Addendum Brief Verification & Attestation Participated in pt care: history, MDM, physical Personally performed: exam, history, MDM, supervision of care Care discussed with: Medical Student Procedures: n/a Results interpretation: Verified all documentation Verification and Attestation of Medical Student E/M Service A medical student performed and documented this service in my presence. I reviewed and verified all information documented by the medical student and made modifications to such information, when appropriate. I personally performed the physical exam and medical decision making. Arlen Alston, Nov 29, 2019,08:32 GI MCNAMARA MED STUDENT Nov 29, 2019 07:15 ARLEN ALSTON DO Nov 30, 2019 08:32
[2019-11-29 08:00] VITALS: BP 119/83
[2019-11-29] MEDS: SPIRONOLACTONE 25 MG (ALDACTONE) TAB PO SCH (08:02)
[2019-11-29] MEDS: risperiDONE 1 MG (RisperDAL) TAB PO SCH ×2 (08:02→19:55)
[2019-11-29] MEDS: APIXABAN 5 MG (ELIQUIS) TABLET PO SCH ×2 (08:02→19:56)
[2019-11-29] MEDS: BENZTROPINE MESYLATE 1 MG (COGENTIN) TAB PO SCH ×2 (08:02→19:55)
--- NOTE | 2019-11-29 08:59 | Physical Therapy Daily Note ---
PT Daily Note-Current Subjective Patient is more alert/awake today. Mental Status Patient Orientation: Confused Transfers SCALE: Activities may be completed with or without assistive devices. 7-Yxkbpkugjr-tbfzywn completes the activity by him/herself with no assistance from a helper. 5-Set-up or Clean-up Assistance-helper sets up or cleans up; patient completes activity. [place] assists only prior to or following the activity. 4-Supervision or Touching Assistance-helper provides verbal cues and/or touching/steadying and/or contact guard assistance as patient completes activity. Assistance may be provided throughout the activity or intermittently. 3-Partial/Moderate Assistance-helper does LESS THAN HALF the effort. [place] lifts, holds or supports trunk or limbs, but provides less than half the effort. 2-Substantial/Maximal Assistance-helper does MORE THAN HALF the effort. [place] lifts or holds trunk or limbs and provides more than half the effort. 9-Ehfusgtgr-uswmnt does ALL the effort. Patient does none of the effort to com plete the activity. Or, the assistance of 2 or more helpers is required for the patient to complete the activity. If activity was not attempted, code reason: 7-Patient Refused. 9-Not Applicable-not attempted and the patient did not perform the activity before the current illness, exacerbation or injury. 10-Not Attempted due to Environmental Limitations-(lack of equipment, weather restraints, etc.). 88-Not Attempted due to Medical Conditions or Safety Concerns. Roll Left & Right (QC): 2 Lying to Sitting/Side of Bed(Q: 2 Sit to Stand (QC): 2 (x 2) Chair/Akx-ka-Cboyu Xfer(QC): 2 (x 2) Patient incontinent BM during treatment session. Weight Bearing Right Lower Extremity: Right Full Weight Bearing Left Lower Extremity: Left Full Weight Bearing Gait Training Does the Patient Walk?: No and Walking Goal IS indicated Distance: 10' Walk 10 feet (QC): 2 (x 2) Gait Assistive Device: None Patient impulsive sat, recliner was near. Assessment Patient is up in recliner with chair alarm activated. RN present during treatment session. PT Retirement Goals Retirement Goals PT Retirement Goals Time Frame: Dec 03, 2019 Roll Left & Right (QC): 5 Sit to Lying (QC): 5 Lying-Sitting on Side/Bed(QC): 5 Sit to Stand (QC): 5 Chair/Uiy-pq-Lmcnh Xfer(QC): 5 Toilet Transfer (QC): 5 Does the Patient Walk: Yes Walk 10 feet (QC): 5 Walk 50ft with 2 Turns (QC): 5 Walk 150 ft (QC): 5 PT Plan Treatment/Plan Treatment Plan: Continue Plan of Care Treatment Plan: Education, Functional Activity Cristino, Functional Strength, Gait Treatment Duration: Dec 03, 2019 Frequency: 5 times per week Estimated Hrs Per Day: .25 hour per day Patient and/or Family Agrees t: Yes Time/GCodes Time In: 844 Time Out: 854 Total Billed Treatment Time: 10 Total Billed Treatment 1 visit FA 10 min MAYELIN HARRY PT Nov 29, 2019 08:59
--- NOTE | 2019-11-29 09:07 | NUR ---
PALLIATIVE CARE RN in to see patient on my first visit. I was expecting to see an unresponsive patient due to charting., however patient was sitting up in chair and alert. He knows that he is in [place] at [facility]. He answered several questions with sentences that made since. He did have mumbly words as well but for the most part he was understandable. He has family, a daughter who lives in [place] who is DPOA. Unsure what the plan is for him at this time. Addendum: 11/29/19 at 0953 by JOSELITO LOWE RN amend statement to says "he knows he is at [place] at [facility]".
[2019-11-29] MEDS ORDERED: MAGNESIUM 1 GM/100 ML IVPB 100 ML IV ONE (09:15)
[2019-11-29] MEDS: POTASSIUM CL 10MEQ/50ML IVPB 50 ML IV SCH ×4 (09:39→12:28)
--- NOTE | 2019-11-29 09:56 | Progress Note - Hospitalist ---
ALMA CHAPARRO MED STUDENT 11/29/19 0956: Subjective HPI/CC On Admission Date Seen by Provider: Nov 29, 2019 Time Seen by Provider: 08:00 CC: bowel obstruction Subjective/Events-last exam Pt presents with bowel obstruction. Pt is more awake and alert than yesterday 11/28/19. Abdomen is still distended, no tenderness is noted. Pt states that he is having R leg pain, located in the hip. Pt states that his bowels are moving fine, per nurse report he has been having liquid bowels. Last bowel movement was at 0700. Review of Systems HEENT: No Head Aches Pulmonary: Cough Cardiovascular: No: Chest Pain Gastrointestinal: No: Nausea, Vomiting Focused Exam Respiratory: Lungs Clear, Normal Breath Sounds, No Accessory Muscle Use, No Respiratory Distress Cardiovascular: Regular Rate, Rhythm Objective Exam Vital Signs Vital Signs Date Time Temp Pulse Resp B/P (MAP) Pulse Ox O2 Delivery O2 Flow Rate FiO2 11/29/19 09:00 97 Room Air 11/29/19 08:00 36.3 92 20 119/83 (95) Capillary Refill : Less Than 3 Seconds General Appearance: No Apparent Distress Neck: Non Tender Respiratory: Lungs Clear, Normal Breath Sounds, No Accessory Muscle Use, No Respiratory Distress Cardiovascular: Regular Rate, Rhythm Gastrointestinal: Normal Bowel Sounds, Non Tender, Distended Results/Procedures Lab Laboratory Tests 11/29/19 05:25 Patient resulted labs reviewed. Assessment/Plan Assessment and Plan Assess & Plan/Chief Complaint Assessment 11/28/19 bowel obstruction dementia constipation hyponatremia Plan 11/28/19 palliative care consult physical therapy consult occupational therapy consult Assessment 11/29/19 Bowel obstruction constipation dementia hyponatremia hypokalemia fecal impaction Plan 11/29/19 IV potassium IV magnesium continue surgery consult continue with symptomatic care as needed SHALONDA MONACO DO 11/29/19 1224: Subjective HPI/CC On Admission Date Seen by Provider: Nov 29, 2019 Time Seen by Provider: 08:00 Subjective/Events-last exam Pt doing pretty well today Sleeps most of the time Still having some abdominal distention Right leg is a bit increased in circumference compared to the left but he is on Xarelto, nurses are very concerned but does not appear to have any evidence of thrombosis at this time Replacing Potassium because it is 3.1 Review of Systems General: Fatigue, Malaise Neurological: Weakness Objective Exam General Appearance: No Apparent Distress, WD/WN HEENT: PERRL/EOMI, Normal ENT Inspection, Pharynx Normal, Moist Mucous Membranes Neck: Full Range of Motion, Normal Inspection, Non Tender, Supple, Carotid Bruit Respiratory: Chest Non Tender, Lungs Clear, Normal Breath Sounds, No Accessory Muscle Use, No Respiratory Distress Cardiovascular: Regular Rate, Rhythm, No Edema, No Gallop, No JVD, No Murmur, Normal Peripheral Pulses Gastrointestinal: Normal Bowel Sounds, No Organomegaly, No Pulsatile Mass, Distended Back: Normal Inspection, No CVA Tenderness, No Vertebral Tenderness Extremity: Normal Capillary Refill, Normal Inspection, Normal Range of Motion, Non Tender, No Calf Tenderness, No Pedal Edema Neurologic/Psychiatric: Alert, No Motor/Sensory Deficits, Normal 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, 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, Depressed Affect, Disoriented Skin: Normal Color, Warm/Dry Lymphatic: No Adenopathy Assessment/Plan Assessment and Plan Assess & Plan/Chief Complaint 11/29/19: May need swing bed Continue supportive care Prognosis poor halfway at discharge Replace potassium Diagnosis/Problems Diagnosis/Problems (1) Colonic obstruction (2) Dementia (3) DVT prophylaxis (4) Diabetes mellitus Status: Acute (5) Hyponatremia Status: Acute (6) Constipation Status: Acute (7) Hypokalemia Supervisory-Addendum Brief Verification & Attestation Participated in pt care: history, MDM, physical Personally performed: exam, history, MDM, supervision of care Care discussed with: Medical Student Procedures: n/a Results interpretation: Verified all documentation Verification and Attestation of Medical Student E/M Service A medical student performed and documented this service in my presence. I reviewed and verified all information documented by the medical student and made modifications to such information, when appropriate. I personally performed the physical exam and medical decision making. Shalonda Monaco, Nov 29, 2019,20:16 ALMA CHAPARRO MED STUDENT Nov 29, 2019 09:56 SHALONDA MONACO DO Nov 29, 2019 12:24
--- NOTE | 2019-11-29 15:03 | NUR ---
Swing Bed Note: SWB evaluation ordered. Patient qualifies for swing bed for continued need of Physical et Occupational therapies for continued strengthening (Abdominal Distension w/ Constipation). Valente continues to also need electrolyte monitoring with IV electrolyte replacement while he is recovering from his continued diarrhea s/p colonic decompression. Very lengthy investigation into patient's MCR insurance to determine if it is active and he has coverage. He has previously lived at a skilled nursing in [place], [place] for many years, "[facility]" phone number . After his stay with them he lived at "[facility]" phone number [phone]. He is currently living at [facility]. Neither [place] or [place] had a copy of his MCR insurance card and neither one was able to give me information about Darin Dunham. In talking with [facility] they gave me contact information for patient's listed family contacts. Daughter- Arabella Dolan [phone] Sister- Ronit Singh [phone] Arabella gave updated needed information of "[facility]la" and they will be faxing copies of his MCR insurance tomorrow for us to put on file. Arabella also reports that she is the DPOA for her father. This was not the information that Claudia gave to me and so I will also try and track down updated POA documentation hopefully from [facility]. With the information that Arabella provided I was able to run the patient in [employer] and determine that he has active MCR insurance. Updated Registration with the above information. Anticipate admission to swing bed tomorrow 11/30/19. Thank you for this referral!
[2019-11-29 15:46] VITALS: BP 104/69
[2019-11-30 00:07] VITALS: BP 117/75
[2019-11-30 05:14] LABS: BASOPHILS % (AUTO) 0 % (0-10); EOSINOPHILS # (AUTO) 0.1 10^3/uL (0.0-0.3); EOSINOPHILS % (AUTO) 2 % (0-10); HEMATOCRIT 33 % (40-54); HEMOGLOBIN 11.5 G/DL (13.3-17.7); LYMPHOCYTES # (AUTO) 1.2 X 10^3 (1.0-4.0); LYMPHOCYTES % (AUTO) 19 % (12-44); MEAN CORPUSCULAR HEMOGLOBIN 31 PG (25-34); MEAN CORPUSCULAR HGB CONC 35 G/DL (32-36); MEAN CORPUSCULAR VOLUME 91 FL (80-99); MEAN PLATELET VOLUME 8.6 FL (7.4-10.4); MONOCYTES # (AUTO) 0.8 X 10^3 (0.0-1.0); MONOCYTES % (AUTO) 12 % (0-12); NEUTROPHILS # (AUTO) 4.2 X 10^3 (1.8-7.8); NEUTROPHILS % (AUTO) 68 % (42-75); PLATELET COUNT 332 10^3/uL (130-400); RED CELL DISTRIBUTION WIDTH 13.6 % (10.0-14.5); WHITE BLOOD COUNT 6.3 10^3/uL (4.3-11.0)
[2019-11-30 05:33] LABS: ALANINE AMINOTRANSFERASE 11 U/L (0-55); ALBUMIN 2.1 GM/DL (3.2-4.5); ALKALINE PHOSPHATASE 80 U/L (40-136); BILIRUBIN,TOTAL 0.4 MG/DL (0.1-1.0); BUN/CREATININE RATIO 18; CALCIUM 7.3 MG/DL (8.5-10.1); CARBON DIOXIDE 23 MMOL/L (21-32); CHLORIDE 101 MMOL/L (98-107); CREATININE SERUM 0.65 MG/DL (0.60-1.30); GFR ESTIMATED > 60; GLUCOSE 87 MG/DL (70-105); POTASSIUM 3.1 MMOL/L (3.6-5.0); SODIUM 132 MMOL/L (135-145); TOTAL PROTEIN 4.2 GM/DL (6.4-8.2)
[2019-11-30] MEDS: inSUlin ASPART (NovoLOG) 1 UNIT/0.01 ML (CHARGE PER UNIT) SC SCH (06:15)
[2019-11-30] MEDS: TAMSULOSIN 0.4 MG (FLOMAX) CAP PO SCH (06:15)
[2019-11-30] MEDS: FUROSEMIDE 40 MG (LASIX) TAB PO SCH (06:15)
--- NOTE | 2019-11-30 07:51 | Progress Note - Surgery ---
RHONDA ZHANG MED STUDENT 11/30/19 0751: Subjective Date Seen by a Provider: Nov 30, 2019 Time Seen by a Provider: 07:35 Subjective/Events-last exam Pt is responsive and able to answer questions this morning. He has had two bowel movements in the night. He reports no abdominal pain and there is no tenderness to palpation. Abdomen is mildly distended but feels softer than previous reports. He denies chest pain, shortness of breath, nausea vomiting, fever and chills. Objective Exam Vital Signs Date Time Temp Pulse Resp B/P (MAP) Pulse Ox O2 Delivery O2 Flow Rate FiO2 11/30/19 00:07 36.4 96 18 117/75 (89) 97 Room Air 11/29/19 20:00 Room Air 11/29/19 15:46 36.8 90 16 104/69 (81) 96 Room Air 11/29/19 09:00 97 Room Air 11/29/19 08:00 36.3 92 20 119/83 (95) 97 Room Air I & O 11/30/19 07:00 Intake Total 2328 ml Balance 2328 ml Capillary Refill : Less Than 3 Seconds General Appearance: No Apparent Distress, WD/WN HEENT: PERRL/EOMI, Moist Mucous Membranes Respiratory: Chest Non Tender, Lungs Clear, Normal Breath Sounds, No Accessory Muscle Use, No Respiratory Distress Cardiovascular: Regular Rate, Rhythm, No Edema, No Murmur Peripheral Pulses: 2+ Radial Pulses (R) Gastrointestinal: normal bowel sounds, non tender, soft, distended (mild distention) Extremity: Non Tender, No Calf Tenderness Neurologic/Psychiatric: Alert, No Motor/Sensory Deficits, Normal Mood/Affect, Depressed Affect, Disoriented Skin: Normal Color, Warm/Dry Results Lab Laboratory Tests 11/29/19 11:21: Glucometer 102 11/29/19 15:22: Glucometer 103 11/29/19 20:49: Glucometer 124H 11/30/19 04:25: White Blood Count 6.3, Red Blood Count 3.66L, Hemoglobin 11.5L, Hematocrit 33L, Mean Corpuscular Volume 91, Mean Corpuscular Hemoglobin 31, Mean Corpuscular Hemoglobin Concent 35, Red Cell Distribution Width 13.6, Platelet Count 332, Mean Platelet Volume 8.6, Neutrophils (%) (Auto) 68, Lymphocytes (%) (Auto) 19, Monocytes (%) (Auto) 12, Eosinophils (%) (Auto) 2, Basophils (%) (Auto) 0, Neutrophils # (Auto) 4.2, Lymphocytes # (Auto) 1.2, Monocytes # (Auto) 0.8, Eosinophils # (Auto) 0.1, Basophils # (Auto) 0.0, Sodium Level 132L, Potassium Level 3.1L, Chloride Level 101, Carbon Dioxide Level 23, Anion Gap 8, Blood Urea Nitrogen 12, Creatinine 0.65, Estimat Glomerular Filtration Rate > 60, BUN/Creatinine Ratio 18, Glucose Level 87, Calcium Level 7.3L, Corrected Calcium 8.8, Total Bilirubin 0.4, Aspartate Amino Transf (AST/SGOT) 8, Alanine Aminotransferase (ALT/SGPT) 11, Alkaline Phosphatase 80, Total Protein 4.2L, Albumin 2.1L Microbiology 11/29/19 C. difficile GDH Antigen & Toxins - Final, Complete Assessment/Plan Assessment/Plan Assessment/Plan constipation colonic distention hypokalemia hypomagnesemia replace electrolytes as needed increase activity if can distention seems to be improving if continues does not need further decompressive colonoscopy ARLEN ALSTON DO 11/30/19 0957: Subjective Subjective/Events-last exam Tolerating diet. More talkative. +bm. No abdominal pain. Denies n/v fever sweats chill shortness of breath or chest pain. Objective Exam General Appearance: No Apparent Distress, WD/WN HEENT: PERRL/EOMI Respiratory: Chest Non Tender, No Accessory Muscle Use, No Respiratory Distress Cardiovascular: Regular Rate, Rhythm Gastrointestinal: non tender, soft, distended (less) Extremity: Normal Capillary Refill, Non Tender, No Calf Tenderness Neurologic/Psychiatric: Alert Skin: Normal Color, Warm/Dry Lymphatic: No Adenopathy Assessment/Plan Assessment/Plan Assessment/Plan constipation colonic distention hypokalemia hypomagnesemia tolerating diet abdomen improving no surgical intervention replace K Supervisory-Addendum Brief Verification & Attestation Participated in pt care: history, MDM, physical Personally performed: exam, history, MDM, supervision of care Care discussed with: Medical Student Procedures: n/a Results interpretation: Verified all documentation Verification and Attestation of Medical Student E/M Service A medical student performed and documented this service in my presence. I reviewed and verified all information documented by the medical student and made modifications to such information, when appropriate. I personally performed the physical exam and medical decision making. Arlen Alston, Nov 30, 2019,09:57 RHONDA ZHANG MED STUDENT Nov 30, 2019 07:51 ARLEN ALSTON DO Nov 30, 2019 09:57
[2019-11-30 08:00] VITALS: BP 107/71
[2019-11-30] MEDS: SPIRONOLACTONE 25 MG (ALDACTONE) TAB PO SCH (08:02)
[2019-11-30] MEDS: BENZTROPINE MESYLATE 1 MG (COGENTIN) TAB PO SCH (08:02)
[2019-11-30] MEDS: risperiDONE 1 MG (RisperDAL) TAB PO SCH (08:02)
[2019-11-30] MEDS: APIXABAN 5 MG (ELIQUIS) TABLET PO SCH (08:02)
[2019-11-30] MEDS: POTASSIUM CL 10MEQ/50ML IVPB 50 ML IV SCH ×2 (08:44→09:19)
--- NOTE | 2019-11-30 09:00 | NUR ---
Report from Todd RN, patient oriented to room 412. Patient oriented to surroundings and call light. Denies any pain at this time. Will assume care of patient at this time.
--- NOTE | 2019-11-30 10:10 | Discharge Summary ---
Discharge Summary Hospital Course Was the Problem List Reviewed?: Yes Problems/Dx: (1) Colonic obstruction (2) Dementia (3) DVT prophylaxis (4) Diabetes mellitus Status: Acute (5) Hyponatremia Status: Acute (6) Constipation Status: Acute (7) Hypokalemia Hospital Course Date of Admission: Nov 26, 2019 at 11:25 Admission Diagnosis : Family Physician/Provider: Hemanth Lopez MD Date of Discharge: 11/30/19 Discharge Diagnosis: Colonic distention, constipation, dementia Hospital Course: Hospital Course: Pt had an uneventful hospital course he was admitted for colonic obstruction and lieus and impaction then with diarrhea. Pt had si gnificant dementia and overall remained in the [facility] with chronic debility and overall declined. Pt required swingbed status and potassium supplementation due to severity of electrolyte loss. Overall he remained stable along with general surgery consultation but prognosis is extremely poor on a fci basis. Labs and Pending Lab Test: Laboratory Tests 11/29/19 11:21: Glucometer 102 11/29/19 15:22: Glucometer 103 11/29/19 20:49: Glucometer 124H 11/30/19 04:25: White Blood Count 6.3, Red Blood Count 3.66L, Hemoglobin 11.5L, Hematocrit 33L, Mean Corpuscular Volume 91, Mean Corpuscular Hemoglobin 31, Mean Corpuscular Hemoglobin Concent 35, Red Cell Distribution Width 13.6, Platelet Count 332, Mean Platelet Volume 8.6, Neutrophils (%) (Auto) 68, Lymphocytes (%) (Auto) 19, Monocytes (%) (Auto) 12, Eosinophils (%) (Auto) 2, Basophils (%) (Auto) 0, Neutrophils # (Auto) 4.2, Lymphocytes # (Auto) 1.2, Monocytes # (Auto) 0.8, Eosinophils # (Auto) 0.1, Basophils # (Auto) 0.0, Sodium Level 132L, Potassium Level 3.1L, Chloride Level 101, Carbon Dioxide Level 23, Anion Gap 8, Blood Urea Nitrogen 12, Creatinine 0.65, Estimat Glomerular Filtration Rate > 60, BUN/Creatinine Ratio 18, Glucose Level 87, Calcium Level 7.3L, Corrected Calcium 8.8, Total Bilirubin 0.4, Aspartate Amino Transf (AST/SGOT) 8, Alanine Aminotransferase (ALT/SGPT) 11, Alkaline Phosphatase 80, Total Protein 4.2L, Albumin 2.1L Microbiology 11/29/19 C. difficile GD Antigen & Toxins - Final, Complete Home Meds Active Reported Viberzi (Eluxadoline) 100 Mg Tablet 100 Mg PO BID WITH MEALS Tylenol (Acetaminophen) 325 Mg Capsule 650 Mg PO Q4H PRN Risperdal (Risperidone) 1 Mg Tablet 1 Mg PO BID Questran Packet (Cholestyramine (with Sugar)) 4 Gm Powd.pack 12 Gm PO BID USES 3 SCOOPS BID Potassium Chloride 10 Meq Tab.er.prt 20 Meq PO BID TAKES 2 (10MEQ) TABS Miralax (Polyethylene Glycol 3350) 17 Gm Powd.pack 17 Gm PO BID Lipitor (Atorvastatin Calcium) 20 Mg Tablet 20 Mg PO HS Lasix (Furosemide) 40 Mg Tablet 40 Mg PO DAILY Haldol (Haloperidol Lactate) 5 Mg/1 Ml Ampul 5 Mg IJ Q8H PRN 14 Days STOP DATE 12-01-2019 Flomax (Tamsulosin HCl) 0.4 Mg Cap 0.4 Mg PO BID Eliquis (Apixaban) 5 Mg Tablet 5 Mg PO BID Micatin (Miconazole Nitrate) 14 Gm Cream..g. 1 Applic TP UD APPLY USING Q-TIP TO GROIN, COCCYN, KARSON-AREA TOPICALLY EVERY SHIFT FOR GAULDING/IRRITATION Cardizem (Diltiazem HCl) 120 Mg Tablet 240 Mg PO DAILY TAKES 2 (120MG) TABS NOTIFY PHYSICIAN IF BP FALLS OUT OF THE FOLLOWING PARAMETERS FOR 3 CONSECUTIVE DAYS: SBP <90 OR >200 DBP <50 OR >120 PULSE <50 >120 Benztropine Mesylate 1 Mg Tablet 1 Mg PO BID Aldactone (Spironolactone) 25 Mg Tablet 12.5 Mg PO DAILY TAKES OF A 25MG TAB Assessment/Pt Instructions SB Discharge Planning: <30 minutes discharge planning Discharge Instructions Discharge Diet: No Restrictions Activity as Tolerated: Yes Discharge Physical Examination Vital Signs Vital Signs Date Time Temp Pulse Resp B/P (MAP) Pulse Ox O2 Delivery O2 Flow Rate FiO2 11/30/19 08:00 36.2 90 18 107/71 (83) 98 Room Air General Appearance: No Apparent Distress, WD/WN, Chronically ill Respiratory: Chest Non Tender, Lungs Clear, Normal Breath Sounds, No Accessory Muscle Use, No Respiratory Distress Cardiovascular: Regular Rate, Rhythm, No Edema, No Gallop, No JVD, No Murmur, Normal Peripheral Pulses Allergies: Coded Allergies: No Known Drug Allergies (Unverified , 09/03/19) Discharge Summary Date of Admission Nov 26, 2019 at 11:25 Date of Discharge Nov 30, 2019 at 09:19 Discharge Date: Nov 30, 2019 Discharge Diagnosis 11/29/19: May need swing bed Continue supportive care Prognosis poor [facility] at discharge Replace potassium (1) Colonic obstruction (2) Dementia (3) DVT prophylaxis (4) Diabetes mellitus Status: Acute (5) Hyponatremia Status: Acute (6) Constipation Status: Acute (7) Hypokalemia SALVADOR RED DO Nov 30, 2019 10:10
--- NOTE | 2019-11-30 11:01 | Progress Note ---
ALMA CHAPARRO MED STUDENT 11/30/19 1101: Progress Note Hospital Course Patient presented with signs and symptoms of bowel obstruction. Patient was monitored in conjunction with surgery. Multiple abdominal x-rays were done by surgery and were found to show dilated loops of bowel. Patient's abdominal distension improved day by day. Patient started having bowel movements and normal bowel sounds again. Patient is more awake and alert. Patient is not in any pain and is feeling better. Patient is being discharged and put on swing bed to continue to monitor any electrolyte abnormalities. SHALONDA MONACO DO 11/30/19 2100: Supervisory-Addendum Brief Verification & Attestation Participated in pt care: history, MDM, physical Personally performed: exam, history, MDM, supervision of care Care discussed with: Medical Student Procedures: n/a Results interpretation: Verified all documentation Verification and Attestation of Medical Student E/M Service A medical student performed and documented this service in my presence. I reviewed and verified all information documented by the medical student and made modifications to such information, when appropriate. I personally performed the physical exam and medical decision making. Shalonda Monaco, Nov 30, 2019,21:00 ALMA CHAPARRO MED STUDENT Nov 30, 2019 11:01 SHALONDA MONACO DO Nov 30, 2019 21:00
== END 2019-11-30 09:19 | DRG 389 ==
LOC: EDUNIT# 20:18 → ER 20:20 → 4TH 21:20 → UNDOADMOB 11-24 07:01 → 4TH 11-24 07:01 → OBSVTOIN 11-26 11:25
PROVIDERS: ADMIT Family Medicine; ATTEND Internal Medicine
PROC: 0D7E8ZZ Dilation of Large Intestine, Via Natural or Artificial Opening Endoscopic (ICD-10-PCS; principal; 2019-11-23 13:00)
DX: K56.609 Unspecified intestinal obstruction, unspecified as to partial versus complete obstruction (principal); E87.1 Hypo-osmolality and hyponatremia; F03.91 Unspecified dementia, unspecified severity, with behavioral disturbance; E87.6 Hypokalemia; E83.42 Hypomagnesemia; K63.89 Other specified diseases of intestine; E11.9 Type 2 diabetes mellitus without complications; K56.41 Fecal impaction
CPT/HCPCS: 36415; 71045; 74018; 74176; 80048; 80053; 81000; 82150; 82962; 83690; 83735; 84100; 85025; 85027; 85610; 85730; 87324; 87449; 93005; 93041; G0378

== ENCOUNTER 2019-11-30 09:25 | Inpatient (IN) | payer MEDICARE, MEDICAID ==
[~2019-11-30] VITALS: Ht 177.8 cm; Wt 98.5 kg
[~2019-11-30 09:25] MED LIST: ACET325C7 PO; APIX5TAB PO; ATOR20TA49 PO; BENZ1TAB6 PO; CHOL4PAC16 PO; DILT120T11 PO; ELUX100T PO; FURO-124 PO; HALO5AMP IJ; MICO14CR6 TP; POLY17PO6 PO; POTA10TA36 PO; RISP1TAB94 PO; SPIR25TA PO; TMSL.4C PO
[2019-11-30] MEDS ORDERED: HALOPERIDOL 5 MG/ML (HALDOL) VIAL IM PRN (09:30)
[2019-11-30] MEDS ORDERED: LORazepam INJ 2 MG/ML (ATIVAN) VIAL IVP PRN (09:30)
--- NOTE | 2019-11-30 09:54 | NUR ---
Admission Drug Regimen Review: Date: 11/30/19 Time: 954 Review Completed, No Issues found
--- NOTE | 2019-11-30 09:54 | NUR ---
Swing Bed Note: SWB evaluation ordered. Patient qualifies for swing bed for continued need of Physical et Occupational therapies for continued strengthening (Abdominal Distension w/ Constipation). Valente continues to also need electrolyte monitoring with IV electrolyte replacement while he is recovering from his continued diarrhea s/p colonic decompression. Very lengthy investigation into patient's MCR insurance to determine if it is active and he has coverage. He has previously lived at a senior living in [place], [place] for many years, "[facility]" phone number . After his stay with them he lived at "[facility]" phone number [phone]. He is currently living at [facility]. Neither [place] or [place] had a copy of his MCR insurance card and neither one was able to give me information about Darin Dunham. In talking with [facility] they gave me contact information for patient's listed family contacts. Daughter- Arabella Dolan [phone] Sister- Ronit Singh [phone] Arabella gave updated needed information of "[facility]" and they will be faxing copies of his MCR insurance tomorrow for us to put on file. Arabella also reports that she is the DPOA for her father. This was not the information that Claudia gave to me and so I will also try and track down updated POA documentation hopefully from [facility]. With the information that Arabella provided I was able to run the patient in [employer] and determine that he has active MCR insurance. Updated Registration with the above information. Anticipate admission to swing bed tomorrow 11/30/19. Thank you for this referral!
--- NOTE | 2019-11-30 10:20 | Physical Therapy Evaluation ---
PT Evaluation-General Medical Diagnosis Admission Date Nov 30, 2019 at 09:25 Medical Diagnosis: colonic obstruction/constipation Onset Date: Nov 22, 2019 Therapy Diagnosis Therapy Diagnosis: impaired mobility, strength, endurance Weight Bear Status Right Lower Extremity: Right Full Weight Bearing Left Lower Extremity: Left Full Weight Bearing Referral Physician: Shalonda Monaco DO Reason for Referral: Evaluation/Treatment Medical History Pertinent Medical History: Dementia Reviewed History: Yes Social History Home: Custodial Prior Prior Level of Function SCALE: Activities may be completed with or without assistive devices. 7-Eqtdbsrdml-oydajiu completes the activity by him/herself with no assistance from a helper. 5-Set-up or Clean-up Assistance-helper sets up or cleans up; patient completes activity. Labadie assists only prior to or following the activity. 4-Supervision or Touching Assistance-helper provides verbal cues and/or touching/steadying and/or contact guard assistance as patient completes activity. Assistance may be provided throughout the activity or intermittently. 3-Partial/Moderate Assistance-helper does LESS THAN HALF the effort. Labadie lifts, holds or supports trunk or limbs, but provides less than half the effort. 2-Substantial/Maximal Assistance-helper does MORE THAN HALF the effort. Labadie lifts or holds trunk or limbs and provides more than half the effort. 7-Nsccejyeu-szjsda does ALL the effort. Patient does none of the effort to complete the activity. Or, the assistance of 2 or more helpers is required for the patient to complete the activity. If activity was not attempted, code reason: 7-Patient Refused. 9-Not Applicable-not attempted and the patient did not perform the activity before the current illness, exacerbation or injury. 10-Not Attempted due to Environmental Limitations-(lack of equipment, weather restraints, etc.). 88-Not Attempted due to Medical Conditions or Safety Concerns. Bed Mobility: 6 Transfers (B,C,W/C): 6 Gait: 6 Indoor Mobility (Ambulation): Independent Prior Devices Use: None (per facility) PT Evaluation-Current Subjective Patient in bed pre tx, doesn't respond verbally to questions, does open eyes and look at therapist, patient has been incontinent in the bed, nurse aide with help with cleaning and changing. Pt/Family Goals none stated Objective Patient Orientation: Confused, Unable to Assess, Non-Verbal/Aphasic Attachments: IV ROM/Strength ROM Lower Extremities WNL Strength Lower Extremities 3/5 gross BLE Transfers Roll Left to Right (QC): 1 Sit to Lying (QC): 88 Lying to Sitting/Side of Bed(Q: 88 Sit to Stand (QC): 88 Chair/Eqb-zm-Vzhwb Xfer(QC): 88 Toilet Transfer (QC): 88 Car Transfer (QC): 88 Patient has to roll to each side several times for cleaning and changing brief and sheets. Patient resists rolling to each side. Patient is agitated and fumbling with bed controls. Will not get patient out of bed at this time. Gait Walk 10 feet (QC): 88 Walk 50 ft with 2 Turns(QC): 88 Walk 150 ft (QC): 88 Walking 10ft/uneven surface-QC: 88 Wheelchair Training Wheel 50 ft with 2 turns (QC): 88 Wheel 150 ft (QC): 88 Stairs 1 Step (curb) (QC): 88 4 Steps (QC): 88 12 Steps (QC): 88 Balance Picking up an Object (QC): 88 Treatment BLE PROM in all planes, patient resists ROM at times Assessment/Needs Patient has impaired mobility, strength, endurance. Patient is confused and agitated, reaching/fumbling for things. Patient in bed post tx with nurse call, phone, tray, all needs met, bed alarm on. Rehab Potential: Poor PT [facility] Goals Bankruptcy Law Specialist Goals PT [facility] Goals Time Frame: Dec 07, 2019 Roll Left & Right (QC): 3 Sit to Lying (QC): 3 Lying-Sitting on Side/Bed(QC): 3 Sit to Stand (QC): 2 Chair/Qfc-mh-Neyuh Xfer(QC): 2 Toilet Transfer (QC): 2 Car Transfer (QC): 88 Does the Patient Walk: No and Walking Goal IS indicated Walk 10 feet (QC): 2 Walk 50ft with 2 Turns (QC): 88 Walk 150 ft (QC): 88 Walking 10ft on Uneven Surface: 88 1 Step (curb) (QC): 88 4 Steps (QC): 88 12 Steps (QC): 88 Picking up an Object (QC): 88 Wheel 50 feet with 2 turns (QC: 88 Wheel 150 feet: 88 PT Plan Problem List Problem List: Activity Tolerance, Functional Strength, Safety, Balance, Gait, Transfer, Bed Mobility, ROM Treatment/Plan Treatment Plan: Continue Plan of Care Treatment Plan: Bed Mobility, Education, Functional Activity Cristino, Functional Strength, Gait, Safety, Therapeutic Exercise, Transfers Treatment Duration: Dec 07, 2019 Frequency: 6 times per week Estimated Hrs Per Day: .25 hour per day Patient and/or Family Agrees t: Yes Safety Risks/Education Patient Education: Correct Positioning, Safety Issues Teaching Recipient: Patient Teaching Methods: Demonstration, Discussion Response to Teaching: Reinforcement Needed Discharge Recommendations Plan Patient will perform bed mobility and transfer training, balance and endurance training, functional strengthening, gait training, and education, to improve functional mobility and independence at home. Therapy Discharge Recommendati: Other, See Comments (NH) Time/GCodes Time In: 0945 Time Out: 1015 Total Billed Treatment Time: 30 Total Billed Treatment 1 visit CONRAD 15' FA 15' CARLOS ALBERTO MEJÍA PT Nov 30, 2019 10:20
[2019-11-30] MEDS: POTASSIUM CL 10MEQ/50ML IVPB 50 ML IV SCH ×2 (10:22→11:20)
--- NOTE | 2019-11-30 10:30 | NUR ---
MARILYN LIMON admitted to swing bed status to room 407-1, with an admitting diagnosis of SWB , on 11/30/19 from acute inpatient status. PT Therapy to evaluate patient for activity needs. MARILYN LIMON and/or family introduced to surroundings, call light, bed controls, phone, TV, temperature control, lights, meal times, smoking policy, visitor policy, side rail policy, bathrooms, and showers. Patient rights given to patient in the handbook.. MARILYN LIMON and/or family member verbalized understanding that [facility] is not responsible for the loss or damage to any personal effects or valuables that are kept in the patients possession during their hospitalization. The following care plans were discussed with MARILYN LIMON: Discharge Planning, pain management, dehydration, and medications. MARILYN LIMON and/or family verbalizes understanding of the Interdisciplinary Patient Education. Patient and/or family were informed about the Rapid Response Team and its purpose. Call light with in reach and patient demonstrates understanding of how to use. MARILYN LIMON reports no further needs at this time.
--- NOTE | 2019-11-30 11:55 | Occupational Therapy Eval ---
OT Evaluation-General/PLF Medical Diagnosis Admission Date Nov 30, 2019 at 09:25 Medical Diagnosis: colonic obstruction/constipation Onset Date: Nov 22, 2019 Therapy Diagnosis Therapy Diagnosis: Weakness Referral Physician: Shalonda Monaco DO Referral Reason: Evaluation/Treatment Medical History Pertinent Medical History: DM, Dementia Reviewed History: Yes Social History Home: [place] ADL-Prior Level of Function SCALE: Activities may be completed with or without assistive devices. 5-Ucpuxqjpxz-nhxhuvz completes the activity by him/herself with no assistance from a helper. 5-Set-up or Clean-up Assistance-helper sets up or cleans up; patient completes activity. [place] assists only prior to or following the activity. 4-Supervision or Touching Assistance-helper provides verbal cues and/or touching/steadying and/or contact guard assistance as patient completes activity. Assistance may be provided throughout the activity or intermittently. 3-Partial/Moderate Assistance-helper does LESS THAN HALF the effort. [place] lifts, holds or supports trunk or limbs, but provides less than half the effort. 2-Substantial/Maximal Assistance-helper does MORE THAN HALF the effort. [place] lifts or holds trunk or limbs and provides more than half the effort. 6-Zxrekyges-iwntno does ALL the effort. Patient does none of the effort to complete the activity. Or, the assistance of 2 or more helpers is required for the patient to complete the activity. If activity was not attempted, code reason: 7-Patient Refused. 9-Not Applicable-not attempted and the patient did not perform the activity before the current illness, exacerbation or injury. 10-Not Attempted due to Environmental Limitations-(lack of equipment, weather restraints, etc.). 88-Not Attempted due to Medical Conditions or Safety Concerns. ADL PLOF Comments It is unknown at this time what pt's previous PLOF was. He is confused in the bed. He is able to answer some questions, but often, is difficult to understand. He lives in a assisted. Self Care: Unknown Functional Cognition: Unknown OT Current Status Subjective Pt. mumbles throughout session. Does not state any pain. Appearance Pt. in bed. He has thrown his blankets off and is attempting to bring a foot up to him to put on a sock. Mental Status/Objective Patient Orientation: Confused Current Glasses/Contacts: Yes Hand Dominance: Right Pt. is able to state, "right" when OT asks what is his dominant hand. He is unable to follow cues to participate in UE assessment with ROM and strength. ADL-Treatment Eating (QC): 3 (Per nursing, pt. was able to hold spoon and bring to mouth. OT handed pt. his cup with lid so that he could drink. Pt. is able to bring to mouth to take sips.) Oral Hygiene (QC): 88 Shower/Bathe Self (QC): 88 Upper Body Dressing (QC): 88 Lower Body Dressing (QC): 88 On/Off Footwear (QC): 1 Toileting Hygiene (QC): 1 (Pt. incontinent earlier with PT.) Other Treatments Pt. in bed awake when OT enters room. He is attempted to put a sock on. He is supine, and has brought his foot up to him. Pt. holds sock up to foot but is unable to initiate the task itself. OT attempts different methods to engage pt. in donning sock. He is unable to complete. OT attempts to initiate transfer supine-sit. Pt. unable to participate. Does not attend or initiate the steps. Encouraged pt. to roll in bed for re-positioning and comfort. Pt. unable to initiate so OT rolls pt. for better positioning. Dependent assistance. OT spoke with nurse aide and she states pt. fed self with spoon. OT brought in red foam built up handles for easier grasp. All needs met in bed. Education OT Patient Education: Correct positioning, Modified ADL techniques, Progress toward Goal/Update tx plan, Purpose of tx/functional activities, Reviewed precautions, Rehab process Teaching Recipient: Patient Teaching Methods: Demonstration, Discussion Response to Teaching: Unable to Return Demonstration, Unable to Comprehend OT Custodial Goals Custodial Goals Time Frame: Dec 14, 2019 Eating (QC): 4 Oral Hygiene (QC): 3 Toileting Hygiene (QC): 9 Shower/Bathe Self (QC): 9 Upper Body Dressing (QC): 9 Lower Body Dressing (QC): 9 On/Off Footwear (QC): 2 Additional Goals: 1-Demonstrate ADL Tasks, 2-Verbalize Understanding, 3- ImproveStrength/Cristino 1=Demonstrate adherence to instructed precautions during ADL tasks. 2=Patient will verbalize/demonstrate understanding of assistive devices/modifications for ADL. 3=Patient will improve strength/tolerance for activity to enable patient to perform ADL's. OT Education/Plan Problem List/Assessment Assessment: Decreased Activ Tolerance, Decreased Safety Aware, Decreased UE Strength, Dependent Transfers, Impaired Bed Mobility, Impaired Cognition, Impaired Coordination, Impaired Funct Balance, Impaired I ADL's, Impaired Self-Care Skills, Restricted Funct UE ROM Discharge Recommendations Plan/Recommendations: Continue POC Therapy Discharge Recommendati: 24 Hour Supervision Treatment Plan/Plan of Care Treatment,Training & Education: Yes Patient would benefit from OT for education, treatment and training to promote independence in ADL's, mobility, safety and/or upper extremity function for ADL's. Plan of Care: ADL Retraining, Functional Mobility, UE Funct Exercise/Act Treatment Duration: Dec 14, 2019 Frequency: 5 times per week Estimated Hrs Per Day: .25 hour per day Agreement: Yes Rehab Potential: Guarded Time/GCodes Start Time: 10:40 Stop Time: 11:05 Total Time Billed (hr/min): 25 Billed Treatment Time 1, EVH x 10minutes, FA x 15minutes KAMARI ANDERSON OT Nov 30, 2019 11:55
[2019-11-30] MEDS: inSUlin ASPART (NovoLOG) 1 UNIT/0.01 ML (CHARGE PER UNIT) SC SCH ×3 (12:00→20:15)
--- NOTE | 2019-11-30 15:51 | NUR ---
Pastoral care visit, pt seemed pretty confused, answered "OK".
[2019-11-30 17:25] VITALS: BP 138/88
[2019-11-30] MEDS: TAMSULOSIN 0.4 MG (FLOMAX) CAP PO SCH (17:59)
[2019-11-30] MEDS: risperiDONE 1 MG (RisperDAL) TAB PO SCH (20:15)
[2019-11-30] MEDS: APIXABAN 5 MG (ELIQUIS) TABLET PO SCH (20:15)
[2019-11-30] MEDS: BENZTROPINE MESYLATE 1 MG (COGENTIN) TAB PO SCH (20:15)
[2019-12-01 05:42] VITALS: BP 119/72
[2019-12-01] MEDS: TAMSULOSIN 0.4 MG (FLOMAX) CAP PO SCH ×2 (06:22→17:36)
[2019-12-01] MEDS: inSUlin ASPART (NovoLOG) 1 UNIT/0.01 ML (CHARGE PER UNIT) SC SCH ×4 (06:22→21:23)
[2019-12-01] MEDS: FUROSEMIDE 40 MG (LASIX) TAB PO SCH (06:22)
[2019-12-01 06:34] LABS: HEMOGLOBIN 12.1 G/DL (13.3-17.7); MEAN PLATELET VOLUME 8.1 FL (7.4-10.4); RED CELL DISTRIBUTION WIDTH 13.7 % (10.0-14.5); WHITE BLOOD COUNT 5.2 10^3/uL (4.3-11.0)
[2019-12-01 06:46] LABS: ALBUMIN 2.4 GM/DL (3.2-4.5); CHLORIDE 101 MMOL/L (98-107); POTASSIUM 3.5 MMOL/L (3.6-5.0); SODIUM 134 MMOL/L (135-145)
[2019-12-01 06:47] LABS: CALCIUM 7.8 MG/DL (8.5-10.1)
[2019-12-01 06:49] LABS: GLUCOSE 91 MG/DL (70-105); TOTAL PROTEIN 4.8 GM/DL (6.4-8.2)
[2019-12-01 06:50] LABS: BILIRUBIN,TOTAL 0.4 MG/DL (0.1-1.0); CARBON DIOXIDE 25 MMOL/L (21-32)
[2019-12-01 06:52] LABS: ALKALINE PHOSPHATASE 93 U/L (40-136); CREATININE SERUM 0.69 MG/DL (0.60-1.30); GFR ESTIMATED > 60
[2019-12-01 06:53] LABS: BUN/CREATININE RATIO 12
[2019-12-01 06:55] LABS: ALANINE AMINOTRANSFERASE 14 U/L (0-55); MAGNESIUM 1.6 MG/DL (1.6-2.4)
[2019-12-01] MEDS: POTASSIUM CL 10MEQ/50ML IVPB 50 ML IV SCH ×4 (09:00→12:02)
[2019-12-01] MEDS: BENZTROPINE MESYLATE 1 MG (COGENTIN) TAB PO SCH ×2 (09:01→21:23)
[2019-12-01] MEDS: SPIRONOLACTONE 25 MG (ALDACTONE) TAB PO SCH (09:01)
[2019-12-01] MEDS: risperiDONE 1 MG (RisperDAL) TAB PO SCH ×2 (09:01→21:23)
[2019-12-01] MEDS: APIXABAN 5 MG (ELIQUIS) TABLET PO SCH ×2 (09:01→21:23)
--- NOTE | 2019-12-01 09:23 | Occupational Ther Daily Note ---
OT Current Status-Daily Note Subjective Pt sleeping in bed, woke easily. Pt agrees to therapy. Pt confused though can answer questions concerning wants and needs. Mental Status/Objective Patient Orientation: Person Attachments: IV ADL-Treatment Pt was able to manipulate small items and lids to open and place in wanted areas such as cereal bowl and lift off lids on drinking cups. Pt then was able to complete own feeding with regular utensil. Then when given a wash clothe pt able to wash hands and face. After session, pt reclining in bed drinking coffee. Safety measures in place. All needs met in room. Therapy Code Descriptions/Definitions Functional [place] Measure: 0=Not Assessed/NA 4=Minimal Assistance 1=Total Assistance 5=Supervision or Setup 2=Maximal Assistance 6=Modified [place] 3=Moderate Assistance 7=Complete IndependenceSCALE: Activities may be completed with or without assistive devices. 0-Yfkyzwimly-cdglekv completes the activity by him/herself with no assistance from a helper. 5-Set-up or Clean-up Assistance-helper sets up or cleans up; patient completes activity. [place] assists only prior to or following the activity. 4-Supervision or Touching Assistance-helper provides verbal cues and/or touching/steadying and/or contact guard assistance as patient completes activity. Assistance may be provided throughout the activity or intermittently. 3-Partial/Moderate Assistance-helper does LESS THAN HALF the effort. [place] lifts, holds or supports trunk or limbs, but provides less than half the effort. 2-Substantial/Maximal Assistance-helper does MORE THAN HALF the effort. [place] lifts or holds trunk or limbs and provides more than half the effort. 4-Yrqqbfdyb-ajlgqu does ALL the effort. Patient does none of the effort to complete the activity. Or, the assistance of 2 or more helpers is required for the patient to complete the activity. If activity was not attempted, code reason: 7-Patient Refused. 9-Not Applicable-not attempted and the patient did not perform the activity before the current illness, exacerbation or injury. 10-Not Attempted due to Environmental Limitations-(lack of equipment, weather restraints, etc.). 88-Not Attempted due to Medical Conditions or Safety Concerns. Eating (QC): 6 OT Skilled Nursing Goals Ink Blender Goals Time Frame: Dec 14, 2019 Eating (QC): 4 (met) Oral Hygiene (QC): 3 Toileting Hygiene (QC): 9 Shower/Bathe Self (QC): 9 Upper Body Dressing (QC): 9 Lower Body Dressing (QC): 9 On/Off Footwear (QC): 2 Additional Goals: 1-Demonstrate ADL Tasks, 2-Verbalize Understanding, 3- ImproveStrength/Cristino 1=Demonstrate adherence to instructed precautions during ADL tasks. 2=Patient will verbalize/demonstrate understanding of assistive devices/modific ations for ADL. 3=Patient will improve strength/tolerance for activity to enable patient to perform ADL's. OT Education/Plan Problem List/Assessment Assessment: Decreased Safety Aware, Impaired Cognition Discharge Recommendations Plan/Recommendations: Continue POC Treatment Plan/Plan of Care Patient would benefit from OT for education, treatment and training to promote independence in ADL's, mobility, safety and/or upper extremity function for ADL's. Plan of Care: ADL Retraining, Functional Mobility, UE Funct Exercise/Act Treatment Duration: Dec 14, 2019 Frequency: 5 times per week Estimated Hrs Per Day: .25 hour per day Agreement: Yes Rehab Potential: Guarded Time/GCodes Start Time: 09:00 Stop Time: 09:15 Total Time Billed (hr/min): 15 Billed Treatment Time 1 visit-ADL 1 (15 min) JOSE ARMANDO PORTER Dec 01, 2019 09:23
--- NOTE | 2019-12-01 09:41 | Physical Therapy Daily Note ---
PT Daily Note-Current Subjective Patient is much more alert today and is able to actively participate with therapy. Mental Status Patient Orientation: Confused Attachments: IV Transfers SCALE: Activities may be completed with or without assistive devices. 5-Shvhajekfb-ubrqgqy completes the activity by him/herself with no assistance from a helper. 5-Set-up or Clean-up Assistance-helper sets up or cleans up; patient completes activity. [place] assists only prior to or following the activity. 4-Supervision or Touching Assistance-helper provides verbal cues and/or touching/steadying and/or contact guard assistance as patient completes a ctivity. Assistance may be provided throughout the activity or intermittently. 3-Partial/Moderate Assistance-helper does LESS THAN HALF the effort. [place] lifts, holds or supports trunk or limbs, but provides less than half the effort. 2-Substantial/Maximal Assistance-helper does MORE THAN HALF the effort. [place] lifts or holds trunk or limbs and provides more than half the effort. 2-Wrujidndi-xubbjf does ALL the effort. Patient does none of the effort to complete the activity. Or, the assistance of 2 or more helpers is required for the patient to complete the activity. If activity was not attempted, code reason: 7-Patient Refused. 9-Not Applicable-not attempted and the patient did not perform the activity before the current illness, exacerbation or injury. 10-Not Attempted due to Environmental Limitations-(lack of equipment, weather restraints, etc.). 88-Not Attempted due to Medical Conditions or Safety Concerns. Lying to Sitting/Side of Bed(Q: 3 Sit to Stand (QC): 3 Chair/Fkk-hm-Edzuy Xfer(QC): 3 patient incontinent BM requiring dependent assistance to change and cleanse Weight Bearing Right Lower Extremity: Right Full Weight Bearing Left Lower Extremity: Left Full Weight Bearing Gait Training Does the Patient Walk?: Yes Distance: 30' x 1/250' x 1 Walk 10 feet (QC): 3 Walk 50 ft with 2 Turns(QC): 3 Walk 150 ft (QC): 3 Gait Assistive Device: None WATER ATTENDANT with functional gait sequence Assessment Patient tolerated treatment well and is in recliner with chair alarm activated. PT Airplane Pilot Commercial Goals Airplane Pilot Commercial Goals PT Usp Goals Time Frame: Dec 07, 2019 Roll Left & Right (QC): 3 Sit to Lying (QC): 3 Lying-Sitting on Side/Bed(QC): 3 Sit to Stand (QC): 2 Chair/Mes-pk-Udztr Xfer(QC): 2 Toilet Transfer (QC): 2 Car Transfer (QC): 88 Does the Patient Walk: No and Walking Goal IS indicated Walk 10 feet (QC): 2 Walk 50ft with 2 Turns (QC): 88 Walk 150 ft (QC): 88 Walking 10ft on Uneven Surface: 88 1 Step (curb) (QC): 88 4 Steps (QC): 88 12 Steps (QC): 88 Picking up an Object (QC): 88 Wheel 50 feet with 2 turns (QC: 88 Wheel 150 feet: 88 PT Plan Treatment/Plan Treatment Plan: Continue Plan of Care Treatment Plan: Bed Mobility, Education, Functional Activity Cristino, Functional Strength, Gait, Safety, Therapeutic Exercise, Transfers Treatment Duration: Dec 07, 2019 Frequency: 6 times per week Estimated Hrs Per Day: .25 hour per day Patient and/or Family Agrees t: Yes Time/GCodes Time In: 915 Time Out: 933 Total Billed Treatment Time: 18 Total Billed Treatment 1 visit FA 18 min MAYELIN HARRY PT Dec 01, 2019 09:41
--- NOTE | 2019-12-01 10:40 | Progress Note - Hospitalist ---
ZEN BERNAL MED STUDENT 12/01/19 1040: Subjective HPI/CC On Admission Date Seen by Provider: Dec 01, 2019 Time Seen by Provider: 09:10 bowel issues Subjective/Events-last exam Since the last exam the patient has experienced the following changes: -patient has been confused through most of his hospital stay and is likely demented at baseline, although he has reportedly been oriented at times -is having liquid stools. suspect partial obstruction only allowing passage of liquid. Will consult Alston about possibility of a procedure -potassium 3.5. Will supplement. Prior potassium in low 3s -mild hyponatremia 130s. we will continue to monitor. slight anemia with HGB 12. Objective Exam Vital Signs Vital Signs Date Time Temp Pulse Resp B/P (MAP) Pulse Ox O2 Delivery O2 Flow Rate FiO2 12/01/19 08:00 Room Air 12/01/19 05:42 36.2 93 20 119/72 (88) 94 Capillary Refill : Less Than 3 Seconds General Appearance: No Apparent Distress, WD/WN Respiratory: Chest Non Tender, Lungs Clear, Normal Breath Sounds, No Accessory Muscle Use, No Respiratory Distress Cardiovascular: Regular Rate, Rhythm, No Murmur Neurologic/Psychiatric: Other (asleep in the room. Does not coherently respond to questions or statements) Results/Procedures Lab Laboratory Tests 12/01/19 06:20 Patient resulted labs reviewed. Assessment/Plan Assessment and Plan Assess & Plan/Chief Complaint Assessment: 1. dementia 2. constipation 3. hypokalemia 4. possible delerium 5. hyponatremia 6. diabetes mellitus 7. dvt prophylaxis 8. mild anemia Plan: consult surgery manage hypokalemia continue medications monitor labs & reassess as needed SHALONDA RED DO 12/01/19 1508: Subjective HPI/CC On Admission Date Seen by Provider: Dec 01, 2019 Time Seen by Provider: 09:00 Subjective/Events-last exam Pt doing pretty well No significant change Colon impaction is still suspected with liquid stools coming around the impaction Still supplementing potassium IV at 3.5 today so giving another 40mEq but magnesium is normal Review of Systems General: Fatigue, Malaise Neurological: Weakness Objective Exam General Appearance: No Apparent Distress, WD/WN, Chronically ill HEENT: PERRL/EOMI, Normal ENT Inspection, Pharynx Normal, Moist Mucous Membranes Neck: Full Range of Motion, Normal Inspection, Non Tender, Supple, Carotid Bruit Respiratory: Chest Non Tender, Lungs Clear, Normal Breath Sounds, No Accessory Muscle Use, No Respiratory Distress Cardiovascular: Regular Rate, Rhythm, No Edema, No Gallop, No JVD, No Murmur, Normal Peripheral Pulses Gastrointestinal: Normal Bowel Sounds, No Organomegaly, No Pulsatile Mass, Soft, Distended Back: Normal Inspection, No CVA Tenderness, No Vertebral Tenderness Extremity: Normal Capillary Refill, Normal Inspection, Normal Range of Motion, Non Tender, No Calf Tenderness, No Pedal Edema Neurologic/Psychiatric: Alert, No Motor/Sensory Deficits, Depressed Affect, Disoriented Skin: Normal Color, Warm/Dry Lymphatic: No Adenopathy Assessment/Plan Assessment and Plan Assess & Plan/Chief Complaint 12/01/19: Dr. Alston to assess for impaction Replace potassium Diagnosis/Problems Diagnosis/Problems (1) Colonic obstruction (2) Dementia (3) Hypokalemia (4) DVT prophylaxis Supervisory-Addendum Brief Verification & Attestation Participated in pt care: history, MDM, physical Personally performed: exam, history, MDM, supervision of care Care discussed with: Medical Student Procedures: n/a Results interpretation: Verified all documentation Verification and Attestation of Medical Student E/M Service A medical student performed and documented this service in my presence. I reviewed and verified all information documented by the medical student and made modifications to such information, when appropriate. I personally performed the physical exam and medical decision making. Shalonda Red, Dec 02, 2019,04:35 ZEN BERNAL MED STUDENT Dec 01, 2019 10:40 SHALONDA RED DO Dec 01, 2019 15:08
--- NOTE | 2019-12-01 12:30 | NUR ---
"RD ASSESSMENT PMHx: HTN; hypercholesterolemia; schizophrenia PT INTERACTION: Note pt has dementia, per chart review. Note all diet hx information gathered for nutrition assessment is per chart review. Note avg PO intake >75% x4d, but PO intake had declined to avg of 50% on 11/29. Note last BM was 11/30, and pt not currently on bowel regimen. Note recent 8# wt loss x3mon. ABNORMAL NUTRITION-RELATED LAB VALUES LOW: Na 134; K 3.5; Ca 7.8; Pro 4.8; alb 2.4 HIGH: Est. kcal needs: 1475 kcal | 15 kcal/kg Est. Pro needs: 79 g Pro | 0.8 g Pro/kg PES STATEMENT: Inadequate oral intake (NI-2.1) related to loss of appetite as evidenced by chart review | avg PO intake 50% x1d (previously was >75% x4d) INTERVENTION: Continue with current diet order of DYS2 Mechanically Altered diet. Pt may benefit from nutrition supplementation if PO intake declines. Will continue to follow and reassess as pt needs, intake, and status change. MONITOR/EVALUATE: PO Intake; Plan of Care; Hydration Status; Weight Status; Lab Values Arelis Thompson, MS, RD, LD"
--- NOTE | 2019-12-01 16:28 | Progress Note - Surgery ---
RHONDA ZHANG MED STUDENT 12/01/19 1627: Subjective Date Seen by a Provider: Dec 01, 2019 Time Seen by a Provider: 15:15 Subjective/Events-last exam Pt has been having only liquid stools and there is concern for possible impaction. He denies any abdominal pain and was not TTP in any of the four quadrants. Abdomen was soft and not distended. He has had no fevers and has been eating a normal diet. Patient demented and not able to communicate well. Objective Exam Vital Signs Date Time Temp Pulse Resp B/P (MAP) Pulse Ox O2 Delivery O2 Flow Rate FiO2 12/01/19 08:00 Room Air 12/01/19 05:42 36.2 93 20 119/72 (88) 94 Room Air 11/30/19 20:15 Room Air 11/30/19 17:25 36.3 88 18 138/88 (105) 96 Room Air I & O 12/01/19 07:00 Intake Total 1930 ml Balance 1930 ml Capillary Refill : Less Than 3 Seconds General Appearance: No Apparent Distress, WD/WN HEENT: PERRL/EOMI, Moist Mucous Membranes Neck: Full Range of Motion, Normal Inspection, Non Tender, Supple Respiratory: Chest Non Tender, Lungs Clear, Normal Breath Sounds, No Accessory Muscle Use, No Respiratory Distress Cardiovascular: Regular Rate, Rhythm, No Edema, No Murmur Gastrointestinal: non tender, soft, no organomegaly; No guarding, No tenderness Extremity: Normal Inspection, Non Tender, No Calf Tenderness, No Pedal Edema Neurologic/Psychiatric: Alert, No Motor/Sensory Deficits, Normal Mood/Affect Skin: Normal Color, Warm/Dry Lymphatic: No Adenopathy Results Lab Laboratory Tests 11/30/19 20:12: Glucometer 91 12/01/19 05:24: Glucometer 98 12/01/19 06:20: White Blood Count 5.2, Red Blood Count 3.94L, Hemoglobin 12.1L, Hematocrit 36L, Mean Corpuscular Volume 91, Mean Corpuscular Hemoglobin 31, Mean Corpuscular Hemoglobin Concent 34, Red Cell Distribution Width 13.7, Platelet Count 367, Mean Platelet Volume 8.1, Sodium Level 134L, Potassium Level 3.5L, Chloride Level 101, Carbon Dioxide Level 25, Anion Gap 8, Blood Urea Nitrogen 8, Creatinine 0.69, Estimat Glomerular Filtration Rate > 60, BUN/Creatinine Ratio 12, Glucose Level 91, Calcium Level 7.8L, Corrected Calcium 9.1, Magnesium Level 1.6, Total Bilirubin 0.4, Aspartate Amino Transf (AST/SGOT) 11, Alanine Aminotransferase (ALT/SGPT) 14, Alkaline Phosphatase 93, Total Protein 4.8L, Albumin 2.4L 12/01/19 11:06: Glucometer 112H 12/01/19 16:08: Glucometer 99 Assessment/Plan Assessment/Plan Assessment/Plan Constipation Pt is only passing liquid stools and there is concern of possible impaction. Will order abdominal xray to assess bowels. ARLEN ALSTON DO 12/01/196: Subjective Subjective/Events-last exam Patient minimal interaction with us. Is having liquid stools. Reported to us that he is tolerating diet. Does not appear to be in pain. abdomen is distended but less from previous time seeing him. It is also soft without any appearance of him being in pain. Objective Exam General Appearance: No Apparent Distress, WD/WN HEENT: PERRL/EOMI, Moist Mucous Membranes Neck: Normal Inspection, Non Tender Respiratory: Chest Non Tender, No Accessory Muscle Use, No Respiratory Distress Cardiovascular: Regular Rate, Rhythm, No Edema Gastrointestinal: non tender, soft, distended; No guarding, No rebound, No tenderness Extremity: Normal Inspection, Non Tender, No Calf Tenderness Neurologic/Psychiatric: Alert, Other (minimal interatction) Skin: Normal Color, Warm/Dry Lymphatic: No Adenopathy Assessment/Plan Assessment/Plan Assessment/Plan abdominal distention diarrhea history of constipation hypokalemia will get abdominal x rays consider stool studies No surgical intervention at this time replace electrolytes prn Supervisory-Addendum Brief Verification & Attestation Participated in pt care: history, MDM, physical Personally performed: exam, history, MDM, supervision of care Care discussed with: Medical Student Procedures: n/a Results interpretation: Verified all documentation Verification and Attestation of Medical Student E/M Service A medical student performed and documented this service in my presence. I reviewed and verified all information documented by the medical student and made modifications to such information, when appropriate. I personally performed the physical exam and medical decision making. Arlen Alston, Dec 01, 2019,21:06 RHONDA ZHANG MED STUDENT Dec 01, 2019 16:27 ARLEN ALSTON DO Dec 01, 2019 21:06
[2019-12-01 18:47] VITALS: BP 126/70
--- NOTE | 2019-12-01 23:01 | Diagnostic Imaging Report ---
Clinical indication: Checking for obstruction and distention. Exam: X-ray of the abdomen with multiple supine and upright views. Comparison: X-ray of the abdomen dated 11/27/2019. CT scan of the abdomen and pelvis without contrast dated 11/22/2019. Findings and impression: 1: There is interval slight progression of diffuse gaseous distention of small bowel and colon seen. There is no air in the rectum seen. These findings may represent colonic obstruction versus ileus or atonic bowel. 2: There is no intra-abdominal free air. Surgical clips are seen overlying the right upper quadrant which could be related to cholecystectomy changes. 3: Stable phlebolith in the right pelvis. 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 Dictated by: Dictated on workstation # [id number]
[2019-12-02 06:06] VITALS: BP 148/81
[2019-12-02 06:19] LABS: CHLORIDE 103 MMOL/L (98-107); POTASSIUM 3.6 MMOL/L (3.6-5.0); SODIUM 135 MMOL/L (135-145)
[2019-12-02 06:21] LABS: CALCIUM 7.7 MG/DL (8.5-10.1); GLUCOSE 76 MG/DL (70-105)
[2019-12-02 06:23] LABS: CARBON DIOXIDE 23 MMOL/L (21-32)
[2019-12-02 06:25] LABS: CREATININE SERUM 0.64 MG/DL (0.60-1.30); GFR ESTIMATED > 60
[2019-12-02 06:26] LABS: BUN/CREATININE RATIO 11
[2019-12-02 06:27] LABS: MAGNESIUM 1.6 MG/DL (1.6-2.4)
[2019-12-02] MEDS: inSUlin ASPART (NovoLOG) 1 UNIT/0.01 ML (CHARGE PER UNIT) SC SCH ×4 (06:38→20:12)
[2019-12-02] MEDS: TAMSULOSIN 0.4 MG (FLOMAX) CAP PO SCH ×2 (06:38→18:29)
[2019-12-02] MEDS: FUROSEMIDE 40 MG (LASIX) TAB PO SCH (06:38)
[2019-12-02] MEDS: APIXABAN 5 MG (ELIQUIS) TABLET PO SCH ×2 (09:12→20:39)
[2019-12-02] MEDS: SPIRONOLACTONE 25 MG (ALDACTONE) TAB PO SCH (09:12)
[2019-12-02] MEDS: risperiDONE 1 MG (RisperDAL) TAB PO SCH ×2 (09:13→20:39)
[2019-12-02] MEDS: BENZTROPINE MESYLATE 1 MG (COGENTIN) TAB PO SCH ×2 (09:13→20:39)
--- NOTE | 2019-12-02 10:51 | Physical Therapy Daily Note ---
PT Daily Note-Current Subjective Patient is more alert and wants a shower. Incontinent BM. Mental Status Patient Orientation: Confused Transfers SCALE: Activities may be completed with or without assistive devices. 7-Tpekysutbf-ofrnhoc completes the activity by him/herself with no assistance from a helper. 5-Set-up or Clean-up Assistance-helper sets up or cleans up; patient completes activity. [place] assists only prior to or following the activity. 4-Supervision or Touching Assistance-helper provides verbal cues and/or touchin g/steadying and/or contact guard assistance as patient completes activity. Assistance may be provided throughout the activity or intermittently. 3-Partial/Moderate Assistance-helper does LESS THAN HALF the effort. [place] lifts, holds or supports trunk or limbs, but provides less than half the effort. 2-Substantial/Maximal Assistance-helper does MORE THAN HALF the effort. [place] lifts or holds trunk or limbs and provides more than half the effort. 0-Nkdvhncbs-pporih does ALL the effort. Patient does none of the effort to complete the activity. Or, the assistance of 2 or more helpers is required for the patient to complete the activity. If activity was not attempted, code reason: 7-Patient Refused. 9-Not Applicable-not attempted and the patient did not perform the activity before the current illness, exacerbation or injury. 10-Not Attempted due to Environmental Limitations-(lack of equipment, weather restraints, etc.). 88-Not Attempted due to Medical Conditions or Safety Concerns. Sit to Lying (QC): 3 Lying to Sitting/Side of Bed(Q: 3 Sit to Stand (QC): 3 Chair/Lrb-hw-Pbeyw Xfer(QC): 3 Toilet Transfer (QC): 3 Weight Bearing Right Lower Extremity: Right Full Weight Bearing Left Lower Extremity: Left Full Weight Bearing Gait Training Does the Patient Walk?: Yes Distance: 50' x 2 Walk 10 feet (QC): 3 Walk 50 ft with 2 Turns(QC): 3 Gait Assistive Device: None TREE SAPPER Assessment Assisted patient with toileting prior to shower transfer. Improving with christine tment plan. PT Casino Banker Goals Casino Banker Goals PT Casino Banker Goals Time Frame: Dec 07, 2019 Roll Left & Right (QC): 3 Sit to Lying (QC): 3 Lying-Sitting on Side/Bed(QC): 3 Sit to Stand (QC): 2 Chair/Wnf-ta-Cpegj Xfer(QC): 2 Toilet Transfer (QC): 2 Car Transfer (QC): 88 Does the Patient Walk: No and Walking Goal IS indicated Walk 10 feet (QC): 2 Walk 50ft with 2 Turns (QC): 88 Walk 150 ft (QC): 88 Walking 10ft on Uneven Surface: 88 1 Step (curb) (QC): 88 4 Steps (QC): 88 12 Steps (QC): 88 Picking up an Object (QC): 88 Wheel 50 feet with 2 turns (QC: 88 Wheel 150 feet: 88 PT Plan Treatment/Plan Treatment Plan: Continue Plan of Care Treatment Plan: Bed Mobility, Education, Functional Activity Cristino, Functional Strength, Gait, Safety, Therapeutic Exercise, Transfers Treatment Duration: Dec 07, 2019 Frequency: 6 times per week Estimated Hrs Per Day: .25 hour per day Patient and/or Family Agrees t: Yes Time/GCodes Time In: 908 Time Out: 931 Total Billed Treatment Time: 23 Total Billed Treatment 1 visit FA x 2 23 min MAYELIN HARRY PT Dec 02, 2019 10:51
[2019-12-02] MEDS ORDERED: POTASSIUM CL 10MEQ/50ML IVPB 50 ML IV SCH (11:00)
[2019-12-02] MEDS ORDERED: KCL 20 MEQ TAB (K-DUR) PO ONE (11:15)
--- NOTE | 2019-12-02 11:21 | Progress Note - Hospitalist ---
ALMA CHAPARRO MED STUDENT 12/02/19 1121: Subjective HPI/CC On Admission Date Seen by Provider: Dec 02, 2019 Time Seen by Provider: 10:25 bowel issues Subjective/Events-last exam Patient was awake and sitting up in the chair watching tv today. When asked how he was doing, pt stated that everything was "going good." pt reports no pain. pt is unable to communicate if he is still having loose bowel movements or not. no tenderness to palpation of abdomen. pt has history of severe dementia. Focused Exam Respiratory: Chest Non Tender, Lungs Clear, Normal Breath Sounds, No Accessory Muscle Use, No Respiratory Distress Cardiovascular: Regular Rate, Rhythm, No Edema, No Gallop, No JVD, No Murmur Skin: normal color Objective Exam Vital Signs Vital Signs Date Time Temp Pulse Resp B/P (MAP) Pulse Ox O2 Delivery O2 Flow Rate FiO2 12/02/19 09:57 Room Air 12/02/19 06:06 36.2 75 20 148/81 (103) 94 Capillary Refill : Less Than 3 Seconds General Appearance: No Apparent Distress Neck: Non Tender Respiratory: Chest Non Tender, Lungs Clear, Normal Breath Sounds, No Accessory Muscle Use, No Respiratory Distress Cardiovascular: Regular Rate, Rhythm, No Edema, No Gallop, No JVD, No Murmur Gastrointestinal: Normal Bowel Sounds, Non Tender, Soft Skin: Normal Color Lymphatic: No Adenopathy Results/Procedures Lab Laboratory Tests 12/02/19 05:03 Patient resulted labs reviewed. Assessment/Plan Assessment and Plan Assess & Plan/Chief Complaint Assessment 12/02/19 fecal impaction overflow diarrhea dementia hypokalemia hyponatremia Plan IV potassium continue to monitor bowel movements continue to monitor electrolytes provide symptomatic relief as needed SHALONDA MONACO DO 12/02/19 1430: Subjective HPI/CC On Admission Date Seen by Provider: Dec 02, 2019 Time Seen by Provider: 09:00 Subjective/Events-last exam Pt doing a lot better He is now up in a chair and watching TV Will give more potassium since it is just 3.6 Overall doing better but he is rude and cranky Review of Systems General: Fatigue, Malaise Neurological: Weakness Objective Exam General Appearance: No Apparent Distress, WD/WN, Chronically ill HEENT: PERRL/EOMI, Normal ENT Inspection, Pharynx Normal, Moist Mucous Membranes Neck: Full Range of Motion, Normal Inspection, Non Tender, Supple, Carotid Bruit Respiratory: Chest Non Tender, Lungs Clear, Normal Breath Sounds, No Accessory Muscle Use, No Respiratory Distress Cardiovascular: Regular Rate, Rhythm, No Edema, No Gallop, No JVD, No Murmur, Normal Peripheral Pulses Gastrointestinal: Normal Bowel Sounds, No Organomegaly, No Pulsatile Mass, Non Tender, Soft Back: Normal Inspection, No CVA Tenderness, No Vertebral Tenderness Extremity: Normal Capillary Refill, Normal Inspection, Normal Range of Motion, Non Tender, No Calf Tenderness, No Pedal Edema Neurologic/Psychiatric: Alert, Oriented x3, No Motor/Sensory Deficits, Normal Mood/Affect Skin: Normal Color, Warm/Dry Lymphatic: No Adenopathy Assessment/Plan Assessment and Plan Assess & Plan/Chief Complaint 12/02/19: Give more potassium IV Monitor closely Appears to be improved Supervisory-Addendum Brief Verification & Attestation Participated in pt care: history, MDM, physical Personally performed: exam, history, MDM, supervision of care Care discussed with: Medical Student Procedures: n/a Results interpretation: Verified all documentation Verification and Attestation of Medical Student E/M Service A medical student performed and documented this service in my presence. I reviewed and verified all information documented by the medical student and made modifications to such information, when appropriate. I personally performed the physical exam and medical decision making. Shalonda Monaco, Dec 03, 2019,06:02 ALMA CHAPARRO MED STUDENT Dec 02, 2019 11:21 SHALONDA MONACO DO Dec 02, 2019 14:30
--- NOTE | 2019-12-02 11:48 | Occupational Ther Daily Note ---
OT Current Status-Daily Note Subjective Pt seen in recliner. Pt moves eyes to OT upon verbal entry. Pt utilizes minimal verbals. Pt does not nod yes/ no to pain, though remains alert through session. Mental Status/Objective Patient Orientation: Person ADL-Treatment Therapy Code Descriptions/Definitions Functional [place] Measure: 0=Not Assessed/NA 4=Minimal Assistance 1=Total Assistance 5=Supervision or Setup 2=Maximal Assistance 6=Modified [place] 3=Moderate Assistance 7=Complete IndependenceSCALE: Activities may be completed with or without assistive devices. 2-Grwgglgvzq-quzzyfc completes the activity by him/herself with no assistance from a helper. 5-Set-up or Clean-up Assistance-helper sets up or cleans up; patient completes activity. [place] assists only prior to or following the activity. 4-Supervision or Touching Assistance-helper provides verbal cues and/or touching/steadying and/or contact guard assistance as patient completes activit y. Assistance may be provided throughout the activity or intermittently. 3-Partial/Moderate Assistance-helper does LESS THAN HALF the effort. [place] lifts, holds or supports trunk or limbs, but provides less than half the effort. 2-Substantial/Maximal Assistance-helper does MORE THAN HALF the effort. [place] lifts or holds trunk or limbs and provides more than half the effort. 8-Nwigcmjhv-hxicrg does ALL the effort. Patient does none of the effort to complete the activity. Or, the assistance of 2 or more helpers is required for the patient to complete the activity. If activity was not attempted, code reason: 7-Patient Refused. 9-Not Applicable-not attempted and the patient did not perform the activity before the current illness, exacerbation or injury. 10-Not Attempted due to Environmental Limitations-(lack of equipment, weather restraints, etc.). 88-Not Attempted due to Medical Conditions or Safety Concerns. On/Off Footwear: 2 (Pt doffs R sock with max cues and min A, does not attempt LLE, lotion is placed on pt's feet; pt able to extend knees to bring toes toward socks with purposeful movement.) Other Treatment Pt seen in chair. Pt does not verbally respond to most tasks/ questions. When questioned if pt took shower pt states, "Yes I took a shower," then asked if he assisted pt states, "Yes." Pt completes lotion donning task on BUE, when requested pt able to rub both hands together. Pt does not respond when asked if desires lotion on legs, pt given lotion on hand and is asked to place on legs. Pt completes with min cues. Pt able to doff R sock minimally as above. Pt begins to stand. Pt is asked to sit until gait belt placed. Pt ambulates with CGA around bed and begins to lay in middle of bed. Pt is asked to stand to move bottom toward HOB. Pt requires tactile/ verbal cues to stand (completes with CGA). Pt moves bottom toward HOB with cues, mod A to return to middle of bed/ supine. Pt left with rails up, call light in reach, pt's bed alarm on, water in reach. Education OT Patient Education: Correct positioning, Purpose of tx/functional activities, Safety issues, Transfer techniques Teaching Recipient: Patient Teaching Methods: Demonstration, Discussion Response to Teaching: Verbalize Understanding, Return Demonstration, Reinforcement Needed OT Assisted Goals Assisted Goals Time Frame: Dec 14, 2019 Eating (QC): 4 (met) Oral Hygiene (QC): 3 Toileting Hygiene (QC): 9 Shower/Bathe Self (QC): 9 Upper Body Dressing (QC): 9 Lower Body Dressing (QC): 9 On/Off Footwear (QC): 2 Additional Goals: 1-Demonstrate ADL Tasks, 2-Verbalize Understanding, 3- ImproveStrength/Cristino 1=Demonstrate adherence to instructed precautions during ADL tasks. 2=Patient will verbalize/demonstrate understanding of assistive devices/modifications for ADL. 3=Patient will improve strength/tolerance for activity to enable patient to perform ADL's. OT Education/Plan Problem List/Assessment Assessment: Decreased Activ Tolerance, Decreased Safety Aware, Decreased UE Strength, Dependent Transfers, Impaired Bed Mobility, Impaired Cognition, Impaired Funct Balance, Impaired I ADL's, Impaired Self-Care Skills Discharge Recommendations Plan/Recommendations: Continue POC Therapy Discharge Recommendati: 24 Hour Supervision Treatment Plan/Plan of Care Treatment,Training & Education: Yes Patient would benefit from OT for education, treatment and training to promote independence in ADL's, mobility, safety and/or upper extremity function for ADL's. Plan of Care: ADL Retraining, Functional Mobility, UE Funct Exercise/Act Treatment Duration: Dec 14, 2019 Frequency: 5 times per week Estimated Hrs Per Day: .25 hour per day Agreement: Yes Rehab Potential: Guarded Time/GCodes Start Time: 11:00 Stop Time: 11:15 Total Time Billed (hr/min): 15 Billed Treatment Time 1, ADL (15) LEONARDO TILLMAN OTR Dec 02, 2019 11:48
[2019-12-02 16:51] VITALS: BP 148/81
[2019-12-02] MEDS ORDERED: RT-ALBUTEROL SULF 2.5 MG/3 ML PRE-MIX VIAL INH PRN (17:00)
[2019-12-02 17:30] VITALS: BP 108/66
--- NOTE | 2019-12-02 21:03 | Progress Note - Surgery ---
Subjective Date Seen by a Provider: Dec 02, 2019 Time Seen by a Provider: 11:35 Subjective/Events-last exam Patient does not verbalize with me. He is reported to having liquid stools from nurse. Does not seem to have pain. No family at bedside. Tolerating diet. Objective Exam Vital Signs Date Time Temp Pulse Resp B/P (MAP) Pulse Ox O2 Delivery O2 Flow Rate FiO2 12/02/19 18:42 96 Room Air 21 12/02/19 17:30 36.4 84 20 108/66 (80) 98 Room Air 12/02/19 16:51 36.2 75 94 21 12/02/19 14:36 94 12/02/19 09:57 Room Air 12/02/19 06:06 36.2 75 20 148/81 (103) 94 Room Air I & O 12/02/19 07:00 Intake Total 2040 ml Balance 2040 ml Capillary Refill : Less Than 3 Seconds General Appearance: No Apparent Distress, WD/WN HEENT: PERRL/EOMI, Normal ENT Inspection Neck: Full Range of Motion, Normal Inspection, Non Tender, Supple Respiratory: Chest Non Tender, No Accessory Muscle Use, No Respiratory Distress Cardiovascular: Regular Rate, Rhythm, No Edema Gastrointestinal: non tender, soft, distended; No guarding, No rebound, No tenderness Extremity: Normal Capillary Refill, Normal Inspection, Normal Range of Motion, Non Tender, No Calf Tenderness, No Pedal Edema Neurologic/Psychiatric: Alert, No Motor/Sensory Deficits Skin: Normal Color, Warm/Dry Lymphatic: No Adenopathy Results Lab Laboratory Tests 12/02/19 05:03: Sodium Level 135, Potassium Level 3.6, Chloride Level 103, Carbon Dioxide Level 23, Anion Gap 9, Blood Urea Nitrogen 7, Creatinine 0.64, Estimat Glomerular Filtration Rate > 60, BUN/Creatinine Ratio 11, Glucose Level 76, Calcium Level 7.7L, Magnesium Level 1.6 12/02/19 10:52: Glucometer 81 12/02/19 15:18: Glucometer 89 12/02/19 20:02: Glucometer 94 Assessment/Plan Assessment/Plan Assessment/Plan abdominal distention diarrhea history of constipation hypokalemia x ray bowel distention with decompressed rectum, he is having stools. will do bowel prep and likely do colonoscopy next week if patient still here or could be arranged as outpatient his abdomen is distended but still improving and is soft and nontender No surgical intervention at this time replace electrolytes prn will see on Thursday please call if needed before then ARLEN ROMERO DO Dec 02, 2019 21:03
[2019-12-03 05:36] VITALS: BP 123/79
[2019-12-03] MEDS: inSUlin ASPART (NovoLOG) 1 UNIT/0.01 ML (CHARGE PER UNIT) SC SCH ×4 (05:46→20:31)
[2019-12-03] MEDS: FUROSEMIDE 40 MG (LASIX) TAB PO SCH (05:48)
[2019-12-03] MEDS: TAMSULOSIN 0.4 MG (FLOMAX) CAP PO SCH ×2 (05:48→16:55)
--- NOTE | 2019-12-03 07:31 | Progress Note - Hospitalist ---
Subjective HPI/CC On Admission Date Seen by Provider: Dec 03, 2019 Time Seen by Provider: 10:00 bowel issues Subjective/Events-last exam Patient doing well Got up out of chair with alarm going off and safely got into bed while I witnessed the entire scenario Dementia is profound Difficult to understand him No falls but increased risk Potassium will be supplemented more along with Mg Review of Systems General: Fatigue, Malaise Neurological: Confusion Objective Exam Vital Signs Vital Signs Date Time Temp Pulse Resp B/P (MAP) Pulse Ox O2 Delivery O2 Flow Rate FiO2 12/03/19 09:00 Room Air 12/03/19 06:24 96 21 12/03/19 05:36 36.2 78 16 123/79 (94) Capillary Refill : Less Than 3 Seconds General Appearance: No Apparent Distress, WD/WN, Chronically ill, Obese Respiratory: Chest Non Tender, Lungs Clear, Normal Breath Sounds, No Accessory Muscle Use, No Respiratory Distress Cardiovascular: Regular Rate, Rhythm, No Edema, No Gallop, No JVD, No Murmur, Normal Peripheral Pulses Neurologic/Psychiatric: Alert, No Motor/Sensory Deficits, Normal Mood/Affect, Disoriented Results/Procedures Lab Laboratory Tests 12/03/19 08:18 Patient resulted labs reviewed. Assessment/Plan Assessment and Plan Assess & Plan/Chief Complaint Assessment: Colonic obstruction Ileus Severe and refractory hypokalemia Dementia Plan: 12/02/19: Give more potassium IV Monitor closely Appears to be improved 12/03/19: Replace potassium and magnesium Fall risk Diagnosis/Problems Diagnosis/Problems (1) Colonic obstruction (2) Dementia (3) Hypokalemia (4) DVT prophylaxis SALVADOR RED DO Dec 03, 2019 07:31
[2019-12-03 08:28] LABS: BASOPHILS % (AUTO) 0 % (0-10); EOSINOPHILS % (AUTO) 1 % (0-10); HEMATOCRIT 34 % (40-54); HEMOGLOBIN 11.5 G/DL (13.3-17.7); LYMPHOCYTES # (AUTO) 1.1 X 10^3 (1.0-4.0); LYMPHOCYTES % (AUTO) 19 % (12-44); MEAN CORPUSCULAR HEMOGLOBIN 31 PG (25-34); MEAN CORPUSCULAR HGB CONC 34 G/DL (32-36); MEAN CORPUSCULAR VOLUME 91 FL (80-99); MEAN PLATELET VOLUME 8.1 FL (7.4-10.4); MONOCYTES # (AUTO) 0.7 X 10^3 (0.0-1.0); MONOCYTES % (AUTO) 12 % (0-12); NEUTROPHILS % (AUTO) 68 % (42-75); PLATELET COUNT 325 10^3/uL (130-400); RED CELL DISTRIBUTION WIDTH 13.8 % (10.0-14.5); WHITE BLOOD COUNT 5.9 10^3/uL (4.3-11.0)
[2019-12-03 08:36] LABS: ALBUMIN 2.3 GM/DL (3.2-4.5); CHLORIDE 105 MMOL/L (98-107); POTASSIUM 3.4 MMOL/L (3.6-5.0)
[2019-12-03 08:37] LABS: SODIUM 134 MMOL/L (135-145)
[2019-12-03 08:38] LABS: CALCIUM 7.6 MG/DL (8.5-10.1)
[2019-12-03 08:39] LABS: GLUCOSE 97 MG/DL (70-105); TOTAL PROTEIN 4.5 GM/DL (6.4-8.2)
[2019-12-03 08:40] LABS: CARBON DIOXIDE 21 MMOL/L (21-32)
[2019-12-03 08:41] LABS: BILIRUBIN,TOTAL 0.4 MG/DL (0.1-1.0)
[2019-12-03 08:42] LABS: ALKALINE PHOSPHATASE 88 U/L (40-136); CREATININE SERUM 0.62 MG/DL (0.60-1.30); GFR ESTIMATED > 60
[2019-12-03 08:44] LABS: BUN/CREATININE RATIO 11
[2019-12-03 08:45] LABS: ALANINE AMINOTRANSFERASE 11 U/L (0-55)
[2019-12-03 08:46] LABS: MAGNESIUM 1.6 MG/DL (1.6-2.4)
[2019-12-03] MEDS: risperiDONE 1 MG (RisperDAL) TAB PO SCH ×2 (09:12→19:58)
[2019-12-03] MEDS: BENZTROPINE MESYLATE 1 MG (COGENTIN) TAB PO SCH ×2 (09:12→19:56)
[2019-12-03] MEDS: SPIRONOLACTONE 25 MG (ALDACTONE) TAB PO SCH (09:12)
[2019-12-03] MEDS: APIXABAN 5 MG (ELIQUIS) TABLET PO SCH ×2 (09:12→19:56)
--- NOTE | 2019-12-03 09:37 | Physical Therapy Daily Note ---
PT Daily Note-Current Mental Status Patient Orientation: Confused Transfers SCALE: Activities may be completed with or without assistive devices. 7-Jkhoasgglz-vsjzvyp completes the activity by him/herself with no assistance from a helper. 5-Set-up or Clean-up Assistance-helper sets up or cleans up; patient completes activity. [place] assists only prior to or following the activity. 4-Supervision or Touching Assistance-helper provides verbal cues and/or touching/steadying and/or contact guard assistance as patient completes activity. Assistance may be provided throughout the activity or intermittently. 3-Partial/Moderate Assistance-helper does LESS THAN HALF the effort. [place] lifts, holds or supports trunk or limbs, but provides less than half the effort. 2-Substantial/Maximal Assistance-helper does MORE THAN HALF the effort. [place] lifts or holds trunk or limbs and provides more than half the effort. 6-Isbaquctv-oxqylj does ALL the effort. Patient does none of the effort to complete the activity. Or, the assistance of 2 or more helpers is required for the patient to complete the activity. If activity was not attempted, code reason: 7-Patient Refused. 9-Not Applicable-not attempted and the patient did not perform the activity before the current illness, exacerbation or injury. 10-Not Attempted due to Environmental Limitations-(lack of equipment, weather restraints, etc.). 88-Not Attempted due to Medical Conditions or Safety Concerns. Lying to Sitting/Side of Bed(Q: 2 Sit to Stand (QC): 3 Chair/Eev-lv-Hrdjr Xfer(QC): 3 dependent assist to cleanse and change patient. Weight Bearing Right Lower Extremity: Right Full Weight Bearing Left Lower Extremity: Left Full Weight Bearing Gait Training Does the Patient Walk?: Yes Distance: 250' Walk 10 feet (QC): 3 Walk 50 ft with 2 Turns(QC): 3 Walk 150 ft (QC): 3 Gait Assistive Device: None CELL LINER Assessment Patient up in recliner with chair alarm activated and tray in situ. PT Mcfp Goals Testing Specialist Goals PT Testing Specialist Goals Time Frame: Dec 07, 2019 Roll Left & Right (QC): 3 Sit to Lying (QC): 3 Lying-Sitting on Side/Bed(QC): 3 Sit to Stand (QC): 2 Chair/Vuh-mq-Cprsp Xfer(QC): 2 Toilet Transfer (QC): 2 Car Transfer (QC): 88 Does the Patient Walk: No and Walking Goal IS indicated Walk 10 feet (QC): 2 Walk 50ft with 2 Turns (QC): 88 Walk 150 ft (QC): 88 Walking 10ft on Uneven Surface: 88 1 Step (curb) (QC): 88 4 Steps (QC): 88 12 Steps (QC): 88 Picking up an Object (QC): 88 Wheel 50 feet with 2 turns (QC: 88 Wheel 150 feet: 88 PT Plan Treatment/Plan Treatment Plan: Continue Plan of Care Treatment Plan: Bed Mobility, Education, Functional Activity Cristino, Functional Strength, Gait, Safety, Therapeutic Exercise, Transfers Treatment Duration: Dec 07, 2019 Frequency: 6 times per week Estimated Hrs Per Day: .25 hour per day Patient and/or Family Agrees t: Yes Time/GCodes Time In: 916 Time Out: 931 Total Billed Treatment Time: 15 Total Billed Treatment 1 visit FA 15 min MAYELIN HARRY PT Dec 03, 2019 09:37
[2019-12-03] MEDS ORDERED: MAGNESIUM 1 GM/100 ML IVPB 100 ML IV ONE (10:45)
[2019-12-03] MEDS: KCL 10 MEQ TAB (MICRO K) PO SCH ×2 (11:02→16:55)
[2019-12-03] MEDS: POTASSIUM CL 10MEQ/50ML IVPB 50 ML IV SCH ×6 (11:04→15:32)
[2019-12-03] MEDS: NS IV 500 ML 500 ML IV SCH ×2 (11:04→19:58)
[2019-12-03 17:32] VITALS: BP 128/82
[2019-12-04 05:33] VITALS: BP 139/75
[2019-12-04] MEDS: inSUlin ASPART (NovoLOG) 1 UNIT/0.01 ML (CHARGE PER UNIT) SC SCH ×4 (06:13→20:54)
[2019-12-04] MEDS: TAMSULOSIN 0.4 MG (FLOMAX) CAP PO SCH ×2 (06:25→17:27)
[2019-12-04] MEDS: FUROSEMIDE 40 MG (LASIX) TAB PO SCH (06:25)
[2019-12-04] MEDS: KCL 10 MEQ TAB (MICRO K) PO SCH ×2 (09:30→17:27)
[2019-12-04] MEDS: SPIRONOLACTONE 25 MG (ALDACTONE) TAB PO SCH (09:30)
[2019-12-04] MEDS: APIXABAN 5 MG (ELIQUIS) TABLET PO SCH ×2 (09:31→20:09)
[2019-12-04] MEDS: BENZTROPINE MESYLATE 1 MG (COGENTIN) TAB PO SCH ×2 (09:31→20:09)
[2019-12-04] MEDS: risperiDONE 1 MG (RisperDAL) TAB PO SCH ×2 (09:31→20:09)
--- NOTE | 2019-12-04 09:47 | Progress Note - Hospitalist ---
Subjective HPI/CC On Admission Date Seen by Provider: Dec 04, 2019 Time Seen by Provider: 10:00 bowel issues Subjective/Events-last exam NO major changes Dementia is profound Incontinent of bowel most of the time Eating well DC planned for Thursday Review of Systems General: Fatigue, Malaise Gastrointestinal: Diarrhea Neurological: Weakness, Confusion Objective Exam Vital Signs Vital Signs Date Time Temp Pulse Resp B/P (MAP) Pulse Ox O2 Delivery O2 Flow Rate FiO2 12/04/19 18:47 36.9 90 22 113/78 (90) 98 Room Air 12/03/19 06:24 21 Capillary Refill : Less Than 3 Seconds General Appearance: No Apparent Distress, WD/WN, Chronically ill Respiratory: Chest Non Tender, Lungs Clear, Normal Breath Sounds, No Accessory Muscle Use, No Respiratory Distress Cardiovascular: Regular Rate, Rhythm, No Edema, No Gallop, No JVD, No Murmur, Normal Peripheral Pulses Neurologic/Psychiatric: Alert, No Motor/Sensory Deficits, Normal Mood/Affect, Disoriented Results/Procedures Lab Laboratory Tests 12/04/19 10:10 Patient resulted labs reviewed. Assessment/Plan Assessment and Plan Assess & Plan/Chief Complaint Assessment: Colonic obstruction Ileus Severe and refractory hypokalemia Dementia Plan: 12/02/19: Give more potassium IV Monitor closely Appears to be improved 12/03/19: Replace potassium and magnesium Fall risk 12/04/19: DC planned for tomorrow Diagnosis/Problems Diagnosis/Problems (1) Colonic obstruction (2) Dementia (3) Hypokalemia (4) DVT prophylaxis SALVADOR RED DO Dec 04, 2019 09:47
[2019-12-04 10:24] LABS: BASOPHILS % (AUTO) 0 % (0-10); EOSINOPHILS # (AUTO) 0.1 10^3/uL (0.0-0.3); EOSINOPHILS % (AUTO) 2 % (0-10); HEMATOCRIT 37 % (40-54); HEMOGLOBIN 12.5 G/DL (13.3-17.7); LYMPHOCYTES # (AUTO) 1.2 X 10^3 (1.0-4.0); LYMPHOCYTES % (AUTO) 24 % (12-44); MEAN CORPUSCULAR HEMOGLOBIN 31 PG (25-34); MEAN CORPUSCULAR HGB CONC 34 G/DL (32-36); MEAN CORPUSCULAR VOLUME 92 FL (80-99); MEAN PLATELET VOLUME 8.2 FL (7.4-10.4); MONOCYTES # (AUTO) 0.6 X 10^3 (0.0-1.0); MONOCYTES % (AUTO) 12 % (0-12); NEUTROPHILS % (AUTO) 62 % (42-75); PLATELET COUNT 301 10^3/uL (130-400); WHITE BLOOD COUNT 4.8 10^3/uL (4.3-11.0)
[2019-12-04 10:45] LABS: ALANINE AMINOTRANSFERASE 13 U/L (0-55); ALBUMIN 2.5 GM/DL (3.2-4.5); ALKALINE PHOSPHATASE 94 U/L (40-136); BILIRUBIN,TOTAL 0.3 MG/DL (0.1-1.0); BUN/CREATININE RATIO 8; CALCIUM 8.1 MG/DL (8.5-10.1); CARBON DIOXIDE 23 MMOL/L (21-32); CHLORIDE 106 MMOL/L (98-107); CREATININE SERUM 0.72 MG/DL (0.60-1.30); GFR ESTIMATED > 60; GLUCOSE 96 MG/DL (70-105); POTASSIUM 4.1 MMOL/L (3.6-5.0); SODIUM 137 MMOL/L (135-145); TOTAL PROTEIN 4.9 GM/DL (6.4-8.2)
[2019-12-04 18:47] VITALS: BP 113/78
[2019-12-04] MEDS: NS IV 500 ML 500 ML IV SCH (20:55)
[2019-12-05 05:22] VITALS: BP 101/59
[2019-12-05 06:25] LABS: BASOPHILS % (AUTO) 0 % (0-10); EOSINOPHILS # (AUTO) 0.1 10^3/uL (0.0-0.3); EOSINOPHILS % (AUTO) 1 % (0-10); HEMATOCRIT 32 % (40-54); HEMOGLOBIN 10.8 G/DL (13.3-17.7); LYMPHOCYTES # (AUTO) 1.5 X 10^3 (1.0-4.0); LYMPHOCYTES % (AUTO) 33 % (12-44); MEAN CORPUSCULAR HEMOGLOBIN 32 PG (25-34); MEAN CORPUSCULAR HGB CONC 34 G/DL (32-36); MEAN CORPUSCULAR VOLUME 93 FL (80-99); MEAN PLATELET VOLUME 8.5 FL (7.4-10.4); MONOCYTES # (AUTO) 0.5 X 10^3 (0.0-1.0); MONOCYTES % (AUTO) 10 % (0-12); NEUTROPHILS # (AUTO) 2.6 X 10^3 (1.8-7.8); NEUTROPHILS % (AUTO) 55 % (42-75); PLATELET COUNT 306 10^3/uL (130-400); RED CELL DISTRIBUTION WIDTH 14.3 % (10.0-14.5); WHITE BLOOD COUNT 4.6 10^3/uL (4.3-11.0)
[2019-12-05] MEDS: FUROSEMIDE 40 MG (LASIX) TAB PO SCH (06:33)
[2019-12-05] MEDS: TAMSULOSIN 0.4 MG (FLOMAX) CAP PO SCH (06:33)
[2019-12-05] MEDS: inSUlin ASPART (NovoLOG) 1 UNIT/0.01 ML (CHARGE PER UNIT) SC SCH ×2 (06:37→11:00)
[2019-12-05 06:40] LABS: ALBUMIN 2.2 GM/DL (3.2-4.5); CHLORIDE 105 MMOL/L (98-107); POTASSIUM 3.5 MMOL/L (3.6-5.0); SODIUM 135 MMOL/L (135-145)
[2019-12-05 06:41] LABS: CALCIUM 7.6 MG/DL (8.5-10.1)
[2019-12-05 06:42] LABS: GLUCOSE 80 MG/DL (70-105); TOTAL PROTEIN 4.2 GM/DL (6.4-8.2)
[2019-12-05 06:43] LABS: CARBON DIOXIDE 22 MMOL/L (21-32)
[2019-12-05 06:44] LABS: BILIRUBIN,TOTAL 0.3 MG/DL (0.1-1.0)
[2019-12-05 06:46] LABS: ALKALINE PHOSPHATASE 86 U/L (40-136); CREATININE SERUM 0.69 MG/DL (0.60-1.30); GFR ESTIMATED > 60
[2019-12-05 06:47] LABS: BUN/CREATININE RATIO 9
[2019-12-05 06:49] LABS: ALANINE AMINOTRANSFERASE 10 U/L (0-55)
[2019-12-05 07:16] LABS: BAND NEUTROPHILS 12 %; HYPOCHROMASIA SLIGHT; LYMPHOCYTES % (MANUAL) 25 %; MONOCYTES % (MANUAL) 8 %; NEUTROPHILS % (MANUAL) 55 %
[2019-12-05 07:17] LABS: BURR CELLS SLIGHT
--- NOTE | 2019-12-05 08:37 | Occ Therapy Progress Note ---
Therapy Progress Note Attempted treatment with pt. Pt. asleep with breakfast tray in front of him. Pt. has not eaten yet. OT attempts multiple times to wake him up to facilitate feeding. Pt. will not wake up. Does occasionally say a one word response. Pt. also did open eyes one time. However, will not participate at this time due to grogginess. OT will come back later. 0830 1, visit KAMARI ANDERSON OT Dec 05, 2019 08:37
[2019-12-05] MEDS: APIXABAN 5 MG (ELIQUIS) TABLET PO SCH (09:01)
[2019-12-05] MEDS: KCL 10 MEQ TAB (MICRO K) PO SCH (09:01)
[2019-12-05] MEDS: BENZTROPINE MESYLATE 1 MG (COGENTIN) TAB PO SCH (09:02)
[2019-12-05] MEDS: risperiDONE 1 MG (RisperDAL) TAB PO SCH (09:02)
[2019-12-05] MEDS: SPIRONOLACTONE 25 MG (ALDACTONE) TAB PO SCH (09:03)
[2019-12-05 09:07] VITALS: BP 98/63
--- NOTE | 2019-12-05 09:32 | Progress Note - Surgery ---
ALBANIARHONDA Soares MED STUDENT 12/05/19 0932: Subjective Date Seen by a Provider: Dec 05, 2019 Time Seen by a Provider: 08:35 Subjective/Events-last exam Pt alert and sitting up eating a normal diet breakfast but unable to verbalize due to severe dementia. Abdomen is not distended, nontender to palpation, and markedly more soft than it has been previously. He does not appear to be in any pain. He continues to have loose stools and nursing staff reports bowel incontinence the majority of the time. Objective Exam Vital Signs Date Time Temp Pulse Resp B/P (MAP) Pulse Ox O2 Delivery O2 Flow Rate FiO2 12/05/19 09:07 86 98/63 (75) 12/05/19 07:49 Room Air 12/05/19 05:22 36.8 84 20 101/59 (73) 92 Room Air 12/04/19 20:20 Room Air 12/04/19 18:47 36.9 90 22 113/78 (90) 98 Room Air I & O 12/05/19 07:00 Intake Total 1035 ml Balance 1035 ml Capillary Refill : Less Than 3 SecondsLess Than 3 Seconds General Appearance: No Apparent Distress, WD/WN, Chronically ill HEENT: PERRL/EOMI, Moist Mucous Membranes Neck: Full Range of Motion, Normal Inspection, Non Tender, Supple, Carotid Bruit Respiratory: Chest Non Tender, Lungs Clear, Normal Breath Sounds, No Accessory Muscle Use, No Respiratory Distress Cardiovascular: Regular Rate, Rhythm, No Edema, No Gallop, No JVD, No Murmur, Normal Peripheral Pulses Gastrointestinal: non tender, soft, distended; No guarding, No rebound, No tenderness Extremity: Normal Capillary Refill, Normal Inspection, Normal Range of Motion, Non Tender, No Calf Tenderness, No Pedal Edema Neurologic/Psychiatric: Alert, No Motor/Sensory Deficits, Normal Mood/Affect, Disoriented Skin: Normal Color, Warm/Dry Lymphatic: No Adenopathy Results Lab Laboratory Tests 12/04/19 10:10: White Blood Count 4.8, Red Blood Count 4.00L, Hemoglobin 12.5L, Hematocrit 37L, Mean Corpuscular Volume 92, Mean Corpuscular Hemoglobin 31, Mean Corpuscular Hemoglobin Concent 34, Red Cell Distribution Width 14.0, Platelet Count 301, Mean Platelet Volume 8.2, Neutrophils (%) (Auto) 62, Lymphocytes (%) (Auto) 24, Monocytes (%) (Auto) 12, Eosinophils (%) (Auto) 2, Basophils (%) (Auto) 0, Neutrophils # (Auto) 3.0, Lymphocytes # (Auto) 1.2, Monocytes # (Auto) 0.6, Eosinophils # (Auto) 0.1, Basophils # (Auto) 0.0, Sodium Level 137, Potassium Level 4.1, Chloride Level 106, Carbon Dioxide Level 23, Anion Gap 8, Blood Urea Nitrogen 6L, Creatinine 0.72, Estimat Glomerular Filtration Rate > 60, BUN/Creatinine Ratio 8, Glucose Level 96, Calcium Level 8.1L, Corrected Calcium 9.3, Total Bilirubin 0.3, Aspartate Amino Transf (AST/SGOT) 11, Alanine Aminotransferase (ALT/SGPT) 13, Alkaline Phosphatase 94, Total Protein 4.9L, Albumin 2.5L 12/04/19 11:26: Glucometer 82 12/04/19 15:45: Glucometer 86 12/04/19 20:35: Glucometer 93 12/05/19 05:39: White Blood Count 4.6, Red Blood Count 3.42L, Hemoglobin 10.8L, Hematocrit 32L, Mean Corpuscular Volume 93, Mean Corpuscular Hemoglobin 32, Mean Corpuscular Hemoglobin Concent 34, Red Cell Distribution Width 14.3, Platelet Count 306, Mean Platelet Volume 8.5, Neutrophils (%) (Auto) 55, Lymphocytes (%) (Auto) 33, Monocytes (%) (Auto) 10, Eosinophils (%) (Auto) 1, Basophils (%) (Auto) 0, Neutrophils # (Auto) 2.6, Lymphocytes # (Auto) 1.5, Monocytes # (Auto) 0.5, Eos inophils # (Auto) 0.1, Basophils # (Auto) 0.0, Neutrophils % (Manual) 55, Lymphocytes % (Manual) 25, Monocytes % (Manual) 8, Band Neutrophils 12, Hypochromasia SLIGHT, Daniella Cells SLIGHT, Sodium Level 135, Potassium Level 3.5L, Chloride Level 105, Carbon Dioxide Level 22, Anion Gap 8, Blood Urea Nitrogen 6L , Creatinine 0.69, Estimat Glomerular Filtration Rate > 60, BUN/Creatinine Ratio 9, Glucose Level 80, Calcium Level 7.6L, Corrected Calcium 9.0, Total Bilirubin 0.3, Aspartate Amino Transf (AST/SGOT) 14, Alanine Aminotransferase (ALT/SGPT) 10, Alkaline Phosphatase 86, Total Protein 4.2L, Albumin 2.2L 12/05/19 06:36: Glucometer 74 Assessment/Plan Assessment/Plan Assessment/Plan abdominal distention diarrhea history of constipation hypokalemia His abdomen is no longer distended, is soft and nontender No surgical intervention at this time Outpatient colonoscopy can be arranged if problems persist ARLEN ALSTON DO 12/05/19 1521: Subjective Subjective/Events-last exam Patient eating breakfast. Abdomen soft minimal to no distention at this time. Having bowel function. Not appearing to have any pain or discomfort. Objective Exam General Appearance: No Apparent Distress, WD/WN HEENT: PERRL/EOMI Neck: Full Range of Motion, Non Tender Respiratory: Chest Non Tender, No Accessory Muscle Use Gastrointestinal: non tender, soft, distended (minimal to normal) Extremity: Normal Capillary Refill, Non Tender, No Calf Tenderness Neurologic/Psychiatric: Alert; No Oriented x3 Skin: Normal Color, Warm/Dry Lymphatic: No Adenopathy Assessment/Plan Assessment/Plan Assessment/Plan abdominal distention diarrhea history of constipation hypokalemia patient seems to be improved. could do formal colonoscopy as outpatient if wishes okay to dc from surgical standpoint. Supervisory-Addendum Brief Verification & Attestation Participated in pt care: history, MDM, physical Personally performed: exam, history, MDM, supervision of care Care discussed with: Medical Student Procedures: n/a Results interpretation: Verified all documentation Verification and Attestation of Medical Student E/M Service A medical student performed and documented this service in my presence. I re viewed and verified all information documented by the medical student and made modifications to such information, when appropriate. I personally performed the physical exam and medical decision making. Arlen Alston, Dec 05, 2019,15:21 RHONDA ZHANG MED STUDENT Dec 05, 2019 09:32 ARLEN ALSTON DO Dec 05, 2019 15:21
--- NOTE | 2019-12-05 09:33 | NUR ---
DISCHARGE PLANNING: Anticipate that patient will return to [facility] today. Visited with [facility] to let them know of probable discharge today. Also notified patient's daughter Arabella of anticipated return today. She denied any questions or concerns. Will update note when rounds and puts in discharge orders. Unsure if patient will discharge with skilled orders or not. Addendum: 12/05/19 at 1009 by THEO ELI RN Will return to [facility] today.
--- NOTE | 2019-12-05 09:47 | Therapy Team Discharge Summary ---
Therapy Discharge Summary Discharge Recommendations Date of Discharge Physical Therapy Patient has attained all functional goals and will return to [facility] on this date. 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 Patient continues to require assistance with bed mobility and transfers, however, improving. Upon initial evaluation, patient was unable to ambulate extended distance. Patient continues to be incontinent BM requiring assistance to cleanse and change clothing. PT to follow at [facility]. Occupational Therapy Decreased Activ Tolerance, Decreased Safety Aware, Decreased UE Strength, Dependent Transfers, Impaired Bed Mobility, Impaired Cognition, Impaired Funct Balance, Impaired I ADL's, Impaired Self-Care Skills PT Prison Goals Prison Goals PT Prison Goals Time Frame: Dec 07, 2019 Roll Left to Right (QC): 3 (met 12/03/19) Sit to Lying (QC): 3 (met 12/03/19) Lying-Sitting on Side/Bed(QC): 3 (met 12/03/19) Sit to Stand (QC): 2 (met 12/03/19) Chair/Odw-zx-Kowme Xfer(QC): 2 (met 12/03/19) Car Transfer (QC): 88 Does the Patient Walk: No and Walking Goal IS indicated Walk 10 feet (QC): 2 (met 12/03/19) Walk 10ft-Uneven Surface(QC): 88 Walk 50ft with 2 Turns (QC): 88 Walk 150 ft (QC): 88 Wheel 50 feet with 2 turns (QC: 88 1 Step (curb) (QC): 88 4 Steps (QC): 88 12 Steps (QC): 88 Picking up an Object (QC): 88 OT Prison Goals Souvenir Assembler Goals Time Frame: Dec 14, 2019 Eating (QC): 4 (met) Oral Hygiene (QC): 3 Shower/Bathe Self (QC): 9 Upper Body Dressing (QC): 9 Lower Body Dressing (QC): 9 On/Off Footwear (QC): 2 Toileting Hygiene (QC): 9 Toilet/Commode Transfer (QC): 2 Additional Goals: 1-Demonstrate ADL Tasks, 2-Verbalize Understanding, 3-Imp roveStrength/Cristino 1=Demonstrate adherence to instructed precautions during ADL tasks. 2=Patient will verbalize/demonstrate understanding of assistive devices/modifications for ADL. 3=Patient will improve strength/tolerance for activity to enable patient to perform ADL's. MAYELIN HARRY PT Dec 05, 2019 09:47
--- NOTE | 2019-12-05 10:12 | Therapy Team Discharge Summary ---
Therapy Discharge Summary Discharge Recommendations Date of Discharge 12-05-19 Therapy D/C Recommendations: 24 hr Supervision Occupational Therapy Pt. seen by occupational therapy to work toward increased independence and strength with overall tasks. Due to pt's profound dementia, his goals and progress were inconsistent. No carryover of tasks present at this time. Due to safety concerns, difficulty with problem solving and cognition, pt. requires max/dependent assist with most ADL skills. Pt. is discharging back to [facility] this date for continued care and 24 hour assistance. Decreased Activ Tolerance, Decreased Safety Aware, Decreased UE Strength, Dependent Transfers, Impaired Bed Mobility, Impaired Cognition, Impaired Funct Balance, Impaired I ADL's, Impaired Self-Care Skills PT Intermediate Goals Intermediate Goals PT Intermediate Goals Time Frame: Dec 07, 2019 Roll Left to Right (QC): 3 (met 12/03/19) Sit to Lying (QC): 3 (met 12/03/19) Lying-Sitting on Side/Bed(QC): 3 (met 12/03/19) Sit to Stand (QC): 2 (met 12/03/19) Chair/Lia-ig-Hbocn Xfer(QC): 2 (met 12/03/19) Car Transfer (QC): 88 Does the Patient Walk: No and Walking Goal IS indicated Walk 10 feet (QC): 2 (met 12/03/19) Walk 10ft-Uneven Surface(QC): 88 Walk 50ft with 2 Turns (QC): 88 Walk 150 ft (QC): 88 Wheel 50 feet with 2 turns (QC: 88 1 Step (curb) (QC): 88 4 Steps (QC): 88 12 Steps (QC): 88 Picking up an Object (QC): 88 OT Intermediate Goals Server Goals Time Frame: Dec 14, 2019 Eating (QC): 4 (met) Oral Hygiene (QC): 3 (not met) Shower/Bathe Self (QC): 9 Upper Body Dressing (QC): 9 Lower Body Dressing (QC): 9 On/Off Footwear (QC): 2 (not met) Toileting Hygiene (QC): 9 Toilet/Commode Transfer (QC): 2 (not met with this therapist.) Additional Goals: 1-Demonstrate ADL Tasks, 2-Verbalize Understanding, 3- ImproveStrength/Cristino 1=Demonstrate adherence to instructed precautions during ADL tasks. 2=Patient will verbalize/demonstrate understanding of assistive devices/modifications for ADL. 3=Patient will improve strength/tolerance for activity to enable patient to perform ADL's. KAMARI ANDERSON OT Dec 05, 2019 10:12
--- NOTE | 2019-12-05 10:36 | Discharge Summary ---
Discharge Summary Reconcile Patient Problems Problems Reviewed?: Yes Hospital Course Hospital Course Date of Admission: Nov 30, 2019 at 09:25 Admission Diagnosis : Family Physician/Provider: Hemanth Lopez MD Date of Discharge: 12/05/19 Discharge Diagnosis: Colonic Obstruction Dementia Hypokalemia Hospital Course: Uneventful hospital course. Labs and Pending Lab Test: Laboratory Tests 12/04/19 11:26: Glucometer 82 12/04/19 15:45: Glucometer 86 12/04/19 20:35: Glucometer 93 12/05/19 05:39: White Blood Count 4.6, Red Blood Count 3.42L, Hemoglobin 10.8L, Hematocrit 32L, Mean Corpuscular Volume 93, Mean Corpuscular Hemoglobin 32, Mean Corpuscular Hemoglobin Concent 34, Red Cell Distribution Width 14.3, Platelet Count 306, Mean Platelet Volume 8.5, Neutrophils (%) (Auto) 55, Lymphocytes (%) (Auto) 33, Monocytes (%) (Auto) 10, Eosinophils (%) (Auto) 1, Basophils (%) (Auto) 0, Neutrophils # (Auto) 2.6, Lymphocytes # (Auto) 1.5, Monocytes # (Auto) 0.5, Eosinophils # (Auto) 0.1, Basophils # (Auto) 0.0, Neutrophils % (Manual) 55, Lymphocytes % (Manual) 25, Monocytes % (Manual) 8, Band Neutrophils 12, Hypochromasia SLIGHT, Daniella Cells SLIGHT, Sodium Level 135, Potassium Level 3.5L, Chloride Level 105, Carbon Dioxide Level 22, Anion Gap 8, Blood Urea Nitrogen 6L , Creatinine 0.69, Estimat Glomerular Filtration Rate > 60, BUN/Creatinine Ratio 9, Glucose Level 80, Calcium Level 7.6L, Corrected Calcium 9.0, Total Bilirubin 0.3, Aspartate Amino Transf (AST/SGOT) 14, Alanine Aminotransferase (ALT/SGPT) 10, Alkaline Phosphatase 86, Total Protein 4.2L, Albumin 2.2L 12/05/19 06:36: Glucometer 74 Home Meds Active Reported Viberzi (Eluxadoline) 100 Mg Tablet 100 Mg PO BID WITH MEALS Tylenol (Acetaminophen) 325 Mg Capsule 650 Mg PO Q4H PRN Risperdal (Risperidone) 1 Mg Tablet 1 Mg PO BID Questran Packet (Cholestyramine (with Sugar)) 4 Gm Powd.pack 12 Gm PO BID USES 3 SCOOPS BID Potassium Chloride 10 Meq Tab.er.prt 20 Meq PO BID TAKES 2 (10MEQ) TABS Miralax (Polyethylene Glycol 3350) 17 Gm Powd.pack 17 Gm PO BID Lipitor (Atorvastatin Calcium) 20 Mg Tablet 20 Mg PO HS Lasix (Furosemide) 40 Mg Tablet 40 Mg PO DAILY Haldol (Haloperidol Lactate) 5 Mg/1 Ml Ampul 5 Mg IJ Q8H PRN 14 Days STOP DATE 12-01-2019 Flomax (Tamsulosin HCl) 0.4 Mg Cap 0.4 Mg PO BID Eliquis (Apixaban) 5 Mg Tablet 5 Mg PO BID Micatin (Miconazole Nitrate) 14 Gm Cream..g. 1 Applic TP UD APPLY USING Q-TIP TO GROIN, COCCYN, KARSON-AREA TOPICALLY EVERY SHIFT FOR GAULDING/IRRITATION Cardizem (Diltiazem HCl) 120 Mg Tablet 240 Mg PO DAILY TAKES 2 (120MG) TABS NOTIFY PHYSICIAN IF BP FALLS OUT OF THE FOLLOWING PARAMETERS FOR 3 CONSECUTIVE DAYS: SBP <90 OR >200 DBP <50 OR >120 PULSE <50 >120 Benztropine Mesylate 1 Mg Tablet 1 Mg PO BID Aldactone (Spironolactone) 25 Mg Tablet 12.5 Mg PO DAILY TAKES OF A 25MG TAB Follow Up Appt.: [facility] at facility Skilled [facility] Admit to: [facility] Certification (SNF) I certify that SNF services are required to be given on an inpatient basis because of the above named patient's need for longterm care on a continuing basis for the conditions(s) for which he/she was receiving inpatient hospital services prior to his/her transfer to the SNF. [facility] Order: Nursing Services, Physical Therapy-Evaluate & Treat, Speech Language-Evaluate & Treat Oxygen Delivery Method: Room Air Discharge Diet: No Restrictions Daily Activity as Tolerated: Yes New & Resume Previous Orders Resume Previous orders Mechelle Mendes Dec 05, 2019 10:28 Discharge Physical Exam General: Alert, No Acute Distress HEENT: Mucous Memb Moist/[place] Lungs: Clear to Auscultation, Normal Air Movement Heart: Regular Rate, No Murmurs Abdomen: Soft, No Tenderness Extremities: No Edema, No Tenderness/Swelling Neuro: Normal Speech (pleasantly confused) MECHELLE MENDES MD Dec 05, 2019 10:33
--- NOTE | 2019-12-05 11:27 | NUR ---
Called [facility] to set up time to pick Herb up. Unable to speak to Ely at this time and so spoke with Sukhdev about patient request of bringing a shirt and shorts for clothing for transport. I also requested that they bring a wheel chair. This was wrote on the fax cover sheet that I also faxed to the facility. Will await a call back to set up a time for transport.
--- NOTE | 2019-12-05 12:30 | NUR ---
Called and spoke with Ely. Updated her on bringing patient clothing and wheel chair as requested by patient. 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 Notified primary care nurse Ruma. No further interventions noted at this time.
[2019-12-05 13:50] VITALS: BP 98/63
--- NOTE | 2019-12-05 13:50 | NUR ---
MARILYN LIMON JR demonstrates understanding of discharge instructions and accurately returns instructions upon questioning. Copy of Post-Discharge Instructions given to PT. MARILYN LIMON JR is able to manage continuing needs after discharge. Patients belongings returned to PT. Patient discharged from [facility] on 12/05/19 at 1350. MARILYN LIMON JR left floor via W/C, accompanied by ST[facility]FF [facility] PER STEPHANIE CHAWLA.
== END 2019-12-05 13:50 | DRG 641 ==
LOC: 4TH 09:25
PROVIDERS: ADMIT Internal Medicine; ATTEND Internal Medicine
DX: E87.6 Hypokalemia (principal); E87.1 Hypo-osmolality and hyponatremia; K59.00 Constipation, unspecified; R14.0 Abdominal distension (gaseous); R19.7 Diarrhea, unspecified; F03.90 Unspecified dementia, unspecified severity, without behavioral disturbance, psychotic disturbance, mood disturbance, and anxiety; D64.9 Anemia, unspecified; E11.9 Type 2 diabetes mellitus without complications; R53.83 Other fatigue; R53.81 Other malaise; R53.1 Weakness; R15.9 Full incontinence of feces
CPT/HCPCS: 36415; 74019; 80048; 80053; 82962; 83735; 85007; 85025; 85027; 94760